=== PATIENT | female | born 1950 | race Caucasian/White ===

== ENCOUNTER → 2016-12-02 | Outpatient (CLI) | payer OTHER ==
[~2016-12-02] MED LIST: ACET-1256 PO; ADVIN50/60 INH; ADVIN50050 INH; ALBU1AER9 INH; ASPEC81 PO; ASPI81TA28 PO; B-CO1CAP17 PO; B-COCAP20 PO; CALC667C PO; CARV25TA2 PO; CRG25 PO; FERR325T51 PO; HYDR-5688 PO; IBUP-103 PO; INSDGI SC; INSDGIPEN SC; IPRASOL4 INH; ISOS60TA25 PO; LINE1TAB2 PO; LINE600T5 PO; MOME200A INH; MULT-506 PO; NVLGI/PEN SC; NVLGI/PEN SQ; OXGN; OXYC-57 PO; PROM25TA9 PO; SPRIN/30 INH; TIOTCAP INH; [UNRECOGNIZED DRUG - CODE] INJ
--- NOTE | 2016-12-02 11:57 | DIAGNOSTIC IMAGING REPORT ---
EXAMINATION: RENAL ULTRASOUND CLINICAL HISTORY: R FLANK PAIN COMPARISON STUDY: 10/18/2013 FINDINGS: The right kidney measures 9.9 cm. The left kidney measures 10.3 cm. There is no evidence of hydronephrosis. There is a 7 mm cortical cyst involving the upper pole the left kidney. The bladder was not well-distended. Neither ureteral jet was visualized. The spleen was mildly enlarged measuring 14.7 cm. IMPRESSION : 1. 7 mm upper pole left renal cyst 2. No evidence of hydronephrosis 3. Mild splenomegaly Electronically signed by: Zafar Ordoñez M.D. 12/02/2016 11:54 AM Dictated Date/Time: 12/02/2016 11:52 AM
== END | disposition home or self-care (01) ==
LOC: C.ULTR 11:18
PROVIDERS: ATTEND Internal Medicine Nephrology
DX: R10.11 Right upper quadrant pain (principal); R10.32 Left lower quadrant pain; N28.1 Cyst of kidney, acquired

== ENCOUNTER 2017-03-17 01:39 | Inpatient (IN) | payer OTHER ==
[~2017-03-17] VITALS: Ht 157.5 cm; Wt 87.1 kg
[2017-03-17] VITALS (27 sets, daily range): BP systolic 93–146; BP diastolic 38–79; PULSE 60–103; TEMP 36.5–36.8; O2SAT 92–100; BMI 36.2
[~2017-03-17 01:39] MED LIST changes: -ACET-1256 PO; -ADVIN50/60 INH; -ASPI81TA28 PO; -B-CO1CAP17 PO; -CALC667C PO; -CRG25 PO; -HYDR-5688 PO; -IBUP-103 PO; -INSDGIPEN SC; -LINE1TAB2 PO; -LINE600T5 PO; -MOME200A INH; -NVLGI/PEN SC; -OXGN; -OXYC-57 PO; -PROM25TA9 PO; -SPRIN/30 INH
[2017-03-17 01:56] LABS: BASO % 0.3 %; BASO ABS # 0.04 K/uL (0-0.2); COMPLETE YES; EOS % 1.9 %; HEMATOCRIT 36.4 % (37-47); IG% 0.5 %; LYMPH % 12.5 %; MEAN CELL VOLUME 99.5 fL (80-100); MEAN CORPUSCULAR HGB CONC 32.1 g/dl (32-36); MEAN PLATELET VOLUME 9.9 fL (7.4-10.4); NEUT % 79.8 %; PLATELET COUNT 312 K/uL (130-400); RED BLOOD COUNT 3.66 M/uL (4.2-5.4); WHITE BLOOD COUNT 15.15 K/uL (4.8-10.8)
[2017-03-17] MEDS ORDERED: FUROSEMIDE INJ 80 MG in SYRINGE 0 ML IV STA (02:02)
[2017-03-17] MEDS ORDERED: ADVIN50/60 INH (02:03)
[2017-03-17] MEDS ORDERED: ASPI81TA28 PO (02:03)
[2017-03-17] MEDS ORDERED: SPRIN/30 INH (02:05)
[2017-03-17] MEDS ORDERED: INSDGI SC (02:05)
[2017-03-17] MEDS ORDERED: FUROSEMIDE 40 MG/4 ML VIAL ONE (02:08)
--- NOTE | 2017-03-17 02:09 | EMERGENCY ROOM VISIT NOTE ---
History Report prepared by Abbyibbrandin: Hilary Mora Under the Supervision of: Dr. Ludwig Corona D.O. First contact with patient: 01:40 Chief Complaint: RESPIRATORY DISTRESS Stated Complaint: RESPIRATORY DISTRESS History of Present Illness The patient is a 66 year old female who presents to the Emergency Room with complaints of an episode of severe shortness of breath starting prior to arrival. Per EMS, the patient is supposed to go to dialysis 3 times a week and missed a round two days ago. EMS notes that he abdomen became distended after being put on BiPAP. The patient was given Duo neb, albuterol neb, and CPAP prior to arrival by EMS. The patient reports that she missed her dialysis because she had to take care of her brain injured son and she couldn't leave him alone. The patient denies abdominal pain, nausea, chest pain, and dizziness. Source of History: patient Onset: prior to arrival Position: other (global) Symptom Intensity: severe Quality: other (global) Timing: other (episode) Associated Symptoms: No chest pain, No nausea, No abdominal pain Note: The patient denies dizziness. Review of Systems ROS unattainable due to clinical condition. Past Medical & Surgical Medical Problems: (1) Acute kidney injury (2) Acute respiratory distress (3) Chronic kidney disease (CKD) stage G4/A1, severely decreased glomerular filtration rate (GFR) between 15-29 mL/min/1.73 square meter and albuminuria creatinine ratio less than 30 mg/g (4) Chronic kidney disease, stage 4 (severe) (5) Chronic kidney disease, stage III (moderate) (6) Chronic osteomyelitis (7) Congestive heart failure (CHF) (8) Congestive heart failure with left ventricular systolic dysfunction (9) COPD (chronic obstructive pulmonary disease) (10) DIAB MANJIT WO COMPL, TYPE II OR UNSPEC TYPE, NOT UNCNTRLD (11) Elevated troponin (12) Hypercholesterolemia (13) Hyperkalemia, diminished renal excretion (14) Hypertension (15) HYPERTENSION NOS (16) Hypoxemia (17) Kidney disease (18) Metabolic acidosis with normal anion gap and failure of bicarbonate regeneration (19) Obesity (20) Obstructive sleep apnea (21) Peripheral neuropathy (22) PNEUMONIA, ORGANISM NOS (23) Proteinuria (24) Pulmonary edema (25) Secondary hyperparathyroidism of renal origin (26) SOB (shortness of breath) (27) Vitamin D deficiency, unspecified (28) Volume overload Family History FH: HTN (hypertension) Social History Smoking Status: Never Smoker Smokeless Tobacco Use: No Drug Use: none Housing Status: lives with family Current/Historical Medications Scheduled Aspirin (Aspirin Ec), 81 MG PO DAILY Carvedilol (Coreg), 25 MG PO BID Fluticasone Prop/Salmeterol (Advair Diskus 500/50 60 Dose), 1 PUFF INH BID Insulin Aspart (Novolog Flexpen), 10 UNITS SQ TIDM Insulin Glargine (Lantus), 20 UNITS SC BID Ipratropium-Albuterol (Duoneb), 1 TREATMENT INH QID Tiotropium [place] (Spiriva Handihaler), 1 CAP INH DAILY Allergies Coded Allergies: Hydralazine (Verified Allergy, Intermediate, rash, 03/17/17) Isosorbide Nitrate (Verified Allergy, Unknown, ITCHING, 03/17/17) EZE Inhibitors (Verified Adverse Reaction, Unknown, DUE TO CKD, 03/17/17) Physical Exam Vital Signs Date Time Temp Pulse Resp B/P (MAP) Pulse Ox O2 Delivery O2 Flow Rate FiO2 03/17/17 03:00 37.0 98 28 156/101 94 Nasal Cannula 4.0 03/17/17 02:17 94 Nasal Cannula 4.0 03/17/17 02:12 101 23 136/62 94 Nasal Cannula 4.0 03/17/17 02:10 90 Nasal Cannula 2.0 03/17/17 02:01 101 23 151/69 97 Nasal Cannula 2.0 03/17/17 01:55 103 100 100 03/17/17 01:51 100 26 161/75 100 BiPAP 100 03/17/17 01:47 106 03/17/17 01:45 108 24 160/80 100 BiPAP 03/17/17 01:45 100 BiPAP 100 03/17/17 01:45 BiPAP 03/17/17 01:45 100 BiPAP 100 Physical Exam GENERAL: Awake, alert, well-appearing, in no distress HENT: Normocephalic, atraumatic. Oropharynx unremarkable. EYES: Normal conjunctiva. Sclera non-icteric. NECK: Supple. No nuchal rigidity. FROM. No JVD. RESPIRATORY: Mild respiratory distress. Crackles. CARDIAC: Tachycardic rate, normal rhythm. Extremities warm and well perfused. Pulses equal. ABDOMEN: Distended. No tenderness to palpation. No rebound or guarding. No masses. RECTAL: Deferred. MUSCULOSKELETAL: Chest examination reveals no tenderness. The back is symmetrical on inspection without obvious abnormality. There is no CVA tenderness to palpation. No joint edema. AV graft in LUE. LOWER EXTREMITIES: Calves are equal size bilaterally and non-tender. Bilateral edema. No discoloration. NEURO: Normal sensorium. No sensory or motor deficits noted. SKIN: No rash or jaundice noted. Medical Decision & Procedures ER Provider Diagnostic Interpretation: CHEST X_RAY: Findings: The results were interperted by me. The x-ray shows congestive heart failure. Laboratory Results 03/17/17 01:45 Red Blood Count 3.66, Mean Corpuscular Volume 99.5, Mean Corpuscular Hemoglobin 32.0, Mean Corpuscular Hemoglobin Concent 32.1, Mean Platelet Volume 9.9, Neutrophils (%) (Auto) 79.8, Lymphocytes (%) (Auto) 12.5, Monocytes (%) (Auto) 5.0, Eosinophils (%) (Auto) 1.9, Basophils (%) (Auto) 0.3, Neutrophils # (Auto) 12.10, Lymphocytes # (Auto) 1.90, Monocytes # (Auto) 0.75, Eosinophils # (Auto) 0.29, Basophils # (Auto) 0.04 03/17/17 01:45 Test 03/17/17 01:45 03/17/17 01:49 White Blood Count 15.15 K/uL (4.8-10.8) Red Blood Count 3.66 M/uL (4.2-5.4) Hemoglobin 11.7 g/dL (12.0-16.0) Hematocrit 36.4 % (37-47) Mean Corpuscular Volume 99.5 fL (80-100) Mean Corpuscular Hemoglobin 32.0 pg (25-34) Mean Corpuscular Hemoglobin Concent 32.1 g/dl (32-36) Platelet Count 312 K/uL (130-400) Mean Platelet Volume 9.9 fL (7.4-10.4) Neutrophils (%) (Auto) 79.8 % Lymphocytes (%) (Auto) 12.5 % Monocytes (%) (Auto) 5.0 % Eosinophils (%) (Auto) 1.9 % Basophils (%) (Auto) 0.3 % Neutrophils # (Auto) 12.10 K/uL (1.4-6.5) Lymphocytes # (Auto) 1.90 K/uL (1.2-3.4) Monocytes # (Auto) 0.75 K/uL (0.11-0.59) Eosinophils # (Auto) 0.29 K/uL (0-0.5) Basophils # (Auto) 0.04 K/uL (0-0.2) RDW Standard Deviation 56.7 fL (36.4-46.3) RDW Coefficient of Variation 16.1 % (11.5-14.5) Immature Granulocyte % (Auto) 0.5 % Immature Granulocyte # (Auto) 0.07 K/uL (0.00-0.02) Anion Gap 7.0 mmol/L (3-11) Est Creatinine Clear Calc Drug Dose 17.2 ml/min Estimated GFR () 15.3 Estimated GFR (Non- 13.2 BUN/Creatinine Ratio 16.8 (10-20) Calcium Level 9.0 mg/dl (8.5-10.1) Total Bilirubin 0.4 mg/dl (0.2-1) Aspartate Amino Transf (AST/SGOT) 19 U/L (15-37) Alanine Aminotransferase (ALT/SGPT) 22 U/L (12-78) Alkaline Phosphatase 162 U/L (45-117) Total Protein 7.8 gm/dl (6.4-8.2) Albumin 3.4 gm/dl (3.4-5.0) Globulin 4.4 gm/dl (2.5-4.0) Albumin/Globulin Ratio 0.8 (0.9-2) Beta-Hydroxybutyric Acid 2.32 mg/dL (0.2-2.81) Bedside Glucose 447 mg/dl (70-90) Laboratory results reviewed by me Medications Administered Medications (Trade) Dose Ordered Sig/Tu Route Start Time Stop Time Status Last Admin Dose Admin Furosemide (Lasix Inj) 80 mg STK-MED ONCE .ROUTE 03/17/17 02:08 03/17/17 02:09 DC 03/17/17 02:13 80 MG Aspirin (Aspirin Chew) 324 mg NOW STAT PO 03/17/17 02:29 03/17/17 02:30 DC 03/17/17 02:54 324 MG ECG Indication: SOB/dyspnea Rate (beats per minute): 104 Rhythm: sinus tachycardia Findings: nonspecific-ST abn, RBBB (incomplete), left axis deviation ED Course 0139: The patient was evaluated in room B1. A complete history and physical exam was performed. 0202: Ordered Furosemide 80 mg/ Syringe 8 ml @ 4 mls/min IV. 0208: Ordered Lasix Inj 80 mg .ROUTE. 0215: The patient is feeling much better. Her respiratory stats have greatly improved. She is on 4 L of O2 and shows no signs of distress. 0248: Discussed the patient's case with Dr. Velazquez. The patient will be evaluated for further treatment and disposition. Medical Decision Differential diagnosis: Etiologies such as infections, reactive airway disease, pneumonia, pneumothorax , COPD, CHF, cardiac ischemia, pulmonary embolism, musculoskeletal, gastrointestinal, as well as others were entertained. Much improved after oxygen, and lasix; given asa for elevated troponin; will admit to [facility]; discussed eval with patient Medication Reconcilliation Current Medication List: was personally reviewed by me Blood Pressure Screening Patient's blood pressure: Elevated blood pressure Chronic, medical end stage renal disease. The patient will be admitted and further monitored. Consults Time Called: [phone] Consulting Physician: Monique Goetz Returned Call: [phone] Discussed the patient's case with Dr. Velazquez. The patient will be evaluated for further treatment and disposition. Impression Primary Impression: Acute respiratory distress Additional Impressions: Pulmonary edema Elevated troponin End stage renal disease Critical Care I have personally spent greater than 35 minutes of critical care time in the direct management of this patient. This includes bedside care, interpretation of diagnostic studies, and testing, discussion with consultants, patient, and family members, and other required patient management activities. This 35 minutes is in excess of all separately billable procedures. Scribe Attestation The scribe's documentation has been prepared under my direction and personally reviewed by me in its entirety. I confirm that the note above accurately reflects all work, treatment, procedures, and medical decision making performed by me. Departure Information Dispostion Being Evaluated By Hospitalist Patient Instructions Asthma - [facility], COPD - [facility], Croup - [facility], My [facility] Health Problem Qualifiers
[2017-03-17] MEDS ORDERED: ASPIRIN 324 MG CHEW PO STA (02:29)
[2017-03-17 02:35] LABS: ALB/GLOB RATIO 0.8 (0.9-2); BUN/CREATININE RATIO 16.8 (10-20); CREATININE 3.4 mg/dl (0.60-1.20); POTASSIUM 5.3 mmol/L (3.5-5.1)
[2017-03-17 02:47] LABS: BETA-HYDROXYBUTYRATE 2.32 mg/dL (0.2-2.81)
[2017-03-17] MEDS ORDERED: GLUCOSE 40% GEL 15 GM TUBE PO PRN (03:15)
[2017-03-17] MEDS ORDERED: GLUCAGON FOR INJ 1 MG VIAL SQ PRN (03:15)
[2017-03-17] MEDS ORDERED: DEXTROSE 50% 50 ML SYR IV PRN (03:15)
[2017-03-17] MEDS ORDERED: GLUCOSE 10 TABS/TUBE PO PRN (03:15)
--- NOTE | 2017-03-17 03:35 | History and Physical ---
History & Physical Date & Time of Service: Mar 17, 2017 at 03:10 Chief Complaint: Respiratory Distress Primary Care Physician: Karla Todd M.D. History of Present Illness Source: patient 65 year old female ESRD, COPD, and chronic diastolic CHF - Pt has dialysis Tue, [place], Sat. She missed her Thursday dialysis and has become progressively SOB over the past 2 days. She has a dry cough which she states is chronic. She denies CP, fevers or rigors. The pt was hypoxic on arrival to the ER and responded well to Lasix and Albuterol. Initial CXR is consistent with vascular congestion and a L effusion. Past Medical/Surgical History Medical Problems: (1) Chronic osteomyelitis Status: Chronic (2) COPD (chronic obstructive pulmonary disease) Status: Chronic (3) DIAB MANJIT WO COMPL, TYPE II OR UNSPEC TYPE, NOT UNCNTRLD Status: Chronic (4) HYPERTENSION NOS Status: Chronic (5) ESRD - hemodialysis Status: Chronic (6) PNEUMONIA, ORGANISM NOS Status: Resolved 7) Grade 2 diastolic dysfunction - echo 2015 Family History FH: HTN (hypertension) Social History Pt has COPD due to 2nd-hand smoke Smoking Status: Never Smoker Smokeless Tobacco Use: No Drug Use: none Marital Status: Housing status: lives with family Occupational Status: retired Immunizations History of Influenza Vaccine: Yes Influenza Vaccine Date: Jul 08, 2011 History of Tetanus Vaccine?: No History of Pneumococcal: No Pneumococcal Date: Mar 07, 2010 History of Hepatitis B Vaccine: No Multi-Drug Resistant Organisms History of MDRO: Yes Type of MDRO: MRSA Allergies Coded Allergies: Hydralazine (Verified Allergy, Intermediate, rash, 03/17/17) Isosorbide Nitrate (Verified Allergy, Unknown, ITCHING, 03/17/17) EZE Inhibitors (Verified Adverse Reaction, Unknown, DUE TO CKD, 03/17/17) Home Medications Scheduled Aspirin (Aspirin Ec), 81 MG PO DAILY Carvedilol (Coreg), 25 MG PO BID Fluticasone Prop/Salmeterol (Advair Diskus 500/50 60 Dose), 1 PUFF INH BID Insulin Aspart (Novolog Flexpen), 10 UNITS SQ TIDM Insulin Glargine (Lantus), 20 UNITS SC BID Ipratropium-Albuterol (Duoneb), 1 TREATMENT INH QID Tiotropium Bivalve (Spiriva Handihaler), 1 CAP INH DAILY Review of Systems Constitutional: No fever, No chills, No sweats Eyes: No worsening of vision ENT: No hearing loss, No unusual epistaxis, No nasal symptoms Respiratory: + cough, + shortness of breath, + dyspnea on exertion, + dyspnea at rest, No sputum, No wheezing Cardiovascular: + orthopnea, No chest pain, No PND Abdomen: No pain, No nausea, No vomiting Musculoskeletal: No joint pain Genitourinary - Female: No dysuria Neurologic: No memory loss, No paralysis, No weakness Psychiatric: No depression symptoms Endocrine: No fatigue Hematologic / Lymphatic: No abnormal bleeding/bruising Integumentary: No rash Allergic / Immunologic: No environmental allergies Physical Exam Vital Signs Date Time Temp Pulse Resp B/P (MAP) Pulse Ox O2 Delivery O2 Flow Rate FiO2 03/17/17 03:00 37.0 98 28 156/101 94 Nasal Cannula 4.0 03/17/17 02:17 94 Nasal Cannula 4.0 03/17/17 02:12 101 23 136/62 94 Nasal Cannula 4.0 03/17/17 02:10 90 Nasal Cannula 2.0 03/17/17 02:01 101 23 151/69 97 Nasal Cannula 2.0 03/17/17 01:55 103 100 100 03/17/17 01:51 100 26 161/75 100 BiPAP 100 03/17/17 01:47 106 03/17/17 01:45 108 24 160/80 100 BiPAP 03/17/17 01:45 100 BiPAP 100 03/17/17 01:45 BiPAP 03/17/17 01:45 100 BiPAP 100 General Appearance: WD/WN, no apparent distress Head: normocephalic Eyes: normal inspection, PERRL, EOMI ENT: normal ENT inspection, pharynx normal Neck: supple, + JVD Respiratory/Chest: chest non-tender, + decreased breath sounds, + crackles (L base) Cardiovascular: regular rate, rhythm, no edema, no gallop Abdomen/GI: normal bowel sounds, non tender, soft Back: normal inspection, no CVA tenderness, no muscle spasm, normal range of motion Extremities/Musculoskelatal: normal inspection, no calf tenderness, normal capillary refill, no pedal edema, normal range of motion Neurologic/Psych: volunteer services manager II-XII nml as tested, no motor/sensory deficits, alert, normal mood/affect, normal reflexes, oriented x 3 Skin: normal color, warm/dry Diagnostics Laboratory Results Results Past 24 Hours Test 03/17/17 01:45 03/17/17 01:49 Range/Units White Blood Count 15.15 4.8-10.8 K/uL Red Blood Count 3.66 4.2-5.4 M/uL Hemoglobin 11.7 12.0-16.0 g/dL Hematocrit 36.4 37-47 % Mean Corpuscular Volume 99.5 80-100 fL Mean Corpuscular Hemoglobin 32.0 25-34 pg Mean Corpuscular Hemoglobin Concent 32.1 32-36 g/dl Platelet Count 312 130-400 K/uL Mean Platelet Volume 9.9 7.4-10.4 fL Neutrophils (%) (Auto) 79.8 % Lymphocytes (%) (Auto) 12.5 % Monocytes (%) (Auto) 5.0 % Eosinophils (%) (Auto) 1.9 % Basophils (%) (Auto) 0.3 % Neutrophils # (Auto) 12.10 1.4-6.5 K/uL Lymphocytes # (Auto) 1.90 1.2-3.4 K/uL Monocytes # (Auto) 0.75 0.11-0.59 K/uL Eosinophils # (Auto) 0.29 0-0.5 K/uL Basophils # (Auto) 0.04 0-0.2 K/uL RDW Standard Deviation 56.7 36.4-46.3 fL RDW Coefficient of Variation 16.1 11.5-14.5 % Immature Granulocyte % (Auto) 0.5 % Immature Granulocyte # (Auto) 0.07 0.00-0.02 K/uL Sodium Level 137 136-145 mmol/L Potassium Level 5.3 3.5-5.1 mmol/L Chloride Level 106 98-107 mmol/L Carbon Dioxide Level 24 21-32 mmol/L Anion Gap 7.0 3-11 mmol/L Blood Urea Nitrogen 57 7-18 mg/dl Creatinine 3.40 0.60-1.20 mg/dl Est Creatinine Clear Calc Drug Dose 17.2 ml/min Estimated GFR () 15.3 Estimated GFR (Non- 13.2 BUN/Creatinine Ratio 16.8 10-20 Random Glucose 435 70-99 mg/dl Calcium Level 9.0 8.5-10.1 mg/dl Total Bilirubin 0.4 0.2-1 mg/dl Aspartate Amino Transf (AST/SGOT) 19 15-37 U/L Alanine Aminotransferase (ALT/SGPT) 22 12-78 U/L Alkaline Phosphatase 162 45-117 U/L Total Protein 7.8 6.4-8.2 gm/dl Albumin 3.4 3.4-5.0 gm/dl Globulin 4.4 2.5-4.0 gm/dl Albumin/Globulin Ratio 0.8 0.9-2 Beta-Hydroxybutyric Acid 2.32 0.2-2.81 mg/dL Bedside Glucose 447 70-90 mg/dl Diagnostic Radiology CXR: Pulmonary vascular congestion, L pleural effusion. EKG NSR , incomplete LBBB - no significant change Impression Assessment and Plan 65 year old female ESRD, COPD, and chronic diastolic CHF - Pt has dialysis Tue, [place], Sat. She missed her Thursday dialysis and has become progressively SOB over the past 2 days. She has a dry cough which she states is chronic. She denies CP, fevers or rigors. The pt was hypoxic on arrival to the ER and responded well to Lasix and Albuterol. CXR is consistent with vascular congestion and a L effusion. 1) Pulmonary edema due to ESRD - diastolic CHF may contribute - has responded well to 80mg Lasix and Albuterol. Will monitor on telemetry and consult nephrology for AM dialysis. 2) COPD - unclear if there is an element of exacerbation - will cont breathing treatments and can institute steroids if she remains SOB following dialysis. 3) Pleural effusion - may need thoracentesis if this dose not improve with diuresis and dialysis. Full code - heparin prophylaxis Total time for this admit including review of labs, meds, CXR, EKG, records - discussion with pt and ER attending - 35 min Level of Care Telemetry Resuscitation Status FULL RESUSCITATION VTE Prophylaxis VTE Risk Assessment Done? Y/N: Yes Risk Level: Moderate Given or contraindicated: Unfractionated heparin SQ
[2017-03-17] MEDS ORDERED: PHARMACY GLYCEMIC MGMT CONSULT PRN (05:00)
[2017-03-17] MEDS ORDERED: INSULIN HUMAN REGULAR PER UNIT 10 UNITS in SYRINGE 9.9 ML IV SCH (05:15)
[2017-03-17] MEDS: INSULIN ASPART 100 UNITS/ML 3 ML PEN SC SCH ×5 (05:25→21:06)
[2017-03-17 06:12] LABS: URINE APPEARANCE CLEAR (CLEAR); URINE BILIRUBIN NEG (NEG); URINE COLOR YELLOW; URINE NITRITE NEG (NEG); URINE SPECIFIC GRAVITY 1.014 (1.000-1.030); UROBILINOGEN NEG (NEG)
[2017-03-17 06:13] LABS: MANUAL MICROSCOPIC REQUIRED? NO; REVIEW REQ? NO
--- NOTE | 2017-03-17 06:41 | DIAGNOSTIC IMAGING REPORT ---
CHEST ONE VIEW PORTABLE CLINICAL HISTORY: Shortness of breath COMPARISON STUDY: 07/01/2016 FINDINGS: The heart is enlarged. There is asymmetric pulmonary edema pattern right greater than left.[ IMPRESSION: Asymmetric pulmonary edema pattern Electronically signed by: Zafar Ordoñez M.D. 03/17/2017 6:40 AM Dictated Date/Time: 03/17/2017 6:39 AM
[2017-03-17] MEDS: ALBUT/IPRATROP 3MG/0.5MG NEB 3 ML VIAL INH SCH ×4 (07:06→19:00)
[2017-03-17 07:57] LABS: PROTHROMBIN TIME (PATIENT) 10.7 SECONDS (9.0-12.0)
[2017-03-17] MEDS: FLUTICASONE/SALMETEROL (ADVAIR) 500/50 INH 14 PUFF INH SCH ×2 (08:16→21:05)
[2017-03-17] MEDS: ASPIRIN 81 MG ECTAB PO SCH (08:17)
[2017-03-17] MEDS: CARVEDILOL 25 MG TAB PO SCH ×2 (08:17→21:05)
[2017-03-17] MEDS ORDERED: INSULIN GLARGINE SOLOSTAR 100 UNITS/ML 3 ML PEN SC SCH ×2 (09:00→21:00)
--- NOTE | 2017-03-17 09:15 | Pharmacy Progress Note ---
Glycemic Control Intl Consult Date of Service Mar 17, 2017. Scope Glycemic Pharmacist consulted by Dr Muller on 03/17/17 for glycemic control and to write orders per [facility] inpatient glycemic control protocol Objective Weight (Kilograms): 89.800 Accuchecks BSG (last 24hrs): Test 03/17/17 01:45 03/17/17 01:49 03/17/17 04:45 03/17/17 06:03 Random Glucose 435 mg/dl (70-99) Bedside Glucose 447 mg/dl (70-90) 421 mg/dl (70-90) 358 mg/dl (70-90) Test 03/17/17 06:55 Bedside Glucose 303 mg/dl (70-90) Laboratory Data (last 24hrs) Test 03/17/17 01:45 Anion Gap 7.0 mmol/L BUN/Creatinine Ratio 16.8 Blood Urea Nitrogen 57 mg/dl Creatinine 3.40 mg/dl Potassium Level 5.3 mmol/L Sodium Level 137 mmol/L White Blood Count 15.15 K/uL Red Blood Count 3.66 M/uL Hemoglobin 11.7 g/dL Hematocrit 36.4 % Mean Corpuscular Volume 99.5 fL Mean Corpuscular Hemoglobin 32.0 pg Mean Corpuscular Hemoglobin Concent 32.1 g/dl Platelet Count 312 K/uL Mean Platelet Volume 9.9 fL Neutrophils (%) (Auto) 79.8 % Lymphocytes (%) (Auto) 12.5 % Monocytes (%) (Auto) 5.0 % Eosinophils (%) (Auto) 1.9 % Basophils (%) (Auto) 0.3 % Neutrophils # (Auto) 12.10 K/uL Lymphocytes # (Auto) 1.90 K/uL Monocytes # (Auto) 0.75 K/uL Eosinophils # (Auto) 0.29 K/uL Basophils # (Auto) 0.04 K/uL HbA1c * A1c would be somewhat unreliable in this patient secondary to ESRD. There are interactions between the A1c analyzing technique and high levels of urea in ESRD , reduced RBC life span, iron deficiency anemia, and EPO administration. HbA1c > 7.5% in ESRD patient may overestimate the extent of hyperglycemia in ESRD patients. * Best to assess degree of glycemic control by POC BSG trends. Recent Pertinent Medications Outpatient Anti-diabetic Regimen: * Lantus 20 units SQ BID * NovoLog 10 units SQ TIDM The patient is currently receiving: * Basal insulin: Lantus 20 units every 12 hours * Correctional Insulin: Novolog Correction per scale ACHS Goal Range: Low 130 mg/dL - High 180 mg/dL Correction Factor: 25 mg/dL/unit * Prandial insulin: Per carb ratio of 1 unit per 8 grams CHO consumed Assessment & Plan ASSESSMENT: * 66yo T2DM female known to pharmacy from previous admissions glycemic consults. * Pt with severe hyperglycemia on admission secondary to missing/skipping multiple doses of insulin since Thursday (03/15/17) d/t illness, exhaustion. * Per previous admissions, pt typically requires ~ 60 units of insulin per day for near-adequate control. * Pt with "brittle" diabetes with large BSG swings, sometimes for unknown reasoning. * BSGs typically are "lower" and better controlled on HD days * Since pt missed so many doses of insulin, will need to get back to steady state. Will continue current orders, (est TDD of ~ 80 units/day) and decrease regimen accordingly when BSGs start trending downwards. * ADA & AACE recommend a goal blood sugar range 140-180 mg/dl for the majority of critically ill & non-critically ill patients. However, more stringent targets may be selected in individual cases. PLAN FOR INPATIENT GLYCEMIC CONTROL: Continue regimen based on estimated TDD of ~ 80 units/day. Per previous admissions, this may be too aggressive once acute hyperglycemia resolved and Lantus is at steady state. Will change to TDD of ~ 60 units/day when BSGs start trending downwards. * Basal insulin * Lantus 20 units SQ BID * Bolus insulin * NovoLog per scale ACHS or Q6hrs while NPO * Goal Range: Low 120 mg/dL - High 150 mg/dL * Correction Factor: 20 mg/dL/unit * Nutritional / Prandial insulin per carb ratio of 1 unit per 7 grams CHO consumed * Please note that the plan above was derived based on current level of insulin resistance and hospital stress. These recommendations are appropriate for inpatient admission only. Plan of care upon discharge will need to be reassessed to avoid potential outpatient hypo/hyperglycemia. Thank you.
[2017-03-17] MEDS ORDERED: HEPARIN SOD (PORCINE) 1000 UNIT/ML 10 ML VIAL IV SCH ×2 (11:00)
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
[2017-03-17] MEDS: HEPARIN SOD 5000 UNIT/0.5 ML CARP SQ SCH ×2 (14:18→21:08)
--- NOTE | 2017-03-17 14:31 | Progress Note ---
Progress Note Date of Service Mar 17, 2017. Progress Note Admitted after midnight. Patient seen and examined by me this morning. She complains of shortness of breath but states that it has improved since arrival. She also complains of a non-productive cough and fatigue. The patient denies fevers, chills, sweats, chest pain, palpitations, claudication, wheezing, nausea, vomiting, abdominal pain, dysuria, hematuria, urinary retention, paralysis, weakness, numbness and tingling. Physical exam pertinent for diffuse decreased breath sounds, exam otherwise unremarkable. A/P: SOB, ESRD on hemodialysis--improving -Pt on / schedule for dialysis, missed Thursday session b/c she had no one to watch her son who requires 09/03 care -Nephrology consulted, pt scheduled for dialysis today -See how pt feels following dialysis. SOB could be contributed to a possible COPD exacerbation or CHF exacerbation -[place] better after Lasix and albuterol COPD, possible exacerbation -Continue nebs -Consider steroids if still with SOB following dialysis DM II--last HgbA1c checked in 2015 was 9.9 -Pharmacy consulted for glycemic control -Insulin sliding scale -Lantus per protocol -Check BSGs q ac and qhs -Recheck HgbA1c
[2017-03-17 14:55] LABS: POINT OF CARE PRO-BNP > 20000 pg/ml (0-900)
[2017-03-18 03:58] VITALS: BP 115/56; PULSE 63; TEMP 36.7; O2SAT 94
[2017-03-18] MEDS: HEPARIN SOD 5000 UNIT/0.5 ML CARP SQ SCH ×2 (06:07→12:55)
[2017-03-18 06:33] LABS: ESTIMATED AVERAGE GLUCOSE 226 mg/dl; HA1C FLAG Normal (Normal)
[2017-03-18 06:52] LABS: HEMATOCRIT 30.7 % (37-47); MEAN CELL VOLUME 97.5 fL (80-100); MEAN CORPUSCULAR HEMOGLOBIN 31.4 pg (25-34); MEAN CORPUSCULAR HGB CONC 32.2 g/dl (32-36); MEAN PLATELET VOLUME 9.7 fL (7.4-10.4); PLATELET COUNT 218 K/uL (130-400); RED BLOOD COUNT 3.15 M/uL (4.2-5.4); WHITE BLOOD COUNT 5.55 K/uL (4.8-10.8)
[2017-03-18 07:00] VITALS: PULSE 61; O2SAT 98
[2017-03-18] MEDS: ALBUT/IPRATROP 3MG/0.5MG NEB 3 ML VIAL INH SCH ×3 (07:00→15:42)
[2017-03-18 07:29] LABS: BUN/CREATININE RATIO 14.3 (10-20); CALCIUM 8.7 mg/dl (8.5-10.1); CREATININE 2.3 mg/dl (0.60-1.20); POTASSIUM 4.3 mmol/L (3.5-5.1)
[2017-03-18 07:32] VITALS: BP 128/55; PULSE 61; TEMP 36.5; O2SAT 92
[2017-03-18] MEDS: ASPIRIN 81 MG ECTAB PO SCH (08:03)
[2017-03-18] MEDS: CARVEDILOL 25 MG TAB PO SCH (08:03)
[2017-03-18] MEDS: FLUTICASONE/SALMETEROL (ADVAIR) 500/50 INH 14 PUFF INH SCH (08:03)
[2017-03-18] MEDS: INSULIN ASPART 100 UNITS/ML 3 ML PEN SC SCH ×2 (08:06→12:54)
[2017-03-18] MEDS ORDERED: INSULIN GLARGINE SOLOSTAR 100 UNITS/ML 3 ML PEN SC SCH (09:00)
--- NOTE | 2017-03-18 09:21 | Pharmacy Progress Note ---
Glycemic Control Progress Note Date of Service Mar 18, 2017. Scope Glycemic Pharmacist consulted for glycemic control to write orders per [facility] inpatient glycemic control protocol. Objective Accuchecks BSG (last 24hrs): Test 03/17/17 11:33 03/17/17 16:07 03/17/17 20:30 03/18/17 05:50 Bedside Glucose 194 mg/dl (70-90) 129 mg/dl (70-90) 174 mg/dl (70-90) Random Glucose 133 mg/dl (70-99) Test 03/18/17 06:47 Bedside Glucose 143 mg/dl (70-90) HbA1c: Test 03/17/17 01:45 Hemoglobin A1c 9.5 % (4.5-5.6) H Recent Pertinent Medications The patient is currently receiving: * Basal insulin: Lantus 15 units every 12 hours (20 units for BSG > 180) * Correctional Insulin: Novolog Correction per scale ACHS Goal Range: Low 120 mg/dL - High 150 mg/dL Correction Factor: 20 mg/dL/unit * Prandial insulin: Per carb ratio of 1 unit per 7 grams CHO consumed Outpatient Anti-Diabetic Meds * Lantus 20 units SQ BID * NovoLog 10 units SQ TIDM Assessment & Plan ASSESSMENT: * See progress note from 03/17 for more background info, in short: * Pt receiving SQ basal bolus insulin regimen for hyperglycemia secondary to baseline DM (outpatient regimen on hold) * Patient is currently receiving an average of 79 units of insulin per day * BSGs ranging 129 - 194 mg/dl over the past 24hrs * Changes needed to insulin regimen: * AM Fasting BSG = 133 mg/dl. This is in goal range for patient based on inpatient targets and co-morbidities. Since BSGs have improved, will change basal to 15 units BID, instead of a "sliding scale". This is also comparable to patient's basal needs during last admission. * Post-prandial BSGs are in range therefore no changes needed to CF/CR PLAN FOR INPATIENT GLYCEMIC CONTROL: * Change Lantus to 15 units SQ BID * Continue correction factor of 20 mg/dl/unit * Continue carb ratio of 1 unit per 7 grams CHO consumed * Continue goal range of Low 120 mg/dL - High 150 mg/dL RECOMMENDATIONS FOR DISCHARGE: * Will need adjustments to insulin regimen post-discharge as patient's BSGs at home are in the 200s-400s. Need to confirm outpatient Lantus as there are conflicting doses. * Please note that the plan above was derived based on current level of insulin resistance and hospital stress. These recommendations are appropriate for inpatient admission only. Plan of care upon discharge will need to be reassessed to avoid potential outpatient hypo/hyperglycemia. Thank you.
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
--- NOTE | 2017-03-18 10:23 | Clinical Documentation Query ---
ROBSON Yip : CLINICAL DOCUMENTATION QUERY Documentation includes: "SOB, ESRD on hemodialysis--improving -Pt on schedule for dialysis, missed Thursday session b/c she had no one to watch her son who requires 24/7 care -Nephrology consulted, pt scheduled for dialysis today -See how pt feels following dialysis. SOB could be contributed to a possible COPD exacerbation or CHF exacerbation -[place] better after Lasix and albuterol" Other documentation includes a history of "diastolic CHF", "pulmonary edema" who is feeling improved after Lasix and hemodialysis In your clinical opinion is this patient being managed for: ( x ) possible Acute on chronic diastolic CHF secondary to volume overload and subsequent acute pulmonary edema in the setting of missed dialysis. ( ) Other explanation of clinical findings (Please Explain) ( ) Unable to determine (Please Define) ( ) Need to Discuss ( ) Not Agree The medical record reflects the following clinical findings, treatment, and risk factors. Clinical Indicators: As above Treatment: Nephrology consultation, IV Lasix, hemodialysis Risk Factors: Missed dialysis treatment in patient with ESRD Please clarify and document your clinical opinion in the progress notes and discharge summary. Terms such as "probable", "suspected", "likely", "questionable", "possible", or "still to be ruled out" are acceptable. IF IN AGREEMENT, YOU MUST DOCUMENT ABOVE DIAGNOSTIC STATEMENT IN DAILY PROGRESS NOTES AND DISCHARGE SUMMARY. This document is not part of the patient's record. Thank You, Santos Cano, RN [phone]
[2017-03-18 11:28] VITALS: PULSE 64; O2SAT 92
[2017-03-18 11:40] VITALS: BP 132/59; PULSE 67; TEMP 36.9; O2SAT 94
[2017-03-18 12:22] VITALS: Ht 157.5 cm; Wt 87.1 kg
[2017-03-18] MEDS ORDERED: INSDGIPEN SC (14:55)
[2017-03-18] MEDS ORDERED: NVLGI/PEN SQ (14:55)
--- NOTE | 2017-03-18 15:06 | Discharge Instructions ---
Discharge Instructions Date of Service Mar 18, 2017. Admission Reason for Admission: Hypoxemia, Volume Overload Discharge Discharge Diagnosis / Problem: Fluid overload, hypoxemia, hyperglycemia Discharge Goals Goal(s): Decrease discomfort, Improve function, Diagnostic testing, Therapeutic intervention Activity Recommendations Activity Limitations: resume your previous activity (as tolerated) . Instructions / Follow-Up Instructions / Follow-Up You were admitted to the hospital with worsening shortness of breath after missing a dialysis session. You received dialysis as scheduled on Thursday and afterwards felt much better. Nephrology was consulted, and they did not recommend any changes but stressed the importance of going to every dialysis session. While you were in the hospital you were found to have very elevated blood sugars. A [id number], or 3 month average of your blood sugars, was checked and this was elevated at 9.5. Goal [id number] is 7. Pharmacy was consulted to help manage your blood sugars, and a new insulin regimen was recommended for discharge. Medications: *Please take Lantus 15 units subcutaneously twice a day. *Please take Novolog 10 units subcutaneously with meals plus a new sliding scale as follows: * New sliding scale as requested by patient: (to be added to 10 units of Novolog ) * If BSG 150 - 169, add 1 unit * If BSG 170 - 189, add 2 units * If BSG 190 - 209, add 3 units * If BSG 210 - 229, add 4 units * If BSG 230 - 249, add 5 units * If BSG 250 - 269, add 6 units * If BSG 270 - 289, add 7 units * If BSG 290 - 309, add 8 units * If BSG 310 - 329, add 9 units * If BSG 330 - 349, add 10 units * If BSG 350 or above, add 11 units and call doctor *Continue your other home medications as prescribed. Follow up: *You will be scheduled for a follow up appointment with your primary care provider in 1 week regarding your hospital stay and changes to your medications. *Continue your routine follow ups with nephrology. Please seek medical attention if you experience fevers, chills, sweats, dizziness/lightheadedness, loss of consciousness, chest pain, shortness of breath, nausea, vomiting, numbness or tingling. Current Hospital Diet Patient's current hospital diet: Diabetes Type 2 Diet, Renal Diet Discharge Diet Recommended Diet: Diabetes Type 2 Diet, Renal Diet Pending Studies Studies pending at discharge: no Laboratory Results Hemoglobin A1c Test 03/17/17 01:45 Range/Units Estimated Average Glucose 226 mg/dl Hemoglobin A1c 9.5 H 4.5-5.6 % Medical Emergencies . Who to Call and When: Medical Emergencies: If at any time you feel your situation is an emergency, please call 911 immediately. . Non-Emergent Contact Non-Emergency issues call your: Primary Care Provider, Toby Maker Call Non-Emergent contact if: you have a fever, you have any medication questions . Past History Medical & Surgical History: (1) Volume overload (2) Hyperglycemia (3) Hypoxemia . "Provider Documentation" section prepared by Hortencia Smith. . VTE Core Measure Inpt VTE Proph given/why not?: Unfractionated heparin SQ
[2017-03-18 15:35] VITALS: BP 132/59; PULSE 67; TEMP 36.9; O2SAT 94
--- NOTE | 2017-03-18 15:35 | Discharge Summary ---
Discharge Summary Date of Service Mar 18, 2017. Discharge Summary Admission Date: Mar 17, 2017 at 02:46 Discharge Date: Mar 18, 2017 Discharge Disposition: Home Principal Diagnosis: Hypoxemia, fluid overload, ESRD on HD, hyperglycemia Immunizations: Have You Had Influenza Vaccine: Yes Influenza Vaccine Date: Jul 08, 2011 History of Tetanus Vaccine?: No History of Pneumococcal: No Pneumococcal Date: Mar 07, 2010 History of Hepatitis B Vaccine: No Consultations: Nephrology--Dr. Villareal Medication Reconciliation New Medications: Insulin Glargine (Lantus Solostar) 100 Unit/Ml Inj 15 UNITS SC BID for 30 Days, #60 DOSE Continued Medications: Aspirin (Aspirin Ec) 81 Mg Tab 81 MG PO DAILY Carvedilol (Coreg) 25 Mg Tab 25 MG PO BID, TAB Fluticasone Prop/Salmeterol (Advair Diskus 500/50 60 Dose) 1 Ea Aerp 1 PUFF INH BID, INHALER Insulin Aspart (Novolog Flexpen) 100 Units/Ml Inj 10 UNITS SQ TIDM for 30 Days, #1800 UNITS (This prescription has been renewed) USE PER SLIDING SCALE Ipratropium-Albuterol (Duoneb) 3 Ml Nebu 1 TREATMENT INH QID, INHA Tiotropium [place] (Spiriva Handihaler) 30 Puff/540 Mcg Aerp 1 CAP INH DAILY, INHALER Discontinued Medications: Insulin Glargine (Lantus) 100 Unit/Ml Inj 20 UNITS SC BID, VIAL Discharge Exam Patient reports feeling well. She states she is back to baseline and ready to go home. She denies any complaints at this time. The patient denies fevers, chills, sweats, chest pain, palpitations, claudication, cough, wheezing, shortness of breath, nausea, vomiting, abdominal pain, dysuria, hematuria, urinary retention, paralysis, weakness, numbness and tingling. Review of Systems: Constitutional: No fever, No chills, No sweats Eyes: No worsening of vision, No eye pain, No diplopia ENT: No hearing loss, No sore throat, No trouble swallowing Respiratory: No cough, No wheezing, No shortness of breath Cardiovascular: No chest pain, No claudication, No palpitations Abdomen: No pain, No nausea, No vomiting Musculoskeletal: No joint pain, No muscle pain, No calf pain Genitourinary - Female: No dysuria, No urinary retention, No hematuria Neurologic: No paralysis, No weakness, No numbness/tingling Integumentary: No rash, No itch, No color change Physical Exam: General Appearance: WD/WN, no apparent distress, + obese Eyes: normal inspection, PERRL, EOMI ENT: normal ENT inspection, hearing grossly normal, pharynx normal Neck: supple, no JVD, trachea midline Respiratory/Chest: lungs clear, normal breath sounds, no respiratory distress Cardiovascular: regular rate, rhythm, no gallop, no murmur Abdomen / GI: normal bowel sounds, non tender, soft Extremities: normal inspection, no calf tenderness, no pedal edema Neurologic/Psychiatric: alert, normal mood/affect, oriented x 3 Skin: normal color, warm/dry, no rash Hospital Course 65 year old female with a history of ESRD on HD, DM II, COPD, diastolic CHF, HTN , HLD and anemia of chronic disease who presents with progressive SOB x 2 days. The patient is on hemodialysis Thursday//Thursday. She missed her last Thursday treatment because she has a son who requires 24/ care and had no one to stay with him that day. The patient was hypoxic on arrival to the ER but responded well to Lasix and albuterol. CXR was consistent with asymmetric pulmonary edema, R>L. SOB, fluid overload, ESRD on hemodialysis, hypoxemia--resolved -Admit to telemetry. No acute events overnight. Pt in sinus rhyhm with heart rate in 60s -Pt on / schedule for dialysis, missed Thursday session b/c she had no one to watch her son who requires / care -Nephrology consulted, pt received dialysis on 03/17. No further recommendations , stressed the importance of going to all dialysis sessions to pt -Pt's symptoms resolved after dialysis, feels back to baseline. Eager to go home -Pt weaned off oxygen, comfortable on room air Hyperglycemia, DM II--last HgbA1c checked in 2015 was 9.9 -Pharmacy consulted for glycemic control -Insulin sliding scale -Lantus per protocol while inpatient -Check BSGs q ac and qhs -Rechecked HgbA1c on 03/17 was 9.5 -Called pharmacist regarding changing patient's insulin regimen on discharge, following recommendations: -Discharge with Lantus 15 units SC BID -Novolog 10 units SC TIDM plus new sliding scale * If BSG 150 - 169, add 1 unit * If BSG 170 - 189, add 2 units * If BSG 190 - 209, add 3 units * If BSG 210 - 229, add 4 units * If BSG 230 - 249, add 5 units * If BSG 250 - 269, add 6 units * If BSG 270 - 289, add 7 units * If BSG 290 - 309, add 8 units * If BSG 310 - 329, add 9 units * If BSG 330 - 349, add 10 units * If BSG 350 or above, add 11 units and call doctor COPD--stable, no acute exacerbation -Continue home Duonebs QID, Advair BID, and Spiriva qd Chronic diastolic CHF, asymmetric pulmonary edema--stable -Asymptomatic after receiving dialysis, no further Lasix given. Pt received Lasix 80 mg IV x 1 in ED HTN--stable -Continue Coreg 25 mg PO BID DVT prophylaxis -Heparin 5000 units SC q8h Code Status -Level I, FULL RESUSCITATION STATUS Total Time Spent: Greater than 30 minutes This includes examination of the patient, discharge planning, medication reconciliation, and communication with other providers. Discharge Instructions Please refer to the electronic Patient Visit Report (Discharge Instructions) for additional information. Additional Copies To Karla Todd M.D.
[2017-05-25] MEDS ORDERED: LINE1TAB2 PO (13:42)
== END 2017-03-18 16:05 | disposition home or self-care (01) | DRG 291 ==
LOC: EDBD 01:39 → C.EDB 01:42 → C.2T 02:46 → ENRESERV 04:01
PROVIDERS: ADMIT Internal Medicine; ATTEND Hospitalist
DX: I50.33 Acute on chronic diastolic (congestive) heart failure (principal); N18.6 End stage renal disease; I12.0 Hypertensive chronic kidney disease with stage 5 chronic kidney disease or end stage renal disease; J44.9 Chronic obstructive pulmonary disease, unspecified; Z99.2 Dependence on renal dialysis; E11.65 Type 2 diabetes mellitus with hyperglycemia; E11.22 Type 2 diabetes mellitus with diabetic chronic kidney disease; E11.40 Type 2 diabetes mellitus with diabetic neuropathy, unspecified; D72.829 Elevated white blood cell count, unspecified; G47.33 Obstructive sleep apnea (adult) (pediatric); E66.9 Obesity, unspecified; Z68.36 Body mass index [BMI] 36.0-36.9, adult; Z77.22 Contact with and (suspected) exposure to environmental tobacco smoke (acute) (chronic); Z86.14 Personal history of Methicillin resistant Staphylococcus aureus infection; Z79.4 Long term (current) use of insulin; Z79.82 Long term (current) use of aspirin; Z79.899 Other long term (current) drug therapy; Z88.8 Allergy status to other drugs, medicaments and biological substances; Z82.49 Family history of ischemic heart disease and other diseases of the circulatory system

== ENCOUNTER 2017-05-12 13:38 | Inpatient (IN) | payer OTHER ==
[~2017-05-12] VITALS: Ht 157.5 cm; Wt 92.6 kg
[~2017-05-12 13:38] MED LIST changes: +ADVIN50/60 INH; -ADVIN50050 INH; -ALBU1AER9 INH; -ASPEC81 PO; +ASPI81TA28 PO; -B-COCAP20 PO; -FERR325T51 PO; -INSDGI SC; +INSDGIPEN SC; -ISOS60TA25 PO; -MULT-506 PO; +SPRIN/30 INH; -TIOTCAP INH; -[UNRECOGNIZED DRUG - CODE] INJ
[2017-05-12] MEDS ORDERED: HYDR-5688 PO (14:14)
--- NOTE | 2017-05-12 14:33 | EMERGENCY ROOM VISIT NOTE ---
History First contact with patient: 14:08 Chief Complaint: FOOT PAIN Stated Complaint: RIGHT FOOT NEEDS CHECKED History of Present Illness The patient is a 66 year old female with a history of ESRD ( HD on T/R/S), COPD , chronic diastolic CHF and DMII who presents to the Emergency Room with complaints of right fifth toe pain and concern for infection. She notes that approx a week prior she woke up out of bed with pain in her right ankle/ foot. She presented to the [facility] for foot and ankle care and an xray was completed. The xray apparently revealed a fracture so the clinic placed the patient in a foot cast. She noted that the last couple of days she had increasing pain in the right fifth toe. Today she presented for follow up and removal of the case when the pan pusher had seen changes concerning for infection and referred her to the ED for evaluation. The pain is only in the right fifth toe, no radiation, 3/10 and "mild" in characteristic. She notes that she has no chest pain, SOB, rash, abdominal pain but did have a fever this morning of 101F at dialysis which self resolved after dialysis was complete. Review of Systems a 10 point review of systems was completed and was negative aside from above Past Medical/Surgical History Medical Problems: (1) Acute kidney injury (2) Acute respiratory distress (3) Chronic kidney disease (CKD) stage G4/A1, severely decreased glomerular filtration rate (GFR) between 15-29 mL/min/1.73 square meter and albuminuria creatinine ratio less than 30 mg/g (4) Chronic kidney disease, stage 4 (severe) (5) Chronic kidney disease, stage III (moderate) (6) Chronic osteomyelitis (7) Congestive heart failure (CHF) (8) Congestive heart failure (CHF) (9) Congestive heart failure with left ventricular systolic dysfunction (10) COPD (chronic obstructive pulmonary disease) (11) DIAB MANJIT WO COMPL, TYPE II OR UNSPEC TYPE, NOT UNCNTRLD (12) Diabetes (13) Elevated troponin (14) ESRD (end stage renal disease) on dialysis (15) Hypercholesterolemia (16) Hyperkalemia, diminished renal excretion (17) Hypertension (18) HYPERTENSION NOS (19) Hypoxemia (20) Kidney disease (21) Metabolic acidosis with normal anion gap and failure of bicarbonate regeneration (22) Obesity (23) Obstructive sleep apnea (24) Peripheral neuropathy (25) PNEUMONIA, ORGANISM NOS (26) Proteinuria (27) Pulmonary edema (28) Secondary hyperparathyroidism of renal origin (29) SOB (shortness of breath) (30) Vitamin D deficiency, unspecified (31) Volume overload Family History FH: HTN (hypertension) Social History Smoking Status: Never Smoker Drug Use: none Marital Status: Housing Status: lives with family Occupation Status: retired Current/Historical Medications Scheduled Aspirin (Aspirin Ec), 81 MG PO DAILY Carvedilol (Coreg), 25 MG PO BID Fluticasone Prop/Salmeterol (Advair Diskus 500/50 60 Dose), 1 PUFF INH BID Insulin Aspart (Novolog Flexpen), 10 UNITS SQ TIDM Insulin Glargine (Lantus Solostar), 15 UNITS SC BID Tiotropium [place] (Spiriva Handihaler), 1 CAP INH DAILY Scheduled PRN Hydrocodone/Acetaminophen 5MG/325MG ([place] 5MG/325MG), 1 TABLET PO Q4 PRN for Pain Physical Exam Vital Signs Date Time Temp Pulse Resp B/P (MAP) Pulse Ox O2 Delivery O2 Flow Rate FiO2 05/12/17 13:44 37.4 85 17 131/53 86 Room Air Physical Exam General: ambulatory with an ankle boot on right foot, not in acute distress Skin: no rashes noted, no suspicious lesions, no areas of inflammations/ lacerations/ erythema noted CVS: S1/ S2 noted, RRR, no rubs/ murmurs noted, no cyanosis RVS: not in acute respiratory distress, no wheezing/ rales/ crackles noted, decreased to bilat bases ENT: no erythema/ injection/ ulcerations noted in the pharynx, no lymphadenopathy Neck: inspection WNL, full ROM of neck ABD: BSx4, no pain/ tenderness on palpation, no organomegaly, MSK: on inspection of the right lower extremity there is swelling of the right ankle on the lateral aspect, swelling of the right pinky with surrounding erythema, the pinky is excoriated with a white base and no visible discharge, tender to touch, limited dorsiflexion and eversion/inversion of right ankle secondary to pain Lymph: No lymphadenopathy palpable Medical Decision & Procedures ER Provider Diagnostic Interpretation: [~ rep ct add3]] R FOOT MIN 3 VIEWS ROUTINE, R ANKLE 2 VIEWS HISTORY: 66 years-old Female right fifth toe infection, concern for osteomyelitis. COMPARISON: None available. TECHNIQUE: 3 views of the right foot and 3 views of the right ankle FINDINGS: FOOT: There is evidence of prior amputation of the third digit at the level of the proximal phalanx. Bones are mildly demineralized. Moderate degenerative changes are seen in the first MTP joint. There is moderate soft tissue swelling about the foot and fifth digit with suggested central erosions involving the fifth interphalangeal joint. The fifth phalanges are also sclerotic with cortical thickening noted involving the proximal phalanx both medially and laterally, possibly with periostitis. There is prominent spurring about the calcaneus. Vascular calcifications are noted. ANKLE: Moderate soft tissue swelling about the ankle and lower leg with vascular calcifications. No acute fracture or dislocation. There is moderate spurring about the calcaneus. IMPRESSION: 1. Probable periostitis of the fifth proximal phalanx with associated central articular erosions of the fifth interphalangeal joint are noted in conjunction with associated diffuse soft tissue swelling of the fifth digit, right foot and lower leg. These findings may reflect infectious arthropathy/osteomyelitis in the appropriate clinical setting. 2. Degenerative changes as above. 3. Peripheral vascular disease. 4. Prior amputation of the third digit at the level of the proximal phalanx. CHEST ONE VIEW PORTABLE HISTORY: 66 years-old Female hypoxia, h/o copd and pul edema acute hypoxia with pulmonary edema and COPD. COMPARISON: Chest radiograph 03/17/2017 TECHNIQUE: Portable upright AP view of the chest FINDINGS: Cardiac silhouette is again enlarged, unchanged. Pulmonary vascular congestion persists. There is improved aeration of the bilateral lungs with improvement of the previously seen pulmonary edema pattern. No pneumothorax. There is mild blunting of the costophrenic angles suggesting small effusions. Linear subsegmental opacities of the lung bases and lateral left midlung suggest atelectasis. Bones are grossly intact. IMPRESSION: 1. Cardiomegaly and pulmonary vascular congestion with improved aeration of the bilateral lungs. 2. Blunting of the costophrenic angles suggests trace effusions or atelectasis. Laboratory Results 05/12/17 14:50 Red Blood Count 2.92, Mean Corpuscular Volume 97.6, Mean Corpuscular Hemoglobin 31.5, Mean Corpuscular Hemoglobin Concent 32.3, Mean Platelet Volume 9.2, Neutrophils (%) (Auto) 73.0, Lymphocytes (%) (Auto) 13.8, Monocytes (%) (Auto) 10.8, Eosinophils (%) (Auto) 1.9, Basophils (%) (Auto) 0.1, Neutrophils # (Auto ) 5.34, Lymphocytes # (Auto) 1.01, Monocytes # (Auto) 0.79, Eosinophils # (Auto ) 0.14, Basophils # (Auto) 0.01 05/12/17 14:50 Test 05/12/17 14:50 White Blood Count 7.32 K/uL (4.8-10.8) Red Blood Count 2.92 M/uL (4.2-5.4) Hemoglobin 9.2 g/dL (12.0-16.0) Hematocrit 28.5 % (37-47) Mean Corpuscular Volume 97.6 fL (80-100) Mean Corpuscular Hemoglobin 31.5 pg (25-34) Mean Corpuscular Hemoglobin Concent 32.3 g/dl (32-36) Platelet Count 214 K/uL (130-400) Mean Platelet Volume 9.2 fL (7.4-10.4) Neutrophils (%) (Auto) 73.0 % Lymphocytes (%) (Auto) 13.8 % Monocytes (%) (Auto) 10.8 % Eosinophils (%) (Auto) 1.9 % Basophils (%) (Auto) 0.1 % Neutrophils # (Auto) 5.34 K/uL (1.4-6.5) Lymphocytes # (Auto) 1.01 K/uL (1.2-3.4) Monocytes # (Auto) 0.79 K/uL (0.11-0.59) Eosinophils # (Auto) 0.14 K/uL (0-0.5) Basophils # (Auto) 0.01 K/uL (0-0.2) RDW Standard Deviation 57.9 fL (36.4-46.3) RDW Coefficient of Variation 16.4 % (11.5-14.5) Immature Granulocyte % (Auto) 0.4 % Immature Granulocyte # (Auto) 0.03 K/uL (0.00-0.02) Erythrocyte Sedimentation Rate 38 mm/hr (0-21) Anion Gap 8.0 mmol/L (3-11) Est Creatinine Clear Calc Drug Dose 26.1 ml/min Estimated GFR () 27.3 Estimated GFR (Non- 23.6 BUN/Creatinine Ratio 7.2 (10-20) Lactic Acid Level 1.1 mmol/L (0.4-2.0) Calcium Level 8.4 mg/dl (8.5-10.1) Phosphorus Level 2.4 mg/dl (2.5-4.9) Magnesium Level 2.0 mg/dl (1.8-2.4) C-Reactive Protein 11.40 mg/dl (0-0.29) Beta-Hydroxybutyric Acid 1.05 mg/dL (0.2-2.81) ED Course 1415: Patient was seen and evaluated by the resident, appropriate w/u ordered 1530: Zosyn 2.25 mg and Vanco 1700mg IV x 1 administered 1600: Discussed case with hospitalist Dr Castro and patient will be evaluated Medical Decision Differential diagnosis includes infection, osteomyelitis, cellulitis, fracture, sprain and others were entertained Patient was evaluated in the ED for potential osteomyelitis as there was extensive excoriation and erythema on evaluation. Xray were reflective of these changes and considering that the patient is frequently in a health care setting she received coverage with both vanco and zosyn. ESR was elevated at 38 however no leukocytosis was noted on CBC. Patient has a BL anemia most likely secondary to chronic disease and is slightly below her BL of 9.5. Blood cultures were ordered. Discussed admission with the patient considering osteomyelitis and patient was agreeable to the admission. Patient was evaluated by hospitalist. Head Trauma GCS Score: 15 Blood Pressure Screening Patient's blood pressure: Elevated blood pressure Blood pressure disposition: Elevated BP felt to be situational Impression Primary Impression: Osteomyelitis Departure Information Dispostion Admitted as an inpatient Condition FAIR Referrals No Doctor, Assigned (PCP) Patient Instructions My [facility] Problem Qualifiers Primary Impression: Osteomyelitis Osteomyelitis type: acute hematogenous Osteomyelitis location: foot Laterality: right Qualified Codes: M86.071 - Acute hematogenous osteomyelitis , right ankle and foot
[2017-05-12 15:15] LABS: BASO % 0.1 %; BASO ABS # 0.01 K/uL (0-0.2); COMPLETE YES; EOS % 1.9 %; HEMATOCRIT 28.5 % (37-47); IG% 0.4 %; LYMPH % 13.8 %; LYMPH ABS # 1.01 K/uL (1.2-3.4); MEAN CELL VOLUME 97.6 fL (80-100); MEAN CORPUSCULAR HEMOGLOBIN 31.5 pg (25-34); MEAN CORPUSCULAR HGB CONC 32.3 g/dl (32-36); MEAN PLATELET VOLUME 9.2 fL (7.4-10.4); MONO % 10.8 %; PLATELET COUNT 214 K/uL (130-400); RED BLOOD COUNT 2.92 M/uL (4.2-5.4); WHITE BLOOD COUNT 7.32 K/uL (4.8-10.8)
[2017-05-12 15:33] LABS: BUN/CREATININE RATIO 7.2 (10-20); C-REACTIVE PROTEIN 11.4 mg/dl (0-0.29); CALCIUM 8.4 mg/dl (8.5-10.1); CREATININE 2.1 mg/dl (0.60-1.20); PHOSPHORUS 2.4 mg/dl (2.5-4.9); POTASSIUM 3.1 mmol/L (3.5-5.1)
[2017-05-12 15:42] LABS: BETA-HYDROXYBUTYRATE 1.05 mg/dL (0.2-2.81)
--- NOTE | 2017-05-12 15:48 | DIAGNOSTIC IMAGING REPORT ---
CHEST ONE VIEW PORTABLE HISTORY: 66 years-old Female hypoxia, h/o copd and pul edema acute hypoxia with pulmonary edema and COPD. COMPARISON: Chest radiograph 03/17/2017 TECHNIQUE: Portable upright AP view of the chest FINDINGS: Cardiac silhouette is again enlarged, unchanged. Pulmonary vascular congestion persists. There is improved aeration of the bilateral lungs with improvement of the previously seen pulmonary edema pattern. No pneumothorax. There is mild blunting of the costophrenic angles suggesting small effusions. Linear subsegmental opacities of the lung bases and lateral left midlung suggest atelectasis. Bones are grossly intact. IMPRESSION: 1. Cardiomegaly and pulmonary vascular congestion with improved aeration of the bilateral lungs. 2. Blunting of the costophrenic angles suggests trace effusions or atelectasis. The above report was generated using voice recognition software. It may contain grammatical, syntax or spelling errors. Electronically signed by: Solo Roberts M.D. 05/12/2017 3:46 PM Dictated Date/Time: 05/12/2017 3:45 PM
[2017-05-12] MEDS ORDERED: VANCOMYCIN INJ 1,700 MG in SODIUM CHLORIDE 0.9% 250ML 250 ML IV STA (15:52)
[2017-05-12] MEDS ORDERED: VANCOMYCIN INJ 1,700 MG in SODIUM CHLORIDE 0.9% 500ML 500 ML IV STA (15:52)
--- NOTE | 2017-05-12 15:55 | DIAGNOSTIC IMAGING REPORT ---
R FOOT MIN 3 VIEWS ROUTINE, R ANKLE 2 VIEWS HISTORY: 66 years-old Female right fifth toe infection, concern for osteomyelitis. COMPARISON: None available. TECHNIQUE: 3 views of the right foot and 3 views of the right ankle FINDINGS: FOOT: There is evidence of prior amputation of the third digit at the level of the proximal phalanx. Bones are mildly demineralized. Moderate degenerative changes are seen in the first MTP joint. There is moderate soft tissue swelling about the foot and fifth digit with suggested central erosions involving the fifth interphalangeal joint. The fifth phalanges are also sclerotic with cortical thickening noted involving the proximal phalanx both medially and laterally, possibly with periostitis. There is prominent spurring about the calcaneus. Vascular calcifications are noted. ANKLE: Moderate soft tissue swelling about the ankle and lower leg with vascular calcifications. No acute fracture or dislocation. There is moderate spurring about the calcaneus. IMPRESSION: 1. Probable periostitis of the fifth proximal phalanx with associated central articular erosions of the fifth interphalangeal joint are noted in conjunction with associated diffuse soft tissue swelling of the fifth digit, right foot and lower leg. These findings may reflect infectious arthropathy/osteomyelitis in the appropriate clinical setting. 2. Degenerative changes as above. 3. Peripheral vascular disease. 4. Prior amputation of the third digit at the level of the proximal phalanx. The above report was generated using voice recognition software. It may contain grammatical, syntax or spelling errors. Electronically signed by: Solo Roberts M.D. 05/12/2017 3:54 PM Dictated Date/Time: 05/12/2017 3:49 PM
[2017-05-12] MEDS ORDERED: PIPERACILL/TAZOBAC IV 2.25 GM in DEXTROSE 5% 100ML 100 ML IV SCH (16:00)
[2017-05-12] MEDS ORDERED: ALUMINUM/MAGNESIUM/SIMETH (MAALOX MAX) 30 ML UDC PO PRN (18:00)
[2017-05-12] MEDS ORDERED: GLUCOSE 10 TABS/TUBE PO PRN (18:00)
[2017-05-12] MEDS ORDERED: ACETAMINOPHEN 325 MG TAB PO PRN (18:00)
[2017-05-12] MEDS ORDERED: GLUCAGON FOR INJ 1 MG VIAL SQ PRN (18:00)
[2017-05-12] MEDS ORDERED: GLUCOSE 40% GEL 15 GM TUBE PO PRN (18:00)
[2017-05-12] MEDS ORDERED: DEXTROSE 50% 50 ML SYR IV PRN (18:00)
[2017-05-12] MEDS ORDERED: POLYETHYLENE (MIRALAX) 17 GM PACK PO PRN (18:00)
[2017-05-12] MEDS ORDERED: MAGNESIUM HYDROXIDE SUSP 30 ML UDC PO PRN (18:00)
[2017-05-12] MEDS ORDERED: ALBUT/IPRATROP 3MG/0.5MG NEB 3 ML VIAL INH PRN (18:00)
--- NOTE | 2017-05-12 18:03 | History and Physical ---
History & Physical Date & Time of Service: May 12, 2017 at 17:59 Chief Complaint: Right Foot Needs Checked Primary Care Physician: Karla Todd M.D. History of Present Illness Source: patient Ms. Santiago is a 66 y/o female with PMHx of ESRD (T, Th, Sat), COPD, Diastolic CHF , and T2DM who presents for a R 5th toe infection x 1 week. Approximately one week ago she woke up with pain in her R ankle and foot. She presented to [facility] and was evaluated and told she had a fracture on XR and was placed in a cast. Over the past couple days she noted increased pain in her R 5th toe. She presented to that facility today for cast removal and noted a wound on the R 5th toe and was referred to the ED. Reports pain more in the ankle but does have mild aching pain in the toe. She reports overall feeling well but did note a 101 F fever at dialysis today but resolved. She had a previous amputation of the R 3rd toe due to osteomyelitis in the past. Past Medical/Surgical History 1. ESRD 2. COPD 3. Diastolic CHF 4. T2DM 5. S/P R 3rd Toe Amputation Family History FH: HTN (hypertension) Social History Smoking Status: Never Smoker Smokeless Tobacco Use: No Alcohol Use: none Drug Use: none Marital Status: Housing status: lives with family Occupational Status: retired Immunizations History of Influenza Vaccine: Yes Influenza Vaccine Date: Jul 08, 2011 History of Tetanus Vaccine?: No History of Pneumococcal: No Pneumococcal Date: Mar 07, 2010 History of Hepatitis B Vaccine: No Multi-Drug Resistant Organisms History of MDRO: Yes Type of MDRO: MRSA Allergies Coded Allergies: Hydralazine (Verified Allergy, Intermediate, rash, 05/12/17) Isosorbide Nitrate (Verified Allergy, Unknown, ITCHING, 05/12/17) EZE Inhibitors (Verified Adverse Reaction, Unknown, DUE TO CKD, 05/12/17) Home Medications Scheduled Aspirin (Aspirin Ec), 81 MG PO DAILY Carvedilol (Coreg), 25 MG PO BID Insulin Aspart (Novolog Flexpen), 10 UNITS SQ TIDM Insulin Glargine (Lantus Solostar), 15 UNITS SC BID Mometasone Furoate-Formoterol (Dulera 200/5 Mcg), 2 PUFFS INH BID Tiotropium [place] (Spiriva Handihaler), 1 CAP INH DAILY Scheduled PRN Hydrocodone/Acetaminophen 5MG/325MG ([place] 5MG/325MG), 1 TABLET PO Q4 PRN for Pain Review of Systems Constitutional: + fever (101), No chills ENT: No nasal symptoms, No sore throat Respiratory: No cough, No wheezing, No shortness of breath Cardiovascular: No chest pain, No palpitations Abdomen: No pain, No nausea, No vomiting, No diarrhea, No constipation, No GI bleeding Musculoskeletal: + joint pain (R ankle), No calf pain Genitourinary - Female: + problem reported (decreased urine output in setting of ESRD), No dysuria Hematologic / Lymphatic: No abnormal bleeding/bruising, No clotting problems Integumentary: + problem reported (R 5th toe wound ) Physical Exam Vital Signs Date Time Temp Pulse Resp B/P (MAP) Pulse Ox O2 Delivery O2 Flow Rate FiO2 05/12/17 17:00 88 18 182/91 92 Room Air 05/12/17 13:44 37.4 85 17 131/53 86 Room Air General Appearance: WD/WN, no apparent distress Head: normocephalic, atraumatic Eyes: sclerae normal ENT: hearing grossly normal Neck: supple, no JVD, trachea midline Respiratory/Chest: lungs clear, normal breath sounds, no respiratory distress, no accessory muscle use Cardiovascular: regular rate, rhythm, no gallop, no murmur Abdomen/GI: normal bowel sounds, non tender, soft Extremities/Musculoskelatal: + pertinent finding (swelling of R foot and ankle ; open wound on R 5th toe without active bleeding or bone exposure; cap refill immediate; pulses adequate) Neurologic/Psych: alert, oriented x 3 Skin: normal color, warm/dry Diagnostics Laboratory Results Results Past 24 Hours Test 05/12/17 14:50 Range/Units White Blood Count 7.32 4.8-10.8 K/uL Red Blood Count 2.92 4.2-5.4 M/uL Hemoglobin 9.2 12.0-16.0 g/dL Hematocrit 28.5 37-47 % Mean Corpuscular Volume 97.6 80-100 fL Mean Corpuscular Hemoglobin 31.5 25-34 pg Mean Corpuscular Hemoglobin Concent 32.3 32-36 g/dl Platelet Count 214 130-400 K/uL Mean Platelet Volume 9.2 7.4-10.4 fL Neutrophils (%) (Auto) 73.0 % Lymphocytes (%) (Auto) 13.8 % Monocytes (%) (Auto) 10.8 % Eosinophils (%) (Auto) 1.9 % Basophils (%) (Auto) 0.1 % Neutrophils # (Auto) 5.34 1.4-6.5 K/uL Lymphocytes # (Auto) 1.01 1.2-3.4 K/uL Monocytes # (Auto) 0.79 0.11-0.59 K/uL Eosinophils # (Auto) 0.14 0-0.5 K/uL Basophils # (Auto) 0.01 0-0.2 K/uL RDW Standard Deviation 57.9 36.4-46.3 fL RDW Coefficient of Variation 16.4 11.5-14.5 % Immature Granulocyte % (Auto) 0.4 % Immature Granulocyte # (Auto) 0.03 0.00-0.02 K/uL Erythrocyte Sedimentation Rate 38 0-21 mm/hr Sodium Level 134 136-145 mmol/L Potassium Level 3.1 3.5-5.1 mmol/L Chloride Level 94 98-107 mmol/L Carbon Dioxide Level 32 21-32 mmol/L Anion Gap 8.0 3-11 mmol/L Blood Urea Nitrogen 15 7-18 mg/dl Creatinine 2.10 0.60-1.20 mg/dl Est Creatinine Clear Calc Drug Dose 26.1 ml/min Estimated GFR () 27.3 Estimated GFR (Non- 23.6 BUN/Creatinine Ratio 7.2 10-20 Random Glucose 332 70-99 mg/dl Lactic Acid Level 1.1 0.4-2.0 mmol/L Calcium Level 8.4 8.5-10.1 mg/dl Phosphorus Level 2.4 2.5-4.9 mg/dl Magnesium Level 2.0 1.8-2.4 mg/dl Total Bilirubin 0.6 0.2-1 mg/dl Direct Bilirubin 0.2 0-0.2 mg/dl Aspartate Amino Transf (AST/SGOT) 31 15-37 U/L Alanine Aminotransferase (ALT/SGPT) 32 12-78 U/L Alkaline Phosphatase 191 45-117 U/L C-Reactive Protein 11.40 0-0.29 mg/dl Total Protein 7.3 6.4-8.2 gm/dl Albumin 3.0 3.4-5.0 gm/dl Beta-Hydroxybutyric Acid 1.05 0.2-2.81 mg/dL Microbiology Results 05/12/17 Blood Culture, Received Pending 05/12/17 Blood Culture, Received Pending Diagnostic Radiology CHEST ONE VIEW PORTABLE FINDINGS: Cardiac silhouette is again enlarged, unchanged. Pulmonary vascular congestion persists. There is improved aeration of the bilateral lungs with improvement of the previously seen pulmonary edema pattern. No pneumothorax. There is mild blunting of the costophrenic angles suggesting small effusions. Linear subsegmental opacities of the lung bases and lateral left midlung suggest atelectasis. Bones are grossly intact. IMPRESSION: 1. Cardiomegaly and pulmonary vascular congestion with improved aeration of the bilateral lungs. 2. Blunting of the costophrenic angles suggests trace effusions or atelectasis. R FOOT MIN 3 VIEWS ROUTINE, R ANKLE 2 VIEWS FINDINGS: FOOT: There is evidence of prior amputation of the third digit at the level of the proximal phalanx. Bones are mildly demineralized. Moderate degenerative changes are seen in the first MTP joint. There is moderate soft tissue swelling about the foot and fifth digit with suggested central erosions involving the fifth interphalangeal joint. The fifth phalanges are also sclerotic with cortical thickening noted involving the proximal phalanx both medially and laterally, possibly with periostitis. There is prominent spurring about the calcaneus. Vascular calcifications are noted. ANKLE: Moderate soft tissue swelling about the ankle and lower leg with vascular calcifications. No acute fracture or dislocation. There is moderate spurring about the calcaneus. IMPRESSION: 1. Probable periostitis of the fifth proximal phalanx with associated central articular erosions of the fifth interphalangeal joint are noted in conjunction with associated diffuse soft tissue swelling of the fifth digit, right foot and lower leg. These findings may reflect infectious arthropathy/osteomyelitis in the appropriate clinical setting. 2. Degenerative changes as above. 3. Peripheral vascular disease. 4. Prior amputation of the third digit at the level of the proximal phalanx. Impression Assessment and Plan Ms. Santiago is a 66 y/o female with PMHx of ESRD (T, Th, Sat), HTN, COPD, Diastolic CHF, and T2DM who presents for a R 5th toe infection x 1 week. R 5th Toe Osteomyelitis: - Zosyn and Vancomycin with renal dosing - ASA currently on hold pending further evaluation and possible intervention - Obtain wound Cx - however already received ABx - Art U/S - evaluated vasculature/healing potential - Consult Orthopedics and ID - has H/O previous Osteo requiring amputation -- Reporting foot fx but no note of one on imaging from ED - Consult wound care ESRD (T, Th, Sat): - Dialysis on 05/12 - continue to monitor with daily BMP - Consult nephrology - appreciate assistance with dialysis T2DM with Hyperglycemia: UNCONTROLLED: - A1c 9.5 (March) - Lantus 15 units BID and SSI HTN: - Coreg 25 mg BID COPD without Exacerbation: - Dulera 2 puffs BID (non-formulary and will need to bring in) and Spiriva daily - Duonebs PRN Chronic Diastolic CHF: - Previous echocardiogram reviewed without mention of diastolic dysfunction - states she had a H/O fluid retention but this was due to missing dialysis - appears euvolemic DVT Prophylaxis: SCDs Code Status: FULL RESUSCITATION Disposition: - May possibly need D/C with IV Abx - consult psychosocial rehabilitation counselor Attending Addendum: I have physically seen and examined this patient, have directed the physician assistants medical activities, and agree with the H&P as noted above with the following exceptions as noted. The patient is awake, alert and oriented 3, obese, normocephalic and atraumatic, lying in bed and in no acute distress. HEENT--PERRL, EOMI, mucous membranes and oropharynx dry. Neck--supple, no JVD or bruits, thyroid normal, trachea midline, no adenopathy. Heart--normal S1 and S2, no extra beats, no murmurs, rubs or gallops. Lungs--clear bilaterally with good air movement, no respiratory distress, no accessory muscle use. Abdomen--normal bowel sounds and soft, nontender and nondistended, no hernias or masses, no organomegaly. Extremities--right fifth MTP with large concave lesion, with surrounding erythema and warmth extending along the dorsum involving over to the third MCP and digits. Dermatologic--normal skin turgor, normal color, warm and dry, no abnormal lymph nodes, no rash. Neurologic--cranial nerves II through XII grossly intact. Rheumatologic--limited range of motion due to body habitus. Right third toe amputation. Psychiatric--normal affect. Assessment and Plan: Right fifth toe osteomyelitis/foot cellulitis/ankle fracture-- Vancomycin IV per renal dosing, and Zosyn IV. Hold aspirin. Lower extremity arterial Dopplers to assess for PAD. Consult infectious disease Consult orthopedics Consult wound care Three-phase bone scan in the a.m. End-stage renal disease on HD Thursday, and Thursday-- Consult nephrology. Diabetes mellitus uncontrolled with elevated blood sugar-- Lantus 15 units subcutaneous twice a day. Accu-Cheks before meals and at bedtime with NovoLog coverage per scale. Hypertension/chronic diastolic CHF-- Continue Coreg 25 mg by mouth twice a day. COPD-- Continue Dulera 2 puffs twice a day and Spiriva daily. DuoNeb every 4 hours when necessary. Level of Care Med/Surg Advanced Directives Existing Advance Directive: No Existing Living Will: No Existing Power of Fire Alarm Operator: No Resuscitation Status FULL RESUSCITATION VTE Prophylaxis VTE Risk Assessment Done? Y/N: Yes Risk Level: Moderate Given or contraindicated: SCD's Social Service Consult None Apply
[2017-05-12 19:20] VITALS: BP 162/76; PULSE 90; TEMP 37; O2SAT 92
[2017-05-12 19:30] VITALS: Ht 157.5 cm; Wt 92.6 kg
[2017-05-12] MEDS ORDERED: MOME200A INH (19:59)
[2017-05-12] MEDS ORDERED: NON-FORMULARY MEDICATION SCH (20:00)
[2017-05-12] MEDS ORDERED: VANCOMYCIN CONSULT ACTIVE PRN (20:00)
[2017-05-12] MEDS ORDERED: PIPERACILL/TAZOBAC CONSULT ACTIVE PRN (20:00)
--- NOTE | 2017-05-12 20:10 | Pharmacy Progress Note ---
Pharmacy Antibiotic Consult Date of Service: May 12, 2017. Pharmacy Dosing Scope Pharmacy is consulted to initiate IV Vancomycin and IV Zosyn dosing therapy, order appropriate labs and adjust drug dose/frequency. Subjective The patient is a 66 year old female admitted on May 12, 2017 at 17:55 with osteomyelitis Objective Height (Feet): 5 Height (Inches): 2.00 Weight (Kilograms): 86.000 Lab Results (24hrs): Test 05/12/17 14:50 White Blood Count 7.32 K/uL (4.8-10.8) Red Blood Count 2.92 M/uL (4.2-5.4) Hemoglobin 9.2 g/dL (12.0-16.0) Hematocrit 28.5 % (37-47) Mean Corpuscular Volume 97.6 fL (80-100) Mean Corpuscular Hemoglobin 31.5 pg (25-34) Mean Corpuscular Hemoglobin Concent 32.3 g/dl (32-36) Platelet Count 214 K/uL (130-400) Mean Platelet Volume 9.2 fL (7.4-10.4) Neutrophils (%) (Auto) 73.0 % Lymphocytes (%) (Auto) 13.8 % Monocytes (%) (Auto) 10.8 % Eosinophils (%) (Auto) 1.9 % Basophils (%) (Auto) 0.1 % Neutrophils # (Auto) 5.34 K/uL (1.4-6.5) Lymphocytes # (Auto) 1.01 K/uL (1.2-3.4) Monocytes # (Auto) 0.79 K/uL (0.11-0.59) Eosinophils # (Auto) 0.14 K/uL (0-0.5) Basophils # (Auto) 0.01 K/uL (0-0.2) RDW Standard Deviation 57.9 fL (36.4-46.3) RDW Coefficient of Variation 16.4 % (11.5-14.5) Immature Granulocyte % (Auto) 0.4 % Immature Granulocyte # (Auto) 0.03 K/uL (0.00-0.02) Erythrocyte Sedimentation Rate 38 mm/hr (0-21) Sodium Level 134 mmol/L (136-145) Potassium Level 3.1 mmol/L (3.5-5.1) Chloride Level 94 mmol/L (98-107) Carbon Dioxide Level 32 mmol/L (21-32) Anion Gap 8.0 mmol/L (3-11) Blood Urea Nitrogen 15 mg/dl (7-18) Creatinine 2.10 mg/dl (0.60-1.20) Est Creatinine Clear Calc Drug Dose 26.1 ml/min Estimated GFR () 27.3 Estimated GFR (Non- 23.6 BUN/Creatinine Ratio 7.2 (10-20) Random Glucose 332 mg/dl (70-99) Lactic Acid Level 1.1 mmol/L (0.4-2.0) Calcium Level 8.4 mg/dl (8.5-10.1) Phosphorus Level 2.4 mg/dl (2.5-4.9) Magnesium Level 2.0 mg/dl (1.8-2.4) Total Bilirubin 0.6 mg/dl (0.2-1) Direct Bilirubin 0.2 mg/dl (0-0.2) Aspartate Amino Transf (AST/SGOT) 31 U/L (15-37) Alanine Aminotransferase (ALT/SGPT) 32 U/L (12-78) Alkaline Phosphatase 191 U/L (45-117) C-Reactive Protein 11.40 mg/dl (0-0.29) Total Protein 7.3 gm/dl (6.4-8.2) Albumin 3.0 gm/dl (3.4-5.0) Beta-Hydroxybutyric Acid 1.05 mg/dL (0.2-2.81) Micro Results: Item Value Date Time Blood Culture Received 05/12/17 1544 Blood Pending Blood Culture Received 05/12/17 1540 Blood Pending Recent Pertinent Medications Item Value Date Time Piperacillin Sod/ 110 ml @ 200 mls/hr 05/12/17 1600 Tazobactam Sod NOW/IV 05/12/17 1735 2.25 gm/Dextrose Vancomycin HCl 534 ml @ 200 mls/hr 05/12/17 1552 1700 mg/Sodium NOW STAT/IV 05/12/17 1700 Chloride Assessment & Plan [age] yo female hemodialysis patient admitted with foot osteomyelitis empirically starting IV Vancomycin and IV Zosyn. Blood cultures are pending. Loading dose: Vancomycin 1700 mg (~20 mg/kg) IV X 1 dose then: Vancomycin ongoing dosing by serial Vancomycin levels. Goal peak level estimate: between 25 - 40 mcg/mL. Will redose IV Vancomycin when levels reach 15 - 20 mcg/mL. Vancomycin random level has been ordered for: 05/13/17 with AM labs. Zosyn 3.375 gm IV every 12 hours by extended infusion for patients with Creatinine Clearance less than 20 mL/min or HD Pharmacy will continue to follow and will adjust dose/frequency as necessary. Thank you
[2017-05-12] MEDS: CARVEDILOL 25 MG TAB PO SCH (20:52)
[2017-05-12] MEDS ORDERED: VANCOMYCIN INJ 1,000 MG in SODIUM CHLORIDE 0.9% 250ML 250 ML IV SCH (21:00)
[2017-05-12] MEDS: INSULIN GLARGINE SOLOSTAR 100 UNITS/ML 3 ML PEN SC SCH (21:01)
[2017-05-12] MEDS: INSULIN ASPART 100 UNITS/ML 3 ML PEN SC SCH (21:01)
--- NOTE | 2017-05-12 22:57 | DIAGNOSTIC IMAGING REPORT ---
R ART DOP DUPLEX LWR EXT UNI CLINICAL HISTORY: 66 years-old Female presenting with R Wound/Osteo. TECHNIQUE: Real-time grayscale and color and spectral Doppler ultrasound imaging of the bilateral lower extremity arteries was performed. Measurements calculated based on NASCET criteria. COMPARISON: None. FINDINGS: Right: Common femoral artery: Patent. Peak systolic velocity 146 cm/s. Superficial femoral artery: Patent. Peak systolic velocity 197 cm/s. Popliteal artery: Patent. Peak systolic velocity 178 cm/s. Anterior tibial artery: Patent, although with a blunted systolic upstroke. Peak systolic velocity 214 cm/s. Posterior tibial artery: Patent. Peak systolic velocity 137 cm/s. Dorsalis pedis: Patent, although with a blunted systolic upstroke. The artery was noncompressible suggesting dense atherosclerotic calcification. Peak systolic velocity 369 cm/s. Peroneal artery: Patent. Peak systolic velocity 163 cm/s. JOAO Brachial: Right: 134 mmHg, Left: Not obtained due to limb restriction. Ankle (Posterior tibial): Right: 131 mmHg, Left: 142 mmHg. Ankle (Dorsalis pedis): Right: 148 mmHg, Left: Not obtained. Ankle/Brachial Index: Right: 0.98-1.1, Left: No brachial pressure obtained Reference ranges: Normal JOAO 1.0-1.4; 0.9-0.99 borderline; less than 0.9 abnormal. IMPRESSION: 1. Atherosclerosis with elevated velocity in the dorsalis pedis suggesting hemodynamically significant atherosclerotic narrowing. 2. However, normal right ankle-brachial indices. Electronically signed by: Jim Redmond M.D. 05/12/2017 10:56 PM Dictated Date/Time: 05/12/2017 10:50 PM
[2017-05-12 23:03] VITALS: BP 133/66; PULSE 72; TEMP 37; O2SAT 95
[2017-05-13] MEDS: PIPERACILL/TAZOBAC IV 3.375 GM in DEXTROSE 5% 100ML 100 ML IV SCH ×3 (00:38→23:21)
[2017-05-13] MEDS: HYDROCODONE/ACETAMOPHEN 5/325MG TAB PO PRN ×3 (00:43→20:11)
--- NOTE | 2017-05-13 03:27 | EMERGENCY ROOM VISIT NOTE ---
ED Visit Note First contact with patient: 14:08 HPI: PMHX of DM and ESRD where with right 5th phalanx ulcer and erythema. PE: AFVSS, NAD NC/AT RRR, no murmurs CTAB Abd soft NT/ND Ext: right foot with 1+ edema, +erythema/warmth dorsum of right foot with right 5th phalanx dorsal ulcer with erythema. No crepitus. Neuro: grossly intact Plan: WBC wnl. Xray + for osteo. Bld cx. Vanc/zosyn. Admit. I reviewed the patient's past medical history, medications, and visit nursing notes. I discussed the case with the resident physician, examined the patient, and agree with the findings and plan as documented in the residents note unless otherwise clarified here by me.
[2017-05-13 07:25] VITALS: BP 152/74; PULSE 70; TEMP 36.6; O2SAT 95
[2017-05-13 07:56] LABS: HEMATOCRIT 28.5 % (37-47); MEAN CELL VOLUME 97.9 fL (80-100); MEAN CORPUSCULAR HEMOGLOBIN 30.6 pg (25-34); MEAN CORPUSCULAR HGB CONC 31.2 g/dl (32-36); MEAN PLATELET VOLUME 9.5 fL (7.4-10.4); PLATELET COUNT 205 K/uL (130-400); RED BLOOD COUNT 2.91 M/uL (4.2-5.4); WHITE BLOOD COUNT 5.66 K/uL (4.8-10.8)
[2017-05-13 08:31] LABS: BUN/CREATININE RATIO 8.2 (10-20); CALCIUM 8.5 mg/dl (8.5-10.1); CREATININE 2.9 mg/dl (0.60-1.20); POTASSIUM 3.6 mmol/L (3.5-5.1)
--- NOTE | 2017-05-13 08:54 | Pharmacy Progress Note ---
Pharmacy Abx Dose Short Note Date of Service May 13, 2017. Assessment & Plan Assessment 66 year old female receiving vancomycin/Zosyn for treatment of osteomyelitis of right toe with h/o MRSA on right foot (from 2011) Day # 2 of antimicrobial therapy. Plan Vancomycin * Random level of 21.0 mcg/mL is supratherapeutic. * No vancomycin today- scheduled [facility] for dialysis (last session 05/12/17) * Goal trough level for osteomyelitis : 15 to 20 mcg/mL * Random level ordered for: 05/13/17 Pharmacy will continue to follow and will adjust dose/frequency as necessary. Thank you.
--- NOTE | 2017-05-13 09:29 | Progress Note ---
Subjective Date of Service: May 13, 2017. Subjective Pt evaluation today including: conversation w/ patient, physical exam, chart review, lab review, review of studies, conversation w/ client relationship consultant, review of inpatient medication list Doing okay, no fever and chill, right broken ankle, no obvious pain, right fifth toe infection local in dressing, eating good, no nausea vomiting, no diarrhea constipation, no dysuria urgency and frequency Problem List Medical Problems: (1) Bronchitis Status: Acute (2) CHF (congestive heart failure) Status: Acute (3) CHF exacerbation Status: Acute (4) COPD exacerbation Status: Acute (5) COPD exacerbation Status: Acute (6) End stage renal disease Status: Acute (7) Hyperkalemia Status: Acute (8) Hypoxia Status: Acute (9) Hypoxia Status: Acute (10) Hypoxia Status: Acute (11) Osteomyelitis Status: Acute (12) Pulmonary edema Status: Acute (13) Renal failure Status: Acute Review of Systems Constitutional: No fever, No chills, No sweats, No weight loss, No weakness, No fatigue, No problem reported Eyes: No worsening of vision, No eye pain, No redness, No discharge, No diplopia ENT: No hearing loss, No unusual epistaxis, No nasal symptoms, No sore throat, No tinnitus, No dental problems, No trouble swallowing Respiratory: No cough, No sputum, No wheezing, No shortness of breath, No dyspnea on exertion, No dyspnea at rest, No hemoptysis Cardiac: No chest pain, No orthopnea, No PND, No edema, No claudication, No palpitations Abdomen: No pain, No nausea, No vomiting, No diarrhea, No constipation Musculoskeletal: + see HPI, No joint pain, No muscle pain, No swelling, No calf pain Female : No dysuria, No urinary frequency, No hematuria, No incontinence, No abnormal vaginal bleeding, No vaginal discharge Neurologic: No memory loss, No paralysis, No weakness, No numbness/tingling, No vertigo, No balance problems Psychiatric: No depression symptoms, No anhedonism, No anxiety, No insomnia, No substance abuse Heme: No abnormal bleeding/bruising, No clotting problems, No swollen lymph nodes, No night sweats Endo: No fatigue, No excessive thirst, No excessive urination Skin: + see HPI, + itch, No bleeding Objective Vital Signs Date Time Temp Pulse Resp B/P (MAP) Pulse Ox O2 Delivery O2 Flow Rate FiO2 05/13/17 07:25 36.6 70 16 152/74 (100) 95 Nasal Cannula 2.0 05/13/17 00:30 Room Air 05/12/17 23:03 37.0 72 16 133/66 (88) 95 Nasal Cannula 2.0 05/12/17 19:30 Nasal Cannula 2.0 05/12/17 19:20 37.0 90 18 162/76 (104) 92 Nasal Cannula 2.0 05/12/17 19:13 85 18 147/77 95 05/12/17 19:09 85 18 147/77 95 Nasal Cannula 2.0 05/12/17 17:00 88 18 182/91 92 Room Air 05/12/17 13:44 37.4 85 17 131/53 86 Room Air Physical Exam General Appearance: WD/WN, no apparent distress, + obese Eyes: normal inspection, PERRL, EOMI, sclerae normal ENT: normal ENT inspection, hearing grossly normal, pharynx normal Neck: supple, no adenopathy, thyroid normal, no JVD, no carotid bruits, trachea midline Respiratory/Chest: chest non-tender, lungs clear, normal breath sounds, no respiratory distress, no accessory muscle use Cardiovascular: regular rate, rhythm, no edema, no gallop, no JVD, no murmur Abdomen: normal bowel sounds, non tender, soft, no organomegaly, no pulsatile mass Extremities: normal inspection, no pedal edema, no calf tenderness, normal capillary refill, pelvis stable, + pertinent finding (right toe in dress, no obvious tender, right ankle mild bluish and swelling, no obvious deformity) Neurologic/Psychiatric: dock grader II-XII nml as tested, no motor/sensory deficits, alert, normal mood/affect, oriented x 3 Skin: normal color, warm/dry, no rash Lymphatic: no adenopathy Laboratory Results Last 24 Hours Test 05/12/17 14:50 05/12/17 20:30 05/13/17 07:14 05/13/17 08:01 White Blood Count 7.32 K/uL 5.66 K/uL Red Blood Count 2.92 M/uL 2.91 M/uL Hemoglobin 9.2 g/dL 8.9 g/dL Hematocrit 28.5 % 28.5 % Mean Corpuscular Volume 97.6 fL 97.9 fL Mean Corpuscular Hemoglobin 31.5 pg 30.6 pg Mean Corpuscular Hemoglobin Concent 32.3 g/dl 31.2 g/dl Platelet Count 214 K/uL 205 K/uL Mean Platelet Volume 9.2 fL 9.5 fL Neutrophils (%) (Auto) 73.0 % Lymphocytes (%) (Auto) 13.8 % Monocytes (%) (Auto) 10.8 % Eosinophils (%) (Auto) 1.9 % Basophils (%) (Auto) 0.1 % Neutrophils # (Auto) 5.34 K/uL Lymphocytes # (Auto) 1.01 K/uL Monocytes # (Auto) 0.79 K/uL Eosinophils # (Auto) 0.14 K/uL Basophils # (Auto) 0.01 K/uL RDW Standard Deviation 57.9 fL 59.3 fL RDW Coefficient of Variation 16.4 % 16.6 % Immature Granulocyte % (Auto) 0.4 % Immature Granulocyte # (Auto) 0.03 K/uL Erythrocyte Sedimentation Rate 38 mm/hr Sodium Level 134 mmol/L 135 mmol/L Potassium Level 3.1 mmol/L 3.6 mmol/L Chloride Level 94 mmol/L 94 mmol/L Carbon Dioxide Level 32 mmol/L 33 mmol/L Anion Gap 8.0 mmol/L 8.0 mmol/L Blood Urea Nitrogen 15 mg/dl 24 mg/dl Creatinine 2.10 mg/dl 2.90 mg/dl Est Creatinine Clear Calc Drug Dose 26.1 ml/min 18.9 ml/min Estimated GFR () 27.3 18.5 Estimated GFR (Non- 23.6 16.0 BUN/Creatinine Ratio 7.2 8.2 Random Glucose 332 mg/dl 176 mg/dl Lactic Acid Level 1.1 mmol/L Calcium Level 8.4 mg/dl 8.5 mg/dl Phosphorus Level 2.4 mg/dl Magnesium Level 2.0 mg/dl Total Bilirubin 0.6 mg/dl Direct Bilirubin 0.2 mg/dl Aspartate Amino Transf (AST/SGOT) 31 U/L Alanine Aminotransferase (ALT/SGPT) 32 U/L Alkaline Phosphatase 191 U/L C-Reactive Protein 11.40 mg/dl Total Protein 7.3 gm/dl Albumin 3.0 gm/dl Beta-Hydroxybutyric Acid 1.05 mg/dL Bedside Glucose 273 mg/dl 165 mg/dl Random Vancomycin Level 21.0 mcg/ml Assessment and Plan 66 y/o female admitted on 05/12/2017 because of a R 5th toe infection x 1 week PMHx of ESRD (, , Sat), HTN, COPD, Diastolic CHF, and T2DM R 5th Toe Osteomyelitis: Continue Zosyn and Vancomycin with renal dosing Okay to have ASA on hold pending further evaluation and possible intervention Follow-up wound Cx - however already received ABx Follow-up Art U/S - evaluated vasculature/healing potential Orthopedics and ID input appreciated ESRD (, , Sat): Dialysis on 05/12 - continue to monitor with daily BMP, renal consult and continue dialysis T2DM with Hyperglycemia: UNCONTROLLED: A1c 9.5 (March), continue Lantus 15 units BID and SSI HTN: COPD without Exacerbation: Chronic Diastolic CHF: The above condition is stable DVT Prophylaxis: SCDs Code Status: FULL RESUSCITATION Continued [facility] stay due to: multiple IV medications needed Discharge planning: uncertain
--- NOTE | 2017-05-13 10:21 | Progress Note ---
Progress Note Date of Service May 13, 2017. Progress Note ID Consult Dictated #[id number] A/P: 1. Diabetic foot ulcer, right 5th toe -Continue abx for now, follow wound and blood culture -local wound care -will follow, thank you
[2017-05-13] MEDS: CARVEDILOL 25 MG TAB PO SCH ×2 (10:31→21:12)
[2017-05-13] MEDS: TIOTROPIUM BROMIDE 5 PUFF/90 MCG INH INH SCH (10:31)
[2017-05-13] MEDS: INSULIN GLARGINE SOLOSTAR 100 UNITS/ML 3 ML PEN SC SCH ×2 (10:33→21:11)
[2017-05-13] MEDS: INSULIN ASPART 100 UNITS/ML 3 ML PEN SC SCH ×4 (10:35→21:00)
--- NOTE | 2017-05-13 11:29 | INFECT. DISEASE CONSULTATION ---
DATE OF CONSULTATION: 05/13/2017 REQUESTING PHYSICIAN: Dr. Todd. HISTORY OF PRESENT ILLNESS: This is a 66-year-old female who was admitted from her doctor's office after she was found to have a right fifth toe ulcer. She states she recently had an ankle fracture and had a cast done to her right foot. Her cast was removed yesterday and the ulcer was discovered at that time. She also had a fever of 101 prior to admission. She did have erythema of the foot and ankle. She was sent to the hospital and was admitted for a diabetic foot infection. She has been afebrile since admission. She was started empirically on vancomycin and Zosyn and is tolerating these antibiotics well. Her white blood cell count is negative with sed of 38. She did have an x-ray, which showed questionable osteomyelitis. Blood cultures were obtained and are pending. She does have a history of 3rd toe amputation. She did have an ultrasound, which showed normal ABIs, but atherosclerosis was noted. She is tolerating antibiotics well. She currently denies any fevers or chills. She states the erythema and the appearance of the ulceration have improved since admission to the hospital. She denies chest pain, cough, shortness of breath, nausea, vomiting, diarrhea or abdominal pain. Her only complaint is her right ankle pain, which persists due to her fracture. PAST MEDICAL HISTORY: Significant for end-stage renal disease on dialysis, COPD, CHF, type 2 diabetes, and a 3rd toe amputation. FAMILY HISTORY: Noncontributory. SOCIAL HISTORY: Negative for alcohol use, tobacco use or drug use. ALLERGIES: SHE HAS ALLERGIES TO HYDRALAZINE, ISOSORBIDE, AND EZE INHIBITORS. CURRENT MEDICATIONS: Include Spiriva, Zosyn, insulin, Coreg, Lantus, vancomycin, Tylenol, Maalox, milk of magnesia, MiraLax, Zofran, Percocet, and DuoNebs. PHYSICAL EXAMINATION: VITAL SIGNS: She is afebrile, pulse 70, respiratory rate 16, blood pressure 152/74, and oxygen saturation is 95% on 2 liters nasal cannula. GENERAL: She is awake, alert and oriented x3. She is in no acute distress. HEENT: Mucous membranes are moist. Extraocular muscles are intact. HEART: Regular. LUNGS: Clear. ABDOMEN: Soft, nontender, and nondistended. EXTREMITIES: There is no lower extremity edema. Examination of the right foot reveals significant ulceration of the fifth toe. This is macerated. There is no purulent drainage. There is no surrounding erythema. LABORATORY STUDIES: CBC reveals a white blood cell count of 5.6, hemoglobin 8.9, and platelets are 205. Sed rate is 38. Chemistry panel reveals a sodium of 135, potassium 3.6, chloride 94, bicarbonate 33, BUN 24, creatinine 2.9, and glucose is 165. LFTs are within normal limits. Wound culture shows no WBCs or organisms. Blood cultures are pending. Again, imaging of the foot shows questionable osteomyelitis, degenerative changes and peripheral vascular disease. ASSESSMENT AND PLAN: Diabetic foot ulceration with questionable osteomyelitis. She will remain on empiric antibiotics pending the results of her wound and blood cultures. She will also require local wound care. We will follow along with you. Thank you for this consultation.
[2017-05-13 15:29] VITALS: BP 137/60; PULSE 67; TEMP 36.9; O2SAT 99
--- NOTE | 2017-05-13 17:11 | Nephrology Consultation ---
Nephrology Consultation Date & Providers Date of Consultation: May 13, 2017. Primary Care Provider: Karla Todd M.D. Referring Provider: Reason for Consultation ESRD History of Present Illness Mrs. Santiago is a 66 year-old female with ESRD. She was seen and evaluated this morning. Nephrology consultation was required to assist in the management of ESRD. Medical records in hospital EMR were reviewed during the patient's evaluation today. Mrs. Santiago has ESRD due to diabetic nephropathy. She had a left upper arm AVF created 10/[address] Cobb. She required initiation of HD 07/02. She currently dialyzes at the [facility] HD unit (TTS 4 hours F-180NR 2K 2.5 Ca HCO3 35 EDW 85kg). Her medical history is also significant for peripheral neuropathy, hypertension, hypercholesterolemia, asthma, obesity and STEPHEN. She completed her scheduled dialysis treatment yesterday without significant complications. Mrs. Santiago was admitted to [facility] yesterday afternoon with an infected right 5th toe ulcer. The patient had recently suffered a fracture to her right ankle which was casted. The cast was removed and the ulcer was discovered at that time. She also had a fever of 101 during hemodialysis yesterday. She denies subjective fevers or chills. She did have erythema of the foot and ankle. Mrs. Santiago has been afebrile since admission. She was started empirically on vancomycin and Zosyn. ESR is not significantly elevated and WBC normal. Infectious disease consultation was reviewed. X-ray of the foot did note concern for osteomyelitis. Blood cultures have been drawn. JOAO's were checked and found to be normal. Past Medical/Surgical History Medical: # ESRD # AODM # Peripheral neuropathy # ASCVD s/p NSTEMI 10/28 # ICM w/ LVEF 35% and moderate MR # HTN # Hypercholesterolemia # Obesity (BMI 41) # STEPHEN # Asthma # Osteomyelitis requiring amputation of the third toe of the right foot # EZE inhibitor intolerance due to worsening MARVEL Surgical: # Left upper arm AV fistula created 10/10/[address] Cobb # Third right toe amputation due to osteomyelitis Allergies Coded Allergies: Hydralazine (Verified Allergy, Intermediate, rash, 05/12/17) Isosorbide Nitrate (Verified Allergy, Unknown, ITCHING, 05/12/17) EZE Inhibitors (Verified Adverse Reaction, Unknown, DUE TO CKD, 05/12/17) Inpatient Medications Current Inpatient Medications Medications (Trade) Dose Ordered Sig/Tu Route Start Time Stop Time Status Last Admin Dose Admin Acetaminophen (Tylenol Tab) 650 mg Q4H PRN PO 05/12/17 18:00 06/11/17 17:59 Al Hydrox/Mg Hydrox/Simethicone (Maalox Max Susp) 15 ml Q4H PRN PO 05/12/17 18:00 06/11/17 17:59 Magnesium Hydroxide (Milk Of Magnesia Susp) 30 ml Q6H PRN PO 05/12/17 18:00 06/11/17 17:59 Polyethylene (Miralax Powder Packet) 17 gm DAILY PRN PO 05/12/17 18:00 06/11/17 17:59 Ondansetron HCl (Zofran Inj) 4 mg Q6H PRN IV 05/12/17 18:00 06/11/17 17:59 Insulin Aspart (novoLOG ASPART) SLIDING SCALE If C... ACHS SC 05/12/17 21:00 06/11/17 20:59 05/13/17 14:14 8 UNITS Glucose (Glucose 40% Gel) 15-30 GRAMS 15 GRAMS... UD PRN PO 05/12/17 18:00 06/11/17 17:59 Glucose (Glucose Chew Tab) 4-8 Tablets 4 Tabl... UD PRN PO 05/12/17 18:00 06/11/17 17:59 Dextrose (Dextrose 50% 50ML Syringe) 25-50ML OF 50% DW IV FOR... UD PRN IV 05/12/17 18:00 06/11/17 17:59 Glucagon (Glucagon Inj) 1 mg UD PRN SQ 05/12/17 18:00 06/11/17 17:59 Carvedilol (Coreg Tab) 25 mg BID PO 05/12/17 21:00 06/11/17 20:59 05/13/17 10:31 25 MG Acetaminophen/ Hydrocodone Bitart ([place] 5/325 Tab) 1 tab Q4 PRN PO 05/12/17 18:00 05/26/17 17:59 05/13/17 14:11 1 TAB Insulin Glargine (Lantus Solostar Pen) 15 units BID SC 05/12/17 21:00 06/11/17 20:59 9/27/17 10:33 15 UNITS Tiotropium [place] (Spiriva Handihaler Inhaler) 1 puff DAILY INH 05/13/17 09:00 06/12/17 08:59 05/13/17 10:31 1 PUFF Piperacillin Sod/ Tazobactam Sod 3.375 gm/Dextrose 115 ml @ 28.75 mls/ hr Q12H IV 05/13/17 00:00 06/24/17 00:00 05/13/17 14:10 28.75 MLS/HR Albuterol/ Ipratropium (Duoneb) 3 ml Q2R PRN INH 05/12/17 18:00 06/11/17 17:59 Piperacillin Sod/ Tazobactam Sod (Consult) 1 ea UD PRN N/A 05/12/17 20:00 06/11/17 19:59 Vancomycin HCl (Consult) 1 ea UD PRN N/A 05/12/17 20:00 06/22/17 19:59 Miscellaneous Information (Order Awaiting Action) 1 ea QS N/A 05/13/17 00:00 06/12/17 00:00 Family History FH: HTN (hypertension) Social History Smoking Status: Never Smoker Smokeless Tobacco Use: No Alcohol Use: none Drug Use: none Marital Status: Housing Status: lives with family Occupation: retired Patient is . She has 5 sons. One suffered TBI from ATV roll over resulting in left hemiparesis. She resides in [place], [place] near [place]. She denies tobacco or alcohol use. Review of Systems Constitutional: No fever, No chills, No fatigue Integumentary: No rash A complete review of systems was performed. Pertinent positives are noted above. All other systems are negative. Physical Exam Date Time Temp Pulse Resp B/P (MAP) Pulse Ox O2 Delivery O2 Flow Rate FiO2 05/13/17 15:29 36.9 67 18 137/60 (85) 99 Nasal Cannula 2.0 05/13/17 09:00 Room Air 05/13/17 07:25 36.6 70 16 152/74 (100) 95 Nasal Cannula 2.0 05/13/17 00:30 Room Air 05/12/17 23:03 37.0 72 16 133/66 (88) 95 Nasal Cannula 2.0 05/12/17 19:30 Nasal Cannula 2.0 05/12/17 19:20 37.0 90 18 162/76 (104) 92 Nasal Cannula 2.0 05/12/17 19:13 85 18 147/77 95 05/12/17 19:09 85 18 147/77 95 Nasal Cannula 2.0 05/12/17 17:00 88 18 182/91 92 Room Air General Appearance: WD/WN, no apparent distress Head: normocephalic, atraumatic Eyes: normal inspection, sclerae normal ENT: normal ENT inspection, pharynx normal Neck: supple, no JVD Respiratory/Chest: lungs clear, no respiratory distress, no accessory muscle use Cardiovascular: regular rate, rhythm, no gallop, no murmur Abdomen/GI: non tender, soft Back: normal inspection Extremities/Musculoskelatal: normal inspection, no pedal edema, + pertinent finding (LUE AVF with thrill and bruit) Neurologic/Psych: alert, oriented x 3 Skin: normal color Laboratory Results Last 24 Hours Test 05/12/17 20:30 05/13/17 07:14 05/13/17 08:01 05/13/17 12:26 Bedside Glucose 273 mg/dl 165 mg/dl 236 mg/dl White Blood Count 5.66 K/uL Red Blood Count 2.91 M/uL Hemoglobin 8.9 g/dL Hematocrit 28.5 % Mean Corpuscular Volume 97.9 fL Mean Corpuscular Hemoglobin 30.6 pg Mean Corpuscular Hemoglobin Concent 31.2 g/dl RDW Standard Deviation 59.3 fL RDW Coefficient of Variation 16.6 % Platelet Count 205 K/uL Mean Platelet Volume 9.5 fL Sodium Level 135 mmol/L Potassium Level 3.6 mmol/L Chloride Level 94 mmol/L Carbon Dioxide Level 33 mmol/L Anion Gap 8.0 mmol/L Blood Urea Nitrogen 24 mg/dl Creatinine 2.90 mg/dl Est Creatinine Clear Calc Drug Dose 18.9 ml/min Estimated GFR () 18.5 Estimated GFR (Non- 16.0 BUN/Creatinine Ratio 8.2 Random Glucose 176 mg/dl Calcium Level 8.5 mg/dl Random Vancomycin Level 21.0 mcg/ml Impression (1) ESRD (end stage renal disease) on dialysis (2) Diabetic ulcer of right foot (3) Secondary hyperparathyroidism of renal origin (4) Anemia (5) Congestive heart failure (CHF) Mrs. Santiago has ESRD due to diabetic nephropathy and dialyzes TTS at [facility]. Currently blood pressure, volume status and electrolytes are appropriate. She has been admitted with a pressure ulcer of the right 5th toe with suspected infection including possible osteomyelitis. Recommendations END STAGE RENAL DISEASE: -- HD TTS -- Orders have been entered for HD tomorrow as an inpatient -- Plan of care discussed with dialysis nurse -- Renal diet HYPERTENSION: -- Blood pressure controlled. No change to current medical regimen ANEMIA: -- Epogen will be provided with HD OTHER: -- Vancomycin level to be repeated in the AM prior to HD -- Antibiotics are appropriately dosed for IHD
--- NOTE | 2017-05-13 19:05 | CONSULTATION REPORT ---
DATE OF CONSULTATION: 05/13/2017 REASON FOR CONSULT: Right fifth toe ulcer and question of osteomyelitis of the fifth toe. HISTORY OF PRESENT ILLNESS: The patient is a pleasant 66-year-old white female who has a history of diabetes mellitus type 2 and states that she has mild neuropathy. She has had the right third toe removed in the past for something similar. She states that she was seeing a practitioner at the [facility]. She was told that she had a fracture of her ankle and was placed in a cast. She states that she had the cast on for approximately 1 week and that her friend had noted there was some blood staining on the end of her cast and that she should probably have it checked. She then went back to her practitioner who placed the cast and it was removed. When they removed the cast they found the present ulceration on the dorsal aspect of the fifth toe that was draining and looked somewhat purulent. She was then referred over to the Emergency Room here and she was admitted by the medical staff. Currently, she states that she is not having a lot of pain in the toe unless it is palpated. Wound care was in and cleaned up the ulcerative area last night and basically states that the toe today looks much better than it did yesterday. We have been consulted to see her for this problem with her toe. PAST MEDICAL HISTORY: ESRD, COPD, diastolic CHF, diabetes mellitus type 2, previous history of osteomyelitis of the third right toe with amputation. FAMILY HISTORY: Hypertension. SOCIAL HISTORY: The patient is a nonsmoker, does not use alcohol and is . MEDICATIONS: Aspirin 81 mg p.o. daily, carvedilol 25 mg p.o. b.i.d., NovoLog FlexPen 10 units subQ t.i.d. with meals and Lantus insulin 50 units subQ b.i.d., Dulera 200/5 two puffs inhaled b.i.d. and Spiriva HandiHaler 1 cap inhaled daily, [place] 5/325 one tablet p.o. q.4 hours p.r.n. ALLERGIES: HYDRALAZINE, ISOSORBIDE NITRATE AND EZE INHIBITORS. REVIEW OF SYSTEMS: As per admitting history and physical. PHYSICAL EXAMINATION: VITAL SIGNS: Latest temperature 36.9, pulse 67, respirations 18, BP 137/60, pulse ox 99 on 2 liters per nasal cannula. EXTREMITIES: Examination of the right foot shows a dressing over the right fifth toe that was placed by wound care. This was peeled back and an ulceration is noted on the dorsum of the fifth toe that is close to the DIP joint. There is mottling of the skin that is white around the ulceration that travels in a band around almost the toe completely. The tip of the toe up until just a little the past the nail bed is pink at this time and has some sluggish refill. There is no purulence noted from the toe or around the edges. There is no foul odor. Palpation of the toe does not express any purulence at this time but does cause the patient to have some mild discomfort. She does have a mild neuropathy noted. X-RAY REVIEW: Foot film reviewed shows a question of some osteomyelitis or periostitis of the fifth proximal phalanx and some possible erosions of the fifth interphalangeal joint. The ankle film does not show evidence of ankle fracture but degenerative changes and noted prior amputation of third digit and also notes the findings from the fifth toe. ASSESSMENT: Diabetic foot ulcer noted on the right fifth toe, possible osteomyelitis versus periostitis of the right fifth PIP joint. PLAN: Continue IV antibiotics and wound care per wound care team here. She will be seen by our physician today and possible recommendation of further wound care versus possible amputation.
[2017-05-13 23:05] VITALS: BP 128/70; PULSE 68; TEMP 36.7; O2SAT 83
[2017-05-13 23:10] VITALS: O2SAT 93
[2017-05-13] MEDS: ONDANSETRON INJ 2 MG/ML 2 ML VIAL IV PRN (23:16)
[2017-05-14] VITALS (18 sets, daily range): BP systolic 104–154; BP diastolic 42–106; PULSE 53–72; TEMP 36.2–37; O2SAT 90–98
[2017-05-14 06:11] LABS: HEMATOCRIT 28.5 % (37-47); MEAN CELL VOLUME 96.9 fL (80-100); MEAN CORPUSCULAR HEMOGLOBIN 30.6 pg (25-34); MEAN CORPUSCULAR HGB CONC 31.6 g/dl (32-36); MEAN PLATELET VOLUME 9.6 fL (7.4-10.4); PLATELET COUNT 190 K/uL (130-400); RED BLOOD COUNT 2.94 M/uL (4.2-5.4); WHITE BLOOD COUNT 5.22 K/uL (4.8-10.8)
[2017-05-14 06:39] LABS: BUN/CREATININE RATIO 9.3 (10-20); CALCIUM 8.7 mg/dl (8.5-10.1); CREATININE 3.8 mg/dl (0.60-1.20); MAGNESIUM 2.1 mg/dl (1.8-2.4); POTASSIUM 3.6 mmol/L (3.5-5.1)
[2017-05-14] MEDS ORDERED: EPOETIN ALFA 4000 UNITS/ML VIAL IV SCH (08:00)
[2017-05-14] MEDS: TIOTROPIUM BROMIDE 5 PUFF/90 MCG INH INH SCH (09:32)
[2017-05-14] MEDS: INSULIN ASPART 100 UNITS/ML 3 ML PEN SC SCH ×4 (09:36→21:00)
[2017-05-14] MEDS: INSULIN GLARGINE SOLOSTAR 100 UNITS/ML 3 ML PEN SC SCH ×2 (09:36→21:42)
--- NOTE | 2017-05-14 09:37 | Dialysis Progress Note ---
Hemodialysis Note Date of Service May 14, 2017. Chief Complaint ESRD Subjective No acute events overnight. Gemma was seen and evaluated during HD this morning. She is tolerating dialysis well. BP appropriate. Qb at goal. No fevers or chills. Denies pain. Gemma hopes that she will be able to get out of bed to ambulate this morning. She reports weakness in her ankle. Review of Systems A complete review of systems was performed. Pertinent positives are noted above. All other systems are negative. Vital Signs Last 8 Hrs Date Time Temp Pulse Resp B/P (MAP) Pulse Ox O2 Delivery O2 Flow Rate FiO2 05/14/17 08:49 36.2 58 118/58 (78) 05/14/17 08:21 Nasal Cannula 2.0 05/14/17 06:41 36.8 67 16 104/57 (73) 91 Nasal Cannula 2.0 Last Recorded Weight Weight (Kilograms): 94.600 Physical Exam General Appearance: WD/WN, no apparent distress Head: normocephalic, atraumatic Eyes: normal inspection, sclerae normal ENT: hearing grossly normal, pharynx normal Neck: supple, no JVD Respiratory/Chest: lungs clear, no respiratory distress, no accessory muscle use Cardiovascular: regular rate, rhythm, no gallop Abdomen/GI: non tender, soft Extremities/Musculoskelatal: normal inspection, no pedal edema Neurologic/Psych: alert, normal mood/affect Social History Smoking Status: Never smoker Smokeless Tobacco Use: No Alcohol Use: none Drug Use: none Marital Status: Housing Status: lives with family Occupation: retired Patient is . She has 5 sons. One suffered TBI from ATV roll over resulting in left hemiparesis. She resides in [place], [place]. She denies tobacco or alcohol use. Laboratory Results Past 24 Hours 05/14/17 05:31 05/14/17 05:31 Test 05/13/17 12:26 05/13/17 17:11 05/13/17 20:31 05/14/17 05:31 Bedside Glucose 236 mg/dl (70-90) 199 mg/dl (70-90) 170 mg/dl (70-90) Red Blood Count 2.94 M/uL (4.2-5.4) Mean Corpuscular Volume 96.9 fL (80-100) Mean Corpuscular Hemoglobin 30.6 pg (25-34) Mean Corpuscular Hemoglobin Concent 31.6 g/dl (32-36) RDW Standard Deviation 57.9 fL (36.4-46.3) RDW Coefficient of Variation 16.7 % (11.5-14.5) Mean Platelet Volume 9.6 fL (7.4-10.4) Anion Gap 8.0 mmol/L (3-11) Est Creatinine Clear Calc Drug Dose 14.4 ml/min Estimated GFR () 13.3 Estimated GFR (Non- 11.5 BUN/Creatinine Ratio 9.3 (10-20) Calcium Level 8.7 mg/dl (8.5-10.1) Magnesium Level 2.1 mg/dl (1.8-2.4) Random Vancomycin Level 16.5 mcg/ml Test 05/14/17 06:48 Bedside Glucose 151 mg/dl (70-90) Allergies Coded Allergies: Hydralazine (Verified Allergy, Intermediate, rash, 05/12/17) Isosorbide Nitrate (Verified Allergy, Unknown, ITCHING, 05/12/17) EZE Inhibitors (Verified Adverse Reaction, Unknown, DUE TO CKD, 05/12/17) Medications Current Inpatient Medications Medications (Trade) Dose Ordered Sig/Tu Route Start Time Stop Time Status Last Admin Dose Admin Acetaminophen (Tylenol Tab) 650 mg Q4H PRN PO 05/12/17 18:00 06/11/17 17:59 Al Hydrox/Mg Hydrox/Simethicone (Maalox Max Susp) 15 ml Q4H PRN PO 05/12/17 18:00 06/11/17 17:59 Magnesium Hydroxide (Milk Of Magnesia Susp) 30 ml Q6H PRN PO 05/12/17 18:00 06/11/17 17:59 Polyethylene (Miralax Powder Packet) 17 gm DAILY PRN PO 05/12/17 18:00 06/11/17 17:59 Ondansetron HCl (Zofran Inj) 4 mg Q6H PRN IV 05/12/17 18:00 06/11/17 17:59 05/13/17 23:16 4 MG Insulin Aspart (novoLOG ASPART) SLIDING SCALE If C... ACHS SC 05/12/17 21:00 06/11/17 20:59 05/13/17 18:37 4 UNITS Glucose (Glucose 40% Gel) 15-30 GRAMS 15 GRAMS... UD PRN PO 05/12/17 18:00 06/11/17 17:59 Glucose (Glucose Chew Tab) 4-8 Tablets 4 Tabl... UD PRN PO 05/12/17 18:00 06/11/17 17:59 Dextrose (Dextrose 50% 50ML Syringe) 25-50ML OF 50% DW IV FOR... UD PRN IV 05/12/17 18:00 06/11/17 17:59 Glucagon (Glucagon Inj) 1 mg UD PRN SQ 05/12/17 18:00 06/11/17 17:59 Carvedilol (Coreg Tab) 25 mg BID PO 05/12/17 21:00 06/11/17 20:59 05/13/17 21:12 25 MG Acetaminophen/ Hydrocodone Bitart ([place] 5/325 Tab) 1 tab Q4 PRN PO 05/12/17 18:00 05/26/17 17:59 05/13/17 20:11 1 TAB Insulin Glargine (Lantus Solostar Pen) 15 units BID SC 05/12/17 21:00 06/11/17 20:59 05/13/17 21:11 15 UNITS Tiotropium [place] (Spiriva Handihaler Inhaler) 1 puff DAILY INH 05/13/17 09:00 06/12/17 08:59 05/13/17 10:31 1 PUFF Piperacillin Sod/ Tazobactam Sod 3.375 gm/Dextrose 115 ml @ 28.75 mls/ hr Q12H IV 05/13/17 00:00 06/24/17 00:00 05/13/17 23:21 28.75 MLS/HR Albuterol/ Ipratropium (Duoneb) 3 ml Q2R PRN INH 05/12/17 18:00 06/11/17 17:59 Piperacillin Sod/ Tazobactam Sod (Consult) 1 ea UD PRN N/A 05/12/17 20:00 06/11/17 19:59 Vancomycin HCl (Consult) 1 ea UD PRN N/A 05/12/17 20:00 06/22/17 19:59 Miscellaneous Information (Order Awaiting Action) 1 ea QS N/A 05/13/17 00:00 06/12/17 00:00 Epoetin [place] (Procrit Inj) 4,000 units TuThSa@0800 IV 05/14/17 08:00 06/13/17 07:59 Impression (1) ESRD (end stage renal disease) on dialysis (2) Diabetic ulcer of right foot (3) Secondary hyperparathyroidism of renal origin (4) Anemia (5) Congestive heart failure (CHF) Mrs. Santiago has ESRD due to diabetic nephropathy and dialyzes TTS at [facility]. Currently blood pressure, volume status and electrolytes are appropriate. She has been admitted with a pressure ulcer of the right 5th toe with suspected infection including possible osteomyelitis. Recommendations END STAGE RENAL DISEASE: -- HD today per TTS schedule -- UF goal 2 kg -- Plan of care discussed with dialysis nurse -- Renal diet -- Medications appropriate for HD -- Continue to monitor pre-HD vanco level HYPERTENSION: -- Blood pressure controlled. No change to current medical regimen ANEMIA: -- Epogen 4000 with HD OTHER: -- Vancomycin level 16, to be redosed after HD
[2017-05-14] MEDS: HYDROCODONE/ACETAMOPHEN 5/325MG TAB PO PRN (10:19)
--- NOTE | 2017-05-14 10:29 | Pharmacy Progress Note ---
Pharmacy Abx Dose Short Note Date of Service May 14, 2017. 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 Plan Vancomycin * Random level of 16.5 mcg/mL is therapeutic. * This level indicates that on NON-HD days, pt is still clearing Vancomycin (~5 mcg/mL) * Pt to receive HD today (home schedule TuThSa) - Re-dose patient with 1000 mg IV X 1 following HD. * Goal trough level for osteomyelitis : 15 to 20 mcg/mL * Random level ordered for: 05/14/17 * Pt may actually require a very small dose on non HD days based on her small amount of clearance on her own Pharmacy will continue to follow and will adjust dose/frequency as necessary. Thank you.
--- NOTE | 2017-05-14 12:27 | Progress Note ---
Subjective Date of Service: May 14, 2017. Subjective Pt evaluation today including: conversation w/ patient, physical exam, chart review, lab review, review of studies, conversation w/ medical device sales consultant, review of inpatient medication list Doing okay, no fever and chill, no other complaint Problem List Medical Problems: (1) Bronchitis Status: Acute (2) CHF (congestive heart failure) Status: Acute (3) CHF exacerbation Status: Acute (4) COPD exacerbation Status: Acute (5) COPD exacerbation Status: Acute (6) End stage renal disease Status: Acute (7) Hyperkalemia Status: Acute (8) Hypoxia Status: Acute (9) Hypoxia Status: Acute (10) Hypoxia Status: Acute (11) Osteomyelitis Status: Acute (12) Pulmonary edema Status: Acute (13) Renal failure Status: Acute Review of Systems Constitutional: + fatigue, No fever, No chills, No sweats, No weight loss, No weakness, No problem reported Eyes: No worsening of vision, No eye pain, No redness, No discharge, No diplopia ENT: No hearing loss, No unusual epistaxis, No nasal symptoms, No sore throat, No tinnitus, No dental problems, No trouble swallowing Respiratory: No cough, No sputum, No wheezing, No shortness of breath, No dyspnea on exertion, No dyspnea at rest, No hemoptysis Cardiac: No chest pain, No orthopnea, No PND, No edema, No claudication, No palpitations Abdomen: No pain, No nausea, No vomiting, No diarrhea, No constipation Musculoskeletal: No joint pain, No muscle pain, No swelling, No calf pain Female : No dysuria, No urinary frequency, No hematuria, No incontinence, No abnormal vaginal bleeding, No vaginal discharge Neurologic: No memory loss, No paralysis, No weakness, No numbness/tingling, No vertigo, No balance problems Psychiatric: No depression symptoms, No anhedonism, No anxiety, No insomnia, No substance abuse Heme: No abnormal bleeding/bruising, No clotting problems, No swollen lymph nodes, No night sweats Endo: No fatigue, No excessive thirst, No excessive urination Skin: + problem reported (right fifth toe has a aspiration local skin red and yellow drainage, right ankle mild swelling), No new/changing skin lesions, No color change Objective Vital Signs Date Time Temp Pulse Resp B/P (MAP) Pulse Ox O2 Delivery O2 Flow Rate FiO2 05/14/17 12:00 61 125/42 05/14/17 11:45 56 150/59 05/14/17 11:30 57 135/63 05/14/17 11:15 60 154/106 05/14/17 11:00 62 145/68 05/14/17 10:45 59 138/69 05/14/17 10:30 60 141/69 05/14/17 10:15 60 127/71 05/14/17 10:00 57 128/64 05/14/17 09:45 59 127/58 05/14/17 09:30 61 129/80 05/14/17 09:15 60 124/58 05/14/17 09:00 58 121/53 05/14/17 08:49 36.2 58 118/58 (78) 05/14/17 08:21 Nasal Cannula 2.0 05/14/17 06:41 36.8 67 16 104/57 (73) 91 Nasal Cannula 2.0 05/13/17 23:45 Room Air 05/13/17 23:10 93 Nasal Cannula 2.0 05/13/17 23:05 36.7 68 20 128/70 (89) 83 Room Air 05/13/17 19:30 Room Air 05/13/17 15:29 36.9 67 18 137/60 (85) 99 Nasal Cannula 2.0 Physical Exam General Appearance: WD/WN, no apparent distress, + obese Eyes: normal inspection, PERRL, EOMI, sclerae normal ENT: normal ENT inspection, hearing grossly normal, pharynx normal Neck: supple, no adenopathy, thyroid normal, no JVD, no carotid bruits, trachea midline Respiratory/Chest: chest non-tender, normal breath sounds, no respiratory distress, no accessory muscle use, + decreased breath sounds Cardiovascular: regular rate, rhythm, no edema, no gallop, no JVD, no murmur Abdomen: normal bowel sounds, non tender, soft, no organomegaly, no pulsatile mass Extremities: non-tender, normal inspection, no pedal edema, no calf tenderness , normal capillary refill, pelvis stable, + pertinent finding (right ankle mild swelling, right fifth toes has ulceration, drainage, and skin red with irregular open wound) 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, no motor/sensory deficits, alert, normal mood/affect, oriented x 3 Skin: normal color, warm/dry, no rash Lymphatic: no adenopathy Laboratory Results Last 24 Hours Test 05/13/17 12:26 05/13/17 17:11 05/13/17 20:31 05/14/17 05:31 Bedside Glucose 236 mg/dl 199 mg/dl 170 mg/dl White Blood Count 5.22 K/uL Red Blood Count 2.94 M/uL Hemoglobin 9.0 g/dL Hematocrit 28.5 % Mean Corpuscular Volume 96.9 fL Mean Corpuscular Hemoglobin 30.6 pg Mean Corpuscular Hemoglobin Concent 31.6 g/dl RDW Standard Deviation 57.9 fL RDW Coefficient of Variation 16.7 % Platelet Count 190 K/uL Mean Platelet Volume 9.6 fL Sodium Level 131 mmol/L Potassium Level 3.6 mmol/L Chloride Level 94 mmol/L Carbon Dioxide Level 29 mmol/L Anion Gap 8.0 mmol/L Blood Urea Nitrogen 35 mg/dl Creatinine 3.80 mg/dl Est Creatinine Clear Calc Drug Dose 14.4 ml/min Estimated GFR () 13.3 Estimated GFR (Non- 11.5 BUN/Creatinine Ratio 9.3 Random Glucose 154 mg/dl Calcium Level 8.7 mg/dl Magnesium Level 2.1 mg/dl Random Vancomycin Level 16.5 mcg/ml Test 05/14/17 06:48 Bedside Glucose 151 mg/dl Assessment and Plan 66 y/o female admitted on 05/12/2017 because of a R 5th toe infection x 1 week PMHx of ESRD (T, Th, Sat), HTN, COPD, Diastolic CHF, and T2DM R 5th Toe possible Osteomyelitis: Stable, continue wound care, requested Dr. Tong consult per recommendation of wound care Check MRI to rule out osteomyelitis, which will be important to make decision for the length of antibiotic treatment Continue Zosyn and Vancomycin with renal dosing Continue to have ASA on hold pending further evaluation and possible intervention Follow-up wound Cx - however already received ABx Right lower extremity JOAO was normal however, right lower extremity artery ultrasound shows "Atherosclerosis with elevated velocity in the dorsalis pedis suggesting hemodynamically significant atherosclerotic narrowing" Orthopedics and ID input appreciated hx of possible ankle fracture, had a fracture of her ankle and was placed in a cast. Patient also reported about nonweightbearing for total 2 week from last Thursday, Will request orthopedic surgeon to address this condition ESRD (, , Thu): Dialysis on 05/12 - continue to monitor with daily BMP, renal consult and continue dialysis T2DM with Hyperglycemia: UNCONTROLLED: A1c 9.5 (March), continue Lantus 15 units BID and SSI HTN: COPD without Exacerbation: Chronic Diastolic CHF: The above condition is stable DVT Prophylaxis: SCDs Code Status: FULL RESUSCITATION Continued [facility] stay due to: multiple IV medications needed Discharge planning: uncertain
[2017-05-14] MEDS: CARVEDILOL 25 MG TAB PO SCH ×2 (13:00→21:55)
[2017-05-14] MEDS: PIPERACILL/TAZOBAC IV 3.375 GM in DEXTROSE 5% 100ML 100 ML IV SCH (13:00)
[2017-05-14] MEDS ORDERED: VANCOMYCIN INJ 1,000 MG in SODIUM CHLORIDE 0.9% 250ML 250 ML IV SCH (14:00)
--- NOTE | 2017-05-14 14:22 | Progress Note ---
Subjective Date of Service: May 14, 2017. Subjective pt tolerating abx. s/p ortho eval. ? amp vs abx. afebrile. wound culture with staph aureus, final pending. blood cultures negative. no overnight events. wbc 5.2 Problem List Medical Problems: (1) Bronchitis Status: Acute (2) CHF (congestive heart failure) Status: Acute (3) CHF exacerbation Status: Acute (4) COPD exacerbation Status: Acute (5) COPD exacerbation Status: Acute (6) End stage renal disease Status: Acute (7) Hyperkalemia Status: Acute (8) Hypoxia Status: Acute (9) Hypoxia Status: Acute (10) Hypoxia Status: Acute (11) Osteomyelitis Status: Acute (12) Pulmonary edema Status: Acute (13) Renal failure Status: Acute Objective Vital Signs Date Time Temp Pulse Resp B/P (MAP) Pulse Ox O2 Delivery O2 Flow Rate FiO2 05/14/17 12:15 53 114/57 05/14/17 12:00 61 125/42 05/14/17 11:45 56 150/59 05/14/17 11:30 57 135/63 05/14/17 11:15 60 154/106 05/14/17 11:00 62 145/68 05/14/17 10:45 59 138/69 05/14/17 10:30 60 141/69 05/14/17 10:15 60 127/71 05/14/17 10:00 57 128/64 05/14/17 09:45 59 127/58 05/14/17 09:30 61 129/80 05/14/17 09:15 60 124/58 05/14/17 09:00 58 121/53 05/14/17 08:49 36.2 58 118/58 (78) 05/14/17 08:21 Nasal Cannula 2.0 05/14/17 06:41 36.8 67 16 104/57 (73) 91 Nasal Cannula 2.0 05/13/17 23:45 Room Air 05/13/17 23:10 93 Nasal Cannula 2.0 05/13/17 23:05 36.7 68 20 128/70 (89) 83 Room Air 05/13/17 19:30 Room Air 05/13/17 15:29 36.9 67 18 137/60 (85) 99 Nasal Cannula 2.0 Laboratory Results Item Value Date Time Gram Stain - Final Resulted 05/12/172029 Ulcer Toe Right 5 Blood Culture - Preliminary Resulted 05/12/17 1544 Blood NO GROWTH TO DATE. Blood Culture - Preliminary Resulted 05/12/17 1540 Blood NO GROWTH TO DATE. Gram Stain - Final Resulted 05/12/172029 Ulcer Toe Right 5 Last 24 Hours Test 05/13/17 17:11 05/13/17 20:31 05/14/17 05:31 05/14/17 06:48 Bedside Glucose 199 mg/dl 170 mg/dl 151 mg/dl White Blood Count 5.22 K/uL Red Blood Count 2.94 M/uL Hemoglobin 9.0 g/dL Hematocrit 28.5 % Mean Corpuscular Volume 96.9 fL Mean Corpuscular Hemoglobin 30.6 pg Mean Corpuscular Hemoglobin Concent 31.6 g/dl RDW Standard Deviation 57.9 fL RDW Coefficient of Variation 16.7 % Platelet Count 190 K/uL Mean Platelet Volume 9.6 fL Sodium Level 131 mmol/L Potassium Level 3.6 mmol/L Chloride Level 94 mmol/L Carbon Dioxide Level 29 mmol/L Anion Gap 8.0 mmol/L Blood Urea Nitrogen 35 mg/dl Creatinine 3.80 mg/dl Est Creatinine Clear Calc Drug Dose 14.4 ml/min Estimated GFR () 13.3 Estimated GFR (Non- 11.5 BUN/Creatinine Ratio 9.3 Random Glucose 154 mg/dl Calcium Level 8.7 mg/dl Magnesium Level 2.1 mg/dl Random Vancomycin Level 16.5 mcg/ml Assessment and Plan (1) Diabetic foot infection Assessment & Plan: continue vanco for now, await final cultures, await ? plan for amp. stop zosyn. Continued [facility] stay due to: multiple IV medications needed Discharge planning: uncertain
--- NOTE | 2017-05-14 16:07 | DIAGNOSTIC IMAGING REPORT ---
RIGHT FOREFOOT MRI HISTORY: Right fifth toe ulceration. right 5th toe to rule out osteomyelitis TECHNIQUE: Multiplanar multisequence MRI of the right forefoot was performed both before and after the intravenous administration of contrast. COMPARISON STUDY: Right foot 05/12/2017. FINDINGS: There is again noted prior amputation of the third toe at the level of the proximal phalanx. Subcutaneous edema seen throughout the forefoot. Mild osteoarthritis within the first MTP joint. The fifth DIP joint is fused. Marrow edema within the distal phalanx of the fifth toe. There is also focal cortical destruction along the dorsal aspect of the distal phalanx and likely at the head of the proximal phalanx this is best seen on sagittal image 5 of 31. No loculated fluid collections to suggest an abscess. Focal skin ulceration along the dorsal aspect of the fifth toe. No fracture or dislocation. Normal marrow signal intensity seen throughout the remaining visualized osseous structures. IMPRESSION: Focal skin ulceration along the dorsal aspect of the fifth toe. Deep to the skin ulceration there are small focal areas of cortical destruction at the head of the proximal phalanx and at the base of the distal phalanx with associated marrow edema. Therefore, this is highly suspicious for osteomyelitis. Electronically signed by: Wayne Pham M.D. 05/14/2017 4:06 PM Dictated Date/Time: 05/14/2017 3:58 PM
[2017-05-15] VITALS (7 sets, daily range): BP systolic 118–130; BP diastolic 57–68; PULSE 56–69; TEMP 36.7–37; O2SAT 84–96
[2017-05-15] MEDS: HYDROCODONE/ACETAMOPHEN 5/325MG TAB PO PRN ×2 (06:43→11:41)
[2017-05-15 06:44] LABS: HEMATOCRIT 28.2 % (37-47); MEAN CELL VOLUME 97.6 fL (80-100); MEAN CORPUSCULAR HEMOGLOBIN 31.8 pg (25-34); MEAN CORPUSCULAR HGB CONC 32.6 g/dl (32-36); MEAN PLATELET VOLUME 9.6 fL (7.4-10.4); PLATELET COUNT 226 K/uL (130-400); RED BLOOD COUNT 2.89 M/uL (4.2-5.4); WHITE BLOOD COUNT 5.72 K/uL (4.8-10.8)
[2017-05-15 07:22] LABS: BUN/CREATININE RATIO 6.2 (10-20); CALCIUM 8.4 mg/dl (8.5-10.1); CREATININE 3.5 mg/dl (0.60-1.20); POTASSIUM 3.8 mmol/L (3.5-5.1)
--- NOTE | 2017-05-15 08:30 | Pharmacy Progress Note ---
Pharmacy Abx Dose Short Note Date of Service May 15, 2017. Assessment & Plan Assessment 66 year old female receiving vancomycin for treatment of osteomyelitis of right toe with h/o MRSA on right foot (from 2011) Day # 4of antimicrobial therapy. Plan Vancomycin * Random level of 24 mcg/mL is therapeutic/supratherapeutic * Pt will not receive HD today therefore no dose required today. * Goal trough level for osteomyelitis : 15 to 20 mcg/mL * Random level ordered for: 05/16/17 Pharmacy will continue to follow and will adjust dose/frequency as necessary. Thank you.
[2017-05-15] MEDS: TIOTROPIUM BROMIDE 5 PUFF/90 MCG INH INH SCH (09:05)
[2017-05-15] MEDS: CARVEDILOL 25 MG TAB PO SCH ×2 (09:05→20:56)
[2017-05-15] MEDS: INSULIN GLARGINE SOLOSTAR 100 UNITS/ML 3 ML PEN SC SCH ×2 (09:12→21:01)
[2017-05-15] MEDS: INSULIN ASPART 100 UNITS/ML 3 ML PEN SC SCH ×4 (09:13→20:59)
--- NOTE | 2017-05-15 09:35 | Progress Note ---
Subjective Date of Service: May 15, 2017. Subjective Pt evaluation today including: conversation w/ patient, physical exam, chart review, lab review, review of studies, review of inpatient medication list Doing well, no fever and chill, out of bed,, Problem List Medical Problems: (1) Bronchitis Status: Acute (2) CHF (congestive heart failure) Status: Acute (3) CHF exacerbation Status: Acute (4) COPD exacerbation Status: Acute (5) COPD exacerbation Status: Acute (6) End stage renal disease Status: Acute (7) Hyperkalemia Status: Acute (8) Hypoxia Status: Acute (9) Hypoxia Status: Acute (10) Hypoxia Status: Acute (11) Osteomyelitis Status: Acute (12) Pulmonary edema Status: Acute (13) Renal failure Status: Acute Review of Systems Constitutional: No fever, No chills, No sweats, No weight loss, No weakness, No fatigue, No problem reported Eyes: No worsening of vision, No eye pain, No redness, No discharge, No diplopia ENT: No hearing loss, No unusual epistaxis, No nasal symptoms, No sore throat, No tinnitus, No dental problems, No trouble swallowing Respiratory: No cough, No sputum, No wheezing, No shortness of breath, No dyspnea on exertion, No dyspnea at rest, No hemoptysis Cardiac: No chest pain, No orthopnea, No PND, No edema, No claudication, No palpitations Abdomen: No pain, No nausea, No vomiting, No diarrhea, No constipation Musculoskeletal: No joint pain, No muscle pain, No swelling, No calf pain Female : No dysuria, No urinary frequency, No hematuria, No incontinence, No abnormal vaginal bleeding, No vaginal discharge Neurologic: No memory loss, No paralysis, No weakness, No numbness/tingling, No vertigo, No balance problems Psychiatric: No depression symptoms, No anhedonism, No anxiety, No insomnia, No substance abuse Heme: No abnormal bleeding/bruising, No clotting problems, No swollen lymph nodes, No night sweats Endo: No fatigue, No excessive thirst, No excessive urination Skin: + problem reported (right toe ulceration and is in dressing) Objective Vital Signs Date Time Temp Pulse Resp B/P (MAP) Pulse Ox O2 Delivery O2 Flow Rate FiO2 05/15/17 08:59 69 16 130/64 (86) 96 Nasal Cannula 2.0 05/15/17 07:51 37.0 17 119/68 (85) 93 Room Air 05/15/17 07:15 93 Room Air 05/14/17 23:36 Nasal Cannula 2.0 05/14/17 22:50 37.0 72 16 120/65 (83) 98 Nasal Cannula 2.0 05/14/17 16:20 36.7 63 17 140/63 (88) 90 Nasal Cannula 2.0 05/14/17 16:00 Room Air 05/14/17 12:15 53 114/57 05/14/17 12:00 61 125/42 05/14/17 11:45 56 150/59 05/14/17 11:30 57 135/63 05/14/17 11:15 60 154/106 05/14/17 11:00 62 145/68 05/14/17 10:45 59 138/69 05/14/17 10:30 60 141/69 05/14/17 10:15 60 127/71 05/14/17 10:00 57 128/64 05/14/17 09:45 59 127/58 Physical Exam General Appearance: WD/WN, no apparent distress, + obese, + pertinent finding ( mild pale) Eyes: normal inspection, PERRL, EOMI, sclerae normal ENT: normal ENT inspection, hearing grossly normal, pharynx normal Neck: supple, no adenopathy, thyroid normal, no JVD, no carotid bruits, trachea midline Respiratory/Chest: chest non-tender, lungs clear, normal breath sounds, no respiratory distress, no accessory muscle use Cardiovascular: regular rate, rhythm, no edema, no gallop, no JVD, no murmur Abdomen: normal bowel sounds, non tender, soft, no organomegaly, no pulsatile mass Extremities: normal range of motion, non-tender, normal inspection, no pedal edema, no calf tenderness, normal capillary refill, pelvis stable 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, no motor/sensory deficits, alert, normal mood/affect, oriented x 3 Skin: normal color, warm/dry, no rash, + pertinent finding (right fifth toe is in dressing, right ankle no obvious swelling or erythema or bluish,) Lymphatic: no adenopathy Laboratory Results Last 24 Hours Test 05/14/17 11:47 05/14/17 16:59 05/14/17 20:36 05/15/17 06:02 Bedside Glucose 133 mg/dl 155 mg/dl 229 mg/dl White Blood Count 5.72 K/uL Red Blood Count 2.89 M/uL Hemoglobin 9.2 g/dL Hematocrit 28.2 % Mean Corpuscular Volume 97.6 fL Mean Corpuscular Hemoglobin 31.8 pg Mean Corpuscular Hemoglobin Concent 32.6 g/dl RDW Standard Deviation 59.6 fL RDW Coefficient of Variation 16.8 % Platelet Count 226 K/uL Mean Platelet Volume 9.6 fL Sodium Level 134 mmol/L Potassium Level 3.8 mmol/L Chloride Level 101 mmol/L Carbon Dioxide Level 25 mmol/L Anion Gap 8.0 mmol/L Blood Urea Nitrogen 22 mg/dl Creatinine 3.50 mg/dl Est Creatinine Clear Calc Drug Dose 16.5 ml/min Estimated GFR () 14.7 Estimated GFR (Non- 12.7 BUN/Creatinine Ratio 6.2 Random Glucose 176 mg/dl Calcium Level 8.4 mg/dl Random Vancomycin Level 24.2 mcg/ml Assessment and Plan 66 y/o female admitted on 05/12/2017 because of a R 5th toe infection x 1 week PMHx of ESRD (, , Thu), HTN, COPD, Diastolic CHF, and T2DM R 5th Toe highly suspicious Osteomyelitis with MRSA positive: Stable, continue wound care, requested Dr. Tong consult per recommendation of wound care MRI showed highly suspicious of osteomyelitis, Wound culture shows MRSA Will discussed with infectious disease of option of antibiotics such as IV vancomycin or Zyvox, Talked to orthopedic service, they will further evaluation for need of amputation are not, patient also need to home care surgeon Dr. Tong to see hx of possible ankle fracture, had a fracture of her ankle and was placed in a cast. Patient also reported about nonweightbearing for total 2 week from last Thursday, has requested orthopedic surgeon to address this condition ESRD (, , Sat): Dialysis on 05/12 - continue to monitor with daily BMP, renal consulted and continue dialysis, can give vancomycin during the dialysis per discussion T2DM with Hyperglycemia: UNCONTROLLED: A1c 9.5 (March), continue Lantus 15 units BID and SSI, blood glucose around 150-250 HTN: COPD without Exacerbation: Chronic Diastolic CHF: The above condition is stable DVT Prophylaxis: SCDs Code Status: FULL RESUSCITATION Continued [facility] stay due to: multiple IV medications needed Discharge planning: home
--- NOTE | 2017-05-15 09:37 | Nephrology Progress Note ---
Nephrology Progress Note Date of Service May 15, 2017. Chief Complaint ESRD Subjective No acute events overnight. No complaints this morning. Ankle remains stiff and sore but she denies significant pain. Denies fevers or chills. Out of bed without difficulty. Review of Systems A complete review of systems was performed. Pertinent positives are noted above. All other systems are negative. Vital Signs Last 8 Hrs Date Time Temp Pulse Resp B/P (MAP) Pulse Ox O2 Delivery O2 Flow Rate FiO2 05/15/17 08:59 69 16 130/64 (86) 96 Nasal Cannula 2.0 05/15/17 07:51 37.0 17 119/68 (85) 93 Room Air 05/15/17 07:15 93 Room Air Last Recorded Weight Weight (Kilograms): 94.600 Physical Exam General Appearance: WD/WN, no apparent distress Head: normocephalic, atraumatic Eyes: normal inspection, sclerae normal ENT: normal ENT inspection, pharynx normal Neck: supple, no JVD Respiratory/Chest: lungs clear, no respiratory distress, no accessory muscle use Cardiovascular: regular rate, rhythm, no gallop Abdomen/GI: non tender, soft Extremities/Musculoskelatal: normal inspection, no pedal edema, + pertinent finding (AVF with thrill and bruit) Neurologic/Psych: alert, normal mood/affect Family History FH: HTN (hypertension) Social History Smoking Status: Never smoker Smokeless Tobacco Use: No Alcohol Use: none Drug Use: none Marital Status: Housing Status: lives with family Occupation: retired Patient is . She has 5 sons. One suffered TBI from ATV roll over resulting in left hemiparesis. She resides in [place], [place] near [place]. She denies tobacco or alcohol use. Laboratory Results Past 24 Hours 05/15/17 06:02 05/15/17 06:02 Test 05/14/17 11:47 05/14/17 16:59 05/14/17 20:36 05/15/17 06:02 Bedside Glucose 133 mg/dl (70-90) 155 mg/dl (70-90) 229 mg/dl (70-90) Red Blood Count 2.89 M/uL (4.2-5.4) Mean Corpuscular Volume 97.6 fL (80-100) Mean Corpuscular Hemoglobin 31.8 pg (25-34) Mean Corpuscular Hemoglobin Concent 32.6 g/dl (32-36) RDW Standard Deviation 59.6 fL (36.4-46.3) RDW Coefficient of Variation 16.8 % (11.5-14.5) Mean Platelet Volume 9.6 fL (7.4-10.4) Anion Gap 8.0 mmol/L (3-11) Est Creatinine Clear Calc Drug Dose 16.5 ml/min Estimated GFR () 14.7 Estimated GFR (Non- 12.7 BUN/Creatinine Ratio 6.2 (10-20) Calcium Level 8.4 mg/dl (8.5-10.1) Random Vancomycin Level 24.2 mcg/ml Allergies Coded Allergies: Hydralazine (Verified Allergy, Intermediate, rash, 05/12/17) Isosorbide Nitrate (Verified Allergy, Unknown, ITCHING, 05/12/17) EZE Inhibitors (Verified Adverse Reaction, Unknown, DUE TO CKD, 05/12/17) Medications Current Inpatient Medications Medications (Trade) Dose Ordered Sig/Tu Route Start Time Stop Time Status Last Admin Dose Admin Acetaminophen (Tylenol Tab) 650 mg Q4H PRN PO 05/12/17 18:00 06/11/17 17:59 Al Hydrox/Mg Hydrox/Simethicone (Maalox Max Susp) 15 ml Q4H PRN PO 05/12/17 18:00 06/11/17 17:59 Magnesium Hydroxide (Milk Of Magnesia Susp) 30 ml Q6H PRN PO 05/12/17 18:00 06/11/17 17:59 Polyethylene (Miralax Powder Packet) 17 gm DAILY PRN PO 05/12/17 18:00 06/11/17 17:59 Ondansetron HCl (Zofran Inj) 4 mg Q6H PRN IV 05/12/17 18:00 06/11/17 17:59 05/13/17 23:16 4 MG Insulin Aspart (novoLOG ASPART) SLIDING SCALE If C... ACHS SC 05/12/17 21:00 06/11/17 20:59 05/15/17 09:13 8 UNITS Glucose (Glucose 40% Gel) 15-30 GRAMS 15 GRAMS... UD PRN PO 05/12/17 18:00 06/11/17 17:59 Glucose (Glucose Chew Tab) 4-8 Tablets 4 Tabl... UD PRN PO 05/12/17 18:00 06/11/17 17:59 Dextrose (Dextrose 50% 50ML Syringe) 25-50ML OF 50% DW IV FOR... UD PRN IV 05/12/17 18:00 06/11/17 17:59 Glucagon (Glucagon Inj) 1 mg UD PRN SQ 05/12/17 18:00 06/11/17 17:59 Carvedilol (Coreg Tab) 25 mg BID PO 05/12/17 21:00 06/11/17 20:59 05/15/17 09:05 25 MG Acetaminophen/ Hydrocodone Bitart ([place] 5/325 Tab) 1 tab Q4 PRN PO 05/12/17 18:00 05/26/17 17:59 05/15/17 06:43 1 TAB Insulin Glargine (Lantus Solostar Pen) 15 units BID SC 05/12/17 21:00 06/11/17 20:59 05/15/17 09:12 15 UNITS Tiotropium [place] (Spiriva Handihaler Inhaler) 1 puff DAILY INH 05/13/17 09:00 06/12/17 08:59 05/15/17 09:05 1 PUFF Albuterol/ Ipratropium (Duoneb) 3 ml Q2R PRN INH 05/12/17 18:00 06/11/17 17:59 Vancomycin HCl (Consult) 1 ea UD PRN N/A 05/12/17 20:00 06/22/17 19:59 Miscellaneous Information (Order Awaiting Action) 1 ea QS N/A 05/13/17 00:00 06/12/17 00:00 Epoetin [place] (Procrit Inj) 4,000 units TuThSa@0800 IV 05/14/17 08:00 06/13/17 07:59 05/14/17 10:30 4,000 UNITS Impression (1) ESRD (end stage renal disease) on dialysis (2) Diabetic ulcer of right foot (3) Secondary hyperparathyroidism of renal origin (4) Anemia (5) Congestive heart failure (CHF) Mrs. Santiago has ESRD due to diabetic nephropathy and dialyzes TTS at [facility]. Currently blood pressure, volume status and electrolytes are appropriate. She has been admitted with a pressure ulcer of the right 5th toe with suspected infection including possible osteomyelitis. Recommendations END STAGE RENAL DISEASE: -- HD tomorrow per TTS regimen -- Volume status and electrolytes currently appropriate -- Renal diet -- Medications appropriate for HD HYPERTENSION: -- Blood pressure controlled. No change to current medical regimen ANEMIA: -- Epogen 4000 with HD yesterday OTHER: -- Discussed plan of care with Dr. Arellano this morning -- Plan for PO Zyvox at discharge. If IV vancomycin is to be continued, please alert nephrology for appropriate outpatient arrangements with dialysis
--- NOTE | 2017-05-15 10:29 | Progress Note ---
Subjective Date of Service: May 15, 2017. Subjective Pt evaluation today including: conversation w/ patient, physical exam, chart review, lab review pt feeling well, no plans for surgery. MRI with osteo 5th toe. on vanco at HD. blood cultures negative, wound culture with CA-MRSA. tolerating abx. no f/c. no pain in foot, drainage less. All remaining ros reviewed and are negative. Problem List Medical Problems: (1) Bronchitis Status: Acute (2) CHF (congestive heart failure) Status: Acute (3) CHF exacerbation Status: Acute (4) COPD exacerbation Status: Acute (5) COPD exacerbation Status: Acute (6) End stage renal disease Status: Acute (7) Hyperkalemia Status: Acute (8) Hypoxia Status: Acute (9) Hypoxia Status: Acute (10) Hypoxia Status: Acute (11) Osteomyelitis Status: Acute (12) Pulmonary edema Status: Acute (13) Renal failure Status: Acute Objective Vital Signs Date Time Temp Pulse Resp B/P (MAP) Pulse Ox O2 Delivery O2 Flow Rate FiO2 05/15/17 08:59 69 16 130/64 (86) 96 Nasal Cannula 2.0 05/15/17 07:51 37.0 17 119/68 (85) 93 Room Air 05/15/17 07:15 93 Room Air 05/14/17 23:36 Nasal Cannula 2.0 05/14/17 22:50 37.0 72 16 120/65 (83) 98 Nasal Cannula 2.0 05/14/17 16:20 36.7 63 17 140/63 (88) 90 Nasal Cannula 2.0 05/14/17 16:00 Room Air 05/14/17 12:15 53 114/57 05/14/17 12:00 61 125/42 05/14/17 11:45 56 150/59 05/14/17 11:30 57 135/63 05/14/17 11:15 60 154/106 05/14/17 11:00 62 145/68 05/14/17 10:45 59 138/69 05/14/17 10:30 60 141/69 Physical Exam General Appearance: WD/WN, no apparent distress Eyes: normal inspection, EOMI Neck: supple Respiratory/Chest: lungs clear, normal breath sounds, no respiratory distress Cardiovascular: regular rate, rhythm, no edema Abdomen: non tender, soft Extremities: non-tender, no pedal edema Neurologic/Psychiatric: no motor/sensory deficits, alert, oriented x 3 Skin: normal color, no rash Comments: 5th toe wound dry, no purulence, no drainage, no warmth or tenderness to palpation Laboratory Results Item Value Date Time Gram Stain - Final Complete 05/12/17 2030 Ulcer Toe Right 5 Blood Culture - Preliminary Resulted 05/12/17 1544 Blood NO GROWTH TO DATE. Blood Culture - Preliminary Resulted 05/12/17 1540 Blood NO GROWTH TO DATE. Last 24 Hours Test 05/14/17 11:47 05/14/17 16:59 05/14/17 20:36 05/15/17 06:02 Bedside Glucose 133 mg/dl 155 mg/dl 229 mg/dl White Blood Count 5.72 K/uL Red Blood Count 2.89 M/uL Hemoglobin 9.2 g/dL Hematocrit 28.2 % Mean Corpuscular Volume 97.6 fL Mean Corpuscular Hemoglobin 31.8 pg Mean Corpuscular Hemoglobin Concent 32.6 g/dl RDW Standard Deviation 59.6 fL RDW Coefficient of Variation 16.8 % Platelet Count 226 K/uL Mean Platelet Volume 9.6 fL Sodium Level 134 mmol/L Potassium Level 3.8 mmol/L Chloride Level 101 mmol/L Carbon Dioxide Level 25 mmol/L Anion Gap 8.0 mmol/L Blood Urea Nitrogen 22 mg/dl Creatinine 3.50 mg/dl Est Creatinine Clear Calc Drug Dose 16.5 ml/min Estimated GFR () 14.7 Estimated GFR (Non- 12.7 BUN/Creatinine Ratio 6.2 Random Glucose 176 mg/dl Calcium Level 8.4 mg/dl Random Vancomycin Level 24.2 mcg/ml Assessment and Plan (1) Diabetic foot infection Assessment & Plan: will change to zyvox po, will likely need 6 weeks. will need continued wound care post d/c. If she is to be d/c wound center upon d/c can follow with ID there as well. If no insurance coverage for zyvox available or co-pay too high, alternative would be doxy 100mg po bid with food. ok for d/c from ID standpoint when otherwise stable. Continued [facility] stay due to: multiple IV medications needed Discharge planning: home
[2017-05-15] MEDS: LINEZOLID 600 MG TAB PO SCH ×2 (11:40→20:56)
[2017-05-15] MEDS ORDERED: NURSING VERBAL MED ORDER ONE (12:00)
[2017-05-15] MEDS ORDERED: LOPERAMIDE HCL 2 MG CAP PO PRN (12:15)
--- NOTE | 2017-05-15 14:20 | Wound Consultation: Inpatient ---
Wound Consultation Date of Consultation: May 15, 2017. Attending Physician: Ritesh Arellano MD, PhD Reason for Consultation: Traumatic ulceration right foot fifth digit History of Present Illness Patient states she developed an ulceration on her fifth toe right foot over the past week. Patient states that she was seen and evaluated for a questionable fracture to her right ankle 12 days ago. Cast was applied which was over the side of the fifth toe. Patient developed some bleeding from the site and ultimately was seen in the emergency department. Cast was removed patient was placed in a boot. Patient was subsequently admitted to the hospital for further evaluation of infection at this site. Patient currently has no complaint of fever chills or night sweats. Patient denies any chest pain shortness of breath abdominal discomfort nausea or vomiting. Patient has had a prior history of osteomyelitis of the third toe of the same foot requiring amputation approximately 3+ years ago. Patient currently denies any other systemic complaints at this time. Family History FH: HTN (hypertension) Social History Smoking Status: Never Smoker Smokeless Tobacco Use: No Alcohol Use: none Drug Use: none Marital Status: Housing Status: lives with family Occupation Status: retired Allergies Coded Allergies: Hydralazine (Verified Allergy, Intermediate, rash, 05/12/17) Isosorbide Nitrate (Verified Allergy, Unknown, ITCHING, 05/12/17) EZE Inhibitors (Verified Adverse Reaction, Unknown, DUE TO CKD, 05/12/17) Home Medications Scheduled Aspirin (Aspirin Ec), 81 MG PO DAILY Carvedilol (Coreg), 25 MG PO BID Insulin Aspart (Novolog Flexpen), 10 UNITS SQ TIDM Insulin Glargine (Lantus Solostar), 15 UNITS SC BID Mometasone Furoate-Formoterol (Dulera 200/5 Mcg), 2 PUFFS INH BID Tiotropium [place] (Spiriva Handihaler), 1 CAP INH DAILY Scheduled PRN Hydrocodone/Acetaminophen 5MG/325MG (Garita 5MG/325MG), 1 TABLET PO Q4 PRN for Pain Inpatient Medications Current Inpatient Medications Medications (Trade) Dose Ordered Sig/Tu Route Start Time Stop Time Status Last Admin Dose Admin Acetaminophen (Tylenol Tab) 650 mg Q4H PRN PO 05/12/17 18:00 06/11/17 17:59 Al Hydrox/Mg Hydrox/Simethicone (Maalox Max Susp) 15 ml Q4H PRN PO 05/12/17 18:00 06/11/17 17:59 Magnesium Hydroxide (Milk Of Magnesia Susp) 30 ml Q6H PRN PO 05/12/17 18:00 06/11/17 17:59 Polyethylene (Miralax Powder Packet) 17 gm DAILY PRN PO 05/12/17 18:00 06/11/17 17:59 Ondansetron HCl (Zofran Inj) 4 mg Q6H PRN IV 05/12/17 18:00 06/11/17 17:59 05/13/17 23:16 4 MG Insulin Aspart (novoLOG ASPART) SLIDING SCALE If C... ACHS SC 05/12/17 21:00 06/11/17 20:59 05/15/17 13:19 5 UNITS Glucose (Glucose 40% Gel) 15-30 GRAMS 15 GRAMS... UD PRN PO 05/12/17 18:00 06/11/17 17:59 Glucose (Glucose Chew Tab) 4-8 Tablets 4 Tabl... UD PRN PO 05/12/17 18:00 06/11/17 17:59 Dextrose (Dextrose 50% 50ML Syringe) 25-50ML OF 50% DW IV FOR... UD PRN IV 05/12/17 18:00 06/11/17 17:59 Glucagon (Glucagon Inj) 1 mg UD PRN SQ 05/12/17 18:00 06/11/17 17:59 Carvedilol (Coreg Tab) 25 mg BID PO 05/12/17 21:00 06/11/17 20:59 05/15/17 09:05 25 MG Acetaminophen/ Hydrocodone Bitart (Garita 5/325 Tab) 1 tab Q4 PRN PO 05/12/17 18:00 05/26/17 17:59 05/15/17 11:41 1 TAB Insulin Glargine (Lantus Solostar Pen) 15 units BID SC 05/12/17 21:00 06/11/17 20:59 05/15/17 09:12 15 UNITS Tiotropium [place] (Spiriva Handihaler Inhaler) 1 puff DAILY INH 05/13/17 09:00 06/12/17 08:59 05/15/17 09:05 1 PUFF Albuterol/ Ipratropium (Duoneb) 3 ml Q2R PRN INH 05/12/17 18:00 06/11/17 17:59 Miscellaneous Information (Order Awaiting Action) 1 ea QS N/A 05/13/17 00:00 06/12/17 00:00 Epoetin Conor (Procrit Inj) 4,000 units TuThSa@0800 IV 05/14/17 08:00 06/13/17 07:59 05/14/17 10:30 4,000 UNITS Linezolid (Zyvox Tab) 600 mg BID PO 05/15/17 11:00 06/26/17 10:59 05/15/17 11:40 600 MG Loperamide HCl (Imodium Cap) 2 mg Q8H PRN PO 05/15/17 12:15 06/14/17 12:14 Future Hold Review of Systems 10 systems were reviewed in their entirety and positive findings were noted in the chief complaint history of present illness. Physical Exam Date Time Temp Pulse Resp B/P (MAP) Pulse Ox O2 Delivery O2 Flow Rate FiO2 05/15/17 08:59 69 16 130/64 (86) 96 Nasal Cannula 2.0 05/15/17 07:51 37.0 17 119/68 (85) 93 Room Air 05/15/17 07:15 93 Room Air 05/14/17 23:36 Nasal Cannula 2.0 05/14/17 22:50 37.0 72 16 120/65 (83) 98 Nasal Cannula 2.0 05/14/17 16:20 36.7 63 17 140/63 (88) 90 Nasal Cannula 2.0 05/14/17 16:00 Room Air General: The patient is lying in a hospital bed in no distress. Alert, cooperative and appropriate to all questions. HEENT: Pupils equal and reactive to light. Sclera clear, EOM intact. Neck: Supple, No JVD noted Chest: CTA in all [place]. No deformity Heart: RRR without murmurs, S3, S4, thrills, rubs or heaves Extremities: Laceration is present on the fourth toe anterior lateral aspect initially showing the presence of a dense eschar with surrounding margins with eschar. There is no evidence of any active drainage or odor noted. There is no periwound erythema or edema present. There is tenderness to palpation in the medial malleolus region. No fluctuance noted at the ulcer site. No deformity is noted. Pulses are +2 in the dorsal pedal pulse and posterior tibial. Neurological: Alert and oriented x3. No focal deficits. Skin: No rashes, papules, vesicles, excoriations Laboratory Results Last 24 Hours Test 05/14/17 16:59 05/14/17 20:36 05/15/17 06:02 Bedside Glucose 155 mg/dl 229 mg/dl White Blood Count 5.72 K/uL Red Blood Count 2.89 M/uL Hemoglobin 9.2 g/dL Hematocrit 28.2 % Mean Corpuscular Volume 97.6 fL Mean Corpuscular Hemoglobin 31.8 pg Mean Corpuscular Hemoglobin Concent 32.6 g/dl RDW Standard Deviation 59.6 fL RDW Coefficient of Variation 16.8 % Platelet Count 226 K/uL Mean Platelet Volume 9.6 fL Sodium Level 134 mmol/L Potassium Level 3.8 mmol/L Chloride Level 101 mmol/L Carbon Dioxide Level 25 mmol/L Anion Gap 8.0 mmol/L Blood Urea Nitrogen 22 mg/dl Creatinine 3.50 mg/dl Est Creatinine Clear Calc Drug Dose 16.5 ml/min Estimated GFR () 14.7 Estimated GFR (Non- 12.7 BUN/Creatinine Ratio 6.2 Random Glucose 176 mg/dl Calcium Level 8.4 mg/dl Random Vancomycin Level 24.2 mcg/ml Assessment & Plan Assessment: Stage IV pressure ulcer fifth digit right foot in the face of diabetes Plan: X-rays were reviewed showed evidence of fracture in the ankle region. There is presence of osteomyelitic changes in the fifth toe right foot. Department was indicated. With the patient's permission and after the application of topical Xylocaine 4% eschar with a #5 curettes using forceps was also removed. Some underlying swelling and subcutaneous tissue was removed. Bleeding from the curb was controlled with direct pressure. The site will be dressed with Aquacel and gauze changed daily basis. Patient had an orthostatic evaluation and offloading issues. Culture was obtained even though the patient is currently on antibiotic therapy. Patient will continued to be monitored during her hospitalization and followed up in the outpatient clinic upon discharge. This represented a excisional debridement of less than 20 cm.
--- NOTE | 2017-05-15 22:35 | Orthopedic Progress Note ---
Orthopedic Progress Note Date of Service May 15, 2017. Subjective Denies: chest pain, SOB, nausea / vomiting, light headedness, calf pain Additional Notes: Right 5th toe pain and swelling. Right medial malleolar pain with pressure and palpation. No fevers or chills. Objective calves soft nontender, capillary refill less than 2 sec., A&O x3 Right 5th toe with fusiform swelling and local erythema with proximal extension of cellulitis dorsolateral foot. Dorsolateral open DM pressure ulcer 5th toe with exposed subcutaneous fat and extensor tendon. Right significant TTP medial malleolus with local edema. DP/PT 1+/4 B LE. Previous amputation right 3rd toe. Dysthesias B feet with diminished light touch and pain sensation. Date Time Temp Pulse Resp B/P (MAP) Pulse Ox O2 Delivery O2 Flow Rate FiO2 05/15/17 20:53 60 129/57 (81) 05/15/17 16:15 Nasal Cannula 2.0 05/15/17 15:28 93 Room Air 05/15/17 15:00 36.7 56 16 118/63 (81) 84 Room Air 05/15/17 08:59 69 16 130/64 (86) 96 Nasal Cannula 2.0 05/15/17 07:51 37.0 17 119/68 (85) 93 Room Air 05/15/17 07:15 93 Room Air 05/14/17 23:36 Nasal Cannula 2.0 05/14/17 22:50 37.0 72 16 120/65 (83) 98 Nasal Cannula 2.0 Laboratory Results 24 Hours: Test 05/15/17 06:02 Hematocrit 28.2 % Hemoglobin 9.2 g/dL Assessment & Plan Assessment: Osteomyelitis distal right 5th toe Cellulitis right dorsolateral foot Right ankle medial malleolar pain w/o clear radiographic evidence of fracture Plan: Recommend right 5th toe amputation due to the overall poor chance of success with toe salvage in this particular patient, however patient would like to attempt 5th toe salvage and 6 weeks IV antibiotics. Recommend MRI right ankle to assess for occult fracture medial malleolus. Limit Weight bearing R LE with daily dressing changes, foot checks and use of protective fracture boot.
[2017-05-15] MEDS: ONDANSETRON INJ 2 MG/ML 2 ML VIAL IV PRN (23:56)
[2017-05-16] VITALS (22 sets, daily range): BP systolic 98–146; BP diastolic 44–83; PULSE 52–63; TEMP 36.4–36.7; O2SAT 93
[2017-05-16] MEDS: HYDROCODONE/ACETAMOPHEN 5/325MG TAB PO PRN (01:47)
[2017-05-16] MEDS: INSULIN ASPART 100 UNITS/ML 3 ML PEN SC SCH ×2 (08:05→13:19)
[2017-05-16] MEDS: TIOTROPIUM BROMIDE 5 PUFF/90 MCG INH INH SCH (08:18)
[2017-05-16] MEDS: LINEZOLID 600 MG TAB PO SCH (08:22)
[2017-05-16] MEDS: CARVEDILOL 25 MG TAB PO SCH (08:22)
[2017-05-16] MEDS: INSULIN GLARGINE SOLOSTAR 100 UNITS/ML 3 ML PEN SC SCH (08:25)
[2017-05-16] MEDS ORDERED: LINE1TAB2 PO (09:04)
--- NOTE | 2017-05-16 09:04 | Discharge Instructions ---
Discharge Instructions Date of Service May 16, 2017. Admission Reason for Admission: Osteomyelitis Discharge Discharge Diagnosis / Problem: Diabetic foot infection, Osteomyelitis Discharge Goals Goal(s): Decrease discomfort, Improve function, Increase independence, Improve disease control, Improve nutritional status, Learn about illness, Diagnostic testing, Therapeutic intervention, Prevent Disease Progression, Specific goals Activity Recommendations Activity Limitations: as noted below Exercise/Sports Limitations: gradually increase as tolerated Weightbearing Status: Right non-weightbearing . Instructions / Follow-Up Instructions / Follow-Up you have Diabetic foot infection and Osteomyelitis is on Zyvox po need 6 weeks , need to follow with ID Dr. Flanagan in 1-2 week, RN please provide Dr. Flanagan's office phone number you need to continue home health for wound care with dressed with Aquacel and gauze changed daily basis, you need to follow up Dr. Tong in outpatient clinic upon discharge in 1 week you have Right ankle medial malleolar pain w/o clear radiographic evidence of fracture, Dr. Floyd recommend MRI right ankle to assess for occult fracture medial malleolus you need to follow up with him for the ankle MRI results and further plan , RN please provide Dr. Floyd's office phone number you need to have limit Weight bearing R LE with daily dressing changes, foot checks and use of protective fracture boot. - you need to follow up with your primary care physician in 1 week, - take medication as instructed, never overdose or any misuse, or take with alcohol, because misuse of medicine may cause organ damage or , call your primary care physician if have questions of medicaitons. - call your primary care physician OR go to local emergency room if has any fever/chill, chest pain, shortness of breathing, nausea/vomiting/abdominal pain , facial droop/slurry speech/local weakness, or if has any questions. - fall precaution - diet as instructed - you need to follow up with your subspecialist - you should understand that it is important to follow up the above instruction , and "not following the above instruction" may cause delayed or missed care of your medical conditions which may cause permanent organ damage and even . Current Hospital Diet Patient's current hospital diet: Renal Diet, Diabetes Type 2 Diet Discharge Diet Recommended Diet: Diabetes Type 2 Diet Procedures Procedures Performed: MRI Pending Studies Studies pending at discharge: no Laboratory Results Hemoglobin A1c Test 03/17/17 01:45 Range/Units Estimated Average Glucose 226 mg/dl Hemoglobin A1c 9.5 H 4.5-5.6 % Medical Emergencies . Who to Call and When: Medical Emergencies: If at any time you feel your situation is an emergency, please call 911 immediately. . Non-Emergent Contact Non-Emergency issues call your: Primary Care Provider Call Non-Emergent contact if: you have a fever . . "Provider Documentation" section prepared by Ritesh Arellano. . VTE Core Measure Inpt VTE Proph given/why not?: Unfractionated heparin SQ, SCD's
--- NOTE | 2017-05-16 09:56 | Discharge Summary ---
Discharge Summary Date of Service May 16, 2017. Discharge Summary Admission Date: May 12, 2017 at 17:55 Discharge Date: May 16, 2017 Principal Diagnosis: Diabetic foot infection with oeteomyelitis Problems/Secondary Diagnoses: you have Diabetic foot infection is on Zyvox po need 6 weeks. you need continued wound care post discharge you need to follow with ID Dr. Flanagan in 1-2 week you need to continue home health wound care with dressed with Aquacel and gauze changed daily basis. you need to follow up Dr. Vaz in outpatient clinic upon discharge in 1 week you have Right ankle medial malleolar pain w/o clear radiographic evidence of fracture, Dr. Floyd recommend MRI right ankle to assess for occult fracture medial malleolus you need to follow up with him you need to have limit Weight bearing R LE with daily dressing changes, foot checks and use of protective fracture boot. - you need to follow up with your primary care physician in 1 week, - take medication as instructed, never overdose or any misuse, or take with alcohol, because misuse of medicine may cause organ damage or , call your primary care physician if have questions of medicaitons. - call your primary care physician OR go to local emergency room if has any fever/chill, chest pain, shortness of breathing, nausea/vomiting/abdominal pain , facial droop/slurry speech/local weakness, or if has any questions. - fall precaution - diet as instructed - you need to follow up with your subspecialist - you should understand that it is important to follow up the above instruction , and "not following the above instruction" may cause delayed or missed care of your medical conditions which may cause permanent organ damage and even . Immunizations: Have You Had Influenza Vaccine: Yes Influenza Vaccine Date: Jul 08, 2011 History of Tetanus Vaccine?: No History of Pneumococcal: No Pneumococcal Date: Mar 07, 2010 History of Hepatitis B Vaccine: No Procedures: MRI of right toe Consultations: ortho, id, and wound care Medication Reconciliation New Medications: Linezolid (Linezolid) 600 Mg Tab 600 MG PO BID for 42 Days, #84 TAB Continued Medications: Aspirin (Aspirin Ec) 81 Mg Tab 81 MG PO DAILY Carvedilol (Coreg) 25 Mg Tab 25 MG PO BID, TAB Hydrocodone/Acetaminophen 5MG/325MG (Martinez 5MG/325MG) Tab 1 TABLET PO Q4 PRN for Pain, TAB PRN PAIN Insulin Aspart (Novolog Flexpen) 100 Units/Ml Inj 10 UNITS SQ TIDM for 30 Days, #1800 UNITS USE PER SLIDING SCALE Insulin Glargine (Lantus Solostar) 100 Unit/Ml Inj 15 UNITS SC BID for 30 Days, #60 DOSE Mometasone Furoate-Formoterol (Dulera 200/5 Mcg) 1 Aer Aer 2 PUFFS INH BID Tiotropium [place] (Spiriva Handihaler) 30 Puff/540 Mcg Aerp 1 CAP INH DAILY, INHALER Discharge Exam pleasant, smiling, no c/o Review of Systems: Constitutional: No fever, No chills, No sweats, No weight loss, No weakness , No fatigue, No problem reported Eyes: No worsening of vision, No eye pain, No redness, No discharge, No diplopia, No problem reported ENT: No hearing loss, No unusual epistaxis, No nasal symptoms, No sore throat, No tinnitus, No dental problems, No trouble swallowing, No problem reported Respiratory: + dyspnea on exertion, No cough, No sputum, No wheezing, No shortness of breath, No dyspnea at rest, No hemoptysis, No problem reported Cardiovascular: No chest pain, No orthopnea, No PND, No edema, No claudication, No palpitations, No problem reported Abdomen: No pain, No nausea, No vomiting, No diarrhea, No constipation, No GI bleeding, No problem reported Musculoskeletal: + swelling (mild right ankle , ) Genitourinary - Female: No dysuria, No urinary frequency, No urinary urgency , No urinary incontinence, No urinary retention, No hematuria, No dysmenorrhea, No menorrhagia, No metrorrhagia, No rash, No vaginal bleeding, No vaginal discharge, No vaginal itching, No vulvodynia, No , No problem reported Neurologic: No memory loss, No paralysis, No weakness, No numbness/tingling , No vertigo, No balance problems, No problem reported Psychiatric: No depression symptoms, No anhedonism, No anxiety, No insomnia , No substance abuse, No problem reported Endocrine: No fatigue, No excessive thirst, No excessive urination, No problem reported Hematologic / Lymphatic: No abnormal bleeding/bruising, No clotting problems , No swollen lymph nodes, No night sweats, No problem reported Integumentary: + problem reported (righ t5th toe in dress ), No rash, No itch, No new/changing skin lesions, No color change, No bleeding Physical Exam: General Appearance: WD/WN, no apparent distress, + obese Eyes: normal inspection, PERRL, EOMI ENT: normal ENT inspection, hearing grossly normal Neck: supple, no adenopathy, thyroid normal Respiratory/Chest: chest non-tender, normal breath sounds, no respiratory distress, + decreased breath sounds Cardiovascular: regular rate, rhythm, no edema, no gallop Abdomen / GI: normal bowel sounds, non tender, soft, no organomegaly, no pulsatile mass, normal rectal exam Extremities: normal inspection, no calf tenderness, normal capillary refill , no pedal edema Neurologic/Psychiatric: 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 Tong consulted per recommendation of wound care MRI showed highly suspicious of osteomyelitis, Wound culture shows MRSA discussed with infectious disease switch IV vancomycin to oral Zyvox for total 6 weeks Talked to orthopedic service, further evaluation for need of amputation are not, it was recs by ortho, but pt declined and would like to try abx first with own risks such as worsening of infections hx of possible ankle fracture, had a fracture of her ankle and was placed in a cast. Patient also reported about nonweightbearing for total 2 week from last Thursday, ortho recs MRI ankle, pt declined, I talked to pt again today, she agreed, and need to follow up with ortho for testing results. ESRD (, , Sat): T2DM with Hyperglycemia: UNCONTROLLED: A1c 9.5 (March), continue Lantus 15 units BID and SSI, blood glucose around 150-250, educationed DM control, and recs life style modification and closely follow up with pcp HTN: COPD without Exacerbation: Chronic Diastolic CHF: The above condition is stable DVT Prophylaxis: SCDs Code Status: FULL RESUSCITATION DC instructions: you have Diabetic foot infection and osteomyelitis is on Zyvox po need 6 weeks. you need continued wound care post discharge you need to follow with ID Dr. Flanagan in 1-2 week you need to continue home health wound care with dressed with Aquacel and gauze changed daily basis. you need to follow up Dr. Vaz in outpatient clinic upon discharge in 1 week you have Right ankle medial malleolar pain w/o clear radiographic evidence of fracture, Dr. Floyd recommend MRI right ankle to assess for occult fracture medial malleolus you need to follow up with him you need to have limit Weight bearing R LE with daily dressing changes, foot checks and use of protective fracture boot. - you need to follow up with your primary care physician in 1 week, - take medication as instructed, never overdose or any misuse, or take with alcohol, because misuse of medicine may cause organ damage or , call your primary care physician if have questions of medicaitons. - call your primary care physician OR go to local emergency room if has any fever/chill, chest pain, shortness of breathing, nausea/vomiting/abdominal pain , facial droop/slurry speech/local weakness, or if has any questions. - fall precaution - diet as instructed - you need to follow up with your subspecialist - you should understand that it is important to follow up the above instruction , and "not following the above instruction" may cause delayed or missed care of your medical conditions which may cause permanent organ damage and even . Total Time Spent: Greater than 30 minutes This includes examination of the patient, discharge planning, medication reconciliation, and communication with other providers. Discharge Instructions Please refer to the electronic Patient Visit Report (Discharge Instructions) for additional information. Additional Copies To Zana Floyd D.O.; Zac Coley D.O.; Cristiano Tong, DO; Karla Todd M.D.
--- NOTE | 2017-05-16 10:25 | Dialysis Progress Note ---
Hemodialysis Note Date of Service May 16, 2017. Chief Complaint ESRD on HD Subjective Mrs. Santiago was seen & examined while on HD this morning. Her AVF is functioning well at Qb 400 cc/min. She currently denies fever, angina or dyspnea. Mrs. Santiago is anxious to return home but notes that she has been scheduled for MRI of the R ankle today. She may require orthopedic evaluation of her ankle prior to discharge Review of Systems Constitutional: No fever Respiratory: No dyspnea at rest Abdomen: No pain, No nausea, No vomiting Extremities: No leg edema A complete review of systems was performed. Pertinent positives are noted above. All other systems are negative. Vital Signs Last 8 Hrs Date Time Temp Pulse Resp B/P (MAP) Pulse Ox O2 Delivery O2 Flow Rate FiO2 05/16/17 10:00 59 146/54 05/16/17 09:45 57 139/62 05/16/17 09:30 56 127/68 05/16/17 09:18 36.7 59 129/64 (85) 05/16/17 08:20 63 05/16/17 07:05 36.5 59 16 145/83 (103) 93 Room Air Last Recorded Weight Weight (Kilograms): 94.600 Physical Exam General Appearance: no apparent distress Head: normocephalic, atraumatic Eyes: PERRL, EOMI Neck: no adenopathy Respiratory/Chest: lungs clear, no respiratory distress Cardiovascular: regular rate, rhythm Abdomen/GI: normal bowel sounds, non tender, soft Extremities/Musculoskelatal: no pedal edema, + pertinent finding (L arm AVF + bruit) Neurologic/Psych: alert, oriented x 3 Social History Smoking Status: Never smoker Smokeless Tobacco Use: No Alcohol Use: none Drug Use: none Marital Status: Housing Status: lives with family Occupation: retired Patient is . She has 5 sons. One suffered TBI from ATV roll over resulting in left hemiparesis. She resides in [place], [place] near [place]. She denies tobacco or alcohol use. Laboratory Results Past 24 Hours Test 05/15/17 12:03 05/15/17 17:13 05/15/17 20:38 05/16/17 06:47 Bedside Glucose 162 mg/dl (70-90) 109 mg/dl (70-90) 135 mg/dl (70-90) Random Vancomycin Level 18.7 mcg/ml Test 05/16/17 07:46 Bedside Glucose 132 mg/dl (70-90) Date/Time Source Procedure Growth Status 05/15/17 13:25 Stool C.difficile Toxin B Gene (PCR) - Final No C. difficile toxin B gene detected Complete Allergies Coded Allergies: Hydralazine (Verified Allergy, Intermediate, rash, 05/12/17) Isosorbide Nitrate (Verified Allergy, Unknown, ITCHING, 05/12/17) EZE Inhibitors (Verified Adverse Reaction, Unknown, DUE TO CKD, 05/12/17) Medications Current Inpatient Medications Medications (Trade) Dose Ordered Sig/Tu Route Start Time Stop Time Status Last Admin Dose Admin Acetaminophen (Tylenol Tab) 650 mg Q4H PRN PO 05/12/17 18:00 06/11/17 17:59 Al Hydrox/Mg Hydrox/Simethicone (Maalox Max Susp) 15 ml Q4H PRN PO 05/12/17 18:00 06/11/17 17:59 Magnesium Hydroxide (Milk Of Magnesia Susp) 30 ml Q6H PRN PO 05/12/17 18:00 06/11/17 17:59 Polyethylene (Miralax Powder Packet) 17 gm DAILY PRN PO 05/12/17 18:00 06/11/17 17:59 Ondansetron HCl (Zofran Inj) 4 mg Q6H PRN IV 05/12/17 18:00 06/11/17 17:59 05/15/17 23:56 4 MG Insulin Aspart (novoLOG ASPART) SLIDING SCALE If C... ACHS SC 05/12/17 21:00 06/11/17 20:59 05/16/17 08:05 5 UNITS Glucose (Glucose 40% Gel) 15-30 GRAMS 15 GRAMS... UD PRN PO 05/12/17 18:00 06/11/17 17:59 Glucose (Glucose Chew Tab) 4-8 Tablets 4 Tabl... UD PRN PO 05/12/17 18:00 06/11/17 17:59 Dextrose (Dextrose 50% 50ML Syringe) 25-50ML OF 50% DW IV FOR... UD PRN IV 05/12/17 18:00 06/11/17 17:59 Glucagon (Glucagon Inj) 1 mg UD PRN SQ 05/12/17 18:00 06/11/17 17:59 Carvedilol (Coreg Tab) 25 mg BID PO 05/12/17 21:00 06/11/17 20:59 05/16/17 08:22 25 MG Acetaminophen/ Hydrocodone Bitart (Closter 5/325 Tab) 1 tab Q4 PRN PO 05/12/17 18:00 05/26/17 17:59 05/16/17 01:47 1 TAB Insulin Glargine (Lantus Solostar Pen) 15 units BID SC 05/12/17 21:00 06/11/17 20:59 05/16/17 08:25 15 UNITS Tiotropium [place] (Spiriva Handihaler Inhaler) 1 puff DAILY INH 05/13/17 09:00 06/12/17 08:59 05/16/17 08:18 1 PUFF Albuterol/ Ipratropium (Duoneb) 3 ml Q2R PRN INH 05/12/17 18:00 06/11/17 17:59 Miscellaneous Information (Order Awaiting Action) 1 ea QS N/A 05/13/17 00:00 06/12/17 00:00 Epoetin [place] (Procrit Inj) 4,000 units TuThSa@0800 IV 05/14/17 08:00 06/13/17 07:59 05/14/17 10:30 4,000 UNITS Linezolid (Zyvox Tab) 600 mg BID PO 05/15/17 11:00 06/26/17 10:59 05/16/17 08:22 600 MG Loperamide HCl (Imodium Cap) 2 mg Q8H PRN PO 05/15/17 12:15 06/14/17 12:14 Future Hold Impression (1) ESRD (end stage renal disease) on dialysis (2) Diabetic ulcer of right foot (3) Secondary hyperparathyroidism of renal origin (4) Anemia (5) Congestive heart failure (CHF) Mrs. Santiago has ESRD due to diabetic nephropathy and dialyzes TTS at [facility]. Currently blood pressure, volume status and electrolytes are appropriate. She has been admitted with a pressure ulcer of the right 5th toe with suspected infection including possible osteomyelitis. She has had R ankle pain and is awaiting MRI of the R foot Recommendations END STAGE RENAL DISEASE: -- Patient was seen & examined during HD this morning. She is medically stable at this time. No change to current HD prescription. -- Volume status and electrolytes currently appropriate -- Renal diet HYPERTENSION: -- Blood pressure controlled. No change to current medical regimen ANEMIA: -- Will administer VITALY following HD today ID: -- Plan for PO Zyvox at discharge. If IV vancomycin is to be continued, please alert nephrology for appropriate outpatient arrangements with dialysis ORTHO: -- Patient has had R ankle discomfort. She is scheduled for a noncontrast MRI of the R foot later this morning. Will await results
[2017-05-16] MEDS ORDERED: EPOETIN ALFA 10,000 UNITS/ML VIAL IV SCH (10:30)
[2017-05-16 12:32] LABS: BUN/CREATININE RATIO 6.4 (10-20); CREATININE 2.2 mg/dl (0.60-1.20)
--- NOTE | 2017-05-16 14:01 | Orthopedic Progress Note ---
Orthopedic Progress Note Date of Service May 16, 2017. Subjective Denies: chest pain, SOB, nausea / vomiting, light headedness, calf pain Additional Notes: Mild right medial malleolus pain. No active pain right 5th toe. Awaiting MRI right ankle today. No fevers or chills. Objective calves soft nontender, dressing C/D/I, A&O x3 Right foot dressing in place. Trace soak through right 5th toe. No foul odor. Prior amputation 3rd toe right foot. Tenderness medial malleolus unchanged. Feet warm and dry. Date Time Temp Pulse Resp B/P (MAP) Pulse Ox O2 Delivery O2 Flow Rate FiO2 05/16/17 13:08 36.5 56 101/51 (68) 05/16/17 13:00 55 119/52 05/16/17 12:45 54 106/44 05/16/17 12:30 56 98/45 05/16/17 12:15 58 144/46 05/16/17 12:00 55 142/69 05/16/17 11:45 52 134/54 05/16/17 11:30 53 134/65 05/16/17 11:15 55 130/67 05/16/17 11:00 56 130/66 05/16/17 10:45 53 125/61 05/16/17 10:30 53 126/61 05/16/17 10:15 54 131/64 05/16/17 10:00 59 146/54 05/16/17 09:45 57 139/62 05/16/17 09:30 56 127/68 05/16/17 09:18 36.7 59 129/64 (85) 05/16/17 08:20 63 05/16/17 07:30 93 Room Air 05/16/17 07:05 36.5 59 16 145/83 (103) 93 Room Air 05/16/17 00:00 Nasal Cannula 2.0 05/15/17 23:16 95 Nasal Cannula 2.0 05/15/17 23:16 36.8 69 16 130/66 (87) 86 Room Air 05/15/17 20:53 60 129/57 (81) 05/15/17 16:15 Nasal Cannula 2.0 05/15/17 15:28 93 Room Air 05/15/17 15:00 36.7 56 16 118/63 (81) 84 Room Air Assessment & Plan Assessment: Osteomyelitis distal right 5th toe with fusiform swelling Cellulitis right dorsolateral foot Right ankle medial malleolar pain w/o clear radiographic evidence of fracture Plan: Recommend right 5th toe amputation due to the overall poor chance of success with toe salvage in this particular patient, however patient would like to attempt 5th toe salvage and 6 weeks IV antibiotics. Recommend MRI right ankle to definitively assess for occult fracture of the medial malleolus. Limit Weight bearing R LE, Daily dressing changes, Daily foot checks and use of protective fracture boot. Await results of MRI right ankle
--- NOTE | 2017-05-16 15:33 | DIAGNOSTIC IMAGING REPORT ---
R LOWER EXT JOINT WITHOUT CLINICAL HISTORY: 66 years-old Female presenting with right ankle to r/u fx, question medial abnormality. TECHNIQUE: Multisequence, multiplanar MR imaging of the right ankle was performed without the use of intravenous contrast. IV contrast: None. COMPARISON: Plain radiographs of the right ankle from 05/12/2017. FINDINGS: Localizer images: Unremarkable. Bony edema in the distal tibia and medial malleolus. A nondisplaced sagittally oriented fracture plane across the base of the medial malleolus is present. This extends to the ankle mortise anteriorly. The is minimal cortical irregularity along the posterior exit site. Trace ankle joint effusion. Cystic change noted at the base of the medial cuneiform, likely degenerative in etiology. Deltoid ligament intact. Anterior and posterior talofibular ligaments intact. Calcaneofibular ligament intact. Anterior posterior tibiofibular ligaments intact. Anterior compartment tendons normal. Posterior compartment tendons normal. Peroneal is longus and brevis tendons normal. Chiles tendon and plantar fascia normal. Diffuse subcutaneous edema in the lower leg and foot. Intramuscular edema primarily in the flexor compartment of the foot. IMPRESSION: 1. Sagittally oriented nondisplaced fracture at the base of the medial malleolus. Reactive bony edema in the distal tibia and medial malleolus. No ligamentous disruption. 2. Diffuse subcutaneous edema and intramuscular edema as above. Electronically signed by: Jim Redmond M.D. 05/16/2017 3:32 PM Dictated Date/Time: 05/16/2017 3:22 PM
[2017-05-25] MEDS ORDERED: LINE1TAB2 PO (13:42)
== END 2017-05-16 18:15 | disposition home health service (06) | DRG 592 ==
LOC: C.EDB 13:39 → UNDOADMIN 17:55 → C.MSN 17:55 → ENRESERV 18:06
PROVIDERS: ADMIT Hospitalist; ATTEND Hospitalist
DX: L89.893 Pressure ulcer of other site, stage 3 (principal); N18.6 End stage renal disease; M86.171 Other acute osteomyelitis, right ankle and foot; I50.32 Chronic diastolic (congestive) heart failure; I13.2 Hypertensive heart and chronic kidney disease with heart failure and with stage 5 chronic kidney disease, or end stage renal disease; M25.571 Pain in right ankle and joints of right foot; E11.622 Type 2 diabetes mellitus with other skin ulcer; J44.9 Chronic obstructive pulmonary disease, unspecified; E11.22 Type 2 diabetes mellitus with diabetic chronic kidney disease; E11.69 Type 2 diabetes mellitus with other specified complication; E11.65 Type 2 diabetes mellitus with hyperglycemia; E21.3 Hyperparathyroidism, unspecified; D64.9 Anemia, unspecified; L03.031 Cellulitis of right toe; B95.62 Methicillin resistant Staphylococcus aureus infection as the cause of diseases classified elsewhere; Z99.2 Dependence on renal dialysis; Z79.82 Long term (current) use of aspirin; Z89.421 Acquired absence of other right toe(s); Z79.4 Long term (current) use of insulin; Z82.49 Family history of ischemic heart disease and other diseases of the circulatory system

== ENCOUNTER 2017-06-25 21:31 | Emergency (ER) | payer OTHER ==
[~2017-06-25] VITALS: Ht 157.5 cm; Wt 88.7 kg
[~2017-06-25 21:31] MED LIST changes: -ADVIN50/60 INH; +HYDR-5688 PO; -IPRASOL4 INH; +LINE1TAB2 PO; +MOME200A INH
[2017-06-25 21:34] VITALS: TEMP 36.5; Ht 157.5 cm; Wt 88.7 kg
[2017-06-25] MEDS ORDERED: IBUP-103 PO (22:20)
[2017-06-25] MEDS ORDERED: CALC667C PO (22:20)
[2017-06-25] MEDS ORDERED: ACET-1256 PO (22:20)
[2017-06-25] MEDS ORDERED: CRG25 PO (22:20)
[2017-06-25] MEDS ORDERED: INSDGIPEN SC (22:20)
[2017-06-25] MEDS ORDERED: NVLGI/PEN SC (22:20)
[2017-06-25] MEDS ORDERED: LINE600T5 PO (22:20)
[2017-06-25 23:04] LABS: BASO % 0.2 %; BASO ABS # 0.01 K/uL (0-0.2); EOS % 2.6 %; IG% 0.2 %; LYMPH % 15.9 %; MEAN CORPUSCULAR HEMOGLOBIN 31.2 pg (25-34); MEAN CORPUSCULAR HGB CONC 31.2 g/dl (32-36); MEAN PLATELET VOLUME 9.2 fL (7.4-10.4); MONO % 10.1 %; PLATELET COUNT 193 K/uL (130-400); WHITE BLOOD COUNT 5.67 K/uL (4.8-10.8)
[2017-06-25 23:22] LABS: BUN/CREATININE RATIO 8.8 (10-20); CALCIUM 8.4 mg/dl (8.5-10.1); CREATININE 3.05 mg/dl (0.60-1.20); MAGNESIUM 2.1 mg/dl (1.8-2.4); POTASSIUM 3.8 mmol/L (3.5-5.1)
[2017-06-25 23:26] LABS: ANISOCYTOSIS PRESENT; COMPLETE YES
[2017-06-25 23:33] LABS: THYROID STIMULATING HORMONE 3.16 uIu/ml (0.300-4.500)
[2017-06-26 01:12] VITALS: O2SAT 93
[2017-06-26 01:59] VITALS: BP 142/61; PULSE 79
[2017-06-26 02:09] VITALS: O2SAT 93
--- NOTE | 2017-06-26 04:29 | EMERGENCY ROOM VISIT NOTE ---
History Report prepared by Dennis: Hilary Mora Under the Supervision of: Dr. West Schultz M.D. First contact with patient: 22:03 Chief Complaint: DIZZY Stated Complaint: DIZZY, THREW UP History of Present Illness The patient is a 66 year old female who presents to the Emergency Room with complaints of constant lightheadedness/dizziness starting 14 hours ago. The patient states that she is a dialysis patient and states that she became dizzy like this during dialysis. She reports that she had felt that way 2 times before recently with dialysis. She states that it hasn't gone away this time. She reports that today she couldn't even stand up and walk to her car. The patient states that when she feels like this, her blood pressure is low. She notes that the last time this happened her blood pressure was 94/46. She states that her blood pressure usually runs high. The patient states that right before coming she had a blood sugar level of 140 and a blood pressure of 133/64. The patient complains of a single episode of vomiting, a slight headache which just started, and mild weakness. The patient denies having any headache, neck pain, chest pain, palpitations earlier and she denies persistent nausea. The patient denies ever having vertigo before and ringing in her ears. She notes that she was on antibiotics for an ulcer on her toe recently. The patient denies having any sensation of the room spinning. She notes feeling worse when she is standing up. He is being treated with iron infusions for anemia. Pt denies LOC, fevers, chills, diaphoresis, visual changes, neck pain, chest pain, breathing difficulties, nausea, abdominal pain, back pain, melena, hematochezia, urinary symptoms, numbness, weakness, lymphadenopathy, rash, leg swelling, calf pain, or other complaints. Source of History: patient Onset: 14 hours ago Position: other (global) Quality: other (global) Timing: constant Associated Symptoms: + headache, + vomiting, + weakness Note: The patient denies ever having vertigo before and ringing in her ears. Review of Systems See HPI for pertinent positives and negatives. A total of ten systems were reviewed and were otherwise negative. Past Medical & Surgical Medical Problems: (1) Acute kidney injury (2) Acute respiratory distress (3) Chronic kidney disease (CKD) stage G4/A1, severely decreased glomerular filtration rate (GFR) between 15-29 mL/min/1.73 square meter and albuminuria creatinine ratio less than 30 mg/g (4) Chronic kidney disease, stage 4 (severe) (5) Chronic kidney disease, stage III (moderate) (6) Chronic osteomyelitis (7) Congestive heart failure (CHF) (8) Congestive heart failure (CHF) (9) Congestive heart failure with left ventricular systolic dysfunction (10) COPD (chronic obstructive pulmonary disease) (11) DIAB MANJIT WO COMPL, TYPE II OR UNSPEC TYPE, NOT UNCNTRLD (12) Diabetes (13) Diabetic foot infection (14) Diabetic ulcer of right foot (15) Elevated troponin (16) ESRD (end stage renal disease) on dialysis (17) Hypercholesterolemia (18) Hyperkalemia, diminished renal excretion (19) Hypertension (20) HYPERTENSION NOS (21) Hypoxemia (22) Kidney disease (23) Metabolic acidosis with normal anion gap and failure of bicarbonate regeneration (24) Obesity (25) Obstructive sleep apnea (26) Osteomyelitis of left foot (27) Peripheral neuropathy (28) PNEUMONIA, ORGANISM NOS (29) Proteinuria (30) Pulmonary edema (31) Secondary hyperparathyroidism of renal origin (32) SOB (shortness of breath) (33) Vitamin D deficiency, unspecified (34) Volume overload Family History FH: HTN (hypertension) Social History Smoking Status: Never Smoker Drug Use: none Marital Status: Housing Status: lives with family Occupation Status: retired Current/Historical Medications Scheduled Aspirin (Aspirin Ec), 81 MG PO DAILY Calcium Acetate (Phosphate Bin (Phoslo 667 Mg), 667 MG PO DAILY Carvedilol (Carvedilol), 25 MG PO BID Insulin Aspart (Novolog Flexpen), 1 DOSE SC TID Insulin Glargine (Lantus Solostar), 15 UNITS SC AMPM Linezolid (Zyvox), 600 MG PO DAILY Mometasone Furoate-Formoterol (Dulera 200/5 Mcg), 2 PUFFS INH BID Tiotropium [place] (Spiriva Handihaler), 1 CAP INH DAILY Scheduled PRN Acetaminophen (Tylenol), 1,000 MG PO Q6H PRN for Pain Ibuprofen Tab (Advil), 400 MG PO Q6H PRN for Pain Allergies Coded Allergies: Hydralazine (Verified Allergy, Intermediate, rash, 05/12/17) Isosorbide Nitrate (Verified Allergy, Unknown, ITCHING, 05/12/17) EZE Inhibitors (Verified Adverse Reaction, Unknown, DUE TO CKD, 05/12/17) Physical Exam Vital Signs Date Time Temp Pulse Resp B/P (MAP) Pulse Ox O2 Delivery O2 Flow Rate FiO2 06/26/17 02:09 93 Room Air 06/26/17 01:59 79 18 142/61 06/26/17 01:12 72 18 133/75 94 Room Air 06/26/17 01:12 93 Room Air 06/25/17 23:04 75 121/68 76 139/67 87 113/66 06/25/17 22:48 75 06/25/17 21:34 36.5 77 18 122/81 95 Room Air Physical Exam GENERAL: Awake, alert, well appearing, no distress HENT: Normocephalic, atraumatic. TM's normal. Oropharynx unremarkable. EYES: PERRL. EOMI. mildly pale conjunctiva. Sclera non-icteric. NECK: Supple. No nuchal rigidity. FROM. No JVD or bruit. RESPIRATORY: CTA CARDIAC: RRR. No murmur. ABDOMEN: Soft, non distended. No tenderness to palpation. No rebound or guarding. No masses. RECTAL: Deferred. MUSCULOSKELETAL: Unremarkable. No edema. No discoloration. Gross motor strength symmetric. NEURO: Cranial nerves 2-12 grossly intact. Normal sensorium. No sensory or motor deficits noted. Speech normal. No pronator drift. SKIN: No rash or jaundice noted. LYMPH: No adenopathy. Medical Decision & Procedures Laboratory Results 06/25/17 22:51 Red Blood Count 2.60, Mean Corpuscular Volume 100.0, Mean Corpuscular Hemoglobin 31.2, Mean Corpuscular Hemoglobin Concent 31.2, Mean Platelet Volume 9.2, Neutrophils (%) (Auto) 71.0, Lymphocytes (%) (Auto) 15.9, Monocytes (%) ( Auto) 10.1, Eosinophils (%) (Auto) 2.6, Basophils (%) (Auto) 0.2, Neutrophils # (Auto) 4.03, Lymphocytes # (Auto) 0.90, Monocytes # (Auto) 0.57, Eosinophils # ( Auto) 0.15, Basophils # (Auto) 0.01 06/25/17 22:51 Test 06/25/17 22:51 White Blood Count 5.67 K/uL (4.8-10.8) Red Blood Count 2.60 M/uL (4.2-5.4) Hemoglobin 8.1 g/dL (12.0-16.0) Hematocrit 26.0 % (37-47) Mean Corpuscular Volume 100.0 fL (80-100) Mean Corpuscular Hemoglobin 31.2 pg (25-34) Mean Corpuscular Hemoglobin Concent 31.2 g/dl (32-36) Platelet Count 193 K/uL (130-400) Mean Platelet Volume 9.2 fL (7.4-10.4) Neutrophils (%) (Auto) 71.0 % Lymphocytes (%) (Auto) 15.9 % Monocytes (%) (Auto) 10.1 % Eosinophils (%) (Auto) 2.6 % Basophils (%) (Auto) 0.2 % Neutrophils # (Auto) 4.03 K/uL (1.4-6.5) Lymphocytes # (Auto) 0.90 K/uL (1.2-3.4) Monocytes # (Auto) 0.57 K/uL (0.11-0.59) Eosinophils # (Auto) 0.15 K/uL (0-0.5) Basophils # (Auto) 0.01 K/uL (0-0.2) RDW Standard Deviation 74.1 fL (36.4-46.3) RDW Coefficient of Variation 20.2 % (11.5-14.5) Immature Granulocyte % (Auto) 0.2 % Immature Granulocyte # (Auto) 0.01 K/uL (0.00-0.02) Anisocytosis PRESENT Prothrombin Time 11.0 SECONDS (9.0-12.0) Prothromb Time International Ratio 1.0 (0.9-1.1) Activated Partial Thromboplast Time 25.9 SECONDS (21.0-31.0) Partial Thromboplastin Ratio 1.0 Anion Gap 7.0 mmol/L (3-11) Est Creatinine Clear Calc Drug Dose 18.3 ml/min Estimated GFR () 17.4 Estimated GFR (Non- 15.0 BUN/Creatinine Ratio 8.8 (10-20) Calcium Level 8.4 mg/dl (8.5-10.1) Magnesium Level 2.1 mg/dl (1.8-2.4) Total Bilirubin 0.4 mg/dl (0.2-1) Direct Bilirubin 0.1 mg/dl (0-0.2) Aspartate Amino Transf (AST/SGOT) 15 U/L (15-37) Alanine Aminotransferase (ALT/SGPT) 19 U/L (12-78) Alkaline Phosphatase 120 U/L (45-117) Total Protein 7.6 gm/dl (6.4-8.2) Albumin 3.6 gm/dl (3.4-5.0) Lipase 96 U/L (73-393) Thyroid Stimulating Hormone (TSH) 3.160 uIu/ml (0.300-4.500) Laboratory results reviewed by me ECG Indication: other (dizziness) Rate (beats per minute): 74 Rhythm: normal sinus Findings: prolonged QT, other (LVH) ED Course 2227: The patient was evaluated in room C6. A complete history and physical exam was performed. 0139: I reevaluated the patient and she is resting comfortably. She is asymptomatic. Ambulatory trial ordered. 0200: Patient was reassessed. She did well with ambulatory trial. Her symptoms have resolved. Discussed close outpatient follow-up. Patient feels comfortable. Medical Decision Prior records/ancillary studies reviewed. Triage Nursing notes reviewed and agree them. The patient's history was concerning for lightheadedness after dialysis. Differential diagnosis: Etiologies such as dehydration, orthostasis, benign positional vertigo, tumor, infection, hypoglycemia, electrolyte abnormalities, cardiac sources, intracerebral event, toxicologic, neurologic,PE as well as others were entertained. Physical examination: As above. No pathologic nystagmus. ER treatment provided: Monitoring On reassessment the patient felt well. Her symptoms resolved. The patient was ambulated. She had no recurrent symptoms. Diagnostics interpretation by me: ECG: Normal sinus rhythm without ischemic change or evidence of dysrhythmia. The labs revealed a normal CBC and chemistry panel except an elevated creatinine consistent with her end-stage renal disease and a chronic anemia which is slightly worse than prior. The patient had lightheadedness that has been a recurrent problem with dialysis recently. She denies any vertiginous symptoms. She was neurologically intact. CT imaging was felt to be unnecessary. She had no strokelike symptoms. She was found to be anemic and this was slightly worse than prior. She did not have exertional shortness of breath or chest symptoms. This anemia does not appear to be directly causing her lightheadedness. She did note that her blood pressure is normally elevated but was hypotensive for dialysis. She is concerned that she had too much fluid pulled off. She notes that she was hydrated at dialysis. She did eat and drink today after getting home. After eating and drinking she was feeling better. She was observed for several hours here in the Emergency Room and did well. She ambulated without difficulty. Inpatient treatment was felt to be unnecessary at this time. The patient feels comfortable going home. 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 By the evaluation outlined above emergent etiologies such as infection, hypoglycemia, electrolyte abnormalities, cardiac sources, intracerebral event, toxicologic, neurologic,as well as others were deemed relatively unlikely. The patient and family were informed about the findings as listed above. All questions were answered and they were pleased with the treatment. Return instructions were outlined and the patient was discharged in stable condition. Outpatient prescription management: Meclizine Referral: The patient was referred back to [] primary care physician for follow-up in 2 to 3 days for a recheck of the current condition. The chart was completed utilizing [employer] Speech voice recognition software. Grammatical errors, random word insertions, pronoun errors, and incomplete sentences are an occasional consequence of this system due to software limitations, ambient noise, and hardware issues. Any formal questions or concerns about the content, text, or information contained within the body of this dictation should be directly addressed to the physician for clarification. Medication Reconcilliation Current Medication List: was personally reviewed by me Impression Primary Impression: Lightheadedness Additional Impressions: Anemia Chronic kidney disease Scribe Attestation The scribe's documentation has been prepared under my direction and personally reviewed by me in its entirety. I confirm that the note above accurately reflects all work, treatment, procedures, and medical decision making performed by me. Departure Information Dispostion Home / Self-Care Referrals No Doctor, Assigned (PCP) Patient Instructions My [facility] Additional Instructions Rest and drink plenty of fluids. Eat a healthy diet. Continue current medications. Follow-up with your primary doctor and brass pourer's office tomorrow. Return to the ER for worsening dizziness, chest pain, difficulty breathing, fevers, vomiting, worsening of your condition, or as needed. Problem Qualifiers
[2017-06-29] MEDS ORDERED: MULT-506 PO (14:33)
[2017-06-29] MEDS ORDERED: B-CO1CAP17 PO (14:34)
[2017-06-29] MEDS ORDERED: OXGN (15:12)
== END 2017-06-26 02:14 | disposition home or self-care (01) ==
LOC: C.EDB 21:32 → C.EDC 06-26 02:14
DX: R42 Dizziness and giddiness (principal); D64.9 Anemia, unspecified; N18.4 Chronic kidney disease, stage 4 (severe); N17.9 Acute kidney failure, unspecified; I50.9 Heart failure, unspecified; E11.9 Type 2 diabetes mellitus without complications; I12.9 Hypertensive chronic kidney disease with stage 1 through stage 4 chronic kidney disease, or unspecified chronic kidney disease; Z99.2 Dependence on renal dialysis; Z79.82 Long term (current) use of aspirin; Z79.4 Long term (current) use of insulin; Z79.2 Long term (current) use of antibiotics; Z82.49 Family history of ischemic heart disease and other diseases of the circulatory system

== ENCOUNTER → 2017-06-30 | Outpatient (CLI) | payer OTHER ==
[~2017-06-30] MED LIST changes: +ACET-1256 PO; +ASPEC81 PO; +B-CO1CAP17 PO; +CALC667C PO; -CARV25TA2 PO; +CRG25 PO; -HYDR-5688 PO; -LINE1TAB2 PO; +LINE600T5 PO; +NVLGI/PEN SC; -NVLGI/PEN SQ; +OXGN; +OXYC-57 PO; +PROM25TA9 PO
[2017-06-30 12:24] LABS: URINE APPEARANCE TURBID (CLEAR); URINE BILIRUBIN NEG (NEG); URINE COLOR YELLOW; URINE EPITHELIAL CELL AUTO >30 /lpf (0-5); URINE NITRITE NEG (NEG); URINE PH 5.5 (4.5-7.5); URINE SPECIFIC GRAVITY 1.015 (1.000-1.030); UROBILINOGEN NEG (NEG)
[2017-06-30 12:30] LABS: BASO % 0.2 %; BASO ABS # 0.01 K/uL (0-0.2); EOS % 2.3 %; HEMATOCRIT 25.5 % (37-47); IG% 0.4 %; LYMPH % 16.1 %; LYMPH ABS # 0.85 K/uL (1.2-3.4); MEAN CELL VOLUME 102.4 fL (80-100); MEAN CORPUSCULAR HEMOGLOBIN 32.5 pg (25-34); MEAN CORPUSCULAR HGB CONC 31.8 g/dl (32-36); MEAN PLATELET VOLUME 9.5 fL (7.4-10.4); MONO % 10.6 %; NEUT % 70.4 %; PLATELET COUNT 190 K/uL (130-400); RED BLOOD COUNT 2.49 M/uL (4.2-5.4); WHITE BLOOD COUNT 5.27 K/uL (4.8-10.8)
[2017-06-30 12:37] LABS: MANUAL MICROSCOPIC REQUIRED? NO; REVIEW REQ? YES
[2017-06-30 12:52] LABS: ANISOCYTOSIS PRESENT; COMPLETE YES
[2017-06-30 13:01] LABS: BLOOD UREA NITROGEN 15 mg/dl (7-18); BUN/CREATININE RATIO 8.6 (10-20); CALCIUM 7.9 mg/dl (8.5-10.1); CARBON DIOXIDE 33 mmol/L (21-32); CHLORIDE 96 mmol/L (98-107); CREATININE 1.74 mg/dl (0.60-1.20); GLUCOSE 115 mg/dl (70-99); POTASSIUM 3.2 mmol/L (3.5-5.1); SODIUM 137 mmol/L (136-145)
[2017-06-30 13:14] LABS: ESTIMATED AVERAGE GLUCOSE 166 mg/dl; HA1C FLAG Normal (Normal)
== END | disposition home or self-care (01) ==
LOC: C.LAB 11:21
PROVIDERS: ATTEND Orthopaedic Surgery Sports Medicine
DX: S82.51XK Displaced fracture of medial malleolus of right tibia, subsequent encounter for closed fracture with nonunion (principal); X58.XXXD Exposure to other specified factors, subsequent encounter

== ENCOUNTER 2017-07-01 08:45 | Observation (INO) | payer OTHER ==
[2017-06-29 14:38] VITALS: BMI 34.0
--- NOTE | 2017-06-30 17:07 | History and Physical ---
History & Physical Date Jun 30, 2017. Chief Complaint right ankle pain History of Present Illness The patient is a 66 year old female with complaints of right ankle pain. She sustained a fall at home ~5 weeks ago. She had a medial malleolus fx which has become a nonunion. She is now being set up for surgical tx. Past Medical/Surgical History Medical Problems: (1) Acute kidney injury (2) Acute respiratory distress (3) Chronic kidney disease (CKD) stage G4/A1, severely decreased glomerular filtration rate (GFR) between 15-29 mL/min/1.73 square meter and albuminuria creatinine ratio less than 30 mg/g (4) Chronic kidney disease, stage 4 (severe) (5) Chronic kidney disease, stage III (moderate) (6) Chronic osteomyelitis (7) Congestive heart failure (CHF) (8) Congestive heart failure (CHF) (9) Congestive heart failure with left ventricular systolic dysfunction (10) COPD (chronic obstructive pulmonary disease) (11) DIAB MANJIT WO COMPL, TYPE II OR UNSPEC TYPE, NOT UNCNTRLD (12) Diabetes (13) Diabetic foot infection (14) Diabetic ulcer of right foot (15) Elevated troponin (16) ESRD (end stage renal disease) on dialysis (17) Hypercholesterolemia (18) Hyperkalemia, diminished renal excretion (19) Hypertension (20) HYPERTENSION NOS (21) Hypoxemia (22) Kidney disease (23) Metabolic acidosis with normal anion gap and failure of bicarbonate regeneration (24) Obesity (25) Obstructive sleep apnea (26) Osteomyelitis of left foot (27) Peripheral neuropathy (28) PNEUMONIA, ORGANISM NOS (29) Proteinuria (30) Pulmonary edema (31) Secondary hyperparathyroidism of renal origin (32) SOB (shortness of breath) (33) Vitamin D deficiency, unspecified (34) Volume overload Allergies Coded Allergies: Hydralazine (Verified Allergy, Intermediate, rash, 06/29/17) Isosorbide Nitrate (Verified Allergy, Unknown, ITCHING, 06/29/17) EZE Inhibitors (Verified Adverse Reaction, Unknown, DUE TO CKD, 06/29/17) Home Medications Scheduled Aspirin (Aspirin Ec), 81 MG PO QAM Calcium Acetate (Phosphate Bin (Phoslo 667 Mg), 667 MG PO QPM Carvedilol (Carvedilol), 25 MG PO QAM Home O2 Therapy (Oxygen), 2 LITERS NA PRN Insulin Aspart (Novolog Flexpen), 1 DOSE SC TID Insulin Glargine (Lantus Solostar), 15 UNITS SC AMPM Linezolid (Zyvox), 600 MG PO QPM Mometasone Furoate-Formoterol (Dulera 200/5 Mcg), 2 PUFFS INH BID Tiotropium [place] (Spiriva Handihaler), 1 CAP INH BID Vitamin B Cmplx/Vitc/Folic Ac (Nephrocaps), 1 CAP PO QAM Scheduled PRN Acetaminophen (Tylenol), 1,000 MG PO Q6H PRN for Pain Physical Examination Skin: warm/dry, no rash Eyes: normal inspection ENT: normal ENT inspection, pharynx normal Head: normocephalic, atraumatic Neck: supple, no adenopathy, trachea midline Respiratory/Chest: lungs clear, normal breath sounds, no respiratory distress Cardiovascular: regular rate, rhythm, no murmur Abdomen / GI: normal bowel sounds, non tender Extremities: + pertinent finding (Antalgic right gait. Tender to palpation over the medial malleolus. Painful PROM and AROM. Limited strength Right ankle. ) Neurologic/Psych: no motor/sensory deficits, alert, oriented x 3 Diagnosis Right ankle medial malleolus nonunion Plan of Treatment Recommend an ORIF right medial malleolus nonunion with autograft, calcaneal autograft harvest. All potential risks, benefits, complications, alternatives, and rehab were discussed with the patient. The patient wishes to proceed with the surgery as indicated. She will be scheduled 07.01.17.
[2017-07-01] VITALS (8 sets, daily range): BP systolic 129–148; BP diastolic 66–82; PULSE 67–86; TEMP 36.4–37.2; O2SAT 68–99; BMI 34.0
[~2017-07-01] VITALS: Ht 157.5 cm; Wt 97.5 kg
[~2017-07-01 08:45] MED LIST changes: -ASPEC81 PO; +BUPIVACAINE 0.5 % 5 MG/1 ML PF 10ML VIAL ONE; +CEFAZOLIN 2000MG IV PUSH 10 ML IV SCH; +LACTATED RINGER'S 1000ML 1,000 ML IV SCH; -OXYC-57 PO; -PROM25TA9 PO
[2017-07-01] MEDS ORDERED: ATROPINE SULFATE 0.1 MG/ML 5ML SYR IV PRN (09:45)
[2017-07-01] MEDS ORDERED: HYDROmorphone INJ 1 MG/ML SYR IV PRN ×2 (09:45→20:30)
[2017-07-01] MEDS ORDERED: ONDANSETRON INJ 2 MG/ML 2 ML VIAL IV PRN (09:45)
[2017-07-01] MEDS ORDERED: FENTANYL CITRATE INJ 50 MCG/1 ML 2 ML VIAL IV PRN (09:45)
[2017-07-01] MEDS ORDERED: EpHEDrine SULFATE INJ 50 MG/ML AMP IV PRN (09:45)
[2017-07-01] MEDS ORDERED: LABETALOL HCL IV 5 MG/ML 20ML IV PRN (09:45)
[2017-07-01] MEDS ORDERED: MEPERIDINE HCL 25 MG/ML CARP IV PRN (09:45)
[2017-07-01 10:03] LABS: BUN/CREATININE RATIO 8.7 (10-20); CALCIUM 8.5 mg/dl (8.5-10.1); CREATININE 3.2 mg/dl (0.60-1.20); POTASSIUM 3.7 mmol/L (3.5-5.1)
[2017-07-01] MEDS ORDERED: MIDAZOLAM HCL 1 MG/ML 2ML VIAL ONE ×2 (10:53→11:03)
[2017-07-01] MEDS ORDERED: FENTANYL CITRATE INJ 50 MCG/1 ML 2 ML VIAL ONE (10:53)
--- NOTE | 2017-07-01 11:02 | History & Physical Bridge Note ---
H&P Re-Evaluation Bridge Note: I have examined the patient, reviewed the History & Physical and in the interval since the performance of the History & Physical I have noted the following changes of clinical significance: No changes noted
[2017-07-01] MEDS ORDERED: VANCOMYCIN CONSULT ACTIVE PRN ×2 (12:30→14:05)
[2017-07-01] MEDS ORDERED: NEOSTIGMINE METHYLSULFATE 5 MG/5 ML SYR ONE (12:31)
[2017-07-01] MEDS ORDERED: EpHEDrine SULFATE 50MG/5ML SYR ONE (12:31)
[2017-07-01] MEDS ORDERED: LIDOCAINE HCL 2% 2 ML VIAL (20MG/ML) ONE (12:31)
[2017-07-01] MEDS ORDERED: GLYCOPYRROLATE INJ 0.2 MG/ML VIAL ONE (12:31)
[2017-07-01] MEDS ORDERED: ONDANSETRON INJ 2 MG/ML 2 ML VIAL ONE (12:31)
[2017-07-01] MEDS ORDERED: PROPOFOL IV EMULSION 10 MG/ML 20 ML VIAL IV ONE (12:31)
[2017-07-01] MEDS ORDERED: PHENYLEPHRINE HCL INJ 10 MG/ML VIAL ONE (12:37)
[2017-07-01] MEDS ORDERED: BACITRACIN 50000 UNIT VIAL ONE (12:37)
[2017-07-01] MEDS ORDERED: ROCURONIUM BROMIDE 10 MG/ML 5 ML VIAL IV ONE (12:40)
[2017-07-01] MEDS ORDERED: BUPIVACAINE 0.5 % 5 MG/1 ML MPF 30ML VIAL ONE (12:42)
[2017-07-01] MEDS ORDERED: VANCOMYCIN INJ 1,500 MG in SODIUM CHLORIDE 0.9% 250ML 250 ML IV ONE (12:45)
--- NOTE | 2017-07-01 13:36 | [facility] Post Operative Brief Note ---
Immediate Operative Summary Operative Date Jul 01, 2017. Pre-Operative Diagnosis Right Ankle Medial Malleolus Nonunion Post-Operative Diagnosis Right Ankle Medial Malleolus Nonunion Procedure(s) Performed 1. Right Ankle Medial Malleolus Non-Union Fracture Open Reduction Internal Fixation with Autograft; 2. Right Calcaneal Autograft [place] Surgeon Dr Floyd Degreasing Wheel Operator Surgeon(s) Nakul Christianson PA-C Estimated Blood Loss 4cc Findings See dict Specimens None as per surgeon Drains None Anesthesia GLMA w/ popliteal block Complication(s) None Disposition Recovery Room / PACU
--- NOTE | 2017-07-01 13:51 | DIAGNOSTIC IMAGING REPORT ---
R ANKLE 2 VIEWS CLINICAL HISTORY: Medial malleolus internal fixation. Ankle fracture. Fluoroscopy time: 34 seconds. FINDINGS: 2 fluoroscopic spot images of the right ankle. There is a medial cortical plate transfixed with screws bridging the medial malleolus fracture. The hardware appears intact. The alignment appears near-anatomic. IMPRESSION: Fluoroscopy provided for internal fixation of the medial malleolus fracture. Electronically signed by: Wayne Pham M.D. 07/01/2017 1:50 PM Dictated Date/Time: 07/01/2017 1:49 PM
[2017-07-01] MEDS ORDERED: ALUMINUM/MAGNESIUM/SIMETH (MAALOX MAX) 30 ML UDC PO PRN (14:00)
[2017-07-01] MEDS ORDERED: BISACODYL 10 MG SUPP PR PRN (14:00)
[2017-07-01] MEDS ORDERED: NO NSAIDS SCH (14:00)
[2017-07-01] MEDS ORDERED: MAGNESIUM HYDROXIDE SUSP 30 ML UDC PO PRN (14:00)
[2017-07-01] MEDS ORDERED: ZOLPIDEM TARTRATE 5 MG TAB PO PRN (14:00)
[2017-07-01] MEDS ORDERED: VANCOMYCIN INJ 0 MG in SODIUM CHLORIDE 0.9% 500ML 500 ML IV SCH (14:00)
[2017-07-01] MEDS ORDERED: MoRPHine SULFATE 2 MG/ML CARP IV PRN (14:00)
[2017-07-01] MEDS ORDERED: SOD PHOSPHATE/SOD BIPHOSPHATE ENEMA 132 ML BTL PR PRN (14:00)
[2017-07-01] MEDS ORDERED: PHARMACY GLYCEMIC MGMT CONSULT PRN (14:05)
--- NOTE | 2017-07-01 14:26 | OPERATIVE REPORT ---
DATE OF OPERATION: 07/01/2017 PREOPERATIVE DIAGNOSIS: Right ankle medial malleolus nonunion. POSTOPERATIVE DIAGNOSIS: Same. PROCEDURE: 1. Open reduction internal fixation, right medial malleolus nonunion with autografting. 2. Calcaneal autograft harvest. SURGEON: Zana Floyd DO ASSISTANT TEACHER PRIMARY: Nakul Christianson PA-C who was present for patient positioning, sterile prep and drape, management of retractors and instruments. He was present through the critical portions of the case including wound closure, application of sterile dressing and transport of the patient to recovery. ANESTHESIA: General LMA with popliteal block. SPECIMENS: None. DRAINS: None. COMPLICATIONS: None. BLOOD LOSS: 4 mL. PERTINENT HISTORY: This is a 66-year-old female with diabetes and dialysis dependent kidney dysfunction who had twisted her right ankle. She had been diagnosed with the fracture of the medial malleolus using MRI and was then treated nonoperatively. The patient then went on to develop a nonunion at the right medial malleolus and was then scheduled for surgery as indicated. All potential risks, benefits, complications, alternatives, rehab, potential for incomplete relief of symptoms, need for further surgery, DVT, PE, , persistent pain, swelling, scarring, weakness, neurovascular injury, wound complications, hardware failure, nonunion, malunion and potential further amputation was discussed with the patient. The patient decided to proceed with the procedure as indicated. DESCRIPTION OF PROCEDURE: After popliteal block was administered in the preop holding area, the patient was then taken to the operative suite, placed supine on the operating room table. After review of the consent and identification of proper operative site, the patient was anesthetized, LMA was placed. Tourniquet was placed high on the right thigh over cast padding. Right lower extremity was then sterilely prepped and draped in usual fashion, elevated, and exsanguinated with an Esmarch bandage, tourniquet inflated to 350 mmHg. Next, a 15 blade scalpel was used to make an oblique incision over the lateral aspect of the calcaneal tuberosity. The incision was deepened through subcutaneous tissue. Meticulous hemostasis was achieved with electrocautery. Full thickness skin flaps were developed. The periosteum was then incised with 15 blade scalpel and then a 6 mm osteotome and mallet was then used to make a trap door window of the cortical bone which was then elevated with a curved osteotome. Next, a large curette was then used to harvest cancellous bone and it was then placed in a sterile cup for later use. The marrow aspirate was also removed approximately 2 mL with 18-gauge needle and a 20 mL syringe. Next, the lateral incision was then irrigated copiously with sterile normal saline until clear, followed by closure of the periosteal flap of the bone lateral calcaneus with 2-0 Vicryl suture, followed by closure of the dermis with buried interrupted 3-0 Vicryl, skin was closed with 4-0 nylon. Next, a 15 blade scalpel was used to make an incision in an axial direction over the distal aspect of the medial tibia and the medial malleolus followed by identification of the saphenous vein and it was then retracted and protected. Next, the periosteum was then sharply elevated at the fracture site and under live fluoroscopic assistance, a freer elevator was then placed into the nonunion site and was then used to open the nonunion. Next, it was debrided and irrigated with a dental pick and copious amounts of sterile normal saline. Next, after the fibrous tissue was then removed from the nonunion site, bleeding bone was then identified and then the cancellous autograft was then packed into the nonunion site of the medial malleolus. This was then followed by stabilization of the fracture fragment with a 4.0 cannulated screw placed under live fluoroscopic assistance. Once this was used to compress and stabilize the medial malleolar fragment, the medial malleolus was then further stabilized with a locking hook plate. First bone tamp and mallet was then used to impact the tines of the hook plate into the medial malleolus and this was then followed by use of a long 4.0 cancellous lag screw placed under live fluoroscopic assistance to further compress the plate and the medial malleolar fragment into near anatomic position. Next, locking screws site locking screw was placed proximally, followed by compression nonlocking screw proximally, followed by a single nonlocking screw distally. AP and lateral radiographs demonstrate near anatomic fixation and stabilization of the median nerve fragment. The wound was then irrigated with sterile normal saline followed by closure of the periosteum with 2-0 Vicryl suture. The dermis was closed using buried interrupted 3-0 Vicryl. Skin was closed with 4-0 nylon. A 0.5% Marcaine plain, approximately 10 mL, was injected around the incision site medially and then a sterile compressive dressing and bulky Miles Estrada plaster splint was applied overwrapped with an Kaleb wrap in the neutral dorsiflexion. The tourniquet was released. The patient was awakened and taken to recovery in stable condition. I attest to the content of the Intraoperative Record and any orders documented therein. Any exception s are noted below.
[2017-07-01] MEDS ORDERED: GLUCOSE 10 TABS/TUBE PO PRN (14:30)
[2017-07-01] MEDS ORDERED: DEXTROSE 50% 50 ML SYR IV PRN (14:30)
[2017-07-01] MEDS ORDERED: GLUCOSE 40% GEL 15 GM TUBE PO PRN (14:30)
[2017-07-01] MEDS ORDERED: GLUCAGON FOR INJ 1 MG VIAL SQ PRN (14:30)
--- NOTE | 2017-07-01 14:44 | Pharmacy Progress Note ---
Glycemic Control Intl Consult Date of Service Jul 01, 2017. Scope Glycemic Pharmacist consulted by Nakul Christianson on 07/01/17 for glycemic control and to write orders per [facility] inpatient glycemic control protocol Objective Weight (Kilograms): 85.91 Accuchecks BSG (last 24hrs): Test 07/01/17 09:09 07/01/17 09:13 07/01/17 14:04 Random Glucose 259 mg/dl (70-99) Bedside Glucose 260 mg/dl (70-90) 184 mg/dl (70-90) Laboratory Data (last 24hrs) Test 07/01/17 09:09 Anion Gap 8.0 mmol/L BUN/Creatinine Ratio 8.7 Blood Urea Nitrogen 28 mg/dl Creatinine 3.20 mg/dl Potassium Level 3.7 mmol/L Sodium Level 136 mmol/L Recent Pertinent Medications Outpatient Anti-diabetic Regimen: * Lantus 15 units twice daily + Novolog sliding scale * A1c = 7.4 % 06/30/17 Risk Factors for Insulin Resistance: * Recent Surgery: POD 0 for ankle surgery * Diet: type 2 diabetic diet Assessment & Plan ASSESSMENT: * Ms Santiago is a 66 y/o F who is POD 1 for ankle surgery. She has PMH of ESRD on dialysis, COPD, and peripheral neuropathy. Based upon previous data, Ms Santiago requires around 60 units per day while hospitalized. This does come primarily as bolus insulin as her home basal regimen is relatively low. Patient took 15 units of Lantus prior to surgery. * Based upon the previous data, it is reasonable to resume the patient's home regimen of Lantus. For Novolog, it is reasonable to resume a weight-based stress of 3 dosing. This is not quite as tight as prior admissions, but the patient's Lantus dose is elevated compared to previous admissions. The patient did not receive any steroids prior to surgery or during surgery. She has very few stressors. * ADA & AACE recommend a goal blood sugar range 140-180 mg/dl for the majority of critically ill & non-critically ill patients. However, more stringent targets may be selected in individual cases. Will utilize more stringent goal of 110-140mg/dl based on patient age & comorbidities. Additionally, tighter glycemic control is warranted to facilitate wound healing. PLAN FOR INPATIENT GLYCEMIC CONTROL: * Basal insulin with LANTUS 15 units SQ BID * Correctional Insulin with NOVOLOG per scale ACHS or Q6hrs while NPO * Goal Range: Low 110 mg/dL - High 140 mg/dL * Correction Factor: 20 mg/dL/unit * Nutritional / Prandial insulin per carb ratio of 1 unit per 6 grams CHO consumed * Please note that the plan above was derived based on current level of insulin resistance and hospital stress. These recommendations are appropriate for inpatient admission only. Plan of care upon discharge will need to be reassessed to avoid potential outpatient hypo/hyperglycemia. Thank you.
--- NOTE | 2017-07-01 14:51 | Anesthesiology Progress Note ---
Anesthesia Post Op Note Date & Time Jul 01, 2017 at 14:51 Vital Signs Pain Intensity: 0 Vital Signs Past 12 Hours Date Time Temp Pulse Resp B/P (MAP) Pulse Ox O2 Delivery O2 Flow Rate FiO2 07/01/17 14:45 36.2 64 16 120/66 96 Nasal Cannula 2 07/01/17 14:35 36.2 65 16 123/56 95 Nasal Cannula 2 07/01/17 14:25 64 16 129/72 93 Nasal Cannula 2 07/01/17 14:15 64 16 121/64 98 Oxymask 10 07/01/17 14:05 65 16 127/71 98 Oxymask 10 07/01/17 13:59 36.6 66 16 127/65 97 Oxymask 10 07/01/17 09:17 36.6 71 20 141/79 (99) 96 Room Air Notes Mental Status: alert / awake / arousable, participated in evaluation Pt Amnestic to Procedure: Yes Nausea / Vomiting: adequately controlled Pain: adequately controlled Airway Patency, RR, SpO2: stable & adequate BP & HR: stable & adequate Hydration State: stable & adequate Anesthetic Complications: no major complications apparent
[2017-07-01] MEDS ORDERED: IV FLUIDS COMPLETED PRN (15:00)
--- NOTE | 2017-07-01 15:18 | Pharmacy Progress Note ---
Pharmacy Abx Initial Consult Date of Service Jul 01, 2017. Pharmacy Dosing Scope Date of Consult: 07/01/17 Consultation requested by: Dr. Floyd Pharmacy is consulted to initiate Vancomycin IV dosing therapy, order appropriate labs and adjust drug dose/frequency. Pt is only to receive one more dose post operatively. Subjective The patient is a 66 year old female admitted on . Objective Height (Feet): 5 Height (Inches): 2 Weight (Kilograms): 85.91 Vital Signs (Past 12Hrs) Vital Signs Past 12 Hours Date Time Temp Pulse Resp B/P (MAP) Pulse Ox O2 Delivery O2 Flow Rate FiO2 07/01/17 15:05 36.2 65 16 125/65 95 Nasal Cannula 2 07/01/17 14:55 36.2 64 16 129/60 94 Nasal Cannula 2 07/01/17 14:45 36.2 64 16 120/66 96 Nasal Cannula 2 07/01/17 14:35 36.2 65 16 123/56 95 Nasal Cannula 2 07/01/17 14:25 64 16 129/72 93 Nasal Cannula 2 07/01/17 14:15 64 16 121/64 98 Oxymask 10 07/01/17 14:05 65 16 127/71 98 Oxymask 10 07/01/17 13:59 36.6 66 16 127/65 97 Oxymask 10 07/01/17 09:17 36.6 71 20 141/79 (99) 96 Room Air Risk Factors for Resistance * Hospitalization for 48 hours or more within the past 90 days * Chronic dialysis within the past 30 days * History of infection with a multidrug-resistant organism: * Antimicrobial use within the last 90 days [zyvox] Assessment & Plan Assessment 66 year old female s/p ORIF. Pt ordered 1 dose of vanco preop and one dose of vanco post-op. Pt with ESRD on chronic HD. Nephrology is consulted. Unsure of when next HD session will be. Will dose vancomycin after next HD session or tomorrow if random level is grossly subtherapeutic. Plan Vancomycin for the treatment of post-op infection prophylaxis. Vancomycin IV * 1,500 mg IV x 1 dose pre-op. Dose is max concentrated for fluid restriction. * Goal trough level for SST : 10 to 20 mcg/mL * Random level ordered for 07/02/17 with AM labs * Will re-order next vanco dose based on AM level tomorrow and next HD session schedule. Pharmacy will continue to follow and will adjust dose/frequency as necessary. Thank you.
[2017-07-01] MEDS ORDERED: POTASSIUM CHLORIDE INJ 10 MEQ in SODIUM CHLORIDE 0.9% 1000ML 1,000 ML IV SCH (16:00)
--- NOTE | 2017-07-01 17:08 | DIAGNOSTIC IMAGING REPORT ---
R ANKLE MIN 3 VIEWS ROUTINE HISTORY: 66 years-old Female post op postoperative study status post medial malleolus fixation COMPARISON: Right ankle radiographs 07/01/2017 TECHNIQUE: 3 views of the right ankle FINDINGS: ORIF changes of the medial plate and screw fixation are present fixating the medial malleolus fracture with satisfactory alignment. Fine bony detail however is mildly obscured secondary to overlying casting material. IMPRESSION: Status post ORIF of the medial malleolus with satisfactory alignment. The above report was generated using voice recognition software. It may contain grammatical, syntax or spelling errors. Electronically signed by: Solo Roberts M.D. 07/01/2017 5:06 PM Dictated Date/Time: 07/01/2017 5:05 PM
[2017-07-01] MEDS: ACETAMINOPHEN 500 MG TAB PO SCH ×2 (17:41→22:00)
[2017-07-01] MEDS: INSULIN ASPART 100 UNITS/ML 3 ML PEN SC SCH ×2 (18:36→22:40)
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
[2017-07-01] MEDS: OXYCODONE HCL IR 5 MG TAB (IMMEDIATE RELEASE) PO PRN (20:12)
[2017-07-01] MEDS ORDERED: HYDROmorphone INJ 0.5 MG/0.5 ML SYR IV PRN (20:30)
[2017-07-01] MEDS ORDERED: LINEZOLID 600 MG TAB PO SCH (21:00)
--- NOTE | 2017-07-01 21:05 | Medical Consult ---
History General Date of Service: Jul 01, 2017. Stated Complaint: Right Tibia Displaced Fracture Of Medial Malleolus HPI The patient is a 66 year old female who presents to [facility] with complaints of Right Tibia Displaced Fracture Of Medial Malleolus. The patient's primary care provider is Karla Todd M.D.. Patient seen postoperatively after a medial malleolus nonunion fracture repair. Patient is a hemodialysis patient typically Thursday she is also a diabetic has a history of chronic systolic heart failure hypertension. Dr. Garcia has already seen the patient in scheduling her for dialysis here Her only postoperative complaint is pain control she is attempting oral medications at this time but I ordered increased dose of parenteral pain control her family is at the bedside and updated Review of Systems Constitutional: denies: chills, fever Cardiovascular: denies: chest pain, chest pressure Respiratory: denies: cough, orthopnea Gastrointestinal: denies: abdominal pain, constipation, diarrhea Genitourinary - Female: denies: dysuria, hematuria Integumentary: denies: rash, redness Neurologic: denies: headache, dizziness Psychiatric: reports: anxiety, denies: depression Family History FH: HTN (hypertension) Social History Hx Tobacco Use In Past Year?: No Smoking Status: Never Smoker Marital status: Housing status: lives with family Occupational Status: retired Immunizations History of Influenza Vaccine: Yes Influenza Vaccine Date: Jul 08, 2011 History of Tetanus Vaccine?: No History of Pneumococcal: No Pneumococcal Date: Mar 07, 2010 History of Hepatitis B Vaccine: No History of MDRO History of MDRO: Yes Type of MDRO: MRSA Allergies Coded Allergies: Hydralazine (Verified Allergy, Intermediate, rash, 06/29/17) Isosorbide Nitrate (Verified Allergy, Unknown, ITCHING, 06/29/17) EZE Inhibitors (Verified Adverse Reaction, Unknown, DUE TO CKD, 06/29/17) Current Medications Reported Home Medications Medications Dose Route/Sig Max Daily Dose Days Date Category Dose Instructions Oxygen Gas 2 Liters NA PRN 06/29/17 Reported Nephrocaps (Vitamin B Complex/Vit C/Folic Acid) Cap 1 Cap PO QAM 06/29/17 Reported Tylenol (Acetaminophen) 500 Mg Tab 1,000 Mg PO Q6H PRN 06/25/17 Reported Carvedilol 25 Mg Tab 25 Mg PO QAM 06/25/17 Reported Phoslo 667 Mg (Calcium Acetate (Phosphate Bin) 667 Mg Cap 667 Mg PO QPM 06/25/17 Reported Lantus Solostar (Insulin Glargine) 100 Unit/Ml Inj 15 Units SC AMPM 06/25/17 Reported Novolog Flexpen (Insulin Aspart) 100 Units/Ml Inj 1 Dose SC TID 06/25/17 Reported COVERAGE DIRECTED BY SLIDING SCALE Zyvox (Linezolid) 600 Mg Tab 600 Mg PO QPM 06/25/17 Reported Dulera 200/5 Mcg (Mometasone Furoate-Formoterol) 1 Aer Aer 2 Puffs INH BID 05/12/17 Reported Spiriva Handihaler (Tiotropium [place]) 30 Puff/540 Mcg Aerp 1 Cap INH DAILY 03/17/17 Reported Aspirin Ec (Aspirin) 81 Mg Tab 81 Mg PO QAM 03/17/17 Reported Physical Physical Exam Vital Signs: Date Time Temp Pulse Resp B/P (MAP) Pulse Ox O2 Delivery O2 Flow Rate FiO2 07/01/17 19:13 36.8 74 18 131/72 (91) 98 Nasal Cannula 2.0 07/01/17 18:00 37.2 75 17 129/66 (87) 99 Nasal Cannula 2.0 07/01/17 16:45 36.4 67 18 132/75 (94) 99 Nasal Cannula 2.0 07/01/17 16:10 Nasal Cannula 2.0 07/01/17 16:08 Nasal Cannula 2.0 07/01/17 15:05 36.2 65 16 125/65 95 Nasal Cannula 2 07/01/17 14:55 36.2 64 16 129/60 94 Nasal Cannula 2 07/01/17 14:45 36.2 64 16 120/66 96 Nasal Cannula 2 07/01/17 14:35 36.2 65 16 123/56 95 Nasal Cannula 2 07/01/17 14:25 64 16 129/72 93 Nasal Cannula 2 07/01/17 14:15 64 16 121/64 98 Oxymask 10 07/01/17 14:05 65 16 127/71 98 Oxymask 10 07/01/17 13:59 36.6 66 16 127/65 97 Oxymask 10 07/01/17 09:17 36.6 71 20 141/79 (99) 96 Room Air General Appearance: WELL-APPEARING, uncomfortable Head: NORMOCEPHALIC, ATRAUMATIC Eyes: PERRLA, EOMI Neck: SUPPLE, NO THYROMEGALY Respiratory: BREATH SOUNDS NORMAL, CLEAR TO AUSCULTATION Cardiovasular: REGULAR RATE/RHYTHM, NORMAL S1S2 Abdomen: NON TENDER, NORMAL BOWEL SOUNDS, NO REBOUND Upper Extremities: NO EDEMA, NORMAL ROM Lower Extremities: other (good capillary refill able to wiggle her toes distally in the right) Neuro: ALERT, ORIENTED x 3 Psychiatric: NORMAL AFFECT, NO SUICIDAL IDEATION Diagnostics Labs Results Past 24 Hours Test 07/01/17 09:09 07/01/17 09:13 07/01/17 14:04 07/01/17 17:21 Range/Units Sodium Level 136 136-145 mmol/L Potassium Level 3.7 3.5-5.1 mmol/L Chloride Level 96 98-107 mmol/L Carbon Dioxide Level 32 21-32 mmol/L Anion Gap 8.0 3-11 mmol/L Blood Urea Nitrogen 28 7-18 mg/dl Creatinine 3.20 0.60-1.20 mg/dl Est Creatinine Clear Calc Drug Dose 17.1 ml/min Estimated GFR () 16.4 Estimated GFR (Non- 14.2 BUN/Creatinine Ratio 8.7 10-20 Random Glucose 259 70-99 mg/dl Calcium Level 8.5 8.5-10.1 mg/dl Bedside Glucose 260 184 165 70-90 mg/dl Impression Assessment and Plan 66-year-old insulin requiring diabetic female with end-stage renal disease status post orthopedic repair of nonunion fracture next End-stage renal disease she'll be continued on hemodialysis per Dr. Torrey Tipton also attends any electrolyte changes For insulin she is currently on basal bolus insulin will continue with every before meals at bedtime Accu-Cheks chronic systolic heart failure and ASCVD will continue on carvedilol Patient's pain is not controlled to my visit will attempt to use oral medications but if it does not work we will pursue intravenous hydromorphone DVD preventions per surgical preference aspirin twice a day has been chosen
[2017-07-01] MEDS: SENNA 8.6 MG TAB PO SCH (21:14)
[2017-07-01] MEDS: CALCIUM ACETATE 667MG GELCAP PO SCH (21:14)
[2017-07-01] MEDS: DOCUSATE SODIUM 100 MG CAP PO SCH (21:14)
[2017-07-01] MEDS: ASPIRIN 81 MG ECTAB PO SCH (21:14)
[2017-07-01] MEDS: INSULIN GLARGINE SOLOSTAR 100 UNITS/ML 3 ML PEN SC SCH (22:43)
[2017-07-01] MEDS: ONDANSETRON INJ 2 MG/ML 2 ML VIAL IV PRN (22:50)
[2017-07-02] VITALS (23 sets, daily range): BP systolic 88–154; BP diastolic 50–96; PULSE 60–78; TEMP 36.5–37.1; O2SAT 76–100; Ht 157.5 cm; Wt 97.5 kg
[2017-07-02] MEDS ORDERED: PROMETHAZINE HCL INJ 12.5 MG in SODIUM CHLORIDE 0.9% 50ML 50 ML IV PRN (03:15)
[2017-07-02] MEDS: ACETAMINOPHEN 500 MG TAB PO SCH ×3 (06:15→21:59)
[2017-07-02] MEDS: OXYCODONE HCL IR 5 MG TAB (IMMEDIATE RELEASE) PO PRN (06:16)
[2017-07-02 06:21] LABS: HEMATOCRIT 25.7 % (37-47); MEAN CELL VOLUME 105.8 fL (80-100); MEAN CORPUSCULAR HEMOGLOBIN 32.5 pg (25-34); MEAN CORPUSCULAR HGB CONC 30.7 g/dl (32-36); MEAN PLATELET VOLUME 9.2 fL (7.4-10.4); PLATELET COUNT 164 K/uL (130-400); RED BLOOD COUNT 2.43 M/uL (4.2-5.4); WHITE BLOOD COUNT 6.09 K/uL (4.8-10.8)
[2017-07-02 06:51] LABS: BUN/CREATININE RATIO 9.3 (10-20); CALCIUM 8.4 mg/dl (8.5-10.1); CREATININE 4.14 mg/dl (0.60-1.20); POTASSIUM 5.1 mmol/L (3.5-5.1)
--- NOTE | 2017-07-02 08:08 | Orthopedic Progress Note ---
Orthopedic Progress Note Date of Service Jul 02, 2017. Subjective Post OP Day: 1 Reports: feeling well, pain controlled w PO medications, Denies: complaints, chest pain, SOB, nausea / vomiting, light headedness, calf pain Objective calves soft nontender, N/V intact, splint C/D/I, capillary refill less than 2 sec., dressing C/D/I, A&O x3, toes mobile Date Time Temp Pulse Resp B/P (MAP) Pulse Ox O2 Delivery O2 Flow Rate FiO2 07/02/17 06:59 36.6 70 18 128/72 (90) 100 Nasal Cannula 2.0 07/02/17 03:08 95 Nasal Cannula 3.0 07/02/17 03:05 36.6 78 18 154/77 (102) 76 Room Air 07/01/17 23:59 Nasal Cannula 3.0 07/01/17 23:05 93 Nasal Cannula 3.0 07/01/17 23:04 81 Nasal Cannula 2.0 07/01/17 23:03 36.7 86 24 148/75 (99) 68 Room Air 07/01/17 22:33 82 129/82 (98) 07/01/17 19:13 36.8 74 18 131/72 (91) 98 Nasal Cannula 2.0 07/01/17 18:00 37.2 75 17 129/66 (87) 99 Nasal Cannula 2.0 07/01/17 16:45 36.4 67 18 132/75 (94) 99 Nasal Cannula 2.0 07/01/17 16:10 Nasal Cannula 2.0 07/01/17 16:08 Nasal Cannula 2.0 07/01/17 15:05 36.2 65 16 125/65 95 Nasal Cannula 2 07/01/17 14:55 36.2 64 16 129/60 94 Nasal Cannula 2 07/01/17 14:45 36.2 64 16 120/66 96 Nasal Cannula 2 07/01/17 14:35 36.2 65 16 123/56 95 Nasal Cannula 2 07/01/17 14:25 64 16 129/72 93 Nasal Cannula 2 07/01/17 14:15 64 16 121/64 98 Oxymask 10 07/01/17 14:05 65 16 127/71 98 Oxymask 10 07/01/17 13:59 36.6 66 16 127/65 97 Oxymask 10 07/01/17 09:17 36.6 71 20 141/79 (99) 96 Room Air Laboratory Results 24 Hours: Test 07/02/17 05:52 Hematocrit 25.7 % Hemoglobin 7.9 g/dL Assessment & Plan Assessment: POD #1 1. Open reduction internal fixation, right medial malleolus nonunion with autografting. 2. Calcaneal autograft harvest Plan: Dialysis today. PT/OT--NWB RLE at all times. D/C planning--patient would like to go home but may need a rehab/SNF stay. Inhouse Planning Pain Management: PO Tylenol, Oxy IR DVT Prophylaxis: TEDs, ASA Discharge Planning Discharge Planning: uncertain
[2017-07-02] MEDS: PATIENT'S OWN MOMETASONE FUROATE-FORMOTEROL (DULERA) 200mcg/5mcg per inh INH SCH ×2 (08:26→21:48)
[2017-07-02] MEDS: TIOTROPIUM BROMIDE 5 PUFF/90 MCG INH INH SCH (08:27)
[2017-07-02] MEDS: DOCUSATE SODIUM 100 MG CAP PO SCH ×2 (08:28→21:59)
[2017-07-02] MEDS: MULTIVITAMIN TAB PO SCH (08:29)
[2017-07-02] MEDS: ASPIRIN 81 MG ECTAB PO SCH ×2 (08:29→21:59)
[2017-07-02] MEDS: PANTOprazole SOD 40 MG TAB PO SCH (08:30)
[2017-07-02] MEDS: NEPHROCAPS PO SCH (08:30)
[2017-07-02 08:36] LABS: ESTIMATED AVERAGE GLUCOSE 163 mg/dl; HA1C FLAG Normal (Normal)
[2017-07-02] MEDS: INSULIN ASPART 100 UNITS/ML 3 ML PEN SC SCH ×4 (08:38→22:05)
[2017-07-02] MEDS: INSULIN GLARGINE SOLOSTAR 100 UNITS/ML 3 ML PEN SC SCH ×2 (08:39→22:06)
--- NOTE | 2017-07-02 09:00 | Pharmacy Progress Note ---
Pharmacy Abx Dose Short Note Date of Service Jul 02, 2017. Assessment & Plan Assessment 66 year old female receiving 1 dose of vancomycin for post operative prophylaxis. Pt with ESRD on chronic HD. HD planned for this AM. Random level this AM 17.1- estimate level after HD ~12 Plan Vancomycin * Random level of 17.1 and estimate level after HD therapeutic for SSTI * Will redose with 750 mg x 1 after HD for last dose of post-op prophylaxis Pharmacy will continue to follow and will adjust dose/frequency as necessary. Thank you.
--- NOTE | 2017-07-02 09:05 | Anesthesiology Progress Note ---
Anesthesia Post Op Note Date & Time Jul 02, 2017 at 09:04 Vital Signs Pain Intensity: 5.0 Vital Signs Past 12 Hours Date Time Temp Pulse Resp B/P (MAP) Pulse Ox O2 Delivery O2 Flow Rate FiO2 07/02/17 06:59 36.6 70 18 128/72 (90) 100 Nasal Cannula 2.0 07/02/17 03:08 95 Nasal Cannula 3.0 07/02/17 03:05 36.6 78 18 154/77 (102) 76 Room Air 07/01/17 23:59 Nasal Cannula 3.0 07/01/17 23:05 93 Nasal Cannula 3.0 07/01/17 23:04 81 Nasal Cannula 2.0 07/01/17 23:03 36.7 86 24 148/75 (99) 68 Room Air 07/01/17 22:33 82 129/82 (98) Notes Mental Status: alert / awake / arousable, participated in evaluation Pt Amnestic to Procedure: Yes Nausea / Vomiting: improving with treatment Pain: adequately controlled Airway Patency, RR, SpO2: stable & adequate BP & HR: stable & adequate Hydration State: stable & adequate Anesthetic Complications: no major complications apparent Anesthetic Complications: PONV
[2017-07-02] MEDS ORDERED: EPOETIN ALFA 10,000 UNITS/ML VIAL IV SCH (09:30)
--- NOTE | 2017-07-02 10:14 | Nephrology Progress Note ---
Nephrology Progress Note Date of Service Jul 02, 2017. Chief Complaint Inpatient dialysis for this patient w/ ESRD Subjective Mrs. Santiago was seen and examined in preparation for HD this am. She complains of incisional discomfort but voices no other concerns. Mrs. Santiago hopes to begin walking with physical therapy today. She notes that she remains nonweight bearing status on her R foot. Review of Systems Constitutional: No fever Cardiovascular: No chest pain Respiratory: No dyspnea at rest Abdomen: No pain, No nausea, No vomiting Extremities: No leg edema A complete review of systems was performed. Pertinent positives are noted above. All other systems are negative. Vital Signs Last 8 Hrs Date Time Temp Pulse Resp B/P (MAP) Pulse Ox O2 Delivery O2 Flow Rate FiO2 07/02/17 07:25 Nasal Cannula 3.0 07/02/17 06:59 36.6 70 18 128/72 (90) 100 Nasal Cannula 2.0 07/02/17 03:08 95 Nasal Cannula 3.0 07/02/17 03:05 36.6 78 18 154/77 (102) 76 Room Air Last Recorded Weight Weight (Kilograms): 85.910 Physical Exam General Appearance: no apparent distress Head: normocephalic, atraumatic Eyes: PERRL, EOMI Neck: no adenopathy Respiratory/Chest: lungs clear, no respiratory distress Cardiovascular: regular rate, rhythm Abdomen/GI: normal bowel sounds, non tender, soft Extremities/Musculoskelatal: no pedal edema, + pertinent finding (R foot wrapped in EZE bandage) Neurologic/Psych: alert, oriented x 3 Family History FH: HTN (hypertension) Negative for CKD / ESRD Social History Smoking Status: Never smoker Drug Use: none Marital Status: Housing Status: lives with family Occupation: retired Patient is . She has 5 sons. One suffered TBI from ATV roll over resulting in left hemiparesis. She resides in [place], [place] near [place]. She denies tobacco or alcohol use. Laboratory Results Past 24 Hours 07/02/17 05:52 07/02/17 05:52 Test 07/01/17 14:04 07/01/17 17:21 07/01/17 21:39 07/01/17 22:39 Bedside Glucose 184 mg/dl (70-90) 165 mg/dl (70-90) 119 mg/dl (70-90) 123 mg/dl (70-90) Test 07/02/17 03:03 07/02/17 05:52 07/02/17 07:56 Bedside Glucose 262 mg/dl (70-90) 209 mg/dl (70-90) Red Blood Count 2.43 M/uL (4.2-5.4) Mean Corpuscular Volume 105.8 fL (80-100) Mean Corpuscular Hemoglobin 32.5 pg (25-34) Mean Corpuscular Hemoglobin Concent 30.7 g/dl (32-36) RDW Standard Deviation 84.7 fL (36.4-46.3) RDW Coefficient of Variation 21.9 % (11.5-14.5) Mean Platelet Volume 9.2 fL (7.4-10.4) Anion Gap 5.0 mmol/L (3-11) Est Creatinine Clear Calc Drug Dose 13.2 ml/min Estimated GFR () 12.0 Estimated GFR (Non- 10.4 BUN/Creatinine Ratio 9.3 (10-20) Estimated Average Glucose 163 mg/dl Hemoglobin A1c 7.3 % (4.5-5.6) Calcium Level 8.4 mg/dl (8.5-10.1) Random Vancomycin Level 17.1 mcg/ml Allergies Coded Allergies: Hydralazine (Verified Allergy, Intermediate, rash, 06/29/17) Isosorbide Nitrate (Verified Allergy, Unknown, ITCHING, 06/29/17) EZE Inhibitors (Verified Adverse Reaction, Unknown, DUE TO CKD, 06/29/17) Medications Current Inpatient Medications Medications (Trade) Dose Ordered Sig/Tu Route Start Time Stop Time Status Last Admin Dose Admin Vancomycin HCl (Consult) 1 ea UD PRN N/A 07/01/17 12:30 07/03/17 12:29 Calcium Acetate (Phoslo Cap) 667 mg QPM PO 07/01/17 21:00 07/31/17 20:59 07/01/17 21:14 667 MG Carvedilol (Coreg Tab) 25 mg QAM PO 07/02/17 09:00 08/01/17 08:59 Tiotropium [place] (Spiriva Handihaler Inhaler) 1 puff DAILY INH 07/02/17 09:00 08/01/17 08:59 07/02/17 08:27 1 PUFF Vitamin B Complex/ Vit C/Folic Acid (Nephrocaps) 1 cap QAM PO 07/02/17 09:00 08/01/17 08:59 07/02/17 08:30 1 CAP Miscellaneous Medication (No Nsaids) 1 ea UD N/A 07/01/17 14:00 07/31/17 13:59 Oxycodone HCl (Roxicodone Immediate Rel Tab) 1-2 TABS FOR PAIN 1 TABLET ... Q4H PRN PO 07/01/17 14:00 07/15/17 13:59 07/02/17 06:16 10 MG Acetaminophen (Tylenol Tab) 1,000 mg Q8 PO 07/01/17 15:45 07/31/17 15:44 07/02/17 06:15 1,000 MG Magnesium Hydroxide (Milk Of Magnesia Susp) 30 ml Q6H PRN PO 07/01/17 14:00 07/31/17 13:59 Bisacodyl (Dulcolax Supp) 10 mg DAILY PRN MD 07/01/17 14:00 07/31/17 13:59 Sodium Biphosphate/ Sodium Phosphate (Fleet Enema) 132 ml DAILY PRN MD 07/01/17 14:00 07/31/17 13:59 Senna (Senokot Tab) 17.2 mg HS PO 07/01/17 21:00 07/31/17 20:59 07/01/17 21:14 17.2 MG Docusate Sodium (coLACE CAP) 100 mg BID PO 07/01/17 21:00 07/31/17 20:59 07/02/17 08:28 100 MG Diphenhydramine HCl (Benadryl Cap) 25 mg Q8H PRN PO 07/01/17 14:00 07/31/17 13:59 Al Hydrox/Mg Hydrox/Simethicone (Maalox Max Susp) 15 ml Q4H PRN PO 07/01/17 14:00 07/31/17 13:59 Zolpidem Tartrate (Ambien Tab) 5 mg HSZ PRN PO 07/01/17 14:00 07/31/17 13:59 Multivitamins (Multivitamin Tab) 1 tab QAM PO 07/02/17 09:00 08/01/17 08:59 07/02/17 08:29 1 TAB Ondansetron HCl (Zofran Inj) 4 mg Q6H PRN IV 07/01/17 14:00 07/31/17 13:59 07/01/17 22:50 4 MG Pantoprazole Sodium (Protonix Tab) 40 mg QAM PO 07/02/17 09:00 08/01/17 08:59 07/02/17 08:30 40 MG Aspirin (Ecotrin Tab) 81 mg Q12 PO 07/01/17 21:00 07/31/17 20:59 07/02/17 08:29 81 MG Miscellaneous Information (Consult Glycemic Management Pharmacy) 1 ea UD PRN N/A 07/01/17 14:05 07/31/17 14:04 Glucose (Glucose 40% Gel) 15-30 GRAMS 15 GRAMS... UD PRN PO 07/01/17 14:30 07/31/17 14:29 Glucose (Glucose Chew Tab) 4-8 Tablets 4 Tabl... UD PRN PO 07/01/17 14:30 07/31/17 14:29 Dextrose (Dextrose 50% 50ML Syringe) 25-50ML OF 50% DW IV FOR... UD PRN IV 07/01/17 14:30 07/31/17 14:29 Glucagon (Glucagon Inj) 1 mg UD PRN SQ 07/01/17 14:30 07/31/17 14:29 Insulin Glargine (Lantus Solostar Pen) 15 units BID SC 07/01/17 21:00 07/31/17 20:59 07/02/17 08:39 15 UNITS Insulin Aspart (novoLOG ASPART) SLIDING SCALE ACHS SC 07/01/17 16:00 07/31/17 15:59 07/02/17 08:38 18 UNITS Miscellaneous (Iv Fluids Completed) 1 ea PRN PRN N/A 07/01/17 15:00 07/01/18 14:59 Hydromorphone HCl (Dilaudid Inj) 0.5 mg Q4 PRN IV 07/01/17 20:30 07/15/17 20:29 Hydromorphone HCl (Dilaudid Inj) 1 mg Q4 PRN IV 07/01/17 20:30 07/15/17 20:29 07/01/17 22:50 1 MG Mometasone Furoate/ Formoterol Fumar (Dulera) 2 ea BID INH 07/02/17 09:00 08/01/17 08:59 07/02/17 08:26 2 EA Promethazine HCl 12.5 mg/Sodium Chloride 50.5 ml @ 204 mls/hr Q6H PRN IV 07/02/17 03:15 08/01/17 03:14 07/02/17 03:16 204 MLS/HR Vancomycin HCl 750 mg/Sodium Chloride 265 ml @ 125 mls/hr TODAY@1500 ONCE IV 07/02/17 15:00 07/02/17 17:07 Epoetin [place] (Procrit Inj) 10,000 units TODAY@0930 IV 07/02/17 09:30 07/02/17 13:59 Impression (1) ESRD (end stage renal disease) on dialysis (2) Osteomyelitis (3) Ankle fracture, right (4) DIAB MANJIT WO COMPL, TYPE II OR UNSPEC TYPE, NOT UNCNTRLD (5) HYPERTENSION NOS (6) Obstructive sleep apnea Recommendations END STAGE RENAL DISEASE: -- HD today according to chronic outpatient orders -- Protect L arm AVF -- Heplock IVF HYPERTENSION: -- Blood pressure is well controlled. Continue Carvedilol ANEMIA: -- Hgb 7.9. Patient is asymptomatic. Will provide VITALY w/ HD -- Monitor H&H. Recommend transfusion for Hgb < 7.5 due to h/o ASCVD ID: -- Patient has completed 6 weeks Zyvox for osteomyelitis of her R 5th toe -- Patient is currently on po Cipro for UTI
--- NOTE | 2017-07-02 13:02 | Pharmacy Progress Note ---
Pharmacy Glycemic Short Note 2 Date of Service Jul 02, 2017. ASSESSMENT: * BSGs have ranged from 123-262 mg/dL over the past 24 hours * Her fasting was elevated but I did not want to make changes to her AM Lantus dose since she was getting dialysis today and she is typically somewhat brittle * Pre-lunch BSG has improved but remains above goal * Will plan to provide a "sliding scale" of Lantus starting tonight * Current CF/CR fairly aggressive and have worked well before so I will continue with both PLAN FOR INPATIENT GLYCEMIC CONTROL: * Basal insulin * Lantus 15 units SQ BID (17 units for BSG > 180) * Bolus insulin * NovoLog per scale ACHS or Q6hrs while NPO * Goal Range: Low 110 mg/dL - High 140 mg/dL * Correction Factor: 20 mg/dL/unit * Nutritional / Prandial insulin per carb ratio of 1 unit per 6 grams CHO consumed PLAN FOR DISCHARGE: * Patient's A1c = 7.4% on 06/30/17. * However, this result is likely somewhat unreliable in ESRD patients d/t interactions between the A1c analyzing technique and high levels of urea in ESRD , reduced RBC life span, iron deficiency anemia, and EPO administration. HbA1c > 7.5% in ESRD patient may overestimate the extent of hyperglycemia in ESRD patients * Continue outpatient basal/bolus regimen upon discharge
--- NOTE | 2017-07-02 14:33 | Progress Note ---
Subjective Date of Service: Jul 02, 2017. Subjective Pt evaluation today including: conversation w/ patient Pt is doing well post-op. States her foot pain is manageable. Has been tolerating PO without issue. Currently having HD and no issues. No chest pain or SOB. States she does not wear O2 at home. Pt denies fever, abd pain, n/v/c/ d, LE pain or swelling. Problem List Medical Problems: (1) Bronchitis Status: Acute (2) CHF (congestive heart failure) Status: Acute (3) CHF exacerbation Status: Acute (4) COPD exacerbation Status: Acute (5) COPD exacerbation Status: Acute (6) End stage renal disease Status: Acute (7) Hyperkalemia Status: Acute (8) Hypoxia Status: Acute (9) Hypoxia Status: Acute (10) Hypoxia Status: Acute (11) Osteomyelitis Status: Acute (12) Pulmonary edema Status: Acute (13) Renal failure Status: Acute Review of Systems All Other Systems: Reviewed and Negative Objective Vital Signs Date Time Temp Pulse Resp B/P (MAP) Pulse Ox O2 Delivery O2 Flow Rate FiO2 07/02/17 14:00 66 110/50 07/02/17 13:45 62 108/50 07/02/17 13:30 60 108/52 07/02/17 13:15 62 111/52 07/02/17 13:00 62 122/53 07/02/17 12:45 65 129/96 07/02/17 12:30 71 128/57 07/02/17 12:15 65 118/51 07/02/17 12:00 65 117/60 07/02/17 11:45 61 118/58 07/02/17 11:36 68 148/58 07/02/17 11:30 36.6 125/57 (79) 07/02/17 07:25 Nasal Cannula 3.0 07/02/17 06:59 36.6 70 18 128/72 (90) 100 Nasal Cannula 2.0 07/02/17 03:08 95 Nasal Cannula 3.0 07/02/17 03:05 36.6 78 18 154/77 (102) 76 Room Air 07/01/17 23:59 Nasal Cannula 3.0 07/01/17 23:05 93 Nasal Cannula 3.0 07/01/17 23:04 81 Nasal Cannula 2.0 07/01/17 23:03 36.7 86 24 148/75 (99) 68 Room Air 07/01/17 22:33 82 129/82 (98) 07/01/17 19:13 36.8 74 18 131/72 (91) 98 Nasal Cannula 2.0 07/01/17 18:00 37.2 75 17 129/66 (87) 99 Nasal Cannula 2.0 07/01/17 16:45 36.4 67 18 132/75 (94) 99 Nasal Cannula 2.0 07/01/17 16:10 Nasal Cannula 2.0 07/01/17 16:08 Nasal Cannula 2.0 07/01/17 15:05 36.2 65 16 125/65 95 Nasal Cannula 2 07/01/17 14:55 36.2 64 16 129/60 94 Nasal Cannula 2 07/01/17 14:45 36.2 64 16 120/66 96 Nasal Cannula 2 07/01/17 14:35 36.2 65 16 123/56 95 Nasal Cannula 2 Physical Exam General Appearance: no apparent distress, + obese Eyes: normal inspection, EOMI ENT: hearing grossly normal Neck: supple Respiratory/Chest: normal breath sounds, no respiratory distress Cardiovascular: regular rate, rhythm, no edema Abdomen: non tender, soft Extremities: normal inspection, no pedal edema Neurologic/Psychiatric: alert, normal mood/affect Skin: normal color, warm/dry Laboratory Results Last 24 Hours Test 07/01/17 17:21 07/01/17 21:39 07/01/17 22:39 07/02/17 03:03 Bedside Glucose 165 mg/dl 119 mg/dl 123 mg/dl 262 mg/dl Test 07/02/17 05:52 07/02/17 07:56 07/02/17 12:41 White Blood Count 6.09 K/uL Red Blood Count 2.43 M/uL Hemoglobin 7.9 g/dL Hematocrit 25.7 % Mean Corpuscular Volume 105.8 fL Mean Corpuscular Hemoglobin 32.5 pg Mean Corpuscular Hemoglobin Concent 30.7 g/dl RDW Standard Deviation 84.7 fL RDW Coefficient of Variation 21.9 % Platelet Count 164 K/uL Mean Platelet Volume 9.2 fL Sodium Level 135 mmol/L Potassium Level 5.1 mmol/L Chloride Level 99 mmol/L Carbon Dioxide Level 31 mmol/L Anion Gap 5.0 mmol/L Blood Urea Nitrogen 39 mg/dl Creatinine 4.14 mg/dl Est Creatinine Clear Calc Drug Dose 13.2 ml/min Estimated GFR () 12.0 Estimated GFR (Non- 10.4 BUN/Creatinine Ratio 9.3 Random Glucose 242 mg/dl Estimated Average Glucose 163 mg/dl Hemoglobin A1c 7.3 % Calcium Level 8.4 mg/dl Random Vancomycin Level 17.1 mcg/ml Bedside Glucose 209 mg/dl 183 mg/dl Assessment and Plan 66-year-old insulin requiring diabetic female with end-stage renal disease status post orthopedic repair of R tibial fracture End-stage renal disease--continued HD For insulin she is currently on basal bolus insulin will continue with every before meals at bedtime Accu-Cheks chronic systolic heart failure and ASCVD --continue on carvedilol DVT proph per surgical preferenc--aspirin BID d/c O2 and monitor as pt states she does not use at baseline
[2017-07-02] MEDS ORDERED: VANCOMYCIN INJ 750 MG in SODIUM CHLORIDE 0.9% 250ML 250 ML IV ONE (15:00)
[2017-07-02] MEDS: CARVEDILOL 25 MG TAB PO SCH (16:32)
[2017-07-02] MEDS: ONDANSETRON INJ 2 MG/ML 2 ML VIAL IV PRN (18:09)
[2017-07-02] MEDS ORDERED: METOCLOPRAMIDE HCL INJ 5 MG/ML 2 ML VIAL IV PRN (21:15)
[2017-07-02] MEDS: CALCIUM ACETATE 667MG GELCAP PO SCH (21:58)
[2017-07-02] MEDS: SENNA 8.6 MG TAB PO SCH (21:59)
[2017-07-03] VITALS (14 sets, daily range): BP systolic 107–132; BP diastolic 56–76; PULSE 58–81; TEMP 36.5–37; O2SAT 82–100
[2017-07-03] MEDS: ACETAMINOPHEN 500 MG TAB PO SCH ×3 (05:48→21:51)
[2017-07-03 06:30] LABS: MEAN CELL VOLUME 106.5 fL (80-100); MEAN CORPUSCULAR HEMOGLOBIN 32.9 pg (25-34); MEAN CORPUSCULAR HGB CONC 30.9 g/dl (32-36); MEAN PLATELET VOLUME 8.9 fL (7.4-10.4); PLATELET COUNT 137 K/uL (130-400); RED BLOOD COUNT 2.16 M/uL (4.2-5.4); WHITE BLOOD COUNT 4.83 K/uL (4.8-10.8)
[2017-07-03 07:09] LABS: BUN/CREATININE RATIO 7.5 (10-20); CALCIUM 7.9 mg/dl (8.5-10.1); CREATININE 3.36 mg/dl (0.60-1.20); POTASSIUM 4.2 mmol/L (3.5-5.1)
[2017-07-03 07:19] LABS: FERRITIN 1721.9 ng/ml (8.0-388.0)
[2017-07-03] MEDS: PATIENT'S OWN MOMETASONE FUROATE-FORMOTEROL (DULERA) 200mcg/5mcg per inh INH SCH ×2 (08:48→21:50)
[2017-07-03] MEDS: TIOTROPIUM BROMIDE 5 PUFF/90 MCG INH INH SCH (08:49)
[2017-07-03] MEDS: DOCUSATE SODIUM 100 MG CAP PO SCH ×2 (08:50→21:50)
[2017-07-03] MEDS: ASPIRIN 81 MG ECTAB PO SCH ×2 (08:51→21:50)
[2017-07-03] MEDS: PANTOprazole SOD 40 MG TAB PO SCH (08:51)
[2017-07-03] MEDS: MULTIVITAMIN TAB PO SCH (08:51)
[2017-07-03] MEDS: NEPHROCAPS PO SCH (08:52)
[2017-07-03] MEDS: INSULIN ASPART 100 UNITS/ML 3 ML PEN SC SCH ×4 (08:59→21:00)
[2017-07-03] MEDS: INSULIN GLARGINE SOLOSTAR 100 UNITS/ML 3 ML PEN SC SCH (09:01)
--- NOTE | 2017-07-03 10:58 | Nephrology Progress Note ---
Nephrology Progress Note Date of Service Jul 03, 2017. Chief Complaint Inpatient dialysis for this patient w/ ESRD Subjective Mrs. Santiago was dialyzed for only 3.5 hours yesterday. Her treatment was cut 30 minutes short due to SBP 80's and dizziness. Her symptoms resolved following reinfusion of her blood. This morning her Hgb was < 7.5. Primary service has ordered a blood transfusion. Review of Systems Constitutional: No fever Cardiovascular: No chest pain Respiratory: No dyspnea at rest Abdomen: No pain, No nausea, No vomiting Extremities: No leg edema A complete review of systems was performed. Pertinent positives are noted above. All other systems are negative. Vital Signs Last 8 Hrs Date Time Temp Pulse Resp B/P (MAP) Pulse Ox O2 Delivery O2 Flow Rate FiO2 07/03/17 08:58 98 Nasal Cannula 2.0 07/03/17 07:45 37.0 66 14 119/59 (79) 98 Nasal Cannula 2.0 07/03/17 07:25 Nasal Cannula 2.0 Last Recorded Weight Weight (Kilograms): 88.000 Physical Exam General Appearance: no apparent distress Head: normocephalic, atraumatic Eyes: PERRL, EOMI Neck: no adenopathy Respiratory/Chest: lungs clear Cardiovascular: regular rate, rhythm Abdomen/GI: normal bowel sounds, non tender, soft Extremities/Musculoskelatal: no pedal edema, + pertinent finding (AVF + bruit) Neurologic/Psych: alert, oriented x 3 Family History FH: HTN (hypertension) Negative for CKD / ESRD Social History Smoking Status: Never smoker Drug Use: none Marital Status: Housing Status: lives with family Occupation: retired Patient is . She has 5 sons. One suffered TBI from ATV roll over resulting in left hemiparesis. She resides in [place], [place] near [place]. She denies tobacco or alcohol use. Laboratory Results Past 24 Hours 07/03/17 06:13 07/03/17 06:13 Test 07/02/17 12:41 07/02/17 17:08 07/02/17 20:37 07/03/17 06:13 Bedside Glucose 183 mg/dl (70-90) 128 mg/dl (70-90) 183 mg/dl (70-90) Red Blood Count 2.16 M/uL (4.2-5.4) Mean Corpuscular Volume 106.5 fL (80-100) Mean Corpuscular Hemoglobin 32.9 pg (25-34) Mean Corpuscular Hemoglobin Concent 30.9 g/dl (32-36) RDW Standard Deviation 85.1 fL (36.4-46.3) RDW Coefficient of Variation 22.0 % (11.5-14.5) Mean Platelet Volume 8.9 fL (7.4-10.4) Anion Gap 5.0 mmol/L (3-11) Est Creatinine Clear Calc Drug Dose 16.5 ml/min Estimated GFR () 15.5 Estimated GFR (Non- 13.4 BUN/Creatinine Ratio 7.5 (10-20) Calcium Level 7.9 mg/dl (8.5-10.1) Iron Level 37 mcg/dl (35-150) Total Iron Binding Capacity 158 mcg/dl (250-450) Ferritin 1721.9 ng/ml (8.0-388.0) Test 07/03/17 07:32 Bedside Glucose 115 mg/dl (70-90) Allergies Coded Allergies: Hydralazine (Verified Allergy, Intermediate, rash, 06/29/17) Isosorbide Nitrate (Verified Allergy, Unknown, ITCHING, 06/29/17) EZE Inhibitors (Verified Adverse Reaction, Unknown, DUE TO CKD, 06/29/17) Medications Current Inpatient Medications Medications (Trade) Dose Ordered Sig/Tu Route Start Time Stop Time Status Last Admin Dose Admin Calcium Acetate (Phoslo Cap) 667 mg QPM PO 07/01/17 21:00 07/31/17 20:59 07/02/17 21:58 667 MG Carvedilol (Coreg Tab) 25 mg QAM PO 07/02/17 09:00 08/01/17 08:59 07/02/17 16:32 25 MG Tiotropium [place] (Spiriva Handihaler Inhaler) 1 puff DAILY INH 07/02/17 09:00 08/01/17 08:59 07/03/17 08:49 1 PUFF Vitamin B Complex/ Vit C/Folic Acid (Nephrocaps) 1 cap QAM PO 07/02/17 09:00 08/01/17 08:59 07/03/17 08:52 1 CAP Miscellaneous Medication (No Nsaids) 1 ea UD N/A 07/01/17 14:00 07/31/17 13:59 Oxycodone HCl (Roxicodone Immediate Rel Tab) 1-2 TABS FOR PAIN 1 TABLET ... Q4H PRN PO 07/01/17 14:00 07/15/17 13:59 07/02/17 06:16 10 MG Acetaminophen (Tylenol Tab) 1,000 mg Q8 PO 07/01/17 15:45 07/31/17 15:44 07/03/17 05:48 1,000 MG Magnesium Hydroxide (Milk Of Magnesia Susp) 30 ml Q6H PRN PO 07/01/17 14:00 07/31/17 13:59 Bisacodyl (Dulcolax Supp) 10 mg DAILY PRN MA 07/01/17 14:00 07/31/17 13:59 Sodium Biphosphate/ Sodium Phosphate (Fleet Enema) 132 ml DAILY PRN MA 07/01/17 14:00 07/31/17 13:59 Senna (Senokot Tab) 17.2 mg HS PO 07/01/17 21:00 07/31/17 20:59 07/02/17 21:59 17.2 MG Docusate Sodium (coLACE CAP) 100 mg BID PO 07/01/17 21:00 07/31/17 20:59 07/03/17 08:50 100 MG Diphenhydramine HCl (Benadryl Cap) 25 mg Q8H PRN PO 07/01/17 14:00 07/31/17 13:59 Al Hydrox/Mg Hydrox/Simethicone (Maalox Max Susp) 15 ml Q4H PRN PO 07/01/17 14:00 07/31/17 13:59 Zolpidem Tartrate (Ambien Tab) 5 mg HSZ PRN PO 07/01/17 14:00 07/31/17 13:59 Multivitamins (Multivitamin Tab) 1 tab QAM PO 07/02/17 09:00 08/01/17 08:59 07/03/17 08:51 1 TAB Ondansetron HCl (Zofran Inj) 4 mg Q6H PRN IV 07/01/17 14:00 07/31/17 13:59 07/02/17 18:09 4 MG Pantoprazole Sodium (Protonix Tab) 40 mg QAM PO 07/02/17 09:00 08/01/17 08:59 07/03/17 08:51 40 MG Aspirin (Ecotrin Tab) 81 mg Q12 PO 07/01/17 21:00 07/31/17 20:59 07/03/17 08:51 81 MG Miscellaneous Information (Consult Glycemic Management Pharmacy) 1 ea UD PRN N/A 07/01/17 14:05 07/31/17 14:04 Glucose (Glucose 40% Gel) 15-30 GRAMS 15 GRAMS... UD PRN PO 07/01/17 14:30 07/31/17 14:29 Glucose (Glucose Chew Tab) 4-8 Tablets 4 Tabl... UD PRN PO 07/01/17 14:30 07/31/17 14:29 Dextrose (Dextrose 50% 50ML Syringe) 25-50ML OF 50% DW IV FOR... UD PRN IV 07/01/17 14:30 07/31/17 14:29 Glucagon (Glucagon Inj) 1 mg UD PRN SQ 07/01/17 14:30 07/31/17 14:29 Insulin Aspart (novoLOG ASPART) SLIDING SCALE ACHS SC 07/01/17 16:00 07/31/17 15:59 07/03/17 08:59 8 UNITS Miscellaneous (Iv Fluids Completed) 1 ea PRN PRN N/A 07/01/17 15:00 07/01/18 14:59 Hydromorphone HCl (Dilaudid Inj) 0.5 mg Q4 PRN IV 07/01/17 20:30 07/15/17 20:29 Hydromorphone HCl (Dilaudid Inj) 1 mg Q4 PRN IV 07/01/17 20:30 07/15/17 20:29 07/01/17 22:50 1 MG Mometasone Furoate/ Formoterol Fumar (Dulera) 2 ea BID INH 07/02/17 09:00 08/01/17 08:59 07/03/17 08:48 2 EA Promethazine HCl 12.5 mg/Sodium Chloride 50.5 ml @ 204 mls/hr Q6H PRN IV 07/02/17 03:15 08/01/17 03:14 07/02/17 03:16 204 MLS/HR Insulin Glargine (Lantus Solostar Pen) SEE PROTOCOL TEXT BID SC 07/02/17 21:00 08/01/17 20:59 07/03/17 09:01 15 UNITS Metoclopramide HCl (Reglan Inj) 10 mg Q6H PRN IV 07/02/17 21:15 08/01/17 21:14 Impression (1) ESRD (end stage renal disease) on dialysis (2) Osteomyelitis (3) Ankle fracture, right (4) DIAB MANJIT WO COMPL, TYPE II OR UNSPEC TYPE, NOT UNCNTRLD (5) HYPERTENSION NOS (6) Obstructive sleep apnea Recommendations END STAGE RENAL DISEASE: -- Volume status and electrolyte balance are acceptable at this time. Will schedule HD for tomorrow. -- Protect L arm AVF -- Heplock IVF HYPERTENSION: -- Blood pressure is well controlled. Continue Carvedilol ANEMIA: -- Agree with plans for blood transfusion -- Monitor serial PRP ID: -- Patient has completed 6 weeks Zyvox for osteomyelitis of her R 5th toe -- Patient is currently on po Cipro for UTI
[2017-07-03] MEDS ORDERED: HEPARIN SOD (PORCINE) 1000 UNIT/ML 10 ML VIAL IV SCH (11:00)
[2017-07-03] MEDS: CARVEDILOL 25 MG TAB PO SCH (11:32)
--- NOTE | 2017-07-03 12:19 | Orthopedic Progress Note ---
Orthopedic Progress Note Date of Service Jul 03, 2017. Subjective Post OP Day: 2 Reports: feeling well, pain controlled w PO medications, Denies: complaints, chest pain, SOB, nausea / vomiting, light headedness, calf pain Objective calves soft nontender, N/V intact, splint C/D/I, capillary refill less than 2 sec., A&O x3, toes mobile Date Time Temp Pulse Resp B/P (MAP) Pulse Ox O2 Delivery O2 Flow Rate FiO2 07/03/17 11:30 66 116/72 (87) 07/03/17 10:56 119/67 (84) 07/03/17 08:58 98 Nasal Cannula 2.0 07/03/17 07:45 37.0 66 14 119/59 (79) 98 Nasal Cannula 2.0 07/03/17 07:25 Nasal Cannula 2.0 07/02/17 23:45 Nasal Cannula 2.0 07/02/17 22:52 36.8 75 16 115/68 (84) 96 Nasal Cannula 2.0 07/02/17 18:08 75 127/71 (89) 07/02/17 16:20 Nasal Cannula 2.0 07/02/17 16:11 36.5 78 18 116/68 (84) 91 Nasal Cannula 3.0 07/02/17 15:35 37.1 70 88/52 (64) 07/02/17 15:03 69 114/62 07/02/17 14:45 70 112/55 07/02/17 14:30 68 102/52 07/02/17 14:15 68 110/55 07/02/17 14:00 66 110/50 07/02/17 13:45 62 108/50 07/02/17 13:30 60 108/52 07/02/17 13:15 62 111/52 07/02/17 13:00 62 122/53 07/02/17 12:45 65 129/96 07/02/17 12:30 71 128/57 07/02/17 12:15 65 118/51 Laboratory Results 24 Hours: Test 07/03/17 06:13 Hematocrit 23.0 % Hemoglobin 7.1 g/dL Assessment & Plan Assessment: POD #2 1. Open reduction internal fixation, right medial malleolus nonunion with autografting. 2. Calcaneal autograft harvest Chronic anemia, worsened post op Plan: Dialysis today. PT/OT--NWB RLE at all times. D/C planning--Patient is receiving one unit of PRBC today. She is going to stay tonight to have dialysis again tomorrow. Then, the plan will be to be d/c'd home as long as she continues to remain NWB on the RLE. Inhouse Planning Pain Management: PO Tylenol, Oxy IR DVT Prophylaxis: ALENA Armijo Discharge Planning Discharge Planning: home Pain Management: Percocet DVT Prophylaxis: ASA (Patient does not want home health and does not want to go to a SNF for a rehab stay.)
--- NOTE | 2017-07-03 13:32 | Pharmacy Progress Note ---
Pharmacy Glycemic Short Note 2 Date of Service Jul 03, 2017. OUTPATIENT ANTIDIABETIC REGIMEN: * Lantus 15 units SQ BID * NovoLog with meals based on scale ASSESSMENT: * Pt has received 61 units of insulin over the past 24 hrs * 32 units of basal * 29 units of prandial/correctional * AM fasting in range @ 115 mg/dl this morning with current basal insulin dosing. No changes needed to Lantus * Post-prandial BSGs elevated indicating more CR insulin needed * PO intake is adequate PLAN FOR INPATIENT GLYCEMIC CONTROL: * Basal insulin * Lantus 15-17 units SQ BID based on BSG * Bolus insulin * NovoLog per scale ACHS or Q6hrs while NPO * Goal Range: Low 110 mg/dL - High 140 mg/dL * Correction Factor: 20 mg/dL/unit * Nutritional / Prandial insulin per carb ratio of 1 unit per 5 grams CHO consumed PLAN FOR DISCHARGE: * Patient's A1c = 7.4% on 06/30/17. * However, this result is likely somewhat unreliable in ESRD patients d/t interactions between the A1c analyzing technique and high levels of urea in ESRD , reduced RBC life span, iron deficiency anemia, and EPO administration. HbA1c > 7.5% in ESRD patient may overestimate the extent of hyperglycemia in ESRD patients * Continue outpatient basal/bolus regimen upon discharge
--- NOTE | 2017-07-03 14:26 | Progress Note ---
Subjective Date of Service: Jul 03, 2017. Subjective Pt evaluation today including: conversation w/ patient Pt continues to do well. Tolerating PO without issue. Does feel more tired than usual. Pt denies fever, SOB, chest pain, abd pain, n/v/c/d, LE pain or swelling. Problem List Medical Problems: (1) Bronchitis Status: Acute (2) CHF (congestive heart failure) Status: Acute (3) CHF exacerbation Status: Acute (4) COPD exacerbation Status: Acute (5) COPD exacerbation Status: Acute (6) End stage renal disease Status: Acute (7) Hyperkalemia Status: Acute (8) Hypoxia Status: Acute (9) Hypoxia Status: Acute (10) Hypoxia Status: Acute (11) Osteomyelitis Status: Acute (12) Pulmonary edema Status: Acute (13) Renal failure Status: Acute Review of Systems All Other Systems: Reviewed and Negative Objective Vital Signs Date Time Temp Pulse Resp B/P (MAP) Pulse Ox O2 Delivery O2 Flow Rate FiO2 07/03/17 13:50 36.6 62 14 109/56 99 2.0 07/03/17 13:20 36.9 58 14 119/76 100 2.0 07/03/17 12:50 36.5 65 16 120/64 99 2.0 07/03/17 12:35 36.7 69 16 114/70 99 2.0 07/03/17 12:24 36.5 67 16 129/69 100 07/03/17 12:15 36.5 67 16 129/69 (89) 100 Nasal Cannula 2.0 07/03/17 11:30 66 116/72 (87) 07/03/17 10:56 119/67 (84) 07/03/17 09:23 81 82 07/03/17 08:58 98 Nasal Cannula 2.0 07/03/17 07:45 37.0 66 14 119/59 (79) 98 Nasal Cannula 2.0 07/03/17 07:25 Nasal Cannula 2.0 07/02/17 23:45 Nasal Cannula 2.0 07/02/17 22:52 36.8 75 16 115/68 (84) 96 Nasal Cannula 2.0 07/02/17 18:08 75 127/71 (89) 07/02/17 16:20 Nasal Cannula 2.0 07/02/17 16:11 36.5 78 18 116/68 (84) 91 Nasal Cannula 3.0 07/02/17 15:35 37.1 70 88/52 (64) 07/02/17 15:03 69 114/62 07/02/17 14:45 70 112/55 07/02/17 14:30 68 102/52 Physical Exam Comments: General Appearance: no apparent distress, + obese Eyes: normal inspection, EOMI Respiratory/Chest: normal breath sounds, no respiratory distress Cardiovascular: regular rate, rhythm, no edema Abdomen: non tender, soft Extremities: normal inspection, no pedal edema Neurologic/Psychiatric: alert, normal mood/affect Skin: normal color, warm/dry Laboratory Results Last 24 Hours Test 07/02/17 17:08 07/02/17 20:37 07/03/17 06:13 07/03/17 07:32 Bedside Glucose 128 mg/dl 183 mg/dl 115 mg/dl White Blood Count 4.83 K/uL Red Blood Count 2.16 M/uL Hemoglobin 7.1 g/dL Hematocrit 23.0 % Mean Corpuscular Volume 106.5 fL Mean Corpuscular Hemoglobin 32.9 pg Mean Corpuscular Hemoglobin Concent 30.9 g/dl RDW Standard Deviation 85.1 fL RDW Coefficient of Variation 22.0 % Platelet Count 137 K/uL Mean Platelet Volume 8.9 fL Sodium Level 136 mmol/L Potassium Level 4.2 mmol/L Chloride Level 103 mmol/L Carbon Dioxide Level 28 mmol/L Anion Gap 5.0 mmol/L Blood Urea Nitrogen 25 mg/dl Creatinine 3.36 mg/dl Est Creatinine Clear Calc Drug Dose 16.5 ml/min Estimated GFR () 15.5 Estimated GFR (Non- 13.4 BUN/Creatinine Ratio 7.5 Random Glucose 103 mg/dl Calcium Level 7.9 mg/dl Iron Level 37 mcg/dl Total Iron Binding Capacity 158 mcg/dl Ferritin 1721.9 ng/ml Test 07/03/17 11:55 Bedside Glucose 202 mg/dl Assessment and Plan 66-year-old insulin requiring diabetic female with end-stage renal disease status post orthopedic repair of R tibial fracture Hb with continued drop post-op 2 units PRBC, 1 today and the 2nd tomorrow with HD per renal End-stage renal disease--continued HD For insulin she is currently on basal bolus insulin will continue with every before meals at bedtime Accu-Cheks chronic systolic heart failure and ASCVD --continue on carvedilol DVT proph per surgical preferenc--aspirin BID Pt apparently does use O2 at baseline, resumed
[2017-07-03] MEDS ORDERED: OXYC-57 PO (15:28)
[2017-07-03] MEDS ORDERED: PROM25TA9 PO (15:28)
[2017-07-03] MEDS ORDERED: ASPEC81 PO (15:28)
--- NOTE | 2017-07-03 15:29 | Discharge Instructions ---
Discharge Instructions Date of Service Jul 03, 2017. 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 Instructions / Follow-Up Instructions / Follow-Up ACTIVITY RECOMMENDATIONS: Limitations: No weight bearing to affected limb at all times. SPECIAL CARE INSTRUCTIONS: * Some drainage onto the dressing is normal and is no cause for alarm. * Some swelling is natural especially after walking. * When resting, keep your foot elevated above the level of your heart. * Call [facility] if you notice: -Increased drainage -Fever over 101 degrees F -Severe constant pain BANDAGE: * Leave bandage/cast in place unless otherwise directed. * Keep bandage/cast dry at all times. FOLLOW UP VISIT WITH DR. MCCLENDON If appointment is not already scheduled: Please call [facility] after you get home today to schedule a follow-up appointment for [address] Mcclendon at . Current Hospital Diet Patient's current hospital diet: Diabetes Type 2 Diet Discharge Diet Recommended Diet: Diabetes Type 2 Diet Procedures Procedures Performed: 1. Right Ankle Medial Malleolus Non-Union Fracture Open Reduction Internal Fixation with Autograft; 2. Right Calcaneal Autograft Pitman Pending Studies Studies pending at discharge: no Laboratory Results Hemoglobin A1c Test 07/02/17 05:52 Range/Units Estimated Average Glucose 163 mg/dl Hemoglobin A1c 7.3 H 4.5-5.6 % Medical Emergencies . Who to Call and When: Medical Emergencies: If at any time you feel your situation is an emergency, please call 911 immediately. . Non-Emergent Contact Non-Emergency issues call your: Surgeon Call Non-Emergent contact if: temperature is above 101, your pain is not controlled, your pain is worsening . "Provider Documentation" section prepared by Nakul Christianson. . VTE Core Measure Inpt VTE Proph given/why not?: Other Anticoagulation (Aspirin), T.E.D. Stockings, SCD's
[2017-07-03] MEDS: CALCIUM ACETATE 667MG GELCAP PO SCH (21:50)
[2017-07-03] MEDS: SENNA 8.6 MG TAB PO SCH (21:51)
[2017-07-03] MEDS ORDERED: INSULIN GLARGINE SOLOSTAR 100 UNITS/ML 3 ML PEN SC SCH (22:00)
[2017-07-04] VITALS (22 sets, daily range): BP systolic 97–150; BP diastolic 46–79; PULSE 55–77; TEMP 36.5–37.3; O2SAT 93–99
[2017-07-04] MEDS ORDERED: INSULIN ASPART 100 UNITS/ML 3 ML PEN SC SCH
[2017-07-04 05:32] LABS: HEMATOCRIT 26.9 % (37-47); MEAN CELL VOLUME 102.7 fL (80-100); MEAN CORPUSCULAR HEMOGLOBIN 32.1 pg (25-34); MEAN CORPUSCULAR HGB CONC 31.2 g/dl (32-36); MEAN PLATELET VOLUME 9.4 fL (7.4-10.4); PLATELET COUNT 145 K/uL (130-400); RED BLOOD COUNT 2.62 M/uL (4.2-5.4); WHITE BLOOD COUNT 5.53 K/uL (4.8-10.8)
[2017-07-04] MEDS ORDERED: EPOETIN ALFA 10,000 UNITS/ML VIAL IV. SCH (06:00)
[2017-07-04] MEDS ORDERED: HEPARIN SOD (PORCINE) 1000 UNIT/ML 10 ML VIAL IV SCH ×2 (06:00)
[2017-07-04 06:01] LABS: BUN/CREATININE RATIO 10.3 (10-20); CALCIUM 8.4 mg/dl (8.5-10.1); CREATININE 4.07 mg/dl (0.60-1.20); POTASSIUM 4.5 mmol/L (3.5-5.1)
[2017-07-04] MEDS: ACETAMINOPHEN 500 MG TAB PO SCH ×3 (06:02→20:59)
[2017-07-04] MEDS: PATIENT'S OWN MOMETASONE FUROATE-FORMOTEROL (DULERA) 200mcg/5mcg per inh INH SCH ×2 (07:55→20:50)
[2017-07-04] MEDS: ASPIRIN 81 MG ECTAB PO SCH ×2 (07:56→20:49)
[2017-07-04] MEDS: MULTIVITAMIN TAB PO SCH (07:56)
[2017-07-04] MEDS: TIOTROPIUM BROMIDE 5 PUFF/90 MCG INH INH SCH (07:56)
[2017-07-04] MEDS: DOCUSATE SODIUM 100 MG CAP PO SCH (07:56)
[2017-07-04] MEDS: PANTOprazole SOD 40 MG TAB PO SCH (07:56)
[2017-07-04] MEDS: NEPHROCAPS PO SCH (07:56)
[2017-07-04] MEDS: CARVEDILOL 25 MG TAB PO SCH ×2 (07:57→20:50)
[2017-07-04] MEDS: INSULIN ASPART 100 UNITS/ML 3 ML PEN SC SCH ×4 (08:03→20:56)
[2017-07-04] MEDS: INSULIN GLARGINE SOLOSTAR 100 UNITS/ML 3 ML PEN SC SCH ×2 (08:05→20:57)
[2017-07-04] MEDS ORDERED: CRG25 PO (08:45)
--- NOTE | 2017-07-04 09:02 | Orthopedic Progress Note ---
Orthopedic Progress Note Date of Service Jul 04, 2017. Subjective Post OP Day: 3 Reports: feeling well, Denies: chest pain, SOB, nausea / vomiting, light headedness, calf pain Objective calves soft nontender, N/V intact, splint C/D/I, capillary refill less than 2 sec., A&O x3, toes mobile Date Time Temp Pulse Resp B/P (MAP) Pulse Ox O2 Delivery O2 Flow Rate FiO2 07/04/17 07:51 36.6 70 16 150/79 (102) 99 Nasal Cannula 2.0 07/03/17 23:55 Nasal Cannula 2.0 07/03/17 22:48 36.7 70 18 132/62 (85) 98 Nasal Cannula 2.0 07/03/17 15:40 Nasal Cannula 1.5 Humidified Oxygen 07/03/17 14:50 36.7 62 16 107/61 97 07/03/17 14:49 36.8 60 16 107/67 100 1.5 07/03/17 13:50 36.6 62 14 109/56 99 2.0 07/03/17 13:20 36.9 58 14 119/76 100 2.0 07/03/17 12:50 36.5 65 16 120/64 99 2.0 07/03/17 12:35 36.7 69 16 114/70 99 2.0 07/03/17 12:24 36.5 67 16 129/69 100 07/03/17 12:15 36.5 67 16 129/69 (89) 100 Nasal Cannula 2.0 07/03/17 11:30 66 116/72 (87) 07/03/17 10:56 119/67 (84) 07/03/17 09:23 81 82 Laboratory Results 24 Hours: Test 07/04/17 05:15 Hematocrit 26.9 % Hemoglobin 8.4 g/dL Assessment & Plan Assessment: POD #3 1. Open reduction internal fixation, right medial malleolus nonunion with autografting. 2. Calcaneal autograft harvest Chronic anemia, worsened post op CKD- FOR DIALYSIS TODAY Plan: Dialysis today. PT/OT--NWB RLE at all times. D/C planning--Patient is receiving one unit of PRBC today. She is going to stay tonight to have dialysis again tomorrow. Then, the plan will be to be d/c'd home as long as she continues to remain NWB on the RLE. PATIENT HAS NOW DECIDED SHE'D LIKE TO GO TO SNF. WILL HAVE CM EVAL TODAY. WILL LIKELY STAY UNTIL THURSDAY SINCE SHE HAD DIALYSIS [facility]YA. Inhouse Planning Pain Management: PO Tylenol, Oxy IR DVT Prophylaxis: ALENA Armijo Discharge Planning Discharge Planning: home Pain Management: Percocet DVT Prophylaxis: ASA (Patient does not want home health and does not want to go to a SNF for a rehab stay.)
[2017-07-04] MEDS: HEPARIN SOD (PORCINE) 1000 UNIT/ML 10 ML VIAL IV SCH ×11 (09:45→14:41)
[2017-07-04] MEDS ORDERED: EPOETIN ALFA 10,000 UNITS/ML VIAL IV. ONE (10:00)
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
--- NOTE | 2017-07-04 11:31 | Hospitalist Progress Note ---
Hospitalist Progress Note Date of Service Jul 04, 2017. (Mitzi Warren PA-C) Subjective Pt evaluation today including: conversation w/ patient, physical exam, chart review, lab review, review of studies Pain: Occasional R lower leg pain PO Intake: Good Voiding: no voiding problems The patient was seen and examined this morning. Pt reports doing well other than an occasional R lower leg stabbing pain. She denies any numbness or tingling. Pt has been able to ambulate from the bed to bedside chair and commode , but has not yet been able to walk to the bathroom. She has used a scooter to help her walk in the hallways. She is leaning toward going to rehab after this admission. Pt is currently getting dialysis in her room, and being transfused 1 U PRBCs. Additional Comments: Constitutional: No fever, sweats or chills Eyes: No diplopia, no worsening or blurred vision ENT: normal hearing, no trouble swallowing Respiratory: No cough, sputum, dyspnea at rest or on exertion Cardiovascular: No chest pain, tightness or palpitations Abdomen: No pain, nausea, vomiting, diarrhea or constipation Musculoskeletal: See history of present illness, no joint pain calf pain, minimal swelling in the right lower extremity. Neurologic: No weakness, numbness/tingling, or balance problems Psychiatric: No anxiety or depression Skin: No rash or itch (Mitzi Warren PA-C) Objective Vital Signs Date Time Temp Pulse Resp B/P (MAP) Pulse Ox O2 Delivery O2 Flow Rate FiO2 07/04/17 11:00 56 109/55 07/04/17 10:45 58 110/53 07/04/17 10:30 57 97/48 07/04/17 10:15 57 110/48 07/04/17 10:00 70 137/46 07/04/17 09:45 60 116/53 07/04/17 09:27 36.7 124/53 (76) 07/04/17 07:51 36.6 70 16 150/79 (102) 99 Nasal Cannula 2.0 07/04/17 07:30 Room Air 07/03/17 23:55 Nasal Cannula 2.0 07/03/17 22:48 36.7 70 18 132/62 (85) 98 Nasal Cannula 2.0 07/03/17 15:40 Nasal Cannula 1.5 Humidified Oxygen 07/03/17 14:50 36.7 62 16 107/61 97 07/03/17 14:49 36.8 60 16 107/67 100 1.5 07/03/17 13:50 36.6 62 14 109/56 99 2.0 07/03/17 13:20 36.9 58 14 119/76 100 2.0 07/03/17 12:50 36.5 65 16 120/64 99 2.0 07/03/17 12:35 36.7 69 16 114/70 99 2.0 07/03/17 12:24 36.5 67 16 129/69 100 07/03/17 12:15 36.5 67 16 129/69 (89) 100 Nasal Cannula 2.0 07/03/17 11:30 66 116/72 (87) (Mitzi Warren PA-C) Physical Exam Notes: General: awake, alert, no apparent distress, currently undergoing dialysis treatment in room, obese Head: Normocephalic, atraumatic ENT: PERRL, EOMI, no pharyngeal exudate, mucous membranes moist Chest: Clear to auscultation, on 2 L via NC, no adventitious breath sounds Cardiac: Regular rate and rhythm, no murmur, no JVD, normal peripheral pulses, good capillary refill Abdominal: NABS x 4 quadrants, soft, nontender to palpation, no rebound, guarding or tenderness Extremities: Right lower extremity wrapped in Kaleb, dressing appears C/D/I, otherwise normal inspection, no peripheral edema or erythema, calfs nontender to palpation Psych: Normal mood and affect Neuro: AAO x 3, speech is clear, no peripheral sensory deficits (Mitzi Warren, PA-C) Laboratory Results Last 24 Hours Test 07/03/17 11:55 07/03/17 17:24 07/03/17 21:38 07/03/17 23:53 Bedside Glucose 202 mg/dl 166 mg/dl 85 mg/dl 96 mg/dl Test 07/04/17 05:15 07/04/17 06:44 White Blood Count 5.53 K/uL Red Blood Count 2.62 M/uL Hemoglobin 8.4 g/dL Hematocrit 26.9 % Mean Corpuscular Volume 102.7 fL Mean Corpuscular Hemoglobin 32.1 pg Mean Corpuscular Hemoglobin Concent 31.2 g/dl RDW Standard Deviation 82.6 fL RDW Coefficient of Variation 22.2 % Platelet Count 145 K/uL Mean Platelet Volume 9.4 fL Sodium Level 137 mmol/L Potassium Level 4.5 mmol/L Chloride Level 103 mmol/L Carbon Dioxide Level 26 mmol/L Anion Gap 8.0 mmol/L Blood Urea Nitrogen 42 mg/dl Creatinine 4.07 mg/dl Est Creatinine Clear Calc Drug Dose 13.6 ml/min Estimated GFR () 12.3 Estimated GFR (Non- 10.6 BUN/Creatinine Ratio 10.3 Random Glucose 119 mg/dl Calcium Level 8.4 mg/dl Bedside Glucose 123 mg/dl (Mitzi Warren PA-C) Assessment and Plan 66-year-old insulin requiring diabetic female with end-stage renal disease status post orthopedic repair of R tibial fracture Acute Posthemorrhagic Anemia/ Acute blood loss anemia - Secondary to R tibial fracture repair completed by Dr. Floyd on 07/01 - 2 units PRBC, received 1st on 07/03 and now another today during dialysis End-stage renal disease- -continued HD as regularly scheduled on - plans to have dialysis on Thursday and Thursday next week due to DM II -Continue on basal bolus insulin will continue with Accu-Cheks achs Chronic systolic heart failure and ASCVD - continue on carvedilol - will change back to home dosing of BID - BP well controlled - Wears O2 when she needs it at home, patient reports this is very infrequent and maybe once per week at 2 L. Hx osteomyelitis: - Patient has completed 6 weeks Zyvox for osteomyelitis of her R 5th toe Hx of UTI: Patient is recently finished Cipro for UTI - Pt w/o urinary symptoms DVT ppx: aspirin 81 mg BID CODE STATUS: FULL CODE Disposition: From home, discharge per primary team (Mitzi Warren PA-C) Reviewed: Pt Seen/Exam by Me (Alina Lange MD) History Physician Chemical Tester Supervision Note: I interviewed and examined the patient. Discussed with CHINMAY Warren and agree with findings and plan as documented in the note. Any exceptions or clarifications are listed here: Pt feeling well. Had PRBCs with HD today. Is now moving bowels frequently and does not want stool softeners or laxatives anymore. Nigel diet. Now awaiting SNF placement. Is to remain NWB on right foot. Reports she has never been tested for STEPHEN and was tried once on CPAP in hospital and could not tolerate it. Says she finds she only needs O2 when she lies down/sleeps. Vitals reviewed NAD, obese RRR no mgr CTAB no wcr Abd +BS soft NT ND Ext: Rt leg in posterior splint withACE wrap in place, toes uncovered, right 5th dorsal surface with small 0.75 cm scab, no surrounding erythema No calf tenderness on left 66 yo female with a h/o ESRD on HD, anemia of CKD but also macrocytic, Chronic systolic and diastolic CHF, ischemic CM, CAD, HTN, COPD, Chronic respiratory failure, and OM of the toes, here with right medial malleolus nonunion repair. -hgb should be acceptable now s/p 2 units PRBCs and received epo-follow CBC -Macrocytosis developed in the last year--> check B12 and folate levels in AM -Coreg was ordered wrong on home med rec (listed as daily), but confirmed in outpt ext med history it is to be bid-changed by my PA -ASA 81mg bid for DVT proph -has completed tx for right 5th toe OM and it appears healed except small residual scab Dispo- to SNF likely not till Thursday but ready at any time now from medical perspective Documented By: Alina Lange (Alina Lange MD)
--- NOTE | 2017-07-04 12:16 | Pharmacy Progress Note ---
Glycemic: Assessment & Plan Date of Service Jul 04, 2017. Assessment & Plan The patient is currently receiving 60-77 units of insulin per day. BSGs ranging 85 - 202 mg/dl over the past 24hrs. * Basal insulin: Lantus 15 units every 12 hours * Correctional Insulin: Novolog Correction per scale ACHS Goal Range: Low 110 mg/dL - High 140 mg/dL Correction Factor: 20 mg/dL/unit * Prandial insulin: Per carb ratio of 1 unit per 5 grams CHO consumed BSGs continue to improve, no changes needed to inpatient regimen at this time. Pharmacy will continue to monitor patient daily and write orders per [facility] inpatient glycemic control protocol. Thanks. * Please note that the plan above was derived based on current level of insulin resistance and hospital stress. These recommendations are appropriate for inpatient admission only. Plan of care upon discharge will need to be reassessed to avoid potential outpatient hypo/hyperglycemia.
[2017-07-04] MEDS: CALCIUM ACETATE 667MG GELCAP PO SCH (20:49)
[2017-07-05] MEDS: ACETAMINOPHEN 500 MG TAB PO SCH ×3 (05:58→21:23)
[2017-07-05 06:49] VITALS: BP 137/82; PULSE 62; TEMP 36.8; O2SAT 97
[2017-07-05 07:12] LABS: HEMATOCRIT 30.1 % (37-47); MEAN CELL VOLUME 102.7 fL (80-100); MEAN CORPUSCULAR HEMOGLOBIN 32.4 pg (25-34); MEAN CORPUSCULAR HGB CONC 31.6 g/dl (32-36); MEAN PLATELET VOLUME 9.5 fL (7.4-10.4); PLATELET COUNT 159 K/uL (130-400); RED BLOOD COUNT 2.93 M/uL (4.2-5.4); WHITE BLOOD COUNT 5.57 K/uL (4.8-10.8)
[2017-07-05] MEDS: PATIENT'S OWN MOMETASONE FUROATE-FORMOTEROL (DULERA) 200mcg/5mcg per inh INH SCH ×2 (07:37→21:15)
[2017-07-05] MEDS: TIOTROPIUM BROMIDE 5 PUFF/90 MCG INH INH SCH (07:37)
[2017-07-05] MEDS: NEPHROCAPS PO SCH (07:38)
[2017-07-05] MEDS: CARVEDILOL 25 MG TAB PO SCH ×2 (07:38→21:21)
[2017-07-05] MEDS: ASPIRIN 81 MG ECTAB PO SCH ×2 (07:38→21:15)
[2017-07-05] MEDS: MULTIVITAMIN TAB PO SCH (07:39)
[2017-07-05] MEDS: PANTOprazole SOD 40 MG TAB PO SCH (07:39)
[2017-07-05] MEDS: INSULIN ASPART 100 UNITS/ML 3 ML PEN SC SCH ×4 (07:44→21:00)
[2017-07-05] MEDS: INSULIN GLARGINE SOLOSTAR 100 UNITS/ML 3 ML PEN SC SCH ×2 (07:46→21:18)
--- NOTE | 2017-07-05 07:48 | Orthopedic Progress Note ---
Orthopedic Progress Note Date of Service Jul 05, 2017. Subjective Post OP Day: 4 Reports: feeling well, Denies: complaints, chest pain, SOB, nausea / vomiting, light headedness, calf pain Objective calves soft nontender, N/V intact, splint C/D/I, capillary refill less than 2 sec., A&O x3, toes mobile Date Time Temp Pulse Resp B/P (MAP) Pulse Ox O2 Delivery O2 Flow Rate FiO2 07/05/17 06:49 36.8 62 16 137/82 (100) 97 Room Air 07/04/17 23:40 37.3 76 20 130/65 (86) 94 Nasal Cannula 2.0 07/04/17 23:01 Room Air 07/04/17 20:50 77 118/65 (82) 07/04/17 15:51 93 Room Air 07/04/17 14:58 36.7 74 16 128/66 (86) 93 Room Air 07/04/17 14:16 36.5 63 112/53 (72) 07/04/17 13:30 60 113/52 07/04/17 13:15 58 115/49 07/04/17 12:45 57 120/58 07/04/17 12:30 58 115/53 07/04/17 12:15 61 119/56 07/04/17 12:00 56 125/54 07/04/17 11:45 56 109/56 07/04/17 11:30 56 118/58 07/04/17 11:15 55 114/47 07/04/17 11:00 56 109/55 07/04/17 10:45 58 110/53 07/04/17 10:30 57 97/48 07/04/17 10:15 57 110/48 07/04/17 10:00 70 137/46 07/04/17 09:45 60 116/53 07/04/17 09:27 36.7 124/53 (76) 07/04/17 07:51 36.6 70 16 150/79 (102) 99 Nasal Cannula 2.0 Laboratory Results 24 Hours: Test 07/05/17 06:54 Hematocrit 30.1 % Hemoglobin 9.5 g/dL Assessment & Plan Assessment: POD #4 1. Open reduction internal fixation, right medial malleolus nonunion with autografting. 2. Calcaneal autograft harvest Chronic anemia, worsened post op CKD- Dialysis on Thursday Plan: Dialysis Thursday. Next one is likely Thursday. PT/OT--NWB RLE at all times. D/C planning--. PATIENT HAS NOW DECIDED SHE'D LIKE TO GO TO SNF. WILL HAVE CM EVAL TODAY. WILL LIKELY STAY UNTIL THURSDAY FOR INSURANCE AUTH. Inhouse Planning Pain Management: PO Tylenol, Oxy IR DVT Prophylaxis: ALENA Armijo Discharge Planning Discharge Planning: home Pain Management: Percocet DVT Prophylaxis: ASA (Patient does not want home health and does not want to go to a SNF for a rehab stay.)
[2017-07-05 07:51] LABS: BUN/CREATININE RATIO 7.6 (10-20); CALCIUM 8.3 mg/dl (8.5-10.1); CREATININE 3.07 mg/dl (0.60-1.20); POTASSIUM 3.7 mmol/L (3.5-5.1)
--- NOTE | 2017-07-05 10:48 | Nephrology Progress Note ---
Nephrology Progress Note Date of Service Jul 05, 2017. Chief Complaint Inpatient dialysis for this patient w/ ESRD Subjective Mrs. Santiago was seen & examined in her hospital room this morning. She was dialyzed Thursday for 4 hours. 1500 cc UF obtained. EDW appears to be 88 kg. Mrs. Santiago was transfused her second unit of PRBC during HD yesterday. Hgb has risen from 7 to 9.5. She reports that her dizziness has resolved and hypotension has improved. Mrs. Santiago would like to transfer to [facility] or [facility] following discharge from the hospital for ongoing physical therapy. Review of Systems Constitutional: No fever Cardiovascular: No chest pain Respiratory: No dyspnea at rest Abdomen: No pain, No nausea, No vomiting Extremities: No leg edema A complete review of systems was performed. Pertinent positives are noted above. All other systems are negative. Vital Signs Last 8 Hrs Date Time Temp Pulse Resp B/P (MAP) Pulse Ox O2 Delivery O2 Flow Rate FiO2 07/05/17 07:30 Room Air 07/05/17 06:49 36.8 62 16 137/82 (100) 97 Room Air Last Recorded Weight Weight (Kilograms): 94.800 Physical Exam General Appearance: no apparent distress Head: normocephalic, atraumatic Eyes: PERRL, EOMI Neck: no adenopathy Respiratory/Chest: lungs clear, no respiratory distress Cardiovascular: regular rate, rhythm Abdomen/GI: normal bowel sounds, non tender, soft Extremities/Musculoskelatal: no calf tenderness, no pedal edema, + pertinent finding (AVF + bruit) Neurologic/Psych: alert, oriented x 3 Family History FH: HTN (hypertension) Negative for CKD / ESRD Social History Smoking Status: Never smoker Drug Use: none Marital Status: Housing Status: lives with family Occupation: retired Patient is . She has 5 sons. One suffered TBI from ATV roll over resulting in left hemiparesis. She resides in [place], [place] near [place]. She denies tobacco or alcohol use. Laboratory Results Past 24 Hours 07/05/17 06:54 07/05/17 06:54 Test 07/04/17 11:48 07/04/17 16:20 07/04/17 17:18 07/04/17 20:21 Bedside Glucose 92 mg/dl (70-90) 188 mg/dl (70-90) 213 mg/dl (70-90) Folate 20.25 ng/mL (>5.38) Test 07/05/17 06:37 07/05/17 06:54 Bedside Glucose 106 mg/dl (70-90) Red Blood Count 2.93 M/uL (4.2-5.4) Mean Corpuscular Volume 102.7 fL (80-100) Mean Corpuscular Hemoglobin 32.4 pg (25-34) Mean Corpuscular Hemoglobin Concent 31.6 g/dl (32-36) RDW Standard Deviation 80.6 fL (36.4-46.3) RDW Coefficient of Variation 22.3 % (11.5-14.5) Mean Platelet Volume 9.5 fL (7.4-10.4) Anion Gap 9.0 mmol/L (3-11) Est Creatinine Clear Calc Drug Dose 18.8 ml/min Estimated GFR () 17.3 Estimated GFR (Non- 14.9 BUN/Creatinine Ratio 7.6 (10-20) Calcium Level 8.3 mg/dl (8.5-10.1) Vitamin B12 Level 622 pg/mL (211-911) Allergies Coded Allergies: Hydralazine (Verified Allergy, Intermediate, rash, 06/29/17) Isosorbide Nitrate (Verified Allergy, Unknown, ITCHING, 06/29/17) EZE Inhibitors (Verified Adverse Reaction, Unknown, DUE TO CKD, 06/29/17) Medications Current Inpatient Medications Medications (Trade) Dose Ordered Sig/Tu Route Start Time Stop Time Status Last Admin Dose Admin Calcium Acetate (Phoslo Cap) 667 mg QPM PO 07/01/17 21:00 07/31/17 20:59 07/04/17 20:49 667 MG Tiotropium [place] (Spiriva Handihaler Inhaler) 1 puff DAILY INH 07/02/17 09:00 08/01/17 08:59 07/05/17 07:37 1 PUFF Vitamin B Complex/ Vit C/Folic Acid (Nephrocaps) 1 cap QAM PO 07/02/17 09:00 08/01/17 08:59 07/05/17 07:38 1 CAP Miscellaneous Medication (No Nsaids) 1 ea UD N/A 07/01/17 14:00 07/31/17 13:59 Oxycodone HCl (Roxicodone Immediate Rel Tab) 1-2 TABS FOR PAIN 1 TABLET ... Q4H PRN PO 07/01/17 14:00 07/15/17 13:59 07/02/17 06:16 10 MG Acetaminophen (Tylenol Tab) 1,000 mg Q8 PO 07/01/17 15:45 07/31/17 15:44 07/05/17 05:58 1,000 MG Magnesium Hydroxide (Milk Of Magnesia Susp) 30 ml Q6H PRN PO 07/01/17 14:00 07/31/17 13:59 Bisacodyl (Dulcolax Supp) 10 mg DAILY PRN NV 07/01/17 14:00 07/31/17 13:59 Sodium Biphosphate/ Sodium Phosphate (Fleet Enema) 132 ml DAILY PRN NV 07/01/17 14:00 07/31/17 13:59 Diphenhydramine HCl (Benadryl Cap) 25 mg Q8H PRN PO 07/01/17 14:00 07/31/17 13:59 Al Hydrox/Mg Hydrox/Simethicone (Maalox Max Susp) 15 ml Q4H PRN PO 07/01/17 14:00 07/31/17 13:59 Zolpidem Tartrate (Ambien Tab) 5 mg HSZ PRN PO 07/01/17 14:00 07/31/17 13:59 Multivitamins (Multivitamin Tab) 1 tab QAM PO 07/02/17 09:00 08/01/17 08:59 07/05/17 07:39 1 TAB Ondansetron HCl (Zofran Inj) 4 mg Q6H PRN IV 07/01/17 14:00 07/31/17 13:59 07/02/17 18:09 4 MG Pantoprazole Sodium (Protonix Tab) 40 mg QAM PO 07/02/17 09:00 08/01/17 08:59 07/05/17 07:39 40 MG Aspirin (Ecotrin Tab) 81 mg Q12 PO 07/01/17 21:00 07/31/17 20:59 07/05/17 07:38 81 MG Miscellaneous Information (Consult Glycemic Management Pharmacy) 1 ea UD PRN N/A 07/01/17 14:05 07/31/17 14:04 Glucose (Glucose 40% Gel) 15-30 GRAMS 15 GRAMS... UD PRN PO 07/01/17 14:30 07/31/17 14:29 Glucose (Glucose Chew Tab) 4-8 Tablets 4 Tabl... UD PRN PO 07/01/17 14:30 07/31/17 14:29 Dextrose (Dextrose 50% 50ML Syringe) 25-50ML OF 50% DW IV FOR... UD PRN IV 07/01/17 14:30 07/31/17 14:29 Glucagon (Glucagon Inj) 1 mg UD PRN SQ 07/01/17 14:30 07/31/17 14:29 Insulin Aspart (novoLOG ASPART) SLIDING SCALE ACHS SC 07/01/17 16:00 07/31/17 15:59 07/05/17 07:44 9 UNITS Miscellaneous (Iv Fluids Completed) 1 ea PRN PRN N/A 07/01/17 15:00 07/01/18 14:59 Hydromorphone HCl (Dilaudid Inj) 0.5 mg Q4 PRN IV 07/01/17 20:30 07/15/17 20:29 Hydromorphone HCl (Dilaudid Inj) 1 mg Q4 PRN IV 07/01/17 20:30 07/15/17 20:29 07/01/17 22:50 1 MG Mometasone Furoate/ Formoterol Fumar (Dulera) 2 ea BID INH 07/02/17 09:00 08/01/17 08:59 07/05/17 07:37 2 EA Promethazine HCl 12.5 mg/Sodium Chloride 50.5 ml @ 204 mls/hr Q6H PRN IV 07/02/17 03:15 08/01/17 03:14 07/02/17 03:16 204 MLS/HR Metoclopramide HCl (Reglan Inj) 10 mg Q6H PRN IV 07/02/17 21:15 08/01/17 21:14 Insulin Glargine (Lantus Solostar Pen) 15 units BID SC 07/04/17 21:00 08/03/17 20:59 07/05/17 07:46 15 UNITS Carvedilol (Coreg Tab) 25 mg BID PO 07/04/17 21:00 08/01/17 08:59 07/05/17 07:38 25 MG Impression (1) ESRD (end stage renal disease) on dialysis (2) Osteomyelitis (3) Ankle fracture, right (4) DIAB MANJIT WO COMPL, TYPE II OR UNSPEC TYPE, NOT UNCNTRLD (5) HYPERTENSION NOS (6) Obstructive sleep apnea Recommendations END STAGE RENAL DISEASE: -- No acute indication for HD today. Will reassess in am. Next treatment is tentatively scheduled for Thursday -- Protect L arm AVF HYPERTENSION: -- Blood pressure is well controlled. Continue Carvedilol ANEMIA: -- Patient is being transfused her 2nd unit PRBC during HD 07/04 -- Monitor serial H&H ID: -- Patient has completed 6 weeks Zyvox for osteomyelitis of her R 5th toe OTHER: -- Patient is non weight bearing status due to recent surgery. She is awaiting SNF placement at [facility] or [facility]
--- NOTE | 2017-07-05 12:01 | Pharmacy Progress Note ---
Pharmacy Glycemic Short Note 2 Date of Service Jul 05, 2017. OUTPATIENT ANTIDIABETIC REGIMEN: * Lantus 15 units SQ BID * NovoLog with meals based on scale ASSESSMENT: * Pt has received 63 units of insulin over the past 24 hrs * 30 units of basal * 33 units of prandial/correctional * AM fasting in range @ 101 mg/dl this morning with current basal insulin dosing. No changes needed to Lantus * Post-prandial BSGs with significant drop from breakfast to lunch yesterday after receiving 11 units of NovoLog to cover 57g CHO {BSG 115 --> 92 mg/dl} Pt then with rebound hyperglycemia prior to dinner since BSG below goal range - no CHO coverage given at lunch vs late tray after HD not covered. Will loosen carb coverage to prevent hypoglycemia. PLAN FOR INPATIENT GLYCEMIC CONTROL: * Basal insulin: no change * Lantus 15 units SQ BID based on BSG * Bolus insulin: loosen CR from 5 to 6 * NovoLog per scale ACHS or Q6hrs while NPO * Goal Range: Low 110 mg/dL - High 140 mg/dL * Correction Factor: 20 mg/dL/unit * Nutritional / Prandial insulin per carb ratio of 1 unit per 6 grams CHO consumed PLAN FOR DISCHARGE: * Patient's A1c = 7.4% on 06/30/17. * However, this result is likely somewhat unreliable in ESRD patients d/t interactions between the A1c analyzing technique and high levels of urea in ESRD , reduced RBC life span, iron deficiency anemia, and EPO administration. HbA1c > 7.5% in ESRD patient may overestimate the extent of hyperglycemia in ESRD patients * Continue outpatient basal/bolus regimen upon discharge
--- NOTE | 2017-07-05 12:22 | Hospitalist Progress Note ---
Hospitalist Progress Note Date of Service Jul 05, 2017. (Mitzi Warren PA-C) Subjective Pt evaluation today including: conversation w/ patient, physical exam, chart review, lab review, review of studies The patient was seen and examined this morning. Pt reports doing better today compared to yesterday. She reports pain in her lower extremity is improved and that she has been ambulating without much difficulty. She had 2 loose bowel movements today but reports she typically doesn't eat a lot of fruit and has been here. Stool softeners were reduced last evening. She is waiting to hear if she has insurance accepted at [facility] or [facility] from yet today. Constitutional: No fever, No chills, No sweats Eyes: No discharge, No diplopia ENT: No nasal symptoms, No trouble swallowing Respiratory: No cough, No sputum, No shortness of breath, No dyspnea on exertion Cardiovascular: No chest pain, No edema, No palpitations Abdomen: No pain, No nausea, No vomiting, No constipation Musculoskeletal: No joint pain, No muscle pain, No swelling Skin: No rash, No itch (Mitzi Warren PA-C) Objective Vital Signs Date Time Temp Pulse Resp B/P (MAP) Pulse Ox O2 Delivery O2 Flow Rate FiO2 07/05/17 07:30 Room Air 07/05/17 06:49 36.8 62 16 137/82 (100) 97 Room Air 07/04/17 23:40 37.3 76 20 130/65 (86) 94 Nasal Cannula 2.0 07/04/17 23:01 Room Air 07/04/17 20:50 77 118/65 (82) 07/04/17 15:51 93 Room Air 07/04/17 14:58 36.7 74 16 128/66 (86) 93 Room Air 07/04/17 14:16 36.5 63 112/53 (72) 07/04/17 13:30 60 113/52 07/04/17 13:15 58 115/49 07/04/17 12:45 57 120/58 07/04/17 12:30 58 115/53 (Mitzi Warren PA-C) Physical Exam Notes: General: awake, alert, no apparent distress, currently undergoing dialysis treatment in room, obese Head: Normocephalic, atraumatic ENT: PERRL, EOMI, no pharyngeal exudate, mucous membranes moist Chest: Clear to auscultation, on 2 L via NC, no adventitious breath sounds Cardiac: Regular rate and rhythm, no murmur, no JVD, normal peripheral pulses, good capillary refill Abdominal: NABS x 4 quadrants, soft, nontender to palpation, no rebound, guarding or tenderness Extremities: Right lower extremity wrapped in Kaleb, dressing appears C/D/I, Small ulcerated lesion over anterior DIP of the R 5th toe, slight erythema over the toe but no edema and nontender to touch. Otherwise normal inspection, no peripheral edema or erythema, calfs nontender to palpation Psych: Normal mood and affect Neuro: AAO x 3, speech is clear, no peripheral sensory deficits (Mitzi Warren PA-C) Laboratory Results Last 24 Hours Test 07/04/17 16:20 07/04/17 17:18 07/04/17 20:21 07/05/17 06:37 Folate 20.25 ng/mL Bedside Glucose 188 mg/dl 213 mg/dl 106 mg/dl Test 07/05/17 06:54 07/05/17 11:52 White Blood Count 5.57 K/uL Red Blood Count 2.93 M/uL Hemoglobin 9.5 g/dL Hematocrit 30.1 % Mean Corpuscular Volume 102.7 fL Mean Corpuscular Hemoglobin 32.4 pg Mean Corpuscular Hemoglobin Concent 31.6 g/dl RDW Standard Deviation 80.6 fL RDW Coefficient of Variation 22.3 % Platelet Count 159 K/uL Mean Platelet Volume 9.5 fL Sodium Level 137 mmol/L Potassium Level 3.7 mmol/L Chloride Level 103 mmol/L Carbon Dioxide Level 25 mmol/L Anion Gap 9.0 mmol/L Blood Urea Nitrogen 23 mg/dl Creatinine 3.07 mg/dl Est Creatinine Clear Calc Drug Dose 18.8 ml/min Estimated GFR () 17.3 Estimated GFR (Non- 14.9 BUN/Creatinine Ratio 7.6 Random Glucose 104 mg/dl Calcium Level 8.3 mg/dl Vitamin B12 Level 622 pg/mL Bedside Glucose 191 mg/dl (Mitzi Warren PA-C) Assessment and Plan 66-year-old insulin requiring diabetic female with end-stage renal disease status post orthopedic repair of R tibial fracture Acute Posthemorrhagic Anemia/ Acute blood loss anemia - Secondary to R tibial fracture repair completed by Dr. Floyd on 07/01 - 2 units PRBC, received 1st on 07/03 and second on 07/04 which improved Hgb to 9.5 today. End-stage renal disease- -continued HD as regularly scheduled on - plans to have dialysis on Thursday and Thursday this week due to - Cr improved s/p dialysis Macrocytic Anemia - B12 and folate are normal which is uncommon for anemia of chronic disease with her CKD. Will ask that PCP follows up with this as an outpatient DM II -Continue on basal bolus insulin will continue with Accu-Cheks achs - Glucose running within range of 104 - 213 at highest in past 24 hrs Chronic systolic heart failure and ASCVD - continue on carvedilol - will change back to home dosing of BID - BP well controlled - Wears O2 when she needs it at home, patient reports this is very infrequent and maybe once per week at 2 L. Hx osteomyelitis: - Patient has completed 6 weeks Zyvox for osteomyelitis of her R 5th toe - Toe appears slightly erythematous today, ulceration over anterior DIP of the 5th toe well healed - No abx at this time - continue to watch Hx of UTI: Patient is recently finished Cipro for UTI - Pt w/o urinary symptoms DVT ppx: aspirin 81 mg BID CODE STATUS: FULL CODE Disposition: From home, discharge per primary team likely within 1-2 days (Mitzi Warren, ANTHONY) Reviewed: Pt Seen/Exam by Me (Alina Lange MD) History Physician [employer] Supervision Note: I interviewed and examined the patient. Discussed with CHINMAY Warren and agree with findings and plan as documented in the note. Any exceptions or clarifications are listed here: Pt feels well, anxious for discharge. Hgb improved after transfusion yesterday. Pain controlled. had trouble sleeping last night which is a chronic problem for her. Vitals reviewed NAD, obese RRR no mgr CTAB no wcr Abd +BS soft NT ND Ext: Rt leg in posterior splint withACE wrap in place, toes uncovered, right 5th dorsal surface with small 0.75 cm scab, no surrounding erythema No calf tenderness on left 66 yo female with a h/o ESRD on HD, anemia of CKD but also macrocytic, Chronic systolic and diastolic CHF, ischemic CM, CAD, HTN, COPD, Chronic respiratory failure, and OM of the toes, here with right medial malleolus nonunion repair. -hgb now acceptable s/p 2 units PRBCs and received epo-follow CBC as outpt -Macrocytosis developed in the last year--> B12 and folate levels are normal, may need Hematology referral as outpt for further evaluation -Coreg was ordered wrong on home med rec (listed as daily), but confirmed in outpt ext med history it is to be bid-changed by my PA -ASA 81mg bid for DVT proph -has completed tx for right 5th toe OM and it appears healed except small residual scab, I do not feel it appears infected as this time Dispo- to SNF likely not till Thursday but ready at any time now from medical perspective Documented By: Alina Lange (Alina Lange MD)
[2017-07-05 15:30] VITALS: BP 134/72; PULSE 75; TEMP 36.6; O2SAT 92
[2017-07-05 16:15] VITALS: O2SAT 92
[2017-07-05] MEDS ORDERED: COUGH DROP (SUGAR FREE) LOZ 24 LOZ/1 BOX PO PRN (16:15)
[2017-07-05] MEDS ORDERED: NURSING DECISION MEDICATION ORDER SCH (16:15)
[2017-07-05] MEDS: CALCIUM ACETATE 667MG GELCAP PO SCH (21:15)
[2017-07-05 21:23] VITALS: BP 156/79; PULSE 84
[2017-07-05 23:16] VITALS: BP 131/71; PULSE 69; TEMP 36.6; O2SAT 99
[2017-07-06] VITALS (23 sets, daily range): BP systolic 70–145; BP diastolic 36–80; PULSE 53–82; TEMP 36.5–36.8; O2SAT 96–98
[2017-07-06] MEDS: ONDANSETRON INJ 2 MG/ML 2 ML VIAL IV PRN (03:30)
[2017-07-06] MEDS: ACETAMINOPHEN 500 MG TAB PO SCH ×3 (05:52→21:37)
[2017-07-06 06:35] LABS: HEMATOCRIT 30.2 % (37-47); MEAN CELL VOLUME 102.7 fL (80-100); MEAN CORPUSCULAR HEMOGLOBIN 31.6 pg (25-34); MEAN CORPUSCULAR HGB CONC 30.8 g/dl (32-36); MEAN PLATELET VOLUME 9.7 fL (7.4-10.4); PLATELET COUNT 161 K/uL (130-400); RED BLOOD COUNT 2.94 M/uL (4.2-5.4); WHITE BLOOD COUNT 5.16 K/uL (4.8-10.8)
[2017-07-06 07:05] LABS: BUN/CREATININE RATIO 9.7 (10-20); CALCIUM 8.5 mg/dl (8.5-10.1); CREATININE 3.72 mg/dl (0.60-1.20); POTASSIUM 3.8 mmol/L (3.5-5.1)
--- NOTE | 2017-07-06 07:38 | Orthopedic Progress Note ---
Orthopedic Progress Note Date of Service Jul 06, 2017. Subjective Post OP Day: 5 Reports: feeling well, pain controlled w PO medications (Only using Tylenol.), Denies: complaints, chest pain, SOB, nausea / vomiting, light headedness, calf pain Objective calves soft nontender, N/V intact, splint C/D/I, capillary refill less than 2 sec., A&O x3, toes mobile Date Time Temp Pulse Resp B/P (MAP) Pulse Ox O2 Delivery O2 Flow Rate FiO2 07/06/17 07:27 36.5 64 16 145/80 (101) 98 Room Air 07/06/17 00:20 Nasal Cannula 2.0 07/05/17 23:16 36.6 69 16 131/71 (91) 99 Humidified Oxygen 2.0 07/05/17 21:23 84 156/79 (104) 07/05/17 16:15 92 Room Air 07/05/17 15:30 36.6 75 18 134/72 (92) 92 Room Air Laboratory Results 24 Hours: Test 07/06/17 05:43 Hematocrit 30.2 % Hemoglobin 9.3 g/dL Assessment & Plan Assessment: POD #5 1. Open reduction internal fixation, right medial malleolus nonunion with autografting. 2. Calcaneal autograft harvest Chronic anemia CKD- Dialysis today. Plan: Dialysis today then plan for d/c. PT/OT--NWB RLE at all times. D/C planning--. PATIENT HAS NOW DECIDED SHE'D LIKE TO GO TO SNF. Pending insurance approval, d/c today to approved SNF. Will plan for d/c after dialysis. Inhouse Planning Pain Management: PO Tylenol, Oxy IR DVT Prophylaxis: ALENA Armijo Discharge Planning Discharge Planning: home Pain Management: Percocet DVT Prophylaxis: ASA (Patient does not want home health and does not want to go to a SNF for a rehab stay.)
--- NOTE | 2017-07-06 07:39 | Discharge Instructions ---
Discharge Instructions Date of Service Jul 06, 2017. Admission Reason for Admission: Right Tibia Displaced Fracture Of Medial Malleolus Discharge Discharge Diagnosis / Problem: right medial malleolus nonunion fracture Discharge Goals Goal(s): Decrease discomfort, Improve function Activity Recommendations Activity Level: OOB In Chair Therapies: Physical Therapy Weightbearing Status: Right non-weightbearing . Additional Information Patient informed of condition: Yes Advance Directives: Yes DNR: No Level of Care: Acute Rehab Communicable Disease: No Prognosis: Stable [place] Catheter: No Instructions / Follow-Up Instructions / Follow-Up ACTIVITY RECOMMENDATIONS: Limitations: No weight bearing to affected limb at all times. SPECIAL CARE INSTRUCTIONS: * Some drainage onto the dressing is normal and is no cause for alarm. * Some swelling is natural especially after walking. * When resting, keep your foot elevated above the level of your heart. * Call [facility] if you notice: -Increased drainage -Fever over 101 degrees F -Severe constant pain BANDAGE: * Leave bandage/cast in place unless otherwise directed. * Keep bandage/cast dry at all times. FOLLOW UP VISIT WITH DR. MCCLENDON If appointment is not already scheduled: Please call [facility] after you get home today to schedule a follow-up appointment for [address] Mcclendon at . Current Hospital Diet Patient's current hospital diet: Diabetes Type 2 Diet Discharge Diet Recommended Diet: Diabetes Type 2 Diet Procedures Procedures Performed: 1. Right Ankle Medial Malleolus Non-Union Fracture Open Reduction Internal Fixation with Autograft; 2. Right Calcaneal Autograft [place] Pending Studies Studies pending at discharge: no Laboratory Results Hemoglobin A1c Test 07/02/17 05:52 Range/Units Estimated Average Glucose 163 mg/dl Hemoglobin A1c 7.3 H 4.5-5.6 % Medical Emergencies . Who to Call and When: Medical Emergencies: If at any time you feel your situation is an emergency, please call 911 immediately. . Non-Emergent Contact Non-Emergency issues call your: Surgeon Call Non-Emergent contact if: temperature is above 101, your pain is not controlled, your pain is worsening . . "Provider Documentation" section prepared by Nakul Christianson. . Core Measure Problem Core Measures: None
[2017-07-06] MEDS: TIOTROPIUM BROMIDE 5 PUFF/90 MCG INH INH SCH (07:46)
[2017-07-06] MEDS: PATIENT'S OWN MOMETASONE FUROATE-FORMOTEROL (DULERA) 200mcg/5mcg per inh INH SCH ×2 (07:47→21:27)
[2017-07-06] MEDS: INSULIN ASPART 100 UNITS/ML 3 ML PEN SC SCH ×4 (07:55→21:00)
[2017-07-06] MEDS: INSULIN GLARGINE SOLOSTAR 100 UNITS/ML 3 ML PEN SC SCH ×2 (07:56→21:42)
[2017-07-06] MEDS: PANTOprazole SOD 40 MG TAB PO SCH (09:25)
[2017-07-06] MEDS: CARVEDILOL 25 MG TAB PO SCH ×2 (09:25→21:37)
[2017-07-06] MEDS: ASPIRIN 81 MG ECTAB PO SCH ×2 (09:25→21:36)
[2017-07-06] MEDS: MULTIVITAMIN TAB PO SCH (09:25)
[2017-07-06] MEDS: NEPHROCAPS PO SCH (09:26)
--- NOTE | 2017-07-06 10:30 | Nephrology Progress Note ---
Nephrology Progress Note Date of Service Jul 06, 2017. Chief Complaint Follow-up for end-stage renal disease on hemodialysis. Maricarmen Menendez Was seen and examined in her room this morning. She started participating in physical therapy. Currently otherwise feeling well, denies any shortness of breath or chest pain. Blood pressure well controlled. Review of Systems A complete review of systems was performed. Pertinent positives are noted above. All other systems are negative. Vital Signs Last 8 Hrs Date Time Temp Pulse Resp B/P (MAP) Pulse Ox O2 Delivery O2 Flow Rate FiO2 07/06/17 08:20 98 Room Air 07/06/17 07:40 Room Air 07/06/17 07:27 36.5 64 16 145/80 (101) 98 Room Air Last Recorded Weight Weight (Kilograms): 94.800 Physical Exam GENERAL: middle aged female, AAA x 3, pleasant, healthy-appearing, not in any distress. NECK: Supple, no JVD. RESPIRATORY: Normal breathing efforts, no accessory muscle use, clear to auscultation bilaterally, no wheezes or rales. CARDIOVASCULAR: S1, S2 normal, rate rhythm regular. EXTREMITY: right lower extremity in cast, no edema LLE NEURO: speech fluent. PSYCHIATRY: Normal mood and judgment Family History FH: HTN (hypertension) Negative for CKD / ESRD Social History Smoking Status: Never smoker Drug Use: none Marital Status: Housing Status: lives with family Occupation: retired Patient is . She has 5 sons. One suffered TBI from ATV roll over resulting in left hemiparesis. She resides in [place], [place] near [place]. She denies tobacco or alcohol use. Laboratory Results Past 24 Hours 07/06/17 05:43 07/06/17 05:43 Test 07/05/17 11:52 07/05/17 17:27 07/05/17 20:45 07/06/17 05:43 Bedside Glucose 191 mg/dl (70-90) 102 mg/dl (70-90) 101 mg/dl (70-90) Red Blood Count 2.94 M/uL (4.2-5.4) Mean Corpuscular Volume 102.7 fL (80-100) Mean Corpuscular Hemoglobin 31.6 pg (25-34) Mean Corpuscular Hemoglobin Concent 30.8 g/dl (32-36) RDW Standard Deviation 80.9 fL (36.4-46.3) RDW Coefficient of Variation 21.6 % (11.5-14.5) Mean Platelet Volume 9.7 fL (7.4-10.4) Anion Gap 10.0 mmol/L (3-11) Est Creatinine Clear Calc Drug Dose 15.5 ml/min Estimated GFR () 13.7 Estimated GFR (Non- 11.8 BUN/Creatinine Ratio 9.7 (10-20) Calcium Level 8.5 mg/dl (8.5-10.1) Test 07/06/17 07:14 Bedside Glucose 98 mg/dl (70-90) Allergies Coded Allergies: Hydralazine (Verified Allergy, Intermediate, rash, 06/29/17) Isosorbide Nitrate (Verified Allergy, Unknown, ITCHING, 06/29/17) EZE Inhibitors (Verified Adverse Reaction, Unknown, DUE TO CKD, 06/29/17) Medications Current Inpatient Medications Medications (Trade) Dose Ordered Sig/Tu Route Start Time Stop Time Status Last Admin Dose Admin Calcium Acetate (Phoslo Cap) 667 mg QPM PO 07/01/17 21:00 07/31/17 20:59 07/05/17 21:15 667 MG Tiotropium [place] (Spiriva Handihaler Inhaler) 1 puff DAILY INH 07/02/17 09:00 08/01/17 08:59 07/06/17 07:46 1 PUFF Vitamin B Complex/ Vit C/Folic Acid (Nephrocaps) 1 cap QAM PO 07/02/17 09:00 08/01/17 08:59 07/06/17 09:26 1 CAP Miscellaneous Medication (No Nsaids) 1 ea UD N/A 07/01/17 14:00 07/31/17 13:59 Oxycodone HCl (Roxicodone Immediate Rel Tab) 1-2 TABS FOR PAIN 1 TABLET ... Q4H PRN PO 07/01/17 14:00 07/15/17 13:59 07/02/17 06:16 10 MG Acetaminophen (Tylenol Tab) 1,000 mg Q8 PO 07/01/17 15:45 07/31/17 15:44 07/06/17 05:52 1,000 MG Magnesium Hydroxide (Milk Of Magnesia Susp) 30 ml Q6H PRN PO 07/01/17 14:00 07/31/17 13:59 Bisacodyl (Dulcolax Supp) 10 mg DAILY PRN GA 07/01/17 14:00 07/31/17 13:59 Sodium Biphosphate/ Sodium Phosphate (Fleet Enema) 132 ml DAILY PRN GA 07/01/17 14:00 07/31/17 13:59 Diphenhydramine HCl (Benadryl Cap) 25 mg Q8H PRN PO 07/01/17 14:00 07/31/17 13:59 Al Hydrox/Mg Hydrox/Simethicone (Maalox Max Susp) 15 ml Q4H PRN PO 07/01/17 14:00 07/31/17 13:59 Zolpidem Tartrate (Ambien Tab) 5 mg HSZ PRN PO 07/01/17 14:00 07/31/17 13:59 Multivitamins (Multivitamin Tab) 1 tab QAM PO 07/02/17 09:00 08/01/17 08:59 07/06/17 09:25 1 TAB Ondansetron HCl (Zofran Inj) 4 mg Q6H PRN IV 07/01/17 14:00 07/31/17 13:59 07/06/17 03:30 4 MG Pantoprazole Sodium (Protonix Tab) 40 mg QAM PO 07/02/17 09:00 08/01/17 08:59 07/06/17 09:25 40 MG Aspirin (Ecotrin Tab) 81 mg Q12 PO 07/01/17 21:00 07/31/17 20:59 07/06/17 09:25 81 MG Miscellaneous Information (Consult Glycemic Management Pharmacy) 1 ea UD PRN N/A 07/01/17 14:05 07/31/17 14:04 Glucose (Glucose 40% Gel) 15-30 GRAMS 15 GRAMS... UD PRN PO 07/01/17 14:30 07/31/17 14:29 Glucose (Glucose Chew Tab) 4-8 Tablets 4 Tabl... UD PRN PO 07/01/17 14:30 07/31/17 14:29 Dextrose (Dextrose 50% 50ML Syringe) 25-50ML OF 50% DW IV FOR... UD PRN IV 07/01/17 14:30 07/31/17 14:29 Glucagon (Glucagon Inj) 1 mg UD PRN SQ 07/01/17 14:30 07/31/17 14:29 Insulin Aspart (novoLOG ASPART) SLIDING SCALE ACHS SC 07/01/17 16:00 07/31/17 15:59 07/06/17 07:55 11 UNITS Miscellaneous (Iv Fluids Completed) 1 ea PRN PRN N/A 07/01/17 15:00 07/01/18 14:59 Hydromorphone HCl (Dilaudid Inj) 0.5 mg Q4 PRN IV 07/01/17 20:30 07/15/17 20:29 Hydromorphone HCl (Dilaudid Inj) 1 mg Q4 PRN IV 07/01/17 20:30 07/15/17 20:29 07/01/17 22:50 1 MG Mometasone Furoate/ Formoterol Fumar (Dulera) 2 ea BID INH 07/02/17 09:00 08/01/17 08:59 07/06/17 07:47 2 EA Promethazine HCl 12.5 mg/Sodium Chloride 50.5 ml @ 204 mls/hr Q6H PRN IV 07/02/17 03:15 08/01/17 03:14 07/02/17 03:16 204 MLS/HR Metoclopramide HCl (Reglan Inj) 10 mg Q6H PRN IV 07/02/17 21:15 08/01/17 21:14 Insulin Glargine (Lantus Solostar Pen) 15 units BID SC 07/04/17 21:00 08/03/17 20:59 07/06/17 07:56 15 UNITS Carvedilol (Coreg Tab) 25 mg BID PO 07/04/17 21:00 08/01/17 08:59 07/06/17 09:25 25 MG Menthol (Nice Keila) 1 keila PRN PRN PO 07/05/17 16:15 08/04/17 16:14 07/05/17 16:20 1 KEILA Impression (1) ESRD (end stage renal disease) on dialysis (2) Osteomyelitis (3) Ankle fracture, right (4) DIAB MANJIT WO COMPL, TYPE II OR UNSPEC TYPE, NOT UNCNTRLD (5) HYPERTENSION NOS (6) Obstructive sleep apnea Recommendations -- No acute indication for HD today. Next dialysis Thursday -- Blood pressure is well controlled. Continue Carvedilol -- Patient has completed 6 weeks Zyvox for osteomyelitis of her R 5th toe -- Patient is non weight bearing status due to recent surgery. She is awaiting SNF placement at [facility] or [facility]. Can be discharge when bed available at SNF
[2017-07-06] MEDS: CALCIUM ACETATE 667MG GELCAP PO SCH (21:37)
--- NOTE | 2017-07-06 22:00 | Family Medicine Progress Note ---
Progress Note Date of Service Jul 06, 2017. Subjective Pt evaluation today including: conversation w/ patient, physical exam, chart review, lab review, review of studies Pain: No pain reported this morning Voiding: no voiding problems, no incontinence Patient resting comfortably in bed this morning. She states that she will not be going for dialysis today and is ready to start rehab. She also states she had an episode of loose stool last night but got another dose of the laxative. Denies any pain at this time and is still not weight baring. Constitutional: No fever, No chills, No fatigue Respiratory: No cough, No wheezing Cardiovascular: No chest pain, No edema, No palpitations Abdomen: No pain, No nausea, No vomiting Musculoskeletal: No joint pain, No muscle pain, No calf pain Neurologic: No numbness/tingling Medications Current Inpatient Medications Medications (Trade) Dose Ordered Sig/Tu Route Start Time Stop Time Status Last Admin Dose Admin Calcium Acetate (Phoslo Cap) 667 mg QPM PO 07/01/17 21:00 07/31/17 20:59 07/05/17 21:15 667 MG Tiotropium [place] (Spiriva Handihaler Inhaler) 1 puff DAILY INH 07/02/17 09:00 08/01/17 08:59 07/06/17 07:46 1 PUFF Vitamin B Complex/ Vit C/Folic Acid (Nephrocaps) 1 cap QAM PO 07/02/17 09:00 08/01/17 08:59 07/06/17 09:26 1 CAP Miscellaneous Medication (No Nsaids) 1 ea UD N/A 07/01/17 14:00 07/31/17 13:59 Oxycodone HCl (Roxicodone Immediate Rel Tab) 1-2 TABS FOR PAIN 1 TABLET ... Q4H PRN PO 07/01/17 14:00 07/15/17 13:59 07/02/17 06:16 10 MG Acetaminophen (Tylenol Tab) 1,000 mg Q8 PO 07/01/17 15:45 07/31/17 15:44 07/06/17 05:52 1,000 MG Magnesium Hydroxide (Milk Of Magnesia Susp) 30 ml Q6H PRN PO 07/01/17 14:00 07/31/17 13:59 Bisacodyl (Dulcolax Supp) 10 mg DAILY PRN [place] 07/01/17 14:00 07/31/17 13:59 Sodium Biphosphate/ Sodium Phosphate (Fleet Enema) 132 ml DAILY PRN MI 07/01/17 14:00 07/31/17 13:59 Diphenhydramine HCl (Benadryl Cap) 25 mg Q8H PRN PO 07/01/17 14:00 07/31/17 13:59 Al Hydrox/Mg Hydrox/Simethicone (Maalox Max Susp) 15 ml Q4H PRN PO 07/01/17 14:00 07/31/17 13:59 Zolpidem Tartrate (Ambien Tab) 5 mg HSZ PRN PO 07/01/17 14:00 07/31/17 13:59 Multivitamins (Multivitamin Tab) 1 tab QAM PO 07/02/17 09:00 08/01/17 08:59 07/06/17 09:25 1 TAB Ondansetron HCl (Zofran Inj) 4 mg Q6H PRN IV 07/01/17 14:00 07/31/17 13:59 07/06/17 03:30 4 MG Pantoprazole Sodium (Protonix Tab) 40 mg QAM PO 07/02/17 09:00 08/01/17 08:59 07/06/17 09:25 40 MG Aspirin (Ecotrin Tab) 81 mg Q12 PO 07/01/17 21:00 07/31/17 20:59 07/06/17 09:25 81 MG Miscellaneous Information (Consult Glycemic Management Pharmacy) 1 ea UD PRN N/A 07/01/17 14:05 07/31/17 14:04 Glucose (Glucose 40% Gel) 15-30 GRAMS 15 GRAMS... UD PRN PO 07/01/17 14:30 07/31/17 14:29 Glucose (Glucose Chew Tab) 4-8 Tablets 4 Tabl... UD PRN PO 07/01/17 14:30 07/31/17 14:29 Dextrose (Dextrose 50% 50ML Syringe) 25-50ML OF 50% DW IV FOR... UD PRN IV 07/01/17 14:30 07/31/17 14:29 Glucagon (Glucagon Inj) 1 mg UD PRN SQ 07/01/17 14:30 07/31/17 14:29 Insulin Aspart (novoLOG ASPART) SLIDING SCALE ACHS SC 07/01/17 16:00 07/31/17 15:59 07/06/17 18:34 6 UNITS Miscellaneous (Iv Fluids Completed) 1 ea PRN PRN N/A 07/01/17 15:00 07/01/18 14:59 Hydromorphone HCl (Dilaudid Inj) 0.5 mg Q4 PRN IV 07/01/17 20:30 07/15/17 20:29 Hydromorphone HCl (Dilaudid Inj) 1 mg Q4 PRN IV 07/01/17 20:30 07/15/17 20:29 07/01/17 22:50 1 MG Mometasone Furoate/ Formoterol Fumar (Dulera) 2 ea BID INH 07/02/17 09:00 08/01/17 08:59 07/06/17 07:47 2 EA Promethazine HCl 12.5 mg/Sodium Chloride 50.5 ml @ 204 mls/hr Q6H PRN IV 07/02/17 03:15 08/01/17 03:14 07/02/17 03:16 204 MLS/HR Metoclopramide HCl (Reglan Inj) 10 mg Q6H PRN IV 07/02/17 21:15 08/01/17 21:14 Insulin Glargine (Lantus Solostar Pen) 15 units BID SC 07/04/17 21:00 08/03/17 20:59 07/06/17 07:56 15 UNITS Carvedilol (Coreg Tab) 25 mg BID PO 07/04/17 21:00 08/01/17 08:59 07/06/17 09:25 25 MG Menthol (Nice Keila) 1 keila PRN PRN PO 07/05/17 16:15 08/04/17 16:14 07/05/17 16:20 1 KEILA Objective Vital Signs Date Time Temp Pulse Resp B/P (MAP) Pulse Ox O2 Delivery O2 Flow Rate FiO2 07/06/17 17:20 36.8 82 131/68 (89) 07/06/17 16:20 Room Air 07/06/17 16:15 68 121/65 07/06/17 16:00 67 124/59 07/06/17 15:45 66 126/65 07/06/17 15:39 63 110/59 07/06/17 15:30 67 88/76 07/06/17 15:15 65 121/54 07/06/17 15:06 36.7 59 18 121/80 (94) 96 Room Air 07/06/17 15:04 58 121/80 07/06/17 15:00 64 70/36 07/06/17 14:45 64 125/71 07/06/17 14:36 61 120/57 07/06/17 14:30 53 76/55 07/06/17 14:15 59 104/50 07/06/17 14:00 59 106/51 07/06/17 13:45 62 127/65 07/06/17 13:31 65 129/64 07/06/17 13:23 36.6 119/58 (78) 07/06/17 11:28 36.5 66 16 115/68 (84) 96 Room Air 07/06/17 08:20 98 Room Air 07/06/17 07:40 Room Air 07/06/17 07:27 36.5 64 16 145/80 (101) 98 Room Air 07/06/17 00:20 Nasal Cannula 2.0 07/05/17 23:16 36.6 69 16 131/71 (91) 99 Humidified Oxygen 2.0 07/05/17 21:23 84 156/79 (104) Physical Exam General Appearance: WD/WN, no apparent distress Respiratory/Chest: chest non-tender, lungs clear, normal breath sounds Cardiovascular: regular rate, rhythm, no edema, no gallop, no murmur Abdomen: normal bowel sounds, non tender, soft Extremities: + pertinent finding (Right lower extremity has EZE wrap) Neurologic/Psychiatric: alert, normal mood/affect, oriented x 3 Skin: + pertinent finding (ulceration over right 5th DIP joint) Laboratory Results Results Past 24 Hours Test 07/06/17 05:43 07/06/17 07:14 07/06/17 12:10 07/06/17 16:53 Range/Units White Blood Count 5.16 4.8-10.8 K/uL Red Blood Count 2.94 4.2-5.4 M/uL Hemoglobin 9.3 12.0-16.0 g/dL Hematocrit 30.2 37-47 % Mean Corpuscular Volume 102.7 80-100 fL Mean Corpuscular Hemoglobin 31.6 25-34 pg Mean Corpuscular Hemoglobin Concent 30.8 32-36 g/dl RDW Standard Deviation 80.9 36.4-46.3 fL RDW Coefficient of Variation 21.6 11.5-14.5 % Platelet Count 161 130-400 K/uL Mean Platelet Volume 9.7 7.4-10.4 fL Sodium Level 137 136-145 mmol/L Potassium Level 3.8 3.5-5.1 mmol/L Chloride Level 104 98-107 mmol/L Carbon Dioxide Level 24 21-32 mmol/L Anion Gap 10.0 3-11 mmol/L Blood Urea Nitrogen 36 7-18 mg/dl Creatinine 3.72 0.60-1.20 mg/dl Est Creatinine Clear Calc Drug Dose 15.5 ml/min Estimated GFR () 13.7 Estimated GFR (Non- 11.8 BUN/Creatinine Ratio 9.7 10-20 Random Glucose 104 70-99 mg/dl Calcium Level 8.5 8.5-10.1 mg/dl Bedside Glucose 98 139 99 70-90 mg/dl Test 07/06/17 20:47 Range/Units Bedside Glucose 133 70-90 mg/dl Assessment and Plan 66-year-old insulin requiring diabetic female with end-stage renal disease status post orthopedic repair of R tibial fracture Acute Posthemorrhagic Anemia/ Acute blood loss anemia - Secondary to R tibial fracture repair completed by Dr. Floyd on 07/01 - 2 units PRBC, received 1st on 07/03 and second on 07/04 which improved Hgb to 9.5 today. End-stage renal disease - As per nephrology, no acute indication for HD today, next dialysis session tomorrow - Continued HD as regularly scheduled on //Thu - Cr improved s/p dialysis Macrocytic Anemia - B12 and folate are normal - Follow up as outpatient DM II - Sugars well controlled - Continue on basal bolus insulin will continue with Accu-Cheks achs Chronic systolic heart failure and ASCVD - BP well controlled on home Carvedilol dose - Wears O2 when she needs it at home, patient reports this is very infrequent and maybe once per week at 2 L Hx osteomyelitis: - Patient has completed 6 weeks Zyvox for osteomyelitis of her R 5th toe - Previously infected region of anterior DIP of the 5th toe well healed - No abx at this time - continue to watch Hx of UTI: Patient is recently finished Cipro for UTI - Pt w/o urinary symptoms DVT ppx: aspirin 81 mg BID CODE STATUS: FULL CODE Disposition: Discharge to SNF today for rehab Reviewed: Pt Seen/Exam by Me History Resident Physician Supervision Note: I interviewed and examined the patient. Discussed with Dr. Encarnacion and agree with findings and plan as documented in the note. Any exceptions or clarifications are listed here: Pt feels fine. Later in the day, Nephrology decided to dialyze her contrary to the above. Vitals reviewed NAD RRR no mgr CTAB no wcr Abd soft NT ND Ext right leg in splint and EZE wrap, rt 5th toe dorsal suface with small 0.75cm scab, no surrounding erythema 66 yo female with rt medial malleolus fracture with nonunion now s/p ORIF, h/o ESRD on HD -doing well post-op -HD today and awaiting insurance auth approval for rehab Documented By: Alina Lange
[2017-07-07] MEDS: ACETAMINOPHEN 500 MG TAB PO SCH ×2 (05:43→13:30)
[2017-07-07 06:54] LABS: BUN/CREATININE RATIO 9.9 (10-20); CALCIUM 8.4 mg/dl (8.5-10.1); CREATININE 2.81 mg/dl (0.60-1.20)
[2017-07-07 07:21] VITALS: BP 131/75; PULSE 69; TEMP 36.7; O2SAT 92
[2017-07-07] MEDS: INSULIN ASPART 100 UNITS/ML 3 ML PEN SC SCH ×2 (07:55→12:38)
[2017-07-07 08:00] VITALS: O2SAT 92
[2017-07-07 08:09] LABS: HEPATITIS B AB NEG
--- NOTE | 2017-07-07 08:19 | Hospitalist Progress Note ---
Hospitalist Progress Note Date of Service Jul 07, 2017. Subjective Pt evaluation today including: conversation w/ patient, physical exam, chart review, lab review, review of studies Pain: none PO Intake: Good Voiding: no voiding problems The patient was seen and examined this morning. Pt reports doing well, she is leaving for home today at 12:30-1:30. Reports she no longer feels she needs rehab because of being here for 5 days and getting therapy. Her at home can help her around the house, and they also live only on the first floor of their home. She reports no other acute complaints. Loose bowels have resolved with cessation of stool softeners. Her wound on the R 5th pinky toe has not changed. Denies any pain and states swelling in her leg and foot has decreased. She denies any fever, sweats or chills. ROS: 6 point ROS reviewed and otherwise negative. Objective Vital Signs Date Time Temp Pulse Resp B/P (MAP) Pulse Ox O2 Delivery O2 Flow Rate FiO2 07/07/17 07:21 36.7 69 18 131/75 (93) 92 Room Air 07/07/17 00:32 Nasal Cannula 2.0 Humidified Oxygen 07/06/17 23:09 36.5 69 16 127/69 (88) 98 Nasal Cannula 2.0 Humidified Oxygen 07/06/17 21:34 71 132/70 (90) 97 Nasal Cannula 2.0 07/06/17 17:20 36.8 82 131/68 (89) 07/06/17 16:20 Room Air 07/06/17 16:15 68 121/65 07/06/17 16:00 67 124/59 07/06/17 15:45 66 126/65 07/06/17 15:39 63 110/59 07/06/17 15:30 67 88/76 07/06/17 15:15 65 121/54 07/06/17 15:06 36.7 59 18 121/80 (94) 96 Room Air 07/06/17 15:04 58 121/80 07/06/17 15:00 64 70/36 07/06/17 14:45 64 125/71 07/06/17 14:36 61 120/57 07/06/17 14:30 53 76/55 07/06/17 14:15 59 104/50 07/06/17 14:00 59 106/51 07/06/17 13:45 62 127/65 07/06/17 13:31 65 129/64 07/06/17 13:23 36.6 119/58 (78) 07/06/17 11:28 36.5 66 16 115/68 (84) 96 Room Air 07/06/17 08:20 98 Room Air Physical Exam Notes: General: awake, alert, no apparent distress, +obese BMI = 39.3 Head: Normocephalic, atraumatic ENT: PERRL, EOMI, no pharyngeal exudate, mucous membranes moist Chest: Clear to auscultation, on room air, no adventitious breath sounds Cardiac: Regular rate and rhythm, no murmur, no JVD, normal peripheral pulses, good capillary refill Abdominal: NABS x 4 quadrants, soft, nontender to palpation, no rebound, guarding or tenderness Extremities: Right lower extremity wrapped in Kaleb, dressing appears C/D/I, otherwise normal inspection, no peripheral edema or erythema, calfs nontender to palpation, + R 5th little toe with lesion on anterior DIP appears closed with scab, minimal surrounding erythema and warmth not extending past the toe. No pain with palpation. Psych: Normal mood and affect Neuro: AAO x 3, speech is clear, no peripheral sensory deficits Laboratory Results Last 24 Hours Test 07/06/17 12:10 07/06/17 16:53 07/06/17 20:47 07/07/17 06:04 Bedside Glucose 139 mg/dl 99 mg/dl 133 mg/dl Sodium Level 135 mmol/L Potassium Level 4.0 mmol/L Chloride Level 100 mmol/L Carbon Dioxide Level 28 mmol/L Anion Gap 7.0 mmol/L Blood Urea Nitrogen 28 mg/dl Creatinine 2.81 mg/dl Est Creatinine Clear Calc Drug Dose 20.9 ml/min Estimated GFR () 19.2 Estimated GFR (Non- 16.6 BUN/Creatinine Ratio 9.9 Random Glucose 94 mg/dl Calcium Level 8.4 mg/dl Test 07/07/17 07:30 Bedside Glucose 111 mg/dl Assessment and Plan 66-year-old insulin requiring diabetic female with end-stage renal disease status post orthopedic repair of R tibial fracture Acute Posthemorrhagic Anemia/ Acute blood loss anemia - Secondary to R tibial fracture repair completed by Dr. Floyd on 07/01 - 2 units PRBC, received 1st on 07/03 and second on 07/04 which improved Hgb to 9.5 - has been stable since. End-stage renal disease- - continued HD as regularly scheduled on /Thu - had dialysis yesterday: this week will get it Thursday and Thursday this week due to - Cr improved s/p dialysis Macrocytic Anemia - B12 and folate are normal which is uncommon for anemia of chronic disease with her CKD. Will ask that PCP follows up with this as an outpatient DM II - Continue on basal bolus insulin will continue with Accu-Cheks achs - Glucose Chronic systolic heart failure and ASCVD - continue on carvedilol - will change back to home dosing of BID - BP well controlled - Wears O2 when she needs it at home, patient reports this is very infrequent and maybe once per week at 2 L. Hx osteomyelitis: - Patient has completed 6 weeks Zyvox for osteomyelitis of her R 5th toe - Toe appears slightly erythematous today, ulceration over anterior DIP of the 5th toe well healed - No abx at this time - continue to watch - follows with wound as an outpatient Hx of UTI: Patient is recently finished Cipro for UTI - Pt w/o urinary symptoms DVT ppx: aspirin 81 mg BID CODE STATUS: FULL CODE Disposition: From home, discharge per primary team today to home. Pt refusing home health or rehab services.
--- NOTE | 2017-07-07 08:36 | Pharmacy Progress Note ---
Glycemic Control Progress Note Date of Service Jul 07, 2017. Scope Glycemic Pharmacist consulted for glycemic control to write orders per [facility] inpatient glycemic control protocol. Objective Accuchecks BSG (last 24hrs): Test 07/06/17 12:10 07/06/17 16:53 07/06/17 20:47 07/07/17 06:04 Bedside Glucose 139 mg/dl (70-90) 99 mg/dl (70-90) 133 mg/dl (70-90) Random Glucose 94 mg/dl (70-99) Test 07/07/17 07:30 Bedside Glucose 111 mg/dl (70-90) HbA1c: Test 07/02/17 05:52 Hemoglobin A1c 7.3 % (4.5-5.6) H Recent Pertinent Medications Outpatient Anti-diabetic Regimen: * Lantus 15 units twice daily + Novolog sliding scale * A1c = 7.4 % 06/30/17 Risk Factors for Insulin Resistance: * Recent Surgery: POD 6 for orthopedic surgery * Diet: type 2 diabetic diet Outpatient Anti-Diabetic Meds see above Assessment & Plan ASSESSMENT: * Ms Santiago is a 66 y/o F who is POD 6 for ankle surgery. She has PMH of ESRD on dialysis, COPD, and peripheral neuropathy. Based upon previous data, Ms Santiago requires around 60 units per day while hospitalized. ADA & AACE recommend a goal blood sugar range 140-180 mg/dl for the majority of critically ill & non- critically ill patients. However, more stringent targets may be selected in individual cases. Will utilize more stringent goal of 110-140mg/dl based on patient age & comorbidities. Additionally, tighter glycemic control is warranted to facilitate wound healing. * During her hospitalization, Ms Santiago has required on average 60 units of insulin (30 units of basal and 21 units of bolus yesterday). Her fasting this morning was 94 mg/dL and 111 mg/dL POC right after eating. Blood sugars yesterday ranged from 98-139 mg/dL. * For Lantus, her fasting blood sugar continues to decrease each morning therefore reduce Lantus by 13% to 13 units twice daily. Post-prandial blood sugars are well controlled so will continue current regimen. Estimate that patient will require around 55 units of Lantus per day. PLAN FOR INPATIENT GLYCEMIC CONTROL: * DECREASE Basal insulin to LANTUS 13 units SQ BID * Correctional Insulin with NOVOLOG per scale ACHS or Q6hrs while NPO * Goal Range: Low 110 mg/dL - High 140 mg/dL * Correction Factor: 20 mg/dL/unit * Nutritional / Prandial insulin per carb ratio of 1 unit per 6 grams CHO consumed DISCHARGE RECOMMENDATIONS * Ms Santiago's HbA1C appears to be reasonably controlled although it may not accurately represent her blood sugar control due to being an ESRD patient on HD. Monitor blood sugar control based upon blood sugar readings as an outpatient. Thank you.
[2017-07-07 08:52] VITALS: BP 125/73; PULSE 67
[2017-07-07] MEDS: PATIENT'S OWN MOMETASONE FUROATE-FORMOTEROL (DULERA) 200mcg/5mcg per inh INH SCH (08:54)
[2017-07-07] MEDS: TIOTROPIUM BROMIDE 5 PUFF/90 MCG INH INH SCH (08:55)
[2017-07-07] MEDS: ASPIRIN 81 MG ECTAB PO SCH (08:55)
[2017-07-07] MEDS: NEPHROCAPS PO SCH (08:56)
[2017-07-07] MEDS: CARVEDILOL 25 MG TAB PO SCH (08:56)
[2017-07-07] MEDS: MULTIVITAMIN TAB PO SCH (08:56)
[2017-07-07] MEDS: PANTOprazole SOD 40 MG TAB PO SCH (08:56)
[2017-07-07] MEDS ORDERED: INSULIN GLARGINE SOLOSTAR 100 UNITS/ML 3 ML PEN SC SCH (09:00)
--- NOTE | 2017-07-07 10:00 | Orthopedic Progress Note ---
Orthopedic Progress Note Date of Service Jul 07, 2017. Subjective Post OP Day: 6 Reports: feeling well, pain controlled w PO medications, Denies: complaints, chest pain, SOB, nausea / vomiting, light headedness, calf pain Objective N/V intact, splint C/D/I, capillary refill less than 2 sec., dressing C/D/I, A& O x3, toes mobile Date Time Temp Pulse Resp B/P (MAP) Pulse Ox O2 Delivery O2 Flow Rate FiO2 07/07/17 08:52 67 125/73 (90) 07/07/17 08:00 92 Room Air 07/07/17 07:21 36.7 69 18 131/75 (93) 92 Room Air 07/07/17 00:32 Nasal Cannula 2.0 Humidified Oxygen 07/06/17 23:09 36.5 69 16 127/69 (88) 98 Nasal Cannula 2.0 Humidified Oxygen 07/06/17 21:34 71 132/70 (90) 97 Nasal Cannula 2.0 07/06/17 17:20 36.8 82 131/68 (89) 07/06/17 16:20 Room Air 07/06/17 16:15 68 121/65 07/06/17 16:00 67 124/59 07/06/17 15:45 66 126/65 07/06/17 15:39 63 110/59 07/06/17 15:30 67 88/76 07/06/17 15:15 65 121/54 07/06/17 15:06 36.7 59 18 121/80 (94) 96 Room Air 07/06/17 15:04 58 121/80 07/06/17 15:00 64 70/36 07/06/17 14:45 64 125/71 07/06/17 14:36 61 120/57 07/06/17 14:30 53 76/55 07/06/17 14:15 59 104/50 07/06/17 14:00 59 106/51 07/06/17 13:45 62 127/65 07/06/17 13:31 65 129/64 07/06/17 13:23 36.6 119/58 (78) 07/06/17 11:28 36.5 66 16 115/68 (84) 96 Room Air Assessment & Plan Assessment: POD #6 1. Open reduction internal fixation, right medial malleolus nonunion with autografting. 2. Calcaneal autograft harvest Chronic anemia CKD- Dialysis yesterday, scheduled for outpatient tomorrow in [place]. Plan: PT/OT--NWB RLE at all times. D/C planning--. PATIENT HAS NOW DECIDED SHE'D LIKE TO GO HOME NOW, will make arrangements for d/c later today. will do outpatient dialysis tomorrow. Discharge Planning Discharge Planning: home Pain Management: Percocet DVT Prophylaxis: ASA (Patient does not want home health and does not want to go to a SNF for a rehab stay.)
--- NOTE | 2017-07-07 10:11 | Nephrology Progress Note ---
Nephrology Progress Note Date of Service Jul 07, 2017. Chief Complaint Follow-up for end-stage renal disease on hemodialysis. Maricarmen Menendez was seen and examined in her room this morning. She is overall feeling well has been participating in physical therapy and feels like she does need to go to rehab and she can go home and do it on her own. Had dialysis yesterday, uneventful, currently blood pressure volume status and electrolyte acceptable. Review of Systems A complete review of systems was performed. Pertinent positives are noted above. All other systems are negative. Vital Signs Last 8 Hrs Date Time Temp Pulse Resp B/P (MAP) Pulse Ox O2 Delivery O2 Flow Rate FiO2 07/07/17 08:52 67 125/73 (90) 07/07/17 08:00 92 Room Air 07/07/17 07:21 36.7 69 18 131/75 (93) 92 Room Air Last Recorded Weight Weight (Kilograms): 97.500 Physical Exam GENERAL: middle aged female, AAA x 3, pleasant, healthy-appearing, not in any distress. NECK: Supple, no JVD. RESPIRATORY: Normal breathing efforts, no accessory muscle use, clear to auscultation bilaterally, no wheezes or rales. CARDIOVASCULAR: S1, S2 normal, rate rhythm regular. EXTREMITY: right lower extremity in cast, no edema LLE NEURO: speech fluent. PSYCHIATRY: Normal mood and judgment Family History FH: HTN (hypertension) Negative for CKD / ESRD Social History Smoking Status: Never smoker Drug Use: none Marital Status: Housing Status: lives with family Occupation: retired Patient is . She has 5 sons. One suffered TBI from ATV roll over resulting in left hemiparesis. She resides in [place], [place] near [place]. She denies tobacco or alcohol use. Laboratory Results Past 24 Hours 07/07/17 06:04 Test 07/06/17 12:10 07/06/17 16:53 07/06/17 20:47 07/07/17 06:04 Bedside Glucose 139 mg/dl (70-90) 99 mg/dl (70-90) 133 mg/dl (70-90) Anion Gap 7.0 mmol/L (3-11) Est Creatinine Clear Calc Drug Dose 20.9 ml/min Estimated GFR () 19.2 Estimated GFR (Non- 16.6 BUN/Creatinine Ratio 9.9 (10-20) Calcium Level 8.4 mg/dl (8.5-10.1) Hepatitis B Surface Antigen NEG (NEG) Hepatitis B Surface Antibody NEG Test 07/07/17 07:30 Bedside Glucose 111 mg/dl (70-90) Allergies Coded Allergies: Hydralazine (Verified Allergy, Intermediate, rash, 06/29/17) Isosorbide Nitrate (Verified Allergy, Unknown, ITCHING, 06/29/17) EZE Inhibitors (Verified Adverse Reaction, Unknown, DUE TO CKD, 06/29/17) Medications Current Inpatient Medications Medications (Trade) Dose Ordered Sig/Tu Route Start Time Stop Time Status Last Admin Dose Admin Calcium Acetate (Phoslo Cap) 667 mg QPM PO 07/01/17 21:00 07/31/17 20:59 07/06/17 21:37 667 MG Tiotropium [place] (Spiriva Handihaler Inhaler) 1 puff DAILY INH 07/02/17 09:00 08/01/17 08:59 07/07/17 08:55 1 PUFF Vitamin B Complex/ Vit C/Folic Acid (Nephrocaps) 1 cap QAM PO 07/02/17 09:00 08/01/17 08:59 07/07/17 08:56 1 CAP Miscellaneous Medication (No Nsaids) 1 ea UD N/A 07/01/17 14:00 07/31/17 13:59 Oxycodone HCl (Roxicodone Immediate Rel Tab) 1-2 TABS FOR PAIN 1 TABLET ... Q4H PRN PO 07/01/17 14:00 07/15/17 13:59 07/02/17 06:16 10 MG Acetaminophen (Tylenol Tab) 1,000 mg Q8 PO 07/01/17 15:45 07/31/17 15:44 07/07/17 05:43 1,000 MG Magnesium Hydroxide (Milk Of Magnesia Susp) 30 ml Q6H PRN PO 07/01/17 14:00 07/31/17 13:59 Bisacodyl (Dulcolax Supp) 10 mg DAILY PRN [place] 07/01/17 14:00 07/31/17 13:59 Sodium Biphosphate/ Sodium Phosphate (Fleet Enema) 132 ml DAILY PRN NJ 07/01/17 14:00 07/31/17 13:59 Diphenhydramine HCl (Benadryl Cap) 25 mg Q8H PRN PO 07/01/17 14:00 07/31/17 13:59 Al Hydrox/Mg Hydrox/Simethicone (Maalox Max Susp) 15 ml Q4H PRN PO 07/01/17 14:00 07/31/17 13:59 Zolpidem Tartrate (Ambien Tab) 5 mg HSZ PRN PO 07/01/17 14:00 07/31/17 13:59 Multivitamins (Multivitamin Tab) 1 tab QAM PO 07/02/17 09:00 08/01/17 08:59 07/07/17 08:56 1 TAB Ondansetron HCl (Zofran Inj) 4 mg Q6H PRN IV 07/01/17 14:00 07/31/17 13:59 07/06/17 03:30 4 MG Pantoprazole Sodium (Protonix Tab) 40 mg QAM PO 07/02/17 09:00 08/01/17 08:59 07/07/17 08:56 40 MG Aspirin (Ecotrin Tab) 81 mg Q12 PO 07/01/17 21:00 07/31/17 20:59 07/07/17 08:55 81 MG Miscellaneous Information (Consult Glycemic Management Pharmacy) 1 ea UD PRN N/A 07/01/17 14:05 07/31/17 14:04 Glucose (Glucose 40% Gel) 15-30 GRAMS 15 GRAMS... UD PRN PO 07/01/17 14:30 07/31/17 14:29 Glucose (Glucose Chew Tab) 4-8 Tablets 4 Tabl... UD PRN PO 07/01/17 14:30 07/31/17 14:29 Dextrose (Dextrose 50% 50ML Syringe) 25-50ML OF 50% DW IV FOR... UD PRN IV 07/01/17 14:30 07/31/17 14:29 Glucagon (Glucagon Inj) 1 mg UD PRN SQ 07/01/17 14:30 07/31/17 14:29 Insulin Aspart (novoLOG ASPART) SLIDING SCALE ACHS SC 07/01/17 16:00 07/31/17 15:59 07/07/17 07:55 13 UNITS Miscellaneous (Iv Fluids Completed) 1 ea PRN PRN N/A 07/01/17 15:00 07/01/18 14:59 Hydromorphone HCl (Dilaudid Inj) 0.5 mg Q4 PRN IV 07/01/17 20:30 07/15/17 20:29 Hydromorphone HCl (Dilaudid Inj) 1 mg Q4 PRN IV 07/01/17 20:30 07/15/17 20:29 07/01/17 22:50 1 MG Mometasone Furoate/ Formoterol Fumar (Dulera) 2 ea BID INH 07/02/17 09:00 08/01/17 08:59 07/07/17 08:54 2 EA Promethazine HCl 12.5 mg/Sodium Chloride 50.5 ml @ 204 mls/hr Q6H PRN IV 07/02/17 03:15 08/01/17 03:14 07/02/17 03:16 204 MLS/HR Metoclopramide HCl (Reglan Inj) 10 mg Q6H PRN IV 07/02/17 21:15 08/01/17 21:14 Carvedilol (Coreg Tab) 25 mg BID PO 07/04/17 21:00 08/01/17 08:59 07/07/17 08:56 25 MG Menthol (Nice Keila) 1 keila PRN PRN PO 07/05/17 16:15 08/04/17 16:14 07/05/17 16:20 1 KEILA Insulin Glargine (Lantus Solostar Pen) 13 units BID SC 07/07/17 09:00 08/06/17 08:59 07/07/17 07:57 13 UNITS Impression (1) ESRD (end stage renal disease) on dialysis (2) Osteomyelitis (3) Ankle fracture, right (4) DIAB MANJIT WO COMPL, TYPE II OR UNSPEC TYPE, NOT UNCNTRLD (5) HYPERTENSION NOS (6) Obstructive sleep apnea Recommendations --had dialysis yesterday, tolerated well, currently blood pressure, electrolyte volume status acceptable, she has outpatient spot available for dialysis tomorrow --can be discharged any time today -- Blood pressure is well controlled. Continue Carvedilol
[2017-07-07 10:14] VITALS: BP 125/73; PULSE 67
[2017-07-07 10:16] VITALS: BP 125/73; PULSE 67; TEMP 36.7; O2SAT 92
[2017-07-07] MEDS ORDERED: PROM25TA9 PO (11:47)
--- NOTE | 2017-07-13 16:29 | Discharge Summary ---
Orthopedic Discharge Summary Admission Date/Reason Jul 01, 2017 at 09:15 Right Tibia Displaced Fracture Of Medial Malleolus. Discharge Date/Disposition Jul 07, 2017 Home Diagnosis Principal Diagnosis: right medial malleolus nonunion fracture Procedure(s) Performed 1. Open reduction internal fixation, right medial malleolus nonunion with autografting. 2. Calcaneal autograft harvest Consultations Internal medicine Nephrology Pharmacy Medication Reconciliation New Medications: Oxycodone/Acetaminophen 5MG/325MG (Percocet 5MG/325MG) Tab 1-2 TABLETS PO Q4H PRN for Pain, #60 TAB Promethazine Hcl (Phenergan) 25 Mg Tab 25 MG PO Q6H PRN for Nausea, #20 TAB Aspirin (Aspirin EC Low Dose) 81 Mg Ectab 81 MG PO Q12 for 42 Days Changed Medications: Carvedilol (Carvedilol) 25 Mg Tab 25 MG PO BID for 30 Days (Changed from: QAM) Continued Medications: Calcium Acetate (Phosphate Bin (Phoslo 667 Mg) 667 Mg Cap 667 MG PO QPM Home O2 Therapy (Oxygen) Gas 2 LITERS NA PRN, BTL Insulin Aspart (Novolog Flexpen) 100 Units/Ml Inj 1 DOSE SC TID COVERAGE DIRECTED BY SLIDING SCALE Insulin Glargine (Lantus Solostar) 100 Unit/Ml Inj 15 UNITS SC AMPM, PEN Mometasone Furoate-Formoterol (Dulera 200/5 Mcg) 1 Aer Aer 2 PUFFS INH BID Tiotropium [place] (Spiriva Handihaler) 30 Puff/540 Mcg Aerp 1 CAP INH DAILY, INHALER Vitamin B Cmplx/Vitc/Folic Ac (Nephrocaps) Cap 1 CAP PO QAM, CAP Discontinued Medications: Acetaminophen (Tylenol) 500 Mg Tab 1000 MG PO Q6H PRN for Pain, TAB Aspirin (Aspirin Ec) 81 Mg Tab 81 MG PO QAM Linezolid (Zyvox) 600 Mg Tab 600 MG PO QPM, TAB Admission Physical Exam As per Admitting History & Physical. Hospital Course The patient was admitted on 11.17 and underwent the above procedure. She was kept NWB on the RLE at all times. On POD #1, she was scheduled for dialysis. Her original plan was to be d/c'd home, however she didn't have too much success with PT on POD #1 or POD #2 with ambulating or transferring. The plan then changed to go to a SNF for a rehab stay or to go home with home health. However, she needed to stay through the weekend for insurance approval. She had dialysis again on POD #3 and then POD #5. She once again changed her mind and wanted to go home on her own. She was then d/c'd home on 07.07.17 when she was stable to go home. Discharge Instructions Please refer to the electronic Patient Visit Report (Discharge Instructions) for additional information. ACTIVITY RECOMMENDATIONS: Limitations: No weight bearing to affected limb at all times. SPECIAL CARE INSTRUCTIONS: * Some drainage onto the dressing is normal and is no cause for alarm. * Some swelling is natural especially after walking. * When resting, keep your foot elevated above the level of your heart. * Call [facility] if you notice: -Increased drainage -Fever over 101 degrees F -Severe constant pain BANDAGE: * Leave bandage/cast in place unless otherwise directed. * Keep bandage/cast dry at all times. FOLLOW UP VISIT WITH DR. MCCLENDON If appointment is not already scheduled: Please call [facility] after you get home today to schedule a follow-up appointment for [address] Mcclendon at .
== END 2017-07-07 14:55 | disposition home or self-care (01) ==
LOC: C.ACU 08:45 → C.3E 09:15 → ENRESERV 15:04
PROVIDERS: ADMIT Orthopaedic Surgery Sports Medicine; ATTEND Orthopaedic Surgery Sports Medicine
DX: S82.51XK Displaced fracture of medial malleolus of right tibia, subsequent encounter for closed fracture with nonunion (principal); E11.22 Type 2 diabetes mellitus with diabetic chronic kidney disease; N18.6 End stage renal disease; Z99.2 Dependence on renal dialysis; X50.1XXS Overexertion from prolonged static or awkward postures, sequela; D64.9 Anemia, unspecified; I13.2 Hypertensive heart and chronic kidney disease with heart failure and with stage 5 chronic kidney disease, or end stage renal disease; I50.20 Unspecified systolic (congestive) heart failure; J44.9 Chronic obstructive pulmonary disease, unspecified; E78.00 Pure hypercholesterolemia, unspecified; G47.33 Obstructive sleep apnea (adult) (pediatric); E11.42 Type 2 diabetes mellitus with diabetic polyneuropathy; N25.81 Secondary hyperparathyroidism of renal origin; E55.9 Vitamin D deficiency, unspecified; E66.9 Obesity, unspecified; Z99.81 Dependence on supplemental oxygen; Z79.4 Long term (current) use of insulin; Z79.82 Long term (current) use of aspirin; Z79.899 Other long term (current) drug therapy

== ENCOUNTER → 2017-07-22 | Outpatient (CLI) | payer OTHER ==
[~2017-07-22] MED LIST changes: -ACET-1256 PO; +ASPEC81 PO; -ASPI81TA28 PO; -BUPIVACAINE 0.5 % 5 MG/1 ML PF 10ML VIAL ONE; -CEFAZOLIN 2000MG IV PUSH 10 ML IV SCH; -LACTATED RINGER'S 1000ML 1,000 ML IV SCH; -LINE600T5 PO; +OXYC-57 PO; +PROM25TA9 PO
--- NOTE | 2017-07-22 11:20 | DIAGNOSTIC IMAGING REPORT ---
CHEST 2 VIEWS ROUTINE HISTORY: 66 years-old Female [id number] acute cough COMPARISON: Chest radiograph 05/12/2017 TECHNIQUE: AP and lateral views of the chest FINDINGS: Cardiac silhouette is again markedly enlarged. Pulmonary vascular congestion without overt pulmonary edema. There is no pneumothorax. Small left and trace right pleural effusions with subsegmental left greater than right bibasilar opacities. Trace fluid tracks along the fissures. Bones of the chest are grossly intact. IMPRESSION: 1. Cardiomegaly and pulmonary vascular congestion without overt pulmonary edema. 2. Small left and trace right pleural effusions with left greater than right bibasilar opacities suggesting atelectasis or pneumonia. The above report was generated using voice recognition software. It may contain grammatical, syntax or spelling errors. Electronically signed by: Solo Roberts M.D. 07/22/2017 11:18 AM Dictated Date/Time: 07/22/2017 11:17 AM
== END | disposition home or self-care (01) ==
LOC: C.RAD1850 10:58
PROVIDERS: ATTEND Physician Assistant
DX: R05 Cough (principal); I51.7 Cardiomegaly; R09.89 Other specified symptoms and signs involving the circulatory and respiratory systems; R91.8 Other nonspecific abnormal finding of lung field

== ENCOUNTER 2017-09-26 18:41 | Emergency (ER) | payer OTHER ==
[~2017-09-26] VITALS: Ht 157.5 cm; Wt 87.4 kg
[2017-09-26 18:43] VITALS: Ht 157.5 cm; Wt 87.4 kg
[2017-09-26] MEDS ORDERED: ALBUT/IPRATROP 3MG/0.5MG NEB 3 ML VIAL INH STA (19:07)
[2017-09-26] MEDS ORDERED: BENZONATATE 100MG CAP PO ONE (19:15)
[2017-09-26 19:33] LABS: BASO % 0.1 %; BASO ABS # 0.01 K/uL (0-0.2); EOS % 1.1 %; EOS ABS # 0.08 K/uL (0-0.5); HEMATOCRIT 33.9 % (37-47); IG# 0.02 K/uL (0.00-0.02); LYMPH % 11.4 %; LYMPH ABS # 0.82 K/uL (1.2-3.4); MEAN CELL VOLUME 98.3 fL (80-100); MEAN CORPUSCULAR HEMOGLOBIN 31.9 pg (25-34); MEAN CORPUSCULAR HGB CONC 32.4 g/dl (32-36); MEAN PLATELET VOLUME 9.9 fL (7.4-10.4); MONO % 6.4 %; MONO ABS # 0.46 K/uL (0.11-0.59); NEUT % 80.7 %; NEUT ABS # 5.78 K/uL (1.4-6.5); PLATELET COUNT 195 K/uL (130-400); RED CELL DISTRIBUTION WIDTH CV 15.8 % (11.5-14.5); WHITE BLOOD COUNT 7.17 K/uL (4.8-10.8)
[2017-09-26 19:48] LABS: ALBUMIN 3.4 gm/dl (3.4-5.0); CREATININE 3.13 mg/dl (0.60-1.20); POTASSIUM 4.1 mmol/L (3.5-5.1)
[2017-09-26 19:51] LABS: TOTAL PROTEIN 7.7 gm/dl (6.4-8.2)
[2017-09-26 20:01] LABS: INFLUENZA B ANTIGEN Neg for Influ B (NEG)
--- NOTE | 2017-09-26 20:16 | DIAGNOSTIC IMAGING REPORT ---
CHEST 2 VIEWS ROUTINE CLINICAL HISTORY: 67 years-old Female presenting with cough, f/c. TECHNIQUE: PA and lateral views of the chest were obtained. COMPARISON: 07/22/2017. FINDINGS: Atherosclerosis of aortic arch. Cardiac silhouette is markedly enlarged. Pulmonary vascular prominence. Chronic left pleural effusion. Minimal bandlike opacities in the left mid and lower lung unchanged. No new focal infiltrate. No pneumothorax. Osseous structures normal. Upper abdomen normal. IMPRESSION: 1. No convincing evidence of a new focal infiltrate to suggest pneumonia. 2. Chronic left pleural effusion and left lung atelectasis or scarring. 3. Cardiomegaly with pulmonary vascular prominence suggesting volume overload. No satish pulmonary edema. Electronically signed by: Jim Redmond M.D. 09/26/2017 8:15 PM Dictated Date/Time: 09/26/2017 8:13 PM
--- NOTE | 2017-09-26 20:18 | DIAGNOSTIC IMAGING REPORT ---
KUB CLINICAL HISTORY: 67 years-old Female presenting with n/v/d. TECHNIQUE: Single supine view of the abdomen was obtained. COMPARISON: 12/05/2006. FINDINGS: Cholecystectomy clips noted. Nonobstructive bowel gas pattern. No gross pneumoperitoneum. The liver and spleen shadows appear enlarged though this may be due to magnification. Allowing for bowel gas and stool, no calcifications to suggest nephrolithiasis. Splenic atherosclerosis noted. Pelvic phleboliths. Osseous structures normal. Left pleural effusion. IMPRESSION: 1. Apparent enlarged liver and spleen shadows though this may be affected by magnification. 2. No bowel obstruction or gross free air. Electronically signed by: Jim Redmond M.D. 09/26/2017 8:17 PM Dictated Date/Time: 09/26/2017 8:15 PM
[2017-09-26] MEDS ORDERED: ACETAMINOPHEN 500 MG TAB PO STA (20:56)
[2017-09-26] MEDS ORDERED: LEVOFLOXACIN 250 MG TAB PO STA (20:56)
--- NOTE | 2017-09-26 21:04 | EMERGENCY ROOM VISIT NOTE ---
History Report prepared by Dennis: Josefina Fuentes Under the Supervision of: Dr. Susana Cano D.O. First contact with patient: 18:47 Chief Complaint: SHORTNESS OF BREATH Stated Complaint: COUGH,WHEEZING,SOB History of Present Illness The patient is a 67 year old female who presents to the Emergency Room with complaints of persistent cough starting 329 today. The patient suddenly developed a cough last night. She is also dry heaving after coughing. She feels nauseous. She has had a fever of 100.1. She had 2 episodes of diarrhea today. She was feeling well yesterday. Her cough is dry. She tried a nebulizer treatment today to some relief. She feels chest congestion. She has some pain in her right side around her right kidney. She denies any abdominal pain, chest pain, rhinorrhea, sore throat, melena, or hematochezia. She has dialysis 3 days a week. She did not have any problems at dialysis yesterday. She has been urinating less. She denies any hematuria or odor to her urine. She has a history of asthma, COPD, pneumonia, and bronchitis. She has experienced improvement with prednisone in the past. She denies any recent travel, dietary changes, or new pets. She did have a flu shot this season. She does not smoke. The patient had right leg surgery around 9 weeks ago. Her leg has been puffy and painful. Her leg does not seem to be worsening. She has seen her orthopedic doctor and is to be scheduled for an MRI. Source of History: patient Onset: 329 today Position: other (global) Quality: other (cough) Timing: other (persistent) Modifying Factors (Relieving): other (nebulizer) Associated Symptoms: + fevers, + nausea, + diarrhea, No sorethroat, No chest pain, No abdominal pain, No melena, No hematochezia, No urinary symptoms Note: Pt reports dry heaving, chest congestion. Review of Systems See HPI for pertinent positives & negatives. A total of 10 systems reviewed and were otherwise negative. 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 (9) Congestive heart failure (CHF) (10) Congestive heart failure (CHF) (11) Congestive heart failure with left ventricular systolic dysfunction (12) COPD (chronic obstructive pulmonary disease) (13) DIAB MANJIT WO COMPL, TYPE II OR UNSPEC TYPE, NOT UNCNTRLD (14) Diabetes (15) Diabetic foot infection (16) Diabetic ulcer of right foot (17) Elevated troponin (18) ESRD (end stage renal disease) on dialysis (19) Hypercholesterolemia (20) Hyperkalemia, diminished renal excretion (21) Hypertension (22) HYPERTENSION NOS (23) Hypoxemia (24) Kidney disease (25) Metabolic acidosis with normal anion gap and failure of bicarbonate regeneration (26) Obesity (27) Obstructive sleep apnea (28) Osteomyelitis (29) Osteomyelitis of left foot (30) Peripheral neuropathy (31) PNEUMONIA, ORGANISM NOS (32) Proteinuria (33) Pulmonary edema (34) Secondary hyperparathyroidism of renal origin (35) SOB (shortness of breath) (36) Vitamin D deficiency, unspecified (37) Volume overload Family History FH: HTN (hypertension) Social History Smoking Status: Never Smoker Drug Use: none Marital Status: Housing Status: lives with family Occupation Status: retired Current/Historical Medications Scheduled Calcium Acetate (Phosphate Bin (Phoslo 667 Mg), 667 MG PO QPM Carvedilol (Carvedilol), 25 MG PO BID Home O2 Therapy (Oxygen), 2 LITERS NA PRN Insulin Aspart (Novolog Flexpen), 1 DOSE SC TID Insulin Glargine (Lantus Solostar), 13 UNITS SC AMPM Levofloxacin (Levaquin), 500 MG PO q48 Mometasone Furoate-Formoterol (Dulera 200/5 Mcg), 2 PUFFS INH BID Prednisone (Prednisone), 0 PO DAILY Tiotropium [place] (Spiriva Handihaler), 1 CAP INH DAILY Vitamin B Cmplx/Vitc/Folic Ac (Nephrocaps), 1 CAP PO QAM Allergies Coded Allergies: Hydralazine (Verified Allergy, Intermediate, rash, 09/26/17) Isosorbide Nitrate (Verified Allergy, Unknown, ITCHING, 09/26/17) EZE Inhibitors (Verified Adverse Reaction, Unknown, DUE TO CKD, 09/26/17) Physical Exam Vital Signs Date Time Temp Pulse Resp B/P (MAP) Pulse Ox O2 Delivery O2 Flow Rate FiO2 09/26/17 23:55 80 22 138/68 90 09/26/17 22:09 37.0 74 20 134/80 92 09/26/17 21:33 90 20 149/68 88 09/26/17 19:47 92 24 138/76 92 09/26/17 19:47 Nasal Cannula 2.0 09/26/17 19:40 38.0 90 09/26/17 19:21 Room Air 09/26/17 18:43 36.6 91 18 152/77 93 Room Air Physical Exam GENERAL: alert, well appearing, well nourished, no distress, non-toxic EYE EXAM: normal conjunctiva, PERRL and EOM's grossly intact OROPHARYNX: no exudate, no erythema, lips, buccal mucosa, and tongue normal and mucous membranes are moist NECK: supple, no nuchal rigidity, no adenopathy, non-tender LUNGS: Clear to auscultation. No wheezes, rhonchi, rales. Normal chest wall mechanics HEART: no murmurs, S1 normal and S2 normal ABDOMEN: abdomen soft, non-tender, normo-active bowel sounds, no masses, no rebound or guarding. BACK: Back is symmetrical on inspection and there is no deformity, no midline tenderness, no CVA tenderness. SKIN: no rashes and no bruising UPPER EXTREMITIES: upper extremities are grossly normal. LOWER EXTREMITIES: RLE walking boot removed. Scars noted to the bilateral malleoli from prior surgery. No joint effusion. No overlying erythema or warmth. Normal pulses. NEURO EXAM: Normal sensorium, cranial nerves II-XII grossly intact, normal speech, no gross weakness of arms, no gross weakness of legs. Medical Decision & Procedures ER Provider Diagnostic Interpretation: Xray results have been interpreted by the radiologist and by me. CHEST 2 VIEWS ROUTINE CLINICAL HISTORY: 67 years-old Female presenting with cough, f/c. TECHNIQUE: PA and lateral views of the chest were obtained. COMPARISON: 07/22/2017. FINDINGS: Atherosclerosis of aortic arch. Cardiac silhouette is markedly enlarged. Pulmonary vascular prominence. Chronic left pleural effusion. Minimal bandlike opacities in the left mid and lower lung unchanged. No new focal infiltrate. No pneumothorax. Osseous structures normal. Upper abdomen normal. IMPRESSION: 1. No convincing evidence of a new focal infiltrate to suggest pneumonia. 2. Chronic left pleural effusion and left lung atelectasis or scarring. 3. Cardiomegaly with pulmonary vascular prominence suggesting volume overload. No satish pulmonary edema. Electronically signed by: Jim Redmond M.D. 09/26/2017 8:15 PM Dictated Date/Time: 09/26/2017 8:13 PM KUB CLINICAL HISTORY: 67 years-old Female presenting with n/v/d. TECHNIQUE: Single supine view of the abdomen was obtained. COMPARISON: 12/05/2006. FINDINGS: Cholecystectomy clips noted. Nonobstructive bowel gas pattern. No gross pneumoperitoneum. The liver and spleen shadows appear enlarged though this may be due to magnification. Allowing for bowel gas and stool, no calcifications to suggest nephrolithiasis. Splenic atherosclerosis noted. Pelvic phleboliths. Osseous structures normal. Left pleural effusion. IMPRESSION: 1. Apparent enlarged liver and spleen shadows though this may be affected by magnification. 2. No bowel obstruction or gross free air. Electronically signed by: Jim Redmond M.D. 09/26/2017 8:17 PM Dictated Date/Time: 09/26/2017 8:15 PM Laboratory Results 09/26/17 19:20 Red Blood Count 3.45, Mean Corpuscular Volume 98.3, Mean Corpuscular Hemoglobin 31.9, Mean Corpuscular Hemoglobin Concent 32.4, Mean Platelet Volume 9.9, Neutrophils (%) (Auto) 80.7, Lymphocytes (%) (Auto) 11.4, Monocytes (%) (Auto) 6.4, Eosinophils (%) (Auto) 1.1, Basophils (%) (Auto) 0.1, Neutrophils # (Auto) 5.78, Lymphocytes # (Auto) 0.82, Monocytes # (Auto) 0.46, Eosinophils # (Auto) 0.08, Basophils # (Auto) 0.01 09/26/17 19:20 Test 09/26/17 19:20 09/26/17 19:29 09/26/17 19:34 09/26/17 22:45 White Blood Count 7.17 K/uL (4.8-10.8) Red Blood Count 3.45 M/uL (4.2-5.4) Hemoglobin 11.0 g/dL (12.0-16.0) Hematocrit 33.9 % (37-47) Mean Corpuscular Volume 98.3 fL (80-100) Mean Corpuscular Hemoglobin 31.9 pg (25-34) Mean Corpuscular Hemoglobin Concent 32.4 g/dl (32-36) Platelet Count 195 K/uL (130-400) Mean Platelet Volume 9.9 fL (7.4-10.4) Neutrophils (%) (Auto) 80.7 % Lymphocytes (%) (Auto) 11.4 % Monocytes (%) (Auto) 6.4 % Eosinophils (%) (Auto) 1.1 % Basophils (%) (Auto) 0.1 % Neutrophils # (Auto) 5.78 K/uL (1.4-6.5) Lymphocytes # (Auto) 0.82 K/uL (1.2-3.4) Monocytes # (Auto) 0.46 K/uL (0.11-0.59) Eosinophils # (Auto) 0.08 K/uL (0-0.5) Basophils # (Auto) 0.01 K/uL (0-0.2) RDW Standard Deviation 57.0 fL (36.4-46.3) RDW Coefficient of Variation 15.8 % (11.5-14.5) Immature Granulocyte % (Auto) 0.3 % Immature Granulocyte # (Auto) 0.02 K/uL (0.00-0.02) Anion Gap 7.0 mmol/L (3-11) Est Creatinine Clear Calc Drug Dose 17.4 ml/min Estimated GFR () 16.8 Estimated GFR (Non- 14.5 BUN/Creatinine Ratio 9.8 (10-20) Calcium Level 9.0 mg/dl (8.5-10.1) Total Bilirubin 0.5 mg/dl (0.2-1) Aspartate Amino Transf (AST/SGOT) 14 U/L (15-37) Alanine Aminotransferase (ALT/SGPT) 17 U/L (12-78) Alkaline Phosphatase 129 U/L (45-117) Total Protein 7.7 gm/dl (6.4-8.2) Albumin 3.4 gm/dl (3.4-5.0) Globulin 4.3 gm/dl (2.5-4.0) Albumin/Globulin Ratio 0.8 (0.9-2) Bedside Lactic Acid Venous 1.54 mmol/L (0.90-1.70) Influenza Type A Antigen Neg for Influ A (NEG) Influenza Type B Antigen Neg for Influ B (NEG) Urine Color YELLOW Urine Appearance TURBID (CLEAR) Urine pH 5.5 (4.5-7.5) Urine Specific [place]at 1.020 (1.000-1.030) Urine Protein 3+ (NEG) Urine Glucose (UA) NEG (NEG) Urine Ketones TRACE (NEG) Urine Occult Blood 2+ (NEG) Urine Nitrite NEG (NEG) Urine Bilirubin NEG (NEG) Urine Urobilinogen NEG (NEG) Urine Leukocyte Esterase MODERATE (NEG) Urine WBC (Auto) >30 /hpf (0-5) Urine RBC (Auto) 5-10 /hpf (0-4) Urine Hyaline Casts (Auto) 0 /lpf (0-5) Urine Epithelial Cells (Auto) 10-20 /lpf (0-5) Urine Bacteria (Auto) 4+ (NEG) Laboratory results per my review. Medications Administered Medications (Trade) Dose Ordered Sig/Tu Route Start Time Stop Time Status Last Admin Dose Admin Albuterol/ Ipratropium (Duoneb) 3 ml NOW STAT INH 09/26/17 19:07 09/26/17 19:10 DC 09/26/17 19:17 3 ML Benzonatate (Tessalon Perles Cap) 100 mg NOW ONCE PO 09/26/17 19:15 09/26/17 19:16 DC 09/26/17 19:16 100 MG Acetaminophen (Tylenol Tab) 1,000 mg NOW STAT PO 09/26/17 20:56 09/26/17 20:57 DC 09/26/17 21:31 1,000 MG Prednisone (PredniSONE TAB) 60 mg NOW STAT PO 09/26/17 20:56 09/26/17 20:58 DC 09/26/17 21:31 60 MG Levofloxacin (Levaquin Tab) 750 mg NOW STAT PO 09/26/17 20:56 09/26/17 20:58 DC 09/26/17 21:31 750 MG ECG Indication: SOB/dyspnea Rate (beats per minute): 90 Rhythm: sinus rhythm Findings: T-wave inversion (lead 1, aVL, V6), prolonged QT, other (normal axis , normal QRS) Comparison ECG Date: 25-Jun-2017 Change: no significant change Change: EKG: Patient's electrocardiogram per my interpretation. ED Course 1853: The patient was evaluated in room A10. A complete history and physical exam was performed. 1906: Duoneb 3 ml INH. 1914: Benzonatate 100 mg PO. 2044: I reevaluated the patient. She is minimally improved. I updated her on the results. Patient's pulse ox was 90 on room air. She does have oxygen at home to wear PRN due to history of COPD. 2055: Prednisone 60 mg PO, Levofloxacin 750 mg PO, Acetaminophen 1000 mg PO. 2145: I reevaluated the patient. She is feeling OK. She is trying PO. 2216: I reevaluated the patient. 2252: I reevaluated the patient. 2316: I discussed the patient's case with Dr. Villareal, [facility] [place]. 2325: I reevaluated the patient. She refused straight cath. Additional bedside discussion on symptoms to watch out for. I discussed the findings and the treatment plan with the patient. She verbalizes agreement and understanding. She was discharged home. Medical Decision Differential diagnosis: Etiologies such as viral syndrome, otitis, pharyngitis, pneumonia, influenza, meningitis, urinary tract infection, sepsis, bacteremia, as well as others were entertained. Patient's initial history here most consistent with new-onset URI or influenza/ viral syndrome. Patient improved here with treatment and has had several prior similar episodes. Given prior history of COPD, patient felt adamantly that she would require steroids as well as antibiotics. Upon review of EMR, patient has had prior similar episodes and was resulted treated with Levaquin. Patient does have oxygen at home that she is able wear when necessary, and states her normal pulse ox is 80-90%. When I checked her bedside pulse ox she was 90% on room air. Patient states she did feel improved with 1-2 L of oxygen via nasal cannula. Patient with no obvious increased work of breathing here, and asking to go home. Patient does still make urine, and this was checked was found to be most consistent with urinary tract infection. Upon noting this finding,: Discussed the case with the covering product test specialist who recommended a repeat urinalysis via straight cath patient subsequently refused. He did feel that Levaquin be used for the pulmonary etiology would also be good coverage for possible urinary tract infection. Patient's presentation not otherwise consistent with pyelonephritis or other obstructive uropathy. Patient is not missed any dialysis treatments, and renal function consistent with this. Patient has chronic right flank pain which she states is unchanged and I do not feel she has any additional occult renal pathology or renal stone. Patient's recent patient not consistent with congestive heart failure or volume overload. Several times a discussed with the patient, located history and concerning presentation, she was offered admission for observation as a precaution which she declined. Patient stated she intended to take the steroids and antibiotics at home, would use her oxygen at home as needed, and wish to follow-up with her family doctor and see her product test specialist Thursday during dialysis as is her usual. Discussed with her at length symptoms to watch and return for, possible risks and complications, she verbalized understanding was agreeable with plan. Medication Reconcilliation Current Medication List: was personally reviewed by me Blood Pressure Screening Patient's blood pressure: Elevated blood pressure Blood pressure disposition: Referred to PCP Consults Time Called: 2313 Consulting Physician: Dr. Villareal, [facility] neph[facility]. Returned Call: [phone] I discussed the patient's case with him. Impression Primary Impression: URI (upper respiratory infection) Additional Impressions: Chronic obstructive pulmonary disease Acute bronchitis UTI (urinary tract infection) Scribe Attestation The scribe's documentation has been prepared under my direction and personally reviewed by me in its entirety. I confirm that the note above accurately reflects all work, treatment, procedures, and medical decision making performed by me. Departure Information Dispostion Home / Self-Care Prescriptions Levofloxacin (Levaquin) 500 Mg Tab 500 MG PO q48, #2 TAB Prov: Susana Cano, DO 09/26/17 Prednisone (Prednisone) 20 Mg Tab 0 PO DAILY, #9 TAB 3 TABS DAILY FOR 1 DAYS, THEN 2 TABS DAILY FOR 2 DAYS, THEN 1 TAB DAILY FOR 2 DAYS. Prov: Susana Cano, DO 09/26/17 Referrals No Doctor, Assigned (PCP) Patient Instructions My [facility] Additional Instructions Please call and follow-up with your family doctor the beginning of the week to recheck your symptoms. You may use Tylenol as needed for fevers and pain. Please take the steroids and antibiotics as prescribed. Please continue regularly scheduled dialysis and all of your other usually prescribed medications. You may eat and drink normally. Please continue wearing your oxygen as previously instructed. You may use your breathing treatments at home up to every 4 hours as needed for persistent cough or shortness of breath. If you feel your breathing is getting worse, you have a more productive cough, noticed blood in her sputum, persistent fevers, developed chest pain, vomiting, increased swelling in her legs, diarrhea, review of any other new concerns, please return the emergency room. Your next dose of antibiotics will be on Thursday. The next dose after that would be on Thursday. Problem Qualifiers Primary Impression: URI (upper respiratory infection) URI type: unspecified URI Qualified Codes: J06.9 - Acute upper respiratory infection, unspecified Additional Impressions: Chronic obstructive pulmonary disease COPD type: unspecified COPD Qualified Codes: J44.9 - Chronic obstructive pulmonary disease, unspecified Acute bronchitis Bronchitis organism: unspecified organism Qualified Codes: J20.9 - Acute bronchitis, unspecified UTI (urinary tract infection) Urinary tract infection type: acute cystitis Hematuria presence: with hematuria Qualified Codes: N30.01 - Acute cystitis with hematuria
[2017-09-26 22:09] VITALS: TEMP 37
[2017-09-26] MEDS ORDERED: PRED20TA PO (22:09)
[2017-09-26] MEDS ORDERED: LEVO-366 PO (22:59)
[2017-09-26 23:55] VITALS: BP 138/68; PULSE 80; O2SAT 90
--- NOTE | 2017-09-29 11:10 | Pharmacy Progress Note ---
ED Pharmacist Culture FollowUp Date of Service: Sep 29, 2017. Patient was sent home with a prescription for Levofloxacin 500mg PO Q 48 hrs x 4 days, after receiving IV Rocephin on day 1 in the ED, which should cover the e coli growing from the patient's URINE culture. Patient was given this ABX to cover the upper resp tract infection along w/ suspected UTI. No further action required.
== END 2017-09-26 23:56 | disposition home or self-care (01) ==
LOC: C.EDB 18:42 → C.EDA 23:56
DX: J44.0 Chronic obstructive pulmonary disease with (acute) lower respiratory infection (principal); N30.01 Acute cystitis with hematuria; N17.9 Acute kidney failure, unspecified; M86.60 Other chronic osteomyelitis, unspecified site; I50.9 Heart failure, unspecified; E11.9 Type 2 diabetes mellitus without complications; E78.00 Pure hypercholesterolemia, unspecified; I11.0 Hypertensive heart disease with heart failure; E87.5 Hyperkalemia; E66.9 Obesity, unspecified; G47.33 Obstructive sleep apnea (adult) (pediatric); G62.9 Polyneuropathy, unspecified; Z87.01 Personal history of pneumonia (recurrent); E55.9 Vitamin D deficiency, unspecified; Z82.49 Family history of ischemic heart disease and other diseases of the circulatory system; Z79.4 Long term (current) use of insulin; Z79.899 Other long term (current) drug therapy; Z88.8 Allergy status to other drugs, medicaments and biological substances

== ENCOUNTER 2017-09-28 16:51 | Inpatient (IN) | payer OTHER ==
[~2017-09-28] VITALS: Ht 157.5 cm; Wt 83.6 kg
[~2017-09-28 16:51] MED LIST changes: -ASPEC81 PO; +LEVO-366 PO; -OXYC-57 PO; +PRED20TA PO; -PROM25TA9 PO
[2017-09-28] MEDS ORDERED: ALBUT/IPRATROP 3MG/0.5MG NEB 3 ML VIAL INH STA (18:09)
--- NOTE | 2017-09-28 18:17 | EMERGENCY ROOM VISIT NOTE ---
History Report prepared by Dennis: Jules Michaud Under the Supervision of: Dr. Susana Cano D.O. First contact with patient: 17:58 Chief Complaint: SHORTNESS OF BREATH Stated Complaint: CANT BREATH Nursing Triage Summary: Pt seen here Sat night, neg for flu. Pt reports hx of COPD, dialysis. Pt reports SOB that is worse. Pt states uses 2L as needed. Cough. Back pain. Denies cp. History of Present Illness The patient is a 67 year old female who presents to the Emergency Room with complaints of worsening shortness of breath beginning a two days ago. The patient states she was here two nights ago for similar symptoms and was discharged on prednisone and antibiotics. She reports she went to dialysis today and could not get out of the car because she was too weak, dizzy, and short of breath. The patient notes she was able to complete dialysis. She states she went to sleep, and it 'felt like she was dying.' The patient reports she wears oxygen at home. She states she was wearing it when she tried sleeping , but it did not help. She notes she cannot lay flat to sleep because it worsens her symptoms. The patient reports sitting up helps her breathe better. The patient states also wore oxygen at dialysis, but she does not have a portable oxygen tank. She reports she used a breathing treatment yesterday, but she has not used one today. The patient notes her dry cough is also worsening. She states she developed central back pain since she left two nights ago. The patient denies fevers, chest pain, abdominal pain, vomiting, chills, and urinary symptoms. The patient's son states his was diagnosed with the flu last evening. Source of History: patient Onset: two days ago Position: other (global) Quality: other (SOB) Timing: worsening Modifying Factors (Worsening): other (lying down) Modifying Factors (Relieving): other (sitting up) Associated Symptoms: + cough (worsening), + back pain (central), + weakness , No fevers, No chills, No chest pain, No vomiting, No abdominal pain, No urinary symptoms Note: Associated symptoms: dizziness Review of Systems See HPI for pertinent positives & negatives. A total of 10 systems reviewed and were otherwise negative. 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 (9) Congestive heart failure (CHF) (10) Congestive heart failure (CHF) (11) Congestive heart failure with left ventricular systolic dysfunction (12) COPD (chronic obstructive pulmonary disease) (13) COPD exacerbation (14) DIAB MANJIT WO COMPL, TYPE II OR UNSPEC TYPE, NOT UNCNTRLD (15) Diabetes (16) Diabetic foot infection (17) Diabetic ulcer of right foot (18) Elevated troponin (19) ESRD (end stage renal disease) on dialysis (20) Hypercholesterolemia (21) Hyperkalemia, diminished renal excretion (22) Hypertension (23) HYPERTENSION NOS (24) Hypoxemia (25) Influenza A (26) Kidney disease (27) Metabolic acidosis with normal anion gap and failure of bicarbonate regeneration (28) Obesity (29) Obstructive sleep apnea (30) Osteomyelitis (31) Osteomyelitis of left foot (32) Peripheral neuropathy (33) PNEUMONIA, ORGANISM NOS (34) Proteinuria (35) Pulmonary edema (36) Secondary hyperparathyroidism of renal origin (37) SOB (shortness of breath) (38) Vitamin D deficiency, unspecified (39) Volume overload Family History FH: HTN (hypertension) Social History Smoking Status: Never Smoker Drug Use: none Marital Status: Housing Status: lives with family Occupation Status: retired Current/Historical Medications Scheduled Calcium Acetate (Phosphate Bin (Phoslo 667 Mg), 667 MG PO BID Carvedilol (Carvedilol), 25 MG PO BID Home O2 Therapy (Oxygen), 2 LITERS NA PRN Insulin Aspart (Novolog Flexpen), 1 DOSE SC TID Insulin Glargine (Lantus Solostar), 13 UNITS SC AMPM Levofloxacin (Levaquin), 500 MG PO q48 Mometasone Furoate-Formoterol (Dulera 200/5 Mcg), 2 PUFFS INH BID Prednisone (Prednisone), 0 PO DAILY Tiotropium [place] (Spiriva Handihaler), 1 CAP INH DAILY Vitamin B Cmplx/Vitc/Folic Ac (Nephrocaps), 1 CAP PO QAM Allergies Coded Allergies: Hydralazine (Verified Allergy, Intermediate, rash, 09/28/17) Isosorbide Nitrate (Verified Allergy, Unknown, ITCHING, 09/28/17) EZE Inhibitors (Verified Adverse Reaction, Unknown, DUE TO CKD, 09/28/17) Physical Exam Vital Signs Date Time Temp Pulse Resp B/P (MAP) Pulse Ox O2 Delivery O2 Flow Rate FiO2 09/28/17 19:18 84 09/28/17 18:46 84 20 127/91 97 Room Air 09/28/17 18:12 98 Nasal Cannula 3.0 09/28/17 18:10 97 Nasal Cannula 3.0 09/28/17 17:03 84 Room Air 09/28/17 17:02 Nasal Cannula 2.5 09/28/17 17:01 36.8 92 22 137/67 84 Room Air Physical Exam GENERAL: alert, well appearing, well nourished, no distress, non-toxic EYE EXAM: normal conjunctiva, PERRL and EOM's grossly intact OROPHARYNX: no exudate, no erythema, lips, buccal mucosa, and tongue normal and mucous membranes are moist NECK: supple, no nuchal rigidity, no adenopathy, non-tender LUNGS: Diminished breath sounds throughout. No rales, rhonchi, or wheezes. Normal chest wall mechanics HEART: no murmurs, S1 normal and S2 normal ABDOMEN: abdomen soft, non-tender, normo-active bowel sounds, no masses, no rebound or guarding. BACK: Back is symmetrical on inspection and there is no deformity, no midline tenderness, no CVA tenderness. SKIN: no rashes and no bruising UPPER EXTREMITIES: upper extremities are grossly normal. LOWER EXTREMITIES: No pitting edema. NEURO EXAM: Normal sensorium, cranial nerves II-XII intact, normal speech, no weakness of arms, no weakness of legs. Medical Decision & Procedures ER Provider Diagnostic Interpretation: Radiology results have been interpreted by the radiologist and reviewed by me. CHEST ONE VIEW PORTABLE HISTORY: 67 years-old Female cough acute cough COMPARISON: Chest radiograph 09/26/2017 TECHNIQUE: Portable AP view of the chest FINDINGS: Cardiac silhouette remains enlarged which is unchanged. There is pulmonary vascular congestion without overt pulmonary edema. No pneumothorax. Blunting of the bilateral costophrenic angles suggests trace effusions with linear subsegmental left basilar opacities which appear unchanged. Linear subsegmental atelectasis or scarring redemonstrated within the lateral left midlung. Bones of the chest appear grossly intact. IMPRESSION: 1. Cardiomegaly and pulmonary vascular congestion without overt pulmonary edema. 2. Trace bilateral pleural effusions with subsegmental left basilar and lateral left midlung atelectasis/scarring. The above report was generated using voice recognition software. It may contain grammatical, syntax or spelling errors. Electronically signed by: Solo Roberts M.D. 09/28/2017 6:45 PM Dictated Date/Time: 09/28/2017 6:43 PM Laboratory Results Test 09/28/17 18:31 09/28/17 18:40 Immature Granulocyte % (Auto) 0.5 % White Blood Count 8.23 K/uL (4.8-10.8) Red Blood Count 3.54 M/uL (4.2-5.4) Hemoglobin 11.2 g/dL (12.0-16.0) Hematocrit 35.1 % (37-47) Mean Corpuscular Volume 99.2 fL (80-100) Mean Corpuscular Hemoglobin 31.6 pg (25-34) Mean Corpuscular Hemoglobin Concent 31.9 g/dl (32-36) Platelet Count 213 K/uL (130-400) Mean Platelet Volume 9.8 fL (7.4-10.4) Neutrophils (%) (Auto) 90.2 % Lymphocytes (%) (Auto) 4.3 % Monocytes (%) (Auto) 4.9 % Eosinophils (%) (Auto) 0.0 % Basophils (%) (Auto) 0.1 % Neutrophils # (Auto) 7.43 K/uL (1.4-6.5) Lymphocytes # (Auto) 0.35 K/uL (1.2-3.4) Monocytes # (Auto) 0.40 K/uL (0.11-0.59) Eosinophils # (Auto) 0.00 K/uL (0-0.5) Basophils # (Auto) 0.01 K/uL (0-0.2) Immature Granulocyte # (Auto) 0.04 K/uL (0.00-0.02) Phosphorus Level 4.1 mg/dl (2.5-4.9) Magnesium Level 2.2 mg/dl (1.8-2.4) Total Bilirubin 0.3 mg/dl (0.2-1) Aspartate Amino Transf (AST/SGOT) 41 U/L (15-37) Alanine Aminotransferase (ALT/SGPT) 27 U/L (12-78) Alkaline Phosphatase 133 U/L (45-117) Total Protein 8.1 gm/dl (6.4-8.2) Albumin 3.4 gm/dl (3.4-5.0) Globulin 4.7 gm/dl (2.5-4.0) Albumin/Globulin Ratio 0.7 (0.9-2) Beta-Hydroxybutyric Acid 1.15 mg/dL (0.2-2.81) Influenza Type A Antigen POS for Influ A (NEG) Influenza Type B Antigen Neg for Influ B (NEG) Laboratory results per my review. Medications Administered Medications (Trade) Dose Ordered Sig/Tu Route Start Time Stop Time Status Last Admin Dose Admin Albuterol/ Ipratropium (Duoneb) 3 ml NOW STAT INH 09/28/17 18:09 09/28/17 18:13 DC 09/28/17 18:17 3 ML Methylprednisolone Sodium Succinate (Solu-Medrol IV) 60 mg NOW STAT IV 09/28/17 18:40 09/28/17 18:41 DC 09/28/17 18:45 60 MG Oseltamivir Phosphate (Tamiflu Cap) 75 mg NOW STAT PO 09/28/17 19:29 09/28/17 19:30 DC 09/28/17 20:08 75 MG ECG Indication: SOB/dyspnea Rate (beats per minute): 92 Rhythm: sinus rhythm Findings: no acute ischemic change, other (Poor quality tracing. Normal axis. Normal QRS. Prolong QTc.) Change: EKG: Patient's electrocardiogram per my interpretation. ED Course 1758: The patient was evaluated in room B02. A complete history and physical exam was performed. 1808: Ordered Duoneb 3ml INH 1839: Ordered Methylprednisolone Sodium Succinate 60mg IV 1928: Ordered Tamiflu Cap 75mg PO 1931: I discussed the patient's case with Dr. Velazquez, [facility] Hospitalist. The patient will be evaluated for further management and care. 1932: Upon reevaluation, the patient is resting comfortably. I discussed the findings and the treatment plan with the patient. She expresses agreement and understanding. Medical Decision Differential diagnoses includes but is not limited to pneumonia, bronchitis, COPD/Asthma exacerbation, pneumothorax, pulmonary embolism, congestive heart failure, acute coronary syndrome Pt presents with worsening COPD exacerbation and now positive for the flu. Very likely sx 2 days ago from the flu and possible poor collection technique accounting for pt's negative flu prior. She was able to complete dialysis today. Patient states she has been compliant with her antibiotics and steroids at home. Patient states she has continued use her nebulizer treatments more often and was using her oxygen at home of the last several days as well. Patient states she felt she was not improving and so return to the emergency room. Patient now with worsening systemic symptoms including fatigue and dizziness likely secondary to the flu. Patient here given additional IV steroids, started on Tamiflu. Discussed antibiotics with hospitalist and they will make changes after their evaluation. Also updated them on conversation previously with nephrology and prior UTI which now appears to have grown out Escherichia coli, sensitivities were pending. Patient's labs otherwise appear stable, no significant leukocytosis. Patient's hyperglycemia likely exacerbated from use of steroids. Patient hemodynamically stable here, was given neb treatments while emergency room and her main on oxygen via nasal cannula and felt mild improvement. Patient has not missed any episodes of dialysis or missed any of her medications, presentation not consistent with volume overload or congestive heart failure. No evidence of new infiltrate or effusion on chest x-ray. Patient was agreeable with plan for additional hospitalist evaluation and treatment and likely admission. Medication Reconcilliation Current Medication List: was personally reviewed by me Blood Pressure Screening Patient's blood pressure: Elevated blood pressure Blood pressure disposition: Elevated BP felt to be situational Consults Consulting Physician: Dr. Velazquez [facility] Hospitalist Returned Call: [phone] I discussed the patient's case with Dr. Velazquez [facility] Hospitalist. The patient will be evaluated for further management and care. Impression Primary Impression: COPD exacerbation Additional Impressions: Influenza A Chronic kidney disease UTI (urinary tract infection) Generalized weakness Scribe Attestation The scribe's documentation has been prepared under my direction and personally reviewed by me in its entirety. I confirm that the note above accurately reflects all work, treatment, procedures, and medical decision making performed by me. Departure Information Dispostion Being Evaluated By Hospitalist Referrals No Doctor, Assigned (PCP) Patient Instructions My [facility] Problem Qualifiers Additional Impressions: Chronic kidney disease Chronic kidney disease stage: on chronic dialysis Qualified Codes: N18.6 - End stage renal disease; Z99.2 - Dependence on renal dialysis UTI (urinary tract infection) Urinary tract infection type: acute cystitis Hematuria presence: without hematuria Qualified Codes: N30.00 - Acute cystitis without hematuria
[2017-09-28] MEDS ORDERED: METHYLPREDNISOLONE 125 MG VIAL IV STA (18:40)
--- NOTE | 2017-09-28 18:46 | DIAGNOSTIC IMAGING REPORT ---
CHEST ONE VIEW PORTABLE HISTORY: 67 years-old Female cough acute cough COMPARISON: Chest radiograph 09/26/2017 TECHNIQUE: Portable AP view of the chest FINDINGS: Cardiac silhouette remains enlarged which is unchanged. There is pulmonary vascular congestion without overt pulmonary edema. No pneumothorax. Blunting of the bilateral costophrenic angles suggests trace effusions with linear subsegmental left basilar opacities which appear unchanged. Linear subsegmental atelectasis or scarring redemonstrated within the lateral left midlung. Bones of the chest appear grossly intact. IMPRESSION: 1. Cardiomegaly and pulmonary vascular congestion without overt pulmonary edema. 2. Trace bilateral pleural effusions with subsegmental left basilar and lateral left midlung atelectasis/scarring. The above report was generated using voice recognition software. It may contain grammatical, syntax or spelling errors. Electronically signed by: Solo Roberts M.D. 09/28/2017 6:45 PM Dictated Date/Time: 09/28/2017 6:43 PM
[2017-09-28 18:56] LABS: BASO % 0.1 %; BASO ABS # 0.01 K/uL (0-0.2); HEMATOCRIT 35.1 % (37-47); HEMOGLOBIN 11.2 g/dL (12.0-16.0); IG# 0.04 K/uL (0.00-0.02); LYMPH % 4.3 %; LYMPH ABS # 0.35 K/uL (1.2-3.4); MEAN CELL VOLUME 99.2 fL (80-100); MEAN CORPUSCULAR HEMOGLOBIN 31.6 pg (25-34); MEAN CORPUSCULAR HGB CONC 31.9 g/dl (32-36); MEAN PLATELET VOLUME 9.8 fL (7.4-10.4); MONO % 4.9 %; NEUT % 90.2 %; NEUT ABS # 7.43 K/uL (1.4-6.5); PLATELET COUNT 213 K/uL (130-400); RED CELL DISTRIBUTION WIDTH CV 15.8 % (11.5-14.5); RED CELL DISTRIBUTION WIDTH SD 57.9 fL (36.4-46.3); WHITE BLOOD COUNT 8.23 K/uL (4.8-10.8)
[2017-09-28 19:06] LABS: ALBUMIN 3.4 gm/dl (3.4-5.0); CREATININE 2.59 mg/dl (0.60-1.20); PHOSPHORUS 4.1 mg/dl (2.5-4.9); POTASSIUM 4.4 mmol/L (3.5-5.1); TOTAL PROTEIN 8.1 gm/dl (6.4-8.2)
[2017-09-28 19:24] LABS: INFLUENZA B ANTIGEN Neg for Influ B (NEG)
[2017-09-28] MEDS ORDERED: OSELTAMIVIR PHOSPHATE 75 MG CAP PO STA (19:29)
--- NOTE | 2017-09-28 19:52 | History and Physical ---
History & Physical Date & Time of Service: Sep 28, 2017 at 19:48 Chief Complaint: Cant Breath Primary Care Physician: Karla Todd M.D. History of Present Illness Source: patient, hospital records 66 y/o F Hx ESRD, COPD, Diastolic CHF, DMII, HTN, HPL. Presents with SOB x 3 days. States she had a fever 1 or 2 days prior. The pt was evaluated in the ER 2 days prior and discharged at her own request with treatment for a presumed COPD exacerbation. She returns to the hospital as her SOB has not improved. She is hypoxic on arrival. A rapid flu is (+) for influenza A. The pt admits to a productive cough. She denies CP, N/V, diarrhea or dysuria. She is able to urinate a small amount daily despite requiring dialysis and a UA from her previous visit proved (+) for E Coli. Past Medical/Surgical History 1. ESRD - dialysis 2. COPD 3. Diastolic CHF 4. T2DM 5. Osteomyelitis 6. S/P R 3rd Toe Amputation Family History FH: HTN (hypertension) Social History Smoking Status: Never Smoker Drug Use: none Marital Status: Housing status: lives with family Occupational Status: retired Immunizations History of Influenza Vaccine: Yes Influenza Vaccine Date: Jul 08, 2011 History of Tetanus Vaccine?: No History of Pneumococcal: No Pneumococcal Date: Mar 07, 2010 History of Hepatitis B Vaccine: No Multi-Drug Resistant Organisms History of MDRO: Yes Type of MDRO: MRSA Allergies Coded Allergies: Hydralazine (Verified Allergy, Intermediate, rash, 09/28/17) Isosorbide Nitrate (Verified Allergy, Unknown, ITCHING, 09/28/17) EZE Inhibitors (Verified Adverse Reaction, Unknown, DUE TO CKD, 09/28/17) Home Medications Scheduled Calcium Acetate (Phosphate Bin (Phoslo 667 Mg), 667 MG PO BID Carvedilol (Carvedilol), 25 MG PO BID Home O2 Therapy (Oxygen), 2 LITERS NA PRN Insulin Aspart (Novolog Flexpen), 1 DOSE SC TID Insulin Glargine (Lantus Solostar), 13 UNITS SC AMPM Levofloxacin (Levaquin), 500 MG PO q48 Mometasone Furoate-Formoterol (Dulera 200/5 Mcg), 2 PUFFS INH BID Prednisone (Prednisone), 0 PO DAILY Tiotropium [place] (Spiriva Handihaler), 1 CAP INH DAILY Vitamin B Cmplx/Vitc/Folic Ac (Nephrocaps), 1 CAP PO QAM Review of Systems Constitutional: + fever (2 days ago) Eyes: No worsening of vision ENT: No hearing loss, No unusual epistaxis, No nasal symptoms Respiratory: + cough, + sputum, + shortness of breath, + dyspnea on exertion, + dyspnea at rest, No wheezing Cardiovascular: No chest pain, No orthopnea, No PND Abdomen: No pain, No nausea, No vomiting Musculoskeletal: No joint pain Genitourinary - Female: No dysuria, No urinary frequency, No urinary urgency Neurologic: No memory loss, No weakness Psychiatric: No depression symptoms Endocrine: No fatigue Hematologic / Lymphatic: No abnormal bleeding/bruising Integumentary: No rash Allergic / Immunologic: No environmental allergies Physical Exam Vital Signs Date Time Temp Pulse Resp B/P (MAP) Pulse Ox O2 Delivery O2 Flow Rate FiO2 09/28/17 19:18 84 09/28/17 18:46 84 20 127/91 97 Room Air 09/28/17 18:12 98 Nasal Cannula 3.0 09/28/17 18:10 97 Nasal Cannula 3.0 09/28/17 17:03 84 Room Air 09/28/17 17:02 Nasal Cannula 2.5 09/28/17 17:01 36.8 92 22 137/67 84 Room Air General Appearance: WD/WN Head: normocephalic Eyes: normal inspection ENT: normal ENT inspection Neck: supple, no JVD Respiratory/Chest: chest non-tender, + pertinent finding (Poor air movement - cannot discern clear crackles or wheezing) Cardiovascular: regular rate, rhythm, no edema, no gallop, + systolic murmur Abdomen/GI: normal bowel sounds, non tender, soft Back: normal inspection Extremities/Musculoskelatal: normal inspection, no calf tenderness, normal capillary refill, no pedal edema, normal range of motion Neurologic/Psych: manager care management II-XII nml as tested, no motor/sensory deficits, alert, oriented x 3 Skin: normal color Diagnostics Laboratory Results Results Past 24 Hours Test 09/28/17 18:31 09/28/17 18:40 Range/Units White Blood Count 8.23 4.8-10.8 K/uL Red Blood Count 3.54 4.2-5.4 M/uL Hemoglobin 11.2 12.0-16.0 g/dL Hematocrit 35.1 37-47 % Mean Corpuscular Volume 99.2 80-100 fL Mean Corpuscular Hemoglobin 31.6 25-34 pg Mean Corpuscular Hemoglobin Concent 31.9 32-36 g/dl Platelet Count 213 130-400 K/uL Mean Platelet Volume 9.8 7.4-10.4 fL Neutrophils (%) (Auto) 90.2 % Lymphocytes (%) (Auto) 4.3 % Monocytes (%) (Auto) 4.9 % Eosinophils (%) (Auto) 0.0 % Basophils (%) (Auto) 0.1 % Neutrophils # (Auto) 7.43 1.4-6.5 K/uL Lymphocytes # (Auto) 0.35 1.2-3.4 K/uL Monocytes # (Auto) 0.40 0.11-0.59 K/uL Eosinophils # (Auto) 0.00 0-0.5 K/uL Basophils # (Auto) 0.01 0-0.2 K/uL RDW Standard Deviation 57.9 36.4-46.3 fL RDW Coefficient of Variation 15.8 11.5-14.5 % Immature Granulocyte % (Auto) 0.5 % Immature Granulocyte # (Auto) 0.04 0.00-0.02 K/uL Sodium Level 132 136-145 mmol/L Potassium Level 4.4 3.5-5.1 mmol/L Chloride Level 90 98-107 mmol/L Carbon Dioxide Level 34 21-32 mmol/L Anion Gap 8.0 3-11 mmol/L Blood Urea Nitrogen 27 7-18 mg/dl Creatinine 2.59 0.60-1.20 mg/dl Est Creatinine Clear Calc Drug Dose 20.9 ml/min Estimated GFR () 21.1 Estimated GFR (Non- 18.2 BUN/Creatinine Ratio 10.6 10-20 Random Glucose 430 70-99 mg/dl Calcium Level 8.0 8.5-10.1 mg/dl Phosphorus Level 4.1 2.5-4.9 mg/dl Magnesium Level 2.2 1.8-2.4 mg/dl Total Bilirubin 0.3 0.2-1 mg/dl Aspartate Amino Transf (AST/SGOT) 41 15-37 U/L Alanine Aminotransferase (ALT/SGPT) 27 12-78 U/L Alkaline Phosphatase 133 45-117 U/L Total Protein 8.1 6.4-8.2 gm/dl Albumin 3.4 3.4-5.0 gm/dl Globulin 4.7 2.5-4.0 gm/dl Albumin/Globulin Ratio 0.7 0.9-2 Beta-Hydroxybutyric Acid 1.15 0.2-2.81 mg/dL Influenza Type A Antigen POS for Influ A NEG Influenza Type B Antigen Neg for Influ B NEG Diagnostic Radiology CXR: 1. Cardiomegaly and pulmonary vascular congestion without overt pulmonary edema. 2. Trace bilateral pleural effusions with subsegmental left basilar and lateral left midlung atelectasis/scarring. EKG Sinus, incomplete L bundle, prolonged QT - no evidence of acute ischemia Impression Assessment and Plan 66 y/o F Hx ESRD, COPD, Diastolic CHF, DMII, HTN, HPL. Presents with SOB x 3 days. States she had a fever 1 or 2 days prior. The pt was evaluated in the ER 2 days prior and discharged at her own request with treatment for a presumed COPD exacerbation. She returns to the hospital as her SOB has not improved. She is hypoxic on arrival. A rapid flu is (+) for influenza A. The pt admits to a productive cough. She denies CP, N/V, diarrhea or dysuria. She is able to urinate a small amount daily despite requiring dialysis and a UA from her previous visit proved (+) for E Coli. 1) SOB - will treat for COPD exacerbation in addition to influenza. Placed on Duonebs/Albuterol, Solumedrol, Abx,02 protocol, Tamiflu. 2) ESRD - she was able t attend dialysis prior to admission and is due Wed. Nephrology should be consulted if she remains hospitalized. 3) DM - high glu on admission likely due to Prednisone use - will provide additional Lantus and a SS - drip if needed. 4) Diastolic CHF - euvolemic at present - cont B gladys 5) UTI - should be covered by Doxy provided for COPD - f/u sensitivities AM 6) QT is prolonged on EKG - she was placed on Levaquin 2 days ago - we have changed this to Doxycycline - repeat EKG AM - pt to be monitored on telemetry - will check Mg as she is a dialysis pt. Full code - Heparin prophylaxis Total time for this admit including review of labs, meds, imaging, EKG, records - discussion with pt and ER attending - 37 min Level of Care Telemetry Resuscitation Status FULL RESUSCITATION VTE Prophylaxis Given or contraindicated: Unfractionated heparin SQ
[2017-09-28] MEDS ORDERED: MoRPHine SULFATE 2 MG/ML CARP IV PRN (20:00)
[2017-09-28] MEDS ORDERED: ACETAMINOPHEN 325 MG TAB PO PRN (20:00)
[2017-09-28] MEDS ORDERED: ONDANSETRON INJ 2 MG/ML 2 ML VIAL IV PRN (20:00)
[2017-09-28] MEDS ORDERED: POLYETHYLENE (MIRALAX) 17 GM PACK PO PRN (20:00)
[2017-09-28] MEDS ORDERED: ALBUTEROL 0.083% NEBU SOLN 3 ML VIAL INH PRN ×2 (20:30)
[2017-09-28 21:00] VITALS: BP 151/79; PULSE 92; TEMP 36.8; O2SAT 93; BMI 34.1
[2017-09-28] MEDS ORDERED: INSULIN GLARGINE SOLOSTAR 100 UNITS/ML 3 ML PEN SC SCH (21:00)
[2017-09-28] MEDS: ALBUT/IPRATROP 3MG/0.5MG NEB 3 ML VIAL INH SCH (21:00)
[2017-09-28] MEDS ORDERED: INSULIN GLARGINE SOLOSTAR 100 UNITS/ML 3 ML PEN SQ STA (21:21)
[2017-09-28] MEDS ORDERED: DEXTROSE 50% 50 ML SYR IV PRN (21:30)
[2017-09-28] MEDS ORDERED: GLUCAGON FOR INJ 1 MG VIAL SQ PRN (21:30)
[2017-09-28] MEDS ORDERED: GLUCOSE 10 TABS/TUBE PO PRN (21:30)
[2017-09-28] MEDS ORDERED: GLUCOSE 40% GEL 15 GM TUBE PO PRN (21:30)
[2017-09-28] MEDS: CARVEDILOL 25 MG TAB PO SCH (21:57)
[2017-09-28] MEDS: INSULIN ASPART 100 UNITS/ML 3 ML PEN SC SCH (22:11)
[2017-09-28] MEDS: HEPARIN SOD 5000 UNIT/0.5 ML CARP SQ SCH (22:12)
[2017-09-28 23:22] VITALS: BP 138/79; PULSE 82; TEMP 36.8; O2SAT 98
[2017-09-29] VITALS (11 sets, daily range): BP systolic 117–144; BP diastolic 69–94; PULSE 69–80; TEMP 36.4–36.9; O2SAT 94–100; BMI 34.0
[2017-09-29] MEDS ORDERED: INSULIN HUMAN REGULAR PER UNIT 8 UNITS in SYRINGE 7.92 ML IV SCH (00:45)
[2017-09-29] MEDS ORDERED: PHARMACY GLYCEMIC MGMT CONSULT PRN (00:45)
[2017-09-29] MEDS ORDERED: INSULIN HUMAN REGULAR PER UNIT 8 UNITS in SYRINGE 0 ML IV SCH (00:45)
[2017-09-29] MEDS: INSULIN ASPART 100 UNITS/ML 3 ML PEN SC SCH ×6 (00:47→21:04)
[2017-09-29] MEDS: ALBUT/IPRATROP 3MG/0.5MG NEB 3 ML VIAL INH SCH ×4 (01:52→20:04)
[2017-09-29] MEDS: METHYLPREDNISOLONE IV 40 MG in SYRINGE 0 ML IV SCH ×3 (02:29→20:59)
[2017-09-29] MEDS: HEPARIN SOD 5000 UNIT/0.5 ML CARP SQ SCH ×3 (06:34→21:05)
[2017-09-29] MEDS: DOXYCYCLINE HYCLATE 100 MG CAP PO SCH ×3 (08:48→21:00)
[2017-09-29] MEDS: NEPHROCAPS PO SCH (08:48)
[2017-09-29] MEDS: CALCIUM ACETATE 667MG GELCAP PO SCH ×2 (08:48→17:08)
[2017-09-29] MEDS: CARVEDILOL 25 MG TAB PO SCH ×2 (08:49→21:00)
[2017-09-29] MEDS ORDERED: LEVOFLOXACIN 500 MG TAB PO SCH (09:00)
[2017-09-29] MEDS ORDERED: INSULIN GLARGINE SOLOSTAR 100 UNITS/ML 3 ML PEN SC SCH ×2 (09:15→16:45)
[2017-09-29] MEDS: INSULIN GLARGINE SOLOSTAR 100 UNITS/ML 3 ML PEN SC SCH (11:54)
--- NOTE | 2017-09-29 13:28 | Pharmacy Progress Note ---
Glycemic Control Intl Consult Date of Service Sep 29, 2017. Scope Glycemic Pharmacist consulted by Dr Montes on 09/28/17 for glycemic control and to write orders per [facility] inpatient glycemic control protocol Objective Weight (Kilograms): 84.300 Accuchecks BSG (last 24hrs): Test 09/28/17 18:31 09/28/17 21:46 09/28/17 23:57 09/29/17 03:59 Random Glucose 430 mg/dl (70-99) Bedside Glucose 472 mg/dl (70-90) 413 mg/dl (70-90) 92 mg/dl (70-90) Test 09/29/17 06:32 09/29/17 11:19 Bedside Glucose 143 mg/dl (70-90) 325 mg/dl (70-90) Laboratory Data (last 24hrs) Test 09/28/17 18:31 Anion Gap 8.0 mmol/L BUN/Creatinine Ratio 10.6 Blood Urea Nitrogen 27 mg/dl Creatinine 2.59 mg/dl Potassium Level 4.4 mmol/L Sodium Level 132 mmol/L White Blood Count 8.23 K/uL Red Blood Count 3.54 M/uL Hemoglobin 11.2 g/dL Hematocrit 35.1 % Mean Corpuscular Volume 99.2 fL Mean Corpuscular Hemoglobin 31.6 pg Mean Corpuscular Hemoglobin Concent 31.9 g/dl Platelet Count 213 K/uL Mean Platelet Volume 9.8 fL Neutrophils (%) (Auto) 90.2 % Lymphocytes (%) (Auto) 4.3 % Monocytes (%) (Auto) 4.9 % Eosinophils (%) (Auto) 0.0 % Basophils (%) (Auto) 0.1 % Neutrophils # (Auto) 7.43 K/uL Lymphocytes # (Auto) 0.35 K/uL Monocytes # (Auto) 0.40 K/uL Eosinophils # (Auto) 0.00 K/uL Basophils # (Auto) 0.01 K/uL HbA1c * A1c result is likely somewhat unreliable in ESRD patients d/t interactions between the A1c analyzing technique and high levels of urea in ESRD, reduced RBC life span, iron deficiency anemia, and EPO administration. HbA1c > 7.5% in ESRD patient may overestimate the extent of hyperglycemia in ESRD patients. Recent Pertinent Medications Outpatient Anti-diabetic Regimen: * Lantus 13 units SQ BID * NovoLog 10 units SQ TID + SSI Risk Factors for Insulin Resistance: * Steroids * Infection Assessment & Plan ASSESSMENT: * 67yo T2DM female well known to pharmacy from previous admissions/glycemic consults * Pt typically requires ~ 60 units of insulin per day while admitted, however, pt is ordered RTC high dose IV solumedrol 40mg IV Q8hrs. * An additional ~ 0.4 units/kg/day (34 units) will be needed to for this severe steroid induced hyperglycemia * Will change from 60 units/day to ~ 90-100 units/day for steroid induced hyperglycemia PLAN FOR INPATIENT GLYCEMIC CONTROL: * Basal insulin * Lantus 20 units SQ BID * Start with Lantus load today of 30 units SQ x 1 then 20 units SQ BID * Typically full 24hr insulin dose if given first (40 units) then start 20 units SQ BID but will give slightly less d/t CKD/HD * Bolus insulin * NovoLog per scale ACHS or Q6hrs while NPO * Goal Range: Low 120 mg/dL - High 160 mg/dL * Correction Factor: 20 mg/dL/unit * Nutritional / Prandial insulin per carb ratio of 1 unit per 6 grams CHO consumed * Please note that the plan above was derived based on current level of insulin resistance and hospital stress. These recommendations are appropriate for inpatient admission only. Plan of care upon discharge will need to be reassessed to avoid potential outpatient hypo/hyperglycemia. Thank you.
--- NOTE | 2017-09-29 15:09 | Hospitalist Progress Note ---
Hospitalist Progress Note Date of Service Sep 29, 2017. (Apple Gomez ., PA-C) Subjective Pt evaluation today including: conversation w/ patient, physical exam, lab review, review of studies, review of inpatient medication list Patient resting in bed. Feels improved since admission but still feels lousy. +body aches, non-productive cough, SOB, fatigue, decreased appetite. Still have little UO (on HD). Denies urinary symptoms. Currently requiring O2 supplement- states she has PRN O2 at home which she rarely uses Has seen Dr. Madrigal in the past for COPD/asthma- never smoker, secondhand smoke exposure from father. Patient denies any fever, chills, sweats, lightheadedness, dizziness, vision changes, CP, palpitations, edema, wheezing, abdominal pain, nausea, vomiting, diarrhea, urinary symptoms, melena, numbness/tingling, weakness, anxiety/ depression, active bleeding, or new skin discoloration/changes. (Apple Gomez ., PA-C) Medications Current Inpatient Medications Medications (Trade) Dose Ordered Sig/Tu Route Start Time Stop Time Status Last Admin Dose Admin Calcium Acetate (Phoslo Cap) 667 mg BIDM PO 09/29/17 07:30 10/29/17 07:59 09/29/17 08:48 667 MG Carvedilol (Coreg Tab) 25 mg BID PO 09/28/17 21:00 10/28/17 20:59 09/29/17 08:49 25 MG Vitamin B Complex/ Vit C/Folic Acid (Nephrocaps) 1 cap QAM PO 09/29/17 09:00 10/29/17 08:59 09/29/17 08:48 1 CAP Heparin Sodium (Porcine) (Heparin Sq 5000 Unit/0.5ml) 5,000 unit Q8 SQ 09/28/17 22:00 10/28/17 21:59 09/29/17 06:34 5,000 UNIT Acetaminophen (Tylenol Tab) 650 mg Q4H PRN PO 09/28/17 20:00 10/28/17 19:59 09/28/17 22:17 650 MG Ondansetron HCl (Zofran Inj) 4 mg Q6H PRN IV 09/28/17 20:00 10/28/17 19:59 Morphine Sulfate (MoRPHine SULFATE INJ) 2 mg Q30M PRN IV 09/28/17 20:00 10/12/17 19:59 Polyethylene (Miralax Powder Packet) 17 gm DAILY PRN PO 09/28/17 20:00 10/28/17 19:59 Albuterol/ Ipratropium (Duoneb) 3 ml Q6R INH 09/28/17 21:00 10/28/17 20:59 09/29/17 07:32 3 ML Albuterol Sulfate (Ventolin 0.083% 2.5MG/3ML Neb) 2.5 mg Q4R PRN INH 09/28/17 20:30 10/28/17 20:29 Methylprednisolone Sodium Succinate 40 mg/Syringe 0.64 ml @ 1.5 mls/min Q8H IV 09/29/17 02:00 10/29/17 01:59 09/29/17 10:00 1.5 MLS/MIN Doxycycline Hyclate (Vibramycin Cap) 100 mg BID PO 09/29/17 08:00 10/06/17 07:59 09/29/17 09:04 100 MG Oseltamivir Phosphate (Tamiflu Susp) 30 mg WeFr@1800 PO 09/30/17 18:00 10/02/17 18:30 Insulin Aspart (novoLOG ASPART) SLIDING SCALE G... ACHS SC 09/28/17 21:00 10/28/17 20:59 09/29/17 11:53 16 UNITS Glucose (Glucose 40% Gel) 15-30 GRAMS 15 GRAMS... UD PRN PO 09/28/17 21:30 10/28/17 21:29 Glucose (Glucose Chew Tab) 4-8 Tablets 4 Tabl... UD PRN PO 09/28/17 21:30 10/28/17 21:29 Dextrose (Dextrose 50% 50ML Syringe) 25-50ML OF 50% DW IV FOR... UD PRN IV 09/28/17 21:30 10/28/17 21:29 Glucagon (Glucagon Inj) 1 mg UD PRN SQ 09/28/17 21:30 10/28/17 21:29 Miscellaneous Information (Consult Glycemic Management Pharmacy) 1 ea UD PRN N/A 09/29/17 00:45 10/29/17 00:44 Insulin Glargine (Lantus Solostar Pen) 20 units BID SC 09/29/17 10:15 10/29/17 10:14 Future hold 09/29/17 11:54 20 UNITS Insulin Glargine (Lantus Solostar Pen) 30 units TODAY@1645 CA 09/29/17 16:45 09/29/17 23:59 Insulin Aspart (novoLOG ASPART) SLIDING SCALE G... TODAY@0000,0400 CA 09/30/17 00:00 09/30/17 04:01 (Apple Gomez, SUDARSHANC) Objective Vital Signs Date Time Temp Pulse Resp B/P (MAP) Pulse Ox O2 Delivery O2 Flow Rate FiO2 09/29/17 12:00 Nasal Cannula 3.0 09/29/17 10:55 36.9 80 22 138/80 (99) 94 Nasal Cannula 2.0 09/29/17 08:00 Nasal Cannula 3.0 09/29/17 07:33 78 16 98 Nasal Cannula 3.0 09/29/17 06:58 36.4 78 18 144/94 (111) 100 Nasal Cannula 2.0 09/29/17 04:06 36.6 77 19 117/69 (85) 95 Nasal Cannula 3.0 09/29/17 04:00 95 Nasal Cannula 3.0 09/29/17 00:00 98 Nasal Cannula 3.0 09/28/17 23:22 36.8 82 18 138/79 (98) 98 Nasal Cannula 3.0 09/28/17 21:00 36.8 92 151/79 93 Nasal Cannula 2.0 09/28/17 20:56 87 22 130/76 96 09/28/17 20:07 86 20 179/86 96 Nasal Cannula 3.0 09/28/17 19:18 84 09/28/17 18:46 84 20 127/91 97 Room Air 09/28/17 18:12 98 Nasal Cannula 3.0 09/28/17 18:10 97 Nasal Cannula 3.0 09/28/17 17:03 84 Room Air 09/28/17 17:02 Nasal Cannula 2.5 09/28/17 17:01 36.8 92 22 137/67 84 Room Air (Apple Gomez, SUDARSHANC) Physical Exam General Appearance: no apparent distress, + obese, + pertinent finding (O2 NC ) Eyes: normal inspection, PERRL ENT: hearing grossly normal Neck: supple Respiratory/Chest: lungs clear, no respiratory distress, no accessory muscle use, + decreased breath sounds (throughout ) Cardiovascular: regular rate, rhythm Abdomen: normal bowel sounds, non tender, soft Extremities: no pedal edema, no calf tenderness Neurologic/Psychiatric: alert, normal mood/affect, oriented x 3 Skin: normal color, warm/dry, no rash (Apple Gomez, PAValC) Laboratory Results Last 24 Hours Test 09/28/17 18:31 09/28/17 18:40 09/28/17 21:00 09/28/17 21:46 White Blood Count 8.23 K/uL Red Blood Count 3.54 M/uL Hemoglobin 11.2 g/dL Hematocrit 35.1 % Mean Corpuscular Volume 99.2 fL Mean Corpuscular Hemoglobin 31.6 pg Mean Corpuscular Hemoglobin Concent 31.9 g/dl Platelet Count 213 K/uL Mean Platelet Volume 9.8 fL Neutrophils (%) (Auto) 90.2 % Lymphocytes (%) (Auto) 4.3 % Monocytes (%) (Auto) 4.9 % Eosinophils (%) (Auto) 0.0 % Basophils (%) (Auto) 0.1 % Neutrophils # (Auto) 7.43 K/uL Lymphocytes # (Auto) 0.35 K/uL Monocytes # (Auto) 0.40 K/uL Eosinophils # (Auto) 0.00 K/uL Basophils # (Auto) 0.01 K/uL RDW Standard Deviation 57.9 fL RDW Coefficient of Variation 15.8 % Immature Granulocyte % (Auto) 0.5 % Immature Granulocyte # (Auto) 0.04 K/uL Sodium Level 132 mmol/L Potassium Level 4.4 mmol/L Chloride Level 90 mmol/L Carbon Dioxide Level 34 mmol/L Anion Gap 8.0 mmol/L Blood Urea Nitrogen 27 mg/dl Creatinine 2.59 mg/dl Est Creatinine Clear Calc Drug Dose 20.9 ml/min Estimated GFR () 21.1 Estimated GFR (Non- 18.2 BUN/Creatinine Ratio 10.6 Random Glucose 430 mg/dl Calcium Level 8.0 mg/dl Phosphorus Level 4.1 mg/dl Magnesium Level 2.2 mg/dl Total Bilirubin 0.3 mg/dl Aspartate Amino Transf (AST/SGOT) 41 U/L Alanine Aminotransferase (ALT/SGPT) 27 U/L Alkaline Phosphatase 133 U/L Total Protein 8.1 gm/dl Albumin 3.4 gm/dl Globulin 4.7 gm/dl Albumin/Globulin Ratio 0.7 Beta-Hydroxybutyric Acid 1.15 mg/dL Influenza Type A Antigen POS for Influ A Influenza Type B Antigen Neg for Influ B Urine Color YELLOW Urine Appearance CLOUDY Urine pH 5.0 Urine Specific [place] 1.019 Urine Protein 3+ Urine Glucose (UA) 3+ Urine Ketones NEG Urine Occult Blood 1+ Urine Nitrite NEG Urine Bilirubin NEG Urine Urobilinogen NEG Urine Leukocyte Esterase TRACE Urine WBC (Auto) 10-30 /hpf Urine RBC (Auto) 0-4 /hpf Urine Hyaline Casts (Auto) 5-10 /lpf Urine Epithelial Cells (Auto) >30 /lpf Urine Bacteria (Auto) 1+ Urine Yeast (Auto) Bedside Glucose 472 mg/dl Test 09/28/17 23:57 09/29/17 03:59 09/29/17 06:32 09/29/17 11:19 Bedside Glucose 413 mg/dl 92 mg/dl 143 mg/dl 325 mg/dl (Apple Gomez, ANTHONY) Assessment and Plan 66 y/o F Hx ESRD, COPD, Diastolic CHF, DMII, HTN, HPL. Presents with SOB x 3 days. States she had a fever 1 or 2 days prior. The pt was evaluated in the ER 2 days prior and discharged at her own request with treatment for a presumed COPD exacerbation. She returns to the hospital as her SOB has not improved. She is hypoxic on arrival. A rapid flu is (+) for influenza A. The pt admits to a productive cough. She denies CP, N/V, diarrhea or dysuria. She is able to urinate a small amount daily despite requiring dialysis and a UA from her previous visit proved (+) for E Coli. Acute on chronic COPD exacerbation, h/o asthma, + influenza A: - O2 protocol, wean as tolerated- has PRN O2 supplement at home - DuoNeb QID and PRN for SOB/wheezing - Continue Dulera; Hold Spiriva while receiving DuoNebs - Doxycycline 100 mg BID - IV Solu Medrol 40 mg TID- decrease to BID - Droplet precautions - Tamiflu x5 days QT is prolonged on EKG: - Monitor on tele- no acute events - Placed on Levaquin 2 days ago - Follow EKGs - Mag WNL ESRD on HD MWF: - Continue Nephrocaps and PhosLo - Consult nephrology for dialysis management T2DM- last hgbA1c 7.3% in 06/2017: - Home regimen of Lantus 13 u BID + NovoLog TID - Recheck hgbA1c - Pharmacy consulted for glycemic management- currently on Lantus 20 u BID + BSG ACHS and ISS Diastolic CHF- STABLE: - Continue Coreg 25 mg BID - ECHO 10/2015- preserved EF, grade II diastolic dysfunction, LVH Abnormal UA- past records show E.coli UTI: - Doxycycline as above - UCx never sent- will send for culture, but antibiotics already started DVT prophylaxis: Heparin TID Code status: LEVEL I, FULL Dispo: Discharge to home once medically stable- CM and PT/OT consulted (Apple Gomez, PA-C) Supervising Note Dr. Westfall I performed a history and physical examination on the patient. I reviewed above note and agree with it. I discussed plan with APC and patient. During my face to face encounter with the patient, I answered all of the patient's questions. (Tony Westfall M.D.)
[2017-09-29] MEDS ORDERED: DULERA: ORDER AWAITING ACTION SCH (16:00)
--- NOTE | 2017-09-29 16:51 | Nephrology Consultation ---
Nephrology Consultation Date & Providers Date of Consultation: Sep 29, 2017. Primary Care Provider: Karla Todd M.D. Referring Provider: Reason for Consultation ESRD on HD History of Present Illness Gemma Is a 65-year-old female with past medical history significant for ESRD on HD, hypertension, diabetes, COPD admitted to the hospital with Influenza and COPD exacerbation. Nephrologic consult was requested to manage hemodialysis. Electronic medical records were reviewed in detail during patient's visit. Gemma present presented to the hospital with 2-days history of worsening shortness of breath and nonproductive cough, initially came on Thursday. Flu swab was negative and she was discharged from emergency room. However her shortness of breath continues to worsen overall just feeling poorly and she returned to ER on Thursday afternoon. This time she spell was positive for influenza and admitted with flu and COPD exacerbation. Initially receive methylprednisone, started on Tamiflu and empirically started on Zosyn and Zithromax. She continues to have shortness of breath oxygen saturation decent on 2 L nasal cannula oxygen, at home she uses Oxygen rarely. She denied a fever or chills. She has end-stage renal disease secondary to hypertensive nephropathy on dialysis Thursday, Thursday, Thursday via left brachiocephalic AV fistula. She currently dialysis at [facility] [place], primary fabric cutter Dr. Coley. She had full treatment of dialysis on Thursday before she came to ER. She dialysis for 3 hours 45 minutes. Has history of diabetes and hypertension in both well controlled. Allergies Coded Allergies: Hydralazine (Verified Allergy, Intermediate, rash, 09/28/17) Isosorbide Nitrate (Verified Allergy, Unknown, ITCHING, 09/28/17) EZE Inhibitors (Verified Adverse Reaction, Unknown, DUE TO CKD, 09/28/17) Inpatient Medications Current Inpatient Medications Medications (Trade) Dose Ordered Sig/Tu Route Start Time Stop Time Status Last Admin Dose Admin Calcium Acetate (Phoslo Cap) 667 mg BIDM PO 09/29/17 07:30 10/29/17 07:59 09/29/17 08:48 667 MG Carvedilol (Coreg Tab) 25 mg BID PO 09/28/17 21:00 10/28/17 20:59 09/29/17 08:49 25 MG Vitamin B Complex/ Vit C/Folic Acid (Nephrocaps) 1 cap QAM PO 09/29/17 09:00 10/29/17 08:59 09/29/17 08:48 1 CAP Heparin Sodium (Porcine) (Heparin Sq 5000 Unit/0.5ml) 5,000 unit Q8 SQ 09/28/17 22:00 10/28/17 21:59 09/29/17 14:45 5,000 UNIT Acetaminophen (Tylenol Tab) 650 mg Q4H PRN PO 09/28/17 20:00 10/28/17 19:59 09/28/17 22:17 650 MG Ondansetron HCl (Zofran Inj) 4 mg Q6H PRN IV 09/28/17 20:00 10/28/17 19:59 Morphine Sulfate (MoRPHine SULFATE INJ) 2 mg Q30M PRN IV 09/28/17 20:00 10/12/17 19:59 Polyethylene (Miralax Powder Packet) 17 gm DAILY PRN PO 09/28/17 20:00 10/28/17 19:59 Albuterol/ Ipratropium (Duoneb) 3 ml Q6R INH 09/28/17 21:00 10/28/17 20:59 09/29/17 15:01 3 ML Albuterol Sulfate (Ventolin 0.083% 2.5MG/3ML Neb) 2.5 mg Q4R PRN INH 09/28/17 20:30 10/28/17 20:29 Doxycycline Hyclate (Vibramycin Cap) 100 mg BID PO 09/29/17 08:00 10/06/17 07:59 09/29/17 09:04 100 MG Oseltamivir Phosphate (Tamiflu Susp) 30 mg WeFr@1800 PO 09/30/17 18:00 10/02/17 18:30 Insulin Aspart (novoLOG ASPART) SLIDING SCALE G... ACHS SC 09/28/17 21:00 10/28/17 20:59 09/29/17 11:53 16 UNITS Glucose (Glucose 40% Gel) 15-30 GRAMS 15 GRAMS... UD PRN PO 09/28/17 21:30 10/28/17 21:29 Glucose (Glucose Chew Tab) 4-8 Tablets 4 Tabl... UD PRN PO 09/28/17 21:30 10/28/17 21:29 Dextrose (Dextrose 50% 50ML Syringe) 25-50ML OF 50% DW IV FOR... UD PRN IV 09/28/17 21:30 10/28/17 21:29 Glucagon (Glucagon Inj) 1 mg UD PRN SQ 09/28/17 21:30 10/28/17 21:29 Miscellaneous Information (Consult Glycemic Management Pharmacy) 1 ea UD PRN N/A 09/29/17 00:45 10/29/17 00:44 Insulin Glargine (Lantus Solostar Pen) 20 units BID SC 09/29/17 10:15 10/29/17 10:14 Future hold 09/29/17 11:54 20 UNITS Insulin Glargine (Lantus Solostar Pen) 30 units TODAY@1645 SC 09/29/17 16:45 09/29/17 23:59 Insulin Aspart (novoLOG ASPART) SLIDING SCALE G... TODAY@0000,0400 SC 09/30/17 00:00 09/30/17 04:01 Methylprednisolone Sodium Succinate 40 mg/Syringe 0.64 ml @ 1.5 mls/min BID IV 09/29/17 21:00 10/29/17 01:59 Non-Formulary Medication (Mometasone Furoate-Formoterol (Dulera 200/5 Mcg)) 2 puffs BID INH 09/29/17 21:00 10/29/17 20:59 UNV Family History FH: HTN (hypertension) Social History Smoking Status: Never Smoker Drug Use: none Marital Status: Housing Status: lives with family Occupation: retired Review of Systems A complete review of systems was performed. Pertinent positives are noted above. All other systems are negative. Physical Exam Date Time Temp Pulse Resp B/P (MAP) Pulse Ox O2 Delivery O2 Flow Rate FiO2 09/29/17 15:13 36.7 74 18 133/77 (95) 97 Nasal Cannula 2.0 09/29/17 15:03 75 16 96 Nasal Cannula 2.0 09/29/17 12:00 Nasal Cannula 3.0 09/29/17 10:55 36.9 80 22 138/80 (99) 94 Nasal Cannula 2.0 09/29/17 08:00 Nasal Cannula 3.0 09/29/17 07:33 78 16 98 Nasal Cannula 3.0 09/29/17 06:58 36.4 78 18 144/94 (111) 100 Nasal Cannula 2.0 09/29/17 04:06 36.6 77 19 117/69 (85) 95 Nasal Cannula 3.0 09/29/17 04:00 95 Nasal Cannula 3.0 09/29/17 00:00 98 Nasal Cannula 3.0 09/28/17 23:22 36.8 82 18 138/79 (98) 98 Nasal Cannula 3.0 09/28/17 21:00 36.8 92 151/79 93 Nasal Cannula 2.0 09/28/17 20:56 87 22 130/76 96 09/28/17 20:07 86 20 179/86 96 Nasal Cannula 3.0 09/28/17 19:18 84 09/28/17 18:46 84 20 127/91 97 Room Air 09/28/17 18:12 98 Nasal Cannula 3.0 09/28/17 18:10 97 Nasal Cannula 3.0 09/28/17 17:03 84 Room Air 09/28/17 17:02 Nasal Cannula 2.5 09/28/17 17:01 36.8 92 22 137/67 84 Room Air GENERAL: Elderly female, AAA x 3, pleasant, healthy-appearing, in mild respiratory distress while talking. HEENT: Atraumatic, normocephalic. NECK: Supple, no JVD, no carotid bruit appreciated. ENT: No sinus tenderness MOUTH and THROAT: Moist oral mucosa, no oral ulcer or pharyngeal erythema RESPIRATORY: Overall decreased breath sounds and rales bilateral bases. CARDIOVASCULAR: S1, S2 normal, rate rhythm regular. ABDOMEN: Soft, nontender, positive bowel sound. MUSCULOSKELETAL: No joint swelling, erythema or tenderness. Normal range of motion. SKIN: No skin rash EXTREMITY: No lower extremity edema NEURO: No gross focal neurological deficit, speech fluent. PSYCHIATRY: Normal mood and judgment Laboratory Results Last 24 Hours Test 09/28/17 18:31 09/28/17 18:40 09/28/17 21:00 09/28/17 21:46 White Blood Count 8.23 K/uL Red Blood Count 3.54 M/uL Hemoglobin 11.2 g/dL Hematocrit 35.1 % Mean Corpuscular Volume 99.2 fL Mean Corpuscular Hemoglobin 31.6 pg Mean Corpuscular Hemoglobin Concent 31.9 g/dl Platelet Count 213 K/uL Mean Platelet Volume 9.8 fL Neutrophils (%) (Auto) 90.2 % Lymphocytes (%) (Auto) 4.3 % Monocytes (%) (Auto) 4.9 % Eosinophils (%) (Auto) 0.0 % Basophils (%) (Auto) 0.1 % Neutrophils # (Auto) 7.43 K/uL Lymphocytes # (Auto) 0.35 K/uL Monocytes # (Auto) 0.40 K/uL Eosinophils # (Auto) 0.00 K/uL Basophils # (Auto) 0.01 K/uL RDW Standard Deviation 57.9 fL RDW Coefficient of Variation 15.8 % Immature Granulocyte % (Auto) 0.5 % Immature Granulocyte # (Auto) 0.04 K/uL Sodium Level 132 mmol/L Potassium Level 4.4 mmol/L Chloride Level 90 mmol/L Carbon Dioxide Level 34 mmol/L Anion Gap 8.0 mmol/L Blood Urea Nitrogen 27 mg/dl Creatinine 2.59 mg/dl Est Creatinine Clear Calc Drug Dose 20.9 ml/min Estimated GFR () 21.1 Estimated GFR (Non- 18.2 BUN/Creatinine Ratio 10.6 Random Glucose 430 mg/dl Calcium Level 8.0 mg/dl Phosphorus Level 4.1 mg/dl Magnesium Level 2.2 mg/dl Total Bilirubin 0.3 mg/dl Aspartate Amino Transf (AST/SGOT) 41 U/L Alanine Aminotransferase (ALT/SGPT) 27 U/L Alkaline Phosphatase 133 U/L Total Protein 8.1 gm/dl Albumin 3.4 gm/dl Globulin 4.7 gm/dl Albumin/Globulin Ratio 0.7 Beta-Hydroxybutyric Acid 1.15 mg/dL Influenza Type A Antigen POS for Influ A Influenza Type B Antigen Neg for Influ B Urine Color YELLOW Urine Appearance CLOUDY Urine pH 5.0 Urine Specific [place] 1.019 Urine Protein 3+ Urine Glucose (UA) 3+ Urine Ketones NEG Urine Occult Blood 1+ Urine Nitrite NEG Urine Bilirubin NEG Urine Urobilinogen NEG Urine Leukocyte Esterase TRACE Urine WBC (Auto) 10-30 /hpf Urine RBC (Auto) 0-4 /hpf Urine Hyaline Casts (Auto) 5-10 /lpf Urine Epithelial Cells (Auto) >30 /lpf Urine Bacteria (Auto) 1+ Urine Yeast (Auto) Bedside Glucose 472 mg/dl Test 09/28/17 23:57 09/29/17 03:59 09/29/17 06:32 09/29/17 11:19 Bedside Glucose 413 mg/dl 92 mg/dl 143 mg/dl 325 mg/dl Impression (1) ESRD (end stage renal disease) on dialysis (2) Secondary hyperparathyroidism of renal origin (3) Influenza A (4) COPD exacerbation (5) HYPERTENSION NOS (6) Anemia 67 year female with end-stage renal disease on hemodialysis Thursday, Thursday, Thursday at a.m. continue on frozen his kidney care admitted to the hospital with COPD exacerbation and influenza. Started Tamiflu and cover with empiric antibiotic. Current dose line was seems slightly volume overloaded, electrolyte and blood pressure acceptable. Had dialysis Thursday had full treatment. Has history of hypertension, diabetes, anemia and secondary hyperparathyroidism. Spell Recommendations --keep her on schedule for Thursday as her regular schedule, for 3 hours 45 minutes with 2 K bath, UF as tolerated to reach estimated dry weight. --limit fluid intake, avoid IV fluid, low-salt and low-potassium diet --dose meds for GFR less than 10 --hemoglobin 7.1, hold VITALY for now --continue on phosphate binder with male Nephrocaps --Start on omeprazole 20 mg p.o. daily for acid reflux and Tums p.r.n. Thank you for allowing me to participate in your patient's care. It was a pleasure to see Gemma
[2017-09-29] MEDS: PANTOprazole SOD 40 MG TAB PO SCH (20:58)
[2017-09-30] VITALS (25 sets, daily range): BP systolic 104–149; BP diastolic 46–76; PULSE 56–77; TEMP 36.4–36.6; O2SAT 89–98; Ht 157.5 cm; Wt 83.6 kg
[2017-09-30] MEDS: ALBUT/IPRATROP 3MG/0.5MG NEB 3 ML VIAL INH SCH ×4 (02:08→19:35)
[2017-09-30] MEDS: INSULIN ASPART 100 UNITS/ML 3 ML PEN SC SCH ×6 (04:41→22:03)
[2017-09-30] MEDS: HEPARIN SOD 5000 UNIT/0.5 ML CARP SQ SCH ×3 (04:42→22:04)
[2017-09-30 07:16] LABS: HEMATOCRIT 37.4 % (37-47); HEMOGLOBIN 12.2 g/dL (12.0-16.0); MEAN CELL VOLUME 97.7 fL (80-100); MEAN CORPUSCULAR HEMOGLOBIN 31.9 pg (25-34); MEAN CORPUSCULAR HGB CONC 32.6 g/dl (32-36); MEAN PLATELET VOLUME 10.1 fL (7.4-10.4); PLATELET COUNT 212 K/uL (130-400); RED CELL DISTRIBUTION WIDTH CV 15.6 % (11.5-14.5); WHITE BLOOD COUNT 5.97 K/uL (4.8-10.8)
[2017-09-30 07:46] LABS: HEMOGLOBIN A1C 8.4 % (4.5-5.6)
[2017-09-30 07:53] LABS: CREATININE 3.39 mg/dl (0.60-1.20)
[2017-09-30 07:54] LABS: CALCIUM 8.3 mg/dl (8.5-10.1); POTASSIUM 4.5 mmol/L (3.5-5.1)
[2017-09-30] MEDS: INSULIN GLARGINE SOLOSTAR 100 UNITS/ML 3 ML PEN SC SCH ×2 (08:19→22:04)
[2017-09-30] MEDS: DOXYCYCLINE HYCLATE 100 MG CAP PO SCH ×2 (08:51→21:59)
[2017-09-30] MEDS: CALCIUM ACETATE 667MG GELCAP PO SCH ×2 (08:51→16:45)
[2017-09-30] MEDS: NEPHROCAPS PO SCH (08:52)
[2017-09-30] MEDS: PANTOprazole SOD 40 MG TAB PO SCH (08:52)
[2017-09-30] MEDS: METHYLPREDNISOLONE IV 40 MG in SYRINGE 0 ML IV SCH ×2 (08:52→21:59)
[2017-09-30] MEDS: CARVEDILOL 25 MG TAB PO SCH ×2 (08:52→21:59)
[2017-09-30] MEDS: MOMETASONE FUROATE-FORMOTEROL (DULERA) 200mcg/5mcg per inh INH SCH ×2 (08:53→23:54)
[2017-09-30] MEDS: CALCIUM CARBONATE 500 MG CHEWABLE PO PRN (08:54)
--- NOTE | 2017-09-30 12:08 | Nephrology Progress Note ---
Nephrology Progress Note Date of Service Sep 30, 2017. Chief Complaint f/u for ESRD on HD Subjective Gemma was seen and examined in her room this am. Overall feeling better, still has cough, but SOB improved. No fever or chills, BP stable. Review of Systems A complete review of systems was performed. Pertinent positives are noted above. All other systems are negative. Vital Signs Last 8 Hrs Date Time Temp Pulse Resp B/P (MAP) Pulse Ox O2 Delivery O2 Flow Rate FiO2 09/30/17 10:49 36.6 64 20 137/74 (95) 89 Room Air 09/30/17 09:42 Nasal Cannula 3.0 09/30/17 09:00 36.5 68 17 134/74 (94) 97 09/30/17 08:00 Nasal Cannula 2.0 09/30/17 07:13 74 18 95 Nasal Cannula 2.0 09/30/17 07:07 36.6 75 20 135/73 (93) 94 Nasal Cannula 2.0 09/30/17 04:41 Nasal Cannula 2.0 09/30/17 04:19 36.6 74 19 127/76 (93) 90 Nasal Cannula 2.0 Last Recorded Weight Weight (Kilograms): 86.200 Physical Exam GENERAL:middle aged female, AAA x 3, pleasant, healthy-appearing, not in any distress. NECK: Supple, no JVD. RESPIRATORY: Normal breathing efforts, no accessory muscle use, clear to auscultation bilaterally, no wheezes or rales. CARDIOVASCULAR: S1, S2 normal, rate rhythm regular. EXTREMITY: No lower extremity edema NEURO: speech fluent. PSYCHIATRY: Normal mood and judgment Family History FH: HTN (hypertension) Social History Smoking Status: Never smoker Drug Use: none Marital Status: Housing Status: lives with family Occupation: retired Laboratory Results Past 24 Hours 09/30/17 06:52 09/30/17 06:52 Test 09/29/17 15:59 09/29/17 20:31 09/29/17 23:34 09/30/17 04:13 Bedside Glucose 270 mg/dl (70-90) 280 mg/dl (70-90) 190 mg/dl (70-90) 203 mg/dl (70-90) Test 09/30/17 06:52 09/30/17 10:46 Red Blood Count 3.83 M/uL (4.2-5.4) Mean Corpuscular Volume 97.7 fL (80-100) Mean Corpuscular Hemoglobin 31.9 pg (25-34) Mean Corpuscular Hemoglobin Concent 32.6 g/dl (32-36) RDW Standard Deviation 56.0 fL (36.4-46.3) RDW Coefficient of Variation 15.6 % (11.5-14.5) Mean Platelet Volume 10.1 fL (7.4-10.4) Anion Gap 11.0 mmol/L (3-11) Est Creatinine Clear Calc Drug Dose 16.0 ml/min Estimated GFR () 15.2 Estimated GFR (Non- 13.1 BUN/Creatinine Ratio 20.9 (10-20) Estimated Average Glucose 194 mg/dl Hemoglobin A1c 8.4 % (4.5-5.6) Calcium Level 8.3 mg/dl (8.5-10.1) Bedside Glucose 313 mg/dl (70-90) Allergies Coded Allergies: Hydralazine (Verified Allergy, Intermediate, rash, 09/28/17) Isosorbide Nitrate (Verified Allergy, Unknown, ITCHING, 09/28/17) EZE Inhibitors (Verified Adverse Reaction, Unknown, DUE TO CKD, 09/28/17) Medications Current Inpatient Medications Medications (Trade) Dose Ordered Sig/Tu Route Start Time Stop Time Status Last Admin Dose Admin Calcium Acetate (Phoslo Cap) 667 mg BIDM PO 09/29/17 07:30 10/29/17 07:59 09/30/17 08:51 667 MG Carvedilol (Coreg Tab) 25 mg BID PO 09/28/17 21:00 10/28/17 20:59 09/30/17 08:52 25 MG Vitamin B Complex/ Vit C/Folic Acid (Nephrocaps) 1 cap QAM PO 09/29/17 09:00 10/29/17 08:59 09/30/17 08:52 1 CAP Heparin Sodium (Porcine) (Heparin Sq 5000 Unit/0.5ml) 5,000 unit Q8 SQ 09/28/17 22:00 10/28/17 21:59 09/30/17 04:42 5,000 UNIT Acetaminophen (Tylenol Tab) 650 mg Q4H PRN PO 09/28/17 20:00 10/28/17 19:59 09/28/17 22:17 650 MG Ondansetron HCl (Zofran Inj) 4 mg Q6H PRN IV 09/28/17 20:00 10/28/17 19:59 Morphine Sulfate (MoRPHine SULFATE INJ) 2 mg Q30M PRN IV 09/28/17 20:00 10/12/17 19:59 Polyethylene (Miralax Powder Packet) 17 gm DAILY PRN PO 09/28/17 20:00 10/28/17 19:59 Albuterol/ Ipratropium (Duoneb) 3 ml Q6R INH 09/28/17 21:00 10/28/17 20:59 09/30/17 07:13 3 ML Albuterol Sulfate (Ventolin 0.083% 2.5MG/3ML Neb) 2.5 mg Q4R PRN INH 09/28/17 20:30 10/28/17 20:29 Doxycycline Hyclate (Vibramycin Cap) 100 mg BID PO 09/29/17 08:00 10/06/17 07:59 09/30/17 08:51 100 MG Oseltamivir Phosphate (Tamiflu Susp) 30 mg WeFr@1800 PO 09/30/17 18:00 10/02/17 18:30 Insulin Aspart (novoLOG ASPART) SLIDING SCALE G... ACHS SC 09/28/17 21:00 10/28/17 20:59 09/30/17 11:43 12 UNITS Glucose (Glucose 40% Gel) 15-30 GRAMS 15 GRAMS... UD PRN PO 09/28/17 21:30 10/28/17 21:29 Glucose (Glucose Chew Tab) 4-8 Tablets 4 Tabl... UD PRN PO 09/28/17 21:30 10/28/17 21:29 Dextrose (Dextrose 50% 50ML Syringe) 25-50ML OF 50% DW IV FOR... UD PRN IV 09/28/17 21:30 10/28/17 21:29 Glucagon (Glucagon Inj) 1 mg UD PRN SQ 09/28/17 21:30 10/28/17 21:29 Miscellaneous Information (Consult Glycemic Management Pharmacy) 1 ea UD PRN N/A 09/29/17 00:45 10/29/17 00:44 Insulin Glargine (Lantus Solostar Pen) 20 units BID SC 09/29/17 10:15 10/29/17 10:14 Future hold 09/30/17 08:19 20 UNITS Methylprednisolone Sodium Succinate 40 mg/Syringe 0.64 ml @ 1.5 mls/min BID IV 09/29/17 21:00 10/29/17 01:59 09/30/17 08:52 1.5 MLS/MIN Pantoprazole Sodium (Protonix Tab) 40 mg QAM PO 09/29/17 19:00 10/02/17 09:01 09/30/17 08:52 40 MG Calcium Carbonate (Tums Chew Tab) 500 mg UD PRN PO 09/29/17 17:00 10/29/17 16:59 09/30/17 08:54 500 MG Mometasone Furoate/ Formoterol Fumar (Dulera) 2 ea BID INH 09/30/17 09:00 10/30/17 08:59 09/30/17 08:53 2 EA Benzonatate (Tessalon Perles Cap) 100 mg TID PRN PO 09/30/17 10:45 10/30/17 10:44 Impression (1) ESRD (end stage renal disease) on dialysis (2) Secondary hyperparathyroidism of renal origin (3) Influenza A (4) COPD exacerbation (5) HYPERTENSION NOS (6) Anemia 67 year female with end-stage renal disease on hemodialysis Thursday, Thursday, Thursday at a.m. continue on frozen his kidney care admitted to the hospital with COPD exacerbation and influenza. Started Tamiflu and cover with empiric antibiotic. Current dose line was seems slightly volume overloaded, electrolyte and blood pressure acceptable. Had dialysis Thursday had full treatment. Has history of hypertension, diabetes, anemia and secondary hyperparathyroidism. Spechidi Recommendations --dialysis this morning as her regular schedule, for 3 hours 45 minutes with 2 K bath, UF as tolerated to reach estimated dry weight. --limit fluid intake, avoid IV fluid, low-salt and low-potassium diet --dose meds for GFR less than 10 --hemoglobin 12.2, hold VITALY for now --continue on phosphate binder with meal and Nephrocaps --omeprazole 20 mg p.o. daily for acid reflux and Tums p.r.n. will follow
--- NOTE | 2017-09-30 12:13 | Hospitalist Progress Note ---
Hospitalist Progress Note Date of Service Sep 30, 2017. (Apple Gomez ., SUDARSHANC) Subjective Pt evaluation today including: conversation w/ patient, physical exam, lab review, review of inpatient medication list Voiding: no voiding problems Patient sitting in bedside chair. Feels improved since admission. Still with non-productive cough and body aches. Dialysis scheduled for today. SOB feels improved- wean from O2 if able today. Patient denies any fever, chills, sweats, lightheadedness, dizziness, vision changes, CP, palpitations, edema, wheezing, abdominal pain, nausea, vomiting, diarrhea, urinary symptoms, melena, numbness/tingling, weakness, anxiety/ depression, active bleeding, or new skin discoloration/changes. (Apple Gomez ., SUDARSHANC) Medications Current Inpatient Medications Medications (Trade) Dose Ordered Sig/Tu Route Start Time Stop Time Status Last Admin Dose Admin Calcium Acetate (Phoslo Cap) 667 mg BIDM PO 09/29/17 07:30 10/29/17 07:59 09/30/17 08:51 667 MG Carvedilol (Coreg Tab) 25 mg BID PO 09/28/17 21:00 10/28/17 20:59 09/30/17 08:52 25 MG Vitamin B Complex/ Vit C/Folic Acid (Nephrocaps) 1 cap QAM PO 09/29/17 09:00 10/29/17 08:59 09/30/17 08:52 1 CAP Heparin Sodium (Porcine) (Heparin Sq 5000 Unit/0.5ml) 5,000 unit Q8 SQ 09/28/17 22:00 10/28/17 21:59 09/30/17 04:42 5,000 UNIT Acetaminophen (Tylenol Tab) 650 mg Q4H PRN PO 09/28/17 20:00 10/28/17 19:59 09/28/17 22:17 650 MG Ondansetron HCl (Zofran Inj) 4 mg Q6H PRN IV 09/28/17 20:00 10/28/17 19:59 Morphine Sulfate (MoRPHine SULFATE INJ) 2 mg Q30M PRN IV 09/28/17 20:00 10/12/17 19:59 Polyethylene (Miralax Powder Packet) 17 gm DAILY PRN PO 09/28/17 20:00 10/28/17 19:59 Albuterol/ Ipratropium (Duoneb) 3 ml Q6R INH 09/28/17 21:00 10/28/17 20:59 09/30/17 07:13 3 ML Albuterol Sulfate (Ventolin 0.083% 2.5MG/3ML Neb) 2.5 mg Q4R PRN INH 09/28/17 20:30 10/28/17 20:29 Doxycycline Hyclate (Vibramycin Cap) 100 mg BID PO 09/29/17 08:00 10/06/17 07:59 09/30/17 08:51 100 MG Oseltamivir Phosphate (Tamiflu Susp) 30 mg WeFr@1800 PO 09/30/17 18:00 10/02/17 18:30 Insulin Aspart (novoLOG ASPART) SLIDING SCALE G... ACHS SC 09/28/17 21:00 10/28/17 20:59 09/30/17 11:43 12 UNITS Glucose (Glucose 40% Gel) 15-30 GRAMS 15 GRAMS... UD PRN PO 09/28/17 21:30 10/28/17 21:29 Glucose (Glucose Chew Tab) 4-8 Tablets 4 Tabl... UD PRN PO 09/28/17 21:30 10/28/17 21:29 Dextrose (Dextrose 50% 50ML Syringe) 25-50ML OF 50% DW IV FOR... UD PRN IV 09/28/17 21:30 10/28/17 21:29 Glucagon (Glucagon Inj) 1 mg UD PRN SQ 09/28/17 21:30 10/28/17 21:29 Miscellaneous Information (Consult Glycemic Management Pharmacy) 1 ea UD PRN N/A 09/29/17 00:45 10/29/17 00:44 Insulin Glargine (Lantus Solostar Pen) 20 units BID SC 09/29/17 10:15 10/29/17 10:14 Future hold 09/30/17 08:19 20 UNITS Methylprednisolone Sodium Succinate 40 mg/Syringe 0.64 ml @ 1.5 mls/min BID IV 09/29/17 21:00 10/29/17 01:59 09/30/17 08:52 1.5 MLS/MIN Pantoprazole Sodium (Protonix Tab) 40 mg QAM PO 09/29/17 19:00 10/02/17 09:01 09/30/17 08:52 40 MG Calcium Carbonate (Tums Chew Tab) 500 mg UD PRN PO 09/29/17 17:00 10/29/17 16:59 09/30/17 08:54 500 MG Mometasone Furoate/ Formoterol Fumar (Dulera) 2 ea BID INH 09/30/17 09:00 10/30/17 08:59 09/30/17 08:53 2 EA Benzonatate (Tessalon Perles Cap) 100 mg TID PRN PO 09/30/17 10:45 10/30/17 10:44 (Apple Gomez, PA-C) Objective Vital Signs Date Time Temp Pulse Resp B/P (MAP) Pulse Ox O2 Delivery O2 Flow Rate FiO2 09/30/17 10:49 36.6 64 20 137/74 (95) 89 Room Air 09/30/17 09:42 Nasal Cannula 3.0 09/30/17 09:00 36.5 68 17 134/74 (94) 97 09/30/17 08:00 Nasal Cannula 2.0 09/30/17 07:13 74 18 95 Nasal Cannula 2.0 09/30/17 07:07 36.6 75 20 135/73 (93) 94 Nasal Cannula 2.0 09/30/17 04:41 Nasal Cannula 2.0 09/30/17 04:19 36.6 74 19 127/76 (93) 90 Nasal Cannula 2.0 09/30/17 00:00 Nasal Cannula 2.0 09/29/17 23:31 36.9 69 18 121/76 (91) 95 Nasal Cannula 2.0 09/29/17 21:05 Nasal Cannula 2.0 09/29/17 20:07 79 16 96 Nasal Cannula 2.0 09/29/17 19:28 36.8 77 18 144/84 (104) 95 Room Air 09/29/17 16:00 Nasal Cannula 3.0 09/29/17 15:13 36.7 74 18 133/77 (95) 97 Nasal Cannula 2.0 09/29/17 15:03 75 16 96 Nasal Cannula 2.0 (Apple Gomez, PA-C) Physical Exam General Appearance: no apparent distress, + obese, + pertinent finding (O2 NC ) Eyes: normal inspection, PERRL ENT: hearing grossly normal Neck: supple Respiratory/Chest: lungs clear, no respiratory distress, no accessory muscle use, + decreased breath sounds (throughout) Cardiovascular: regular rate, rhythm Abdomen: normal bowel sounds, non tender, soft Extremities: no pedal edema, no calf tenderness Neurologic/Psychiatric: alert, normal mood/affect, oriented x 3 Skin: normal color, warm/dry, no rash (Apple Gomez ., PA-C) Laboratory Results Last 24 Hours Test 09/29/17 15:59 09/29/17 20:31 09/29/17 23:34 09/30/17 04:13 Bedside Glucose 270 mg/dl 280 mg/dl 190 mg/dl 203 mg/dl Test 09/30/17 06:52 09/30/17 10:46 White Blood Count 5.97 K/uL Red Blood Count 3.83 M/uL Hemoglobin 12.2 g/dL Hematocrit 37.4 % Mean Corpuscular Volume 97.7 fL Mean Corpuscular Hemoglobin 31.9 pg Mean Corpuscular Hemoglobin Concent 32.6 g/dl RDW Standard Deviation 56.0 fL RDW Coefficient of Variation 15.6 % Platelet Count 212 K/uL Mean Platelet Volume 10.1 fL Sodium Level 133 mmol/L Potassium Level 4.5 mmol/L Chloride Level 94 mmol/L Carbon Dioxide Level 28 mmol/L Anion Gap 11.0 mmol/L Blood Urea Nitrogen 71 mg/dl Creatinine 3.39 mg/dl Est Creatinine Clear Calc Drug Dose 16.0 ml/min Estimated GFR () 15.2 Estimated GFR (Non- 13.1 BUN/Creatinine Ratio 20.9 Random Glucose 197 mg/dl Estimated Average Glucose 194 mg/dl Hemoglobin A1c 8.4 % Calcium Level 8.3 mg/dl Bedside Glucose 313 mg/dl (Apple Gomez ., PA-C) Assessment and Plan 66 y/o F Hx ESRD, COPD, Diastolic CHF, DMII, HTN, HPL. Presents with SOB x 3 days. States she had a fever 1 or 2 days prior. The pt was evaluated in the ER 2 days prior and discharged at her own request with treatment for a presumed COPD exacerbation. She returns to the hospital as her SOB has not improved. She is hypoxic on arrival. A rapid flu is (+) for influenza A. The pt admits to a productive cough. She denies CP, N/V, diarrhea or dysuria. She is able to urinate a small amount daily despite requiring dialysis and a UA from her previous visit proved (+) for E Coli. Acute on chronic COPD exacerbation, h/o asthma, + influenza A: - O2 protocol, wean as tolerated with O2 sat 89% or greater on RA- has PRN O2 supplement at home - DuoNeb QID and PRN for SOB/wheezing - Continue Dulera; Hold Spiriva while receiving DuoNebs - Doxycycline 100 mg BID - IV Solu Medrol 40 mg BID- start Prednisone 40 mg tomorrow - Tessalon perles PRN for cough - Droplet precautions - Tamiflu x5 days QT is prolonged on EKG: - Monitor on tele- no acute events - Follow EKGs - Mag ARITA - Lexii d/c'ed at admission ESRD on HD MWF: - Continue Nephrocaps and PhosLo - Consult nephrology for dialysis management T2DM- last hgbA1c 7.3% in 06/2017: - Home regimen of Lantus 13 u BID + NovoLog TID - Recheck hgbA1c - Pharmacy consulted for glycemic management- currently on Lantus 20 u BID + BSG ACHS and ISS Diastolic CHF- STABLE: - Continue Coreg 25 mg BID - ECHO 10/2015- preserved EF, grade II diastolic dysfunction, LVH Abnormal UA- past records show E.coli UTI: - Doxycycline as above - UCx never sent prior to starting antibiotic- UCx pending GERD: Protonix daily + Tums PRN DVT prophylaxis: Heparin TID Code status: LEVEL I, FULL Dispo: Likely discharge to home once medically stable- hopefully tomorrow- CM and PT/OT consulted (Apple Gomez, ANTHONY) Supervising Note Dr. Westfall I performed a history and physical examination on the patient. I reviewed above note and agree with it. I discussed plan with APC and patient. During my face to face encounter with the patient, I answered all of the patient's questions. (Tony Westfall M.D.)
--- NOTE | 2017-09-30 13:16 | Pharmacy Progress Note ---
Pharmacy Glycemic Short Note 2 Date of Service Sep 30, 2017. OUTPATIENT ANTIDIABETIC REGIMEN: * Lantus 13 units SQ BID * NovoLog 10 units SQ TIDM + SSI ASSESSMENT: * 67yo T2DM female well known to pharmacy from previous admissions/glycemic consults * Pt typically requires ~ 60 units of insulin per day while admitted, however, pt is ordered RTC high dose IV solumedrol but dose tapered from Q8hrs to Q12hrs. Since total daily dose is still above 80mg/dl high stress insulin dosing needed. * An additional ~ 0.4 units/kg/day (34 units) will be needed to for this severe steroid induced hyperglycemia. Will add this to outpatient regimen and titrate based on BSG trends. * Will change from 60 units/day to ~ 90-100 units/day for steroid induced hyperglycemia * Pt has received 91 units of insulin over the past 24hrs * 50 units basal insulin with Lantus * 41 units of prandial/correctional insulin with NovoLog * BSGs 09/29: 92, 143, 325, 270, 280, 190 * BSgs 09/30: 203, 197, 313 * AM fasting BSG is elevated, however hesitant to increase basal insulin since steroid dose decreased today * Post-prandial BSGs are elevated, will tighten CR PLAN FOR INPATIENT GLYCEMIC CONTROL: * Basal insulin: no change * Lantus 20 units SQ BID * Bolus insulin: tighten CR and slightly lower goal range * NovoLog per scale ACHS or Q6hrs while NPO * Goal Range: Low 120 mg/dL - High 150 mg/dL * Correction Factor: 20 mg/dL/unit * Nutritional / Prandial insulin per carb ratio of 1 unit per 5 grams CHO consumed
[2017-09-30] MEDS ORDERED: OSELTAMIVIR PHOSPHATE 6 MG/ML SUSP PO SCH (18:00)
[2017-09-30] MEDS: BENZONATATE 100MG CAP PO PRN (22:30)
[2017-10-01] MEDS: INSULIN ASPART 100 UNITS/ML 3 ML PEN SC SCH ×4 (00:11→12:45)
[2017-10-01] MEDS: ALBUT/IPRATROP 3MG/0.5MG NEB 3 ML VIAL INH SCH ×3 (01:48→14:27)
[2017-10-01 03:10] VITALS: BP 136/71; PULSE 67; TEMP 36.5; O2SAT 98
[2017-10-01] MEDS: HEPARIN SOD 5000 UNIT/0.5 ML CARP SQ SCH ×2 (05:55→14:00)
[2017-10-01 05:58] LABS: HEMATOCRIT 35.5 % (37-47); HEMOGLOBIN 11.6 g/dL (12.0-16.0); MEAN CORPUSCULAR HEMOGLOBIN 31.7 pg (25-34); MEAN CORPUSCULAR HGB CONC 32.7 g/dl (32-36); PLATELET COUNT 172 K/uL (130-400); RED CELL DISTRIBUTION WIDTH CV 15.8 % (11.5-14.5); RED CELL DISTRIBUTION WIDTH SD 55.7 fL (36.4-46.3); WHITE BLOOD COUNT 5.39 K/uL (4.8-10.8)
[2017-10-01 06:31] LABS: CREATININE 2.54 mg/dl (0.60-1.20)
[2017-10-01 06:32] LABS: CALCIUM 7.7 mg/dl (8.5-10.1); POTASSIUM 4.3 mmol/L (3.5-5.1)
[2017-10-01 06:55] VITALS: PULSE 65; O2SAT 100
[2017-10-01 07:14] VITALS: BP 137/69; PULSE 64; TEMP 36.4; O2SAT 94
[2017-10-01] MEDS: CALCIUM ACETATE 667MG GELCAP PO SCH (09:38)
[2017-10-01] MEDS: MOMETASONE FUROATE-FORMOTEROL (DULERA) 200mcg/5mcg per inh INH SCH (09:38)
[2017-10-01] MEDS: BENZONATATE 100MG CAP PO PRN (09:38)
[2017-10-01] MEDS: CARVEDILOL 25 MG TAB PO SCH (09:38)
[2017-10-01] MEDS: PANTOprazole SOD 40 MG TAB PO SCH (09:39)
[2017-10-01] MEDS: NEPHROCAPS PO SCH (09:39)
[2017-10-01] MEDS: CALCIUM CARBONATE 500 MG CHEWABLE PO PRN (09:44)
[2017-10-01] MEDS: INSULIN GLARGINE SOLOSTAR 100 UNITS/ML 3 ML PEN SC SCH (09:44)
[2017-10-01] MEDS: DOXYCYCLINE HYCLATE 100 MG CAP PO SCH (09:44)
[2017-10-01] MEDS ORDERED: PRED10TA PO (11:04)
[2017-10-01] MEDS ORDERED: DXY100 PO (11:04)
[2017-10-01] MEDS ORDERED: TMFS PO (11:04)
--- NOTE | 2017-10-01 11:09 | Discharge Instructions ---
Discharge Instructions Date of Service Oct 01, 2017. Admission Reason for Admission: Copd Exacerbation, Influenza A Discharge Discharge Diagnosis / Problem: Influenza A Discharge Goals Goal(s): Decrease discomfort, Increase independence, Improve disease control, Learn about illness, Diagnostic testing, Therapeutic intervention, Prevent Disease Progression Activity Recommendations Activity Limitations: resume your previous activity . Instructions / Follow-Up Instructions / Follow-Up Influenza A ("The flu"): Tamiflu 30 mg on Thursday (10/02) after dialysis COPD exacerbation: Prednisone 40 mg daily on 10/02 and 10/03, 20 mg daily on 10/04, 10/05, 10/06, and 10 mg daily on 10/07 and 10/08 Continue home O2 supplement as needed Doxycycline 100 mg twice daily until prescription is completed For acid reflux symptoms: You may take [id number] Prilosec 20 mg daily You may use Tums as needed for additional relief Resume all other regular home medication as prescribed FOLLOW-UPS: Please follow-up with your PCP within 5-7 days Please follow-up/keep all of your subspecialty appointments Continue dialysis schedule on Thursday, Thursday, Thursday Current Hospital Diet Patient's current hospital diet: AHA Diet (Heart Healthy), Renal Diet, Diabetes Type 2 Diet Discharge Diet Recommended Diet: AHA Diet (Heart Healthy), Diabetes Type 2 Diet, Renal Diet Pending Studies Studies pending at discharge: no Laboratory Results Hemoglobin A1c Test 09/30/17 06:52 Range/Units Estimated Average Glucose 194 mg/dl Hemoglobin A1c 8.4 H 4.5-5.6 % Medical Emergencies . Who to Call and When: Medical Emergencies: If at any time you feel your situation is an emergency, please call 911 immediately. . Non-Emergent Contact Non-Emergency issues call your: Primary Care Provider, Car Chaser Call Non-Emergent contact if: you have a fever, you have any medication questions . . "Provider Documentation" section prepared by Apple Gomez. . VTE Core Measure Inpt VTE Proph given/why not?: Unfractionated heparin SQ
--- NOTE | 2017-10-01 11:16 | Discharge Summary ---
Discharge Summary Date of Service Oct 01, 2017. Discharge Summary Admission Date: Sep 28, 2017 at 19:57 Discharge Date: Oct 01, 2017 Discharge Disposition: Home Principal Diagnosis: Influenza A Problems/Secondary Diagnoses: Acute on chronic COPD exacerbation h/o asthma + influenza A QT is prolonged on EKG ESRD on HD MWF T2DM- last hgbA1c 8.4% Diastolic CHF Abnormal UA GERD Immunizations: Have You Had Influenza Vaccine: Yes Influenza Vaccine Date: Jul 08, 2011 History of Tetanus Vaccine?: No History of Pneumococcal: No Pneumococcal Date: Mar 07, 2010 History of Hepatitis B Vaccine: No Procedures: CHEST ONE VIEW PORTABLE HISTORY: 67 years-old Female cough acute cough COMPARISON: Chest radiograph 09/26/2017 TECHNIQUE: Portable AP view of the chest FINDINGS: Cardiac silhouette remains enlarged which is unchanged. There is pulmonary vascular congestion without overt pulmonary edema. No pneumothorax. Blunting of the bilateral costophrenic angles suggests trace effusions with linear subsegmental left basilar opacities which appear unchanged. Linear subsegmental atelectasis or scarring redemonstrated within the lateral left midlung. Bones of the chest appear grossly intact. IMPRESSION: 1. Cardiomegaly and pulmonary vascular congestion without overt pulmonary edema. 2. Trace bilateral pleural effusions with subsegmental left basilar and lateral left midlung atelectasis/scarring. The above report was generated using voice recognition software. It may contain grammatical, syntax or spelling errors. Electronically signed by: Solo Roberts M.D. 09/28/2017 6:45 PM Dictated Date/Time: 09/28/2017 6:43 PM The status of this report is Signed. Draft = Not yet reviewed or approved by Radiologist. Signed = Reviewed and approved by Radiologist. Consultations: Nephrology- Dr. Pillai Medication Reconciliation New Medications: Oseltamivir Phosphate (Tamiflu) 30 Mg Cap 1 CAP PO DAILY for 1 Day, #1 CAP On Thursday (10/02) after dialysis Prednisone Tab (Prednisone) 10 Mg Tab 10 MG PO UD for 7 Days, #16 TAB 40 mg x2 days, 20 mg x3 days, 10 mg x2 days Benzonatate (Benzonatate) 100 Mg Cap 100 MG PO TID PRN for Cough for 3 Days, #9 CAP Doxycycline Hyclate (Doxycycline Hyclate) 100 Mg Cap 100 MG PO BID, #8 CAP Take fri dose 10/01 evening Continued Medications: Calcium Acetate (Phosphate Bin (Phoslo 667 Mg) 667 Mg Cap 667 MG PO BID Carvedilol (Carvedilol) 25 Mg Tab 25 MG PO BID for 30 Days Home O2 Therapy (Oxygen) Gas 2 LITERS NA PRN, BTL Insulin Aspart (Novolog Flexpen) 100 Units/Ml Inj 1 DOSE SC TID 10 units plus COVERAGE DIRECTED BY SLIDING SCALE Insulin Glargine (Lantus Solostar) 100 Unit/Ml Inj 13 UNITS SC AMPM, PEN Mometasone Furoate-Formoterol (Dulera 200/5 Mcg) 1 Aer Aer 2 PUFFS INH BID Tiotropium [place] (Spiriva Handihaler) 30 Puff/540 Mcg Aerp 1 CAP INH DAILY, INHALER Vitamin B Cmplx/Vitc/Folic Ac (Nephrocaps) Cap 1 CAP PO QAM, CAP Discontinued Medications: Levofloxacin (Levaquin) 500 Mg Tab 500 MG PO q48, #2 TAB Prednisone (Prednisone) 20 Mg Tab 0 PO DAILY, #9 TAB 3 TABS DAILY FOR 1 DAYS, THEN 2 TABS DAILY FOR 2 DAYS, THEN 1 TAB DAILY FOR 2 DAYS. Discharge Exam Review of Systems: Constitutional: No fever, No chills, No sweats, No weakness, No fatigue ENT: No hearing loss Respiratory: + cough, No shortness of breath, No hemoptysis Cardiovascular: No chest pain, No edema, No palpitations Abdomen: No pain, No nausea, No vomiting, No diarrhea, No constipation Musculoskeletal: No joint pain, No muscle pain, No swelling, No calf pain Genitourinary - Female: No dysuria, No hematuria Neurologic: No weakness, No numbness/tingling Psychiatric: No depression symptoms, No anxiety Endocrine: No fatigue Hematologic / Lymphatic: No abnormal bleeding/bruising Integumentary: No rash, No itch, No new/changing skin lesions Physical Exam: General Appearance: no apparent distress, + obese Eyes: normal inspection, PERRL ENT: hearing grossly normal Neck: supple Respiratory/Chest: lungs clear, no respiratory distress, no accessory muscle use, + decreased breath sounds (throughout ) Cardiovascular: regular rate, rhythm Abdomen / GI: normal bowel sounds, non tender, soft Extremities: no calf tenderness, no pedal edema Neurologic/Psychiatric: alert, normal mood/affect, oriented x 3 Skin: normal color, warm/dry, no rash Hospital Course 66 y/o F Hx ESRD, COPD, Diastolic CHF, DMII, HTN, HPL. Presents with SOB x 3 days. States she had a fever 1 or 2 days prior. The pt was evaluated in the ER 2 days prior and discharged at her own request with treatment for a presumed COPD exacerbation. She returns to the hospital as her SOB has not improved. She is hypoxic on arrival. A rapid flu is (+) for influenza A. The pt admits to a productive cough. She denies CP, N/V, diarrhea or dysuria. She is able to urinate a small amount daily despite requiring dialysis and a UA from her previous visit proved (+) for E Coli. Acute on chronic COPD exacerbation, h/o asthma, + influenza A: - O2 protocol, wean as tolerated with O2 sat 89% or greater on RA- has PRN O2 supplement at home - DuoNeb QID and PRN for SOB/wheezing - Continue Dulera; Hold Spiriva while receiving DuoNebs- resume home inhalers at discharge - Doxycycline 100 mg BID x7 days - IV Solu Medrol 40 mg BID- Prednisone 40 mg taper x7 days at discharge - Tessalon perles PRN for cough - Droplet precautions - Tamiflu x5 days- last day of treatment on 10/02 QT is prolonged on EKG: - Monitor on tele- no acute events - Follow EKGs - [facility] WNL - Lexii d/c'ed at admission ESRD on HD MWF: - Continue Nephrocaps and PhosLo - Consult nephrology for dialysis management T2DM- hgbA1c 8.4%: - Home regimen of Lantus 13 u BID + NovoLog TID- resume home regimen at discharge - Pharmacy consulted for glycemic management - f/u w/ PCP for continued glycemic management Diastolic CHF- STABLE: - Continue Coreg 25 mg BID - ECHO 10/2015- preserved EF, grade II diastolic dysfunction, LVH Abnormal UA- past records show E.coli UTI: - Doxycycline as above - UCx never sent prior to starting antibiotic- UCx w/ Lactobacillus species GERD: Protonix daily + Tums PRN- intrusted patient to take Prilosec and Tums PRN at discharge DVT prophylaxis: Heparin TID Code status: LEVEL I, FULL Dispo: Discharge to home Supervising Note Dr. Westfall I performed a history and physical examination on the patient. I reviewed above note and agree with it. I discussed plan with APC and patient. During my face to face encounter with the patient, I answered all of the patient's questions. Total Time Spent: Greater than 30 minutes This includes examination of the patient, discharge planning, medication reconciliation, and communication with other providers. Discharge Instructions Please refer to the electronic Patient Visit Report (Discharge Instructions) for additional information. Follow-Up Please follow-up with your PCP within 5-7 days Please follow-up/keep all of your subspecialty appointments Continue dialysis MWF Additional Copies To Karla Todd M.D.
--- NOTE | 2017-10-01 11:57 | Pharmacy Progress Note ---
Pharmacy Glycemic Short Note 2 Date of Service Oct 01, 2017. OUTPATIENT ANTIDIABETIC REGIMEN: * Lantus 13 units SQ BID * NovoLog 10 units SQ TIDM + SSI ASSESSMENT: 09/30/17 * 67yo T2DM female well known to pharmacy from previous admissions/glycemic consults * Pt typically requires ~ 60 units of insulin per day while admitted, however, pt is ordered RTC high dose IV solumedrol but dose tapered from Q8hrs to Q12hrs. Since total daily dose is still above 80mg/dl high stress insulin dosing needed. * An additional ~ 0.4 units/kg/day (34 units) will be needed to for this severe steroid induced hyperglycemia. Will add this to outpatient regimen and titrate based on BSG trends. * Will change from 60 units/day to ~ 90-100 units/day for steroid induced hyperglycemia * Pt has received 91 units of insulin over the past 24hrs * 50 units basal insulin with Lantus * 41 units of prandial/correctional insulin with NovoLog * BSGs 09/29: 92, 143, 325, 270, 280, 190 * BSgs 09/30: 203, 197, 313 * AM fasting BSG is elevated, however hesitant to increase basal insulin since steroid dose decreased today * Post-prandial BSGs are elevated, will tighten CR 10/01/17 * Patient received 63 units of insulin yesterday with BSGs ranging from 142-313 mg/dL * Steroids reduced today to prednisone 40 mg daily (she did still receive 40 mg of Solu-medrol last night) * Fasting BSG is improved this AM but will need to decrease PM dose of Lantus now that she's on just once daily steroids. Will continue with higher dose in the AM. * CF/CR may need loosened tomorrow but with postprandial BSGs still elevated yesterday, I do not want to make changes today PLAN FOR INPATIENT GLYCEMIC CONTROL: * Basal insulin: * Continue Lantus 20 units qAM * Decrease Lantus to 15 units qPM * Bolus insulin: continue * NovoLog per scale ACHS or Q6hrs while NPO * Goal Range: Low 120 mg/dL - High 150 mg/dL * Correction Factor: 20 mg/dL/unit * Nutritional / Prandial insulin per carb ratio of 1 unit per 5 grams CHO consumed DISCHARGE RECOMMENDATIONS: * Continue outpatient regimen on discharge * If patient to be discharged on steroids, will need higher doses of insulin. Consider calling glycemic pharmacist for recommendations.
[2017-10-01 12:05] VITALS: BP 127/91; PULSE 73; TEMP 36.4; O2SAT 89
--- NOTE | 2017-10-01 12:11 | Nephrology Progress Note ---
Nephrology Progress Note Date of Service Oct 01, 2017. Chief Complaint f/u for ESRD on HD Subjective Gemma was seen and examined in her room this am. Overall feeling better, still has cough, but SOB resolved. No fever or chills, BP stable. Tolerated dialysis well yesterday. Review of Systems A complete review of systems was performed. Pertinent positives are noted above. All other systems are negative. Vital Signs Last 8 Hrs Date Time Temp Pulse Resp B/P (MAP) Pulse Ox O2 Delivery O2 Flow Rate FiO2 10/01/17 08:00 Nasal Cannula 2.0 10/01/17 07:14 36.4 64 20 137/69 (91) 94 Nasal Cannula 2.0 10/01/17 06:55 65 18 100 Nasal Cannula 2.0 10/01/17 04:05 Nasal Cannula 2.0 10/01/17 03:10 36.5 67 23 136/71 (92) 98 Nasal Cannula 2.0 Last Recorded Weight Weight (Kilograms): 83.600 Physical Exam GENERAL: elderly female, AAA x 3, pleasant, healthy-appearing, not in any distress. NECK: Supple, no JVD. RESPIRATORY: Normal breathing efforts, no accessory muscle use, clear to auscultation bilaterally, no rales has occasional wheezes bilaterally. CARDIOVASCULAR: S1, S2 normal, rate rhythm regular. EXTREMITY: No lower extremity edema NEURO: speech fluent. PSYCHIATRY: Normal mood and judgment Family History FH: HTN (hypertension) Social History Smoking Status: Never smoker Drug Use: none Marital Status: Housing Status: lives with family Occupation: retired Laboratory Results Past 24 Hours 10/01/17 05:32 10/01/17 05:32 Test 09/30/17 10:46 09/30/17 20:24 10/01/17 00:00 10/01/17 04:03 Bedside Glucose 313 mg/dl (70-90) 164 mg/dl (70-90) 224 mg/dl (70-90) 142 mg/dl (70-90) Test 10/01/17 05:32 10/01/17 06:42 Red Blood Count 3.66 M/uL (4.2-5.4) Mean Corpuscular Volume 97.0 fL (80-100) Mean Corpuscular Hemoglobin 31.7 pg (25-34) Mean Corpuscular Hemoglobin Concent 32.7 g/dl (32-36) RDW Standard Deviation 55.7 fL (36.4-46.3) RDW Coefficient of Variation 15.8 % (11.5-14.5) Mean Platelet Volume 10.0 fL (7.4-10.4) Anion Gap 8.0 mmol/L (3-11) Est Creatinine Clear Calc Drug Dose 20.9 ml/min Estimated GFR () 21.6 Estimated GFR (Non- 18.6 BUN/Creatinine Ratio 17.0 (10-20) Calcium Level 7.7 mg/dl (8.5-10.1) Bedside Glucose 179 mg/dl (70-90) Allergies Coded Allergies: Hydralazine (Verified Allergy, Intermediate, rash, 09/28/17) Isosorbide Nitrate (Verified Allergy, Unknown, ITCHING, 09/28/17) EZE Inhibitors (Verified Adverse Reaction, Unknown, DUE TO CKD, 09/28/17) Medications Current Inpatient Medications Medications (Trade) Dose Ordered Sig/Tu Route Start Time Stop Time Status Last Admin Dose Admin Calcium Acetate (Phoslo Cap) 667 mg BIDM PO 09/29/17 07:30 10/29/17 07:59 09/30/17 08:51 667 MG Carvedilol (Coreg Tab) 25 mg BID PO 09/28/17 21:00 10/28/17 20:59 09/30/17 21:59 25 MG Vitamin B Complex/ Vit C/Folic Acid (Nephrocaps) 1 cap QAM PO 09/29/17 09:00 10/29/17 08:59 09/30/17 08:52 1 CAP Heparin Sodium (Porcine) (Heparin Sq 5000 Unit/0.5ml) 5,000 unit Q8 SQ 09/28/17 22:00 10/28/17 21:59 10/01/17 05:55 5,000 UNIT Acetaminophen (Tylenol Tab) 650 mg Q4H PRN PO 09/28/17 20:00 10/28/17 19:59 09/28/17 22:17 650 MG Ondansetron HCl (Zofran Inj) 4 mg Q6H PRN IV 09/28/17 20:00 10/28/17 19:59 Morphine Sulfate (MoRPHine SULFATE INJ) 2 mg Q30M PRN IV 09/28/17 20:00 10/12/17 19:59 Polyethylene (Miralax Powder Packet) 17 gm DAILY PRN PO 09/28/17 20:00 10/28/17 19:59 Albuterol/ Ipratropium (Duoneb) 3 ml Q6R INH 09/28/17 21:00 10/28/17 20:59 10/01/17 06:55 3 ML Albuterol Sulfate (Ventolin 0.083% 2.5MG/3ML Neb) 2.5 mg Q4R PRN INH 09/28/17 20:30 10/28/17 20:29 Doxycycline Hyclate (Vibramycin Cap) 100 mg BID PO 09/29/17 08:00 10/06/17 07:59 09/30/17 21:59 100 MG Oseltamivir Phosphate (Tamiflu Susp) 30 mg WeFr@1800 PO 09/30/17 18:00 10/02/17 18:30 09/30/17 18:00 30 MG Insulin Aspart (novoLOG ASPART) SLIDING SCALE G... ACHS SC 09/28/17 21:00 10/28/17 20:59 09/30/17 22:03 1 UNITS Glucose (Glucose 40% Gel) 15-30 GRAMS 15 GRAMS... UD PRN PO 09/28/17 21:30 10/28/17 21:29 Glucose (Glucose Chew Tab) 4-8 Tablets 4 Tabl... UD PRN PO 09/28/17 21:30 10/28/17 21:29 Dextrose (Dextrose 50% 50ML Syringe) 25-50ML OF 50% DW IV FOR... UD PRN IV 09/28/17 21:30 10/28/17 21:29 Glucagon (Glucagon Inj) 1 mg UD PRN SQ 09/28/17 21:30 10/28/17 21:29 Miscellaneous Information (Consult Glycemic Management Pharmacy) 1 ea UD PRN N/A 09/29/17 00:45 10/29/17 00:44 Insulin Glargine (Lantus Solostar Pen) 20 units BID SC 09/29/17 10:15 10/29/17 10:14 Future hold 09/30/17 22:04 20 UNITS Pantoprazole Sodium (Protonix Tab) 40 mg QAM PO 09/29/17 19:00 10/02/17 09:01 09/30/17 08:52 40 MG Calcium Carbonate (Tums Chew Tab) 500 mg UD PRN PO 09/29/17 17:00 10/29/17 16:59 09/30/17 08:54 500 MG Mometasone Furoate/ Formoterol Fumar (Dulera) 2 ea BID INH 09/30/17 09:00 10/30/17 08:59 09/30/17 23:54 2 EA Benzonatate (Tessalon Perles Cap) 100 mg TID PRN PO 09/30/17 10:45 10/30/17 10:44 09/30/17 22:30 100 MG Prednisone (PredniSONE TAB) 40 mg QAM PO 10/01/17 09:00 10/31/17 08:59 Impression (1) ESRD (end stage renal disease) on dialysis (2) Secondary hyperparathyroidism of renal origin (3) Influenza A (4) COPD exacerbation (5) HYPERTENSION NOS (6) Anemia 67 year female with end-stage renal disease on hemodialysis Thursday, Thursday, Thursday at a.m. continue on frozen his kidney care admitted to the hospital with COPD exacerbation and influenza. Started Tamiflu and cover with empiric antibiotic. Current dose line was seems slightly volume overloaded, electrolyte and blood pressure acceptable. Had dialysis Thursday had full treatment. Has history of hypertension, diabetes, anemia and secondary hyperparathyroidism. Spell Recommendations --had dialysis yesterday, currently volume status, electrolyte and blood pressure acceptable --limit fluid intake, avoid IV fluid, low-salt and low-potassium diet --dose meds for GFR less than 10 --hemoglobin stable --continue on phosphate binder with meal and Nephrocaps --omeprazole 20 mg p.o. daily for acid reflux and Tums p.r.n. --if she was discharged, she will go to outpatient unit for dialysis tomorrow morning. will follow
[2017-10-01] MEDS ORDERED: OSEL30CA PO (13:04)
[2017-10-01 14:23] VITALS: BP 127/91; PULSE 73; TEMP 36.4; O2SAT 89
[2017-10-01] MEDS ORDERED: BENZ100C7 PO (14:57)
[2017-10-01] MEDS ORDERED: INSULIN GLARGINE SOLOSTAR 100 UNITS/ML 3 ML PEN SC SCH (21:00)
[2017-10-02] MEDS ORDERED: INSULIN GLARGINE SOLOSTAR 100 UNITS/ML 3 ML PEN SC SCH (09:00)
== END 2017-10-01 14:50 | disposition home or self-care (01) | DRG 193 ==
LOC: C.EDB 16:52 → C.2T 19:57 → ENRESERV 20:08
PROVIDERS: ADMIT Internal Medicine; ATTEND Internal Medicine
DX: J10.1 Influenza due to other identified influenza virus with other respiratory manifestations (principal); N18.6 End stage renal disease; J44.1 Chronic obstructive pulmonary disease with (acute) exacerbation; J44.0 Chronic obstructive pulmonary disease with (acute) lower respiratory infection; I13.2 Hypertensive heart and chronic kidney disease with heart failure and with stage 5 chronic kidney disease, or end stage renal disease; I50.32 Chronic diastolic (congestive) heart failure; N25.81 Secondary hyperparathyroidism of renal origin; N39.0 Urinary tract infection, site not specified; B96.89 Other specified bacterial agents as the cause of diseases classified elsewhere; E11.22 Type 2 diabetes mellitus with diabetic chronic kidney disease; I45.81 Long QT syndrome; R09.02 Hypoxemia; E87.70 Fluid overload, unspecified; E11.65 Type 2 diabetes mellitus with hyperglycemia; T38.0X5A Adverse effect of glucocorticoids and synthetic analogues, initial encounter; D64.9 Anemia, unspecified; K21.9 Gastro-esophageal reflux disease without esophagitis; E78.5 Hyperlipidemia, unspecified; Z99.2 Dependence on renal dialysis; Z99.81 Dependence on supplemental oxygen; Z77.22 Contact with and (suspected) exposure to environmental tobacco smoke (acute) (chronic); Z86.14 Personal history of Methicillin resistant Staphylococcus aureus infection; Z79.4 Long term (current) use of insulin; Z79.51 Long term (current) use of inhaled steroids; Z79.52 Long term (current) use of systemic steroids; Z79.899 Other long term (current) drug therapy; Z88.8 Allergy status to other drugs, medicaments and biological substances

== ENCOUNTER 2017-10-04 17:10 | Observation (INO) | payer OTHER ==
[~2017-10-04] VITALS: Ht 157.5 cm; Wt 87.0 kg
[~2017-10-04 17:10] MED LIST changes: +BENZ100C7 PO; +DXY100 PO; -LEVO-366 PO; +PRED10TA PO; -PRED20TA PO
[2017-10-04] MEDS ORDERED: ALBUT/IPRATROP 3MG/0.5MG NEB 3 ML VIAL INH STA ×2 (17:43→20:38)
--- NOTE | 2017-10-04 17:46 | EMERGENCY ROOM VISIT NOTE ---
History Report prepared by Dennis: Pedro Luis Llamas Under the Supervision of: Dr. Susana Cano D.O. First contact with patient: 17:29 Chief Complaint: RESPIRATORY PROBLEMS Stated Complaint: Respiratory problems Nursing Triage Summary: RECENT ADMISSION FOR FLU, NOW PAIN IN BACK AND COUGH. History of Present Illness The patient is a 67 year old female who presents to the Emergency Room with complaints of worsening cough and shortness of breath. Patient with a history of recent admission for COPD exacerbation, complicated by influenza A. Patient is a chronic kidney disease patient on dialysis. Patient was recently discharged on a steroid taper, Tessalon Perles, doxycycline for a urinary tract infection that was also found, nebulizer treatments, and instructed to use her home oxygen which had previously been when necessary, all the time now at 2 L/ m. Patient states she has felt more short of breath despite doing all of this, and turned her oxygen up at home today. She feels that she is not on steroids given her prior experience with COPD exacerbations. She also states she is having significant nausea and reflux that she feels is related to her antibiotic. Patient also complains of increased mid back pain which she feels is related to her kidneys. Patient denies any vomiting or diarrhea, denies fevers chills. States her cough feels congested but has not been productive. Denies rashes or sores, denies swelling in her lower extremity. Patient states she did go to her dialysis treatment on Thursday. Source of History: patient Onset: recently Position: other (Respiratory System) Symptom Intensity: moderate Quality: other (Shortness of breath) Timing: worsening Associated Symptoms: + cough, + nausea, + back pain (mid), No fevers, No chills, No vomiting, No diarrhea, No rash Note: She denies any lower extremity swelling. Review of Systems See HPI for pertinent positives & negatives. A total of 10 systems reviewed and were otherwise negative. 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 (9) Congestive heart failure (CHF) (10) Congestive heart failure (CHF) (11) Congestive heart failure with left ventricular systolic dysfunction (12) COPD (chronic obstructive pulmonary disease) (13) COPD exacerbation (14) DIAB MANJIT WO COMPL, TYPE II OR UNSPEC TYPE, NOT UNCNTRLD (15) Diabetes (16) Diabetic foot infection (17) Diabetic ulcer of right foot (18) Elevated troponin (19) ESRD (end stage renal disease) on dialysis (20) Hypercholesterolemia (21) Hyperkalemia, diminished renal excretion (22) Hypertension (23) HYPERTENSION NOS (24) Hypoxemia (25) Influenza A (26) Kidney disease (27) Metabolic acidosis with normal anion gap and failure of bicarbonate regeneration (28) Obesity (29) Obstructive sleep apnea (30) Osteomyelitis (31) Osteomyelitis of left foot (32) Peripheral neuropathy (33) PNEUMONIA, ORGANISM NOS (34) Proteinuria (35) Pulmonary edema (36) Secondary hyperparathyroidism of renal origin (37) SOB (shortness of breath) (38) Vitamin D deficiency, unspecified (39) Volume overload Family History FH: HTN (hypertension) Social History Smoking Status: Never Smoker Drug Use: none Marital Status: Housing Status: lives with family Occupation Status: retired Current/Historical Medications Scheduled Calcium Acetate (Phosphate Bin (Phoslo 667 Mg), 667 MG PO BID Carvedilol (Coreg), 25 MG PO BID Doxycycline Hyclate (Doxycycline Hyclate), 100 MG PO BID Home O2 Therapy (Oxygen), 2 LITERS NA PRN Insulin Aspart (Novolog Flexpen), 1 DOSE SC TID Insulin Glargine (Lantus Solostar), 13 UNITS SC AMPM Mometasone Furoate-Formoterol (Dulera 200/5 Mcg), 2 PUFFS INH BID Prednisone Tab (Prednisone), 10 MG PO UD Prednisone Tab (Prednisone), 10 MG PO DIRECTED Tiotropium [place] (Spiriva Handihaler), 1 CAP INH DAILY Vitamin B Cmplx/Vitc/Folic Ac (Nephrocaps), 1 CAP PO QAM Scheduled PRN Benzonatate (Tessalon Perles), 100 MG PO TID PRN for Cough Allergies Coded Allergies: Hydralazine (Verified Allergy, Intermediate, rash, 10/04/17) Isosorbide Nitrate (Verified Allergy, Unknown, ITCHING, 10/04/17) EZE Inhibitors (Verified Adverse Reaction, Unknown, DUE TO CKD, 10/04/17) Physical Exam Vital Signs Date Time Temp Pulse Resp B/P (MAP) Pulse Ox O2 Delivery O2 Flow Rate FiO2 10/04/17 21:10 99 Nebulizer 8.0 10/04/17 21:06 77 18 96 10/04/17 21:01 164/76 10/04/17 20:55 79 20 96 Nasal Cannula 3.0 10/04/17 20:35 77 10/04/17 20:31 152/63 10/04/17 20:25 77 20 95 10/04/17 20:10 76 19 95 10/04/17 20:01 149/63 10/04/17 19:55 82 27 96 10/04/17 19:40 78 23 95 10/04/17 19:35 77 20 95 10/04/17 19:31 152/65 10/04/17 19:20 80 29 96 10/04/17 19:05 79 28 95 10/04/17 19:00 79 22 135/95 95 Nasal Cannula 3.0 10/04/17 18:55 84 23 10/04/17 17:28 36.6 90 18 167/87 93 Nasal Cannula 3.0 10/04/17 17:26 85 10/04/17 17:21 93 Nasal Cannula 3.0 Physical Exam GENERAL: alert, ill appearing, well nourished, no distress, non-toxic EYE EXAM: normal conjunctiva, PERRL and EOM's grossly intact OROPHARYNX: no exudate, no erythema, lips, buccal mucosa, and tongue normal and mucous membranes are mildly dry NECK: supple, no nuchal rigidity, no adenopathy, non-tender LUNGS: Coarse breath sounds bilaterally with a productive cough noted to exam. Normal chest wall mechanics. No wheezes. HEART: no murmurs, S1 normal and S2 normal ABDOMEN: Obese, abdomen soft, non-tender, normo-active bowel sounds, no masses, no rebound or guarding. BACK: Back is symmetrical on inspection and there is no deformity, no midline tenderness, no CVA tenderness. SKIN: no rashes and no bruising UPPER EXTREMITIES: upper extremities are grossly normal. LOWER EXTREMITIES: No pitting edema. Well healed surgical scars to the right ankle at both medial and lateral malleoli. NEURO EXAM: Normal sensorium, cranial nerves II-XII grossly intact, normal speech, no gross weakness of arms, no gross weakness of legs. Medical Decision & Procedures ER Provider Diagnostic Interpretation: Radiology results have been interpreted by the radiologist and reviewed by me. CHEST 2 VIEWS ROUTINE HISTORY: Cough. Short of breath. COMPARISON: Chest 09/28/2017. FINDINGS: The heart remains enlarged. There is mild central pulmonary vascular congestion without overt edema. Trace left pleural effusion has improved. Left basilar densities persist. No pneumothorax. No new focal lung consolidations. IMPRESSION: 1. Stable cardiac megaly and mild pulmonary basilar congestion. 2. Trace left pleural effusion is improved. 3. Left basilar densities persist. This may represent atelectasis or scarring given the long-standing stability. Electronically signed by: Wayne Pham M.D. 10/04/2017 7:01 PM Dictated Date/Time: 10/04/2017 6:58 PM Laboratory Results Test 10/04/17 17:35 10/04/17 18:05 10/04/17 20:40 Prothrombin Time 11.1 SECONDS (9.0-12.0) Prothromb Time International Ratio 1.1 (0.9-1.1) Phosphorus Level 3.8 mg/dl (2.5-4.9) Magnesium Level 2.1 mg/dl (1.8-2.4) Total Bilirubin 0.5 mg/dl (0.2-1) Aspartate Amino Transf (AST/SGOT) 20 U/L (15-37) Alanine Aminotransferase (ALT/SGPT) 27 U/L (12-78) Alkaline Phosphatase 118 U/L (45-117) Total Protein 7.0 gm/dl (6.4-8.2) Albumin 3.0 gm/dl (3.4-5.0) Globulin 4.0 gm/dl (2.5-4.0) Albumin/Globulin Ratio 0.8 (0.9-2) Beta-Hydroxybutyric Acid 1.42 mg/dL (0.2-2.81) Bedside Lactic Acid Venous 1.03 mmol/L (0.90-1.70) Urine Color YELLOW Urine Appearance CLOUDY (CLEAR) Urine pH 5.0 (4.5-7.5) Urine Specific [place] 1.016 (1.000-1.030) Urine Protein 2+ (NEG) Urine Glucose (UA) 2+ (NEG) Urine Ketones NEG (NEG) Urine Occult Blood NEG (NEG) Urine Nitrite NEG (NEG) Urine Bilirubin NEG (NEG) Urine Urobilinogen NEG (NEG) Urine Leukocyte Esterase TRACE (NEG) Urine WBC (Auto) 1-5 /hpf (0-5) Urine RBC (Auto) 0-4 /hpf (0-4) Urine Hyaline Casts (Auto) 1-5 /lpf (0-5) Urine Epithelial Cells (Auto) >30 /lpf (0-5) Urine Bacteria (Auto) NEG (NEG) Urine Yeast (Auto) BUDDING (NONE PRSENT) Laboratory results per my review. Medications Administered Medications (Trade) Dose Ordered Sig/Tu Route Start Time Stop Time Status Last Admin Dose Admin Albuterol/ Ipratropium (Duoneb) 3 ml NOW STAT INH 10/04/17 17:43 10/04/17 17:45 DC 10/04/17 18:04 3 ML Al Hydroxide/Mg Hydroxide (Maalox Susp) 15 ml NOW STAT PO 10/04/17 17:47 10/04/17 17:48 DC 10/04/17 18:05 15 ML Albuterol/ Ipratropium (Duoneb) 3 ml NOW STAT INH 10/04/17 20:38 10/04/17 20:39 DC 10/04/17 21:07 3 ML ECG Per My Interpretation Indication: SOB/dyspnea Rate (beats per minute): 78 Rhythm: normal sinus Findings: T-wave inversion (aVL and V6), left axis deviation, no ectopy, other (Mildly prolonged QT interval) Comparison ECG Date: 01 Oct 2017 Change: no significant change ED Course 1728: The patient was evaluated in room B11. A complete history and physical exam was performed. 1742: Ordered DuoNeb 3 ml INH 1746: Ordered Maalox Susp 15 ml PO 1957: Upon reevaluation, the patient is still feeling unwell. 2021: Upon reevaluation, the patient is resting. I discussed the findings and the treatment plan with the patient. She expresses agreement and understanding. I spoke with Dr. Velazquez of the [place] [facility]. She will be evaluated for further management. Medical Decision Differential diagnosis: Etiologies such as infections, influenza, reactive airway disease, pneumonia, pneumothorax, COPD, CHF, cardiac ischemia, pulmonary embolism, musculoskeletal, gastrointestinal, as well as others were entertained. Patient with stable vital signs here, however did require additional oxygen compared to what she was originally discharged on at home. On 3-4 L by nasal cannula patient's sats were in the mid 90s. Patient given neb treatment here. Patient given additional GI meds due to her increased reflux likely secondary to her doxycycline. No evidence of GI bleed. Discussed with hospitalist for additional evaluation and treatment. I do not suspect PE, no evidence of pneumonia or effusion on chest x-ray, doubt additional cardiac etiology, doubt bacteremia/sepsis. Medication Reconcilliation Current Medication List: was personally reviewed by me Blood Pressure Screening Patient's blood pressure: Elevated blood pressure Referred to the hospitalist Consults Time Called: 2017 Consulting Physician: Dr. Marcus LYN Returned Call: 2021 I reviewed the patient's case with him. He will evaluate the patient for further management. Impression Primary Impression: Dyspnea Additional Impressions: COPD exacerbation Influenza Chronic kidney disease on chronic dialysis Scribe Attestation The scribe's documentation has been prepared under my direction and personally reviewed by me in its entirety. I confirm that the note above accurately reflects all work, treatment, procedures, and medical decision making performed by me. Departure Information Dispostion Being Evaluated By Hospitalist Prescriptions Prednisone Tab (PREDNISONE) 10 Mg Tab 10 MG PO DIRECTED for 18 Days, #63 TAB Take 6 tabs x 3 days, 5 tabs x 3 days, 4 tabs x 3 days, 3 tabs x 3 days, 2 tabs x 3 days, and 1 tab x 3 days Prov: Castro Encarnacion MD 10/05/17 Referrals Karla Todd M.D. (PCP) Patient Instructions My [facility] Problem Qualifiers Primary Impression: Dyspnea Dyspnea type: shortness of breath Qualified Codes: R06.02 - Shortness of breath
[2017-10-04] MEDS ORDERED: ALUMINUM/MAGNESIUM SUSP 30 ML UDC PO STA (17:47)
[2017-10-04 17:52] LABS: BASO % 0.2 %; BASO ABS # 0.02 K/uL (0-0.2); EOS % 0.1 %; EOS ABS # 0.01 K/uL (0-0.5); HEMATOCRIT 38.1 % (37-47); HEMOGLOBIN 12.5 g/dL (12.0-16.0); IG# 0.21 K/uL (0.00-0.02); LYMPH % 4.2 %; LYMPH ABS # 0.48 K/uL (1.2-3.4); MEAN CELL VOLUME 97.9 fL (80-100); MEAN CORPUSCULAR HEMOGLOBIN 32.1 pg (25-34); MEAN CORPUSCULAR HGB CONC 32.8 g/dl (32-36); MEAN PLATELET VOLUME 9.3 fL (7.4-10.4); MONO % 2.8 %; MONO ABS # 0.32 K/uL (0.11-0.59); NEUT % 90.9 %; NEUT ABS # 10.35 K/uL (1.4-6.5); PLATELET COUNT 213 K/uL (130-400); RED CELL DISTRIBUTION WIDTH CV 16.1 % (11.5-14.5); RED CELL DISTRIBUTION WIDTH SD 56.6 fL (36.4-46.3); WHITE BLOOD COUNT 11.39 K/uL (4.8-10.8)
[2017-10-04] MEDS ORDERED: CARV25TA2 PO (17:55)
[2017-10-04] MEDS ORDERED: BENZ100C84 PO (17:56)
[2017-10-04 17:59] LABS: INR 1.1 (0.9-1.1)
[2017-10-04 18:10] LABS: CALCIUM 8.1 mg/dl (8.5-10.1); CREATININE 3.2 mg/dl (0.60-1.20); POTASSIUM 4.6 mmol/L (3.5-5.1)
[2017-10-04 18:13] LABS: PHOSPHORUS 3.8 mg/dl (2.5-4.9)
--- NOTE | 2017-10-04 19:03 | DIAGNOSTIC IMAGING REPORT ---
CHEST 2 VIEWS ROUTINE HISTORY: Cough. Short of breath. COMPARISON: Chest 09/28/2017. FINDINGS: The heart remains enlarged. There is mild central pulmonary vascular congestion without overt edema. Trace left pleural effusion has improved. Left basilar densities persist. No pneumothorax. No new focal lung consolidations. IMPRESSION: 1. Stable cardiac megaly and mild pulmonary basilar congestion. 2. Trace left pleural effusion is improved. 3. Left basilar densities persist. This may represent atelectasis or scarring given the long-standing stability. Electronically signed by: Wayne Pham M.D. 10/04/2017 7:01 PM Dictated Date/Time: 10/04/2017 6:58 PM
[2017-10-04] MEDS ORDERED: MAGNESIUM HYDROXIDE SUSP 30 ML UDC PO PRN (21:15)
[2017-10-04] MEDS ORDERED: ONDANSETRON INJ 2 MG/ML 2 ML VIAL IV PRN (21:15)
[2017-10-04] MEDS ORDERED: ACETAMINOPHEN 325 MG TAB PO PRN (21:15)
[2017-10-04] MEDS ORDERED: POLYETHYLENE (MIRALAX) 17 GM PACK PO PRN (21:15)
[2017-10-04] MEDS ORDERED: IV FLUIDS COMPLETED PRN (21:30)
[2017-10-04 22:00] VITALS: BP 144/78; PULSE 83; TEMP 36.8; O2SAT 91; BMI 35.3
[2017-10-04] MEDS: DULERA~ORDER AWAITING ACTION SCH (22:15)
[2017-10-04] MEDS ORDERED: PHARMACY GLYCEMIC MGMT CONSULT PRN (22:15)
--- NOTE | 2017-10-04 22:29 | History and Physical ---
History & Physical Date & Time of Service: Oct 04, 2017 at 21:14 Chief Complaint: Respiratory problems Primary Care Physician: Karla Todd M.D. History of Present Illness Source: patient, hospital records 76 yo F with DM, CKD Stage IV , COPD on home O2 at 2 L, CHF presenting with SOB Cough Patient was recently admitted Sep 28 for COPD exacerbation in setting of [facility]. She had been seen in the ED two days prior to that ans discharged at her own request for COPD exacerbation. Upoin returning after no improvement in symptoms , she was found to have positive flu swab on arriva. She waseventually sent home with PO steroid taper 40 mg taper x 7 days, doxycycline x 7 days , Tamiflu x 5 days ( completed). Since discharge , she has felt she has not improved. Currently she reports worsening SOB , cough today. She increased her Oxygen to 3L today, and she had nebulizer treament at home withotu significant improvement and subsequently called for ambulance. NO chest pain, fever, chills , calf pain or swelling. She does report chronic back pain she attributes to kidney. + nausea, no fever, + upset stomch, no diarrhea. She follows with PCP, Dr Todd and [facility]ado Operator Dr Coley. She is on [facility] schedule for dialysis. In the ED, she arrived afebrile, 93-96 % sat on 3L. She had [address] of 11.36, Cr 3.2 within baseline range. Past Medical/Surgical History 1. ESRD - dialysis 2. COPD 3. Diastolic CHF 4. HTN 5. T2DM 6. Chronic Osteomyelitis 7. S/P R 3rd Toe Amputation Family History FH: HTN (hypertension) HTN Social History Smoking Status: Never Smoker Drug Use: none Marital Status: Housing status: lives with family Occupational Status: retired Immunizations History of Influenza Vaccine: Yes Influenza Vaccine Date: Jul 08, 2011 History of Tetanus Vaccine?: No History of Pneumococcal: No Pneumococcal Date: Mar 07, 2010 History of Hepatitis B Vaccine: No Multi-Drug Resistant Organisms History of MDRO: Yes Type of MDRO: MRSA Allergies Coded Allergies: Hydralazine (Verified Allergy, Intermediate, rash, 10/04/17) Isosorbide Nitrate (Verified Allergy, Unknown, ITCHING, 10/04/17) EZE Inhibitors (Verified Adverse Reaction, Unknown, DUE TO CKD, 10/04/17) Home Medications Scheduled Calcium Acetate (Phosphate Bin (Phoslo 667 Mg), 667 MG PO BID Carvedilol (Coreg), 25 MG PO BID Doxycycline Hyclate (Doxycycline Hyclate), 100 MG PO BID Home O2 Therapy (Oxygen), 2 LITERS NA PRN Insulin Aspart (Novolog Flexpen), 1 DOSE SC TID Insulin Glargine (Lantus Solostar), 13 UNITS SC AMPM Mometasone Furoate-Formoterol (Dulera 200/5 Mcg), 2 PUFFS INH BID Prednisone Tab (Prednisone), 10 MG PO UD Tiotropium [place] (Spiriva Handihaler), 1 CAP INH DAILY Vitamin B Cmplx/Vitc/Folic Ac (Nephrocaps), 1 CAP PO QAM Scheduled PRN Benzonatate (Tessalon Perles), 100 MG PO TID PRN for Cough Review of Systems Constitutional: No fever, No chills Respiratory: + cough, + sputum, + shortness of breath, No hemoptysis Cardiovascular: No chest pain, No edema, No palpitations Abdomen: + nausea, No pain, No vomiting, No diarrhea Genitourinary - Female: No urinary frequency, No urinary urgency, No hematuria Integumentary: No rash, No itch Physical Exam Vital Signs Date Time Temp Pulse Resp B/P (MAP) Pulse Ox O2 Delivery O2 Flow Rate FiO2 10/04/17 21:10 99 Nebulizer 8.0 10/04/17 21:01 164/76 10/04/17 20:55 79 20 96 Nasal Cannula 3.0 10/04/17 20:35 77 10/04/17 20:31 152/63 10/04/17 20:25 77 20 95 10/04/17 20:10 76 19 95 10/04/17 20:01 149/63 10/04/17 19:55 82 27 96 10/04/17 19:40 78 23 95 10/04/17 19:35 77 20 95 10/04/17 19:31 152/65 10/04/17 19:20 80 29 96 10/04/17 19:05 79 28 95 10/04/17 19:00 79 22 135/95 95 Nasal Cannula 3.0 10/04/17 18:55 84 23 10/04/17 17:28 36.6 90 18 167/87 93 Nasal Cannula 3.0 10/04/17 17:26 85 10/04/17 17:21 93 Nasal Cannula 3.0 GENERAL: alert, obese , no distress EYE EXAM: normal conjunctiva, PERRL and EOM's grossly intact OROPHARYNX: no exudate, no erythema, lips, buccal mucosa, and tongue normal and mucous membranes are moist NECK: supple, no nuchal rigidity, no adenopathy, non-tender LUNGS bilateral wheeze, scattered rhonchi HEART: systolic murmur, S1 normal and S2 normal ABDOMEN: abdomen soft, non-tender, normo-active bowel sounds, no masses, no rebound or guarding. BACK: Back is symmetrical on inspection and there is no deformity SKIN: no rashes and no bruising UPPER EXTREMITIES: upper extremities are grossly normal. LOWER EXTREMITIES: No pitting edema. NEURO EXAM: Normal sensorium, cranial nerves II-XII grossly intact, normal speech Diagnostics Laboratory Results Results Past 24 Hours Test 10/04/17 17:35 10/04/17 18:05 10/04/17 20:40 Range/Units White Blood Count 11.39 4.8-10.8 K/uL Red Blood Count 3.89 4.2-5.4 M/uL Hemoglobin 12.5 12.0-16.0 g/dL Hematocrit 38.1 37-47 % Mean Corpuscular Volume 97.9 80-100 fL Mean Corpuscular Hemoglobin 32.1 25-34 pg Mean Corpuscular Hemoglobin Concent 32.8 32-36 g/dl Platelet Count 213 130-400 K/uL Mean Platelet Volume 9.3 7.4-10.4 fL Neutrophils (%) (Auto) 90.9 % Lymphocytes (%) (Auto) 4.2 % Monocytes (%) (Auto) 2.8 % Eosinophils (%) (Auto) 0.1 % Basophils (%) (Auto) 0.2 % Neutrophils # (Auto) 10.35 1.4-6.5 K/uL Lymphocytes # (Auto) 0.48 1.2-3.4 K/uL Monocytes # (Auto) 0.32 0.11-0.59 K/uL Eosinophils # (Auto) 0.01 0-0.5 K/uL Basophils # (Auto) 0.02 0-0.2 K/uL RDW Standard Deviation 56.6 36.4-46.3 fL RDW Coefficient of Variation 16.1 11.5-14.5 % Immature Granulocyte % (Auto) 1.8 % Immature Granulocyte # (Auto) 0.21 0.00-0.02 K/uL Prothrombin Time 11.1 9.0-12.0 SECONDS Prothromb Time International Ratio 1.1 0.9-1.1 Sodium Level 135 136-145 mmol/L Potassium Level 4.6 3.5-5.1 mmol/L Chloride Level 96 98-107 mmol/L Carbon Dioxide Level 32 21-32 mmol/L Anion Gap 7.0 3-11 mmol/L Blood Urea Nitrogen 73 7-18 mg/dl Creatinine 3.20 0.60-1.20 mg/dl Est Creatinine Clear Calc Drug Dose 16.4 ml/min Estimated GFR () 16.3 Estimated GFR (Non- 14.1 BUN/Creatinine Ratio 22.9 10-20 Random Glucose 311 70-99 mg/dl Calcium Level 8.1 8.5-10.1 mg/dl Phosphorus Level 3.8 2.5-4.9 mg/dl Magnesium Level 2.1 1.8-2.4 mg/dl Total Bilirubin 0.5 0.2-1 mg/dl Aspartate Amino Transf (AST/SGOT) 20 15-37 U/L Alanine Aminotransferase (ALT/SGPT) 27 12-78 U/L Alkaline Phosphatase 118 45-117 U/L Total Protein 7.0 6.4-8.2 gm/dl Albumin 3.0 3.4-5.0 gm/dl Globulin 4.0 2.5-4.0 gm/dl Albumin/Globulin Ratio 0.8 0.9-2 Beta-Hydroxybutyric Acid 1.42 0.2-2.81 mg/dL Bedside Lactic Acid Venous 1.03 0.90-1.70 mmol/L Urine Color YELLOW Urine Appearance CLOUDY CLEAR Urine pH 5.0 4.5-7.5 Urine Specific [place] 1.016 1.000-1.030 Urine Protein 2+ NEG Urine Glucose (UA) 2+ NEG Urine Ketones NEG NEG Urine Occult Blood NEG NEG Urine Nitrite NEG NEG Urine Bilirubin NEG NEG Urine Urobilinogen NEG NEG Urine Leukocyte Esterase TRACE NEG Microbiology Results 10/04/17 Urine Culture, Received Pending Diagnostic Radiology CHEST 2 VIEWS ROUTINE HISTORY: Cough. Short of breath. COMPARISON: Chest 09/28/2017. FINDINGS: The heart remains enlarged. There is mild central pulmonary vascular congestion without overt edema. Trace left pleural effusion has improved. Left basilar densities persist. No pneumothorax. No new focal lung consolidations. IMPRESSION: 1. Stable cardiac megaly and mild pulmonary basilar congestion. 2. Trace left pleural effusion is improved. 3. Left basilar densities persist. This may represent atelectasis or scarring given the long-standing stability. Impression Assessment and Plan 67 yo F with COPD on Home Oxygen 2 L , diastolic CHF, HTN, ESRD on Dialysis, recently discharged Sep 15 for COPD exacerbation in the setting of Influenza, discharged on Tamiflu, 40 mg prednisone taper, Doxycycline, presenting for inadequately improved symptoms following last discharge and worsening SOB, Cough as of today. SOB, cough : likely secondary to COPD exacerbation -previously discharged for COPD 3 days ago on 40 mg Prednisone taper x 7days , Doxycycline, Tamiflu ( complete) -CXR unchanged from previous admission -Pneumonia unlikely given limites change in CXR, lack of fever, unremarkable CBC -Start Solumedrol 40 q 6 -Duonebs -Continue Spiriva, -Chest physiotherapy -Mucinex, Tessalon -Complete previously prescribed course of Doxycycline ( Day 6/7) HTN - Restart Home Coreg ESRD - Dialysis scheduled MWF - Consult Nephrology for recommendations DM - Hyperglycemic, likely secondary to Steroids - glycemic consult DVT -SCD Code status: Full Resuscitation Disposition: Admit to Med/Surg for observation Resident Physician Supervision Note: Pt evaluated independently. I discussed the case with the resident and agree with the findings and plan as documented in the note. Any exceptions or clarifications are listed here: 67 y/o F CHF , HTN , ESRD, COPD - had been recently hospitalized with influ and COPD exacerbation - clinically worsened after DC OE AAO x 3 S1,2 R Crackles in L base NT, ND No CCE P: Nebs, steroids 02 - pt is completing PNM and influ treatment - may need pulmonary input if she does not improce ESRD - Nephrology consulted for dialysis Cont Coreg Documented By: Jean Carlos Velazquez Level of Care Med/Surg VTE Prophylaxis VTE Risk Assessment Done? Y/N: Yes Risk Level: High Given or contraindicated: SCD's Note Total Time: Critical Care 30 - 74 minutes Resident Tracking Resident Involvement: Resident Care Provided Care Provided: Adult Hospital Medicine
[2017-10-04] MEDS ORDERED: INSULIN GLARGINE SOLOSTAR 100 UNITS/ML 3 ML PEN SC STA (22:55)
[2017-10-04] MEDS ORDERED: GLUCAGON FOR INJ 1 MG VIAL SQ PRN (23:00)
[2017-10-04] MEDS ORDERED: DEXTROSE 50% 50 ML SYR IV PRN (23:00)
[2017-10-04] MEDS ORDERED: GLUCOSE 10 TABS/TUBE PO PRN (23:00)
[2017-10-04] MEDS ORDERED: GLUCOSE 40% GEL 15 GM TUBE PO PRN (23:00)
[2017-10-04] MEDS ORDERED: SODIUM CHLORIDE 0.9% 1000ML 1,000 ML IV SCH (23:15)
[2017-10-05] VITALS (20 sets, daily range): BP systolic 127–160; BP diastolic 63–77; PULSE 67–83; TEMP 36.5–36.6; O2SAT 97–98; Ht 157.5 cm; Wt 87.0 kg
--- NOTE | 2017-10-05 00:11 | Pharmacy Progress Note ---
Glycemic Control Intl Consult Date of Service Oct 04, 2017. Scope Glycemic Pharmacist consulted by Dr Montes on 10/04/17 for glycemic control and to write orders per [facility] inpatient glycemic control protocol Objective Weight (Kilograms): 81.600 Accuchecks BSG (last 24hrs): Test 10/04/17 17:35 Random Glucose 311 mg/dl (70-99) Laboratory Data (last 24hrs) Test 10/04/17 17:35 Anion Gap 7.0 mmol/L BUN/Creatinine Ratio 22.9 Blood Urea Nitrogen 73 mg/dl Creatinine 3.20 mg/dl Potassium Level 4.6 mmol/L Sodium Level 135 mmol/L White Blood Count 11.39 K/uL Red Blood Count 3.89 M/uL Hemoglobin 12.5 g/dL Hematocrit 38.1 % Mean Corpuscular Volume 97.9 fL Mean Corpuscular Hemoglobin 32.1 pg Mean Corpuscular Hemoglobin Concent 32.8 g/dl Platelet Count 213 K/uL Mean Platelet Volume 9.3 fL Neutrophils (%) (Auto) 90.9 % Lymphocytes (%) (Auto) 4.2 % Monocytes (%) (Auto) 2.8 % Eosinophils (%) (Auto) 0.1 % Basophils (%) (Auto) 0.2 % Neutrophils # (Auto) 10.35 K/uL Lymphocytes # (Auto) 0.48 K/uL Monocytes # (Auto) 0.32 K/uL Eosinophils # (Auto) 0.01 K/uL Basophils # (Auto) 0.02 K/uL HbA1c None ordered due to pt being on HD -M/W/F Recent Pertinent Medications Outpatient Anti-diabetic Regimen: * Lantus 13u BID * Novolog 10u TIDM + SSI Risk Factors for Insulin Resistance: * Steroids Assessment & Plan ASSESSMENT: * Ms. Santiago is a 67yo F known to the pharmacy glycemic service via previous admissions. She typically requires 60u of insulin/D while admitted. However, at this juncture she is ordered high dose IV solumedrol 40mg q6 for COPD exacerbation. I surmise she will require more insulin during this stay. I have chosen wt/stress of 3 for her correctional/prandial insulin. I have spoken with the admitting RN, they have confirmed that Ms. Santiago has not taken any insulin today (both lantus and prandial/correctional). Ergo, will double up on the outpatient lantus dose to cover her metabolically. PLAN FOR INPATIENT GLYCEMIC CONTROL: * Holding outpatient oral diabetes medications * Basal insulin with LANTUS 30u x1 NOW, STA * Correctional Insulin with NOVOLOG per scale ACHS * Goal Range: Low 120 mg/dL - High 160 mg/dL * Correction Factor: 20 mg/dL/unit * Nutritional / Prandial insulin per carb ratio of 1 unit per 7 grams CHO consumed * Please note that the plan above was derived based on current level of insulin resistance and hospital stress. These recommendations are appropriate for inpatient admission only. Plan of care upon discharge will need to be reassessed to avoid potential outpatient hypo/hyperglycemia. Thank you.
[2017-10-05] MEDS: METHYLPREDNISOLONE IV 40 MG in SYRINGE 0 ML IV SCH ×4 (00:24→18:00)
[2017-10-05] MEDS: INSULIN ASPART 100 UNITS/ML 3 ML PEN SC SCH ×5 (00:26→18:48)
[2017-10-05] MEDS: BENZONATATE 100MG CAP PO PRN ×3 (04:40→18:55)
[2017-10-05] MEDS ORDERED: COUGH DROP (SUGAR FREE) LOZ 24 LOZ/1 BOX LOZ PRN (05:00)
[2017-10-05] MEDS: ALBUT/IPRATROP 3MG/0.5MG NEB 3 ML VIAL INH SCH ×4 (05:10→16:00)
[2017-10-05 07:30] LABS: BASO % 0.1 %; BASO ABS # 0.01 K/uL (0-0.2); HEMATOCRIT 36.8 % (37-47); HEMOGLOBIN 11.8 g/dL (12.0-16.0); IG# 0.14 K/uL (0.00-0.02); LYMPH % 4.9 %; LYMPH ABS # 0.41 K/uL (1.2-3.4); MEAN CELL VOLUME 98.7 fL (80-100); MEAN CORPUSCULAR HEMOGLOBIN 31.6 pg (25-34); MEAN CORPUSCULAR HGB CONC 32.1 g/dl (32-36); MEAN PLATELET VOLUME 9.7 fL (7.4-10.4); MONO % 1.9 %; MONO ABS # 0.16 K/uL (0.11-0.59); NEUT % 91.4 %; NEUT ABS # 7.65 K/uL (1.4-6.5); PLATELET COUNT 181 K/uL (130-400); RED CELL DISTRIBUTION WIDTH CV 16.2 % (11.5-14.5); RED CELL DISTRIBUTION WIDTH SD 57.2 fL (36.4-46.3); WHITE BLOOD COUNT 8.37 K/uL (4.8-10.8)
[2017-10-05 07:46] LABS: CALCIUM 8.3 mg/dl (8.5-10.1); CREATININE 3.33 mg/dl (0.60-1.20); POTASSIUM 4.6 mmol/L (3.5-5.1)
[2017-10-05] MEDS ORDERED: DOXYCYCLINE HYCLATE 100 MG CAP PO SCH (08:00)
[2017-10-05] MEDS ORDERED: CALCIUM ACETATE 667MG GELCAP PO SCH (08:00)
[2017-10-05] MEDS: DULERA~ORDER AWAITING ACTION SCH ×3 (08:00→16:00)
[2017-10-05] MEDS ORDERED: CARVEDILOL 25 MG TAB PO SCH (08:00)
[2017-10-05] MEDS ORDERED: TIOTROPIUM BROMIDE 5 PUFF/90 MCG INH INH SCH (08:00)
[2017-10-05] MEDS ORDERED: HEPARIN SOD (PORCINE) 1000 UNIT/ML 10 ML VIAL IV SCH (08:15)
[2017-10-05] MEDS ORDERED: INSULIN GLARGINE SOLOSTAR 100 UNITS/ML 3 ML PEN SC SCH (09:00)
[2017-10-05] MEDS ORDERED: GUAIFENESIN 600 MG TABCR PO SCH (09:00)
[2017-10-05] MEDS: ALUMINUM/MAGNESIUM/SIMETH (MAALOX MAX) 30 ML UDC PO PRN ×2 (09:44→13:09)
--- NOTE | 2017-10-05 10:37 | Pharmacy Progress Note ---
Pharmacy Glycemic Short Note 2 Date of Service Oct 05, 2017. OUTPATIENT ANTIDIABETIC REGIMEN: * Lantus 13u BID per patient, Lantus recently increased to 15 units BID * Novolog 10u TIDM + SSI ASSESSMENT: 10/05/17 * Patient was admitted overnight and given full dose of Lantus (since she did not receive any yesterday) as well as correctional overnight * Her BSG is MUCH improved today but will need to continue with aggressive insulin coverage due to the high dose steroids * From her most recent admission, she required Lantus 20 units BID as well as Novolog with CF 20, CR 5. Will adjust to this regimen and follow daily to make changes. PLAN FOR INPATIENT GLYCEMIC CONTROL: * Basal insulin * Lantus 20 units SQ BID * Bolus insulin * NovoLog per scale ACHS or Q6hrs while NPO, remove overnight coverage since BSGs improved * TIGHTEN Goal Range: Low 120 mg/dL - High 150 mg/dL * TIGHTEN Correction Factor: 20 mg/dL/unit * TIGHTEN Nutritional / Prandial insulin per carb ratio of 1 unit per 5 grams CHO consumed PLAN FOR DISCHARGE: * Difficult to assess A1c as it is unreliable in ESRD * Will need to confirm if her Lantus was recently increased and update this on her med list if that is correct
--- NOTE | 2017-10-05 10:54 | Nephrology Consultation ---
Nephrology Consultation Date & Providers Date of Consultation: Oct 05, 2017. Primary Care Provider: Karla Todd M.D. Referring Provider: Reason for Consultation ESRD History of Present Illness Mrs. Santiago was seen and examined in her hospital room this evening. Medical records in the hospital EMR were reviewed and are summarized as follows: Mrs. Santiago has ESRD due to diabetic nephropathy. She has been on HD since 07/02 and dialyzes NMWF at [facility] (4 hr, 2K 2Ca, F-180NR, Qb 400 Qd A1.5, EDW 83.5 kg). Her medical history is significant for COPD, DM, HTN, ASCVD s/p NSTEMI, anemia, COPD, STEPHEN, osteomyelitis s/p amputation of 3rd right toe, hypercholesterolemia, BMI > 35. In 05/03 Mrs. Santiago fractured her right ankle and required casting. Unfortunately she developed a pressure ulcer on her R 5th toe related to the cast. This progressed to osteomyelitis. Mrs. Santiago was evaluated by Orthopedic surgery. They recommended amputation of the R 5th toe. She completed a 6 week course of Invanz therapy 06/29/17. 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 She recovered well. Gemma was unfortunately recently admitted Sep 28- for COPD exacerbation in setting of influenza. She was treated with a steroid taper (40 mg taper x 7 days , doxycycline x 7 days, Tamiflu x 5 days). Unfortunately, symptoms have not improved. Currently reports persistent SOB, CORREA and cough. She increased her Oxygen to 3L today. No chest pain or palpitations, fever, chills, calf pain or swelling. Past Medical/Surgical History Medical: ESRD on HD MWF COPD DMII HTN ASCVD s/p NSTEMI ICM w/ LVEF 35% and moderate MR Anemia STEPHEN Osteomyelitis s/p amputation of 3rd right toe Hypercholesterolemia BMI > 35 Surgical: Left upper arm AV fistula created 10/10/[address] Cobb Third right toe amputation due to osteomyelitis Allergies Coded Allergies: Hydralazine (Verified Allergy, Intermediate, rash, 10/04/17) Isosorbide Nitrate (Verified Allergy, Unknown, ITCHING, 10/04/17) EZE Inhibitors (Verified Adverse Reaction, Unknown, DUE TO CKD, 10/04/17) Inpatient Medications Current Inpatient Medications Medications (Trade) Dose Ordered Sig/Tu Route Start Time Stop Time Status Last Admin Dose Admin Acetaminophen (Tylenol Tab) 650 mg Q4H PRN PO 10/04/17 21:15 11/03/17 21:14 Al Hydrox/Mg Hydrox/Simethicone (Maalox Max Susp) 15 ml Q4H PRN PO 10/04/17 21:15 11/03/17 21:14 10/05/17 09:44 15 ML Magnesium Hydroxide (Milk Of Magnesia Susp) 30 ml Q6H PRN PO 10/04/17 21:15 11/03/17 21:14 Polyethylene (Miralax Powder Packet) 17 gm DAILY PRN PO 10/04/17 21:15 11/03/17 21:14 Ondansetron HCl (Zofran Inj) 4 mg Q6H PRN IV 10/04/17 21:15 11/03/17 21:14 Methylprednisolone Sodium Succinate 40 mg/Syringe 0.64 ml @ 1.5 mls/min Q6 IV 10/05/17 00:00 11/04/17 00:00 10/05/17 06:04 1.5 MLS/MIN Guaifenesin (Mucinex Contr Rel Tab) 600 mg Q12 PO 10/05/17 09:00 11/04/17 08:59 10/05/17 09:43 600 MG Miscellaneous (Iv Fluids Completed) 1 ea PRN PRN N/A 10/04/17 21:30 10/04/18 21:29 Miscellaneous Information (Consult Glycemic Management Pharmacy) 1 ea UD PRN N/A 10/04/17 22:15 11/03/17 22:14 Benzonatate (Tessalon Perles Cap) 100 mg TID PRN PO 10/04/17 22:00 11/03/17 21:59 10/05/17 10:33 100 MG Calcium Acetate (Phoslo Cap) 667 mg BID PO 10/05/17 08:00 11/04/17 08:59 10/05/17 08:15 667 MG Carvedilol (Coreg Tab) 25 mg BID PO 10/05/17 08:00 11/04/17 08:59 Tiotropium Clarion (Spiriva Handihaler Inhaler) 1 puff DAILY INH 10/05/17 08:00 11/04/17 08:59 10/05/17 08:16 1 PUFF Miscellaneous Information (Order Awaiting Action) 1 ea QS N/A 10/04/17 22:15 11/03/17 22:14 Doxycycline Hyclate (Vibramycin Cap) 100 mg BID PO 10/05/17 08:00 10/05/17 20:01 10/05/17 09:43 100 MG Insulin Aspart (novoLOG ASPART) SLIDING SCALE ACHS SC 10/05/17 06:30 11/04/17 06:29 10/05/17 08:23 10 UNITS Glucose (Glucose 40% Gel) 15-30 GRAMS 15 GRAMS... UD PRN PO 10/04/17 23:00 11/03/17 22:59 Glucose (Glucose Chew Tab) 4-8 Tablets 4 Tabl... UD PRN PO 10/04/17 23:00 11/03/17 22:59 Dextrose (Dextrose 50% 50ML Syringe) 25-50ML OF 50% DW IV FOR... UD PRN IV 10/04/17 23:00 11/03/17 22:59 Glucagon (Glucagon Inj) 1 mg UD PRN SQ 10/04/17 23:00 11/03/17 22:59 Menthol (Nice Keila) 1 keila PRN PRN KEILA 10/05/17 05:00 11/04/17 04:59 10/05/17 05:11 1 KEILA Albuterol/ Ipratropium (Duoneb) 3 ml QIDR INH 10/05/17 08:00 11/04/17 07:59 10/05/17 07:23 3 ML Insulin Glargine (Lantus Solostar Pen) 20 units BID SC 10/05/17 09:00 11/04/17 08:59 10/05/17 08:24 20 UNITS Heparin Sodium (Porcine) (Heparin Iv Bolus) 2,000 unit TODAY@0815 IV 10/05/17 08:15 10/05/17 18:00 Family History FH: HTN (hypertension) Social History Smoking Status: Never Smoker Drug Use: none Marital Status: Housing Status: lives with family Occupation: retired Review of Systems A complete review of systems was performed. Pertinent positives are noted above. All other systems are negative. Physical Exam Date Time Temp Pulse Resp B/P (MAP) Pulse Ox O2 Delivery O2 Flow Rate FiO2 10/05/17 08:00 Nasal Cannula 3.0 10/05/17 07:23 71 20 98 Nasal Cannula 3.0 10/05/17 07:07 36.5 67 16 148/68 (94) 98 3.0 10/05/17 05:10 78 20 97 Nasal Cannula 3.0 10/05/17 00:45 Nasal Cannula 3.0 10/04/17 22:00 36.8 83 20 144/78 91 Nasal Cannula 3.0 10/04/17 21:51 76 19 93 10/04/17 21:36 75 25 94 Nasal Cannula 3.0 10/04/17 21:31 154/67 10/04/17 21:21 77 29 100 10/04/17 21:10 99 Nebulizer 8.0 10/04/17 21:06 77 18 96 10/04/17 21:01 164/76 10/04/17 20:55 79 20 96 Nasal Cannula 3.0 10/04/17 20:35 77 10/04/17 20:31 152/63 18 20:25 77 20 95 10/04/17 20:10 76 19 95 18 20:01 149/63 18 19:55 82 27 96 10/04/17 19:40 78 23 95 10/04/17 19:35 77 20 95 10/04/17 19:31 152/65 18 19:20 80 29 96 18 19:05 79 28 95 10/04/17 19:00 79 22 135/95 95 Nasal Cannula 3.0 10/04/17 18:55 84 23 10/04/17 17:28 36.6 90 18 167/87 93 Nasal Cannula 3.0 10/04/17 17:26 85 18 17:21 93 Nasal Cannula 3.0 General Appearance: WD/WN, no apparent distress Head: normocephalic, atraumatic Eyes: normal inspection, sclerae normal ENT: normal ENT inspection, pharynx normal Neck: supple, no JVD Respiratory/Chest: no respiratory distress, no accessory muscle use, + wheezing Cardiovascular: regular rate, rhythm, no murmur Abdomen/GI: non tender, soft Back: no CVA tenderness Extremities/Musculoskelatal: normal inspection, no pedal edema Neurologic/Psych: alert, normal mood/affect Skin: normal color Laboratory Results Last 24 Hours Test 10/04/17 17:35 10/04/17 18:05 10/04/17 20:40 10/05/17 00:20 White Blood Count 11.39 K/uL Red Blood Count 3.89 M/uL Hemoglobin 12.5 g/dL Hematocrit 38.1 % Mean Corpuscular Volume 97.9 fL Mean Corpuscular Hemoglobin 32.1 pg Mean Corpuscular Hemoglobin Concent 32.8 g/dl Platelet Count 213 K/uL Mean Platelet Volume 9.3 fL Neutrophils (%) (Auto) 90.9 % Lymphocytes (%) (Auto) 4.2 % Monocytes (%) (Auto) 2.8 % Eosinophils (%) (Auto) 0.1 % Basophils (%) (Auto) 0.2 % Neutrophils # (Auto) 10.35 K/uL Lymphocytes # (Auto) 0.48 K/uL Monocytes # (Auto) 0.32 K/uL Eosinophils # (Auto) 0.01 K/uL Basophils # (Auto) 0.02 K/uL RDW Standard Deviation 56.6 fL RDW Coefficient of Variation 16.1 % Immature Granulocyte % (Auto) 1.8 % Immature Granulocyte # (Auto) 0.21 K/uL Prothrombin Time 11.1 SECONDS Prothromb Time International Ratio 1.1 Sodium Level 135 mmol/L Potassium Level 4.6 mmol/L Chloride Level 96 mmol/L Carbon Dioxide Level 32 mmol/L Anion Gap 7.0 mmol/L Blood Urea Nitrogen 73 mg/dl Creatinine 3.20 mg/dl Est Creatinine Clear Calc Drug Dose 16.4 ml/min Estimated GFR () 16.3 Estimated GFR (Non- 14.1 BUN/Creatinine Ratio 22.9 Random Glucose 311 mg/dl Calcium Level 8.1 mg/dl Phosphorus Level 3.8 mg/dl Magnesium Level 2.1 mg/dl Total Bilirubin 0.5 mg/dl Aspartate Amino Transf (AST/SGOT) 20 U/L Alanine Aminotransferase (ALT/SGPT) 27 U/L Alkaline Phosphatase 118 U/L Total Protein 7.0 gm/dl Albumin 3.0 gm/dl Globulin 4.0 gm/dl Albumin/Globulin Ratio 0.8 Beta-Hydroxybutyric Acid 1.42 mg/dL Bedside Lactic Acid Venous 1.03 mmol/L Urine Color YELLOW Urine Appearance CLOUDY Urine pH 5.0 Urine Specific Bruno 1.016 Urine Protein 2+ Urine Glucose (UA) 2+ Urine Ketones NEG Urine Occult Blood NEG Urine Nitrite NEG Urine Bilirubin NEG Urine Urobilinogen NEG Urine Leukocyte Esterase TRACE Urine WBC (Auto) 1-5 /hpf Urine RBC (Auto) 0-4 /hpf Urine Hyaline Casts (Auto) 1-5 /lpf Urine Epithelial Cells (Auto) >30 /lpf Urine Bacteria (Auto) NEG Urine Yeast (Auto) BUDDING Bedside Glucose 309 mg/dl Test 10/05/17 03:52 10/05/17 06:50 10/05/17 07:56 Bedside Glucose 171 mg/dl 128 mg/dl White Blood Count 8.37 K/uL Red Blood Count 3.73 M/uL Hemoglobin 11.8 g/dL Hematocrit 36.8 % Mean Corpuscular Volume 98.7 fL Mean Corpuscular Hemoglobin 31.6 pg Mean Corpuscular Hemoglobin Concent 32.1 g/dl Platelet Count 181 K/uL Mean Platelet Volume 9.7 fL Neutrophils (%) (Auto) 91.4 % Lymphocytes (%) (Auto) 4.9 % Monocytes (%) (Auto) 1.9 % Eosinophils (%) (Auto) 0.0 % Basophils (%) (Auto) 0.1 % Neutrophils # (Auto) 7.65 K/uL Lymphocytes # (Auto) 0.41 K/uL Monocytes # (Auto) 0.16 K/uL Eosinophils # (Auto) 0.00 K/uL Basophils # (Auto) 0.01 K/uL RDW Standard Deviation 57.2 fL RDW Coefficient of Variation 16.2 % Immature Granulocyte % (Auto) 1.7 % Immature Granulocyte # (Auto) 0.14 K/uL Sodium Level 135 mmol/L Potassium Level 4.6 mmol/L Chloride Level 99 mmol/L Carbon Dioxide Level 28 mmol/L Anion Gap 8.0 mmol/L Blood Urea Nitrogen 85 mg/dl Creatinine 3.33 mg/dl Est Creatinine Clear Calc Drug Dose 16.4 ml/min Estimated GFR () 15.5 Estimated GFR (Non- 13.4 BUN/Creatinine Ratio 25.4 Random Glucose 134 mg/dl Calcium Level 8.3 mg/dl Impression (1) ESRD (end stage renal disease) on dialysis (2) PNEUMONIA, ORGANISM NOS (3) Dyspnea (4) COPD exacerbation (5) Dyspnea (6) Hypertension Recommendations END STAGE RENAL DISEASE: -- HD today per MWF schedule. Orders have been entered into EMR and discussed with HD nurse.' -- UF goal 3 kg to challenge EDW -- Protect L arm AVF -- Heplock IVF -- Renal diet HYPERTENSION: -- Blood pressure is well controlled. Continue Carvedilol ANEMIA: -- Stable. Appropriate. on VITALY as outpatient Dyspnea: -- Supportive care with bronchodilators and steroids -- CXR reviewed -- Consider CT chest if not responding to therapy
[2017-10-05] MEDS ORDERED: NURSING VERBAL MED ORDER ONE (13:15)
[2017-10-05] MEDS ORDERED: PRED10TA PO (13:32)
[2017-10-05] MEDS ORDERED: CALCIUM CARBONATE 500 MG CHEWABLE PO PRN (13:45)
[2017-10-05] MEDS ORDERED: CALCIUM CARBONATE 500 MG CHEWABLE PO ONE (13:45)
--- NOTE | 2017-10-05 13:50 | Discharge Instructions ---
Discharge Instructions Date of Service Oct 05, 2017. Admission Reason for Admission: Copd Exacerbation Discharge Discharge Diagnosis / Problem: COPD exacerbation Discharge Goals Goal(s): Improve function, Improve disease control, Therapeutic intervention Activity Recommendations Activity Limitations: per Instructions/Follow-up section Lifting Limitations: gradually increase as tolerated Shower/Bathe: no limitations . Instructions / Follow-Up Instructions / Follow-Up You were seen in the hospital for continued shortness of breath and fatigue after your previous admission for Flu with COPD exacerbation. After admission to the hospital we continued to treat you with antibiotics in addition to steroids, oxygen, and inhalers. Our workup found that there were no concerns for pneumonias or worsening infections and we are continuing to treat you as a COPD exacerbation from the flu. At this time we feel that you are stable to leave the hospital on a new course of steroids. Medications: - Prednisone 10mg Tab: Take 6 tablets every morning for the next 3 days, take 5 tablets every morning for the following 3 days, take 4 tablets every morning for the following 3 days, take 3 tablets every morning for the following 3 days , take 2 tablets every morning for the following 3 days, and take 1 tablet every morning for the following 3 days (Total 18 days of steroids) - Doxycycline: Take your last dose of antibiotics tonight - Resume all other home medications as prescribed - Oxygen: If your shortness of breath appears worse at home, you can increase your level of oxygen by 1 litre Follow Up: - Follow up with your primary care provider in the next week If you have any worsening fevers, chills, sweats, shortness of breath, cough, chest pain, headache, confusion, or any other acute complaints please contact your primary care provider or in the case of an emergency come to the emergency department for further evaluation Current Hospital Diet Patient's current hospital diet: Diabetes Type 2 Diet, Renal Diet Discharge Diet Recommended Diet: AHA Diet (Heart Healthy), Diabetes Type 2 Diet, Renal Diet Pending Studies Studies pending at discharge: no Laboratory Results Hemoglobin A1c Test 09/30/17 06:52 Range/Units Estimated Average Glucose 194 mg/dl Hemoglobin A1c 8.4 H 4.5-5.6 % Medical Emergencies . Who to Call and When: Medical Emergencies: If at any time you feel your situation is an emergency, please call 911 immediately. . Non-Emergent Contact Non-Emergency issues call your: Primary Care Provider . . "Provider Documentation" section prepared by Castro Encarnacion. . VTE Core Measure Inpt VTE Proph given/why not?: SCD's
[2017-10-05] MEDS: HEPARIN SOD (PORCINE) 1000 UNIT/ML 10 ML VIAL IV SCH ×3 (16:15→18:48)
--- NOTE | 2017-10-05 17:11 | Dialysis Progress Note ---
Hemodialysis Note Date of Service Oct 05, 2017. Chief Complaint ESRD Subjective Gemma was seen and evaluated during hemodialysis. She is tolerating the treatment well. Qb and BP are appropriate. Review of Systems A complete review of systems was performed. Pertinent positives are noted above. All other systems are negative. Vital Signs Last 8 Hrs Date Time Temp Pulse Resp B/P (MAP) Pulse Ox O2 Delivery O2 Flow Rate FiO2 10/05/17 14:49 36.6 82 160/67 (98) 10/05/17 14:38 36.5 71 18 97 Room Air 10/05/17 11:33 71 18 97 Nasal Cannula 3.0 10/05/17 10:59 98 I & O 24-Hour Column 10/06/17 08:00 Intake Total 275 ml Balance 275 ml Last Recorded Weight Weight (Kilograms): 90.000 Physical Exam General Appearance: WD/WN, no apparent distress Head: normocephalic, atraumatic Eyes: normal inspection, sclerae normal ENT: normal ENT inspection, pharynx normal Neck: supple, no JVD Respiratory/Chest: no respiratory distress, no accessory muscle use, + wheezing Cardiovascular: regular rate, rhythm, no gallop Neurologic/Psych: alert, normal mood/affect Social History Smoking Status: Never smoker Drug Use: none Marital Status: Housing Status: lives with family Occupation: retired Laboratory Results Past 24 Hours 10/04/17 17:35 Red Blood Count 3.89, Mean Corpuscular Volume 97.9, Mean Corpuscular Hemoglobin 32.1, Mean Corpuscular Hemoglobin Concent 32.8, Mean Platelet Volume 9.3, Neutrophils (%) (Auto) 90.9, Lymphocytes (%) (Auto) 4.2, Monocytes (%) (Auto) 2.8, Eosinophils (%) (Auto) 0.1, Basophils (%) (Auto) 0.2, Neutrophils # (Auto) 10.35, Lymphocytes # (Auto) 0.48, Monocytes # (Auto) 0.32, Eosinophils # (Auto) 0.01, Basophils # (Auto) 0.02 10/05/17 06:50 Red Blood Count 3.73, Mean Corpuscular Volume 98.7, Mean Corpuscular Hemoglobin 31.6, Mean Corpuscular Hemoglobin Concent 32.1, Mean Platelet Volume 9.7, Neutrophils (%) (Auto) 91.4, Lymphocytes (%) (Auto) 4.9, Monocytes (%) (Auto) 1.9, Eosinophils (%) (Auto) 0.0, Basophils (%) (Auto) 0.1, Neutrophils # (Auto) 7.65, Lymphocytes # (Auto) 0.41, Monocytes # (Auto) 0.16, Eosinophils # (Auto) 0.00, Basophils # (Auto) 0.01 10/04/17 17:35 10/05/17 06:50 Test 10/04/17 17:35 10/04/17 18:05 10/04/17 20:40 10/05/17 00:20 White Blood Count 11.39 K/uL (4.8-10.8) Red Blood Count 3.89 M/uL (4.2-5.4) Hemoglobin 12.5 g/dL (12.0-16.0) Hematocrit 38.1 % (37-47) Mean Corpuscular Volume 97.9 fL (80-100) Mean Corpuscular Hemoglobin 32.1 pg (25-34) Mean Corpuscular Hemoglobin Concent 32.8 g/dl (32-36) Platelet Count 213 K/uL (130-400) Mean Platelet Volume 9.3 fL (7.4-10.4) Neutrophils (%) (Auto) 90.9 % Lymphocytes (%) (Auto) 4.2 % Monocytes (%) (Auto) 2.8 % Eosinophils (%) (Auto) 0.1 % Basophils (%) (Auto) 0.2 % Neutrophils # (Auto) 10.35 K/uL (1.4-6.5) Lymphocytes # (Auto) 0.48 K/uL (1.2-3.4) Monocytes # (Auto) 0.32 K/uL (0.11-0.59) Eosinophils # (Auto) 0.01 K/uL (0-0.5) Basophils # (Auto) 0.02 K/uL (0-0.2) RDW Standard Deviation 56.6 fL (36.4-46.3) RDW Coefficient of Variation 16.1 % (11.5-14.5) Immature Granulocyte % (Auto) 1.8 % Immature Granulocyte # (Auto) 0.21 K/uL (0.00-0.02) Prothrombin Time 11.1 SECONDS (9.0-12.0) Prothromb Time International Ratio 1.1 (0.9-1.1) Anion Gap 7.0 mmol/L (3-11) Est Creatinine Clear Calc Drug Dose 16.4 ml/min Estimated GFR () 16.3 Estimated GFR (Non- 14.1 BUN/Creatinine Ratio 22.9 (10-20) Calcium Level 8.1 mg/dl (8.5-10.1) Phosphorus Level 3.8 mg/dl (2.5-4.9) Magnesium Level 2.1 mg/dl (1.8-2.4) Total Bilirubin 0.5 mg/dl (0.2-1) Aspartate Amino Transf (AST/SGOT) 20 U/L (15-37) Alanine Aminotransferase (ALT/SGPT) 27 U/L (12-78) Alkaline Phosphatase 118 U/L (45-117) Total Protein 7.0 gm/dl (6.4-8.2) Albumin 3.0 gm/dl (3.4-5.0) Globulin 4.0 gm/dl (2.5-4.0) Albumin/Globulin Ratio 0.8 (0.9-2) Beta-Hydroxybutyric Acid 1.42 mg/dL (0.2-2.81) Bedside Lactic Acid Venous 1.03 mmol/L (0.90-1.70) Urine Color YELLOW Urine Appearance CLOUDY (CLEAR) Urine pH 5.0 (4.5-7.5) Urine Specific [place] 1.016 (1.000-1.030) Urine Protein 2+ (NEG) Urine Glucose (UA) 2+ (NEG) Urine Ketones NEG (NEG) Urine Occult Blood NEG (NEG) Urine Nitrite NEG (NEG) Urine Bilirubin NEG (NEG) Urine Urobilinogen NEG (NEG) Urine Leukocyte Esterase TRACE (NEG) Urine WBC (Auto) 1-5 /hpf (0-5) Urine RBC (Auto) 0-4 /hpf (0-4) Urine Hyaline Casts (Auto) 1-5 /lpf (0-5) Urine Epithelial Cells (Auto) >30 /lpf (0-5) Urine Bacteria (Auto) NEG (NEG) Urine Yeast (Auto) BUDDING (NONE PRSENT) Bedside Glucose 309 mg/dl (70-90) Test 10/05/17 03:52 10/05/17 06:50 10/05/17 07:56 10/05/17 11:09 Bedside Glucose 171 mg/dl (70-90) 128 mg/dl (70-90) 194 mg/dl (70-90) White Blood Count 8.37 K/uL (4.8-10.8) Red Blood Count 3.73 M/uL (4.2-5.4) Hemoglobin 11.8 g/dL (12.0-16.0) Hematocrit 36.8 % (37-47) Mean Corpuscular Volume 98.7 fL (80-100) Mean Corpuscular Hemoglobin 31.6 pg (25-34) Mean Corpuscular Hemoglobin Concent 32.1 g/dl (32-36) Platelet Count 181 K/uL (130-400) Mean Platelet Volume 9.7 fL (7.4-10.4) Neutrophils (%) (Auto) 91.4 % Lymphocytes (%) (Auto) 4.9 % Monocytes (%) (Auto) 1.9 % Eosinophils (%) (Auto) 0.0 % Basophils (%) (Auto) 0.1 % Neutrophils # (Auto) 7.65 K/uL (1.4-6.5) Lymphocytes # (Auto) 0.41 K/uL (1.2-3.4) Monocytes # (Auto) 0.16 K/uL (0.11-0.59) Eosinophils # (Auto) 0.00 K/uL (0-0.5) Basophils # (Auto) 0.01 K/uL (0-0.2) RDW Standard Deviation 57.2 fL (36.4-46.3) RDW Coefficient of Variation 16.2 % (11.5-14.5) Immature Granulocyte % (Auto) 1.7 % Immature Granulocyte # (Auto) 0.14 K/uL (0.00-0.02) Anion Gap 8.0 mmol/L (3-11) Est Creatinine Clear Calc Drug Dose 16.4 ml/min Estimated GFR () 15.5 Estimated GFR (Non- 13.4 BUN/Creatinine Ratio 25.4 (10-20) Calcium Level 8.3 mg/dl (8.5-10.1) Test 10/05/17 15:51 Bedside Glucose 183 mg/dl (70-90) Allergies Coded Allergies: Hydralazine (Verified Allergy, Intermediate, rash, 10/04/17) Isosorbide Nitrate (Verified Allergy, Unknown, ITCHING, 10/04/17) EZE Inhibitors (Verified Adverse Reaction, Unknown, DUE TO CKD, 10/04/17) Medications Current Inpatient Medications Medications (Trade) Dose Ordered Sig/Tu Route Start Time Stop Time Status Last Admin Dose Admin Acetaminophen (Tylenol Tab) 650 mg Q4H PRN PO 10/04/17 21:15 11/03/17 21:14 Al Hydrox/Mg Hydrox/Simethicone (Maalox Max Susp) 15 ml Q4H PRN PO 10/04/17 21:15 11/03/17 21:14 10/05/17 13:09 15 ML Magnesium Hydroxide (Milk Of Magnesia Susp) 30 ml Q6H PRN PO 10/04/17 21:15 11/03/17 21:14 Polyethylene (Miralax Powder Packet) 17 gm DAILY PRN PO 10/04/17 21:15 11/03/17 21:14 Ondansetron HCl (Zofran Inj) 4 mg Q6H PRN IV 10/04/17 21:15 11/03/17 21:14 Methylprednisolone Sodium Succinate 40 mg/Syringe 0.64 ml @ 1.5 mls/min Q6 IV 10/05/17 00:00 11/04/17 00:00 10/05/17 12:28 1.5 MLS/MIN Guaifenesin (Mucinex Contr Rel Tab) 600 mg Q12 PO 10/05/17 09:00 11/04/17 08:59 10/05/17 09:43 600 MG Miscellaneous (Iv Fluids Completed) 1 ea PRN PRN N/A 10/04/17 21:30 10/04/18 21:29 Miscellaneous Information (Consult Glycemic Management Pharmacy) 1 ea UD PRN N/A 10/04/17 22:15 11/03/17 22:14 Benzonatate (Tessalon Perles Cap) 100 mg TID PRN PO 10/04/17 22:00 11/03/17 21:59 10/05/17 10:33 100 MG Calcium Acetate (Phoslo Cap) 667 mg BID PO 10/05/17 08:00 11/04/17 08:59 10/05/17 08:15 667 MG Carvedilol (Coreg Tab) 25 mg BID PO 10/05/17 08:00 11/04/17 08:59 Tiotropium [place] (Spiriva Handihaler Inhaler) 1 puff DAILY INH 10/05/17 08:00 11/04/17 08:59 10/05/17 08:16 1 PUFF Miscellaneous Information (Order Awaiting Action) 1 ea QS N/A 10/04/17 22:15 11/03/17 22:14 Doxycycline Hyclate (Vibramycin Cap) 100 mg BID PO 10/05/17 08:00 10/05/17 20:01 10/05/17 09:43 100 MG Insulin Aspart (novoLOG ASPART) SLIDING SCALE ACHS SC 10/05/17 06:30 11/04/17 06:29 10/05/17 12:27 15 UNITS Glucose (Glucose 40% Gel) 15-30 GRAMS 15 GRAMS... UD PRN PO 10/04/17 23:00 11/03/17 22:59 Glucose (Glucose Chew Tab) 4-8 Tablets 4 Tabl... UD PRN PO 10/04/17 23:00 11/03/17 22:59 Dextrose (Dextrose 50% 50ML Syringe) 25-50ML OF 50% DW IV FOR... UD PRN IV 10/04/17 23:00 11/03/17 22:59 Glucagon (Glucagon Inj) 1 mg UD PRN SQ 10/04/17 23:00 11/03/17 22:59 Menthol (Nice Keila) 1 keila PRN PRN KEILA 10/05/17 05:00 11/04/17 04:59 10/05/17 05:11 1 KEILA Albuterol/ Ipratropium (Duoneb) 3 ml QIDR INH 10/05/17 08:00 11/04/17 07:59 10/05/17 11:33 3 ML Insulin Glargine (Lantus Solostar Pen) 20 units BID SC 10/05/17 09:00 11/04/17 08:59 10/05/17 08:24 20 UNITS Heparin Sodium (Porcine) (Heparin Iv Bolus) 2,000 unit TODAY@0815 IV 10/05/17 08:15 10/05/17 18:00 Calcium Carbonate (Tums Chew Tab) 500 mg QID PRN PO 10/05/17 13:45 11/04/17 13:44 Impression (1) ESRD (end stage renal disease) on dialysis (2) PNEUMONIA, ORGANISM NOS (3) Dyspnea (4) COPD exacerbation (5) Dyspnea (6) Hypertension Recommendations Gemma has requested to shorter her treatment. Dyspnea has improved. She continues to have a cough. Activity tolerance is limited. No fevers or chills. She is looking forward to being discharged and feels comfortable with the plan of care.
--- NOTE | 2017-10-05 22:01 | Discharge Summary ---
Discharge Summary Date of Service Oct 05, 2017. Discharge Summary Admission Date: Oct 04, 2017 at 21:14 Discharge Date: Oct 05, 2017 Discharge Disposition: Home Principal Diagnosis: COPD Exacerbation Problems/Secondary Diagnoses: ESRD, Diabetes, HTN Immunizations: Have You Had Influenza Vaccine: Yes Influenza Vaccine Date: Jul 08, 2011 History of Tetanus Vaccine?: No History of Pneumococcal: No Pneumococcal Date: Mar 07, 2010 History of Hepatitis B Vaccine: No Medication Reconciliation New Medications: Prednisone Tab (Prednisone) 10 Mg Tab 10 MG PO DIRECTED for 18 Days, #63 TAB Take 6 tabs x 3 days, 5 tabs x 3 days, 4 tabs x 3 days, 3 tabs x 3 days, 2 tabs x 3 days, and 1 tab x 3 days Continued Medications: Benzonatate (Tessalon Perles) 100 Mg Cap 100 MG PO TID PRN for Cough, CAP Calcium Acetate (Phosphate Bin (Phoslo 667 Mg) 667 Mg Cap 667 MG PO BID Carvedilol (Coreg) 25 Mg Tab 25 MG PO BID, TAB Doxycycline Hyclate (Doxycycline Hyclate) 100 Mg Cap 100 MG PO BID, #8 CAP Take frist dose 2/15 evening Home O2 Therapy (Oxygen) Gas 2 LITERS NA PRN, BTL Insulin Aspart (Novolog Flexpen) 100 Units/Ml Inj 1 DOSE SC TID 10 units plus COVERAGE DIRECTED BY SLIDING SCALE Insulin Glargine (Lantus Solostar) 100 Unit/Ml Inj 13 UNITS SC AMPM, PEN Mometasone Furoate-Formoterol (Dulera 200/5 Mcg) 1 Aer Aer 2 PUFFS INH BID Prednisone Tab (Prednisone) 10 Mg Tab 10 MG PO UD for 7 Days, #16 TAB 40 mg x2 days, 20 mg x3 days, 10 mg x2 days Tiotropium Challenge (Spiriva Handihaler) 30 Puff/540 Mcg Aerp 1 CAP INH DAILY, INHALER Vitamin B Cmplx/Vitc/Folic Ac (Nephrocaps) Cap 1 CAP PO QAM, CAP Discharge Exam Review of Systems: Constitutional: + fatigue, No fever, No chills, No weight loss Respiratory: + cough, + shortness of breath, No sputum, No wheezing Cardiovascular: + edema, No chest pain, No palpitations Abdomen: No pain, No nausea, No vomiting, No diarrhea, No constipation Genitourinary - Female: No dysuria Physical Exam: General Appearance: WD/WN, + obese Eyes: normal inspection, sclerae normal Respiratory/Chest: chest non-tender, + decreased breath sounds Cardiovascular: regular rate, rhythm, no gallop, no murmur Abdomen / GI: normal bowel sounds, non tender, soft Extremities: no calf tenderness Neurologic/Psychiatric: alert, oriented x 3 Hospital Course 67 yo F with COPD on Home Oxygen 2 L , diastolic CHF, HTN, ESRD on Dialysis, recently discharged Sep 15 for COPD exacerbation in the setting of Influenza, discharged on Tamiflu, 40 mg prednisone taper, Doxycycline, presenting for inadequately improved symptoms following last discharge and worsening SOB, Cough as of today. SOB, cough : likely secondary to COPD exacerbation -Patient symptoms unchanged from time of discharge most likely due to prolonged recovery due to her previous poor respiratory function -Discharged patient home on Prednisone taper starting with 60mg and tapering by 10mg q3d -No further intervention at this time -Previously discharged for COPD 3 days ago on 40 mg Prednisone taper x 7days , Doxycycline, Tamiflu ( complete) -CXR unchanged from previous admission -Pneumonia unlikely given limites change in CXR, lack of fever, unremarkable CBC -Duonebs -Continue Spiriva, -Chest physiotherapy -Mucinex, Tessalon -Complete previously prescribed course of Doxycycline ( Day 6) HTN - Restart Home Coreg ESRD - Dialysis scheduled MWF --> Completed Thursday dialysis DM - Hyperglycemic, likely secondary to Steroids DVT -SCD Code status: Full Resuscitation Resident Physician Supervision Note: I interviewed and examined the patient. Discussed with Dr. Encarnacion and agree with findings and plan as documented in the note. Any exceptions or clarifications are listed here: None Documented By: Omer Trevizo feeling about the same. reviewed normal expectations for recovery from flu, and anticipated expectations for recovery given her baseline level of illness. she agrees that she's feeling ok to go home and we all are in agreement that staying in hospital longer would present more risk for nosocomial infection than benefit COPD / flu - safe for home - chronic respiratory failure - retreat w steroids longer taper, otherwise appears to have been appropriately treated at last discharge and mostly just was unaware to anticipate that recovery would be quite prolonged Total Time Spent: Greater than 30 minutes This includes examination of the patient, discharge planning, medication reconciliation, and communication with other providers. Discharge Instructions Please refer to the electronic Patient Visit Report (Discharge Instructions) for additional information. Additional Copies To Karla Todd M.D. Resident Tracking Resident Involvement: Resident Care Provided Care Provided: Adult [facility]
== END 2017-10-05 20:15 | disposition home or self-care (01) ==
LOC: EDBD 17:10 → C.EDB 17:11 → C.MS4W 21:14 → ENRESERV 21:26
PROVIDERS: ADMIT Internal Medicine; ATTEND Family Medicine
DX: J44.1 Chronic obstructive pulmonary disease with (acute) exacerbation (principal); N18.6 End stage renal disease; E11.65 Type 2 diabetes mellitus with hyperglycemia; I12.0 Hypertensive chronic kidney disease with stage 5 chronic kidney disease or end stage renal disease; R06.02 Shortness of breath; R05 Cough; E78.00 Pure hypercholesterolemia, unspecified; E66.9 Obesity, unspecified; G47.33 Obstructive sleep apnea (adult) (pediatric); N25.81 Secondary hyperparathyroidism of renal origin; Z99.2 Dependence on renal dialysis; Z87.81 Personal history of (healed) traumatic fracture; Z87.01 Personal history of pneumonia (recurrent); Z82.49 Family history of ischemic heart disease and other diseases of the circulatory system

== ENCOUNTER 2017-10-14 08:11 | Emergency (ER) | payer OTHER ==
[~2017-10-14 08:11] MED LIST changes: -BENZ100C7 PO; +BENZ100C84 PO; +CARV25TA2 PO; -CRG25 PO
[2017-10-14 08:13] VITALS: TEMP 36.9; Ht 157.5 cm
[2017-10-14] MEDS ORDERED: NYSS/ (08:18)
[2017-10-14] MEDS ORDERED: ALBUT/IPRATROP 3MG/0.5MG NEB 3 ML VIAL INH STA (08:31)
[2017-10-14 08:55] VITALS: O2SAT 96
[2017-10-14 09:24] LABS: EOS % 0.6 %; EOS ABS # 0.04 K/uL (0-0.5); HEMATOCRIT 36.6 % (37-47); HEMOGLOBIN 11.4 g/dL (12.0-16.0); IG# 0.03 K/uL (0.00-0.02); LYMPH % 7.5 %; LYMPH ABS # 0.49 K/uL (1.2-3.4); MEAN CELL VOLUME 101.4 fL (80-100); MEAN CORPUSCULAR HEMOGLOBIN 31.6 pg (25-34); MEAN CORPUSCULAR HGB CONC 31.1 g/dl (32-36); MEAN PLATELET VOLUME 9.7 fL (7.4-10.4); MONO % 3.8 %; MONO ABS # 0.25 K/uL (0.11-0.59); NEUT % 87.6 %; NEUT ABS # 5.75 K/uL (1.4-6.5); PLATELET COUNT 134 K/uL (130-400); RED CELL DISTRIBUTION WIDTH CV 17.7 % (11.5-14.5); WHITE BLOOD COUNT 6.56 K/uL (4.8-10.8)
[2017-10-14 09:34] LABS: PTT PATIENT 24.3 SECONDS (21.0-31.0)
--- NOTE | 2017-10-14 09:36 | DIAGNOSTIC IMAGING REPORT ---
(CHEST) THORAX WITHOUT CT DOSE: 690.78 mGy.cm CLINICAL HISTORY: 67 years-old Female with sob, hx kidney disease . Acute shortness of breath with history of left pleural effusion. TECHNIQUE: Multiaxial CT images of the chest were performed without contrast. A dose lowering technique was utilized adhering to the principles of ALARA. COMPARISON: Chest radiographs 10/04/2017, CT chest 10/08/2008. FINDINGS: No dominant thyroid nodule identified. There are several mildly prominent nonenlarged mediastinal lymph nodes including 8 mm right paratracheal lymph node. Moderate multichamber cardiac enlargement with coronary arterial disease. Trace pericardial effusion. No thoracic aortic aneurysm identified. There is dilation of the main pulmonary artery measuring 3.7 cm transversely suggesting pulmonary arterial hypertension. There is a trace left pleural effusion. No pneumothorax identified. There are multiple subsegmental bronchovascular distribution of groundglass and consolidative opacities within all lobes bilaterally with superimposed linear consolidative opacities of the lung bases. There is a focal round consolidation with central air bronchogram demonstrating lobular margins and peripheral groundglass attenuation, 2.5 x 2.2 cm within the lingula on image 105 series 4. The central airways are patent. There is mild bronchial wall thickening bilaterally suggesting associated bronchitis. No significant intralobular septal thickening to suggest pulmonary edema. No acute abnormality of the imaged upper abdomen. The soft tissues are unremarkable. Multilevel intervertebral disc space narrowing with endplate spurring and facet arthropathy. IMPRESSION: 1. Multiple subsegmental bronchovascular distribution of groundglass and consolidative opacities within a multisegmental and multilobar distribution bilaterally suggests bronchopneumonia. Additionally, there is a focal round consolidative opacity with ill-defined margins and central air bronchograms measuring 2.5 cm in diameter, likely also related to infectious or inflammatory cause however a follow-up CT after treatment is needed to document resolution and exclude neoplastic etiology. 2. Trace left pleural effusion. 3. Cardiomegaly with trace pericardial effusion. 4. Dilation of the main pulmonary artery suggests pulmonary arterial hypertension. Electronically signed by: Solo Roberts M.D. 10/14/2017 9:35 AM Dictated Date/Time: 10/14/2017 9:18 AM
[2017-10-14 09:44] LABS: ALBUMIN 2.7 gm/dl (3.4-5.0); ALT/SGPT 37 U/L (12-78); AST/SGOT 23 U/L (15-37); BLOOD UREA NITROGEN 68 mg/dl (7-18); CALCIUM 8.2 mg/dl (8.5-10.1); CARBON DIOXIDE 31 mmol/L (21-32); CREATININE 2.72 mg/dl (0.60-1.20); GLUCOSE 308 mg/dl (70-99); POTASSIUM 5.3 mmol/L (3.5-5.1); SODIUM 135 mmol/L (136-145)
[2017-10-14 09:48] LABS: ALKALINE PHOSPHATASE 106 U/L (45-117); TOTAL PROTEIN 6.6 gm/dl (6.4-8.2)
[2017-10-14 10:03] LABS: CKMB 4.8 ng/ml (0.5-3.6)
[2017-10-14] MEDS ORDERED: AMOX500T3 PO (10:52)
[2017-10-14] MEDS ORDERED: DOXY100C76 PO (10:52)
--- NOTE | 2017-10-14 10:52 | EMERGENCY ROOM VISIT NOTE ---
History Report prepared by Dennis: Lor Hernandez Under the Supervision of: Dr. Zac Dasilva D.O. First contact with patient: 08:20 Chief Complaint: SHORTNESS OF BREATH Stated Complaint: TROUBLE BREATHING Nursing Triage Summary: Pt arrived to triage in WC, c/o SOB x 1 month, "I had the flu and never got better and now I can't breath at all" CT of Chest ordered outpatient today 1500. Was to have Dialysis today but wanted to come to ER. Pt also c/o ear pain and sore throat. History of Present Illness The patient is a 67 year old female who presents to the Emergency Room with complaints of constant shortness of breath for the past month. The patient was sick with the flu about 3.5 weeks ago and states that she has not recovered. Her shortness of breath has persisted. She has inhalers, oxygen, and nebulizers at home to use PRN. The patient saw her PCP yesterday for these symptoms. Her PCP was concerned that she had fluid in her lungs. They scheduled a CT scan for 1500 today. The patient goes to dialysis M//. She was supposed to have dialysis today at 8am but did not go. The patient came to the ED for further evaluation of her symptoms. She reports a sore throat and bilateral ear pain. Source of History: patient Onset: 1 month ago Position: chest (respiratory) Quality: other (shortness of breath) Timing: constant Associated Symptoms: + sorethroat Review of Systems See HPI for pertinent positives & negatives. A total of 10 systems reviewed and were otherwise negative. 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 (9) Congestive heart failure (CHF) (10) Congestive heart failure (CHF) (11) Congestive heart failure with left ventricular systolic dysfunction (12) COPD (chronic obstructive pulmonary disease) (13) COPD exacerbation (14) DIAB MANJIT WO COMPL, TYPE II OR UNSPEC TYPE, NOT UNCNTRLD (15) Diabetes (16) Diabetic foot infection (17) Diabetic ulcer of right foot (18) Elevated troponin (19) ESRD (end stage renal disease) on dialysis (20) Hypercholesterolemia (21) Hyperkalemia, diminished renal excretion (22) Hypertension (23) HYPERTENSION NOS (24) Hypoxemia (25) Influenza A (26) Kidney disease (27) Metabolic acidosis with normal anion gap and failure of bicarbonate regeneration (28) Obesity (29) Obstructive sleep apnea (30) Osteomyelitis (31) Osteomyelitis of left foot (32) Peripheral neuropathy (33) PNEUMONIA, ORGANISM NOS (34) Proteinuria (35) Pulmonary edema (36) Secondary hyperparathyroidism of renal origin (37) SOB (shortness of breath) (38) Vitamin D deficiency, unspecified (39) Volume overload Family History FH: HTN (hypertension) Social History Smoking Status: Never Smoker Drug Use: none Marital Status: Housing Status: lives with family Occupation Status: retired Current/Historical Medications Scheduled Amoxicillin (Amoxil), 1 TAB PO QD Calcium Acetate (Phosphate Bin (Phoslo 667 Mg), 667 MG PO BID Carvedilol (Coreg), 25 MG PO BID Doxycycline Monohydrate (Monodox), 100 MG PO BID Home O2 Therapy (Oxygen), 2 LITERS NA PRN Insulin Aspart (Novolog Flexpen), 1 DOSE SC TID Insulin Glargine (Lantus Solostar), 13 UNITS SC AMPM Mometasone Furoate-Formoterol (Dulera 200/5 Mcg), 2 PUFFS INH BID Nystatin (Nystatin Suspension), 1 DOSE UD Prednisone (Prednisone), 10 MG PO UD Tiotropium [place] (Spiriva Handihaler), 1 CAP INH DAILY Vitamin B Cmplx/Vitc/Folic Ac (Nephrocaps), 1 CAP PO QAM Scheduled PRN Benzonatate (Tessalon Perles), 100 MG PO TID PRN for Cough Allergies Coded Allergies: Hydralazine (Verified Allergy, Intermediate, rash, 10/14/17) Isosorbide Nitrate (Verified Allergy, Unknown, ITCHING, 10/14/17) EZE Inhibitors (Verified Adverse Reaction, Unknown, DUE TO CKD, 10/14/17) Physical Exam Vital Signs Date Time Temp Pulse Resp B/P (MAP) Pulse Ox O2 Delivery O2 Flow Rate FiO2 10/14/17 10:13 92 16 159/72 97 Nasal Cannula 2.0 10/14/17 09:38 97 10/14/17 08:55 96 Nasal Cannula 2.0 10/14/17 08:13 96 Nasal Cannula 2.0 10/14/17 08:13 36.9 97 20 169/80 96 Nasal Cannula 2.0 Physical Exam CONSTITUTIONAL/VITAL SIGNS: Reviewed / noted above. GENERAL: Non-toxic in appearance. INTEGUMENTARY: Warm, dry, and [place]. HEAD: Normocephalic. EYES: without scleral icterus or trauma. ENT/OROPHARYNX: clear and moist. LYMPHADENOPATHY/NECK: Is supple without lymphadenopathy or meningismus. RESPIRATORY: Lungs clear and equal. CARDIOVASCULAR: Regular rate and rhythm. GI/ABDOMEN: Soft and nontender. No organomegaly or pulsatile mass. No rebound or guarding. Normal bowel sounds. EXTREMITIES: Warm and well perfused. BACK: No CVA tenderness. NEUROLOGICAL: Intact without focal deficits. PSYCHIATRIC: normal affect. MUSCULOSKELETAL: Normally developed with good muscle tone. Medical Decision & Procedures ER Provider Diagnostic Interpretation: Radiology results as stated below per my review and radiologist interpretation: (CHEST) THORAX WITHOUT CT DOSE: 690.78 mGy.cm CLINICAL HISTORY: 67 years-old Female with sob, hx kidney disease . Acute shortness of breath with history of left pleural effusion. TECHNIQUE: Multiaxial CT images of the chest were performed without contrast. A dose lowering technique was utilized adhering to the principles of ALARA. COMPARISON: Chest radiographs 10/04/2017, CT chest 10/08/2008. FINDINGS: No dominant thyroid nodule identified. There are several mildly prominent nonenlarged mediastinal lymph nodes including 8 mm right paratracheal lymph node. Moderate multichamber cardiac enlargement with coronary arterial disease. Trace pericardial effusion. No thoracic aortic aneurysm identified. There is dilation of the main pulmonary artery measuring 3.7 cm transversely suggesting pulmonary arterial hypertension. There is a trace left pleural effusion. No pneumothorax identified. There are multiple subsegmental bronchovascular distribution of groundglass and consolidative opacities within all lobes bilaterally with superimposed linear consolidative opacities of the lung bases. There is a focal round consolidation with central air bronchogram demonstrating lobular margins and peripheral groundglass attenuation, 2.5 x 2.2 cm within the lingula on image 105 series 4. The central airways are patent. There is mild bronchial wall thickening bilaterally suggesting associated bronchitis. No significant intralobular septal thickening to suggest pulmonary edema. No acute abnormality of the imaged upper abdomen. The soft tissues are unremarkable. Multilevel intervertebral disc space narrowing with endplate spurring and facet arthropathy. IMPRESSION: 1. Multiple subsegmental bronchovascular distribution of groundglass and consolidative opacities within a multisegmental and multilobar distribution bilaterally suggests bronchopneumonia. Additionally, there is a focal round consolidative opacity with ill-defined margins and central air bronchograms measuring 2.5 cm in diameter, likely also related to infectious or inflammatory cause however a follow-up CT after treatment is needed to document resolution and exclude neoplastic etiology. 2. Trace left pleural effusion. 3. Cardiomegaly with trace pericardial effusion. 4. Dilation of the main pulmonary artery suggests pulmonary arterial hypertension. Electronically signed by: Solo Roberts M.D. 10/14/2017 9:35 AM Dictated Date/Time: 10/14/2017 9:18 AM Laboratory Results 10/14/17 08:55 Red Blood Count 3.61, Mean Corpuscular Volume 101.4, Mean Corpuscular Hemoglobin 31.6, Mean Corpuscular Hemoglobin Concent 31.1, Mean Platelet Volume 9.7, Neutrophils (%) (Auto) 87.6, Lymphocytes (%) (Auto) 7.5, Monocytes (%) ( Auto) 3.8, Eosinophils (%) (Auto) 0.6, Basophils (%) (Auto) 0.0, Neutrophils # ( Auto) 5.75, Lymphocytes # (Auto) 0.49, Monocytes # (Auto) 0.25, Eosinophils # ( Auto) 0.04, Basophils # (Auto) 0.00 10/14/17 08:55 Test 10/14/17 08:55 White Blood Count 6.56 K/uL (4.8-10.8) Red Blood Count 3.61 M/uL (4.2-5.4) Hemoglobin 11.4 g/dL (12.0-16.0) Hematocrit 36.6 % (37-47) Mean Corpuscular Volume 101.4 fL (80-100) Mean Corpuscular Hemoglobin 31.6 pg (25-34) Mean Corpuscular Hemoglobin Concent 31.1 g/dl (32-36) Platelet Count 134 K/uL (130-400) Mean Platelet Volume 9.7 fL (7.4-10.4) Neutrophils (%) (Auto) 87.6 % Lymphocytes (%) (Auto) 7.5 % Monocytes (%) (Auto) 3.8 % Eosinophils (%) (Auto) 0.6 % Basophils (%) (Auto) 0.0 % Neutrophils # (Auto) 5.75 K/uL (1.4-6.5) Lymphocytes # (Auto) 0.49 K/uL (1.2-3.4) Monocytes # (Auto) 0.25 K/uL (0.11-0.59) Eosinophils # (Auto) 0.04 K/uL (0-0.5) Basophils # (Auto) 0.00 K/uL (0-0.2) RDW Standard Deviation 65.0 fL (36.4-46.3) RDW Coefficient of Variation 17.7 % (11.5-14.5) Immature Granulocyte % (Auto) 0.5 % Immature Granulocyte # (Auto) 0.03 K/uL (0.00-0.02) Prothrombin Time 10.3 SECONDS (9.0-12.0) Prothromb Time International Ratio 1.0 (0.9-1.1) Activated Partial Thromboplast Time 24.3 SECONDS (21.0-31.0) Partial Thromboplastin Ratio 0.9 Anion Gap 6.0 mmol/L (3-11) Estimated GFR () 19.9 Estimated GFR (Non- 17.1 BUN/Creatinine Ratio 25.1 (10-20) Calcium Level 8.2 mg/dl (8.5-10.1) Total Bilirubin 0.4 mg/dl (0.2-1) Aspartate Amino Transf (AST/SGOT) 23 U/L (15-37) Alanine Aminotransferase (ALT/SGPT) 37 U/L (12-78) Alkaline Phosphatase 106 U/L (45-117) Total Creatine Kinase 53 U/L (26-192) Creatine Kinase MB 4.8 ng/ml (0.5-3.6) Creatine Kinase MB Ratio 9.1 (0-3.0) Troponin I 0.420 ng/ml (0-0.045) Total Protein 6.6 gm/dl (6.4-8.2) Albumin 2.7 gm/dl (3.4-5.0) Globulin 3.9 gm/dl (2.5-4.0) Albumin/Globulin Ratio 0.7 (0.9-2) Beta-Hydroxybutyric Acid 1.11 mg/dL (0.2-2.81) Laboratory results as stated above per my review. Medications Administered Medications (Trade) Dose Ordered Sig/Tu Route Start Time Stop Time Status Last Admin Dose Admin Albuterol/ Ipratropium (Duoneb) 3 ml NOW STAT INH 10/14/17 08:31 10/14/17 08:34 DC 10/14/17 08:46 3 ML ECG Per My Interpretation Indication: SOB/dyspnea Rate (beats per minute): 95 Rhythm: normal sinus Findings: no ectopy, other (no ST elevations) ED Course 0821: Previous medical records were reviewed. The patient was evaluated in room A3. A complete history and physical examination was performed. 0831: DuoNeb 3 ml INH 1100: Vibramycin 100 mg PO 1101: I reassessed the patient at this time. She is feeling better and resting comfortably. I discussed the results and treatment plan with the patient. I answered all pertaining questions that she had. She expressed understanding and verbalized agreement. The patient will be discharged home. Medical Decision Differentials considered include acute myocardial infarction, acute coronary syndrome, myocarditis, pericarditis, pericardial effusions /tamponade, esophageal perforation, pulmonary embolism, pneumonia, pneumothorax, cardiomyopathy, congestive heart, anemia, and COPD/asthma exacerbation. This is a 67-year-old female who presents to the ED with a chief complaint of shortness of breath. She states that she has had trouble breathing for the past month. The patient reports that she was due for a CT scan of the chest today at 3:00. The patient also had dialysis this morning that she skipped because of her breathing. The patient's vital signs reveal some hypertension with a blood pressure from 169/80. Her heart rate was normal and her oxygen saturations were 92% on room air. The patient does have oxygen at home that she uses. The patient's physical exam revealed some scattered wheezes. She was given a DuoNeb treatment for this. The patient had a normal white blood cell count. Hemoglobin is 11.4. BUN 16 creatinine is 2.7. She is due for dialysis today. Her troponin is slightly elevated at 0.42. Chemistry panel was otherwise unremarkable. A CT scan of the chest reveals multilobar bronchopneumonia as well as a 2.5 cm ill-defined bronchogram. Follow-up CT scan was recommended after treatment. Reviewing the patient's charts, she has had troponin elevation the past that was felt to be related to her renal function. The patient's last cardiac catheterization revealed single-vessel disease that was nonobstructive according to Dr. Burgos's note from June 2016. The patient has not experienced any chest discomfort. Based on the patient's symptoms, and CT scan, she will be started on doxycycline and amoxicillin. She was felt to be stable for discharge and outpatient follow-up. Medication Reconcilliation Current Medication List: was personally reviewed by me Blood Pressure Screening Patient's blood pressure: Elevated blood pressure Blood pressure disposition: Referred to PCP Impression Primary Impression: Bronchopneumonia Scribe Attestation The scribe's documentation has been prepared under my direction and personally reviewed by me in its entirety. I confirm that the note above accurately reflects all work, treatment, procedures, and medical decision making performed by me. Departure Information Dispostion Home / Self-Care Prescriptions Amoxicillin (AMOXIL) 500 Mg Tab 1 TAB PO QD for 10 Days, #10 TAB Prov: Zac Dasilva D.O. 10/14/17 Doxycycline Monohydrate (Monodox) 100 Mg Cap 100 MG PO BID for 10 Days, #20 CAP Prov: Zac Dasilva D.O. 10/14/17 Referrals Karla Todd M.D. (PCP) Patient Instructions My [facility], Pneumonia Additional Instructions Doxycycline and amoxicillin as prescribed. Take the amoxicillin in the evenings on all days and after dialysis, not before. Follow-up with your dialysis Center after being discharged from here for dialysis. Follow-up with your doctors. Continue your inhalers.
[2017-10-14] MEDS ORDERED: DOXYCYCLINE HYCLATE 100 MG CAP PO ONE (11:00)
[2017-10-14 11:36] VITALS: BP 163/75; PULSE 82; O2SAT 96
--- NOTE | 2017-10-14 11:41 | Pharmacy Progress Note ---
ED Pharmacist Progress Note Date of Service: Oct 14, 2017. Rx's for Doxycycline and Amoxicillin called to [facility] [place] ([phone]) per patient's request. Rx's that were e-prescribed to [facility] pharmacy in [place] were cancelled.
== END 2017-10-14 11:40 | disposition home or self-care (01) ==
LOC: C.EDB 08:12 → C.EDA 11:40
DX: J18.0 Bronchopneumonia, unspecified organism (principal); Z99.2 Dependence on renal dialysis; N18.6 End stage renal disease; E11.22 Type 2 diabetes mellitus with diabetic chronic kidney disease; M86.60 Other chronic osteomyelitis, unspecified site; J44.9 Chronic obstructive pulmonary disease, unspecified; I50.9 Heart failure, unspecified; I13.2 Hypertensive heart and chronic kidney disease with heart failure and with stage 5 chronic kidney disease, or end stage renal disease; E78.00 Pure hypercholesterolemia, unspecified; E87.5 Hyperkalemia; E11.40 Type 2 diabetes mellitus with diabetic neuropathy, unspecified; N25.81 Secondary hyperparathyroidism of renal origin; E55.9 Vitamin D deficiency, unspecified; Z82.49 Family history of ischemic heart disease and other diseases of the circulatory system; Z79.4 Long term (current) use of insulin; Z88.8 Allergy status to other drugs, medicaments and biological substances

== ENCOUNTER → 2017-10-20 | Outpatient (CLI) | payer OTHER ==
[~2017-10-20] MED LIST changes: +AMOX500T3 PO; +DOXY100C76 PO; -DXY100 PO; +NYSS/
[2017-10-20 14:48] LABS: EOS % 1.4 %; EOS ABS # 0.08 K/uL (0-0.5); HEMATOCRIT 31.9 % (37-47); HEMOGLOBIN 10.4 g/dL (12.0-16.0); IG# 0.03 K/uL (0.00-0.02); LYMPH % 21.8 %; LYMPH ABS # 1.23 K/uL (1.2-3.4); MEAN CELL VOLUME 97.6 fL (80-100); MEAN CORPUSCULAR HEMOGLOBIN 31.8 pg (25-34); MEAN CORPUSCULAR HGB CONC 32.6 g/dl (32-36); MEAN PLATELET VOLUME 9.2 fL (7.4-10.4); MONO % 7.3 %; MONO ABS # 0.41 K/uL (0.11-0.59); PLATELET COUNT 176 K/uL (130-400); RED CELL DISTRIBUTION WIDTH CV 16.7 % (11.5-14.5); RED CELL DISTRIBUTION WIDTH SD 59.4 fL (36.4-46.3); WHITE BLOOD COUNT 5.65 K/uL (4.8-10.8)
[2017-10-20 15:07] LABS: BLOOD UREA NITROGEN 56 mg/dl (7-18); CALCIUM 7.8 mg/dl (8.5-10.1); CARBON DIOXIDE 31 mmol/L (21-32); CREATININE 2.41 mg/dl (0.60-1.20); GLUCOSE 185 mg/dl (70-99); POTASSIUM 4.2 mmol/L (3.5-5.1); SODIUM 134 mmol/L (136-145)
[2017-10-22 14:43] LABS: QUANTIF MITOGEN-NIL 9.94 IU/ML; QUANTIFERON NEGATIVE (NEGATIVE); QUANTIFERON NIL 0.05 IU/ML
== END | disposition home or self-care (01) ==
LOC: C.LAB1850 12:53
PROVIDERS: ATTEND Physician Assistant
DX: R05 Cough (principal)

== ENCOUNTER 2017-10-30 01:18 | Emergency (ER) | payer OTHER ==
[~2017-10-30] VITALS: Ht 157.5 cm; Wt 86.3 kg
[~2017-10-30 01:18] MED LIST changes: -DOXY100C76 PO
[2017-10-30 01:27] VITALS: TEMP 37.2; Ht 157.5 cm; Wt 86.3 kg
--- NOTE | 2017-10-30 01:57 | EMERGENCY ROOM VISIT NOTE ---
History Report prepared by Dennis: Nette Arriaga Under the Supervision of: Dr. Hellen Florian M.D. First contact with patient: 01:29 Chief Complaint: SHORTNESS OF BREATH Stated Complaint: SHORT OF BREATH History of Present Illness The patient is a 67 year old female who presents to the Emergency Room with complaints of shortness of breath beginning this morning. She reports that she went to bed around 2300 last night, was sleeping for about an hour, and then suddenly woke up because she was unable to breathe. The patient states that she used a nebulizer to try to alleviate her symptoms. She reports that she has had respiratory issues for the last 8-9 weeks, and states that she has been seen for her respiratory problems. The patient states that she uses inhalers and nebulizers at home. She denies having fevers, but does report having a cough and a sore throat. The patient states that she had the flu and now developed pneumonia. She also reports that she has COPD and that she is now on 2L of oxygen at home. Source of History: patient Onset: this morning Position: other (global) Quality: other (shortness of breath ) Associated Symptoms: + sorethroat, + cough, No fevers Review of Systems See HPI for pertinent positives & negatives. A total of 10 systems reviewed and were otherwise negative. 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 (9) Congestive heart failure (CHF) (10) Congestive heart failure (CHF) (11) Congestive heart failure with left ventricular systolic dysfunction (12) COPD (chronic obstructive pulmonary disease) (13) COPD exacerbation (14) DIAB MANJIT WO COMPL, TYPE II OR UNSPEC TYPE, NOT UNCNTRLD (15) Diabetes (16) Diabetic foot infection (17) Diabetic ulcer of right foot (18) Elevated troponin (19) ESRD (end stage renal disease) on dialysis (20) Hypercholesterolemia (21) Hyperkalemia, diminished renal excretion (22) Hypertension (23) HYPERTENSION NOS (24) Hypoxemia (25) Influenza A (26) Kidney disease (27) Metabolic acidosis with normal anion gap and failure of bicarbonate regeneration (28) Obesity (29) Obstructive sleep apnea (30) Osteomyelitis (31) Osteomyelitis of left foot (32) Peripheral neuropathy (33) PNEUMONIA, ORGANISM NOS (34) Proteinuria (35) Pulmonary edema (36) Secondary hyperparathyroidism of renal origin (37) SOB (shortness of breath) (38) Vitamin D deficiency, unspecified (39) Volume overload Family History FH: HTN (hypertension) Social History Smoking Status: Never Smoker Drug Use: none Marital Status: Housing Status: lives with family Occupation Status: retired Current/Historical Medications Scheduled Calcium Acetate (Phosphate Bin (Phoslo 667 Mg), 667 MG PO BID Carvedilol (Coreg), 25 MG PO BID Home O2 Therapy (Oxygen), 2 LITERS NA PRN Insulin Aspart (Novolog Flexpen), 1 DOSE SC TID Insulin Glargine (Lantus Solostar), 13 UNITS SC AMPM Mometasone Furoate-Formoterol (Dulera 200/5 Mcg), 2 PUFFS INH BID Tiotropium [place] (Spiriva Handihaler), 1 CAP INH DAILY Vitamin B Cmplx/Vitc/Folic Ac (Nephrocaps), 1 CAP PO QAM Scheduled PRN Benzonatate (Tessalon Perles), 100 MG PO TID PRN for Cough Hydrocodone W/ Homatropine (Hycodan 5/1.5MG 5 Ml), 5-10 ML PO Qhs PRN for Cough Allergies Coded Allergies: Hydralazine (Verified Allergy, Intermediate, rash, 10/30/17) Isosorbide Nitrate (Verified Allergy, Unknown, ITCHING, 10/30/17) EZE Inhibitors (Verified Adverse Reaction, Unknown, DUE TO CKD, 10/30/17) Physical Exam Vital Signs Date Time Temp Pulse Resp B/P (MAP) Pulse Ox O2 Delivery O2 Flow Rate FiO2 10/30/17 08:40 84 18 141/76 93 10/30/17 06:15 100 130/72 100 Nasal Cannula 2.0 10/30/17 05:50 96 10/30/17 04:30 97 20 149/72 96 Nasal Cannula 2.0 10/30/17 03:30 100 21 150/76 97 Room Air 10/30/17 02:30 107 20 137/88 100 Nebulizer 10/30/17 01:29 110 10/30/17 01:27 37.2 113 22 158/67 97 Nasal Cannula 2.0 10/30/17 01:27 97 Nasal Cannula Physical Exam Vital signs reviewed. General: Overall Cushingoid appearance, chronically-ill appearing female, in no significant distress. HEENT: No scleral icterus, PERRLA, neck supple. Atraumatic. Cardiovascular: Regular rate and rhythm, no extra sounds. Pulmonary: Dry cough with scattered wheezes bilaterally. Normal WOB, on nasal cannula oxygen. Abdomen: Soft, obese, nontender, nondistended, positive bowel sounds. Musculoskeletal: Atraumatic, no peripheral edema. Neurologic: Patient awake alert and oriented x 3, full strength in all 4 extremities. Cranial nerves 2 through 12 grossly intact. Skin: Warm, dry, no rash Medical Decision & Procedures ER Provider Diagnostic Interpretation: Radiology results as stated below per my review and radiologist interpretation: Chest X-Ray: Cardiomegaly. Blunting on the left diaphragm. No focal lung consolidation. No failure. No evidence of pneumonia. Laboratory Results 10/30/17 02:20 Red Blood Count 3.17, Mean Corpuscular Volume 97.5, Mean Corpuscular Hemoglobin 31.2, Mean Corpuscular Hemoglobin Concent 32.0, Mean Platelet Volume 9.4, Neutrophils (%) (Auto) 67.4, Lymphocytes (%) (Auto) 18.3, Monocytes (%) (Auto) 11.9, Eosinophils (%) (Auto) 2.0, Basophils (%) (Auto) 0.2, Neutrophils # (Auto ) 2.73, Lymphocytes # (Auto) 0.74, Monocytes # (Auto) 0.48, Eosinophils # (Auto ) 0.08, Basophils # (Auto) 0.01 10/30/17 02:20 Test 10/30/17 02:20 White Blood Count 4.05 K/uL (4.8-10.8) Red Blood Count 3.17 M/uL (4.2-5.4) Hemoglobin 9.9 g/dL (12.0-16.0) Hematocrit 30.9 % (37-47) Mean Corpuscular Volume 97.5 fL (80-100) Mean Corpuscular Hemoglobin 31.2 pg (25-34) Mean Corpuscular Hemoglobin Concent 32.0 g/dl (32-36) Platelet Count 129 K/uL (130-400) Mean Platelet Volume 9.4 fL (7.4-10.4) Neutrophils (%) (Auto) 67.4 % Lymphocytes (%) (Auto) 18.3 % Monocytes (%) (Auto) 11.9 % Eosinophils (%) (Auto) 2.0 % Basophils (%) (Auto) 0.2 % Neutrophils # (Auto) 2.73 K/uL (1.4-6.5) Lymphocytes # (Auto) 0.74 K/uL (1.2-3.4) Monocytes # (Auto) 0.48 K/uL (0.11-0.59) Eosinophils # (Auto) 0.08 K/uL (0-0.5) Basophils # (Auto) 0.01 K/uL (0-0.2) RDW Standard Deviation 61.6 fL (36.4-46.3) RDW Coefficient of Variation 17.1 % (11.5-14.5) Immature Granulocyte % (Auto) 0.2 % Immature Granulocyte # (Auto) 0.01 K/uL (0.00-0.02) Anion Gap 4.0 mmol/L (3-11) Est Creatinine Clear Calc Drug Dose 17.1 ml/min Estimated GFR () 16.6 Estimated GFR (Non- 14.3 BUN/Creatinine Ratio 11.4 (10-20) Calcium Level 8.7 mg/dl (8.5-10.1) Magnesium Level 2.1 mg/dl (1.8-2.4) Total Bilirubin 0.6 mg/dl (0.2-1) Direct Bilirubin 0.2 mg/dl (0-0.2) Aspartate Amino Transf (AST/SGOT) 20 U/L (15-37) Alanine Aminotransferase (ALT/SGPT) 29 U/L (12-78) Alkaline Phosphatase 108 U/L (45-117) Total Creatine Kinase 79 U/L (26-192) Creatine Kinase MB 3.5 ng/ml (0.5-3.6) Creatine Kinase MB Ratio 4.4 (0-3.0) Troponin I 0.568 ng/ml (0-0.045) Total Protein 7.0 gm/dl (6.4-8.2) Albumin 3.0 gm/dl (3.4-5.0) Laboratory results per my review. Medications Administered Medications (Trade) Dose Ordered Sig/Tu Route Start Time Stop Time Status Last Admin Dose Admin Miscellaneous (Xopenex/ Atrovent Neb) 1 ea NOW STAT INH 10/30/17 02:00 10/30/17 02:04 DC 10/30/17 02:55 1 EA Hydrocodone Bit/ Homatropine Methylb (Hycodan Syrup) 10 ml NOW STAT PO 10/30/17 03:45 10/30/17 03:46 DC 10/30/17 03:55 10 ML ECG Per My Interpretation Indication: SOB/dyspnea Rate (beats per minute): 100 Rhythm: normal sinus Findings: LBBB (incomplete), prolonged QT, other (left ventricular hypertrophy , T-wave flattening laterally, QTC is 521, no PVC's, no acute ST segment change ) ED Course 0151: Past medical records reviewed. The patient was evaluated in room B6. A complete history and physical examination was performed. 0200: Ordered Xopenex/Atrovent Neb 1 ea INH. 0320: I reevaluated the patient. 0345: Ordered Hycodan Syrup 10 ml PO. 0349: I updated the patient and discussed findings with her. I ordered cough syrup and contacted case management to help arrange discharge transport. Upon reevaluation, the patient appeared to have improvement of her symptoms. She was discharged home and is awaiting transport. Medical Decision Differential diagnosis: Etiologies such as infections, reactive airway disease, pneumonia, pneumothorax , COPD, CHF, cardiac ischemia, pulmonary embolism, musculoskeletal, gastrointestinal, as well as others were entertained. This pt was evaluated and appeared to be in no distress. Pt was given a xopenex /atrovent neb with improvement in symptoms. CXR is negative for acute process. She is breathing comfortably on n/c O2, home dose. Pt is due for dialysis this morning. Lab work is significant for elevated troponin and creatinine which is her baseline. Pt was observed in the ED for an extended period of time , awaiting transport from [facility] by her son. She was d/c to go to dialysis [facility]. She will fu with PCP and return to the ED for worsening of symptoms or any medical concerns. Medication Reconcilliation Current Medication List: was personally reviewed by me Blood Pressure Screening Patient's blood pressure: Elevated blood pressure Blood pressure disposition: Elevated BP felt to be situational Impression Primary Impression: COPD (chronic obstructive pulmonary disease) Additional Impressions: Elevated troponin ESRD (end stage renal disease) on dialysis Chronic cough Scribe Attestation The scribe's documentation has been prepared under my direction and personally reviewed by me in its entirety. I confirm that the note above accurately reflects all work, treatment, procedures, and medical decision making performed by me. Departure Information Dispostion Home / Self-Care Prescriptions Hydrocodone W/ Homatropine (HYCODAN 5/1.5MG 5 ML) 1 Syp Syp 5-10 ML PO Qhs Y for Cough, #100 ML Prov: Hellen Florian M.D. 10/30/17 Referrals Karla Todd M.D. (PCP) Shawn Marie MD Forms HOME CARE DOCUMENTATION FORM, IMPORTANT VISIT INFORMATION Patient Instructions My [facility] Additional Instructions Diagnosis: COPD, chronic cough, end-stage renal disease, chronically elevated troponin Continue your nebulizer treatments as prescribed. Contact Dr. Marie's office tomorrow to double check on bronchoscopy scheduling. Hycodan syrup 5-10 mL before bed as needed for cough. Do not drive after taking this medication. Return to the emergency department for worsening of symptoms or any medical concerns. Problem Qualifiers
[2017-10-30] MEDS ORDERED: LEVALBUTEROL/IPRATROPIUM NEB INH STA (02:00)
[2017-10-30 02:42] LABS: BASO % 0.2 %; BASO ABS # 0.01 K/uL (0-0.2); EOS ABS # 0.08 K/uL (0-0.5); HEMATOCRIT 30.9 % (37-47); HEMOGLOBIN 9.9 g/dL (12.0-16.0); IG# 0.01 K/uL (0.00-0.02); LYMPH % 18.3 %; LYMPH ABS # 0.74 K/uL (1.2-3.4); MEAN CELL VOLUME 97.5 fL (80-100); MEAN CORPUSCULAR HEMOGLOBIN 31.2 pg (25-34); MEAN PLATELET VOLUME 9.4 fL (7.4-10.4); MONO % 11.9 %; MONO ABS # 0.48 K/uL (0.11-0.59); NEUT % 67.4 %; NEUT ABS # 2.73 K/uL (1.4-6.5); PLATELET COUNT 129 K/uL (130-400); RED CELL DISTRIBUTION WIDTH CV 17.1 % (11.5-14.5); RED CELL DISTRIBUTION WIDTH SD 61.6 fL (36.4-46.3); WHITE BLOOD COUNT 4.05 K/uL (4.8-10.8)
[2017-10-30 03:09] LABS: CALCIUM 8.7 mg/dl (8.5-10.1); CREATININE 3.16 mg/dl (0.60-1.20); POTASSIUM 4.2 mmol/L (3.5-5.1)
[2017-10-30 03:24] LABS: CKMB 3.5 ng/ml (0.5-3.6)
[2017-10-30] MEDS ORDERED: HYDROCODONE/HOMATROPINE SYRUP 5MG/1.5MG 5ML UDP PO STA (03:45)
[2017-10-30] MEDS ORDERED: HYDR5SYP11 PO (04:11)
--- NOTE | 2017-10-30 06:48 | DIAGNOSTIC IMAGING REPORT ---
CHEST ONE VIEW PORTABLE CLINICAL HISTORY: SOB, COPD COMPARISON STUDY: Chest CT October 14, 2017. FINDINGS: There is no pneumothorax. Blunting of left costophrenic angle is unchanged. There is moderate cardiomegaly without evidence for pulmonary edema. There is a suspected trace left pleural effusion. The left mid lung airspace opacity shown on CT of October 14, 2017 has likely decreased in size since previous exam. IMPRESSION: 1. Interval decrease in size of the left upper lobe airspace opacity shown on CT of October 14, 2017. This suggests a resolving pneumonia. Continued radiographic follow up to ensure resolution is recommended. 2. Trace left pleural effusion which is unchanged. 3. Moderate cardiomegaly without evidence for pulmonary edema. Electronically signed by: Roger Gorman M.D. 10/30/2017 6:46 AM Dictated Date/Time: 10/30/2017 6:44 AM
[2017-10-30 08:40] VITALS: BP 141/76; PULSE 84; O2SAT 93
== END 2017-10-30 08:40 | disposition home or self-care (01) ==
LOC: EDBD 01:18 → C.EDB 01:20
DX: J44.9 Chronic obstructive pulmonary disease, unspecified (principal); R79.89 Other specified abnormal findings of blood chemistry; N18.4 Chronic kidney disease, stage 4 (severe); Z99.2 Dependence on renal dialysis; I13.0 Hypertensive heart and chronic kidney disease with heart failure and stage 1 through stage 4 chronic kidney disease, or unspecified chronic kidney disease; I50.9 Heart failure, unspecified; E11.22 Type 2 diabetes mellitus with diabetic chronic kidney disease; E78.5 Hyperlipidemia, unspecified; Z99.81 Dependence on supplemental oxygen; Z79.4 Long term (current) use of insulin; Z88.8 Allergy status to other drugs, medicaments and biological substances; Z82.49 Family history of ischemic heart disease and other diseases of the circulatory system

== ENCOUNTER 2017-11-03 09:22 | Inpatient (IN) | payer OTHER ==
[~2017-11-03] VITALS: Ht 157.5 cm; Wt 86.5 kg
[2017-11-03] VITALS (9 sets, daily range): BP systolic 106–151; BP diastolic 58–69; PULSE 74–103; TEMP 36.4–36.9; O2SAT 90–95; BMI 33.9
[~2017-11-03 09:22] MED LIST changes: -AMOX500T3 PO; +HYDR5SYP11 PO; -NYSS/; -PRED10TA PO
[2017-11-03] MEDS ORDERED: ACETAMINOPHEN 325 MG TAB PO PRN (10:15)
[2017-11-03 10:45] LABS: BASO % 0.2 %; BASO ABS # 0.01 K/uL (0-0.2); EOS % 0.2 %; EOS ABS # 0.01 K/uL (0-0.5); HEMATOCRIT 28.7 % (37-47); HEMOGLOBIN 9.4 g/dL (12.0-16.0); IG# 0.03 K/uL (0.00-0.02); LYMPH % 22.4 %; LYMPH ABS # 1.16 K/uL (1.2-3.4); MEAN CORPUSCULAR HEMOGLOBIN 31.8 pg (25-34); MEAN CORPUSCULAR HGB CONC 32.8 g/dl (32-36); MEAN PLATELET VOLUME 9.5 fL (7.4-10.4); MONO % 9.3 %; MONO ABS # 0.48 K/uL (0.11-0.59); NEUT % 67.3 %; NEUT ABS # 3.48 K/uL (1.4-6.5); PLATELET COUNT 152 K/uL (130-400); RED CELL DISTRIBUTION WIDTH CV 18.4 % (11.5-14.5); RED CELL DISTRIBUTION WIDTH SD 65.2 fL (36.4-46.3); WHITE BLOOD COUNT 5.17 K/uL (4.8-10.8)
[2017-11-03] MEDS ORDERED: INSULIN ASPART 100 UNITS/ML 3 ML PEN SC SCH (11:00)
[2017-11-03] MEDS ORDERED: ALBUT/IPRATROP 3MG/0.5MG NEB 3 ML VIAL INH PRN (11:00)
[2017-11-03 11:11] LABS: BLOOD UREA NITROGEN 31 mg/dl (7-18); CALCIUM 8.3 mg/dl (8.5-10.1); CARBON DIOXIDE 32 mmol/L (21-32); CREATININE 4.04 mg/dl (0.60-1.20); GLUCOSE 168 mg/dl (70-99); POTASSIUM 4.5 mmol/L (3.5-5.1); SODIUM 131 mmol/L (136-145)
--- NOTE | 2017-11-03 11:14 | Pulmonary Consultation ---
History General Date of Service: Nov 03, 2017. Chief Complaint: Progressive shortness of breath Stated Complaint: Bilateral Pneumonia, Copd Exacerbation HPI The patient is a 67 year old female who presents to [facility] with complaints of Bilateral Pneumonia, Copd Exacerbation. The patient's primary care provider is Karla Todd M.D.. PMH includes: DMII with recent HgB A1c 8.4 in 09/2017 ESRD with last episode of dialysis yesterday at which time she had fever There is a 67-year-old female that has had multiple admissions over the last year for shortness of breath. Her last admission she was found to have influenza type a. She was treated supportively and received Tamiflu in addition. She was discharged home and has since continued to have progressive shortness of breath. She was seen by Dr. escobar in the office today and he referred her for direct admission and evaluation for possible bronchoscopy. Concern is for a developing viral pneumonia versus secondary bacterial infection. She is on home O2 but states that she has not generally used until her influenza. She is currently in her room resting comfortably and appears in no acute distress and has no use of accessory muscles but does have cough which is nonproductive. The patient denies chest pain or tightness. She has no significant back pain or flank pain. She denies pleuritic pain, hemoptysis, lower leg edema, calf pain, fever, chills, rigors. The patient denies any history of tobacco abuse. The patient states that her respiratory difficulty began at approximately age 23. The father was a heavy smoker and she has secondhand exposure. Otherwise, she denies any other acute complaints other than malaise. Previous workups: Cardiac catheterization: 09/26/13 HEMODYNAMICS: o Aortic blood pressure is 136/67 mmHg with a mean of 95 mmHg. o Left ventricular pressure is 133/19 mmHg with an left ventricular o end-diastolic pressure of 37 mmHg. o Transaortic valve gradient is 3 mmHg. borderline nonocclusive disease in the proximal LAD. significantly elevated left ventricular and diastolic pressure o likely etiology of her congestive heart failure and shortness of breath. This may be attributed to mitral regurgitation. 6 minute walk test : 08/27/15 Minute heart rate O2 sat 1 87 96 2 94 90 3 96 90 4 98 90 5 97 91 6 94 92 Recovery: Heart rate 79/respiratory rate 20/sat 99(RA)/dyspnea scale 5 Pulmonary function test 03/09/15 (moderately severe obstructive ventilatory disease/no signs of significant reversibility) Spirometry Pre post percent change FEV1/FVC: 68 71 4 FEV1: 1.16/55% 1.20/57% 4 FVC: 1.70/63% 1.71/63% 0 SVC: 1.80/66% T.25/89% RV: 2.45/122% DLCO: 20% DL/VA: 63% Family History FH: HTN (hypertension) Social History Hx Tobacco Use In Past Year?: No Smoking Status: Never Smoker Marital status: Housing status: lives with family Occupational Status: retired Immunizations History of Influenza Vaccine: Yes Influenza Vaccine Date: Jul 08, 2011 History of Tetanus Vaccine?: No History of Pneumococcal: No Pneumococcal Date: Mar 07, 2010 History of Hepatitis B Vaccine: No History of MDRO History of MDRO: Yes Type of MDRO: MRSA Allergies Coded Allergies: Hydralazine (Verified Allergy, Intermediate, rash, 10/30/17) Isosorbide Nitrate (Verified Allergy, Unknown, ITCHING, 10/30/17) EZE Inhibitors (Verified Adverse Reaction, Unknown, DUE TO CKD, 10/30/17) Current Medications Reported Home Medications Medications Dose Route/Sig Max Daily Dose Days Date Category Dose Instructions Hycodan 5/1.5MG 5 Ml (Hydrocodone W/ Homatropine) 1 Syp Syp 5-10 Ml PO QHS PRN 10/30/17 Rx Tessalon Perles (Benzonatate) 100 Mg Cap 100 Mg PO TID PRN 10/04/17 Reported Coreg (Carvedilol) 25 Mg Tab 25 Mg PO BID 10/04/17 Reported Oxygen Gas 2 Liters NA PRN 06/29/17 Reported Nephrocaps (Vitamin B Complex/Vit C/Folic Acid) Cap 1 Cap PO QAM 06/29/17 Reported Phoslo 667 Mg (Calcium Acetate (Phosphate Bin) 667 Mg Cap 667 Mg PO BID 06/25/17 Reported Lantus Solostar (Insulin Glargine) 100 Unit/Ml Inj 13 Units SC AMPM 06/25/17 Reported Novolog Flexpen (Insulin Aspart) 100 Units/Ml Inj 1 Dose SC TID 06/25/17 Reported 10 units plus COVERAGE DIRECTED BY SLIDING SCALE Dulera 200/5 Mcg (Mometasone Furoate-Formoterol) 1 Aer Aer 2 Puffs INH BID 05/12/17 Reported Spiriva Handihaler (Tiotropium [place]) 30 Puff/540 Mcg Aerp 1 Cap INH DAILY 03/17/17 Reported Physical Physical Exam Vital Signs: Date Time Temp Pulse Resp B/P (MAP) Pulse Ox O2 Delivery O2 Flow Rate FiO2 11/03/17 10:10 36.9 102 20 106/58 (74) 93 Nasal Cannula 2.0 Physical Exam: General - NAD. No use of accessory muscles Eyes - No icterus, gaze conjugate ENT - Mucosa moist, no lesions or candidiasis Neck - Supple, No JVD Lungs - Diffuse wheezes. Coarse rhonchi at the bilateral bases. Heart - Regular, rate controlled. No appreciation of ectopy Abdomen - Soft, NT, ND, BS present Extremities - No edema, pedal pulses intact Neuro - A&OX3 Diagnostics Labs Results Past 24 Hours Test 11/03/17 10:33 Range/Units White Blood Count 5.17 4.8-10.8 K/uL Red Blood Count 2.96 4.2-5.4 M/uL Hemoglobin 9.4 12.0-16.0 g/dL Hematocrit 28.7 37-47 % Mean Corpuscular Volume 97.0 80-100 fL Mean Corpuscular Hemoglobin 31.8 25-34 pg Mean Corpuscular Hemoglobin Concent 32.8 32-36 g/dl Platelet Count 152 130-400 K/uL Mean Platelet Volume 9.5 7.4-10.4 fL Neutrophils (%) (Auto) 67.3 % Lymphocytes (%) (Auto) 22.4 % Monocytes (%) (Auto) 9.3 % Eosinophils (%) (Auto) 0.2 % Basophils (%) (Auto) 0.2 % Neutrophils # (Auto) 3.48 1.4-6.5 K/uL Lymphocytes # (Auto) 1.16 1.2-3.4 K/uL Monocytes # (Auto) 0.48 0.11-0.59 K/uL Eosinophils # (Auto) 0.01 0-0.5 K/uL Basophils # (Auto) 0.01 0-0.2 K/uL RDW Standard Deviation 65.2 36.4-46.3 fL RDW Coefficient of Variation 18.4 11.5-14.5 % Immature Granulocyte % (Auto) 0.6 % Immature Granulocyte # (Auto) 0.03 0.00-0.02 K/uL Diagnostic Radiology (CHEST) THORAX WITHOUT CT DOSE: 690.78 mGy.cm CLINICAL HISTORY: 67 years-old Female with sob, hx kidney disease . Acute shortness of breath with history of left pleural effusion. TECHNIQUE: Multiaxial CT images of the chest were performed without contrast. A dose lowering technique was utilized adhering to the principles of ALARA. COMPARISON: Chest radiographs 10/04/2017, CT chest 10/08/2008. FINDINGS: No dominant thyroid nodule identified. There are several mildly prominent nonenlarged mediastinal lymph nodes including 8 mm right paratracheal lymph node. Moderate multichamber cardiac enlargement with coronary arterial disease. Trace pericardial effusion. No thoracic aortic aneurysm identified. There is dilation of the main pulmonary artery measuring 3.7 cm transversely suggesting pulmonary arterial hypertension. There is a trace left pleural effusion. No pneumothorax identified. There are multiple subsegmental bronchovascular distribution of groundglass and consolidative opacities within all lobes bilaterally with superimposed linear consolidative opacities of the lung bases. There is a focal round consolidation with central air bronchogram demonstrating lobular margins and peripheral groundglass attenuation, 2.5 x 2.2 cm within the lingula on image 105 series 4. The central airways are patent. There is mild bronchial wall thickening bilaterally suggesting associated bronchitis. No significant intralobular septal thickening to suggest pulmonary edema. No acute abnormality of the imaged upper abdomen. The soft tissues are unremarkable. Multilevel intervertebral disc space narrowing with endplate spurring and facet arthropathy. IMPRESSION: 1. Multiple subsegmental bronchovascular distribution of groundglass and consolidative opacities within a multisegmental and multilobar distribution bilaterally suggests bronchopneumonia. Additionally, there is a focal round consolidative opacity with ill-defined margins and central air bronchograms measuring 2.5 cm in diameter, likely also related to infectious or inflammatory cause however a follow-up CT after treatment is needed to document resolution and exclude neoplastic etiology. 2. Trace left pleural effusion. 3. Cardiomegaly with trace pericardial effusion. 4. Dilation of the main pulmonary artery suggests pulmonary arterial hypertension. Electronically signed by: Solo Roberts M.D. 10/14/2017 9:35 AM Impression Assessment and Plan POST INFLUENZA A SYNDROME * Concern for secondary bacterial infection * Direct admit from Dr. Escobar's office * Started on levofloxacin inpatient as patient was on doxycycline prior * Patient currently is afebrile but did have fever yesterday after dialysis * Will discuss with Dr. Marie regarding possible bronchoscopy * Hold off on bronch for now per Dr. Marie * Will start Dornase nebs and vest physiotherapy COPD history * Patient reports secondhand smoke exposure from her father while growing up * No prior history of tobacco abuse by patient * Patient has nebulizers at home * Will continue with bronchodilators and flutter valve * Most recent PFTs listed above Patient seen and evaluated. I don't feel this patient has a pna if if so we would have to change her abx coverage for HCAP but I will d/c the Levaquin. also after reviewing her chart I believe she warrants a RHC and oximetry study. HYPOXIA * Continue with supplemental oxygen to maintain saturations at 90% * Continue supportive measures as listed above * Most likely multifactorial to COPD, secondary bacterial infection, post influenza sequela * Ambulate as tolerated * Incentive spirometry, flutter valve * Will start Dornase nebs and vest physiotherapy DVT PROPHYLAXIS * Possible bronchoscopy tomorrow with Dr. Marie * TEDs/SCDs Thank you for including us in the care of this patient. Please refer to Dr. Marie's addendum for further recommendations
[2017-11-03] MEDS: ALBUT/IPRATROP 3MG/0.5MG NEB 3 ML VIAL INH SCH ×3 (11:22→20:00)
--- NOTE | 2017-11-03 11:26 | History and Physical ---
History & Physical Date & Time of Service: Nov 03, 2017 at 11:15 Chief Complaint: Bilateral Pneumonia, Copd Exacerbation Primary Care Physician: Karla Todd M.D. History of Present Illness 67-year-old female with chronic respiratory failure with hypoxia home oxygen who presents as a direct admission from pulmonary medical office due to increased dyspnea wheezing and poor air movement on exam. Patient was recently discharged from [facility] on 05 October that was her second admission in September 17 being September 28 where she was diagnosed with influenza A with a lateral left lung infiltrate versus atelectasis but confirmed to be likely an infectious etiology on CT scan of her chest. Patient was discharged on the on tapering doses of prednisone inhaled medications and with pulmonary follow-up is failed to improve and has worsened necessitating admission to the hospital today. There is concern with lack of clearing of her infiltrate that she may have an atypical process although she has been on outpatient doxycycline without much help. Patient relates to me that she had a fever during her dialysis treatment on she has no other focal complaints of illness other than a nonproductive cough. Although being on dialysis she still does make urine and has had no dysuria hematuria or changes in her urine. 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 (31) DIAB MANJIT WO COMPL, TYPE II OR UNSPEC TYPE, NOT UNCNTRLD (42) Hypercholesterolemia (47) Hypertension (54) Influenza A (59) Obesity (60) Obstructive sleep apnea (64) Peripheral neuropathy (66) Proteinuria (71) Secondary hyperparathyroidism of renal origin (75) Vitamin D deficiency, unspecified Family History FH: HTN (hypertension) Social History Smoking Status: Never Smoker Drug Use: none Marital Status: Housing status: lives with family Occupational Status: retired Immunizations History of Influenza Vaccine: Yes Influenza Vaccine Date: Jul 08, 2011 History of Tetanus Vaccine?: No History of Pneumococcal: No Pneumococcal Date: Mar 07, 2010 History of Hepatitis B Vaccine: No Allergies Coded Allergies: Hydralazine (Verified Allergy, Intermediate, rash, 10/30/17) Isosorbide Nitrate (Verified Allergy, Unknown, ITCHING, 10/30/17) EZE Inhibitors (Verified Adverse Reaction, Unknown, DUE TO CKD, 10/30/17) Home Medications Scheduled Calcium Acetate (Phosphate Bin (Phoslo 667 Mg), 667 MG PO BID Carvedilol (Coreg), 25 MG PO BID Home O2 Therapy (Oxygen), 2 LITERS NA PRN Insulin Aspart (Novolog Flexpen), 1 DOSE SC TID Insulin Glargine (Lantus Solostar), 13 UNITS SC AMPM Mometasone Furoate-Formoterol (Dulera 200/5 Mcg), 2 PUFFS INH BID Tiotropium [employer] (Spiriva Handihaler), 1 CAP INH DAILY Vitamin B Cmplx/Vitc/Folic Ac (Nephrocaps), 1 CAP PO QAM Scheduled PRN Benzonatate (Tessalon Perles), 100 MG PO TID PRN for Cough Hydrocodone W/ Homatropine (Hycodan 5/1.5MG 5 Ml), 5-10 ML PO Qhs PRN for Cough Review of Systems ROS: well nourished well developed. Has a loose cough No double vision blurry vision No problems with speech or swallowing No palpitations, chest pain or pressure Diffuse wheezing marked dyspnea not able to speak in full sentences pursed lip breathing during exam No abdominal pain nausea vomiting diarrhea changes in appetite or weight No burning urine urine frequency or changes in color No focal joint pain or muscle pain No skin rashes or oral lesions No unusual bruising or bleeding No focused back pain or numbness or loss of strength No changes in memory or confusion Physical Exam Vital Signs Date Time Temp Pulse Resp B/P (MAP) Pulse Ox O2 Delivery O2 Flow Rate FiO2 11/03/17 10:10 36.9 102 20 106/58 (74) 93 Nasal Cannula 2.0 General Appearance: WD/WN, + mild distress Head: normocephalic, atraumatic Eyes: normal inspection, sclerae normal ENT: hearing grossly normal, pharynx normal Neck: supple, thyroid normal, trachea midline Respiratory/Chest: + respiratory distress, + decreased breath sounds, + accessory muscle use, + wheezing Cardiovascular: regular rate, rhythm, no murmur Abdomen/GI: normal bowel sounds, non tender, soft Back: no CVA tenderness, normal range of motion Extremities/Musculoskelatal: normal inspection, no pedal edema Neurologic/Psych: alert, oriented x 3 Skin: normal color, warm/dry, no rash Diagnostics Laboratory Results Results Past 24 Hours Test 11/03/17 10:33 Range/Units White Blood Count 5.17 4.8-10.8 K/uL Red Blood Count 2.96 4.2-5.4 M/uL Hemoglobin 9.4 12.0-16.0 g/dL Hematocrit 28.7 37-47 % Mean Corpuscular Volume 97.0 80-100 fL Mean Corpuscular Hemoglobin 31.8 25-34 pg Mean Corpuscular Hemoglobin Concent 32.8 32-36 g/dl Platelet Count 152 130-400 K/uL Mean Platelet Volume 9.5 7.4-10.4 fL Neutrophils (%) (Auto) 67.3 % Lymphocytes (%) (Auto) 22.4 % Monocytes (%) (Auto) 9.3 % Eosinophils (%) (Auto) 0.2 % Basophils (%) (Auto) 0.2 % Neutrophils # (Auto) 3.48 1.4-6.5 K/uL Lymphocytes # (Auto) 1.16 1.2-3.4 K/uL Monocytes # (Auto) 0.48 0.11-0.59 K/uL Eosinophils # (Auto) 0.01 0-0.5 K/uL Basophils # (Auto) 0.01 0-0.2 K/uL RDW Standard Deviation 65.2 36.4-46.3 fL RDW Coefficient of Variation 18.4 11.5-14.5 % Immature Granulocyte % (Auto) 0.6 % Immature Granulocyte # (Auto) 0.03 0.00-0.02 K/uL Sodium Level 131 136-145 mmol/L Potassium Level 4.5 3.5-5.1 mmol/L Chloride Level 92 98-107 mmol/L Carbon Dioxide Level 32 21-32 mmol/L Anion Gap 7.0 3-11 mmol/L Blood Urea Nitrogen 31 7-18 mg/dl Creatinine 4.04 0.60-1.20 mg/dl Estimated GFR () 12.3 Estimated GFR (Non- 10.6 BUN/Creatinine Ratio 7.8 10-20 Random Glucose 168 70-99 mg/dl Calcium Level 8.3 8.5-10.1 mg/dl other (left lateral lung infiltate seen on most recent CXR) Impression Assessment and Plan 67-year-old female with chronic respiratory failure with hypoxia was failed outpatient treatment and has concern for persistent infectious process in her lung/pneumonia Infectious pneumonia, question gram negative or atypical infection. Patient put on Levaquin dosed appropriately for hemodialysis will attempt to expectorate mucus with the mucolytic and flutter valve. If the patient has a fever we will repeat blood cultures, she has no suspicion of urinary tract infection present on admission. We will repeat influenza and nasal MRSA swabs Respiratory failure with hypoxia patient has not done well as an outpatient setting she will return to intravenous Solu-Medrol dosing frequent nebulized medications for motor all and pulmonary evaluation for consideration of bronchoscopy. Also consideration of repeat CT scan last performed 10/14 End-stage renal disease secondary hyperparathyroidism of renal failure patient be maintain on Thursday dialysis with PhosLo Insulin requiring diabetes with end organ neuropathy and likely renal disease, the patient will be maintained on Lantus 13 units twice daily and sliding scale insulin with carb counting and carb coverage as she may be n.p.o. for a bronchoscopy on 11/04 will give her half of her morning dose on the day of her Lantus Patient history of Chronic diastolic heart failure which is stable at this time and hypertension maintained on Coreg 25 mg twice daily Patient be on heparin for DVT prevention based upon her renal dysfunction Resuscitation Status VTE Prophylaxis Will order VTE Prophylaxis: Yes
[2017-11-03] MEDS ORDERED: DEXTROSE 50% 50 ML SYR IV PRN (11:30)
[2017-11-03] MEDS ORDERED: GLUCOSE 40% GEL 15 GM TUBE PO PRN (11:30)
[2017-11-03] MEDS ORDERED: LEVOFLOXACIN CONSULT ACTIVE PRN (11:30)
[2017-11-03] MEDS ORDERED: GLUCAGON FOR INJ 1 MG VIAL SQ PRN (11:30)
[2017-11-03] MEDS ORDERED: GLUCOSE 10 TABS/TUBE PO PRN (11:30)
[2017-11-03] MEDS ORDERED: LEVOFLOXACIN / D5W 750 MG in PREMIXED IN D5W 150 ML IV ONE (12:00)
[2017-11-03] MEDS ORDERED: DORNASE ALFA 2.5 ML AMP INH ONE (12:15)
[2017-11-03 12:58] LABS: INR 1.1 (0.9-1.1); PTT PATIENT 26.1 SECONDS (21.0-31.0)
--- NOTE | 2017-11-03 13:01 | DIAGNOSTIC IMAGING REPORT ---
CHEST ONE VIEW PORTABLE CLINICAL HISTORY: 67 years-old Female presenting with Hypoxia, sequela from influenza A. TECHNIQUE: Portable upright AP view of the chest was obtained. COMPARISON: 10/30/2017. FINDINGS: Moderate cardiac silhouette enlargement. Essential resolution of focal opacity in the periphery of the left upper lobe. No new focal opacity. No large effusion or pneumothorax. Osseous structures normal. Upper abdomen normal. IMPRESSION: 1. Essential resolution of the previously noted focal consolidation in the left upper lobe. No acute cardiopulmonary disease. 2. Cardiomegaly. Electronically signed by: Jim Redmond M.D. 11/03/2017 12:59 PM Dictated Date/Time: 11/03/2017 12:58 PM
[2017-11-03] MEDS: METHYLPREDNISOLONE IV 40 MG in SYRINGE 0 ML IV SCH ×2 (13:30→21:01)
[2017-11-03] MEDS: INSULIN ASPART 100 UNITS/ML 3 ML PEN SC SCH ×3 (13:33→21:14)
[2017-11-03 15:11] LABS: INFLUENZA B ANTIGEN Neg for Influ B (NEG)
--- NOTE | 2017-11-03 16:48 | Nephrology Consultation ---
Nephrology Consultation Date & Providers Date of Consultation: Nov 03, 2017. Primary Care Provider: Karla Todd M.D. Referring Provider: Reason for Consultation ESRD History of Present Illness Mrs. Santiago was seen and examined at the request of Dr. Crowe to provide inpatient HD. Medical records in the hospital EMR were reviewed and are summarized as follows: Mrs. Santiago has ESRD due to diabetic nephropathy. She has been on HD since 07/02 and dialyzes MWF at [facility] (4 hr, 2K 2Ca, F- 180NR, Qb 400 Qd A1.5, EDW 83.5 kg). Her medical history is significant for COPD, DM, HTN, ASCVD s/p NSTEMI, anemia, COPD, STEPHEN, osteomyelitis s/p amputation of 3rd right toe, hypercholesterolemia, BMI > 35. Ms. Santiago was hospitalized 09/28 - 10/01 due to Influenza. Unfortunately this was complicated by a COPD exacerbation and she required readmission 10/04 - 10/05. Since discharge from the hospital Mrs. Santiago has had a persistent cough. This has progressively worsened and she was seen by Pulmonology. Chest CT revealed patchy bilateral infiltrates and a possible 2.5 cm lesion near the L lingula concerning for infection or mass. Mrs. Santiago is now admitted for antibiotic therapy. She is scheduled for bronchoscopy in the am. Nephrology consultation has been requested to provide inpatient HD. Past Medical/Surgical History Medical: # ESRD on HD MWF # COPD # AODM # HTN # ASCVD s/p NSTEMI # ICM w/ LVEF 35% and moderate MR # Anemia # STEPHEN # Osteomyelitis s/p amputation of 3rd right toe # Hypercholesterolemia # BMI > 35 Surgical: # Left upper arm AV fistula created 10/10/[address] Cobb # Third right toe amputation due to osteomyelitis Allergies Coded Allergies: Hydralazine (Verified Allergy, Intermediate, rash, 10/30/17) Isosorbide Nitrate (Verified Allergy, Unknown, ITCHING, 10/30/17) EZE Inhibitors (Verified Adverse Reaction, Unknown, DUE TO CKD, 10/30/17) Inpatient Medications Current Inpatient Medications Medications (Trade) Dose Ordered Sig/Tu Route Start Time Stop Time Status Last Admin Dose Admin Acetaminophen (Tylenol Tab) 650 mg Q4H PRN PO 11/03/17 10:15 12/03/17 10:14 Polyethylene (Miralax Powder Packet) 17 gm DAILY PRN PO 3/20/18 10:15 12/03/17 10:14 Ondansetron HCl (Zofran Inj) 4 mg Q6H PRN IV 11/03/17 10:15 12/03/17 10:14 Calcium Acetate (Phoslo Cap) 667 mg BIDM PO 11/03/17 17:00 12/03/17 16:59 Carvedilol (Coreg Tab) 25 mg BID PO 11/03/17 21:00 12/03/17 20:59 Insulin Glargine (Lantus Solostar Pen) 13 units BID SC 11/03/17 21:00 12/03/17 20:59 Tiotropium [place] (Spiriva Handihaler Inhaler) 1 puff DAILY INH 11/04/17 09:00 12/04/17 08:59 Miscellaneous Information (Order Awaiting Action) 1 ea QS N/A 11/03/17 16:00 12/03/17 15:59 Albuterol/ Ipratropium (Duoneb) 3 ml QIDR INH 11/03/17 12:00 12/03/17 11:59 11/03/17 15:33 3 ML Methylprednisolone Sodium Succinate 40 mg/Syringe 0.64 ml @ 1.5 mls/min Q8H IV 11/03/17 12:00 12/03/17 11:59 11/03/17 13:30 1.5 MLS/MIN Formoterol Fumarate (Perforomist 20MCG/2ML Neb Soln) 20 mcg BIDR INH 11/03/17 20:00 12/03/17 19:59 Albuterol/ Ipratropium (Duoneb) 3 ml Q2H PRN INH 11/03/17 11:00 12/03/17 10:59 Insulin Aspart (novoLOG ASPART) SLIDING SCALE PARAMETER ACHS SC 11/03/17 11:30 12/03/17 11:29 11/03/17 13:33 5 UNITS Guaifenesin (Mucinex Contr Rel Tab) 1,200 mg Q12 PO 11/03/17 21:00 12/03/17 20:59 Glucose (Glucose 40% Gel) 15-30 GRAMS 15 GRAMS... UD PRN PO 11/03/17 11:30 12/03/17 11:29 Glucose (Glucose Chew Tab) 4-8 Tablets 4 Tabl... UD PRN PO 11/03/17 11:30 12/03/17 11:29 Dextrose (Dextrose 50% 50ML Syringe) 25-50ML OF 50% DW IV FOR... UD PRN IV 11/03/17 11:30 12/03/17 11:29 Glucagon (Glucagon Inj) 1 mg UD PRN SQ 11/03/17 11:30 12/03/17 11:29 Levofloxacin (Consult) 1 ea UD PRN N/A 11/03/17 11:30 12/03/17 11:29 Heparin Sodium (Porcine) (Heparin Sq 5000 Unit/0.5ml) 5,000 unit Q12 SQ 11/03/17 21:00 12/03/17 20:59 Levofloxacin 500 mg/Prmx 100 ml @ 100 mls/hr Q48H IV 11/05/17 12:00 11/10/17 11:59 Dornase Conor (Pulmozyme Inhalation Soln 2.5ml Amp) 2.5 ml BIDR INH 11/03/17 20:00 12/03/17 19:59 Family History FH: HTN (hypertension) Hypertension Social History Smoking Status: Never Smoker Drug Use: none Marital Status: Housing Status: lives with family Occupation: retired . Retired. Never a smoker Review of Systems Constitutional: No fever Respiratory: + cough, + dyspnea on exertion Cardiovascular: No chest pain Abdomen: No nausea, No vomiting A complete review of systems was performed. Pertinent positives are noted above. All other systems are negative. Physical Exam Date Time Temp Pulse Resp B/P (MAP) Pulse Ox O2 Delivery O2 Flow Rate FiO2 11/03/17 15:52 36.9 90 20 119/62 (81) 93 11/03/17 15:39 36.9 102 16 106/58 11/03/17 11:22 96 16 91 Nasal Cannula 2.0 11/03/17 10:10 36.9 102 20 106/58 (74) 93 Nasal Cannula 2.0 General Appearance: no apparent distress Head: normocephalic, atraumatic Eyes: PERRL, EOMI Neck: no adenopathy Respiratory/Chest: + rhonchi Cardiovascular: regular rate, rhythm Abdomen/GI: normal bowel sounds, non tender, soft Extremities/Musculoskelatal: no pedal edema, + pertinent finding (AVF + bruit) Neurologic/Psych: alert, oriented x 3 Skin: no rash Laboratory Results Last 24 Hours Test 11/03/17 10:33 11/03/17 11:29 11/03/17 12:31 11/03/17 14:29 White Blood Count 5.17 K/uL Red Blood Count 2.96 M/uL Hemoglobin 9.4 g/dL Hematocrit 28.7 % Mean Corpuscular Volume 97.0 fL Mean Corpuscular Hemoglobin 31.8 pg Mean Corpuscular Hemoglobin Concent 32.8 g/dl Platelet Count 152 K/uL Mean Platelet Volume 9.5 fL Neutrophils (%) (Auto) 67.3 % Lymphocytes (%) (Auto) 22.4 % Monocytes (%) (Auto) 9.3 % Eosinophils (%) (Auto) 0.2 % Basophils (%) (Auto) 0.2 % Neutrophils # (Auto) 3.48 K/uL Lymphocytes # (Auto) 1.16 K/uL Monocytes # (Auto) 0.48 K/uL Eosinophils # (Auto) 0.01 K/uL Basophils # (Auto) 0.01 K/uL RDW Standard Deviation 65.2 fL RDW Coefficient of Variation 18.4 % Immature Granulocyte % (Auto) 0.6 % Immature Granulocyte # (Auto) 0.03 K/uL Sodium Level 131 mmol/L Potassium Level 4.5 mmol/L Chloride Level 92 mmol/L Carbon Dioxide Level 32 mmol/L Anion Gap 7.0 mmol/L Blood Urea Nitrogen 31 mg/dl Creatinine 4.04 mg/dl Estimated GFR () 12.3 Estimated GFR (Non- 10.6 BUN/Creatinine Ratio 7.8 Random Glucose 168 mg/dl Calcium Level 8.3 mg/dl Bedside Glucose 173 mg/dl Prothrombin Time 11.4 SECONDS Prothromb Time International Ratio 1.1 Activated Partial Thromboplast Time 26.1 SECONDS Partial Thromboplastin Ratio 1.0 Influenza Type A Antigen Neg for Influ A Influenza Type B Antigen Neg for Influ B Impression (1) ESRD (end stage renal disease) on dialysis (2) Bilateral pneumonia (3) COPD (chronic obstructive pulmonary disease) (4) Lung mass Recommendations END STAGE RENAL DISEASE: -- Volume status and electrolyte balance are acceptable. No acute indication for HD at this time -- Will plan on HD tomorrow and coordinate schedule w/ Pulmonology -- Protect L arm AVF -- Renal diet HYPERTENSION: -- Blood pressure is well controlled. Continue Carvedilol ANEMIA: -- Stable. Appropriate. on VITALY as outpatient PULMONARY: -- Await bronchoscopy results and Pulmonology recommendations
[2017-11-03] MEDS: CALCIUM ACETATE 667MG GELCAP PO SCH (17:53)
[2017-11-03] MEDS: FORMOTEROL FUMA NEBULIZER SOLN 20 MCG/2 ML VIAL INH SCH (20:00)
[2017-11-03] MEDS: DORNASE ALFA 2.5 ML AMP INH SCH (20:00)
[2017-11-03] MEDS: GUAIFENESIN 600 MG TABCR PO SCH (21:00)
[2017-11-03] MEDS: CARVEDILOL 25 MG TAB PO SCH (21:06)
[2017-11-03] MEDS: INSULIN GLARGINE SOLOSTAR 100 UNITS/ML 3 ML PEN SC SCH (21:15)
[2017-11-03] MEDS: HEPARIN SOD 5000 UNIT/0.5 ML CARP SQ SCH (21:15)
[2017-11-03] MEDS ORDERED: NURSING DECISION MEDICATION ORDER SCH (21:45)
[2017-11-03] MEDS ORDERED: COUGH DROP (SUGAR FREE) LOZ 24 LOZ/1 BOX LOZ PRN (21:45)
[2017-11-03] MEDS: DEXTROMETHORPHAN POLYMR COMPLX 30 MG/5 ML UDP PO PRN (21:50)
[2017-11-04] VITALS (24 sets, daily range): BP systolic 93–122; BP diastolic 51–74; PULSE 65–97; TEMP 36.5–37; O2SAT 90–96; Ht 157.5 cm; Wt 86.5 kg
[2017-11-04] MEDS: METHYLPREDNISOLONE IV 40 MG in SYRINGE 0 ML IV SCH ×3 (03:31→21:24)
[2017-11-04] MEDS ORDERED: EPOETIN ALFA 10,000 UNITS/ML VIAL IV. ONE (06:00)
[2017-11-04] MEDS: ALBUT/IPRATROP 3MG/0.5MG NEB 3 ML VIAL INH SCH ×4 (07:01→20:00)
[2017-11-04] MEDS: FORMOTEROL FUMA NEBULIZER SOLN 20 MCG/2 ML VIAL INH SCH ×2 (07:01→20:20)
[2017-11-04] MEDS: DORNASE ALFA 2.5 ML AMP INH SCH ×2 (07:01→20:20)
[2017-11-04 07:30] LABS: EOS % 0.4 %; EOS ABS # 0.02 K/uL (0-0.5); HEMATOCRIT 28.7 % (37-47); HEMOGLOBIN 9.5 g/dL (12.0-16.0); IG# 0.01 K/uL (0.00-0.02); LYMPH % 8.5 %; LYMPH ABS # 0.48 K/uL (1.2-3.4); MEAN CELL VOLUME 95.3 fL (80-100); MEAN CORPUSCULAR HEMOGLOBIN 31.6 pg (25-34); MEAN CORPUSCULAR HGB CONC 33.1 g/dl (32-36); MEAN PLATELET VOLUME 9.8 fL (7.4-10.4); MONO ABS # 0.17 K/uL (0.11-0.59); NEUT % 87.9 %; NEUT ABS # 4.96 K/uL (1.4-6.5); PLATELET COUNT 151 K/uL (130-400); RED CELL DISTRIBUTION WIDTH CV 18.1 % (11.5-14.5); RED CELL DISTRIBUTION WIDTH SD 62.2 fL (36.4-46.3); WHITE BLOOD COUNT 5.64 K/uL (4.8-10.8)
[2017-11-04] MEDS: CALCIUM ACETATE 667MG GELCAP PO SCH ×2 (07:43→19:57)
[2017-11-04] MEDS: GUAIFENESIN 600 MG TABCR PO SCH ×2 (07:44→21:00)
[2017-11-04] MEDS: CARVEDILOL 25 MG TAB PO SCH ×2 (07:44→21:25)
[2017-11-04] MEDS: TIOTROPIUM BROMIDE 5 PUFF/90 MCG INH INH SCH (07:45)
--- NOTE | 2017-11-04 08:19 | Pulmonology Progress Note ---
Pulmonary Progress Note Date of Service Nov 04, 2017. Attending Dr. Marie Subjective Patient still notes to have dyspnea at rest and not at her baseline: Objective patient was tachypnea during our conversation VS: stable on 2L RESP: crackles bilaterally with some exp wheezing CARD: S1S2, RRR with distant heart sounds ABD: distended but soft non-tender no rebound EXT: no c/c/e US: few bilateral B-lines 2/3 of the josephine-thorax with no pleural effusions noted Pulmonary function study 08/20/2016: FEV1: 47%, no significant reversibility, DLCO 58% (severe COPD) Echocardiogram 10/30/2015 LV: EF=50-55%, concentric mild LVH RV: TAPSE >1.5cm LA: mildly dilated RA: mildly dilated IVC: normal collapsibility with sniff Labs WBC: 5K Cr: 4.04 Influenza a and B antigen: Negative CXR: Cardiomegaly with hilar fullness, cephalization timbo-bronchial cuffing and slowly resolving infiltrative patterns CT chest 10/14/2017 compared to 10/06: New left upper lobe 2.5 cm nodule Continued but increase bilateral upper lobe tree-in-bud infiltrative pattern Right middle lobe infiltrate versus bronchiectasis Oximetry Study 60% of the time with SaO2 80-87% Maximum Continuous period <89% (43.7mins) Current treatment 1. Levofloxacin 500 mg Q 48 2. Spiriva 1 puff daily 3. Dextromethorphan 30 mg q.8 hours p.r.n. 4. Guaifenesin 1200 mg Q 12 5. Dornase nebulized b.i.d. 6. Duo nebs q.i.d., Q 2 p.r.n. 7. Methylprednisolone 40 mg q.8 hours Assessment & Plan 67y/o female admitted for SOB with multiple recent admissions: 1) ID: This patient's presentation is not consistent with an active infection so I will d/c her Levaquin at this time. Continue to monitor and if she starts to present with signs and symptoms consistent with infection treat for HCAP. 2) Hypoxemia: Most likely a combination of sever COPD, STEPHEN vs. OHV and volume overload with diastolic dysfunction and renal insufiency. I will order an ABG at this time and ask Dr. Igor Estrada for a RHC. Data Medications: Current Inpatient Medications Medications (Trade) Dose Ordered Sig/Tu Route Start Time Stop Time Status Last Admin Dose Admin Acetaminophen (Tylenol Tab) 650 mg Q4H PRN PO 11/03/17 10:15 12/03/17 10:14 Polyethylene (Miralax Powder Packet) 17 gm DAILY PRN PO 11/03/17 10:15 12/03/17 10:14 Ondansetron HCl (Zofran Inj) 4 mg Q6H PRN IV 11/03/17 10:15 12/03/17 10:14 Calcium Acetate (Phoslo Cap) 667 mg BIDM PO 11/03/17 17:00 12/03/17 16:59 11/03/17 17:53 667 MG Carvedilol (Coreg Tab) 25 mg BID PO 11/03/17 21:00 12/03/17 20:59 11/03/17 21:06 25 MG Insulin Glargine (Lantus Solostar Pen) 13 units BID SC 11/03/17 21:00 12/03/17 20:59 11/03/17 21:15 13 UNITS Tiotropium [place] (Spiriva Handihaler Inhaler) 1 puff DAILY INH 11/04/17 09:00 12/04/17 08:59 Miscellaneous Information (Order Awaiting Action) 1 ea QS N/A 11/03/17 16:00 12/03/17 15:59 Albuterol/ Ipratropium (Duoneb) 3 ml QIDR INH 11/03/17 12:00 12/03/17 11:59 11/03/17 20:00 3 ML Methylprednisolone Sodium Succinate 40 mg/Syringe 0.64 ml @ 1.5 mls/min Q8H IV 11/03/17 12:00 12/03/17 11:59 11/04/17 03:31 1.5 MLS/MIN Formoterol Fumarate (Perforomist 20MCG/2ML Neb Soln) 20 mcg BIDR INH 11/03/17 20:00 12/03/17 19:59 11/04/17 07:01 20 MCG Albuterol/ Ipratropium (Duoneb) 3 ml Q2H PRN INH 11/03/17 11:00 12/03/17 10:59 11/03/17 23:06 3 ML Insulin Aspart (novoLOG ASPART) SLIDING SCALE PARAMETER ACHS SC 11/03/17 11:30 12/03/17 11:29 11/03/17 21:14 7 UNITS Guaifenesin (Mucinex Contr Rel Tab) 1,200 mg Q12 PO 11/03/17 21:00 12/03/17 20:59 Glucose (Glucose 40% Gel) 15-30 GRAMS 15 GRAMS... UD PRN PO 11/03/17 11:30 12/03/17 11:29 Glucose (Glucose Chew Tab) 4-8 Tablets 4 Tabl... UD PRN PO 11/03/17 11:30 12/03/17 11:29 Dextrose (Dextrose 50% 50ML Syringe) 25-50ML OF 50% DW IV FOR... UD PRN IV 11/03/17 11:30 12/03/17 11:29 Glucagon (Glucagon Inj) 1 mg UD PRN SQ 11/03/17 11:30 12/03/17 11:29 Levofloxacin (Consult) 1 ea UD PRN N/A 11/03/17 11:30 12/03/17 11:29 Heparin Sodium (Porcine) (Heparin Sq 5000 Unit/0.5ml) 5,000 unit Q12 SQ 11/03/17 21:00 12/03/17 20:59 11/03/17 21:15 5,000 UNIT Levofloxacin 500 mg/Prmx 100 ml @ 100 mls/hr Q48H IV 11/05/17 12:00 11/10/17 11:59 Dornase [place] (Pulmozyme Inhalation Soln 2.5ml Amp) 2.5 ml BIDR INH 11/03/17 20:00 12/03/17 19:59 Dextromethorphan Polymer Complex (Delsym Susp) 30 mg Q8H PRN PO 11/03/17 21:30 12/03/17 21:29 11/03/17 21:50 30 MG Menthol (Nice Keila) 1 keila PRN PRN KEILA 11/03/17 21:45 12/03/17 21:44 11/03/17 21:49 1 KEILA Vital Signs: Date Time Temp Pulse Resp B/P (MAP) Pulse Ox O2 Delivery O2 Flow Rate FiO2 11/04/17 07:13 36.6 70 18 110/67 (81) 96 11/04/17 07:01 74 20 92 Nasal Cannula 2.0 11/04/17 00:00 90 Nasal Cannula 2.0 11/03/17 23:08 74 22 90 Nasal Cannula 2.0 11/03/17 23:07 36.4 94 20 119/58 (78) 90 2.0 11/03/17 21:03 103 151/69 (96) 11/03/17 20:05 98 18 92 Nasal Cannula 2.0 11/03/17 16:00 Nasal Cannula 2.0 11/03/17 15:52 36.9 90 20 119/62 (81) 93 11/03/17 15:39 36.9 102 16 106/58 93 Nasal Cannula 2.0 11/03/17 15:33 90 16 95 Nasal Cannula 2.0 11/03/17 11:22 96 16 91 Nasal Cannula 2.0 11/03/17 10:10 36.9 102 20 106/58 (74) 93 Nasal Cannula 2.0 Laboratory Results: Last 24 Hours Test 11/03/17 10:33 11/03/17 11:29 11/03/17 12:31 11/03/17 14:29 White Blood Count 5.17 K/uL Red Blood Count 2.96 M/uL Hemoglobin 9.4 g/dL Hematocrit 28.7 % Mean Corpuscular Volume 97.0 fL Mean Corpuscular Hemoglobin 31.8 pg Mean Corpuscular Hemoglobin Concent 32.8 g/dl Platelet Count 152 K/uL Mean Platelet Volume 9.5 fL Neutrophils (%) (Auto) 67.3 % Lymphocytes (%) (Auto) 22.4 % Monocytes (%) (Auto) 9.3 % Eosinophils (%) (Auto) 0.2 % Basophils (%) (Auto) 0.2 % Neutrophils # (Auto) 3.48 K/uL Lymphocytes # (Auto) 1.16 K/uL Monocytes # (Auto) 0.48 K/uL Eosinophils # (Auto) 0.01 K/uL Basophils # (Auto) 0.01 K/uL RDW Standard Deviation 65.2 fL RDW Coefficient of Variation 18.4 % Immature Granulocyte % (Auto) 0.6 % Immature Granulocyte # (Auto) 0.03 K/uL Sodium Level 131 mmol/L Potassium Level 4.5 mmol/L Chloride Level 92 mmol/L Carbon Dioxide Level 32 mmol/L Anion Gap 7.0 mmol/L Blood Urea Nitrogen 31 mg/dl Creatinine 4.04 mg/dl Estimated GFR () 12.3 Estimated GFR (Non- 10.6 BUN/Creatinine Ratio 7.8 Random Glucose 168 mg/dl Calcium Level 8.3 mg/dl Bedside Glucose 173 mg/dl Prothrombin Time 11.4 SECONDS Prothromb Time International Ratio 1.1 Activated Partial Thromboplast Time 26.1 SECONDS Partial Thromboplastin Ratio 1.0 Influenza Type A Antigen Neg for Influ A Influenza Type B Antigen Neg for Influ B Test 11/03/17 16:55 11/03/17 20:29 11/04/17 07:09 11/04/17 07:36 Bedside Glucose 162 mg/dl 324 mg/dl 298 mg/dl White Blood Count 5.64 K/uL Red Blood Count 3.01 M/uL Hemoglobin 9.5 g/dL Hematocrit 28.7 % Mean Corpuscular Volume 95.3 fL Mean Corpuscular Hemoglobin 31.6 pg Mean Corpuscular Hemoglobin Concent 33.1 g/dl Platelet Count 151 K/uL Mean Platelet Volume 9.8 fL Neutrophils (%) (Auto) 87.9 % Lymphocytes (%) (Auto) 8.5 % Monocytes (%) (Auto) 3.0 % Eosinophils (%) (Auto) 0.4 % Basophils (%) (Auto) 0.0 % Neutrophils # (Auto) 4.96 K/uL Lymphocytes # (Auto) 0.48 K/uL Monocytes # (Auto) 0.17 K/uL Eosinophils # (Auto) 0.02 K/uL Basophils # (Auto) 0.00 K/uL RDW Standard Deviation 62.2 fL RDW Coefficient of Variation 18.1 % Immature Granulocyte % (Auto) 0.2 % Immature Granulocyte # (Auto) 0.01 K/uL
[2017-11-04 08:20] LABS: CALCIUM 8.6 mg/dl (8.5-10.1); CREATININE 4.99 mg/dl (0.60-1.20); POTASSIUM 5.5 mmol/L (3.5-5.1)
[2017-11-04] MEDS: INSULIN ASPART 100 UNITS/ML 3 ML PEN SC SCH ×4 (08:21→21:28)
[2017-11-04] MEDS: HEPARIN SOD 5000 UNIT/0.5 ML CARP SQ SCH ×2 (08:22→21:29)
[2017-11-04] MEDS: INSULIN GLARGINE SOLOSTAR 100 UNITS/ML 3 ML PEN SC SCH ×2 (08:22→21:29)
--- NOTE | 2017-11-04 11:28 | Nephrology Progress Note ---
Nephrology Progress Note Date of Service Nov 04, 2017. Chief Complaint ESRD Subjective Mrs. Santigao was seen and examined in her hospital room this morning. She continues to experience CORREA and has a nonproductive cough. She reports that her bronchoscopy this morning has been cancelled. Review of Systems Constitutional: No fever Cardiovascular: No chest pain Respiratory: + dyspnea on exertion Abdomen: No pain, No nausea, No vomiting Extremities: No leg edema A complete review of systems was performed. Pertinent positives are noted above. All other systems are negative. Vital Signs Last 8 Hrs Date Time Temp Pulse Resp B/P (MAP) Pulse Ox O2 Delivery O2 Flow Rate FiO2 11/04/17 11:11 81 18 96 Nasal Cannula 2.0 11/04/17 08:00 96 Nasal Cannula 2.0 11/04/17 07:13 36.6 70 18 110/67 (81) 96 11/04/17 07:01 74 20 92 Nasal Cannula 2.0 Last Recorded Weight Weight (Kilograms): 83.500 Physical Exam General Appearance: + mild distress (significant CORREA) Head: normocephalic, atraumatic Eyes: PERRL, EOMI Neck: no adenopathy Respiratory/Chest: + rhonchi, + wheezing Cardiovascular: regular rate, rhythm Abdomen/GI: normal bowel sounds, non tender, soft Extremities/Musculoskelatal: no pedal edema, + pertinent finding (AVF + bruit) Neurologic/Psych: alert, oriented x 3 Family History FH: HTN (hypertension) Hypertension Social History Smoking Status: Never smoker Drug Use: none Marital Status: Housing Status: lives with family Occupation: retired . Retired. Never a smoker Laboratory Results Past 24 Hours 11/04/17 07:09 Red Blood Count 3.01, Mean Corpuscular Volume 95.3, Mean Corpuscular Hemoglobin 31.6, Mean Corpuscular Hemoglobin Concent 33.1, Mean Platelet Volume 9.8, Neutrophils (%) (Auto) 87.9, Lymphocytes (%) (Auto) 8.5, Monocytes (%) (Auto) 3.0, Eosinophils (%) (Auto) 0.4, Basophils (%) (Auto) 0.0, Neutrophils # (Auto) 4.96, Lymphocytes # (Auto) 0.48, Monocytes # (Auto) 0.17, Eosinophils # (Auto) 0.02, Basophils # (Auto) 0.00 11/04/17 07:09 Test 11/03/17 11:29 11/03/17 12:31 11/03/17 14:29 11/03/17 16:55 Bedside Glucose 173 mg/dl (70-90) 162 mg/dl (70-90) Prothrombin Time 11.4 SECONDS (9.0-12.0) Prothromb Time International Ratio 1.1 (0.9-1.1) Activated Partial Thromboplast Time 26.1 SECONDS (21.0-31.0) Partial Thromboplastin Ratio 1.0 Influenza Type A Antigen Neg for Influ A (NEG) Influenza Type B Antigen Neg for Influ B (NEG) Test 11/03/17 20:29 11/04/17 07:09 11/04/17 07:36 11/04/17 08:27 Bedside Glucose 324 mg/dl (70-90) 298 mg/dl (70-90) White Blood Count 5.64 K/uL (4.8-10.8) Red Blood Count 3.01 M/uL (4.2-5.4) Hemoglobin 9.5 g/dL (12.0-16.0) Hematocrit 28.7 % (37-47) Mean Corpuscular Volume 95.3 fL (80-100) Mean Corpuscular Hemoglobin 31.6 pg (25-34) Mean Corpuscular Hemoglobin Concent 33.1 g/dl (32-36) Platelet Count 151 K/uL (130-400) Mean Platelet Volume 9.8 fL (7.4-10.4) Neutrophils (%) (Auto) 87.9 % Lymphocytes (%) (Auto) 8.5 % Monocytes (%) (Auto) 3.0 % Eosinophils (%) (Auto) 0.4 % Basophils (%) (Auto) 0.0 % Neutrophils # (Auto) 4.96 K/uL (1.4-6.5) Lymphocytes # (Auto) 0.48 K/uL (1.2-3.4) Monocytes # (Auto) 0.17 K/uL (0.11-0.59) Eosinophils # (Auto) 0.02 K/uL (0-0.5) Basophils # (Auto) 0.00 K/uL (0-0.2) RDW Standard Deviation 62.2 fL (36.4-46.3) RDW Coefficient of Variation 18.1 % (11.5-14.5) Immature Granulocyte % (Auto) 0.2 % Immature Granulocyte # (Auto) 0.01 K/uL (0.00-0.02) Anion Gap 10.0 mmol/L (3-11) Est Creatinine Clear Calc Drug Dose 10.7 ml/min Estimated GFR () 9.5 Estimated GFR (Non- 8.2 BUN/Creatinine Ratio 11.6 (10-20) Calcium Level 8.6 mg/dl (8.5-10.1) Magnesium Level 2.4 mg/dl (1.8-2.4) Arterial Blood pH 7.37 (7.35-7.45) Arterial Blood Partial Pressure CO2 46 mmHg (35-46) Arterial Blood Partial Pressure O2 69 mm/Hg (80-95) Arterial Blood HCO3 26 mmol/L (19-24) Arterial Blood Oxygen Saturation 90.9 % (90-95) Arterial Blood Base Excess 0.6 mEq/L (-9-1.8) Arterial Blood Gas Delivery 2 L Jose Test POS (POS) Date/Time Source Procedure Growth Status 11/03/17 14:29 Nasal MRSA DNA Surveillance Screen - Final Specimen Negative for MRSA by DNA Probe Complete Allergies Coded Allergies: Hydralazine (Verified Allergy, Intermediate, rash, 10/30/17) Isosorbide Nitrate (Verified Allergy, Unknown, ITCHING, 10/30/17) EZE Inhibitors (Verified Adverse Reaction, Unknown, DUE TO CKD, 10/30/17) Medications Current Inpatient Medications Medications (Trade) Dose Ordered Sig/Tu Route Start Time Stop Time Status Last Admin Dose Admin Acetaminophen (Tylenol Tab) 650 mg Q4H PRN PO 11/03/17 10:15 12/03/17 10:14 Polyethylene (Miralax Powder Packet) 17 gm DAILY PRN PO 11/03/17 10:15 12/03/17 10:14 Ondansetron HCl (Zofran Inj) 4 mg Q6H PRN IV 11/03/17 10:15 12/03/17 10:14 Calcium Acetate (Phoslo Cap) 667 mg BIDM PO 11/03/17 17:00 12/03/17 16:59 11/04/17 07:43 667 MG Carvedilol (Coreg Tab) 25 mg BID PO 11/03/17 21:00 12/03/17 20:59 11/04/17 07:44 25 MG Insulin Glargine (Lantus Solostar Pen) 13 units BID SC 11/03/17 21:00 12/03/17 20:59 11/04/17 08:22 13 UNITS Tiotropium [place] (Spiriva Handihaler Inhaler) 1 puff DAILY INH 11/04/17 09:00 12/04/17 08:59 11/04/17 07:45 1 PUFF Miscellaneous Information (Order Awaiting Action) 1 ea QS N/A 11/03/17 16:00 12/03/17 15:59 Albuterol/ Ipratropium (Duoneb) 3 ml QIDR INH 11/03/17 12:00 12/03/17 11:59 11/04/17 11:11 3 ML Methylprednisolone Sodium Succinate 40 mg/Syringe 0.64 ml @ 1.5 mls/min Q8H IV 11/03/17 12:00 12/03/17 11:59 11/04/17 03:31 1.5 MLS/MIN Formoterol Fumarate (Perforomist 20MCG/2ML Neb Soln) 20 mcg BIDR INH 11/03/17 20:00 12/03/17 19:59 11/04/17 07:01 20 MCG Albuterol/ Ipratropium (Duoneb) 3 ml Q2H PRN INH 11/03/17 11:00 12/03/17 10:59 11/03/17 23:06 3 ML Insulin Aspart (novoLOG ASPART) SLIDING SCALE PARAMETER ACHS SC 11/03/17 11:30 12/03/17 11:29 11/04/17 08:21 6 UNITS Guaifenesin (Mucinex Contr Rel Tab) 1,200 mg Q12 PO 11/03/17 21:00 12/03/17 20:59 11/04/17 07:44 1,200 MG Glucose (Glucose 40% Gel) 15-30 GRAMS 15 GRAMS... UD PRN PO 11/03/17 11:30 12/03/17 11:29 Glucose (Glucose Chew Tab) 4-8 Tablets 4 Tabl... UD PRN PO 11/03/17 11:30 12/03/17 11:29 Dextrose (Dextrose 50% 50ML Syringe) 25-50ML OF 50% DW IV FOR... UD PRN IV 11/03/17 11:30 12/03/17 11:29 Glucagon (Glucagon Inj) 1 mg UD PRN SQ 11/03/17 11:30 12/03/17 11:29 Levofloxacin (Consult) 1 ea UD PRN N/A 11/03/17 11:30 12/03/17 11:29 Heparin Sodium (Porcine) (Heparin Sq 5000 Unit/0.5ml) 5,000 unit Q12 SQ 11/03/17 21:00 12/03/17 20:59 11/04/17 08:22 5,000 UNIT Levofloxacin 500 mg/Prmx 100 ml @ 100 mls/hr Q48H IV 11/05/17 12:00 11/10/17 11:59 Dornase Conor (Pulmozyme Inhalation Soln 2.5ml Amp) 2.5 ml BIDR INH 11/03/17 20:00 12/03/17 19:59 Dextromethorphan Polymer Complex (Delsym Susp) 30 mg Q8H PRN PO 11/03/17 21:30 12/03/17 21:29 11/03/17 21:50 30 MG Menthol (Nice Keila) 1 keila PRN PRN KEILA 11/03/17 21:45 12/03/17 21:44 11/03/17 21:49 1 KEILA Impression (1) ESRD (end stage renal disease) on dialysis (2) Bilateral pneumonia (3) COPD (chronic obstructive pulmonary disease) (4) Lung mass Recommendations END STAGE RENAL DISEASE: -- HD today. Orders have been entered into the EMR and HD RN notified. -- Protect L arm AVF -- Renal diet HYPERTENSION: -- Blood pressure is well controlled. Continue Carvedilol ANEMIA: -- Stable. Appropriate. on VITALY as outpatient PULMONARY: -- Bilateral pulmonary infiltrates and 2.5 cm ERICH lesion. Await bronchoscopy results and Pulmonology recommendations
--- NOTE | 2017-11-04 11:37 | CARDIOLOGY CONSULTATION ---
DATE OF CONSULTATION: 11/04/2017 REFERRING PHYSICIAN: Dr. Crowe, Dr. Marie. INDICATIONS: Obstructive lung disease, dyspnea. HISTORY OF PRESENT ILLNESS: The patient is a complex 67-year-old female whose past history has been reviewed and is notable for: 1. History of past nonischemic cardiomyopathy, EF as low as 35% on past echocardiograms with improved LV function by most recent study of 2016. 2. Nonobstructive coronary artery disease by cardiac catheterization in 2013 with 70% distal LAD stenosis and no other high-grade obstruction. 3. Chronic obstructive lung disease with obstructive sleep apnea. 4. Chronic kidney disease, dialysis dependent. 5. Hypertension. 6. History of peripheral neuropathy. The patient seen now in referral. Her clinical history is notable for hospitalization in 09/2017 with an acute respiratory decline secondary to influenza and associated COPD exacerbation. Symptoms have not specifically resolved since hospitalization and she was referred for inpatient management with antibiotic therapies and corticosteroids. She notes clinical improvement over the past 24 hours since admission. Notes no fevers or chills. Cough is still present but slightly more productive and improved since admission. She continues to be faithful to dialysis 3 days per week, Thursday, Thursday, Thursday, feels "dry" with overall weight recently trending downward. She has been using oxygen consistently at home, though order is for as needed. She notes no chest pains, notes no tachypalpitations, notes no syncope, notes no bleeding difficulties, notes no melena or hematochezia that she has been aware of. Does have multiple skin excoriations which she attributes to anxiety, nerves and possible medication issues. Does note specifically difficulty with lying down for procedures. She is referred for consideration of right heart catheterization as well as ongoing cardiac management. She is reluctant to consider any invasive procedures for the time being. ALLERGIES: EZE INHIBITORS, HYDRALAZINE AND ISOSORBIDE NITRATE. MEDICATIONS: Prior to hospitalization were Tessalon Perles, calcium acetate, carvedilol 25 mg twice per day, home O2 two liters p.r.n., hydrocodone p.r.n. pain, insulin aspartame and glargine, Dulera, Spiriva and vitamin B complex. PAST SURGICAL HISTORY: Notable for right 3rd toe amputation for osteomyelitis, history of AV fistula formation. FAMILY HISTORY: Positive for hypertension. SOCIAL HISTORY: The patient is a nonsmoker, nondrinker. PHYSICAL EXAMINATION: VITAL SIGNS: Heart rate 70, blood pressure is 110/67, O2 saturation is 96% on 2 liters nasal cannula. HEENT: Normocephalic and atraumatic. NECK: Thick. There is no distinct jugular venous distention. LUNGS: Reveal coarse wheezes and rhonchi at the bases. CARDIOVASCULAR: Regular with normal S1 and S2 and distant heart sounds. There is no audible murmur. PMI is nondisplaced. ABDOMEN: Soft with mild distention. EXTREMITIES: Without cyanosis or clubbing. There is a functioning fistula in the left arm. NEUROLOGIC: The patient is alert and answering questions appropriately. DATA: Reviewed. White cell count is 5.6, hemoglobin is 9.5, hematocrit is 28.7. Sodium is 126, potassium is 5.5, chloride is 89, bicarb is 27, BUN is 57, creatinine is 4.9. EKG on 09/30/2017 demonstrates sinus rhythm with left ventricular hypertrophy and strain pattern. IMPRESSION: A 67-year-old female whose history is complex, includes a history of nonischemic cardiomyopathy with improved left ventricular systolic function, past diastolic heart failure, obstructive lung disease, O2 dependent, with severe obstruction by pulmonary function testing, presents now with exacerbation of pulmonary issues possibly incited by influenza infection in September. She is referred for ongoing cardiac management and to consider right heart catheterization. Current examination does not suggest significant volume overload and management of volume status has been maintained through our chronic dialysis program, the patient is anticipating dialysis today. PLAN: We will review echocardiogram. Keep the patient n.p.o. after midnight for consideration of right heart catheterization, though the patient currently does not wish to undergo procedure and notes it would be difficult to lie flat if indicated. We will discuss with pulmonology management. Continue current cardiac medications, predominantly carvedilol 25 mg twice per day. The patient appears to be improving with the combination of corticosteroids and antibiotic therapies.
[2017-11-04] MEDS ORDERED: NURSING VERBAL MED ORDER ONE (12:15)
[2017-11-04] MEDS ORDERED: INSULIN GLARGINE SOLOSTAR 100 UNITS/ML 3 ML PEN SC ONE (12:15)
--- NOTE | 2017-11-04 12:33 | Hospitalist Progress Note ---
Hospitalist Progress Note Date of Service Nov 04, 2017. Subjective Pt evaluation today including: conversation w/ patient, physical exam, lab review, review of studies, review of inpatient medication list Voiding: no voiding problems Patient resting in bed. Feeling well this AM. +non-productive cough. States she has been here 5 times since influenza in June due to SOB. Eating and drinking OK. Patient denies any fever, chills, sweats, lightheadedness, dizziness, vision changes, CP, palpitations, edema, wheezing, abdominal pain, nausea, vomiting, diarrhea, urinary symptoms, melena, numbness/tingling, weakness, muscle/joint pain, anxiety/depression, active bleeding, or new skin discoloration/changes. Medications Current Inpatient Medications Medications (Trade) Dose Ordered Sig/Tu Route Start Time Stop Time Status Last Admin Dose Admin Acetaminophen (Tylenol Tab) 650 mg Q4H PRN PO 11/03/17 10:15 12/03/17 10:14 Polyethylene (Miralax Powder Packet) 17 gm DAILY PRN PO 11/03/17 10:15 12/03/17 10:14 Ondansetron HCl (Zofran Inj) 4 mg Q6H PRN IV 11/03/17 10:15 12/03/17 10:14 Calcium Acetate (Phoslo Cap) 667 mg BIDM PO 11/03/17 17:00 12/03/17 16:59 11/04/17 07:43 667 MG Carvedilol (Coreg Tab) 25 mg BID PO 11/03/17 21:00 12/03/17 20:59 11/04/17 07:44 25 MG Insulin Glargine (Lantus Solostar Pen) 13 units BID SC 11/03/17 21:00 12/03/17 20:59 11/04/17 08:22 13 UNITS Tiotropium [place] (Spiriva Handihaler Inhaler) 1 puff DAILY INH 11/04/17 09:00 12/04/17 08:59 11/04/17 07:45 1 PUFF Miscellaneous Information (Order Awaiting Action) 1 ea QS N/A 11/03/17 16:00 12/03/17 15:59 Albuterol/ Ipratropium (Duoneb) 3 ml QIDR INH 11/03/17 12:00 12/03/17 11:59 3/21/18 11:11 3 ML Methylprednisolone Sodium Succinate 40 mg/Syringe 0.64 ml @ 1.5 mls/min Q8H IV 11/03/17 12:00 12/03/17 11:59 11/04/17 11:57 1.5 MLS/MIN Formoterol Fumarate (Perforomist 20MCG/2ML Neb Soln) 20 mcg BIDR INH 11/03/17 20:00 12/03/17 19:59 11/04/17 07:01 20 MCG Albuterol/ Ipratropium (Duoneb) 3 ml Q2H PRN INH 11/03/17 11:00 12/03/17 10:59 11/03/17 23:06 3 ML Insulin Aspart (novoLOG ASPART) SLIDING SCALE PARAMETER ACHS SC 11/03/17 11:30 12/03/17 11:29 11/04/17 11:56 13 UNITS Guaifenesin (Mucinex Contr Rel Tab) 1,200 mg Q12 PO 11/03/17 21:00 12/03/17 20:59 11/04/17 07:44 1,200 MG Glucose (Glucose 40% Gel) 15-30 GRAMS 15 GRAMS... UD PRN PO 11/03/17 11:30 12/03/17 11:29 Glucose (Glucose Chew Tab) 4-8 Tablets 4 Tabl... UD PRN PO 11/03/17 11:30 12/03/17 11:29 Dextrose (Dextrose 50% 50ML Syringe) 25-50ML OF 50% DW IV FOR... UD PRN IV 11/03/17 11:30 12/03/17 11:29 Glucagon (Glucagon Inj) 1 mg UD PRN SQ 11/03/17 11:30 12/03/17 11:29 Levofloxacin (Consult) 1 ea UD PRN N/A 11/03/17 11:30 12/03/17 11:29 Heparin Sodium (Porcine) (Heparin Sq 5000 Unit/0.5ml) 5,000 unit Q12 SQ 11/03/17 21:00 12/03/17 20:59 11/04/17 08:22 5,000 UNIT Levofloxacin 500 mg/Prmx 100 ml @ 100 mls/hr Q48H IV 11/05/17 12:00 11/10/17 11:59 Dornase Conor (Pulmozyme Inhalation Soln 2.5ml Amp) 2.5 ml BIDR INH 11/03/17 20:00 12/03/17 19:59 Dextromethorphan Polymer Complex (Delsym Susp) 30 mg Q8H PRN PO 11/03/17 21:30 12/03/17 21:29 11/03/17 21:50 30 MG Menthol (Nice Keila) 1 kiela PRN PRN KEILA 11/03/17 21:45 12/03/17 21:44 11/03/17 21:49 1 KEILA Insulin Glargine (Lantus Solostar Pen) 6 units TODAY@1215 ONCE SC 11/04/17 12:15 11/04/17 12:16 Objective Vital Signs Date Time Temp Pulse Resp B/P (MAP) Pulse Ox O2 Delivery O2 Flow Rate FiO2 11/04/17 11:11 81 18 96 Nasal Cannula 2.0 11/04/17 08:00 96 Nasal Cannula 2.0 11/04/17 07:13 36.6 70 18 110/67 (81) 96 11/04/17 07:01 74 20 92 Nasal Cannula 2.0 11/04/17 00:00 90 Nasal Cannula 2.0 11/03/17 23:08 74 22 90 Nasal Cannula 2.0 11/03/17 23:07 36.4 94 20 119/58 (78) 90 2.0 11/03/17 21:03 103 151/69 (96) 11/03/17 20:05 98 18 92 Nasal Cannula 2.0 11/03/17 16:00 Nasal Cannula 2.0 11/03/17 15:52 36.9 90 20 119/62 (81) 93 11/03/17 15:39 36.9 102 16 106/58 93 Nasal Cannula 2.0 11/03/17 15:33 90 16 95 Nasal Cannula 2.0 Physical Exam General Appearance: no apparent distress, + obese, + pertinent finding (O2 NC) Eyes: normal inspection, PERRL ENT: hearing grossly normal Neck: supple Respiratory/Chest: lungs clear, no respiratory distress, no accessory muscle use, + decreased breath sounds (throughout, poor inspiratory effort due to coughing fit) Cardiovascular: regular rate, rhythm Abdomen: normal bowel sounds, non tender, soft Extremities: no pedal edema, no calf tenderness Neurologic/Psychiatric: alert, normal mood/affect, oriented x 3 Skin: normal color, warm/dry, no rash Laboratory Results Last 24 Hours Test 11/03/17 12:31 11/03/17 14:29 11/03/17 16:55 11/03/17 20:29 Prothrombin Time 11.4 SECONDS Prothromb Time International Ratio 1.1 Activated Partial Thromboplast Time 26.1 SECONDS Partial Thromboplastin Ratio 1.0 Influenza Type A Antigen Neg for Influ A Influenza Type B Antigen Neg for Influ B Bedside Glucose 162 mg/dl 324 mg/dl Test 11/04/17 07:09 11/04/17 07:36 11/04/17 08:27 11/04/17 11:23 White Blood Count 5.64 K/uL Red Blood Count 3.01 M/uL Hemoglobin 9.5 g/dL Hematocrit 28.7 % Mean Corpuscular Volume 95.3 fL Mean Corpuscular Hemoglobin 31.6 pg Mean Corpuscular Hemoglobin Concent 33.1 g/dl Platelet Count 151 K/uL Mean Platelet Volume 9.8 fL Neutrophils (%) (Auto) 87.9 % Lymphocytes (%) (Auto) 8.5 % Monocytes (%) (Auto) 3.0 % Eosinophils (%) (Auto) 0.4 % Basophils (%) (Auto) 0.0 % Neutrophils # (Auto) 4.96 K/uL Lymphocytes # (Auto) 0.48 K/uL Monocytes # (Auto) 0.17 K/uL Eosinophils # (Auto) 0.02 K/uL Basophils # (Auto) 0.00 K/uL RDW Standard Deviation 62.2 fL RDW Coefficient of Variation 18.1 % Immature Granulocyte % (Auto) 0.2 % Immature Granulocyte # (Auto) 0.01 K/uL Sodium Level 126 mmol/L Potassium Level 5.5 mmol/L Chloride Level 89 mmol/L Carbon Dioxide Level 27 mmol/L Anion Gap 10.0 mmol/L Blood Urea Nitrogen 57 mg/dl Creatinine 4.99 mg/dl Est Creatinine Clear Calc Drug Dose 10.7 ml/min Estimated GFR () 9.5 Estimated GFR (Non- 8.2 BUN/Creatinine Ratio 11.6 Random Glucose 297 mg/dl Calcium Level 8.6 mg/dl Magnesium Level 2.4 mg/dl Bedside Glucose 298 mg/dl 398 mg/dl Arterial Blood pH 7.37 Arterial Blood Partial Pressure CO2 46 mmHg Arterial Blood Partial Pressure O2 69 mm/Hg Arterial Blood HCO3 26 mmol/L Arterial Blood Oxygen Saturation 90.9 % Arterial Blood Base Excess 0.6 mEq/L Arterial Blood Gas Delivery 2 L Jose Test POS Assessment and Plan 67-year-old female with chronic respiratory failure with hypoxia was failed outpatient treatment and has concern for persistent infectious process in her lung/pneumonia. Dyspnea, chronic respiratory failure w/ hypoxemia, h/o COPD, h/o asthma, ?STEPHEN vs OHV: - Admitted to med/surg - Levaquin 750 mg daily- pulmonary does not think infectious, discontinue - IV Solu Medrol 40 mg TID - DuoNebs QID and PRN for SOB/wheezing - Delsym PRN for cough, Mucinex BID - Continue home inhalers- Dulera and Spiriva - Overnight pulse ox ordered - Influenza negative; MRSA swab negative - Pulmonary consulted- believe RHC indicated - Cardiology consulted- RHC possibly tomorrow, ECHO pending, continue current management ESRD on HD MWF: - Continue PhosLo and Nephrocaps - Consult nephrology for dialysis management T2DM- hgbA1c 8.4% w/ hyperglycemia secondary to IV Solu Medrol: - Increase Lantus 13 u BID to 18 u BID while receiving steroids- NPO after midnight, will give half dose tomorrow AM - BSG ACHS and ISS- adjust sliding scale to CF 20, CHO ratio 1:6 (pharmacy recommendations based off last inpatient stay) Diastolic CHF- STABLE: - Continue Coreg 25 mg BID - ECHO 10/2015- preserved EF, grade II diastolic dysfunction, LVH- repeat ECHO pending GI prophylaxis: Protonix daily DVT prophylaxis: Heparin BID Code status: LEVEL I, FULL Dispo: From home. lives w/ son- PT/OT and CM consulted
[2017-11-04] MEDS: DEXTROMETHORPHAN POLYMR COMPLX 30 MG/5 ML UDP PO PRN (21:31)
[2017-11-05] VITALS (10 sets, daily range): BP systolic 102–121; BP diastolic 61–81; PULSE 62–88; TEMP 36.3–36.6; O2SAT 84–98
[2017-11-05] MEDS: METHYLPREDNISOLONE IV 40 MG in SYRINGE 0 ML IV SCH ×3 (03:21→21:04)
[2017-11-05] MEDS: ONDANSETRON INJ 2 MG/ML 2 ML VIAL IV PRN (04:17)
[2017-11-05] MEDS: DORNASE ALFA 2.5 ML AMP INH SCH ×2 (07:15→19:38)
[2017-11-05] MEDS: ALBUT/IPRATROP 3MG/0.5MG NEB 3 ML VIAL INH SCH ×5 (07:15→23:50)
[2017-11-05] MEDS: FORMOTEROL FUMA NEBULIZER SOLN 20 MCG/2 ML VIAL INH SCH ×2 (07:15→19:38)
[2017-11-05] MEDS ORDERED: PERFLUTREN LIPID MICROSPHERE (DEFINITY) IV ONE (08:27)
[2017-11-05 08:29] LABS: CALCIUM 8.2 mg/dl (8.5-10.1); CREATININE 2.93 mg/dl (0.60-1.20); POTASSIUM 4.5 mmol/L (3.5-5.1)
[2017-11-05] MEDS: GUAIFENESIN 600 MG TABCR PO SCH ×2 (08:41→21:00)
[2017-11-05] MEDS: CARVEDILOL 25 MG TAB PO SCH (08:42)
[2017-11-05] MEDS: CALCIUM ACETATE 667MG GELCAP PO SCH ×2 (08:42→17:10)
[2017-11-05] MEDS: TIOTROPIUM BROMIDE 5 PUFF/90 MCG INH INH SCH (08:42)
[2017-11-05] MEDS: PANTOprazole SOD 40 MG TAB PO SCH (08:43)
[2017-11-05] MEDS: HEPARIN SOD 5000 UNIT/0.5 ML CARP SQ SCH ×2 (08:44→21:00)
[2017-11-05] MEDS: INSULIN GLARGINE SOLOSTAR 100 UNITS/ML 3 ML PEN SC SCH ×2 (08:47→21:16)
[2017-11-05] MEDS: INSULIN ASPART 100 UNITS/ML 3 ML PEN SC SCH ×4 (08:48→21:15)
--- NOTE | 2017-11-05 11:15 | Nephrology Progress Note ---
Nephrology Progress Note Date of Service Nov 05, 2017. Chief Complaint ESRD Subjective Mrs. Santiago was seen & examined in her hospital room this morning. She complains of persistent cough and CORREA. Echocardiogram was completed this am. Mrs. Santiago was dialyzed yesterday for 3 hours 30 min (refused last 15 min tx) w / 2 L UF. Review of Systems Constitutional: No fever Cardiovascular: No chest pain Respiratory: + dyspnea on exertion, No dyspnea at rest Abdomen: No pain, No nausea, No vomiting Extremities: No leg edema A complete review of systems was performed. Pertinent positives are noted above. All other systems are negative. Vital Signs Last 8 Hrs Date Time Temp Pulse Resp B/P (MAP) Pulse Ox O2 Delivery O2 Flow Rate FiO2 11/05/17 08:00 Nasal Cannula 2.0 11/05/17 07:17 82 18 95 Nasal Cannula 2.0 11/05/17 07:06 36.5 67 18 103/62 (76) 98 2.0 11/05/17 05:47 88 18 84 Room Air Last Recorded Weight Weight (Kilograms): 83.200 Physical Exam General Appearance: no apparent distress Head: normocephalic, atraumatic Eyes: PERRL, EOMI Neck: no adenopathy Respiratory/Chest: + rales, + wheezing Cardiovascular: regular rate, rhythm Abdomen/GI: normal bowel sounds, non tender, soft Extremities/Musculoskelatal: + pertinent finding (trace pretibial edema. AVF + bruit) Neurologic/Psych: alert, oriented x 3 Family History FH: HTN (hypertension) Hypertension Social History Smoking Status: Never smoker Drug Use: none Marital Status: Housing Status: lives with family Occupation: retired . Retired. Never a smoker Laboratory Results Past 24 Hours 11/05/17 07:30 Test 11/04/17 11:23 11/04/17 19:49 11/05/17 04:10 11/05/17 07:28 Bedside Glucose 398 mg/dl (70-90) 135 mg/dl (70-90) 246 mg/dl (70-90) 263 mg/dl (70-90) Test 11/05/17 07:30 Anion Gap 9.0 mmol/L (3-11) Est Creatinine Clear Calc Drug Dose 18.1 ml/min Estimated GFR () 18.1 Estimated GFR (Non- 15.7 BUN/Creatinine Ratio 12.3 (10-20) Calcium Level 8.2 mg/dl (8.5-10.1) Hepatitis B Surface Antigen NEG (NEG) Hepatitis B Surface Antibody POS Allergies Coded Allergies: Hydralazine (Verified Allergy, Intermediate, rash, 10/30/17) Isosorbide Nitrate (Verified Allergy, Unknown, ITCHING, 10/30/17) EZE Inhibitors (Verified Adverse Reaction, Unknown, DUE TO CKD, 10/30/17) Medications Current Inpatient Medications Medications (Trade) Dose Ordered Sig/Tu Route Start Time Stop Time Status Last Admin Dose Admin Acetaminophen (Tylenol Tab) 650 mg Q4H PRN PO 11/03/17 10:15 12/03/17 10:14 Polyethylene (Miralax Powder Packet) 17 gm DAILY PRN PO 11/03/17 10:15 12/03/17 10:14 Ondansetron HCl (Zofran Inj) 4 mg Q6H PRN IV 11/03/17 10:15 12/03/17 10:14 11/05/17 04:17 4 MG Calcium Acetate (Phoslo Cap) 667 mg BIDM PO 11/03/17 17:00 12/03/17 16:59 11/05/17 08:42 667 MG Tiotropium [place] (Spiriva Handihaler Inhaler) 1 puff DAILY INH 11/04/17 09:00 12/04/17 08:59 11/05/17 08:42 1 PUFF Miscellaneous Information (Order Awaiting Action) 1 ea QS N/A 11/03/17 16:00 12/03/17 15:59 Albuterol/ Ipratropium (Duoneb) 3 ml QIDR INH 11/03/17 12:00 12/03/17 11:59 11/05/17 07:15 3 ML Methylprednisolone Sodium Succinate 40 mg/Syringe 0.64 ml @ 1.5 mls/min Q8H IV 11/03/17 12:00 12/03/17 11:59 11/05/17 03:21 1.5 MLS/MIN Formoterol Fumarate (Perforomist 20MCG/2ML Neb Soln) 20 mcg BIDR INH 11/03/17 20:00 12/03/17 19:59 11/05/17 07:15 20 MCG Albuterol/ Ipratropium (Duoneb) 3 ml Q2H PRN INH 11/03/17 11:00 12/03/17 10:59 11/03/17 23:06 3 ML Insulin Aspart (novoLOG ASPART) SLIDING SCALE PARAMETER ACHS SC 11/03/17 11:30 12/03/17 11:29 11/05/17 08:48 6 UNITS Guaifenesin (Mucinex Contr Rel Tab) 1,200 mg Q12 PO 11/03/17 21:00 12/03/17 20:59 11/04/17 07:44 1,200 MG Glucose (Glucose 40% Gel) 15-30 GRAMS 15 GRAMS... UD PRN PO 11/03/17 11:30 12/03/17 11:29 Glucose (Glucose Chew Tab) 4-8 Tablets 4 Tabl... UD PRN PO 11/03/17 11:30 12/03/17 11:29 Dextrose (Dextrose 50% 50ML Syringe) 25-50ML OF 50% DW IV FOR... UD PRN IV 11/03/17 11:30 12/03/17 11:29 Glucagon (Glucagon Inj) 1 mg UD PRN SQ 11/03/17 11:30 12/03/17 11:29 Heparin Sodium (Porcine) (Heparin Sq 5000 Unit/0.5ml) 5,000 unit Q12 SQ 11/03/17 21:00 12/03/17 20:59 11/04/17 21:29 5,000 UNIT Dornase Conor (Pulmozyme Inhalation Soln 2.5ml Amp) 2.5 ml BIDR INH 11/03/17 20:00 12/03/17 19:59 11/05/17 07:15 2.5 ML Dextromethorphan Polymer Complex (Delsym Susp) 30 mg Q8H PRN PO 11/03/17 21:30 12/03/17 21:29 11/04/17 21:31 30 MG Menthol (Nice Keila) 1 keila PRN PRN KEILA 11/03/17 21:45 12/03/17 21:44 11/03/17 21:49 1 KEILA Insulin Glargine (Lantus Solostar Pen) 18 units BID SC 11/04/17 21:00 12/03/17 20:59 11/05/17 08:47 9 UNITS Pantoprazole Sodium (Protonix Tab) 40 mg QAM PO 11/05/17 09:00 11/08/17 09:01 11/05/17 08:43 40 MG Carvedilol (Coreg Tab) 12.5 mg BID PO 11/05/17 21:00 12/03/17 20:59 Impression (1) ESRD (end stage renal disease) on dialysis (2) Bilateral pneumonia (3) COPD (chronic obstructive pulmonary disease) (4) Lung mass Recommendations END STAGE RENAL DISEASE: -- Spoke w/ Dr. Burgos this am. Patient has significant drop in LVEF on echocardiogram. R & L heart cath scheduled for Thursday. requested w/ HD tomorrow to ensure patient can lie flat for procedure Thursday. -- Protect L arm AVF -- Renal diet HYPERTENSION: -- Blood pressure is well controlled. Continue Carvedilol ANEMIA: -- Stable. Appropriate. on VITALY as outpatient PULMONARY: -- Bilateral pulmonary infiltrates and 2.5 cm ERICH lesion. Await bronchoscopy results and Pulmonology recommendations
--- NOTE | 2017-11-05 11:32 | CARDIOLOGY PROGRESS NOTE ---
DATE: 11/05/2017 CARDIOLOGY CONSULTATION FOLLOWUP NOTE The patient was seen and examined. Chart, medications, and telemetry were reviewed. SUBJECTIVE: The patient feels more breathless today, she attributes at least in part due to indigestion and heartburn when lying flat. Notes no productive cough. Notes no chest pain. Notes no dizziness or lightheadedness. Weights have been stable. OBJECTIVE: VITAL SIGNS: Heart rate is 67, blood pressure is 103/62, and O2 saturation is 95% on 2 liters nasal cannula. HEENT: Normocephalic and atraumatic. NECK: Thick. There is no distinct jugular venous distention. LUNGS: Reveal diminished breath sounds diffusely, scattered crackles basilar. CARDIOVASCULAR: Regular with apical heave. There is no diastolic murmur. There is no S3 gallop. ABDOMEN: Soft and nontender. EXTREMITIES: Without cyanosis or clubbing. There is mild 1+ lower extremity edema. LABORATORY DATA: Today, sodium is 131, potassium is 4.5, chloride is 97, bicarbonate is 25, BUN is 36, and creatinine is 2.9. Blood gas yesterday morning pH of 7.37, pCO2 of 46, and pO2 of 69 on 2 liters nasal cannula. Nocturnal oximetry demonstrated small areas of desaturation throughout the night. Echocardiogram done this morning demonstrates some diffuse left ventricular dysfunction without distinct segmental feature, EF 20%, moderate mitral and tricuspid insufficiency. Tricuspid valve regurgitant velocity of 2.7 m/sec, not reflective of severe pulmonary hypertension. IMPRESSION: A 67-year-old female with progressive difficulties with respiratory distress and shortness of breath since June of 2016, underlying history of past nonischemic cardiomyopathy, presents now with as described increasing dyspnea, referred for consideration of right heart catheterization. Echocardiogram today demonstrates a substantial decline in overall LV function. Etiology uncertain. Suspect a component of congestive failure as a possible cause of the patient's complaints. Currently, the patient is unable to lie flat for cardiac procedures. Relatively stable hemodynamically. EKG reflects no acute findings. RECOMMENDATIONS: We will discuss with nephrology. I increased dialysis output. Attempt to optimize pulmonary status. If pulmonary status improves, we will refer her for right and left heart catheterization. The patient will be allowed to eat today and likely consider a procedure on Thursday depending on fluid status. We will reduce carvedilol slightly in the evenings to allow for higher blood pressures. Discussed in detail with the patient. She is agreeable and notes specifically that she would be unable to lie flat for the procedure. At this time, we would not consider doing it until she is more comfortable with respiratory status.
[2017-11-05] MEDS ORDERED: LEVOFLOXACIN 500MG / D5W IV SCH (12:00)
--- NOTE | 2017-11-05 12:01 | ECHOCARDIOGRAM REPORT ---
*NOTICE TO RECEIVING CONSTITUTION PARTY AGENCY This information is strictly Confidential and protected under [place] law. [place] law prohibits you from making any further disclosure of this information unless further disclosure is expressly permitted by the written consent of the person to whom it pertains or is authorized by law. A general authorization for the release of medical or other information is not sufficient for this purpose. Hospital accepts no responsibility if the information is made available to any other person, INCLUDING THE PATIENT. Interpretation Summary * Name: RYNE DONIS Study Date: 11/05/2017 07:55 AM BP: 122/72 mmHg * Patient Location: .[id number]\1 HR: 76 * : 1950 (M/d/yyyy) Gender: Female Height: 62 in * Age: 67 yrs Ethnicity: CA Weight: 184 lb * Ordering Physician: Shawn Marie * Referring Physician: Med Escobar * Performed By: Betsey Perez RDCS * * Reason For Study: Pulmonary hypertension * BSA: 1.8 m2 * -- Conclusions -- * The left ventricle is mildly dilated. * There is borderline concentric left ventricular hypertrophy. * There is severe global hypokinesis of the left ventricle. * Ejection Fraction = 20-25%. * Diastolic dysfunction, Grade III (restrictive pattern), consistent with markedly increased left atrial pressure. * There is moderate mitral regurgitation. * There is moderate tricuspid regurgitation. * Doppler findings do not suggest pulmonary hypertension. Procedure Details * A complete two-dimensional transthoracic echocardiogram was performed (2D, M-mode, Doppler and color flow Doppler). * A contrast injection of Definity was performed to improve assessment of LV function. * Contrast was injected into an intravenous site in the right arm. * One vial of Definity ultrasound contrast was diluted in normal saline to a total volume of 10 ml. A total of '2' ml of solution was administered during imaging. * Lot # [id number] of Definity utilized for procedure. * Expiration date 1 OCT 05. * The attending nurse who injected the contrast agent was Miky Sterling RN. Left Ventricle * The left ventricle is mildly dilated. * There is borderline concentric left ventricular hypertrophy. * Ejection Fraction = 20-25%. * There is severe global hypokinesis of the left ventricle. Right Ventricle * The right ventricle is normal in size and function. Atria * The left atrium is mildly dilated. * Right atrial size is normal. * No ASD detected; PFO is not assessed. Mitral Valve * There is mild mitral annular calcification. * Mitral valve leaflets are moderately thickened * There is no mitral valve stenosis. * There is moderate mitral regurgitation. Tricuspid Valve * The tricuspid valve anatomy is normal. * There is no tricuspid stenosis. * There is moderate tricuspid regurgitation. * Doppler findings do not suggest pulmonary hypertension. Aortic Valve * The aortic valve is trileaflet. * Aortic valve sclerosis moderate, without significant aortic valvular stenosis. * No hemodynamically significant valvular aortic stenosis. * No aortic regurgitation is present. Pulmonic Valve * The pulmonic valve is not well visualized. * Trace pulmonic valvular regurgitation. Great Vessels * The aortic root is normal size. Pericardium/Pleural * There is a trivial posterior pericardial effusion Great Vessels * Normal inferior vena cava diameter and respiratory variation suggests normal central venous pressure. Left Ventricular Diastolic Function * Diastolic dysfunction, Grade III (restrictive pattern), consistent with markedly increased left atrial pressure. MMode 2D Measurements and Calculations IVSd 0.98 cm LVIDd 6.2 cm LVIDs 5.2 cm LVPWd 1.2 cm IVS/LVPW 0.79 FS 14.9 % EDV(Teich) 191.0 ml ESV(Teich) 132.0 ml EF(Teich) 30.9 % EDV(cubed) 233.5 ml ESV(cubed) 144.1 ml EF(cubed) 38.3 % LV mass(C)d 296.3 grams LV mass(C)dI 160.6 grams/m\S\2 SV(Teich) 59.0 ml SI(Teich) 32.0 ml/m\S\2 SV(cubed) 89.4 ml SI(cubed) 48.4 ml/m\S\2 Ao root diam 2.1 cm Ao root area 3.4 cm\S\2 ACS 1.8 cm LA dimension 3.8 cm asc Aorta Diam 3.2 cm LA/Ao 1.8 LVOT diam 2.0 cm LVOT area 3.0 cm\S\2 LVAd ap4 44.9 cm\S\2 LVLd ap4 9.6 cm EDV(MOD-sp4) 170.7 ml EDV(sp4-el) 177.9 ml LVAs ap4 36.9 cm\S\2 LVLs ap4 9.4 cm ESV(MOD-sp4) 116.6 ml ESV(sp4-el) 123.1 ml EF(MOD-sp4) 31.7 % EF(sp4-el) 30.8 % LVAd ap2 47.6 cm\S\2 LVLd ap2 9.6 cm EDV(MOD-sp2) 192.5 ml EDV(sp2-el) 199.0 ml LVAs ap2 38.9 cm\S\2 LVLs ap2 9.2 cm ESV(MOD-sp2) 134.3 ml ESV(sp2-el) 139.4 ml EF(MOD-sp2) 30.2 % EF(sp2-el) 30.0 % LVLd %diff 0.43 % EDV(MOD-bp) 182.5 ml LVLs %diff -2.13 % ESV(MOD-bp) 124.1 ml EF(MOD-bp) 32.0 % SV(MOD-sp4) 54.1 ml SI(MOD-sp4) 29.3 ml/m\S\2 SV(MOD-sp2) 58.2 ml SI(MOD-sp2) 31.5 ml/m\S\2 SV(MOD-bp) 58.4 ml SI(MOD-bp) 31.7 ml/m\S\2 SV(sp4-el) 54.8 ml SI(sp4-el) 29.7 ml/m\S\2 SV(sp2-el) 59.7 ml SI(sp2-el) 32.3 ml/m\S\2 Doppler Measurements and Calculations MV E max pam 123.2 cm/sec MV A max pam 107.2 cm/sec MV E/A 1.1 MV dec time 0.19 sec Ao V2 max 129.0 cm/sec Ao max PG 6.7 mmHg Ao max PG (full) 4.7 mmHg RIVER(V,A) 1.6 cm\S\2 RIVER(V,D) 1.6 cm\S\2 LV V1 max PG 2.0 mmHg LV V1 max 69.8 cm/sec MR max pam 438.9 cm/sec MR max PG 77.0 mmHg MR mean pam 340.6 cm/sec MR mean PG 52.5 mmHg MR VTI 176.3 cm PA V2 max 97.7 cm/sec PA max PG 3.8 mmHg PA acc slope 504.0 cm/sec\S\2 PA acc time 0.14 sec PI max pam 196.8 cm/sec PI max PG 15.5 mmHg PI dec slope 154.9 cm/sec\S\2 PI P1/2t 372.1 msec TR max pam 260.7 cm/sec PA pr(Accel) 14.0 mmHg
--- NOTE | 2017-11-05 13:08 | Hospitalist Progress Note ---
Hospitalist Progress Note Date of Service Nov 05, 2017. Subjective Pt evaluation today including: conversation w/ patient, conversation w/ family (at bedside ), physical exam, lab review, review of studies, review of inpatient medication list Voiding: no voiding problems Patient sitting up in bed. Feeling well currently. Had any episode of nausea and indigestion last night. Has not had anything to eat yet today due to NPO status for ?cath today. No cath today- diet advanced. Planning to proceed w/ heart cath hopefully on Thursday if breathing improves. Feels her breathing is improving on IV steroids. +dry cough. Patient denies any fever, chills, sweats, lightheadedness, dizziness, vision changes, CP, palpitations, edema, wheezing, abdominal pain, vomiting, diarrhea, urinary symptoms, melena, numbness/tingling, weakness, muscle/joint pain, anxiety/depression, active bleeding, or new skin discoloration/changes. Medications Current Inpatient Medications Medications (Trade) Dose Ordered Sig/Tu Route Start Time Stop Time Status Last Admin Dose Admin Acetaminophen (Tylenol Tab) 650 mg Q4H PRN PO 11/03/17 10:15 12/03/17 10:14 Polyethylene (Miralax Powder Packet) 17 gm DAILY PRN PO 11/03/17 10:15 12/03/17 10:14 Ondansetron HCl (Zofran Inj) 4 mg Q6H PRN IV 11/03/17 10:15 12/03/17 10:14 11/05/17 04:17 4 MG Calcium Acetate (Phoslo Cap) 667 mg BIDM PO 11/03/17 17:00 12/03/17 16:59 11/05/17 08:42 667 MG Tiotropium [place] (Spiriva Handihaler Inhaler) 1 puff DAILY INH 11/04/17 09:00 12/04/17 08:59 11/05/17 08:42 1 PUFF Miscellaneous Information (Order Awaiting Action) 1 ea QS N/A 11/03/17 16:00 12/03/17 15:59 Albuterol/ Ipratropium (Duoneb) 3 ml QIDR INH 11/03/17 12:00 12/03/17 11:59 11/05/17 07:15 3 ML Methylprednisolone Sodium Succinate 40 mg/Syringe 0.64 ml @ 1.5 mls/min Q8H IV 11/03/17 12:00 12/03/17 11:59 11/05/17 03:21 1.5 MLS/MIN Formoterol Fumarate (Perforomist 20MCG/2ML Neb Soln) 20 mcg BIDR INH 11/03/17 20:00 12/03/17 19:59 11/05/17 07:15 20 MCG Albuterol/ Ipratropium (Duoneb) 3 ml Q2H PRN INH 11/03/17 11:00 12/03/17 10:59 11/03/17 23:06 3 ML Insulin Aspart (novoLOG ASPART) SLIDING SCALE PARAMETER ACHS SC 11/03/17 11:30 12/03/17 11:29 11/05/17 08:48 6 UNITS Guaifenesin (Mucinex Contr Rel Tab) 1,200 mg Q12 PO 11/03/17 21:00 12/03/17 20:59 11/04/17 07:44 1,200 MG Glucose (Glucose 40% Gel) 15-30 GRAMS 15 GRAMS... UD PRN PO 11/03/17 11:30 12/03/17 11:29 Glucose (Glucose Chew Tab) 4-8 Tablets 4 Tabl... UD PRN PO 11/03/17 11:30 12/03/17 11:29 Dextrose (Dextrose 50% 50ML Syringe) 25-50ML OF 50% DW IV FOR... UD PRN IV 11/03/17 11:30 12/03/17 11:29 Glucagon (Glucagon Inj) 1 mg UD PRN SQ 11/03/17 11:30 12/03/17 11:29 Heparin Sodium (Porcine) (Heparin Sq 5000 Unit/0.5ml) 5,000 unit Q12 SQ 11/03/17 21:00 12/03/17 20:59 11/04/17 21:29 5,000 UNIT Dornase Conor (Pulmozyme Inhalation Soln 2.5ml Amp) 2.5 ml BIDR INH 11/03/17 20:00 12/03/17 19:59 11/05/17 07:15 2.5 ML Dextromethorphan Polymer Complex (Delsym Susp) 30 mg Q8H PRN PO 11/03/17 21:30 12/03/17 21:29 11/04/17 21:31 30 MG Menthol (Nice Keila) 1 keila PRN PRN KEILA 11/03/17 21:45 12/03/17 21:44 11/03/17 21:49 1 KEILA Insulin Glargine (Lantus Solostar Pen) 18 units BID SC 11/04/17 21:00 12/03/17 20:59 11/05/17 08:47 9 UNITS Pantoprazole Sodium (Protonix Tab) 40 mg QAM PO 11/05/17 09:00 11/08/17 09:01 11/05/17 08:43 40 MG Carvedilol (Coreg Tab) 12.5 mg BID PO 11/05/17 21:00 12/03/17 20:59 Calcium Carbonate (Tums Chew Tab) 500 mg Q6 PRN PO 11/05/17 11:15 12/05/17 11:14 Heparin Sodium (Porcine) (Heparin Iv Bolus) 2,000 unit ONE IV 11/06/17 06:00 11/06/17 06:01 Heparin Sodium (Porcine) (Heparin Iv Bolus) 500 unit Q1H IV 11/06/17 06:00 11/06/17 07:01 Epoetin Conor (Procrit Inj) 10,000 units ONE ONCE IV. 11/06/17 06:00 11/06/17 06:01 Objective Vital Signs Date Time Temp Pulse Resp B/P (MAP) Pulse Ox O2 Delivery O2 Flow Rate FiO2 11/05/17 08:00 Nasal Cannula 2.0 11/05/17 07:17 82 18 95 Nasal Cannula 2.0 11/05/17 07:06 36.5 67 18 103/62 (76) 98 2.0 11/05/17 05:47 88 18 84 Room Air 11/05/17 00:02 36.6 78 19 112/62 (79) 93 Nasal Cannula 2.0 11/05/17 00:00 Nasal Cannula 2.0 11/04/17 20:09 82 18 94 Nasal Cannula 2.0 11/04/17 19:47 36.5 77 116/58 (77) 11/04/17 19:00 67 109/56 11/04/17 18:45 69 115/57 11/04/17 18:30 72 110/54 11/04/17 18:15 67 110/56 11/04/17 18:00 69 101/58 11/04/17 17:45 65 116/74 11/04/17 17:30 71 115/56 11/04/17 17:18 Nasal Cannula 2.0 11/04/17 17:15 71 116/51 11/04/17 17:00 72 106/55 11/04/17 16:45 73 99/59 11/04/17 16:30 73 98/54 11/04/17 16:15 76 93/54 11/04/17 16:00 76 107/56 11/04/17 15:45 76 114/63 11/04/17 15:32 77 106/59 11/04/17 15:00 37.0 79 119/64 (82) 11/04/17 14:25 36.8 76 18 122/72 (89) 92 2.0 Physical Exam General Appearance: no apparent distress, + obese, + pertinent finding (O2 NC ) Eyes: normal inspection, PERRL ENT: hearing grossly normal Neck: supple Respiratory/Chest: lungs clear, no respiratory distress, no accessory muscle use, + decreased breath sounds (throughout ) Cardiovascular: regular rate, rhythm Abdomen: normal bowel sounds, non tender, soft Extremities: no pedal edema, no calf tenderness Neurologic/Psychiatric: alert, normal mood/affect, oriented x 3 Skin: normal color, warm/dry, no rash Laboratory Results Last 24 Hours Test 11/04/17 19:49 11/05/17 04:10 11/05/17 07:28 11/05/17 07:30 Bedside Glucose 135 mg/dl 246 mg/dl 263 mg/dl Sodium Level 131 mmol/L Potassium Level 4.5 mmol/L Chloride Level 97 mmol/L Carbon Dioxide Level 25 mmol/L Anion Gap 9.0 mmol/L Blood Urea Nitrogen 36 mg/dl Creatinine 2.93 mg/dl Est Creatinine Clear Calc Drug Dose 18.1 ml/min Estimated GFR () 18.1 Estimated GFR (Non- 15.7 BUN/Creatinine Ratio 12.3 Random Glucose 246 mg/dl Calcium Level 8.2 mg/dl Hepatitis B Surface Antigen NEG Hepatitis B Surface Antibody POS Test 11/05/17 11:36 Bedside Glucose 200 mg/dl Assessment and Plan 67-year-old female with chronic respiratory failure with hypoxia was failed outpatient treatment and has concern for persistent infectious process in her lung/pneumonia. Dyspnea, chronic respiratory failure w/ hypoxemia, h/o COPD, h/o asthma, ?STEPHEN vs OHV: - Admitted to med/surg - Levaquin 750 mg daily- pulmonary does not think infectious, discontinued - IV Solu Medrol 40 mg TID- slowly taper, will decrease to BID tomorrow - DuoNebs QID and PRN for SOB/wheezing - Delsym PRN for cough, Mucinex BID - Continue home inhalers- Dulera and Spiriva - Overnight pulse ox w/ sats < 88% - Influenza negative; MRSA swab negative - ECHO w/ EF 20-25%, grade II diastolic dysfunction, LVH - Pulmonary consulted- believe RHC indicated - Cardiology consulted- new systolic dysfunction--> R/L HC possibly on 11/09 ESRD on HD MWF: - Continue PhosLo and Nephrocaps - Consult nephrology for dialysis management T2DM- hgbA1c 8.4% w/ hyperglycemia secondary to IV Solu Medrol- STABLE: - Increase Lantus 13 u BID to 18 u BID while receiving steroids - BSG ACHS and ISS- adjusted sliding scale to CF 20, CHO ratio 1:6 (pharmacy recommendations based off last inpatient stay) Chronic diastolic CHF w/ new systolic dysfunction: - Coreg 25 mg BID- decreased to 12.5 mg BID to allow for high BPs per cardiology - ECHO w/ EF 20-25%, grade II diastolic dysfunction, LVH - Cardiology following R 4th/5th toe ulceration: Wound care consulted, appreciate recommendations GI prophylaxis: Protonix daily + Tums PRN DVT prophylaxis: Heparin BID Code status: LEVEL I, FULL Dispo: From home. lives w/ son- PT/OT and CM consulted
[2017-11-05] MEDS ORDERED: NURSING VERBAL MED ORDER ONE (13:15)
[2017-11-05] MEDS: CALCIUM CARBONATE 500 MG CHEWABLE PO PRN ×2 (13:19→19:06)
[2017-11-05] MEDS ORDERED: INSULIN GLARGINE SOLOSTAR 100 UNITS/ML 3 ML PEN SC SCH (13:30)
--- NOTE | 2017-11-05 18:17 | Pulmonology Progress Note ---
Pulmonary Progress Note Date of Service Nov 05, 2017. Attending Dr. Montenegro Subjective Pulmonary consult 11/03/2017 with follow-up 11/04/[address] Marie. Patient seen and examined at bedside today and seems to be doing better from a pulmonary standpoint. She is resting comfortably with no evidence of respiratory distress. She has a minimal cough with no sputum production today. She is undergoing hemodialysis on a scheduled basis for end-stage renal disease. I spoke with Dr. Burgos who indicates that he will be working with nephrology to diurese the patient over the next 3 days before entertaining consideration for cardiac catheterization of the right and left heart. In discussion with the patient yesterday, she is aware that her ejection fraction has dropped to approximately 20% and was not interested at that time in a right heart cath. Patient will be followed over the next few days for diuresis with decision regarding catheterization Patient states today that she has improved aeration and minimal sputum. She has no chest pain or tightness. She has no hemoptysis. She denies fever or chills. Objective GENERAL : No acute distress EYES: No icterus, gaze conjugate NOSE: No evidence of epistaxis MOUTH: No lesions or candidiasis NECK: Supple LUNGS: CTA B/L, no wheezes, rales or rhonchi HEART: Regular, rate controlled ABDOMEN: Soft, NT, ND, BS Present EXTREMITIES: No LE edema, pedal pulses intact NEURO: A&OX3 Assessment & Plan Shortness of breath * Direct admit from Dr. henry's office for evaluation for possible bronchoscopy due to multiple admissions over the last few months * Patient seen by Dr. Marie for evaluation for procedures who felt that this is most likely a combination of COPD, STEPHEN, OHP, ESRD * Antibiotics were stopped and patient was started on Pulmozyme nebulizer treatments as well as formoterol and Spiriva * Patient continues on methylprednisolone 40 mg every 12 hours * Continue to undergo scheduled hemodialysis * Consider right heart catheterization if no improvement by Thursday -appreciate Dr. Burgos's input from cardiology DVT prophylaxis * Heparin 5000 units subcutaneously every 12 hours Thank you for including us in the care of this patient. We will follow along with you Data Medications: Current Inpatient Medications Medications (Trade) Dose Ordered Sig/Tu Route Start Time Stop Time Status Last Admin Dose Admin Acetaminophen (Tylenol Tab) 650 mg Q4H PRN PO 11/03/17 10:15 12/03/17 10:14 Polyethylene (Miralax Powder Packet) 17 gm DAILY PRN PO 11/03/17 10:15 12/03/17 10:14 Ondansetron HCl (Zofran Inj) 4 mg Q6H PRN IV 11/03/17 10:15 12/03/17 10:14 11/05/17 04:17 4 MG Calcium Acetate (Phoslo Cap) 667 mg BIDM PO 11/03/17 17:00 12/03/17 16:59 11/05/17 17:10 667 MG Tiotropium [place] (Spiriva Handihaler Inhaler) 1 puff DAILY INH 11/04/17 09:00 12/04/17 08:59 11/05/17 08:42 1 PUFF Miscellaneous Information (Order Awaiting Action) 1 ea QS N/A 11/03/17 16:00 12/03/17 15:59 Albuterol/ Ipratropium (Duoneb) 3 ml QIDR INH 11/03/17 12:00 12/03/17 11:59 11/05/17 15:33 3 ML Methylprednisolone Sodium Succinate 40 mg/Syringe 0.64 ml @ 1.5 mls/min Q8H IV 11/03/17 12:00 11/05/17 22:00 11/05/17 13:23 1.5 MLS/MIN Formoterol Fumarate (Perforomist 20MCG/2ML Neb Soln) 20 mcg BIDR INH 11/03/17 20:00 12/03/17 19:59 11/05/17 07:15 20 MCG Albuterol/ Ipratropium (Duoneb) 3 ml Q2H PRN INH 11/03/17 11:00 12/03/17 10:59 11/03/17 23:06 3 ML Insulin Aspart (novoLOG ASPART) SLIDING SCALE PARAMETER ACHS SC 11/03/17 11:30 12/03/17 11:29 11/05/17 17:18 11 UNITS Guaifenesin (Mucinex Contr Rel Tab) 1,200 mg Q12 PO 11/03/17 21:00 12/03/17 20:59 11/04/17 07:44 1,200 MG Glucose (Glucose 40% Gel) 15-30 GRAMS 15 GRAMS... UD PRN PO 11/03/17 11:30 12/03/17 11:29 Glucose (Glucose Chew Tab) 4-8 Tablets 4 Tabl... UD PRN PO 11/03/17 11:30 12/03/17 11:29 Dextrose (Dextrose 50% 50ML Syringe) 25-50ML OF 50% DW IV FOR... UD PRN IV 11/03/17 11:30 12/03/17 11:29 Glucagon (Glucagon Inj) 1 mg UD PRN SQ 11/03/17 11:30 12/03/17 11:29 Heparin Sodium (Porcine) (Heparin Sq 5000 Unit/0.5ml) 5,000 unit Q12 SQ 11/03/17 21:00 12/03/17 20:59 11/04/17 21:29 5,000 UNIT Dornase Conor (Pulmozyme Inhalation Soln 2.5ml Amp) 2.5 ml BIDR INH 11/03/17 20:00 12/03/17 19:59 11/05/17 07:15 2.5 ML Dextromethorphan Polymer Complex (Delsym Susp) 30 mg Q8H PRN PO 11/03/17 21:30 12/03/17 21:29 11/04/17 21:31 30 MG Menthol (Nice Keila) 1 keila PRN PRN KEILA 11/03/17 21:45 12/03/17 21:44 11/03/17 21:49 1 KEILA Insulin Glargine (Lantus Solostar Pen) 18 units BID SC 11/04/17 21:00 12/03/17 20:59 11/05/17 08:47 9 UNITS Pantoprazole Sodium (Protonix Tab) 40 mg QAM PO 11/05/17 09:00 11/08/17 09:01 11/05/17 08:43 40 MG Carvedilol (Coreg Tab) 12.5 mg BID PO 11/05/17 21:00 12/03/17 20:59 Calcium Carbonate (Tums Chew Tab) 500 mg Q6 PRN PO 11/05/17 11:15 12/05/17 11:14 11/05/17 13:19 500 MG Heparin Sodium (Porcine) (Heparin Iv Bolus) 2,000 unit ONE IV 11/06/17 06:00 11/06/17 06:01 Heparin Sodium (Porcine) (Heparin Iv Bolus) 500 unit Q1H IV 11/06/17 06:00 11/06/17 07:01 Epoetin Conor (Procrit Inj) 10,000 units ONE ONCE IV. 11/06/17 06:00 11/06/17 06:01 Methylprednisolone Sodium Succinate 40 mg/Syringe 0.64 ml @ 1.5 mls/min Q12H IV 11/06/17 09:00 12/06/17 08:59 I & O: 24-Hour Column 11/06/17 07:59 Intake Total 350 ml Balance 350 ml Vital Signs: Date Time Temp Pulse Resp B/P (MAP) Pulse Ox O2 Delivery O2 Flow Rate FiO2 11/05/17 15:33 67 18 98 Nasal Cannula 2.0 11/05/17 15:25 36.6 62 20 111/64 (80) 92 Nasal Cannula 2.0 11/05/17 08:00 Nasal Cannula 2.0 11/05/17 07:17 82 18 95 Nasal Cannula 2.0 11/05/17 07:06 36.5 67 18 103/62 (76) 98 2.0 11/05/17 05:47 88 18 84 Room Air 11/05/17 00:02 36.6 78 19 112/62 (79) 93 Nasal Cannula 2.0 11/05/17 00:00 Nasal Cannula 2.0 11/04/17 20:09 82 18 94 Nasal Cannula 2.0 11/04/17 19:47 36.5 77 116/58 (77) 11/04/17 19:00 67 109/56 11/04/17 18:45 69 115/57 11/04/17 18:30 72 110/54 11/04/17 18:15 67 110/56 Laboratory Results: Last 24 Hours Test 11/04/17 19:49 11/05/17 04:10 11/05/17 07:28 11/05/17 07:30 Bedside Glucose 135 mg/dl 246 mg/dl 263 mg/dl Sodium Level 131 mmol/L Potassium Level 4.5 mmol/L Chloride Level 97 mmol/L Carbon Dioxide Level 25 mmol/L Anion Gap 9.0 mmol/L Blood Urea Nitrogen 36 mg/dl Creatinine 2.93 mg/dl Est Creatinine Clear Calc Drug Dose 18.1 ml/min Estimated GFR () 18.1 Estimated GFR (Non- 15.7 BUN/Creatinine Ratio 12.3 Random Glucose 246 mg/dl Calcium Level 8.2 mg/dl Hepatitis B Surface Antigen NEG Hepatitis B Surface Antibody POS Test 11/05/17 11:36 11/05/17 16:37 Bedside Glucose 200 mg/dl 233 mg/dl
[2017-11-05] MEDS ORDERED: CARVEDILOL 12.5 MG TAB PO SCH (21:00)
[2017-11-06] VITALS (25 sets, daily range): BP systolic 86–148; BP diastolic 40–89; PULSE 54–82; TEMP 36.3–36.7; O2SAT 95–98
[2017-11-06] MEDS ORDERED: HEPARIN SOD (PORCINE) 1000 UNIT/ML 10 ML VIAL IV SCH (06:00)
[2017-11-06] MEDS ORDERED: EPOETIN ALFA 10,000 UNITS/ML VIAL IV. ONE (06:00)
[2017-11-06] MEDS: DORNASE ALFA 2.5 ML AMP INH SCH ×2 (07:12→20:37)
[2017-11-06] MEDS: FORMOTEROL FUMA NEBULIZER SOLN 20 MCG/2 ML VIAL INH SCH ×2 (07:12→20:36)
[2017-11-06] MEDS: ALBUT/IPRATROP 3MG/0.5MG NEB 3 ML VIAL INH SCH ×3 (07:12→20:00)
[2017-11-06] MEDS: HEPARIN SOD 5000 UNIT/0.5 ML CARP SQ SCH ×2 (08:00→21:00)
[2017-11-06] MEDS: CALCIUM ACETATE 667MG GELCAP PO SCH ×2 (08:05→17:25)
[2017-11-06] MEDS: GUAIFENESIN 600 MG TABCR PO SCH ×2 (08:06→21:00)
[2017-11-06] MEDS: TIOTROPIUM BROMIDE 5 PUFF/90 MCG INH INH SCH (08:06)
[2017-11-06] MEDS: PANTOprazole SOD 40 MG TAB PO SCH (08:06)
[2017-11-06] MEDS: INSULIN ASPART 100 UNITS/ML 3 ML PEN SC SCH ×4 (08:07→21:09)
[2017-11-06] MEDS: INSULIN GLARGINE SOLOSTAR 100 UNITS/ML 3 ML PEN SC SCH ×2 (08:08→21:10)
[2017-11-06] MEDS: METHYLPREDNISOLONE IV 40 MG in SYRINGE 0 ML IV SCH ×2 (08:09→21:04)
[2017-11-06 08:17] LABS: HEMOGLOBIN 9.8 g/dL (12.0-16.0); MEAN CELL VOLUME 97.1 fL (80-100); MEAN CORPUSCULAR HEMOGLOBIN 31.7 pg (25-34); MEAN CORPUSCULAR HGB CONC 32.7 g/dl (32-36); MEAN PLATELET VOLUME 10.2 fL (7.4-10.4); NUCLEATED RED BLOOD CELL ABS 0.05 K/uL (0-0); PLATELET COUNT 174 K/uL (130-400); RED CELL DISTRIBUTION WIDTH CV 18.5 % (11.5-14.5); RED CELL DISTRIBUTION WIDTH SD 63.9 fL (36.4-46.3); WHITE BLOOD COUNT 6.44 K/uL (4.8-10.8)
[2017-11-06 08:59] LABS: CALCIUM 8.4 mg/dl (8.5-10.1); CREATININE 4.29 mg/dl (0.60-1.20)
[2017-11-06] MEDS: HEPARIN SOD (PORCINE) 1000 UNIT/ML 10 ML VIAL IV SCH ×2 (09:41→11:34)
--- NOTE | 2017-11-06 10:30 | CARDIOLOGY PROGRESS NOTE ---
DATE: 11/06/2017 CARDIOLOGY CONSULTATION FOLLOWUP NOTE The patient was seen and examined. Chart, medications, and laboratory studies were reviewed. SUBJECTIVE: The patient continues to have intermittent coughing. Notes no chest pains. Notes no dizziness or lightheadedness. Notes no orthopnea. OBJECTIVE: VITAL SIGNS: Heart rate is 56 and blood pressure is 103/54. NECK: Thick. There is no distinct jugular venous distention. LUNGS: Reveal coarse wheezes and crackles, basilar. CARDIOVASCULAR: Regular. There is no S3 gallop. ABDOMEN: Soft and nontender. EXTREMITIES: No cyanosis or clubbing. There is no peripheral edema. LABORATORY DATA: Today, sodium is 132, potassium is 5.0, chloride is 99, bicarbonate is 23, BUN is 72, creatinine is 4.2, and glucose is 140. IMPRESSION: A 67-year-old female admitted with mixed respiratory distress with echocardiogram demonstrating newly noted significant decline in overall systolic function, EF 20%-25%. Suspect respiratory issues remain pulmonary currently with cough, though component of underlying congestive heart failure possible. PLAN: As previously outlined will be more aggressive dialysis with reduction in carvedilol to aid in blood pressure response. Consider addition of afterload reduction in the future as well as possible diagnostic cardiac catheterization depending on clinical course. She remains reluctant.
--- NOTE | 2017-11-06 11:38 | Hospitalist Progress Note ---
Hospitalist Progress Note Date of Service Nov 06, 2017. Subjective Pt evaluation today including: conversation w/ patient, physical exam, lab review, review of inpatient medication list Voiding: no voiding problems Patient in room receiving dialysis. Still has little UOP. Tolerating dialysis well. Eating and drinking OK. Breathing and cough seems to be improving. Hesitant about getting cath on Thursday because she does not think she can lay flat for that long. Patient denies any fever, chills, sweats, lightheadedness, dizziness, vision changes, CP, palpitations, edema, wheezing, abdominal pain, nausea, vomiting, diarrhea, urinary symptoms, melena, numbness/tingling, weakness, muscle/joint pain, anxiety/depression, active bleeding, or new skin discoloration/changes. Medications Current Inpatient Medications Medications (Trade) Dose Ordered Sig/Tu Route Start Time Stop Time Status Last Admin Dose Admin Acetaminophen (Tylenol Tab) 650 mg Q4H PRN PO 11/03/17 10:15 12/03/17 10:14 Polyethylene (Miralax Powder Packet) 17 gm DAILY PRN PO 11/03/17 10:15 12/03/17 10:14 Ondansetron HCl (Zofran Inj) 4 mg Q6H PRN IV 11/03/17 10:15 12/03/17 10:14 11/05/17 04:17 4 MG Calcium Acetate (Phoslo Cap) 667 mg BIDM PO 11/03/17 17:00 12/03/17 16:59 11/06/17 08:05 667 MG Tiotropium [place] (Spiriva Handihaler Inhaler) 1 puff DAILY INH 11/04/17 09:00 12/04/17 08:59 11/06/17 08:06 1 PUFF Miscellaneous Information (Order Awaiting Action) 1 ea QS N/A 11/03/17 16:00 12/03/17 15:59 Albuterol/ Ipratropium (Duoneb) 3 ml QIDR INH 11/03/17 12:00 12/03/17 11:59 11/06/17 07:12 3 ML Formoterol Fumarate (Perforomist 20MCG/2ML Neb Soln) 20 mcg BIDR INH 11/03/17 20:00 12/03/17 19:59 11/06/17 07:12 20 MCG Albuterol/ Ipratropium (Duoneb) 3 ml Q2H PRN INH 11/03/17 11:00 12/03/17 10:59 11/03/17 23:06 3 ML Insulin Aspart (novoLOG ASPART) SLIDING SCALE PARAMETER ACHS SC 11/03/17 11:30 12/03/17 11:29 11/06/17 08:07 8 UNITS Guaifenesin (Mucinex Contr Rel Tab) 1,200 mg Q12 PO 11/03/17 21:00 12/03/17 20:59 11/06/17 08:06 1,200 MG Glucose (Glucose 40% Gel) 15-30 GRAMS 15 GRAMS... UD PRN PO 11/03/17 11:30 12/03/17 11:29 Glucose (Glucose Chew Tab) 4-8 Tablets 4 Tabl... UD PRN PO 11/03/17 11:30 12/03/17 11:29 Dextrose (Dextrose 50% 50ML Syringe) 25-50ML OF 50% DW IV FOR... UD PRN IV 11/03/17 11:30 12/03/17 11:29 Glucagon (Glucagon Inj) 1 mg UD PRN SQ 11/03/17 11:30 12/03/17 11:29 Heparin Sodium (Porcine) (Heparin Sq 5000 Unit/0.5ml) 5,000 unit Q12 SQ 11/03/17 21:00 12/03/17 20:59 11/04/17 21:29 5,000 UNIT Dornase [place] (Pulmozyme Inhalation Soln 2.5ml Amp) 2.5 ml BIDR INH 11/03/17 20:00 12/03/17 19:59 11/06/17 07:12 2.5 ML Dextromethorphan Polymer Complex (Delsym Susp) 30 mg Q8H PRN PO 11/03/17 21:30 12/03/17 21:29 11/04/17 21:31 30 MG Menthol (Nice Keila) 1 keila PRN PRN KEILA 11/03/17 21:45 12/03/17 21:44 11/03/17 21:49 1 KEILA Insulin Glargine (Lantus Solostar Pen) 18 units BID SC 11/04/17 21:00 12/03/17 20:59 11/06/17 08:08 18 UNITS Pantoprazole Sodium (Protonix Tab) 40 mg QAM PO 11/05/17 09:00 11/08/17 09:01 11/06/17 08:06 40 MG Calcium Carbonate (Tums Chew Tab) 500 mg Q6 PRN PO 11/05/17 11:15 12/05/17 11:14 11/05/17 19:06 500 MG Methylprednisolone Sodium Succinate 40 mg/Syringe 0.64 ml @ 1.5 mls/min Q12H IV 11/06/17 09:00 12/06/17 08:59 11/06/17 08:09 1.5 MLS/MIN Carvedilol (Coreg Tab) 6.25 mg BID PO 11/06/17 21:00 12/03/17 20:59 Objective Vital Signs Date Time Temp Pulse Resp B/P (MAP) Pulse Ox O2 Delivery O2 Flow Rate FiO2 11/06/17 11:15 63 92/54 11/06/17 11:00 64 86/50 11/06/17 10:53 55 102/47 11/06/17 10:45 54 90/40 11/06/17 10:30 54 92/42 11/06/17 10:15 56 97/52 11/06/17 10:00 55 99/49 11/06/17 09:45 56 103/54 11/06/17 09:30 61 123/45 11/06/17 09:15 64 130/62 11/06/17 09:00 59 105/53 11/06/17 08:45 59 107/56 11/06/17 08:42 58 111/54 11/06/17 08:36 36.3 59 108/47 (67) 11/06/17 08:00 Nasal Cannula 2.0 11/06/17 07:39 36.5 56 18 108/67 (81) 98 Nasal Cannula 2.0 11/06/17 07:14 80 18 98 Nasal Cannula 2.0 11/06/17 00:00 Nasal Cannula 2.0 11/05/17 23:56 36.3 67 20 102/61 (75) 98 2.0 11/05/17 23:50 80 18 98 Nasal Cannula 2.0 11/05/17 21:05 67 121/81 (94) 11/05/17 19:39 76 18 98 Nasal Cannula 2.0 11/05/17 16:00 Nasal Cannula 2.0 11/05/17 15:33 67 18 98 Nasal Cannula 2.0 11/05/17 15:25 36.6 62 20 111/64 (80) 92 Nasal Cannula 2.0 Physical Exam General Appearance: no apparent distress, + obese, + pertinent finding (O2 NC ) Eyes: normal inspection, PERRL ENT: hearing grossly normal Neck: supple Respiratory/Chest: lungs clear, no respiratory distress, no accessory muscle use, + decreased breath sounds (throughout ) Cardiovascular: regular rate, rhythm Abdomen: normal bowel sounds, non tender, soft Extremities: no pedal edema, no calf tenderness Neurologic/Psychiatric: alert, normal mood/affect, oriented x 3 Skin: normal color, warm/dry, no rash Laboratory Results Last 24 Hours Test 11/05/17 11:36 11/05/17 16:37 11/05/17 21:00 11/06/17 07:41 Bedside Glucose 200 mg/dl 233 mg/dl 211 mg/dl White Blood Count 6.44 K/uL Red Blood Count 3.09 M/uL Hemoglobin 9.8 g/dL Hematocrit 30.0 % Mean Corpuscular Volume 97.1 fL Mean Corpuscular Hemoglobin 31.7 pg Mean Corpuscular Hemoglobin Concent 32.7 g/dl RDW Standard Deviation 63.9 fL RDW Coefficient of Variation 18.5 % Platelet Count 174 K/uL Mean Platelet Volume 10.2 fL Nucleated RBC Absolute Count (auto) 0.05 K/uL Nucleated Red Blood Cells % 0.8 % Sodium Level 132 mmol/L Potassium Level 5.0 mmol/L Chloride Level 99 mmol/L Carbon Dioxide Level 23 mmol/L Anion Gap 9.0 mmol/L Blood Urea Nitrogen 72 mg/dl Creatinine 4.29 mg/dl Est Creatinine Clear Calc Drug Dose 12.4 ml/min Estimated GFR () 11.4 Estimated GFR (Non- 9.9 BUN/Creatinine Ratio 16.9 Random Glucose 128 mg/dl Calcium Level 8.4 mg/dl Test 11/06/17 07:51 Bedside Glucose 140 mg/dl Assessment and Plan 67-year-old female with chronic respiratory failure with hypoxia was failed outpatient treatment and has concern for persistent infectious process in her lung/pneumonia. Dyspnea, chronic respiratory failure w/ hypoxemia, h/o COPD, h/o asthma, ?STEPHEN vs OHV: - Admitted to med/surg - Levaquin 750 mg daily- pulmonary does not think infectious, discontinued - IV Solu Medrol- currently at 40 mg BID - DuoNebs QID and PRN for SOB/wheezing - Delsym PRN for cough, Mucinex BID - Continue home inhalers- Dulera and Spiriva - Overnight pulse ox w/ sats < 88% - Influenza negative; MRSA swab negative - ECHO w/ EF 20-25%, grade II diastolic dysfunction, LVH - Pulmonary consulted- believe RHC indicated - Cardiology consulted- new systolic dysfunction--> R/L HC possibly on 11/09 ESRD on HD MWF: - Continue PhosLo and Nephrocaps - Consult nephrology for dialysis management T2DM- hgbA1c 8.4% w/ hyperglycemia secondary to IV Solu Medrol- STABLE: - Increase Lantus 13 u BID to 18 u BID while receiving steroids - BSG ACHS and ISS- adjusted sliding scale to CF 20, CHO ratio 1:6 (pharmacy recommendations based off last inpatient stay) Chronic diastolic CHF w/ new systolic dysfunction: - Coreg 25 mg BID- decreased to 6.25 mg BID to allow for high BPs per cardiology - ECHO w/ EF 20-25%, grade II diastolic dysfunction, LVH - Cardiology following R 4th/5th toe ulceration: Wound care consulted, appreciate recommendations GI prophylaxis: Protonix daily + Tums PRN DVT prophylaxis: Heparin BID Code status: LEVEL I, FULL Dispo: From home. lives w/ son- PT/OT and CM consulted
[2017-11-06] MEDS: DEXTROMETHORPHAN POLYMR COMPLX 30 MG/5 ML UDP PO PRN ×2 (14:50→23:47)
--- NOTE | 2017-11-06 16:10 | Pulmonology Progress Note ---
Pulmonary Progress Note Date of Service Nov 06, 2017. Attending Dr. Montenegro Subjective Dialysis today. Feels worn out. Increased cough since dialysis. She feels as though they took too much fluid off. No fever chills. No chest pain. Cough overall has improved until after dialysis Objective GENERAL : No acute distress. Positive cough with no sputum production EYES: No icterus, gaze conjugate NOSE: No evidence of epistaxis MOUTH: No lesions or candidiasis NECK: Supple LUNGS: CTA B/L, no wheezes, rales or rhonchi HEART: Regular, rate controlled ABDOMEN: Soft, NT, ND, BS Present EXTREMITIES: No LE edema, pedal pulses intact NEURO: A&OX3 Assessment & Plan Shortness of breath * Direct admit from Dr. henry's office for evaluation for possible bronchoscopy due to multiple admissions over the last few months * Patient seen by Dr. Marie for evaluation for procedures who felt that this is most likely a combination of COPD, STEPHEN, OHP, ESRD * No bronchoscopy was performed * Antibiotics were stopped and patient was started on Pulmozyme nebulizer treatments as well as formoterol and Spiriva * Patient continues on methylprednisolone -begin to taper * Continue to undergo scheduled hemodialysis * Consider right heart catheterization if no improvement by Thursday -appreciate Dr. Burgos's input from cardiology DVT prophylaxis * Heparin 5000 units subcutaneously every 12 hours Thank you for including us in the care of this patient. We will follow along with you regarding the right heart cath. At this point patient appears to be at baseline. Will orange picker on Thursday with Dr. henry. Data Medications: Current Inpatient Medications Medications (Trade) Dose Ordered Sig/Tu Route Start Time Stop Time Status Last Admin Dose Admin Acetaminophen (Tylenol Tab) 650 mg Q4H PRN PO 11/03/17 10:15 12/03/17 10:14 Polyethylene (Miralax Powder Packet) 17 gm DAILY PRN PO 11/03/17 10:15 12/03/17 10:14 Ondansetron HCl (Zofran Inj) 4 mg Q6H PRN IV 11/03/17 10:15 12/03/17 10:14 11/05/17 04:17 4 MG Calcium Acetate (Phoslo Cap) 667 mg BIDM PO 11/03/17 17:00 12/03/17 16:59 11/06/17 08:05 667 MG Tiotropium [place] (Spiriva Handihaler Inhaler) 1 puff DAILY INH 11/04/17 09:00 12/04/17 08:59 11/06/17 08:06 1 PUFF Miscellaneous Information (Order Awaiting Action) 1 ea QS N/A 11/03/17 16:00 12/03/17 15:59 Albuterol/ Ipratropium (Duoneb) 3 ml QIDR INH 11/03/17 12:00 12/03/17 11:59 11/06/17 07:12 3 ML Formoterol Fumarate (Perforomist 20MCG/2ML Neb Soln) 20 mcg BIDR INH 11/03/17 20:00 12/03/17 19:59 11/06/17 07:12 20 MCG Albuterol/ Ipratropium (Duoneb) 3 ml Q2H PRN INH 11/03/17 11:00 12/03/17 10:59 11/03/17 23:06 3 ML Insulin Aspart (novoLOG ASPART) SLIDING SCALE PARAMETER ACHS SC 11/03/17 11:30 12/03/17 11:29 11/06/17 12:58 17 UNITS Guaifenesin (Mucinex Contr Rel Tab) 1,200 mg Q12 PO 11/03/17 21:00 12/03/17 20:59 11/06/17 08:06 1,200 MG Glucose (Glucose 40% Gel) 15-30 GRAMS 15 GRAMS... UD PRN PO 11/03/17 11:30 12/03/17 11:29 Glucose (Glucose Chew Tab) 4-8 Tablets 4 Tabl... UD PRN PO 11/03/17 11:30 12/03/17 11:29 Dextrose (Dextrose 50% 50ML Syringe) 25-50ML OF 50% DW IV FOR... UD PRN IV 11/03/17 11:30 12/03/17 11:29 Glucagon (Glucagon Inj) 1 mg UD PRN SQ 11/03/17 11:30 12/03/17 11:29 Heparin Sodium (Porcine) (Heparin Sq 5000 Unit/0.5ml) 5,000 unit Q12 SQ 11/03/17 21:00 12/03/17 20:59 11/04/17 21:29 5,000 UNIT Dornase Conor (Pulmozyme Inhalation Soln 2.5ml Amp) 2.5 ml BIDR INH 11/03/17 20:00 12/03/17 19:59 11/06/17 07:12 2.5 ML Dextromethorphan Polymer Complex (Delsym Susp) 30 mg Q8H PRN PO 11/03/17 21:30 12/03/17 21:29 11/06/17 14:50 30 MG Menthol (Nice Keila) 1 keila PRN PRN KEILA 11/03/17 21:45 12/03/17 21:44 11/03/17 21:49 1 KEILA Insulin Glargine (Lantus Solostar Pen) 18 units BID SC 11/04/17 21:00 12/03/17 20:59 11/06/17 08:08 18 UNITS Pantoprazole Sodium (Protonix Tab) 40 mg QAM PO 11/05/17 09:00 11/08/17 09:01 11/06/17 08:06 40 MG Calcium Carbonate (Tums Chew Tab) 500 mg Q6 PRN PO 11/05/17 11:15 12/05/17 11:14 11/05/17 19:06 500 MG Methylprednisolone Sodium Succinate 40 mg/Syringe 0.64 ml @ 1.5 mls/min Q12H IV 11/06/17 09:00 12/06/17 08:59 11/06/17 08:09 1.5 MLS/MIN Carvedilol (Coreg Tab) 6.25 mg BID PO 11/06/17 21:00 12/03/17 20:59 Fluticasone Propionate (Flonase Nasal [place]) 2 sprays BID NA 11/06/17 21:00 12/06/17 20:59 UNV I & O: 24-Hour Column 11/07/17 08:00 Intake Total 400 ml Output Total 1500 ml Balance -1100 ml Vital Signs: Date Time Temp Pulse Resp B/P (MAP) Pulse Ox O2 Delivery O2 Flow Rate FiO2 11/06/17 15:38 36.7 70 20 123/75 (91) 95 Nasal Cannula 2.0 11/06/17 13:23 82 18 97 Nasal Cannula 2.0 11/06/17 13:22 82 18 97 Nasal Cannula 2.0 11/06/17 12:11 36.3 72 129/62 (84) 11/06/17 11:45 65 107/55 11/06/17 11:30 64 100/42 11/06/17 11:15 63 92/54 11/06/17 11:00 64 86/50 11/06/17 10:53 55 102/47 11/06/17 10:45 54 90/40 11/06/17 10:30 54 92/42 11/06/17 10:15 56 97/52 11/06/17 10:00 55 99/49 11/06/17 09:45 56 103/54 11/06/17 09:30 61 123/45 11/06/17 09:15 64 130/62 11/06/17 09:00 59 105/53 11/06/17 08:45 59 107/56 11/06/17 08:42 58 111/54 11/06/17 08:36 36.3 59 108/47 (67) 11/06/17 08:00 Nasal Cannula 2.0 11/06/17 07:39 36.5 56 18 108/67 (81) 98 Nasal Cannula 2.0 11/06/17 07:14 80 18 98 Nasal Cannula 2.0 11/06/17 00:00 Nasal Cannula 2.0 11/05/17 23:56 36.3 67 20 102/61 (75) 98 2.0 11/05/17 23:50 80 18 98 Nasal Cannula 2.0 11/05/17 21:05 67 121/81 (94) 11/05/17 19:39 76 18 98 Nasal Cannula 2.0 Laboratory Results: Last 24 Hours Test 11/05/17 16:37 11/05/17 21:00 11/06/17 07:41 11/06/17 07:51 Bedside Glucose 233 mg/dl 211 mg/dl 140 mg/dl White Blood Count 6.44 K/uL Red Blood Count 3.09 M/uL Hemoglobin 9.8 g/dL Hematocrit 30.0 % Mean Corpuscular Volume 97.1 fL Mean Corpuscular Hemoglobin 31.7 pg Mean Corpuscular Hemoglobin Concent 32.7 g/dl RDW Standard Deviation 63.9 fL RDW Coefficient of Variation 18.5 % Platelet Count 174 K/uL Mean Platelet Volume 10.2 fL Nucleated RBC Absolute Count (auto) 0.05 K/uL Nucleated Red Blood Cells % 0.8 % Sodium Level 132 mmol/L Potassium Level 5.0 mmol/L Chloride Level 99 mmol/L Carbon Dioxide Level 23 mmol/L Anion Gap 9.0 mmol/L Blood Urea Nitrogen 72 mg/dl Creatinine 4.29 mg/dl Est Creatinine Clear Calc Drug Dose 12.4 ml/min Estimated GFR () 11.4 Estimated GFR (Non- 9.9 BUN/Creatinine Ratio 16.9 Random Glucose 128 mg/dl Calcium Level 8.4 mg/dl Test 11/06/17 11:56 Bedside Glucose 142 mg/dl
--- NOTE | 2017-11-06 17:21 | Nephrology Progress Note ---
Nephrology Progress Note Date of Service Nov 06, 2017. Chief Complaint ESRD Subjective LATE ENTRY: Mrs. Santiago was seen & examined in her hospital room in preparation for HD this am. She remains mildly dyspneic and c/o a nonproductive cough. She denies angina Review of Systems Constitutional: No fever Cardiovascular: No chest pain Respiratory: No dyspnea at rest Abdomen: No pain, No nausea, No vomiting Extremities: No leg edema A complete review of systems was performed. Pertinent positives are noted above. All other systems are negative. Vital Signs Last 8 Hrs Date Time Temp Pulse Resp B/P (MAP) Pulse Ox O2 Delivery O2 Flow Rate FiO2 11/06/17 15:38 36.7 70 20 123/75 (91) 95 Nasal Cannula 2.0 11/06/17 13:23 82 18 97 Nasal Cannula 2.0 11/06/17 13:22 82 18 97 Nasal Cannula 2.0 11/06/17 12:11 36.3 72 129/62 (84) 11/06/17 11:45 65 107/55 11/06/17 11:30 64 100/42 11/06/17 11:15 63 92/54 11/06/17 11:00 64 86/50 11/06/17 10:53 55 102/47 11/06/17 10:45 54 90/40 11/06/17 10:30 54 92/42 11/06/17 10:15 56 97/52 11/06/17 10:00 55 99/49 11/06/17 09:45 56 103/54 11/06/17 09:30 61 123/45 I & O 24-Hour Column 11/07/17 08:00 Intake Total 400 ml Output Total 1500 ml Balance -1100 ml Last Recorded Weight Weight (Kilograms): 81.600 Physical Exam General Appearance: no apparent distress Head: normocephalic, atraumatic Eyes: PERRL Neck: no adenopathy Respiratory/Chest: + rales, + wheezing Cardiovascular: regular rate, rhythm Abdomen/GI: normal bowel sounds, non tender, soft Extremities/Musculoskelatal: no calf tenderness, no pedal edema Neurologic/Psych: alert Family History FH: HTN (hypertension) Hypertension Social History Smoking Status: Never smoker Drug Use: none Marital Status: Housing Status: lives with family Occupation: retired . Retired. Never a smoker Laboratory Results Past 24 Hours 11/06/17 07:41 11/06/17 07:41 Test 11/05/17 21:00 11/06/17 07:41 11/06/17 07:51 11/06/17 11:56 Bedside Glucose 211 mg/dl (70-90) 140 mg/dl (70-90) 142 mg/dl (70-90) Red Blood Count 3.09 M/uL (4.2-5.4) Mean Corpuscular Volume 97.1 fL (80-100) Mean Corpuscular Hemoglobin 31.7 pg (25-34) Mean Corpuscular Hemoglobin Concent 32.7 g/dl (32-36) RDW Standard Deviation 63.9 fL (36.4-46.3) RDW Coefficient of Variation 18.5 % (11.5-14.5) Mean Platelet Volume 10.2 fL (7.4-10.4) Nucleated RBC Absolute Count (auto) 0.05 K/uL (0-0) Nucleated Red Blood Cells % 0.8 % Anion Gap 9.0 mmol/L (3-11) Est Creatinine Clear Calc Drug Dose 12.4 ml/min Estimated GFR () 11.4 Estimated GFR (Non- 9.9 BUN/Creatinine Ratio 16.9 (10-20) Calcium Level 8.4 mg/dl (8.5-10.1) Test 11/06/17 16:23 Bedside Glucose 183 mg/dl (70-90) Allergies Coded Allergies: Hydralazine (Verified Allergy, Intermediate, rash, 10/30/17) Isosorbide Nitrate (Verified Allergy, Unknown, ITCHING, 10/30/17) EZE Inhibitors (Verified Adverse Reaction, Unknown, DUE TO CKD, 10/30/17) Medications Current Inpatient Medications Medications (Trade) Dose Ordered Sig/Tu Route Start Time Stop Time Status Last Admin Dose Admin Acetaminophen (Tylenol Tab) 650 mg Q4H PRN PO 11/03/17 10:15 12/03/17 10:14 Polyethylene (Miralax Powder Packet) 17 gm DAILY PRN PO 11/03/17 10:15 12/03/17 10:14 Ondansetron HCl (Zofran Inj) 4 mg Q6H PRN IV 11/03/17 10:15 12/03/17 10:14 11/05/17 04:17 4 MG Calcium Acetate (Phoslo Cap) 667 mg BIDM PO 11/03/17 17:00 12/03/17 16:59 11/06/17 08:05 667 MG Tiotropium [place] (Spiriva Handihaler Inhaler) 1 puff DAILY INH 11/04/17 09:00 12/04/17 08:59 11/06/17 08:06 1 PUFF Miscellaneous Information (Order Awaiting Action) 1 ea QS N/A 11/03/17 16:00 12/03/17 15:59 Albuterol/ Ipratropium (Duoneb) 3 ml QIDR INH 11/03/17 12:00 12/03/17 11:59 11/06/17 07:12 3 ML Formoterol Fumarate (Perforomist 20MCG/2ML Neb Soln) 20 mcg BIDR INH 11/03/17 20:00 12/03/17 19:59 11/06/17 07:12 20 MCG Albuterol/ Ipratropium (Duoneb) 3 ml Q2H PRN INH 11/03/17 11:00 12/03/17 10:59 11/03/17 23:06 3 ML Insulin Aspart (novoLOG ASPART) SLIDING SCALE PARAMETER ACHS SC 11/03/17 11:30 12/03/17 11:29 11/06/17 12:58 17 UNITS Guaifenesin (Mucinex Contr Rel Tab) 1,200 mg Q12 PO 11/03/17 21:00 12/03/17 20:59 11/06/17 08:06 1,200 MG Glucose (Glucose 40% Gel) 15-30 GRAMS 15 GRAMS... UD PRN PO 11/03/17 11:30 12/03/17 11:29 Glucose (Glucose Chew Tab) 4-8 Tablets 4 Tabl... UD PRN PO 11/03/17 11:30 12/03/17 11:29 Dextrose (Dextrose 50% 50ML Syringe) 25-50ML OF 50% DW IV FOR... UD PRN IV 11/03/17 11:30 12/03/17 11:29 Glucagon (Glucagon Inj) 1 mg UD PRN SQ 11/03/17 11:30 12/03/17 11:29 Heparin Sodium (Porcine) (Heparin Sq 5000 Unit/0.5ml) 5,000 unit Q12 SQ 11/03/17 21:00 12/03/17 20:59 11/04/17 21:29 5,000 UNIT Dornase Conor (Pulmozyme Inhalation Soln 2.5ml Amp) 2.5 ml BIDR INH 11/03/17 20:00 12/03/17 19:59 11/06/17 07:12 2.5 ML Dextromethorphan Polymer Complex (Delsym Susp) 30 mg Q8H PRN PO 11/03/17 21:30 12/03/17 21:29 11/06/17 14:50 30 MG Menthol (Nice Keila) 1 keila PRN PRN KEILA 11/03/17 21:45 12/03/17 21:44 11/03/17 21:49 1 KEILA Insulin Glargine (Lantus Solostar Pen) 18 units BID SC 11/04/17 21:00 12/03/17 20:59 11/06/17 08:08 18 UNITS Pantoprazole Sodium (Protonix Tab) 40 mg QAM PO 11/05/17 09:00 11/08/17 09:01 11/06/17 08:06 40 MG Calcium Carbonate (Tums Chew Tab) 500 mg Q6 PRN PO 11/05/17 11:15 12/05/17 11:14 11/05/17 19:06 500 MG Methylprednisolone Sodium Succinate 40 mg/Syringe 0.64 ml @ 1.5 mls/min Q12H IV 11/06/17 09:00 12/06/17 08:59 11/06/17 08:09 1.5 MLS/MIN Carvedilol (Coreg Tab) 6.25 mg BID PO 11/06/17 21:00 12/03/17 20:59 Fluticasone Propionate (Flonase Nasal [place]) 2 sprays BID NA 11/06/17 21:00 12/06/17 20:59 Impression (1) ESRD (end stage renal disease) on dialysis (2) Bilateral pneumonia (3) COPD (chronic obstructive pulmonary disease) (4) Lung mass Recommendations END STAGE RENAL DISEASE: -- Spoke w/ Dr. Burgos am. Patient has significant drop in LVEF on echocardiogram. R & L heart cath scheduled for Thursday. Will challenge EDW on HD today to allow her to lie flat for the procedure on Thursday -- Protect L arm AVF -- Renal diet HYPERTENSION: -- Blood pressure is well controlled. Continue Carvedilol ANEMIA: -- Stable. Appropriate. on VITALY as outpatient PULMONARY: -- Bilateral pulmonary infiltrates and 2.5 cm ERICH lesion. Await bronchoscopy results and Pulmonology recommendations
[2017-11-06] MEDS: FLUTICASONE PROPIONATE NA SPR 16 GM BTL SCH (21:03)
[2017-11-06] MEDS: CARVEDILOL 12.5 MG TAB PO SCH (21:06)
[2017-11-07] VITALS (8 sets, daily range): BP systolic 117–159; BP diastolic 62–75; PULSE 67–76; TEMP 36.4–36.6; O2SAT 91–97
--- NOTE | 2017-11-07 07:14 | DIAGNOSTIC IMAGING REPORT ---
CHEST ONE VIEW PORTABLE CLINICAL HISTORY: cardiomyopathy, respiratory failure dyspnea COMPARISON STUDY: 11/11/2017 FINDINGS: Stable cardiomegaly. Prominence of pulmonary vasculature. Diaphragms are smooth. Lungs are considered clear. IMPRESSION: Stable cardiomegaly. Lungs are clear. The above report was generated using voice recognition software. It may contain grammatical, syntax or spelling errors. Electronically signed by: Cristiano Hernández M.D. 11/07/2017 7:13 AM Dictated Date/Time: 11/07/2017 7:11 AM
[2017-11-07 07:28] LABS: CALCIUM 8.2 mg/dl (8.5-10.1); CREATININE 3.41 mg/dl (0.60-1.20); POTASSIUM 4.5 mmol/L (3.5-5.1)
[2017-11-07] MEDS: DORNASE ALFA 2.5 ML AMP INH SCH ×2 (07:39→19:25)
[2017-11-07] MEDS: ALBUT/IPRATROP 3MG/0.5MG NEB 3 ML VIAL INH SCH ×4 (07:40→19:23)
[2017-11-07] MEDS: FORMOTEROL FUMA NEBULIZER SOLN 20 MCG/2 ML VIAL INH SCH ×2 (07:40→19:24)
[2017-11-07] MEDS: METHYLPREDNISOLONE IV 40 MG in SYRINGE 0 ML IV SCH ×2 (08:10→20:49)
[2017-11-07] MEDS: PANTOprazole SOD 40 MG TAB PO SCH (08:11)
[2017-11-07] MEDS: GUAIFENESIN 600 MG TABCR PO SCH ×2 (08:11→20:45)
[2017-11-07] MEDS: DEXTROMETHORPHAN POLYMR COMPLX 30 MG/5 ML UDP PO PRN ×2 (08:11→15:40)
[2017-11-07] MEDS: HEPARIN SOD 5000 UNIT/0.5 ML CARP SQ SCH ×2 (08:11→20:40)
[2017-11-07] MEDS: TIOTROPIUM BROMIDE 5 PUFF/90 MCG INH INH SCH (08:11)
[2017-11-07] MEDS: FLUTICASONE PROPIONATE NA SPR 16 GM BTL SCH ×2 (08:11→20:48)
[2017-11-07] MEDS: CALCIUM ACETATE 667MG GELCAP PO SCH ×2 (08:11→17:47)
[2017-11-07] MEDS: CARVEDILOL 12.5 MG TAB PO SCH ×2 (08:24→20:45)
[2017-11-07] MEDS: INSULIN ASPART 100 UNITS/ML 3 ML PEN SC SCH ×4 (08:25→20:39)
[2017-11-07] MEDS: INSULIN GLARGINE SOLOSTAR 100 UNITS/ML 3 ML PEN SC SCH ×2 (08:26→20:44)
--- NOTE | 2017-11-07 12:08 | PROGRESS NOTE ---
DATE: 11/07/2017 CARDIOLOGY CONSULTATION FOLLOWUP NOTE The patient seen and examined. Chart, medications, telemetry reviewed. SUBJECTIVE: The patient this morning continues to have persistent cough. Denies any chest pains. Notes no dizziness or lightheadedness. Notes no tachypalpitations. Denies worsening lower extremity edema, underwent dialysis yesterday. OBJECTIVE: VITAL SIGNS: Heart rate is 72, blood pressure is 129/62, blood pressure is low after dialysis yesterday but increasing today. NECK: Thin. There is no jugular venous distension with patient examined mostly upright. LUNGS: Reveal coarse rhonchorous cough but clear at the bases. CARDIOVASCULAR: Regular. There is no S3 gallop. ABDOMEN: Soft, nontender. EXTREMITIES: Without cyanosis or clubbing. There is no peripheral edema. LABORATORY STUDIES: Sodium is 132, potassium is 4.5, chloride is 97, bicarbonate is 23, BUN is 51, and creatinine is 3.4. Weight is stable at usual dry weight. IMAGING DATA: Chest x-ray today demonstrates cardiomegaly with lungs clear. IMPRESSION: A 67-year-old female admitted with acute respiratory distress, mixed etiology, now improving predominantly with use of corticosteroids. Echocardiogram done and evaluation both cardiac and pulmonary status demonstrated significant decline in overall left ventricular function in the setting of patient with past had nonischemic cardiomyopathy. RECOMMENDATIONS: The patient is gradually improving though still limited by persistent cough and inability to lie flat, by her own description. Will continue for pulmonary treatments as ordered. The patient is on a reduced dose of carvedilol to aid in blood pressure and bronchospastic complaints. Will add low dose losartan to regimen for afterload reduction. Depending on clinical course progression, will plan on the right and left heart catheterization on Thursday. The patient will need to be able to lie flat for procedure. Discussed with her in detail, will reassess in a.m. MTDD
[2017-11-07] MEDS ORDERED: LOSARTAN POTASSIUM 25 MG TAB PO ONE (12:12)
--- NOTE | 2017-11-07 12:54 | Nephrology Progress Note ---
Nephrology Progress Note Date of Service Nov 07, 2017. Chief Complaint Follow-up for end-stage renal disease on hemodialysis. Maricarmen Menendez was seen and examined in her room this morning. She still has baseline shortness of breath, denies any other symptoms. Blood pressure stable. Had dialysis yesterday, had 1800 mL of UF only as her blood pressure dropped. Review of Systems A complete review of systems was performed. Pertinent positives are noted above. All other systems are negative. Vital Signs Last 8 Hrs Date Time Temp Pulse Resp B/P (MAP) Pulse Ox O2 Delivery O2 Flow Rate FiO2 11/07/17 11:00 71 18 94 Room Air 11/07/17 08:00 Nasal Cannula 2.0 11/07/17 07:44 76 18 93 Room Air 11/07/17 06:22 36.6 75 18 117/62 (80) 91 Room Air Last Recorded Weight Weight (Kilograms): 83.500 Physical Exam GENERAL: Middle-aged female, AAA x 3, pleasant, face puffy, not in any distress. NECK: Supple, no JVD. RESPIRATORY: Normal breathing efforts, no accessory muscle use, clear to auscultation bilaterally, no wheezes or rales. CARDIOVASCULAR: S1, S2 normal, rate rhythm regular. EXTREMITY: No lower extremity edema NEURO: speech fluent. PSYCHIATRY: Normal mood and judgment Family History FH: HTN (hypertension) Hypertension Social History Smoking Status: Never smoker Drug Use: none Marital Status: Housing Status: lives with family Occupation: retired . Retired. Never a smoker Laboratory Results Past 24 Hours 11/07/17 06:24 Test 11/06/17 16:23 11/06/17 20:00 11/07/17 06:24 11/07/17 07:34 Bedside Glucose 183 mg/dl (70-90) 182 mg/dl (70-90) 217 mg/dl (70-90) Anion Gap 12.0 mmol/L (3-11) Est Creatinine Clear Calc Drug Dose 15.6 ml/min Estimated GFR () 15.1 Estimated GFR (Non- 13.0 BUN/Creatinine Ratio 14.9 (10-20) Calcium Level 8.2 mg/dl (8.5-10.1) Test 11/07/17 11:40 Bedside Glucose 101 mg/dl (70-90) Allergies Coded Allergies: Hydralazine (Verified Allergy, Intermediate, rash, 10/30/17) Isosorbide Nitrate (Verified Allergy, Unknown, ITCHING, 10/30/17) EZE Inhibitors (Verified Adverse Reaction, Unknown, DUE TO CKD, 10/30/17) Medications Current Inpatient Medications Medications (Trade) Dose Ordered Sig/Tu Route Start Time Stop Time Status Last Admin Dose Admin Acetaminophen (Tylenol Tab) 650 mg Q4H PRN PO 11/03/17 10:15 12/03/17 10:14 Polyethylene (Miralax Powder Packet) 17 gm DAILY PRN PO 11/03/17 10:15 12/03/17 10:14 Ondansetron HCl (Zofran Inj) 4 mg Q6H PRN IV 11/03/17 10:15 12/03/17 10:14 11/05/17 04:17 4 MG Calcium Acetate (Phoslo Cap) 667 mg BIDM PO 11/03/17 17:00 12/03/17 16:59 11/07/17 08:11 667 MG Tiotropium [place] (Spiriva Handihaler Inhaler) 1 puff DAILY INH 11/04/17 09:00 12/04/17 08:59 11/07/17 08:11 1 PUFF Miscellaneous Information (Order Awaiting Action) 1 ea QS N/A 11/03/17 16:00 12/03/17 15:59 Albuterol/ Ipratropium (Duoneb) 3 ml QIDR INH 11/03/17 12:00 12/03/17 11:59 11/07/17 10:59 3 ML Formoterol Fumarate (Perforomist 20MCG/2ML Neb Soln) 20 mcg BIDR INH 11/03/17 20:00 12/03/17 19:59 11/07/17 07:40 20 MCG Albuterol/ Ipratropium (Duoneb) 3 ml Q2H PRN INH 11/03/17 11:00 12/03/17 10:59 11/03/17 23:06 3 ML Insulin Aspart (novoLOG ASPART) SLIDING SCALE PARAMETER ACHS SC 11/03/17 11:30 12/03/17 11:29 11/07/17 08:25 15 UNITS Guaifenesin (Mucinex Contr Rel Tab) 1,200 mg Q12 PO 11/03/17 21:00 12/03/17 20:59 11/07/17 08:11 1,200 MG Glucose (Glucose 40% Gel) 15-30 GRAMS 15 GRAMS... UD PRN PO 11/03/17 11:30 12/03/17 11:29 Glucose (Glucose Chew Tab) 4-8 Tablets 4 Tabl... UD PRN PO 11/03/17 11:30 12/03/17 11:29 Dextrose (Dextrose 50% 50ML Syringe) 25-50ML OF 50% DW IV FOR... UD PRN IV 11/03/17 11:30 12/03/17 11:29 Glucagon (Glucagon Inj) 1 mg UD PRN SQ 11/03/17 11:30 12/03/17 11:29 Heparin Sodium (Porcine) (Heparin Sq 5000 Unit/0.5ml) 5,000 unit Q12 SQ 11/03/17 21:00 12/03/17 20:59 11/04/17 21:29 5,000 UNIT Dornase Conor (Pulmozyme Inhalation Soln 2.5ml Amp) 2.5 ml BIDR INH 11/03/17 20:00 12/03/17 19:59 11/07/17 07:39 2.5 ML Dextromethorphan Polymer Complex (Delsym Susp) 30 mg Q8H PRN PO 11/03/17 21:30 12/03/17 21:29 11/07/17 08:11 30 MG Menthol (Nice Russ) 1 russ PRN PRN RUSS 11/03/17 21:45 12/03/17 21:44 11/03/17 21:49 1 RUSS Insulin Glargine (Lantus Solostar Pen) 18 units BID SC 11/04/17 21:00 12/03/17 20:59 11/07/17 08:26 18 UNITS Pantoprazole Sodium (Protonix Tab) 40 mg QAM PO 11/05/17 09:00 11/08/17 09:01 11/07/17 08:11 40 MG Calcium Carbonate (Tums Chew Tab) 500 mg Q6 PRN PO 11/05/17 11:15 12/05/17 11:14 11/05/17 19:06 500 MG Methylprednisolone Sodium Succinate 40 mg/Syringe 0.64 ml @ 1.5 mls/min Q12H IV 11/06/17 09:00 12/06/17 08:59 11/07/17 08:10 1.5 MLS/MIN Carvedilol (Coreg Tab) 6.25 mg BID PO 11/06/17 21:00 12/03/17 20:59 11/07/17 08:24 6.25 MG Fluticasone Propionate (Flonase Nasal [place]) 2 sprays BID NA 11/06/17 21:00 12/06/17 20:59 11/07/17 08:11 2 SPRAYS Losartan Potassium (coZAAR TAB) 25 mg QAM PO 11/08/17 09:00 12/08/17 08:59 Impression (1) ESRD (end stage renal disease) on dialysis (2) Bilateral pneumonia (3) COPD (chronic obstructive pulmonary disease) (4) Lung mass Recommendations --monitor electrolyte and volume status over the weekend, she is scheduled for cardiac catheterization Thursday morning and dialysis in the afternoon -- Blood pressure is well controlled. Continue Carvedilol -- Stable. Appropriate. on VITALY as outpatient -- Bilateral pulmonary infiltrates and 2.5 cm ERICH lesion. Await bronchoscopy results and Pulmonology recommendations, once cardiac catheterization is done. Will follow
--- NOTE | 2017-11-07 15:22 | Progress Note ---
Subjective Date of Service: Nov 07, 2017. Subjective Pt evaluation today including: conversation w/ patient, physical exam, lab review, review of inpatient medication list Pain: no pain PO Intake: adequate Voiding: no voiding problems patient doing okay, says she has a hard time breathing today, blames it on increased dialysis she still does not feel that she can lay flat for testing on Thursday reviewed labs eating okay, minimal cough, no chest pain or pressure Problem List Medical Problems: (1) Acute bronchitis Status: Acute (2) Bronchitis Status: Acute (3) Bronchopneumonia Status: Acute (4) CHF (congestive heart failure) Status: Acute (5) CHF exacerbation Status: Acute (6) Chronic cough Status: Acute (7) Chronic kidney disease on chronic dialysis Status: Acute (8) Chronic obstructive pulmonary disease Status: Acute (9) Chronic obstructive pulmonary disease Status: Acute (10) COPD exacerbation Status: Acute (11) COPD exacerbation Status: Acute (12) Elevated troponin level Status: Acute (13) End stage renal disease Status: Acute (14) Hyperkalemia Status: Acute (15) Hypoxia Status: Acute (16) Hypoxia Status: Acute (17) Hypoxia Status: Acute (18) Influenza Status: Acute (19) Osteomyelitis Status: Acute (20) Pulmonary edema Status: Acute (21) Renal failure Status: Acute (22) URI (upper respiratory infection) Status: Acute Review of Systems Constitutional: + weakness, + fatigue Respiratory: + shortness of breath, + dyspnea on exertion All Other Systems: Reviewed and Negative Medications Current Inpatient Medications Medications (Trade) Dose Ordered Sig/Tu Route Start Time Stop Time Status Last Admin Dose Admin Acetaminophen (Tylenol Tab) 650 mg Q4H PRN PO 11/03/17 10:15 12/03/17 10:14 Polyethylene (Miralax Powder Packet) 17 gm DAILY PRN PO 11/03/17 10:15 12/03/17 10:14 Ondansetron HCl (Zofran Inj) 4 mg Q6H PRN IV 11/03/17 10:15 12/03/17 10:14 11/05/17 04:17 4 MG Calcium Acetate (Phoslo Cap) 667 mg BIDM PO 11/03/17 17:00 12/03/17 16:59 11/07/17 08:11 667 MG Tiotropium [place] (Spiriva Handihaler Inhaler) 1 puff DAILY INH 11/04/17 09:00 12/04/17 08:59 11/07/17 08:11 1 PUFF Miscellaneous Information (Order Awaiting Action) 1 ea QS N/A 11/03/17 16:00 12/03/17 15:59 Albuterol/ Ipratropium (Duoneb) 3 ml QIDR INH 11/03/17 12:00 12/03/17 11:59 11/07/17 10:59 3 ML Formoterol Fumarate (Perforomist 20MCG/2ML Neb Soln) 20 mcg BIDR INH 11/03/17 20:00 12/03/17 19:59 11/07/17 07:40 20 MCG Albuterol/ Ipratropium (Duoneb) 3 ml Q2H PRN INH 11/03/17 11:00 12/03/17 10:59 11/03/17 23:06 3 ML Insulin Aspart (novoLOG ASPART) SLIDING SCALE PARAMETER ACHS SC 11/03/17 11:30 12/03/17 11:29 11/07/17 13:23 12 UNITS Guaifenesin (Mucinex Contr Rel Tab) 1,200 mg Q12 PO 11/03/17 21:00 12/03/17 20:59 11/07/17 08:11 1,200 MG Glucose (Glucose 40% Gel) 15-30 GRAMS 15 GRAMS... UD PRN PO 11/03/17 11:30 12/03/17 11:29 Glucose (Glucose Chew Tab) 4-8 Tablets 4 Tabl... UD PRN PO 11/03/17 11:30 12/03/17 11:29 Dextrose (Dextrose 50% 50ML Syringe) 25-50ML OF 50% DW IV FOR... UD PRN IV 11/03/17 11:30 12/03/17 11:29 Glucagon (Glucagon Inj) 1 mg UD PRN SQ 11/03/17 11:30 12/03/17 11:29 Heparin Sodium (Porcine) (Heparin Sq 5000 Unit/0.5ml) 5,000 unit Q12 SQ 11/03/17 21:00 12/03/17 20:59 11/04/17 21:29 5,000 UNIT Dornase [place] (Pulmozyme Inhalation Soln 2.5ml Amp) 2.5 ml BIDR INH 11/03/17 20:00 12/03/17 19:59 11/07/17 07:39 2.5 ML Dextromethorphan Polymer Complex (Delsym Susp) 30 mg Q8H PRN PO 11/03/17 21:30 12/03/17 21:29 11/07/17 08:11 30 MG Menthol (Nice Keila) 1 keila PRN PRN KEILA 11/03/17 21:45 12/03/17 21:44 11/03/17 21:49 1 KEILA Insulin Glargine (Lantus Solostar Pen) 18 units BID SC 11/04/17 21:00 12/03/17 20:59 11/07/17 08:26 18 UNITS Pantoprazole Sodium (Protonix Tab) 40 mg QAM PO 11/05/17 09:00 11/08/17 09:01 11/07/17 08:11 40 MG Calcium Carbonate (Tums Chew Tab) 500 mg Q6 PRN PO 11/05/17 11:15 12/05/17 11:14 11/05/17 19:06 500 MG Methylprednisolone Sodium Succinate 40 mg/Syringe 0.64 ml @ 1.5 mls/min Q12H IV 11/06/17 09:00 12/06/17 08:59 11/07/17 08:10 1.5 MLS/MIN Carvedilol (Coreg Tab) 6.25 mg BID PO 11/06/17 21:00 12/03/17 20:59 11/07/17 08:24 6.25 MG Fluticasone Propionate (Flonase Nasal [place]) 2 sprays BID NA 11/06/17 21:00 12/06/17 20:59 11/07/17 08:11 2 SPRAYS Losartan Potassium (coZAAR TAB) 25 mg QAM PO 11/08/17 09:00 12/08/17 08:59 Objective Vital Signs Date Time Temp Pulse Resp B/P (MAP) Pulse Ox O2 Delivery O2 Flow Rate FiO2 11/07/17 11:00 71 18 94 Room Air 11/07/17 08:00 Nasal Cannula 2.0 11/07/17 07:44 76 18 93 Room Air 11/07/17 06:22 36.6 75 18 117/62 (80) 91 Room Air 11/07/17 00:00 Nasal Cannula 2.0 11/06/17 22:47 36.6 74 20 133/67 (89) 95 Nasal Cannula 2.0 11/06/17 21:05 74 148/89 (108) 11/06/17 20:37 74 18 96 Nasal Cannula 2.0 11/06/17 16:00 Nasal Cannula 2.0 11/06/17 15:38 36.7 70 20 123/75 (91) 95 Nasal Cannula 2.0 Physical Exam General Appearance: WD/WN, no apparent distress Eyes: normal inspection, EOMI, sclerae normal Neck: supple, no adenopathy, no JVD, trachea midline Respiratory/Chest: chest non-tender, lungs clear, normal breath sounds, no respiratory distress, no accessory muscle use Cardiovascular: regular rate, rhythm, no edema, no gallop, no JVD, no murmur Abdomen: normal bowel sounds, non tender, soft, no organomegaly Extremities: normal range of motion, non-tender, normal inspection, no pedal edema, no calf tenderness Neurologic/Psychiatric: 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-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 nml as tested, alert, normal mood/affect, oriented x 3, + motor weakness Skin: normal color, warm/dry, no rash Lymphatic: no adenopathy Laboratory Results Last 24 Hours Test 11/06/17 16:23 11/06/17 20:00 11/07/17 06:24 11/07/17 07:34 Bedside Glucose 183 mg/dl 182 mg/dl 217 mg/dl Sodium Level 132 mmol/L Potassium Level 4.5 mmol/L Chloride Level 97 mmol/L Carbon Dioxide Level 23 mmol/L Anion Gap 12.0 mmol/L Blood Urea Nitrogen 51 mg/dl Creatinine 3.41 mg/dl Est Creatinine Clear Calc Drug Dose 15.6 ml/min Estimated GFR () 15.1 Estimated GFR (Non- 13.0 BUN/Creatinine Ratio 14.9 Random Glucose 141 mg/dl Calcium Level 8.2 mg/dl Test 11/07/17 11:40 Bedside Glucose 101 mg/dl Assessment and Plan 67-year-old female with chronic respiratory failure with hypoxia was failed outpatient treatment and has concern for persistent infectious process in her lung/pneumonia. Dyspnea, chronic respiratory failure w/ hypoxemia, h/o COPD, h/o asthma, ?STEPHEN vs OHV: - Admitted to med/surg - Levaquin 750 mg daily- pulmonary does not think infectious, discontinued - IV Solu Medrol- currently at 40 mg BID, will continue this dose for now since she feels better on Solu Medrol - DuoNebs QID and PRN for SOB/wheezing - Delsym PRN for cough, Mucinex BID - Continue home inhalers- Dulera and Spiriva - Influenza negative; MRSA swab negative - ECHO w/ EF 20-25%, grade II diastolic dysfunction, LVH - Pulmonary consulted- believe RHC indicated - Cardiology consulted- new systolic dysfunction--> R/L HC possibly on 11/09, need patient to be able to lay flat ESRD on HD MWF: - Continue PhosLo and Nephrocaps - Consult nephrology for dialysis management - dialyzing more aggressively to try to allow her to lay flat T2DM- hgbA1c 8.4% w/ hyperglycemia secondary to IV Solu Medrol- STABLE: - Increase Lantus 13 u BID to 18 u BID while receiving steroids - BSG ACHS and ISS- adjusted sliding scale to CF 20, CHO ratio 1:6 (pharmacy recommendations based off last inpatient stay) - monitor for hypoglycemia Chronic diastolic CHF w/ new systolic dysfunction: - Coreg 25 mg BID- decreased to 6.25 mg BID to allow for high BPs per cardiology - ECHO w/ EF 20-25%, grade II diastolic dysfunction, LVH - Cardiology following - will consider adding EZE if BP allows after procedures on Thursday R / toe ulceration: Wound care consulted, appreciate recommendations GI prophylaxis: Protonix daily + Tums PRN DVT prophylaxis: Heparin BID Code status: LEVEL I, FULL Dispo: From home. lives w/ son- PT/OT and CM consulted
[2017-11-07] MEDS: POLYETHYLENE (MIRALAX) 17 GM PACK PO PRN (15:52)
[2017-11-08] VITALS (10 sets, daily range): BP systolic 137–145; BP diastolic 64–81; PULSE 64–75; TEMP 36.4; O2SAT 93–97
[2017-11-08 06:32] LABS: CALCIUM 8.5 mg/dl (8.5-10.1); CREATININE 4.51 mg/dl (0.60-1.20); POTASSIUM 4.8 mmol/L (3.5-5.1)
[2017-11-08] MEDS: TIOTROPIUM BROMIDE 5 PUFF/90 MCG INH INH SCH (07:36)
[2017-11-08] MEDS: DEXTROMETHORPHAN POLYMR COMPLX 30 MG/5 ML UDP PO PRN (07:36)
[2017-11-08] MEDS: CALCIUM ACETATE 667MG GELCAP PO SCH ×2 (07:37→17:41)
[2017-11-08] MEDS: HEPARIN SOD 5000 UNIT/0.5 ML CARP SQ SCH ×3 (07:38→21:00)
[2017-11-08] MEDS: INSULIN GLARGINE SOLOSTAR 100 UNITS/ML 3 ML PEN SC SCH ×2 (07:38→21:09)
[2017-11-08] MEDS: GUAIFENESIN 600 MG TABCR PO SCH ×2 (07:39→20:55)
[2017-11-08] MEDS: CARVEDILOL 12.5 MG TAB PO SCH ×2 (07:40→21:07)
[2017-11-08] MEDS: CALCIUM CARBONATE 500 MG CHEWABLE PO PRN (07:41)
[2017-11-08] MEDS: PANTOprazole SOD 40 MG TAB PO SCH (07:41)
[2017-11-08] MEDS: LOSARTAN POTASSIUM 25 MG TAB PO SCH (07:41)
[2017-11-08] MEDS: FLUTICASONE PROPIONATE NA SPR 16 GM BTL SCH ×2 (07:42→21:00)
[2017-11-08] MEDS: METHYLPREDNISOLONE IV 40 MG in SYRINGE 0 ML IV SCH ×2 (07:47→21:03)
[2017-11-08] MEDS: FORMOTEROL FUMA NEBULIZER SOLN 20 MCG/2 ML VIAL INH SCH ×2 (07:48→19:47)
[2017-11-08] MEDS: ALBUT/IPRATROP 3MG/0.5MG NEB 3 ML VIAL INH SCH ×5 (07:48→19:56)
[2017-11-08] MEDS: DORNASE ALFA 2.5 ML AMP INH SCH ×2 (07:48→19:47)
[2017-11-08] MEDS: INSULIN ASPART 100 UNITS/ML 3 ML PEN SC SCH ×4 (08:01→21:09)
[2017-11-08] MEDS ORDERED: DC ALL ANTICOAGULANTS ONE (09:45)
--- NOTE | 2017-11-08 11:13 | PROGRESS NOTE ---
DATE: 11/08/2017 CARDIOLOGY CONSULTATION FOLLOWUP NOTE The patient seen and examined. Chart, laboratory studies reviewed. SUBJECTIVE: The patient feels improved, ambulatory in the hallway this morning. Notes no dizziness or lightheadedness. Notes no chest pain or discomfort. Cough is diminished. Notes no significant sputum production. OBJECTIVE: VITAL SIGNS: Heart rate is 65, blood pressure is 138/64. NECK: Thick. There is no distinct jugular venous distention. LUNGS: Reveal few scattered wheezes and rhonchi with forced cough but improved from past examinations. CARDIOVASCULAR: Regular. There is no S3 gallop. ABDOMEN: Soft. EXTREMITIES: Without cyanosis or clubbing. There is no peripheral edema. IMPRESSION: A 67-year-old female with issues as follows: 1. Acute on chronic mixed respiratory failure. 2. Newly diagnosed diffuse cardiomyopathy. 3. End-stage renal disease on chronic dialysis therapy. RECOMMENDATIONS: The patient appears to be tolerated medication as well with reduction of carvedilol and addition of losartan. Will anticipate planned right and left heart catheterization in a.m. The patient appears agreeable at this time. [facility]
[2017-11-08] MEDS ORDERED: NURSING VERBAL MED ORDER ONE (11:15)
--- NOTE | 2017-11-08 12:45 | Nephrology Progress Note ---
Nephrology Progress Note Date of Service Nov 08, 2017. Chief Complaint Follow-up for end-stage renal disease on hemodialysis. Maricarmen Menendez was seen and examined in her room this morning. No overnight events. Blood pressure has been stable. Has baseline shortness of breath without further worsening. Appetite has been decent. Review of Systems A complete review of systems was performed. Pertinent positives are noted above. All other systems are negative. Vital Signs Last 8 Hrs Date Time Temp Pulse Resp B/P (MAP) Pulse Ox O2 Delivery O2 Flow Rate FiO2 11/08/17 08:08 36.4 65 16 138/64 (88) 96 Nasal Cannula 2.0 11/08/17 08:00 Nasal Cannula 2.0 Humidified Oxygen 11/08/17 07:48 72 18 97 Room Air Last Recorded Weight Weight (Kilograms): 85.300 Physical Exam GENERAL: Middle-aged female, AAA x 3, pleasant, face puffy, not in any distress. NECK: Supple, no JVD. RESPIRATORY: Normal breathing efforts, no accessory muscle use, clear to auscultation bilaterally, no wheezes or rales. CARDIOVASCULAR: S1, S2 normal, rate rhythm regular. EXTREMITY: No lower extremity edema NEURO: speech fluent. PSYCHIATRY: Normal mood and judgment Family History FH: HTN (hypertension) Hypertension Social History Smoking Status: Never smoker Drug Use: none Marital Status: Housing Status: lives with family Occupation: retired . Retired. Never a smoker Laboratory Results Past 24 Hours 11/08/17 05:38 Test 11/07/17 11:40 11/07/17 17:05 11/07/17 20:39 11/08/17 05:38 Bedside Glucose 101 mg/dl (70-90) 142 mg/dl (70-90) 137 mg/dl (70-90) Anion Gap 12.0 mmol/L (3-11) Est Creatinine Clear Calc Drug Dose 11.8 ml/min Estimated GFR () 10.8 Estimated GFR (Non- 9.3 BUN/Creatinine Ratio 17.9 (10-20) Calcium Level 8.5 mg/dl (8.5-10.1) Test 11/08/17 07:32 Bedside Glucose 168 mg/dl (70-90) Allergies Coded Allergies: Hydralazine (Verified Allergy, Intermediate, rash, 10/30/17) Isosorbide Nitrate (Verified Allergy, Unknown, ITCHING, 10/30/17) EZE Inhibitors (Verified Adverse Reaction, Unknown, DUE TO CKD, 10/30/17) Medications Current Inpatient Medications Medications (Trade) Dose Ordered Sig/Tu Route Start Time Stop Time Status Last Admin Dose Admin Acetaminophen (Tylenol Tab) 650 mg Q4H PRN PO 11/03/17 10:15 12/03/17 10:14 Polyethylene (Miralax Powder Packet) 17 gm DAILY PRN PO 11/03/17 10:15 12/03/17 10:14 11/07/17 15:52 17 GM Ondansetron HCl (Zofran Inj) 4 mg Q6H PRN IV 11/03/17 10:15 12/03/17 10:14 11/05/17 04:17 4 MG Calcium Acetate (Phoslo Cap) 667 mg BIDM PO 11/03/17 17:00 12/03/17 16:59 11/08/17 07:37 667 MG Tiotropium [place] (Spiriva Handihaler Inhaler) 1 puff DAILY INH 11/04/17 09:00 12/04/17 08:59 11/08/17 07:36 1 PUFF Miscellaneous Information (Order Awaiting Action) 1 ea QS N/A 11/03/17 16:00 12/03/17 15:59 Albuterol/ Ipratropium (Duoneb) 3 ml QIDR INH 11/03/17 12:00 12/03/17 11:59 11/08/17 07:48 3 ML Formoterol Fumarate (Perforomist 20MCG/2ML Neb Soln) 20 mcg BIDR INH 11/03/17 20:00 12/03/17 19:59 11/08/17 07:48 20 MCG Albuterol/ Ipratropium (Duoneb) 3 ml Q2H PRN INH 11/03/17 11:00 12/03/17 10:59 11/03/17 23:06 3 ML Insulin Aspart (novoLOG ASPART) SLIDING SCALE PARAMETER ACHS SC 11/03/17 11:30 12/03/17 11:29 11/08/17 08:01 10 UNITS Guaifenesin (Mucinex Contr Rel Tab) 1,200 mg Q12 PO 11/03/17 21:00 12/03/17 20:59 11/07/17 20:45 1,200 MG Glucose (Glucose 40% Gel) 15-30 GRAMS 15 GRAMS... UD PRN PO 11/03/17 11:30 12/03/17 11:29 Glucose (Glucose Chew Tab) 4-8 Tablets 4 Tabl... UD PRN PO 11/03/17 11:30 12/03/17 11:29 Dextrose (Dextrose 50% 50ML Syringe) 25-50ML OF 50% DW IV FOR... UD PRN IV 11/03/17 11:30 12/03/17 11:29 Glucagon (Glucagon Inj) 1 mg UD PRN SQ 11/03/17 11:30 12/03/17 11:29 Heparin Sodium (Porcine) (Heparin Sq 5000 Unit/0.5ml) 5,000 unit Q12 SQ 11/03/17 21:00 11/09/17 00:00 11/08/17 07:38 5,000 UNIT Dornase Conor (Pulmozyme Inhalation Soln 2.5ml Amp) 2.5 ml BIDR INH 11/03/17 20:00 12/03/17 19:59 11/08/17 07:48 2.5 ML Dextromethorphan Polymer Complex (Delsym Susp) 30 mg Q8H PRN PO 11/03/17 21:30 12/03/17 21:29 11/07/17 15:40 30 MG Menthol (Nice Russ) 1 russ PRN PRN RUSS 11/03/17 21:45 12/03/17 21:44 11/03/17 21:49 1 RUSS Insulin Glargine (Lantus Solostar Pen) 18 units BID SC 11/04/17 21:00 12/03/17 20:59 11/08/17 07:38 18 UNITS Calcium Carbonate (Tums Chew Tab) 500 mg Q6 PRN PO 11/05/17 11:15 12/05/17 11:14 11/08/17 07:41 500 MG Methylprednisolone Sodium Succinate 40 mg/Syringe 0.64 ml @ 1.5 mls/min Q12H IV 11/06/17 09:00 12/06/17 08:59 11/08/17 07:47 1.5 MLS/MIN Carvedilol (Coreg Tab) 6.25 mg BID PO 11/06/17 21:00 12/03/17 20:59 11/08/17 07:40 6.25 MG Fluticasone Propionate (Flonase Nasal [place]) 2 sprays BID NA 11/06/17 21:00 12/06/17 20:59 11/08/17 07:42 2 SPRAYS Losartan Potassium (coZAAR TAB) 25 mg QAM PO 11/08/17 09:00 12/08/17 08:59 11/08/17 07:41 25 MG Impression (1) ESRD (end stage renal disease) on dialysis (2) Bilateral pneumonia (3) COPD (chronic obstructive pulmonary disease) (4) Lung mass Recommendations --plan for dialysis tomorrow morning, try to to UF as tolerated to improve volume status and help with lying down with cardiac catheterization after -- Blood pressure is well controlled. Continue Carvedilol -- Stable. Appropriate. on VITALY as outpatient -- Bilateral pulmonary infiltrates and 2.5 cm ERICH lesion. Await bronchoscopy results and Pulmonology recommendations, once cardiac catheterization is done. Will follow
[2017-11-08] MEDS: POLYETHYLENE (MIRALAX) 17 GM PACK PO PRN (13:39)
--- NOTE | 2017-11-08 22:02 | Progress Note ---
Subjective Date of Service: Nov 08, 2017. Subjective Pt evaluation today including: conversation w/ patient, physical exam, lab review, review of inpatient medication list Pain: no pain PO Intake: adequate Voiding: no voiding problems patient breathing the same, minimal cough, poor sleep last night eating well reviewed labs, Cr is 4.5, Na [address] Pillai, plan for HD in the morning, ultrafiltration to try to allow patient to lay flat for catheterization Problem List Medical Problems: (1) Acute bronchitis Status: Acute (2) Bronchitis Status: Acute (3) Bronchopneumonia Status: Acute (4) CHF (congestive heart failure) Status: Acute (5) CHF exacerbation Status: Acute (6) Chronic cough Status: Acute (7) Chronic kidney disease on chronic dialysis Status: Acute (8) Chronic obstructive pulmonary disease Status: Acute (9) Chronic obstructive pulmonary disease Status: Acute (10) COPD exacerbation Status: Acute (11) COPD exacerbation Status: Acute (12) Elevated troponin level Status: Acute (13) End stage renal disease Status: Acute (14) Hyperkalemia Status: Acute (15) Hypoxia Status: Acute (16) Hypoxia Status: Acute (17) Hypoxia Status: Acute (18) Influenza Status: Acute (19) Osteomyelitis Status: Acute (20) Pulmonary edema Status: Acute (21) Renal failure Status: Acute (22) URI (upper respiratory infection) Status: Acute Review of Systems Constitutional: + weakness Respiratory: + cough, + shortness of breath, + dyspnea on exertion Psychiatric: + insomnia All Other Systems: Reviewed and Negative Medications Current Inpatient Medications Medications (Trade) Dose Ordered Sig/Tu Route Start Time Stop Time Status Last Admin Dose Admin Acetaminophen (Tylenol Tab) 650 mg Q4H PRN PO 11/03/17 10:15 12/03/17 10:14 Polyethylene (Miralax Powder Packet) 17 gm DAILY PRN PO 11/03/17 10:15 12/03/17 10:14 11/08/17 13:39 17 GM Ondansetron HCl (Zofran Inj) 4 mg Q6H PRN IV 11/03/17 10:15 12/03/17 10:14 11/05/17 04:17 4 MG Calcium Acetate (Phoslo Cap) 667 mg BIDM PO 11/03/17 17:00 12/03/17 16:59 3/25/18 17:41 667 MG Tiotropium [place] (Spiriva Handihaler Inhaler) 1 puff DAILY INH 11/04/17 09:00 12/04/17 08:59 11/08/17 07:36 1 PUFF Miscellaneous Information (Order Awaiting Action) 1 ea QS N/A 11/03/17 16:00 12/03/17 15:59 Albuterol/ Ipratropium (Duoneb) 3 ml QIDR INH 11/03/17 12:00 12/03/17 11:59 11/08/17 15:09 3 ML Formoterol Fumarate (Perforomist 20MCG/2ML Neb Soln) 20 mcg BIDR INH 11/03/17 20:00 12/03/17 19:59 11/08/17 19:47 20 MCG Albuterol/ Ipratropium (Duoneb) 3 ml Q2H PRN INH 11/03/17 11:00 12/03/17 10:59 11/03/17 23:06 3 ML Insulin Aspart (novoLOG ASPART) SLIDING SCALE PARAMETER ACHS SC 11/03/17 11:30 12/03/17 11:29 11/08/17 21:09 2 UNITS Guaifenesin (Mucinex Contr Rel Tab) 1,200 mg Q12 PO 11/03/17 21:00 12/03/17 20:59 11/07/17 20:45 1,200 MG Glucose (Glucose 40% Gel) 15-30 GRAMS 15 GRAMS... UD PRN PO 11/03/17 11:30 12/03/17 11:29 Glucose (Glucose Chew Tab) 4-8 Tablets 4 Tabl... UD PRN PO 11/03/17 11:30 12/03/17 11:29 Dextrose (Dextrose 50% 50ML Syringe) 25-50ML OF 50% DW IV FOR... UD PRN IV 11/03/17 11:30 12/03/17 11:29 Glucagon (Glucagon Inj) 1 mg UD PRN SQ 11/03/17 11:30 12/03/17 11:29 Heparin Sodium (Porcine) (Heparin Sq 5000 Unit/0.5ml) 5,000 unit Q12 SQ 11/03/17 21:00 11/09/17 00:00 11/04/17 21:29 5,000 UNIT Dornase [place] (Pulmozyme Inhalation Soln 2.5ml Amp) 2.5 ml BIDR INH 11/03/17 20:00 12/03/17 19:59 11/08/17 19:47 2.5 ML Dextromethorphan Polymer Complex (Delsym Susp) 30 mg Q8H PRN PO 11/03/17 21:30 12/03/17 21:29 11/07/17 15:40 30 MG Menthol (Nice [place]) 1 keila PRN PRN KEILA 11/03/17 21:45 12/03/17 21:44 11/03/17 21:49 1 KEILA Insulin Glargine (Lantus Solostar Pen) 18 units BID SC 11/04/17 21:00 12/03/17 20:59 11/08/17 21:09 18 UNITS Calcium Carbonate (Tums Chew Tab) 500 mg Q6 PRN PO 11/05/17 11:15 12/05/17 11:14 11/08/17 07:41 500 MG Methylprednisolone Sodium Succinate 40 mg/Syringe 0.64 ml @ 1.5 mls/min Q12H IV 11/06/17 09:00 12/06/17 08:59 11/08/17 21:03 1.5 MLS/MIN Carvedilol (Coreg Tab) 6.25 mg BID PO 11/06/17 21:00 12/03/17 20:59 11/08/17 21:07 6.25 MG Fluticasone Propionate (Flonase Nasal [place]) 2 sprays BID NA 11/06/17 21:00 12/06/17 20:59 11/08/17 07:42 2 SPRAYS Losartan Potassium (coZAAR TAB) 25 mg QAM PO 11/08/17 09:00 12/08/17 08:59 11/08/17 07:41 25 MG Objective Vital Signs Date Time Temp Pulse Resp B/P (MAP) Pulse Ox O2 Delivery O2 Flow Rate FiO2 11/08/17 21:06 75 16 145/72 (96) 95 Room Air 11/08/17 19:48 72 18 96 Room Air 11/08/17 16:19 36.4 67 18 137/79 (98) 95 Room Air 11/08/17 16:00 95 Room Air 11/08/17 15:09 64 18 94 Room Air 11/08/17 11:11 68 18 93 Room Air 11/08/17 08:08 36.4 65 16 138/64 (88) 96 Nasal Cannula 2.0 11/08/17 08:00 Nasal Cannula 2.0 Humidified Oxygen 11/08/17 07:48 72 18 97 Room Air 11/08/17 00:00 95 Nasal Cannula 2.0 Humidified Oxygen 11/07/17 23:57 36.4 70 20 159/75 (103) 97 Nasal Cannula 2.0 Humidified Oxygen Physical Exam General Appearance: no apparent distress, + obese Eyes: normal inspection, EOMI, sclerae normal ENT: normal ENT inspection, hearing grossly normal, pharynx normal Neck: supple, no adenopathy, no JVD, trachea midline Respiratory/Chest: chest non-tender, normal breath sounds, no respiratory distress, no accessory muscle use, + decreased breath sounds, + rhonchi Cardiovascular: regular rate, rhythm, no edema, no gallop, no JVD, no murmur Abdomen: normal bowel sounds, non tender, soft, no organomegaly Extremities: normal range of motion, non-tender, normal inspection, no pedal edema, no calf tenderness, pelvis stable Neurologic/Psychiatric: truck farmer II-XII nml as tested, alert, normal mood/affect, oriented x 3, + motor weakness Skin: normal color, warm/dry, no rash Laboratory Results Last 24 Hours Test 11/08/17 05:38 11/08/17 07:32 11/08/17 11:42 11/08/17 16:52 Sodium Level 129 mmol/L Potassium Level 4.8 mmol/L Chloride Level 96 mmol/L Carbon Dioxide Level 21 mmol/L Anion Gap 12.0 mmol/L Blood Urea Nitrogen 81 mg/dl Creatinine 4.51 mg/dl Est Creatinine Clear Calc Drug Dose 11.8 ml/min Estimated GFR () 10.8 Estimated GFR (Non- 9.3 BUN/Creatinine Ratio 17.9 Random Glucose 173 mg/dl Calcium Level 8.5 mg/dl Bedside Glucose 168 mg/dl 237 mg/dl 228 mg/dl Test 11/08/17 20:18 Bedside Glucose 116 mg/dl Assessment and Plan 67-year-old female with chronic respiratory failure with hypoxia was failed outpatient treatment and has concern for persistent infectious process in her lung/pneumonia. Dyspnea, chronic respiratory failure w/ hypoxemia, h/o COPD, h/o asthma, ?STEPHEN vs OHV: - IV Solu Medrol- currently at 40 mg BID, will continue this dose for now since she feels better on Solu Medrol and want her breathing well enough to lay flat tomorrow - DuoNebs QID and PRN for SOB/wheezing - Delsym PRN for cough, Mucinex BID - Continue home inhalers- Dulera and Spiriva - Influenza negative; MRSA swab negative - ECHO w/ EF 20-25%, grade II diastolic dysfunction, LVH, the reduced EF is a new finding - Pulmonary consulted- believe RHC indicated - Cardiology consulted- new systolic dysfunction--> R/L HC possibly on 11/09, need patient to be able to lay flat plan for left and right heart catheterization tomorrow after HD ESRD on HD MWF: - Continue PhosLo and Nephrocaps - Consult nephrology for dialysis management - dialyzing more aggressively to try to allow her to lay flat - plan for HD tomorrow AM prior to catheterization T2DM- hgbA1c 8.4% w/ hyperglycemia secondary to IV Solu Medrol- STABLE: - Increase Lantus 13 u BID to 18 u BID while receiving steroids - BSG ACHS and ISS- adjusted sliding scale to CF 20, CHO ratio 1:6 (pharmacy recommendations based off last inpatient stay) - monitor for hypoglycemia, no episodes currently Chronic diastolic CHF w/ new systolic dysfunction: - Coreg 25 mg BID- decreased to 6.25 mg BID to allow for high BPs per cardiology - ECHO w/ EF 20-25%, grade II diastolic dysfunction, LVH - Cardiology following - will consider adding EZE if BP allows after procedures on Thursday R / toe ulceration: Wound care consulted, appreciate recommendations GI prophylaxis: Protonix daily + Tums PRN DVT prophylaxis: Heparin BID Code status: LEVEL I, FULL Dispo: From home. lives w/ son- PT/OT and CM consulted
[2017-11-09] VITALS (28 sets, daily range): BP systolic 110–164; BP diastolic 59–82; PULSE 64–81; TEMP 36.2–36.8; O2SAT 91–97
[2017-11-09] MEDS: INSULIN ASPART 100 UNITS/ML 3 ML PEN SC SCH ×5 (06:17→20:50)
[2017-11-09] MEDS: FORMOTEROL FUMA NEBULIZER SOLN 20 MCG/2 ML VIAL INH SCH ×2 (06:57→20:28)
[2017-11-09] MEDS: DORNASE ALFA 2.5 ML AMP INH SCH ×2 (06:57→20:28)
[2017-11-09] MEDS: ALBUT/IPRATROP 3MG/0.5MG NEB 3 ML VIAL INH SCH ×4 (06:57→20:29)
[2017-11-09 07:27] LABS: HEMATOCRIT 35.1 % (37-47); HEMOGLOBIN 11.5 g/dL (12.0-16.0); MEAN CELL VOLUME 96.4 fL (80-100); MEAN CORPUSCULAR HEMOGLOBIN 31.6 pg (25-34); MEAN CORPUSCULAR HGB CONC 32.8 g/dl (32-36); MEAN PLATELET VOLUME 9.3 fL (7.4-10.4); NUCLEATED RED BLOOD CELL ABS 0.09 K/uL (0-0); PLATELET COUNT 243 K/uL (130-400); RED CELL DISTRIBUTION WIDTH SD 63.5 fL (36.4-46.3); WHITE BLOOD COUNT 11.97 K/uL (4.8-10.8)
[2017-11-09] MEDS: METHYLPREDNISOLONE IV 40 MG in SYRINGE 0 ML IV SCH (07:39)
[2017-11-09] MEDS: ONDANSETRON INJ 2 MG/ML 2 ML VIAL IV PRN (07:39)
[2017-11-09] MEDS: CALCIUM ACETATE 667MG GELCAP PO SCH ×3 (08:00→17:11)
[2017-11-09] MEDS: FLUTICASONE PROPIONATE NA SPR 16 GM BTL SCH ×2 (08:00→20:51)
[2017-11-09] MEDS: LOSARTAN POTASSIUM 25 MG TAB PO SCH ×2 (08:00→12:36)
[2017-11-09] MEDS: GUAIFENESIN 600 MG TABCR PO SCH ×4 (08:00→20:51)
[2017-11-09] MEDS: CARVEDILOL 12.5 MG TAB PO SCH ×3 (08:00→20:56)
[2017-11-09 08:13] LABS: CALCIUM 8.2 mg/dl (8.5-10.1); CREATININE 6.03 mg/dl (0.60-1.20); POTASSIUM 5.3 mmol/L (3.5-5.1)
[2017-11-09] MEDS ORDERED: NURSING VERBAL MED ORDER ONE ×2 (08:15→16:45)
[2017-11-09] MEDS: INSULIN GLARGINE SOLOSTAR 100 UNITS/ML 3 ML PEN SC SCH ×2 (08:52→21:06)
[2017-11-09] MEDS: TIOTROPIUM BROMIDE 5 PUFF/90 MCG INH INH SCH ×2 (09:00→12:35)
--- NOTE | 2017-11-09 12:24 | Dialysis Progress Note ---
Hemodialysis Note Date of Service Nov 09, 2017. Chief Complaint Follow-up for end-stage renal disease on hemodialysis. Maricarmen Menendez was seen and examined during hemodialysis in her room this morning. No overnight events. Blood pressure has been stable. Has baseline shortness of breath without further worsening. Appetite has been decent. Review of Systems A complete review of systems was performed. Pertinent positives are noted above. All other systems are negative. Vital Signs Last 8 Hrs Date Time Temp Pulse Resp B/P (MAP) Pulse Ox O2 Delivery O2 Flow Rate FiO2 11/09/17 11:37 36.7 72 118/67 (84) 11/09/17 11:30 75 110/68 11/09/17 11:28 71 16 93 Room Air 11/09/17 11:15 73 124/71 11/09/17 11:00 71 119/65 11/09/17 10:45 69 118/67 11/09/17 10:30 74 125/71 11/09/17 10:15 80 128/73 11/09/17 10:00 75 135/71 11/09/17 09:45 71 143/69 11/09/17 09:30 69 146/74 11/09/17 09:15 68 144/69 11/09/17 09:01 64 143/73 11/09/17 08:45 76 146/75 11/09/17 08:30 71 152/64 11/09/17 08:15 76 164/71 11/09/17 08:00 68 138/59 11/09/17 07:45 72 149/67 11/09/17 07:30 36.4 72 154/67 (96) 11/09/17 07:15 95 Room Air 11/09/17 07:00 77 18 95 Room Air 11/09/17 06:55 36.8 75 18 164/82 (109) 95 Room Air I & O 24-Hour Column 11/10/17 07:59 Output Total 3000 ml Balance -3000 ml Last Recorded Weight Weight (Kilograms): 86.800 Physical Exam GENERAL: elderly female, AAA x 3, pleasant, healthy-appearing, face puffy, not in any distress. NECK: Supple, no JVD. RESPIRATORY: Normal breathing efforts, no accessory muscle use, clear to auscultation bilaterally, no wheezes or rales. CARDIOVASCULAR: S1, S2 normal, rate rhythm regular. EXTREMITY: No lower extremity edema NEURO: speech fluent. PSYCHIATRY: Normal mood and judgment Family History Hypertension Social History Smoking Status: Never smoker Drug Use: none Marital Status: Housing Status: lives with family Occupation: retired . Retired. Never a smoker Laboratory Results Past 24 Hours 11/09/17 07:15 11/09/17 07:15 Test 11/08/17 16:52 11/08/17 20:18 11/09/17 06:09 11/09/17 07:15 Bedside Glucose 228 mg/dl (70-90) 116 mg/dl (70-90) 155 mg/dl (70-90) Red Blood Count 3.64 M/uL (4.2-5.4) Mean Corpuscular Volume 96.4 fL (80-100) Mean Corpuscular Hemoglobin 31.6 pg (25-34) Mean Corpuscular Hemoglobin Concent 32.8 g/dl (32-36) RDW Standard Deviation 63.5 fL (36.4-46.3) RDW Coefficient of Variation 19.0 % (11.5-14.5) Mean Platelet Volume 9.3 fL (7.4-10.4) Nucleated RBC Absolute Count (auto) 0.09 K/uL (0-0) Nucleated Red Blood Cells % 0.8 % Anion Gap 11.0 mmol/L (3-11) Est Creatinine Clear Calc Drug Dose 9.0 ml/min Estimated GFR () 7.6 Estimated GFR (Non- 6.5 BUN/Creatinine Ratio 18.4 (10-20) Calcium Level 8.2 mg/dl (8.5-10.1) Test 11/09/17 07:34 11/09/17 11:22 Bedside Glucose 169 mg/dl (70-90) 141 mg/dl (70-90) Allergies Coded Allergies: Hydralazine (Verified Allergy, Intermediate, rash, 10/30/17) Isosorbide Nitrate (Verified Allergy, Unknown, ITCHING, 10/30/17) EZE Inhibitors (Verified Adverse Reaction, Unknown, DUE TO CKD, 10/30/17) Medications Current Inpatient Medications Medications (Trade) Dose Ordered Sig/Tu Route Start Time Stop Time Status Last Admin Dose Admin Acetaminophen (Tylenol Tab) 650 mg Q4H PRN PO 11/03/17 10:15 12/03/17 10:14 Polyethylene (Miralax Powder Packet) 17 gm DAILY PRN PO 11/03/17 10:15 12/03/17 10:14 11/08/17 13:39 17 GM Ondansetron HCl (Zofran Inj) 4 mg Q6H PRN IV 11/03/17 10:15 12/03/17 10:14 11/09/17 07:39 4 MG Calcium Acetate (Phoslo Cap) 667 mg BIDM PO 11/03/17 17:00 12/03/17 16:59 11/08/17 17:41 667 MG Tiotropium [place] (Spiriva Handihaler Inhaler) 1 puff DAILY INH 11/04/17 09:00 12/04/17 08:59 11/08/17 07:36 1 PUFF Miscellaneous Information (Order Awaiting Action) 1 ea QS N/A 11/03/17 16:00 12/03/17 15:59 Albuterol/ Ipratropium (Duoneb) 3 ml QIDR INH 11/03/17 12:00 12/03/17 11:59 11/09/17 11:28 3 ML Formoterol Fumarate (Perforomist 20MCG/2ML Neb Soln) 20 mcg BIDR INH 11/03/17 20:00 12/03/17 19:59 11/09/17 06:57 20 MCG Albuterol/ Ipratropium (Duoneb) 3 ml Q2H PRN INH 11/03/17 11:00 12/03/17 10:59 11/03/17 23:06 3 ML Insulin Aspart (novoLOG ASPART) SLIDING SCALE PARAMETER ACHS SC 11/03/17 11:30 12/03/17 11:29 11/09/17 06:17 1 UNITS Guaifenesin (Mucinex Contr Rel Tab) 1,200 mg Q12 PO 11/03/17 21:00 12/03/17 20:59 11/07/17 20:45 1,200 MG Glucose (Glucose 40% Gel) 15-30 GRAMS 15 GRAMS... UD PRN PO 11/03/17 11:30 12/03/17 11:29 Glucose (Glucose Chew Tab) 4-8 Tablets 4 Tabl... UD PRN PO 11/03/17 11:30 12/03/17 11:29 Dextrose (Dextrose 50% 50ML Syringe) 25-50ML OF 50% DW IV FOR... UD PRN IV 11/03/17 11:30 12/03/17 11:29 Glucagon (Glucagon Inj) 1 mg UD PRN SQ 11/03/17 11:30 12/03/17 11:29 Dornase Conor (Pulmozyme Inhalation Soln 2.5ml Amp) 2.5 ml BIDR INH 11/03/17 20:00 12/03/17 19:59 11/09/17 06:57 2.5 ML Dextromethorphan Polymer Complex (Delsym Susp) 30 mg Q8H PRN PO 11/03/17 21:30 12/03/17 21:29 11/07/17 15:40 30 MG Menthol (Nice Russ) 1 russ PRN PRN RUSS 11/03/17 21:45 12/03/17 21:44 11/03/17 21:49 1 RUSS Insulin Glargine (Lantus Solostar Pen) 18 units BID SC 11/04/17 21:00 12/03/17 20:59 11/09/17 08:52 9 UNITS Calcium Carbonate (Tums Chew Tab) 500 mg Q6 PRN PO 11/05/17 11:15 12/05/17 11:14 11/08/17 07:41 500 MG Methylprednisolone Sodium Succinate 40 mg/Syringe 0.64 ml @ 1.5 mls/min Q12H IV 11/06/17 09:00 12/06/17 08:59 11/09/17 07:39 1.5 MLS/MIN Carvedilol (Coreg Tab) 6.25 mg BID PO 11/06/17 21:00 12/03/17 20:59 11/08/17 21:07 6.25 MG Fluticasone Propionate (Flonase Nasal [place]) 2 sprays BID NA 11/06/17 21:00 12/06/17 20:59 11/08/17 07:42 2 SPRAYS Losartan Potassium (coZAAR TAB) 25 mg QAM PO 11/08/17 09:00 12/08/17 08:59 11/08/17 07:41 25 MG Impression (1) ESRD (end stage renal disease) on dialysis (2) Bilateral pneumonia (3) COPD (chronic obstructive pulmonary disease) (4) Lung mass Recommendations --tolerating hemodialysis, will try to to UF as tolerated to improve volume status and help with lying down with cardiac catheterization after -- Blood pressure is well controlled. Continue Carvedilol -- Stable. Appropriate. on VITALY as outpatient -- Bilateral pulmonary infiltrates and 2.5 cm ERICH lesion. Await bronchoscopy results and Pulmonology recommendations, once cardiac catheterization is done. Will follow
--- NOTE | 2017-11-09 13:47 | PROGRESS NOTE ---
DATE: 11/09/2017 CARDIOLOGY CONSULTATION AND FOLLOWUP NOTE The patient seen and examined. Chart, medications, telemetry reviewed. SUBJECTIVE: The patient notes cough improved. She has been ambulatory in the hallway. She is "worn out" after dialysis, but otherwise notes no chest pain or discomfort. Notes no dizziness or lightheadedness. OBJECTIVE: VITAL SIGNS: Heart rate is 72, blood pressure is 118/67. NECK: Thick. There is no jugular venous distention. There are no carotid bruits. LUNGS: Clear to auscultation. CARDIOVASCULAR: Regular. There is no S3 gallop. ABDOMEN: Soft, nontender. EXTREMITIES: Without cyanosis or clubbing. There is no peripheral edema. IMPRESSION AND PLAN: A 67-year-old female admitted with mixed respiratory failure with newly observed worsening of underlying history of cardiomyopathy. She has been tentatively planned for both right and left heart catheterization to assess pulmonary pressures and left heart pressures. The patient declines both today. She notes that she is worried about complications to procedure and feels she would rather be managed medically if at all possible. She notes she would decline any surgical interventions for cardiac issues if indicated. After discussion with the patient as well as her family, we will plan on proceeding with medical management appropriately as per her request. In the interim, we will continue current medications with adjustments downward and carvedilol at current dosing of 6.25 twice per day and initiation of losartan 25 mg per day with room to increase it further if blood pressure allows. We will continue to follow the patient. The patient is clinically progressing. MTDD
--- NOTE | 2017-11-09 14:16 | Progress Note ---
Subjective Date of Service: Nov 09, 2017. Subjective Pt evaluation today including: conversation w/ patient, conversation w/ family , physical exam, chart review, lab review, review of studies, conversation w/ system consultant, review of inpatient medication list Seen patient when she was on dialysis, look tired, generalized weakness, however patient no special complaint Problem List Medical Problems: (1) Acute bronchitis Status: Acute (2) Bronchitis Status: Acute (3) Bronchopneumonia Status: Acute (4) CHF (congestive heart failure) Status: Acute (5) CHF exacerbation Status: Acute (6) Chronic cough Status: Acute (7) Chronic kidney disease on chronic dialysis Status: Acute (8) Chronic obstructive pulmonary disease Status: Acute (9) Chronic obstructive pulmonary disease Status: Acute (10) COPD exacerbation Status: Acute (11) COPD exacerbation Status: Acute (12) Elevated troponin level Status: Acute (13) End stage renal disease Status: Acute (14) Hyperkalemia Status: Acute (15) Hypoxia Status: Acute (16) Hypoxia Status: Acute (17) Hypoxia Status: Acute (18) Influenza Status: Acute (19) Osteomyelitis Status: Acute (20) Pulmonary edema Status: Acute (21) Renal failure Status: Acute (22) URI (upper respiratory infection) Status: Acute Review of Systems Constitutional: No fever, No chills, No sweats, No weight loss, No weakness, No fatigue, No problem reported Eyes: No worsening of vision, No eye pain, No redness, No discharge, No diplopia ENT: No hearing loss, No unusual epistaxis, No nasal symptoms, No sore throat, No tinnitus, No dental problems, No trouble swallowing Respiratory: No cough, No sputum, No wheezing, No shortness of breath, No dyspnea on exertion, No dyspnea at rest, No hemoptysis Cardiac: + edema (Trace edema), No chest pain, No orthopnea, No PND, No claudication, No palpitations Abdomen: No pain, No nausea, No vomiting, No diarrhea, No constipation Musculoskeletal: No joint pain, No muscle pain, No swelling, No calf pain Female : No dysuria, No urinary frequency, No hematuria, No incontinence, No abnormal vaginal bleeding, No vaginal discharge Neurologic: No memory loss, No paralysis, No weakness, No numbness/tingling, No vertigo, No balance problems Psychiatric: No depression symptoms, No anhedonism, No anxiety, No insomnia, No substance abuse Heme: No abnormal bleeding/bruising, No clotting problems, No swollen lymph nodes, No night sweats Endo: No fatigue, No excessive thirst, No excessive urination Skin: No rash, No itch, No new/changing skin lesions, No color change, No bleeding Objective Vital Signs Date Time Temp Pulse Resp B/P (MAP) Pulse Ox O2 Delivery O2 Flow Rate FiO2 11/09/17 11:37 36.7 72 118/67 (84) 11/09/17 11:30 75 110/68 11/09/17 11:28 71 16 93 Room Air 11/09/17 11:15 73 124/71 11/09/17 11:00 71 119/65 11/09/17 10:45 69 118/67 11/09/17 10:30 74 125/71 11/09/17 10:15 80 128/73 11/09/17 10:00 75 135/71 11/09/17 09:45 71 143/69 11/09/17 09:30 69 146/74 11/09/17 09:15 68 144/69 11/09/17 09:01 64 143/73 11/09/17 08:45 76 146/75 11/09/17 08:30 71 152/64 11/09/17 08:15 76 164/71 11/09/17 08:00 68 138/59 11/09/17 07:45 72 149/67 11/09/17 07:30 36.4 72 154/67 (96) 11/09/17 07:15 95 Room Air 11/09/17 07:00 77 18 95 Room Air 11/09/17 06:55 36.8 75 18 164/82 (109) 95 Room Air 11/09/17 00:00 Room Air 11/08/17 23:47 36.4 68 20 145/81 (102) 95 Room Air 11/08/17 21:06 75 16 145/72 (96) 95 Room Air 11/08/17 19:48 72 18 96 Room Air 11/08/17 16:19 36.4 67 18 137/79 (98) 95 Room Air 11/08/17 16:00 95 Room Air 11/08/17 15:09 64 18 94 Room Air Physical Exam General Appearance: + obese, + pertinent finding (Dialysis nurse reported facial swelling is better after the dialysis compared to before dialysis) Eyes: normal inspection, PERRL ENT: normal ENT inspection, hearing grossly normal Neck: supple Respiratory/Chest: normal breath sounds, + decreased breath sounds Cardiovascular: regular rate, rhythm, no gallop, no JVD, + pertinent finding ( Trace edema) Abdomen: normal bowel sounds, non tender, soft Extremities: normal range of motion, + swelling (Trace edema) Neurologic/Psychiatric: naphthalene operator helper II-XII nml as tested, no motor/sensory deficits, alert, normal mood/affect, oriented x 3 Laboratory Results Last 24 Hours Test 11/08/17 16:52 11/08/17 20:18 11/09/17 06:09 11/09/17 07:15 Bedside Glucose 228 mg/dl 116 mg/dl 155 mg/dl White Blood Count 11.97 K/uL Red Blood Count 3.64 M/uL Hemoglobin 11.5 g/dL Hematocrit 35.1 % Mean Corpuscular Volume 96.4 fL Mean Corpuscular Hemoglobin 31.6 pg Mean Corpuscular Hemoglobin Concent 32.8 g/dl RDW Standard Deviation 63.5 fL RDW Coefficient of Variation 19.0 % Platelet Count 243 K/uL Mean Platelet Volume 9.3 fL Nucleated RBC Absolute Count (auto) 0.09 K/uL Nucleated Red Blood Cells % 0.8 % Sodium Level 130 mmol/L Potassium Level 5.3 mmol/L Chloride Level 98 mmol/L Carbon Dioxide Level 22 mmol/L Anion Gap 11.0 mmol/L Blood Urea Nitrogen 111 mg/dl Creatinine 6.03 mg/dl Est Creatinine Clear Calc Drug Dose 9.0 ml/min Estimated GFR () 7.6 Estimated GFR (Non- 6.5 BUN/Creatinine Ratio 18.4 Random Glucose 169 mg/dl Calcium Level 8.2 mg/dl Test 11/09/17 07:34 11/09/17 11:22 Bedside Glucose 169 mg/dl 141 mg/dl Assessment and Plan 67-year-old female with chronic respiratory failure with hypoxia was failed outpatient treatment was admitted on November 03, 2017 because of possible pneumonia Dyspnea, chronic respiratory failure w/ hypoxemia upon admit, h/o COPD, h/o asthma, ?STEPHEN vs OHV: ESRD on HD MWF: Uncontrolled T2DM- hgbA1c 8.4% w/ hyperglycemia secondary to IV Solu Medrol- STABLE Chronic diastolic CHF w/ new systolic dysfunction, Was planning left heart cath , but was canceled because patient do not want to do it and cardiology agreed R /5th toe ulceration: Wound care consulted, appreciate recommendations Change IV Solu Medrol oral prednisone, continue DuoNebs QID and PRN for SOB/ wheezing, continue Delsym PRN for cough, Mucinex BID , continue home inhalers- Dulera and Spiriva Polyp - Influenza negative; MRSA swab negative - ECHO w/ EF 20-25%, grade II diastolic dysfunction, LVH, the reduced EF is a new finding - Pulmonary consulted- believe RHC indicated - Cardiology consulted, was planning to have r/L HC possibly today, need patient to be able to lay flat plan for left and right heart catheterization today after HD, however it was canceled because patient don't wanted to do it and cardiology feel is okay to follow-up with outpatient Continue dialysis, nephrology follow-up, continue PhosLo and Nephrocaps Continue to adjust Lantus while receiving steroids GI prophylaxis: Protonix daily + Tums PRN DVT prophylaxis: Heparin BID Code status: LEVEL I, FULL Dispo: From home. lives w/ son- PT/OT and CM consulted, increase activity possible discharge home tomorrow Continued [facility] stay due to: multiple IV medications needed Discharge planning: home
--- NOTE | 2017-11-09 14:56 | PULMONARY PROGRESS NOTE ---
DATE: 11/09/2017 TIME: 2:30 p.m. SUBJECTIVE: The patient is feeling much better. She has numerous family members with her at present. She had dialysis today. The patient declined to undergo cardiac catheterization. Her breathing is much better than it was at the time of admission. Her oxygenation has dramatically improved. Her saturations were in the mid 80s on oxygen at the time of admission and now she is 94% on room air. She still has some cough but it is less. The patient continues to be overall quite anxious. She states she has not coughed up much phlegm since admission. She states that some medicines we gave her tightened her up. She thought it may have been Delsym and/or Mucinex. OBJECTIVE: GENERAL: The patient appears comfortable. She was coughing periodically. VITAL SIGNS: Temperature is 36.7. HEENT: The patient's face is a bit puffy. NECK: Palpation of the neck reveals no lymph nodes. HEART: Rate is 72 per minute. Blood pressure 118/67. Rhythm was regular. LUNGS: Lung m[place] revealed just a few scattered rhonchi. These are much improved compared with the time of admission. Respiratory rate was 18. Saturation on room air 94%. EXTREMITIES: Showed no cyanosis, clubbing or edema. LABORATORY DATA: White count today is 11.97. This reflects an increase compared with November 06 when it was 6.44. Electrolytes show sodium 130, potassium 5.3, chloride 98, bicarbonate 22. BUN was 111 and creatinine 6.03. IMAGING DATA: She has had 2 x-rays since being here and they were clear except for cardiomegaly. It should be noted the patient had a CAT scan of the chest done October 14 that showed a rounded ground-glass density in the left mid lung field and an infiltrate in the right mid to upper lung field as well. These were likely not able to be seen so clearly on plain chest x-ray. IMPRESSIONS: 1. Chronic obstructive pulmonary disease exacerbation. 2. Pulmonary hypertension. COMMENTS AND RECOMMENDATIONS: The patient seems to be improved. Although she has not coughed out a lot of phlegm, she feels dramatically better and oxygenation has improved. She may well be able to go home soon. She already has oxygen at home. She should continue wearing it at night, even if her daytime saturations are good. Would send her home with prednisone at 40 mg daily with a very slow taper. She will need to follow up with pulmonary. I would not prescribe the dornase for her upon discharge. I think it is exceedingly expensive and likely would not be approved. She should go home with nebulizer treatments. She should have a followup CAT scan in about another month or two to be sure that the lung infiltrates have cleared.
[2017-11-09] MEDS ORDERED: BISACODYL 5 MG TABEC PO ONE (17:00)
[2017-11-09] MEDS ORDERED: BISACODYL 10 MG SUPP PR PRN (17:00)
[2017-11-09] MEDS ORDERED: SOD PHOSPHATE/SOD BIPHOSPHATE ENEMA 132 ML BTL PR PRN (17:00)
[2017-11-09] MEDS ORDERED: BISACODYL 5 MG TABEC PO PRN (17:00)
[2017-11-10 00:42] VITALS: BP 127/62; PULSE 80; TEMP 36.6; O2SAT 92
[2017-11-10 06:20] VITALS: PULSE 80; O2SAT 92
[2017-11-10] MEDS: ALBUT/IPRATROP 3MG/0.5MG NEB 3 ML VIAL INH SCH ×2 (06:20→11:03)
[2017-11-10 06:57] VITALS: BP 130/73; PULSE 71; TEMP 36.6; O2SAT 94
[2017-11-10] MEDS: FORMOTEROL FUMA NEBULIZER SOLN 20 MCG/2 ML VIAL INH SCH (07:12)
[2017-11-10] MEDS: DORNASE ALFA 2.5 ML AMP INH SCH (07:12)
[2017-11-10 07:22] VITALS: O2SAT 94
[2017-11-10 07:54] LABS: CALCIUM 7.9 mg/dl (8.5-10.1); CREATININE 4.97 mg/dl (0.60-1.20); POTASSIUM 5.2 mmol/L (3.5-5.1)
[2017-11-10] MEDS: TIOTROPIUM BROMIDE 5 PUFF/90 MCG INH INH SCH (07:54)
[2017-11-10] MEDS: CALCIUM ACETATE 667MG GELCAP PO SCH (07:54)
[2017-11-10] MEDS: FLUTICASONE PROPIONATE NA SPR 16 GM BTL SCH (07:54)
[2017-11-10] MEDS: LOSARTAN POTASSIUM 25 MG TAB PO SCH (07:54)
[2017-11-10] MEDS: CARVEDILOL 12.5 MG TAB PO SCH (07:54)
[2017-11-10] MEDS: GUAIFENESIN 600 MG TABCR PO SCH (07:55)
[2017-11-10] MEDS: INSULIN ASPART 100 UNITS/ML 3 ML PEN SC SCH ×2 (08:00→11:58)
[2017-11-10] MEDS: INSULIN GLARGINE SOLOSTAR 100 UNITS/ML 3 ML PEN SC SCH (08:01)
[2017-11-10] MEDS ORDERED: SODIUM POLYST. SULF SUSP 15G/60ML PO STA (08:10)
[2017-11-10 08:43] VITALS: BP 130/73; TEMP 36.6; O2SAT 94
[2017-11-10] MEDS ORDERED: CZR25 PO (08:58)
[2017-11-10] MEDS ORDERED: CRG125 PO (08:58)
[2017-11-10] MEDS ORDERED: PRD20 PO (08:58)
[2017-11-10] MEDS ORDERED: PRFINS INH (08:58)
--- NOTE | 2017-11-10 10:16 | Nephrology Progress Note ---
Nephrology Progress Note Date of Service Nov 10, 2017. Chief Complaint Follow-up for end-stage renal disease on hemodialysis. Maricarmen Menendez was seen and examined in her room this morning. She is overall feeling well. She was scheduled for cardiac catheterization yesterday but she refused and just wanted to follow with medical management as she feels like overall she is doing better. Had dialysis yesterday almost 3 L UF, tolerated well, currently blood pressure and electrolyte acceptable. Review of Systems A complete review of systems was performed. Pertinent positives are noted above. All other systems are negative. Vital Signs Last 8 Hrs Date Time Temp Pulse Resp B/P (MAP) Pulse Ox O2 Delivery O2 Flow Rate FiO2 11/10/17 07:22 94 Room Air 11/10/17 06:57 36.6 71 18 130/73 (92) 94 Room Air 11/10/17 06:20 80 20 92 Room Air 11/10/17 00:42 36.6 80 20 127/62 (83) 92 Room Air Last Recorded Weight Weight (Kilograms): 86.500 Physical Exam GENERAL: Middle-aged female, AAA x 3, pleasant, face puffy, not in any distress. NECK: Supple, no JVD. RESPIRATORY: Normal breathing efforts, no accessory muscle use, clear to auscultation bilaterally, no wheezes or rales. CARDIOVASCULAR: S1, S2 normal, rate rhythm regular. EXTREMITY: No lower extremity edema NEURO: speech fluent. PSYCHIATRY: Normal mood and judgment Family History FH: HTN (hypertension) Hypertension Social History Smoking Status: Never smoker Drug Use: none Marital Status: Housing Status: lives with family Occupation: retired . Retired. Never a smoker Laboratory Results Past 24 Hours 11/10/17 06:56 Test 11/09/17 11:22 11/09/17 16:19 11/09/17 20:49 11/10/17 06:56 Bedside Glucose 141 mg/dl (70-90) 232 mg/dl (70-90) 140 mg/dl (70-90) Anion Gap 10.0 mmol/L (3-11) Est Creatinine Clear Calc Drug Dose 10.9 ml/min Estimated GFR () 9.6 Estimated GFR (Non- 8.3 BUN/Creatinine Ratio 18.5 (10-20) Calcium Level 7.9 mg/dl (8.5-10.1) Magnesium Level 2.2 mg/dl (1.8-2.4) Test 11/10/17 07:28 Bedside Glucose 195 mg/dl (70-90) Allergies Coded Allergies: Hydralazine (Verified Allergy, Intermediate, rash, 10/30/17) Isosorbide Nitrate (Verified Allergy, Unknown, ITCHING, 10/30/17) EZE Inhibitors (Verified Adverse Reaction, Unknown, DUE TO CKD, 10/30/17) Medications Current Inpatient Medications Medications (Trade) Dose Ordered Sig/Tu Route Start Time Stop Time Status Last Admin Dose Admin Acetaminophen (Tylenol Tab) 650 mg Q4H PRN PO 11/03/17 10:15 12/03/17 10:14 Polyethylene (Miralax Powder Packet) 17 gm DAILY PRN PO 11/03/17 10:15 12/03/17 10:14 11/08/17 13:39 17 GM Ondansetron HCl (Zofran Inj) 4 mg Q6H PRN IV 11/03/17 10:15 12/03/17 10:14 11/09/17 07:39 4 MG Calcium Acetate (Phoslo Cap) 667 mg BIDM PO 11/03/17 17:00 12/03/17 16:59 11/10/17 07:54 667 MG Tiotropium [place] (Spiriva Handihaler Inhaler) 1 puff DAILY INH 11/04/17 09:00 12/04/17 08:59 11/10/17 07:54 1 PUFF Miscellaneous Information (Order Awaiting Action) 1 ea QS N/A 11/03/17 16:00 12/03/17 15:59 Albuterol/ Ipratropium (Duoneb) 3 ml QIDR INH 11/03/17 12:00 12/03/17 11:59 11/10/17 06:20 3 ML Formoterol Fumarate (Perforomist 20MCG/2ML Neb Soln) 20 mcg BIDR INH 11/03/17 20:00 12/03/17 19:59 11/10/17 07:12 20 MCG Albuterol/ Ipratropium (Duoneb) 3 ml Q2H PRN INH 11/03/17 11:00 12/03/17 10:59 11/03/17 23:06 3 ML Insulin Aspart (novoLOG ASPART) SLIDING SCALE PARAMETER ACHS SC 11/03/17 11:30 12/03/17 11:29 11/10/17 08:00 13 UNITS Guaifenesin (Mucinex Contr Rel Tab) 1,200 mg Q12 PO 11/03/17 21:00 12/03/17 20:59 11/07/17 20:45 1,200 MG Glucose (Glucose 40% Gel) 15-30 GRAMS 15 GRAMS... UD PRN PO 11/03/17 11:30 12/03/17 11:29 Glucose (Glucose Chew Tab) 4-8 Tablets 4 Tabl... UD PRN PO 11/03/17 11:30 12/03/17 11:29 Dextrose (Dextrose 50% 50ML Syringe) 25-50ML OF 50% DW IV FOR... UD PRN IV 11/03/17 11:30 12/03/17 11:29 Glucagon (Glucagon Inj) 1 mg UD PRN SQ 11/03/17 11:30 12/03/17 11:29 Dornase Conor (Pulmozyme Inhalation Soln 2.5ml Amp) 2.5 ml BIDR INH 11/03/17 20:00 12/03/17 19:59 11/10/17 07:12 2.5 ML Dextromethorphan Polymer Complex (Delsym Susp) 30 mg Q8H PRN PO 11/03/17 21:30 12/03/17 21:29 11/07/17 15:40 30 MG Menthol (Nice Russ) 1 russ PRN PRN RUSS 11/03/17 21:45 12/03/17 21:44 11/03/17 21:49 1 RUSS Insulin Glargine (Lantus Solostar Pen) 18 units BID SC 11/04/17 21:00 12/03/17 20:59 11/10/17 08:01 18 UNITS Calcium Carbonate (Tums Chew Tab) 500 mg Q6 PRN PO 11/05/17 11:15 12/05/17 11:14 11/08/17 07:41 500 MG Carvedilol (Coreg Tab) 6.25 mg BID PO 11/06/17 21:00 12/03/17 20:59 11/10/17 07:54 6.25 MG Fluticasone Propionate (Flonase Nasal [place]) 2 sprays BID NA 3/23/18 21:00 12/06/17 20:59 11/08/17 07:42 2 SPRAYS Losartan Potassium (coZAAR TAB) 25 mg QAM PO 11/08/17 09:00 12/08/17 08:59 11/10/17 07:54 25 MG Prednisone (PredniSONE TAB) 20 mg BID PO 11/09/17 21:00 12/09/17 20:59 11/10/17 07:54 20 MG Bisacodyl (Dulcolax Tab) 10 mg DAILY PRN PO 11/09/17 17:00 12/09/17 16:59 Bisacodyl (Dulcolax Supp) 10 mg DAILY PRN UT 11/09/17 17:00 12/09/17 16:59 Sodium Biphosphate/ Sodium Phosphate (Fleet Enema) 132 ml DAILY PRN UT 11/09/17 17:00 12/09/17 16:59 Impression (1) ESRD (end stage renal disease) on dialysis (2) Bilateral pneumonia (3) COPD (chronic obstructive pulmonary disease) (4) Lung mass Recommendations -- next dialysis tomorrow, can be done as an outpatient if plan to discharge today as otherwise she seems to be clinically stable -- Blood pressure is well controlled. Continue Carvedilol -- Stable. Appropriate. on VITALY as outpatient -- Bilateral pulmonary infiltrates and 2.5 cm ERICH lesion. Plan for follow-up CT imaging in a month Will follow
--- NOTE | 2017-11-10 10:25 | Discharge Instructions ---
Discharge Instructions Date of Service Nov 10, 2017. Admission Reason for Admission: Bilateral Pneumonia, Copd Exacerbation Discharge Discharge Diagnosis / Problem: copd, pulm HTN Discharge Goals Goal(s): Decrease discomfort, Improve function, Increase independence, Improve disease control, Improve nutritional status, Learn about illness, Diagnostic testing, Therapeutic intervention, Prevent Disease Progression, Specific goals Activity Recommendations Activity Limitations: resume your previous activity . Instructions / Follow-Up Instructions / Follow-Up you have COPD and pneumonia, need to have Prednisone at 40 mg, and tapering I am giving you Rx of Nebulizer machine for you neb treatment, you need to followup with Pulmonary for CAT scan for pneumonia and 2.5 cm left upper lung lesion. you have ESRD on HD MWF , please follow up electroplating sales representative as instructed you have Chronic diastolic CHF w/ new systolic dysfunction, need to follow up with audio production instructor as instructed - you need to follow up with your primary care physician in 1 week, - take medication as instructed, never overdose or any misuse, or take with alcohol, because misuse of medicine may cause organ damage or , call your primary care physician if have questions of medicaitons. - call your primary care physician OR go to local emergency room if has any fever/chill, chest pain, shortness of breathing, nausea/vomiting/abdominal pain , facial droop/slurry speech/local weakness, or if has any questions. - fall precaution - diet as instructed - you need to follow up with your subspecialists Current Hospital Diet Patient's current hospital diet: Diabetes Type 2 Diet, AHA Diet (Heart Healthy) Discharge Diet Recommended Diet: AHA Diet (Heart Healthy), Diabetes Type 2 Diet Pending Studies Studies pending at discharge: no Laboratory Results Hemoglobin A1c Test 09/30/17 06:52 Range/Units Estimated Average Glucose 194 mg/dl Hemoglobin A1c 8.4 H 4.5-5.6 % Medical Emergencies . Who to Call and When: Medical Emergencies: If at any time you feel your situation is an emergency, please call 911 immediately. . Non-Emergent Contact Non-Emergency issues call your: Primary Care Provider, Sharepoint Developer, Switching Operator, Director Of Program Management . . "Provider Documentation" section prepared by Ritesh Arellano. .
[2017-11-10] MEDS ORDERED: ALBU1.257 NEB (10:30)
[2017-11-10 11:03] VITALS: PULSE 80; O2SAT 95
--- NOTE | 2017-11-10 15:15 | Discharge Summary ---
Discharge Summary Date of Service Nov 10, 2017. Discharge Summary Admission Date: Nov 03, 2017 at 09:48 Discharge Date: Nov 10, 2017 Discharge Disposition: Home Principal Diagnosis: COPD and pneumonia, Problems/Secondary Diagnoses: 2.5 cm left upper lung lesion. ESRD on HD MWF Chronic diastolic CHF w/ new systolic dysfunction Immunizations: Have You Had Influenza Vaccine: Yes Influenza Vaccine Date: Jul 08, 2011 History of Tetanus Vaccine?: No History of Pneumococcal: No Pneumococcal Date: Mar 07, 2010 History of Hepatitis B Vaccine: No Procedures: No Consultations: Cardiology, nephrology, security researcher Medication Reconciliation New Medications: Albuterol Sulfate (Albuterol Sulfate) 1.25 Mg/3 Ml Neb 1 VIAL NEB Q6 for 15 Days, #150 ML Carvedilol (Carvedilol) 12.5 Mg Tab 6.25 MG PO BID for 30 Days, #30 TAB Formoterol Fumarate (Perforomist) 20 Mcg/2 Ml Nebu 20 MCG INH BIDR for 14 Days Losartan Potassium (Losartan Potassium) 25 Mg Tab 25 MG PO QAM for 30 Days, #30 TAB Prednisone (Prednisone) 20 Mg Tab 20 MG PO BID for 8 Days, #15 TAB 2 tabs po bid for 2 days, then 1 tab po bid for 2 days, then 1 tab po daily for 2 days, then half tab po bid for 2 days, then stop Continued Medications: Benzonatate (Tessalon Perles) 100 Mg Cap 100 MG PO TID PRN for Cough, CAP Calcium Acetate (Phosphate Bin (Phoslo 667 Mg) 667 Mg Cap 667 MG PO BID Home O2 Therapy (Oxygen) Gas 2 LITERS NA PRN, BTL Insulin Aspart (Novolog Flexpen) 100 Units/Ml Inj 1 DOSE SC TID 10 units plus COVERAGE DIRECTED BY SLIDING SCALE Insulin Glargine (Lantus Solostar) 100 Unit/Ml Inj 13 UNITS SC AMPM, PEN Mometasone Furoate-Formoterol (Dulera 200/5 Mcg) 1 Aer Aer 2 PUFFS INH BID Tiotropium [place] (Spiriva Handihaler) 30 Puff/540 Mcg Aerp 1 CAP INH DAILY, INHALER Vitamin B Cmplx/Vitc/Folic Ac (Nephrocaps) Cap 1 CAP PO QAM, CAP Discontinued Medications: Carvedilol (Coreg) 25 Mg Tab 25 MG PO BID, TAB Discharge Exam Sitting in chair, pleasant, conversational, no complaint Review of Systems: Constitutional: No fever, No chills, No sweats, No weight loss, No weakness , No fatigue, No problem reported Eyes: No worsening of vision, No eye pain, No redness, No discharge, No diplopia, No problem reported ENT: No hearing loss, No unusual epistaxis, No nasal symptoms, No sore throat, No tinnitus, No dental problems, No trouble swallowing, No problem reported Respiratory: + cough Cardiovascular: No chest pain, No orthopnea, No PND, No edema, No claudication, No palpitations, No problem reported Abdomen: No pain, No nausea, No vomiting, No diarrhea, No constipation, No GI bleeding, No problem reported Musculoskeletal: No joint pain, No muscle pain, No swelling, No calf pain, No problem reported Genitourinary - Female: No dysuria, No urinary frequency, No urinary urgency , No urinary incontinence, No urinary retention, No hematuria, No dysmenorrhea, No menorrhagia, No metrorrhagia, No rash, No vaginal bleeding, No vaginal discharge, No vaginal itching, No vulvodynia, No , No problem reported Neurologic: No memory loss, No paralysis, No weakness, No numbness/tingling , No vertigo, No balance problems, No problem reported Psychiatric: No depression symptoms, No anhedonism, No anxiety, No insomnia , No substance abuse, No problem reported Endocrine: No fatigue, No excessive thirst, No excessive urination, No problem reported Hematologic / Lymphatic: No abnormal bleeding/bruising, No clotting problems , No swollen lymph nodes, No night sweats, No problem reported Integumentary: No rash, No itch, No new/changing skin lesions, No color change, No bleeding, No problem reported Physical Exam: General Appearance: WD/WN, no apparent distress Eyes: normal inspection ENT: normal ENT inspection, hearing grossly normal Neck: supple Respiratory/Chest: chest non-tender, lungs clear, + decreased breath sounds Cardiovascular: regular rate, rhythm, no edema, no gallop Abdomen / GI: normal bowel sounds, non tender Extremities: normal inspection, no calf tenderness, normal capillary refill , no pedal edema Neurologic/Psychiatric: perinatal director II-XII nml as tested, no motor/sensory deficits , alert, normal mood/affect, normal reflexes, oriented x 3 Skin: normal color, warm/dry Hospital Course 67-year-old female with chronic respiratory failure with hypoxia was failed outpatient treatment was admitted on November 03, 2017 because of possible pneumonia Dyspnea, chronic respiratory failure w/ hypoxemia upon admit, h/o COPD, h/o asthma, ?[facility] vs [facility]: ESRD on HD MWF: Uncontrolled T2DM- hgbA1c 8.4% w/ hyperglycemia, later is partially secondary to IV Solu Medrol- STABLE Chronic diastolic CHF w/ new systolic dysfunction, Was planning left heart cath , but was canceled because patient do not want to do it and cardiology agreed R / toe ulceration: Wound care consulted, appreciate recommendations Changed IV Solu Medrol oral prednisone, slowly tapering Has been on continue DuoNebs QID and PRN for SOB/wheezing, continue Delsym PRN for cough, Mucinex BID , continue home inhalers- Dulera and Spiriva We will continue Spiriva, has give medicine of albuterol for nebulizer treatment to home - Influenza negative; MRSA swab negative - ECHO w/ EF 20-25%, grade II diastolic dysfunction, LVH, the reduced EF is a new finding - Pulmonary consulted, feel RHC indicated - Cardiology consulted, was planning to have r/L HC possibly today, need patient to be able to lay flat plan for left and right heart catheterization today after HD, however it was canceled on November 09, 2017 because patient don't wanted to do it , and cardiology feel is okay to follow-up with outpatient Continue dialysis, nephrology follow-up, continue PhosLo and Nephrocaps Continue to adjust Lantus while receiving steroids GI prophylaxis: Protonix daily + Tums PRN DVT prophylaxis: Heparin BID Code status: LEVEL I, FULL Dispo: From home. lives w/ son- Has been doing PT/OT and CM consulted, increase activity Instructions / Follow-Up you have COPD and pneumonia, need to have Prednisone at 40 mg, and tapering I am giving you Rx of Nebulizer machine for you neb treatment, you need to followup with Pulmonary for CAT scan for pneumonia and 2.5 cm left upper lung lesion. you have ESRD on HD MWF , please follow up automotive dismantler as instructed you have Chronic diastolic CHF w/ new systolic dysfunction, need to follow up with gun examiner as instructed - you need to follow up with your primary care physician in 1 week, - take medication as instructed, never overdose or any misuse, or take with alcohol, because misuse of medicine may cause organ damage or , call your primary care physician if have questions of medicaitons. - call your primary care physician OR go to local emergency room if has any fever/chill, chest pain, shortness of breathing, nausea/vomiting/abdominal pain , facial droop/slurry speech/local weakness, or if has any questions. - fall precaution - diet as instructed - you need to follow up with your subspecialists Total Time Spent: Greater than 30 minutes This includes examination of the patient, discharge planning, medication reconciliation, and communication with other providers. Discharge Instructions Please refer to the electronic Patient Visit Report (Discharge Instructions) for additional information. Additional Copies To Med Escobar DO; Delio Villareal M.D.; Karla Todd M.D.
--- NOTE | 2017-11-11 09:24 | EDITING REQUIRED CODING QUERY ---
CODING QUERY To promote full compliance with coding requirements relating to patient care, provider participation is requested in all cases of engineering lab technician uncertainty. Please assist us with the question(s) below: Coding Question(s): There is documentation of Chronic Diastolic CHF w/ new Systolic Dysfunction and documentation of Systolic Heart Failure. Please clarify below, in your clinical opinion, regarding the Systolic CHF. (x ) Acute on Chronic Systolic CHF ( ) Acute Systolic CHF ( ) Chronic Systolic CHF Physician's Response(s): Thank you Ana Paula Mclaughlin Principal Diagnosis: "_that condition established after study, to be chiefly responsible for occasioning the admission of the patient to the hospital for care." Co-Existing Principal Diagnosis: "_when two or more diagnoses equally meet the criteria for principal diagnosis as determined by the circumstances of admission, diagnostic work up, and/or therapy provided, and the Alphabetic Index, Tabular List, or another coding guideline does not provide sequencing direction, any one of the diagnoses may be sequenced first." "When the physician has documented what appears to be a current diagnosis in the body of the record, but has not included the diagnosis in the final diagnostic statement, the physician should be asked whether the diagnosis should be added." ([facility] 2 QTR90. p3-4)
--- NOTE | 2017-11-11 09:29 | EDITING REQUIRED CODING QUERY ---
CODING QUERY To promote full compliance with coding requirements relating to patient care, provider participation is requested in all cases of retail customer service specialist uncertainty. Please assist us with the question(s) below: Coding Question(s): There is documentation of Chronic Respiratory Failure throughout the record, however, the Cardiology Progress Note on 11/08 documents Acute on Chronic Respiratory Failure. Please specify below, in your clinical opinion, regarding the Respiratory Failure. ( ) Chronic Respiratory Failure ( x ) possible Acute on Chronic Respiratory Failure upon admission Acute on Chronic Systolic CHF Physician's Response(s): Thank you Ana Paula Mclaughlin Principal Diagnosis: "_that condition established after study, to be chiefly responsible for occasioning the admission of the patient to the hospital for care." Co-Existing Principal Diagnosis: "_when two or more diagnoses equally meet the criteria for principal diagnosis as determined by the circumstances of admission, diagnostic work up, and/or therapy provided, and the Alphabetic Index, Tabular List, or another coding guideline does not provide sequencing direction, any one of the diagnoses may be sequenced first." "When the physician has documented what appears to be a current diagnosis in the body of the record, but has not included the diagnosis in the final diagnostic statement, the physician should be asked whether the diagnosis should be added." ([facility] 2 QTR90. p3-4)
[2017-11-11] MEDS ORDERED: AMOX500C3 PO (12:29)
[2017-11-11] MEDS ORDERED: GABA-112 PO (12:29)
[2017-11-11] MEDS ORDERED: PRED10TA PO (12:29)
[2017-11-11] MEDS ORDERED: CARV25TA PO (12:29)
[2017-11-11] MEDS ORDERED: DOXY100C76 PO (12:29)
== END 2017-11-10 12:00 | disposition home or self-care (01) | DRG 291 ==
LOC: C.MS2W 09:48
PROVIDERS: ADMIT Internal Medicine; ATTEND Hospitalist
DX: I13.2 Hypertensive heart and chronic kidney disease with heart failure and with stage 5 chronic kidney disease, or end stage renal disease (principal); J18.9 Pneumonia, unspecified organism; I50.23 Acute on chronic systolic (congestive) heart failure; J96.21 Acute and chronic respiratory failure with hypoxia; N18.6 End stage renal disease; J44.0 Chronic obstructive pulmonary disease with (acute) lower respiratory infection; J44.1 Chronic obstructive pulmonary disease with (acute) exacerbation; I50.32 Chronic diastolic (congestive) heart failure; N25.81 Secondary hyperparathyroidism of renal origin; I42.9 Cardiomyopathy, unspecified; R91.1 Solitary pulmonary nodule; E11.621 Type 2 diabetes mellitus with foot ulcer; L97.519 Non-pressure chronic ulcer of other part of right foot with unspecified severity; E11.65 Type 2 diabetes mellitus with hyperglycemia; T49.0X5A Adverse effect of local antifungal, anti-infective and anti-inflammatory drugs, initial encounter; J45.909 Unspecified asthma, uncomplicated; E11.22 Type 2 diabetes mellitus with diabetic chronic kidney disease; E11.42 Type 2 diabetes mellitus with diabetic polyneuropathy; I25.10 Atherosclerotic heart disease of native coronary artery without angina pectoris; I25.2 Old myocardial infarction; I27.20 Pulmonary hypertension, unspecified; D64.9 Anemia, unspecified; E66.9 Obesity, unspecified; Z51.81 Encounter for therapeutic drug level monitoring; Z79.899 Other long term (current) drug therapy; Z79.4 Long term (current) use of insulin; Z99.81 Dependence on supplemental oxygen; Z99.2 Dependence on renal dialysis; Z87.09 Personal history of other diseases of the respiratory system; Z89.421 Acquired absence of other right toe(s); Z68.34 Body mass index [BMI] 34.0-34.9, adult; Z77.22 Contact with and (suspected) exposure to environmental tobacco smoke (acute) (chronic); Z88.8 Allergy status to other drugs, medicaments and biological substances; Z82.49 Family history of ischemic heart disease and other diseases of the circulatory system

== ENCOUNTER 2017-11-11 11:47 | Inpatient (IN) | payer OTHER ==
[~2017-11-11] VITALS: Ht 157.5 cm; Wt 89.8 kg
[2017-11-11] VITALS (17 sets, daily range): BP systolic 80–123; BP diastolic 43–62; PULSE 80–90; TEMP 36.4; O2SAT 89–100; Ht 157.5 cm; Wt 89.8 kg
[~2017-11-11 11:47] MED LIST changes: +ALBU1.257 NEB; -CARV25TA2 PO; +CRG125 PO; +CZR25 PO; -HYDR5SYP11 PO; +PRD20 PO; +PRFINS INH
[2017-11-11] MEDS ORDERED: SODIUM CHLORIDE 0.9% 1000ML 250 ML IV STA (12:22)
[2017-11-11] MEDS ORDERED: MoRPHine SULFATE 2 MG/ML CARP IV STA (12:22)
[2017-11-11] MEDS ORDERED: ONDANSETRON INJ 2 MG/ML 2 ML VIAL IV STA (12:22)
[2017-11-11] MEDS ORDERED: DOXY100C76 PO (12:29)
[2017-11-11] MEDS ORDERED: GABA-112 PO (12:29)
[2017-11-11] MEDS ORDERED: PRED10TA PO (12:29)
[2017-11-11] MEDS ORDERED: CARV25TA PO (12:29)
[2017-11-11] MEDS ORDERED: AMOX500C3 PO (12:29)
[2017-11-11] MEDS ORDERED: MoRPHine SULFATE 2 MG/ML CARP IV PRN (12:30)
--- NOTE | 2017-11-11 12:34 | EMERGENCY ROOM VISIT NOTE ---
History Report prepared by Dennis: Taapn Felix Under the Supervision of: Dr. Henok Ludwig M.D. First contact with patient: 12:17 Chief Complaint: ABDOMINAL PAIN Stated Complaint: ABDOMINAL PAIN Nursing Triage Summary: patient to ED via ALS from dialysis, recently discharged from [facility] for pneumonia, COPD exacerbation, reports no bowel movement for "a few days", c/o 10/10 abdominal pain History of Present Illness The patient is a 67 year old female who presents to the Emergency Room with complaints of constant lower abdominal pain that she has been experiencing for the past couple of days. She is bloated as well. She rates the pain as a 10/10 in severity, and nothing seems to improve/worsen this intensity. She is nauseous as well. The patient also complains of difficulty having a bowel movement, she has not had a BM since her inpatient stay a couple of days ago. She does feel the need to go, but is unable. The patient was brought to the ED today immediately after finishing her dialysis treatment, where she was complaining about her abdomen. The patient was just discharged from the hospital yesterday after an inpatient stay for COPD and pneumonia. She also is complaining that she currently "cannot breathe," and mentioned that she recently started wearing 2L of oxygen. She has not had any fevers. Source of History: patient Onset: past couple of days Position: abdomen (lower) Symptom Intensity: 10/10 Timing: constant Modifying Factors (Worsening): other (N/a) Modifying Factors (Relieving): other (N/a) Associated Symptoms: + SOB, + nausea, No fevers Note: Unable to produce bowel movement. Review of Systems See HPI for pertinent positives & negatives. A total of 10 systems reviewed and were otherwise negative. Past Medical & Surgical Medical Problems: (1) Acute kidney injury (2) Acute respiratory distress (3) Ankle fracture, right (4) Bilateral pneumonia (5) Cardiac arrest (6) Chronic kidney disease (CKD) stage G4/A1, severely decreased glomerular filtration rate (GFR) between 15-29 mL/min/1.73 square meter and albuminuria creatinine ratio less than 30 mg/g (7) Chronic kidney disease, stage 4 (severe) (8) Chronic kidney disease, stage III (moderate) (9) Chronic osteomyelitis (10) Closed fracture of medial malleolus of right ankle with nonunion (11) Congestive heart failure (CHF) (12) Congestive heart failure (CHF) (13) Congestive heart failure with left ventricular systolic dysfunction (14) COPD (chronic obstructive pulmonary disease) (15) COPD exacerbation (16) COPD exacerbation (17) DIAB MANJIT WO COMPL, TYPE II OR UNSPEC TYPE, NOT UNCNTRLD (18) Diabetes (19) Diabetic foot infection (20) Diabetic ulcer of right foot (21) Elevated troponin (22) ESRD (end stage renal disease) on dialysis (23) Hypercholesterolemia (24) Hyperkalemia, diminished renal excretion (25) Hypertension (26) HYPERTENSION NOS (27) Hypoxemia (28) Influenza A (29) Kidney disease (30) Lung mass (31) Metabolic acidosis with normal anion gap and failure of bicarbonate regeneration (32) Obesity (33) Obstructive sleep apnea (34) Osteomyelitis (35) Osteomyelitis of left foot (36) Peripheral neuropathy (37) PNEUMONIA, ORGANISM NOS (38) Proteinuria (39) Pulmonary edema (40) Secondary hyperparathyroidism of renal origin (41) SOB (shortness of breath) (42) Vitamin D deficiency, unspecified (43) Volume overload Family History FH: HTN (hypertension) Social History Smoking Status: Never Smoker Drug Use: none Marital Status: Housing Status: lives with family Occupation Status: retired Current/Historical Medications Scheduled Albuterol Sulfate (Albuterol Sulfate), 1 VIAL NEB Q6 Amoxicillin (Amoxil), 500 MG PO DAILY Calcium Acetate (Phosphate Bin (Phoslo 667 Mg), 667 MG PO BID Carvedilol (Coreg), 25 MG PO BID Doxycycline Monohydrate (Monodox), 100 MG PO BID Gabapentin (Neurontin), 200 MG PO TID Home O2 Therapy (Oxygen), 2 LITERS NA PRN Insulin Aspart (Novolog Flexpen), 1 DOSE SC TID Insulin Glargine (Lantus Solostar), 15 UNITS SC AMPM Mometasone Furoate-Formoterol (Dulera 200/5 Mcg), 2 PUFFS INH BID Prednisone (Prednisone), 10 MG PO DAILY Tiotropium Tilden (Spiriva Handihaler), 1 CAP INH DAILY Vitamin B Cmplx/Vitc/Folic Ac (Nephrocaps), 1 CAP PO QAM Scheduled PRN Benzonatate (Tessalon Perles), 100 MG PO TID PRN for Cough Allergies Coded Allergies: Hydralazine (Verified Allergy, Intermediate, rash, 3/28/18) Isosorbide Nitrate (Verified Allergy, Unknown, ITCHING, 11/11/17) EZE Inhibitors (Verified Adverse Reaction, Unknown, DUE TO CKD, 11/11/17) Physical Exam Vital Signs Date Time Temp Pulse Resp B/P (MAP) Pulse Ox O2 Delivery O2 Flow Rate FiO2 11/11/17 17:16 89 97/64 99 11/11/17 17:10 88 98/62 96 11/11/17 17:04 88 18 132/66 99 11/11/17 17:01 88 140/69 98 11/11/17 16:55 86 148/71 98 11/11/17 16:50 86 118/65 98 11/11/17 16:48 85 78/51 96 11/11/17 16:45 83 84/50 94 11/11/17 16:43 83 86/53 96 11/11/17 16:34 117 11/11/17 16:32 84 218/92 94 11/11/17 16:28 112 11/11/17 16:21 50 11/11/17 16:08 78 11/11/17 13:50 75 24 110/76 96 Nasal Cannula 2.0 11/11/17 12:12 96 11/11/17 12:03 99 Room Air 11/11/17 12:03 99 Room Air 11/11/17 12:00 111 29 101/60 99 Room Air Physical Exam GENERAL: Patient is in mild distress from pain. HEENT: No acute trauma, normocephalic atraumatic, mucous membranes moist, no nasal congestion, no scleral icterus. NECK: No stridor, no adenopathy, no meningismus, trachea is midline. LUNGS: There is scattered wheezing, breath sounds are equal bilaterally. Increased respiratory rate appreciated. No crackles. HEART: Distant heart sounds noted. Tachycardia, no murmurs. Normal rhythm ABDOMEN: Distention present. Abdomen is diffusely tender, no peritonitis. There is tympany with percussion, no obvious hernia. EXTREMITIES: No cyanosis or edema, full range of motion of all the joints without pain or difficulty, no signs for acute trauma. NEUROLOGIC: Oriented x 3, no acute motor or sensory deficits, no focal weakness. SKIN: No rash, no jaundice, no diaphoresis. Skin is pale. RECTAL: Rectal exam reveals a large amount of hard stool present. Medical Decision & Procedures ER Provider Diagnostic Interpretation: Radiology results as stated below per my review and radiologist interpretation: CHEST ONE VIEW PORTABLE CLINICAL HISTORY: 67 years-old Female presenting with sob, abd pain. TECHNIQUE: Portable upright AP view of the chest was obtained. COMPARISON: 10/10/2017. FINDINGS: Atherosclerosis of aortic arch. Cardiac silhouette enlarged though slightly decreased in prominence in comparison to prior. Bandlike opacity at the left lung base. Mildly low lung volumes with hypoventilatory changes. No large effusion or pneumothorax. Osseous structures normal. Upper abdomen normal. IMPRESSION: 1. Cardiomegaly. No volume overload or pulmonary edema. 2. Left basilar atelectasis or scarring. Electronically signed by: Jim Redmond M.D. 11/11/2017 12:53 PM Dictated Date/Time: 11/11/2017 12:52 PM Laboratory Results Test 11/11/17 00:00 11/11/17 13:44 11/11/17 16:57 Influenza Type A (RT-PCR) Neg for Influ A (NEG) Influenza Type B (RT-PCR) Neg for Influ B (NEG) Lipase 115 U/L (73-393) Immature Granulocyte % (Auto) 2.1 % White Blood Count 21.26 K/uL (4.8-10.8) Red Blood Count 3.84 M/uL (4.2-5.4) Hemoglobin 12.4 g/dL (12.0-16.0) Hematocrit 37.7 % (37-47) Mean Corpuscular Volume 98.2 fL (80-100) Mean Corpuscular Hemoglobin 32.3 pg (25-34) Mean Corpuscular Hemoglobin Concent 32.9 g/dl (32-36) Platelet Count 127 K/uL (130-400) Mean Platelet Volume 9.5 fL (7.4-10.4) Neutrophils (%) (Auto) 85.2 % Lymphocytes (%) (Auto) 8.7 % Monocytes (%) (Auto) 3.7 % Eosinophils (%) (Auto) 0.0 % Basophils (%) (Auto) 0.3 % Neutrophils # (Auto) 18.12 K/uL (1.4-6.5) Lymphocytes # (Auto) 1.84 K/uL (1.2-3.4) Monocytes # (Auto) 0.78 K/uL (0.11-0.59) Eosinophils # (Auto) 0.01 K/uL (0-0.5) Basophils # (Auto) 0.06 K/uL (0-0.2) Immature Granulocyte # (Auto) 0.45 K/uL (0.00-0.02) Anisocytosis PRESENT Arterial Blood pH 7.31 (7.35-7.45) Arterial Blood Partial Pressure CO2 48 mmHg (35-46) Arterial Blood Partial Pressure O2 377 mm/Hg (80-95) Arterial Blood HCO3 23 mmol/L (19-24) Arterial Blood Oxygen Saturation 99.8 % (90-95) Arterial Blood Base Excess -3.2 mEq/L (-9-1.8) Arterial Blood Gas Delivery 100% Jose Test POS (POS) Laboratory results reviewed by me. Medications Administered Medications (Trade) Dose Ordered Sig/Tu Route Start Time Stop Time Status Last Admin Dose Admin Ondansetron HCl (Zofran Inj) 4 mg NOW STAT IV 11/11/17 12:22 11/11/17 12:28 DC 11/11/17 13:24 4 MG Morphine Sulfate (MoRPHine SULFATE INJ) 2 mg NOW STAT IV 11/11/17 12:22 11/11/17 12:28 DC 11/11/17 13:25 2 MG Norepinephrine Bitartrate 4 mg/ Dextrose 254 ml @ 0 mls/hr Q0M PRN IV 11/11/17 17:00 11/11/17 22:29 DC 11/11/17 20:10 169 MLS/HR Procedure Intubation: Patient received 20 mg of etomidate IV, 50 mg of rocuronium IV. The patient was hyper oxygenated. Using rapid technique, the patient was intubated with a Lubin two blade. Some suction was required. No complication. The endotracheal tube was placed at 23 centimeters at the the lips. Good O2 saturation noted afterwards. Good CO2 color change. Breath sounds equal bilaterally. Post intubation chest x-ray demonstrated the tube to be in good position. Of note, the patient required 2 rounds of the above IV medications as the IV infiltrated and stopped functioning just as the medications were pushed. After an IO was placed in the right proximal tibia, the medications were re-given with good effect. ECG Per My Interpretation Indication: other (STATUS POST CODE) Rate (beats per minute): 102 Rhythm: sinus tachycardia Findings: RBBB, other (LVH is present, No SREEKANTH) Change: ABOVE ECG STATUS POST CODE ED Course 1221: The patient was evaluated in room C6. A complete history and physical exam was performed. 1222: Ordered Morphine Sulfate 2 mg IV, Zofran 4 mg IV, Sodium Chloride 250 mL @ 999 mL/hr IV. 1230: Ordered Morphine Sulfate 2 mg IV. 1501: I performed a rectal exam on the patient at this time. See the physical exam for further findings. 1536: The patient's nurse called me at this time. The patient does not look well. 1541: I evaluated the patient, she will be moved to room B1. 1552: The patient personally consented for intubation at this time. 1555: Etomidate was pushed 20 mg. 1556: Rocuronium was pushed 50 mg. 1601: The patient is still awake and fighting at mask. The IV was blown, the above two medications were not successfully delivered. 1609: The IV-team is here. They set an IO site in the right leg/proximal tibia. 1612: 20 mg Etomidate pushed through IO. 1614: Rocuronium 50 mg pushed through IO. 1615: Intubation tube has been set. Breath sounds are good. 1621: Lost pulse in the patient at this time. Code Blue called. 1623: Pushed Epinephrine. 1625: Bicarbonate was pushed. Active CPR 1626: Epinephrine pushed, pulse has returned. 1647: I discussed the case with the patient's son and [id number]. They are aware of the situation at this time. Dr. Harmon from the intensive care unit has arrived, he is assessing the patient. He will place central lines as indicated. The patient will be transferred to the intensive care unit. Discussed the patient's grave condition with the family. They had arrived and were present in the patient's room. Medical Decision Differential diagnosis includes; bowel obstruction, volvulus, constipation, diverticulitis, bowel rupture, hernia, UTI, bowel ischemia. The patient's renal panel returned showing a high creatinine, consistent with her need for dialysis. There was no evidence for hyperkalemia. LFTs were elevated and higher than her last set of LFT values. There was no evidence for pancreatitis. Chest x-ray did not show significant CHF, pneumonia or free air. There was cardiomegaly. Abdominal and pelvis CT showed significant constipation with inflammation of the colon consistent with severe constipation. No evidence for bowel obstruction or for bowel perforation. Urinalysis showed what appears to be contamination, no signs of infection. The lactic acid level ordered could not be obtained successfully. The CBC results were initially unavailable. On exam, the patient did have a large mass of hard stool in the rectal vault. She had abdominal distention with some diffuse tenderness, no peritonitis. I discussed administering an enema with the patient, she did consent. Before the enema was administered, the nursing staff called and felt the patient looked unwell. I did immediately reassess the patient and she was slightly diaphoretic and pale. Her blood pressure was quite low at around 60 systolic. This was a marked change in her condition. She seemed to be having a much harder time breathing. I discussed CODE STATUS with her. She did want to be a full code and desired intubation and CPR if needed. I did feel intubation would be beneficial as she seemed to be having a more more difficult time breathing. Patient was moved to a trauma bay. We were preparing for intubation, respiratory was present. She was being hyper oxygenated. The medications for intubation were given but there was no change in her condition. She did not become sedated or paralyzed. The IV was found to be nonfunctional. An IO line was inserted in her right proximal tibia by the IV team. I did provide lidocaine anesthesia before the IV insertion. This IV functioned well and the patient was then intubated using this site for medication administration. Patient received IV saline for the lower blood pressure. As I was attempting to find central line access, the patient lost her pulse. On the monitor, she had a sinus rhythm, there was no pulse noted. She was in PEA. CPR was initiated, the patient received 2 rounds of IV epinephrine and 1 round of IV bicarbonate. Within a few minutes, she regained a palpable pulse and CPR was discontinued. The ICU attending arrived at the bedside and began to assess the patient. We discussed the case. He is assuming care and will be obtaining central line access. I had a discussion with the family via phone and then at bedside. They are aware of the seriousness of the patient's condition. At this point, I cannot explain her sudden decline. Certainly, bowel ischemia, KS, even sepsis are considerations. Sepsis seems less likely though as she has not been febrile and just left the hospital yesterday after antibiotic therapy. I did speak with case management, the on-call hospitalist was consulted and we did discuss the case. Medication Reconcilliation Current Medication List: was personally reviewed by me Blood Pressure Screening Patient's blood pressure: Low blood pressure Impression Primary Impression: Cardiac arrest Additional Impressions: Diffuse abdominal pain Constipation Respiratory failure Critical Care I have personally spent greater than 30 minutes of critical care time in the direct management of this patient. This includes bedside care, interpretation of diagnostic studies and testing, discussion with consultants, the patient, and family members, and other required patient management activities. This 30 minutes is in excess of all separately billable procedures. Scribe Attestation The scribe's documentation has been prepared under my direction and personally reviewed by me in its entirety. I confirm that the note above accurately reflects all work, treatment, procedures, and medical decision making performed by me. Departure Information Dispostion Being Evaluated By Hospitalist Referrals Karla Todd M.D. (PCP) Patient Instructions My [facility] Problem Qualifiers
--- NOTE | 2017-11-11 12:54 | DIAGNOSTIC IMAGING REPORT ---
CHEST ONE VIEW PORTABLE CLINICAL HISTORY: 67 years-old Female presenting with sob, abd pain. TECHNIQUE: Portable upright AP view of the chest was obtained. COMPARISON: 10/10/2017. FINDINGS: Atherosclerosis of aortic arch. Cardiac silhouette enlarged though slightly decreased in prominence in comparison to prior. Bandlike opacity at the left lung base. Mildly low lung volumes with hypoventilatory changes. No large effusion or pneumothorax. Osseous structures normal. Upper abdomen normal. IMPRESSION: 1. Cardiomegaly. No volume overload or pulmonary edema. 2. Left basilar atelectasis or scarring. Electronically signed by: Jim Redmond M.D. 11/11/2017 12:53 PM Dictated Date/Time: 11/11/2017 12:52 PM
[2017-11-11 14:10] LABS: INR 1.1 (0.9-1.1); PTT PATIENT 23.1 SECONDS (21.0-31.0)
--- NOTE | 2017-11-11 14:31 | DIAGNOSTIC IMAGING REPORT ---
CT SCAN OF THE ABDOMEN AND PELVIS WITHOUT IV CONTRAST CLINICAL HISTORY: Generalized abdominal pain. COMPARISON STUDY: KUB dated 09/26/2017. TECHNIQUE: CT scan of the abdomen and pelvis is performed from the lung bases to the proximal femora. Images are reviewed in the axial, sagittal, and coronal planes. IV contrast was not administered for this examination as per the referring clinician. Note that the examination was performed in significantly suboptimal fashion without oral and IV contrast. A dose lowering technique was utilized adhering to the principles of ALARA. CT DOSE: 1188.00 mGycm FINDINGS: Lung bases: The heart is enlarged and there is trace pericardial effusion. There are coronary artery calcifications. A tiny hiatal hernia is identified. The lung bases are clear noting bibasilar scarring/atelectasis. Liver: The unenhanced liver is mildly enlarged, measuring 18.4 cm in length. The liver is otherwise normal in contour and attenuation. There is no intrahepatic biliary ductal dilatation. Gallbladder: Surgically absent noting clips in the gallbladder fossa. Spleen: Normal in size and attenuation. Pancreas: The unenhanced pancreas is atrophic and grossly unremarkable. Adrenal glands: Unremarkable. Kidneys: The unenhanced kidneys are atrophic and without hydronephrosis. There are no renal calculi identified. There are renovascular calcifications. There is no evidence of contour deforming renal mass lesion. Abdominal vasculature: The abdominal aorta is normal in course and caliber noting mild to moderate atherosclerotic calcification. Bowel: There is rectosigmoid fecal impaction as well as moderate to severe constipation. The colon is distended and filled with stool. The right colon measures up to 6.5 cm in diameter. There is mild colonic diverticulosis without CT evidence of acute diverticulitis. Mild pericolonic infiltration is observed. The small bowel loops are normal in caliber. The appendix is not visualized. Peritoneum: There is trace perihepatic and perisplenic ascites. Trace free fluid is seen in the pelvis. No intraperitoneal free air is identified. There is a fat-containing supraumbilical hernia seen on image #291. Lymphadenopathy: None. Pelvic viscera: The bladder is mildly distended and otherwise normal in appearance. A fibroid uterus is observed. No adnexal lesion is seen. There is a large fat-containing right inguinal hernia. Skeletal structures: The skeletal structures are osteopenic. There is mild lumbosacral spondylosis. Sclerotic change is noted in the left sacroiliac joint. No lytic or blastic lesions are seen. IMPRESSION: 1. Suboptimal examination without oral and IV contrast 2. There is rectosigmoid fecal impaction as well as moderate to severe constipation. The colon is distended and filled with stool. 3. There is pericolonic inflammatory stranding and trace fluid. The appearance is consistent with a nonspecific pancolitis. This could be on an infectious/inflammatory basis or could possibly represent stercoral colitis. Clinical correlation will be required. 4. The small bowel loops are normal in caliber. No bowel obstruction is identified. 5. Trace abdominopelvic ascites is likely on a reactive basis. No intraperitoneal free air is seen. 6. Cardiomegaly. 7. Fibroid uterus. 8. Additional findings as above. Electronically signed by: Henok Barr M.D. 11/11/2017 2:30 PM Dictated Date/Time: 11/11/2017 2:20 PM
[2017-11-11 15:14] LABS: CREATININE 3.07 mg/dl (0.60-1.20)
[2017-11-11 15:15] LABS: POTASSIUM 4.8 mmol/L (3.5-5.1)
[2017-11-11 15:16] LABS: ALBUMIN 2.4 gm/dl (3.4-5.0); CALCIUM 7.7 mg/dl (8.5-10.1); TOTAL PROTEIN 5.7 gm/dl (6.4-8.2)
[2017-11-11] MEDS ORDERED: RAPID SEQUENCE INDUCTION BAG ONE (15:45)
[2017-11-11] MEDS ORDERED: ETOMIDATE 2 MG/ML 20 ML VIAL IV ONE (16:04)
[2017-11-11] MEDS ORDERED: ROCURONIUM BROMIDE 10 MG/ML 10 ML VIAL IV ONE (16:04)
[2017-11-11] MEDS ORDERED: LIDOCAINE HCL 1% 20 ML VIAL ONE (16:08)
[2017-11-11] MEDS ORDERED: SODIUM CHLORIDE 0.9% 500ML 500 ML IV STA (16:37)
[2017-11-11] MEDS ORDERED: NOREPINEPHRINE BIT INJ 8 MG in DEXTROSE 5% 500ML 500 ML IV PRN (16:45)
--- NOTE | 2017-11-11 16:49 | DIAGNOSTIC IMAGING REPORT ---
CHEST ONE VIEW PORTABLE CLINICAL HISTORY: post intubation tube position COMPARISON STUDY: 11/11/2017 12:41 PM FINDINGS: Endotracheal tube 4.5 cm above the hollis. Mild stable cardia megaly. Chronic pleural and parenchymal change left base. Prominent pulmonary vasculature can ingestion. IMPRESSION: Endotracheal tube 4.5 cm above the hollis. Developing pulmonary vascular congestion The above report was generated using voice recognition software. It may contain grammatical, syntax or spelling errors. Electronically signed by: Cristiano Hernández M.D. 11/11/2017 4:47 PM Dictated Date/Time: 11/11/2017 4:45 PM
[2017-11-11] MEDS ORDERED: NOREPINEPHRINE BIT INJ 4 MG in DEXTROSE 5% 250ML 250 ML IV PRN (17:00)
--- NOTE | 2017-11-11 17:19 | Procedure Note ---
Procedure Note Procedure Date Nov 11, 2017. Procedure Description Procedure Name: Right femoral arterial line Procedure time out: side/site verified, patient ID confirmed, correct procedure Consent obtained: emergent consent implied Time of procedure: 17:00 Performed by: attending Indications: diagnostic Contraindications: none Description: The right groin was prepped with ChloraPrep and draped in a sterile fashion. Utilizing full sterile protection, sterile glove sterile gown, had mask, the right femoral artery was visualized utilizing dynamic ultrasound guidance and I witnessed the program admin needle entered the blood vessel. Upon pulsatile return is able to place a guidewire and Via Seldinger technique and placed a 12 cm Arrow catheter into the right common femoral artery. There was trace of blood loss and patient tolerated the procedure well. The arterial line was secured with a StatLock device. Complications: none Patient tolerated procedure: well Post-procedure vital signs: reviewed and stable Central Line Procedure time out: side/site verified, patient ID confirmed, sterile procedure used Consent obtained: emergent consent implied Time of procedure: 16:45 Performed by: attending Indications: central drug admin., CVP monitoring Prep: chlorhexadine prep, sterile drape, sterile procedures used Central line lumen: triple Central line location: internal jugular (R) Additional details: ultrasound guidance, Selinger technique used, line sutured , good blood return CXR: other (Pending, positive lung sliding on the affected side) Complications: none Patient tolerated procedure: well Post-procedure vital signs: reviewed and stable
[2017-11-11 17:23] LABS: HEMATOCRIT 37.7 % (37-47); HEMOGLOBIN 12.4 g/dL (12.0-16.0); MEAN CELL VOLUME 98.2 fL (80-100); MEAN CORPUSCULAR HEMOGLOBIN 32.3 pg (25-34); MEAN CORPUSCULAR HGB CONC 32.9 g/dl (32-36); MEAN PLATELET VOLUME 9.5 fL (7.4-10.4); NUCLEATED RED BLOOD CELL ABS 0.36 K/uL (0-0); PLATELET COUNT 127 K/uL (130-400); RED CELL DISTRIBUTION WIDTH CV 20.5 % (11.5-14.5); RED CELL DISTRIBUTION WIDTH SD 67.1 fL (36.4-46.3); WHITE BLOOD COUNT 21.26 K/uL (4.8-10.8)
[2017-11-11 17:49] LABS: BASO % 0.3 %; BASO ABS # 0.06 K/uL (0-0.2); EOS ABS # 0.01 K/uL (0-0.5); IG# 0.45 K/uL (0.00-0.02); LYMPH % 8.7 %; LYMPH ABS # 1.84 K/uL (1.2-3.4); MONO % 3.7 %; MONO ABS # 0.78 K/uL (0.11-0.59); NEUT % 85.2 %; NEUT ABS # 18.12 K/uL (1.4-6.5)
[2017-11-11] MEDS ORDERED: LORAZEPAM 2 MG/ML 1 ML VIAL ONE (18:02)
[2017-11-11] MEDS ORDERED: MIDAZOLAM HCL 1 MG/ML 2ML VIAL ONE ×2 (19:58→23:37)
--- NOTE | 2017-11-11 20:44 | HISTORY & PHYSICAL EXAMINATION ---
DATE OF ADMISSION: 11/11/2017 At the time of dictation, [employer] was completely down, therefore, information at the time of dictation is limited. CHIEF COMPLAINT: Abdominal pain. HISTORY OF PRESENT ILLNESS: Ms. Gemma Santiago is a 67-year-old woman with significant history of end-stage renal disease, on hemodialysis, recent diagnosis of pneumonia, chronic osteomyelitis, COPD, obstructive sleep apnea, hypovitaminosis D, hyperlipidemia, hypertension, congestive heart failure, systolic dysfunction, diabetes mellitus type 2 with peripheral neuropathy. The patient was in her usual state of health until 4 days ago when she started having some mild abdominal pain and has not had any bowel movement since. Otherwise, the patient denied any fevers, chills, chest pain or shortness of breath. No recent sick contacts or recent travel. Earlier today, the patient had her normal session of hemodialysis and tolerated very well. However, abdominal pain was very significant, all generalized, and decided to come to Emergency Department for further evaluation. The patient was seen and evaluated. However, at one point, the patient was having some significant distress and complaining of shortness of breath. ED physician reevaluated the patient at bedside and the patient was moved to one of the resuscitation bases. Because of her respiratory distress, she actually consented to be intubated. She received etomidate and rocuronium. After successful intubation, however, the patient lost pulse and code blue was initiated at 1621. The patient was found to be in PEA. She received 2 doses of epinephrine and 1 amp of bicarbonate and had a return of ROSC. Due to low blood pressures, the patient was also started on Levophed drip and is currently running at 0.4. Ticket Manager was paged and came to bedside and evaluated the patient. She now has an interosseous access on her right lower extremity femoral art line and a triple lumen catheter placed in her right IJ. She remained on mechanical ventilation and will be moved up to the medical ICU. PAST MEDICAL HISTORY: End-stage renal disease, on hemodialysis Thursday, Thursday, Thursday, recent diagnosis of pneumonia, chronic osteomyelitis, COPD, CHF, systolic dysfunction, EF currently unknown, diabetes mellitus with peripheral neuropathy, hyperlipidemia, hypertension, obstructive sleep apnea and hypovitaminosis D. PAST SURGICAL HISTORY: Currently unknown due to computer problems. At the time of dictation, [employer] was down. SOCIAL HISTORY: Negative for alcohol, tobacco and drugs. ALLERGIES: HYDRALAZINE, NITRATES AND EZE INHIBITORS. REVIEW OF SYSTEMS: Unable to obtain due to current clinical condition. PHYSICAL EXAMINATION: VITAL SIGNS: Afebrile. Blood pressure manual cuff 95/53, blood pressure from femoral art line 100/37 with a MAP of 51, heart rate 90, respirations 20, currently on assist control, 100% O2 sats. GENERAL: Obese woman in mild distress, currently on mechanical ventilation. HEENT: Pupils equal, reactive to light. Extraocular muscles intact. Normal conjunctivae, nonicteric sclerae. NECK: Supple. No cervical lymphadenopathy. Trachea midline. CARDIOVASCULAR: Normal S1, S2. Regular rate and rhythm. No murmurs or gallops. No chest wall tenderness. PULMONARY: Mechanical ventilation assist control, tidal volume 500, rate 18, PEEP of 5, FiO2 100. Symmetrical chest wall expansion. No crackles, wheezing or rales. GASTROINTESTINAL: Abdomen is soft, tender to palpation. No distention or rebound. Hypoactive bowel sounds. MUSCULOSKELETAL: Normal range of motion. EXTREMITIES: No myalgias or arthralgias. Symmetrical muscle bulk. NEUROLOGIC: No neurological deficits appreciated. Moves all extremities. LABORATORY DATA: Sodium 132, potassium 4.8, chloride 97, CO2 of 23, BUN 55, creatinine 3.07, glucose 91, AST 51, ALT 81, alkaline phosphatase 967, total bilirubin 1.1, total protein 5.7, albumin 2.4, lipase 115. INR 1.1. CBC unavailable at this time. IMAGING: Chest x-ray portable, left basilar atelectasis and cardiomegaly. ASSESSMENT AND PLAN: Ms. Gemma Santiago is a 67-year-old woman who initially presented with abdominal pain. As per the patient, she has not had bowel movements for the last 4 days; however, she was found to be in respiratory distress and was intubated in the Emergency Department. Despite successful intubation, the patient had a pulseless electrical activity arrest and was given 2 doses of epinephrine and bicarb and had a return of spontaneous circulation. It is unknown cause of cardiac arrest at present time. Ticket Manager was consulted and evaluated the patient. The patient will be admitted to the medical ICU. Blood pressures are still a bit soft and she is requiring Levophed drip n the meantime. The patient is to be maintained on PAP ventilation in the meantime. Once again, some of this information is limited due to current EMR down.
[2017-11-11] MEDS ORDERED: NOREPINEPHRINE BIT IV PRN (21:00)
[2017-11-11] MEDS ORDERED: DEXTROSE 5% IV PRN (21:00)
[2017-11-11] MEDS ORDERED: FENTANYL CITRATE INJ 50 MCG/1 ML 2 ML VIAL ONE (21:35)
[2017-11-11 22:36] LABS: HEMATOCRIT 39.7 % (37-47); HEMOGLOBIN 13.1 g/dL (12.0-16.0); MEAN CELL VOLUME 96.8 fL (80-100); MEAN PLATELET VOLUME 9.8 fL (7.4-10.4); NUCLEATED RED BLOOD CELL ABS 0.29 K/uL (0-0); PLATELET COUNT 114 K/uL (130-400); RED CELL DISTRIBUTION WIDTH CV 20.6 % (11.5-14.5); RED CELL DISTRIBUTION WIDTH SD 67.7 fL (36.4-46.3); WHITE BLOOD COUNT 22.28 K/uL (4.8-10.8)
[2017-11-11 22:46] LABS: CALCIUM 5.8 mg/dl (8.5-10.1)
[2017-11-11 22:47] LABS: POTASSIUM 4.6 mmol/L (3.5-5.1)
--- NOTE | 2017-11-11 22:47 | Procedure Note ---
Procedure Note Procedure Date Nov 11, 2017. Central Line Procedure time out: side/site verified, patient ID confirmed, sterile procedure used Consent obtained: emergent consent implied Time of procedure: 20:30 Performed by: physician table games floor supervisor Indications: poor venous access, central drug admin. Prep: chlorhexadine prep, sterile drape, sterile procedures used Anesthesia: local injection, lidocaine 1% without epi Volume anesthetic (ml's): 5 Central line lumen: triple Central line location: internal jugular (R) Additional details: percutaneous placement, ultrasound guidance, Selinger technique used, line sutured, good blood return CXR: appropriate position, no pneumothorax Complications: none Patient tolerated procedure: well Post-procedure vital signs: reviewed and stable Comments: Critical Care Medicine Point of Care Bedside Ultrasound Procedure: Procedural Ultrasound Procedure Date: 11/11/2017 Indication: Hypotension, Poor Venous Access Attending: Nidhi Bonds DO Resident/Physician Inspection And Testing Supervisor: Kendra Patel PA-C If for central venous access Artery AND Vein visualized: Y Compressible Vein: Y Guidewire or Short Catheter seen in vein prior to dilation: Y Line confirmed in Vein with ultrasound: Y If no lung sliding or not obtained has CXR been ordered: Y Impression: Proper Placement without Pneumothorax Plan: * Line may be used. * Transfer levophed to CVL. * Goal Map > 65 * Discontinue IO Access Images obtained are saved for permanent record __ Consent was obtained prior to procedure. Indication, risks, and benefits were explained at length. Procedure: Procedure was performed under strict sterile field in O.R. fashion. The right neck and chest were cleaned with chloroprep scrub and the pt was draped in sterile fashion. The internal jugular vein was identified using ultrasound. After anesthetizing the area with 5cc of lidocaine, venous blood was withdrawn after accessing the vein under ultrasound guidance. The syringe was removed and a guide wire was advanced into the introducer needle.The dilator was advanced after being exchanged for the introducer needle. After appropriate dilation was obtained, the dilator was removed and the central catheter was placed over the guide wire using Seldinger technique. The wire was removed intact and the catheter was sutured at 16cm. A surgical dressing was placed over the catheter with a biofilm shield in place. At the time of the procedure each port was aspirated and then flushed properly. Pt tolerated the procedure well with no complications. Post procedure x-ray was completed, placement was appropriate and no pneumothorax was noted.
[2017-11-11 22:48] LABS: ALBUMIN 1.7 gm/dl (3.4-5.0); CREATININE 2.66 mg/dl (0.60-1.20)
[2017-11-11 22:49] LABS: TOTAL PROTEIN 4.2 gm/dl (6.4-8.2)
[2017-11-11] MEDS ORDERED: CALCIUM GLUCONATE 10% 1,000 MG in SODIUM CHLORIDE 0.9% 50ML 50 ML IV STA (22:58)
[2017-11-11] MEDS ORDERED: GABAPENTIN 100 MG CAP PO ONE (23:06)
[2017-11-11] MEDS ORDERED: CALCIUM ACETATE 667MG GELCAP PO ONE (23:06)
[2017-11-11] MEDS ORDERED: MIDAZOLAM HCL 1 MG/ML 2ML VIAL IV PRN (23:45)
[2017-11-11] MEDS ORDERED: GLUCOSE 40% GEL 15 GM TUBE PO PRN (23:45)
[2017-11-11] MEDS ORDERED: GLUCOSE 10 TABS/TUBE PO PRN (23:45)
[2017-11-11] MEDS ORDERED: GLUCAGON FOR INJ 1 MG VIAL SQ PRN (23:45)
[2017-11-11] MEDS ORDERED: FENTANYL CITRATE INJ 50 MCG/1 ML 2 ML VIAL IV PRN (23:45)
[2017-11-11] MEDS ORDERED: DEXTROSE 50% 50 ML SYR IV PRN (23:45)
[2017-11-11] MEDS: DEXTROSE 5% IV PRN (23:45)
[2017-11-11] MEDS: NOREPINEPHRINE BIT IV PRN (23:45)
[2017-11-12] VITALS (103 sets, daily range): BP systolic 22–300; BP diastolic -50–300; PULSE 31–92; TEMP 37.2–38.1; O2SAT 77–100
[2017-11-12 00:16] LABS: INFLUENZA A PCR Neg for Influ A (NEG); INFLUENZA B PCR Neg for Influ B (NEG)
[2017-11-12] MEDS: INSULIN ASPART 100 UNITS/ML 3 ML PEN SC SCH ×2 (00:25→06:00)
[2017-11-12 00:54] LABS: PHOSPHORUS 5.7 mg/dl (2.5-4.9)
[2017-11-12] MEDS ORDERED: HEPARIN SOD 5000 UNIT/0.5 ML CARP SQ ONE (01:43)
[2017-11-12] MEDS: DEXTROSE 5% IV PRN ×5 (02:24→12:53)
[2017-11-12] MEDS: NOREPINEPHRINE BIT IV PRN ×5 (02:24→12:53)
[2017-11-12 04:13] LABS: MEAN CORPUSCULAR HGB CONC 33.7 g/dl (32-36)
[2017-11-12 04:43] LABS: CREATININE 3.55 mg/dl (0.60-1.20); PHOSPHORUS 7.7 mg/dl (2.5-4.9); POTASSIUM 6.6 mmol/L (3.5-5.1)
[2017-11-12] MEDS ORDERED: DEXTROSE 50% 50 ML SYR IV STA (04:43)
[2017-11-12 04:45] LABS: CALCIUM 7.1 mg/dl (8.5-10.1)
[2017-11-12 04:50] LABS: HEMATOCRIT 42.7 % (37-47); HEMOGLOBIN 14.4 g/dL (12.0-16.0); MEAN CORPUSCULAR HEMOGLOBIN 32.7 pg (25-34); NUCLEATED RED BLOOD CELL ABS 0.55 K/uL (0-0); RED CELL DISTRIBUTION WIDTH CV 20.6 % (11.5-14.5); RED CELL DISTRIBUTION WIDTH SD 67.7 fL (36.4-46.3); WHITE BLOOD COUNT 21.99 K/uL (4.8-10.8)
[2017-11-12 04:52] LABS: PLATELET COUNT 89 K/uL (130-400)
[2017-11-12] MEDS ORDERED: CALCIUM GLUCONATE 10% 1,000 MG in SODIUM CHLORIDE 0.9% 50ML 50 ML IV STA (04:58)
[2017-11-12] MEDS ORDERED: INSULIN HUMAN REGULAR PER UNIT 10 UNITS in SYRINGE 9.9 ML IV STA (04:59)
[2017-11-12] MEDS ORDERED: SODIUM BICARB 8.4% INJ 50 MEQ/50 ML SYR IV STA (05:07)
[2017-11-12] MEDS ORDERED: DOBUTamine / D5W 500 MG IV PRN (05:45)
--- NOTE | 2017-11-12 06:07 | Critical Care Progress Note ---
Critical Care Progress Note Date of Service Nov 12, 2017. Critical Care Progress Note Pt initially responding to Levophed then required increasing amounts to maintain pressure by 0445. Pt was found to have a Ca of 5.8 the evening before and did received 1g Ca Gluc to which her pressures greatly responded. Labs at 0400 demonstrated Cr 3.55, K 6.6 increasing Mg and Phos. Pt was treated for Hyperkalemia with 1g Ca Gluc, 10u Insulin and 50mL of 50 Dextrose. Abg was checked for possible acidosis, however, demonstrated 7.332/33.4/70/17.6. 1 Amp of BiCarb was given in addition for hyperkalemia. Dobutamine was added to Levophed as pt is known to have an EF of 15-20% with a mixed systolic/diastolic heart failure. Pts bsg has been had large swings from 58 to 300. Repeat iStat is currently 138. Pt initially responded but again has a systolic of mid 80's. Repeat EKG does not demonstrate acute ischemia, though her troponin post CPR for PEA has increased from 2.36 to 3.58. Pts lactic acid has risen from 2.6- 5.9. Blood cultures have been pulled at this time. In addition, pts O2 saturation has been difficult to follow as her pulse ox demonstrates desaturations but recent abg show 92% with pO2 of 70. I have spoken with Dr. Bonds via phone and per his direction ordered D10 at 50mL/hr, Insulin infusion at 0.05u/kg, standard heparin infusion with bolus, and repeat limited echo. Dr. Bonds has arrived and will continue to monitor. CCT. 60 minutes
--- NOTE | 2017-11-12 06:52 | DIAGNOSTIC IMAGING REPORT ---
CHEST ONE VIEW PORTABLE CLINICAL HISTORY: TUBE PLACEMENT ALREADY DONE COMPARISON STUDY: 11/11/2017 FINDINGS: Endotracheal tube 5 cm above the hollis. Central catheters. Vena cava. No evidence of pneumothorax. Nasogastric tube within the stomach. Interval volume loss and/or consolidation left base. Unchanging nodular density left midlung peripherally. IMPRESSION: Endotracheal tube 5 cm above the hollis Central catheters. Vena cava. No evidence for pneumothorax. Nasogastric tube within the stomach. Interval consolidation left base The above report was generated using voice recognition software. It may contain grammatical, syntax or spelling errors. Electronically signed by: Cristiano Hernández M.D. 11/12/2017 6:50 AM Dictated Date/Time: 11/12/2017 6:48 AM
[2017-11-12 06:54] LABS: INR 1.7 (0.9-1.1); PTT PATIENT 41.1 SECONDS (21.0-31.0)
[2017-11-12 07:00] LABS: CALCIUM 6.8 mg/dl (8.5-10.1); CREATININE 3.68 mg/dl (0.60-1.20); POTASSIUM 5.8 mmol/L (3.5-5.1)
[2017-11-12] MEDS ORDERED: PIPERACILL/TAZOBAC IV 4.5 GM in DEXTROSE 5% 100ML 100 ML IV SCH (07:00)
[2017-11-12] MEDS ORDERED: DEXTROSE 10% 1,000 ML IV SCH (07:00)
[2017-11-12] MEDS ORDERED: PIPERACILL/TAZOBAC CONSULT ACTIVE PRN (07:00)
[2017-11-12] MEDS ORDERED: HEPARIN IV BOLUS 5,000 UNIT in SYRINGE 0 ML IV SCH (07:00)
[2017-11-12] MEDS ORDERED: INSULIN REGULAR 250 UNITS in SODIUM CHLORIDE 0.9% 250ML 250 ML IV SCH (07:00)
[2017-11-12] MEDS ORDERED: VANCOMYCIN CONSULT ACTIVE PRN (07:00)
[2017-11-12] MEDS ORDERED: HEPARIN 25,000 UNIT/500ML D5W 500 ML IV SCH (07:00)
[2017-11-12] MEDS ORDERED: VANCOMYCIN IV 1,500 MG in SODIUM CHLORIDE 0.9% 500ML 500 ML IV ONE (07:15)
[2017-11-12] MEDS ORDERED: PIPERACILL/TAZOBAC IV 3.375 GM in DEXTROSE 5% 100ML IV ONE (07:15)
[2017-11-12] MEDS ORDERED: CALCIUM ACETATE 667MG GELCAP PO SCH (07:15)
[2017-11-12] MEDS: ALBUMIN HUMAN 5% 12.5 GM/250 ML VIAL IV SCH ×2 (07:25→07:43)
[2017-11-12] MEDS ORDERED: DOXYCYCLINE IV 100 MG in DEXTROSE 5% 100ML 100 ML IV SCH (07:30)
--- NOTE | 2017-11-12 07:52 | Critical Care Consultation ---
Critical Care Consultation Date of Consultation: Nov 11, 2017. Attending Physician: Oziel Reason for Consultation: CODE BLUE, cardiac arrest History of Present Illness History is obtained from prior records in the emergency department physician. Patient was recently admitted to [facility] on November 03 until November 10 with the diagnosis of end-stage renal disease on hemodialysis Thursday, chronic diastolic heart failure with new systolic dysfunction. She was also diagnosed with COPD and bilateral pneumonia. She also had consultations by cardiology, nephrology, pulmonary. During her hospital course there was a plan for left heart cath but reportedly this was canceled because the patient did not want undergo invasive testing. She is being slowly weaned from her steroids secondary to COPD exacerbation. A echo was obtained with an EF of 20-25%, this was obtained November 05, 2017 Per the emergency department physician she had went to dialysis today and under gone routine dialysis and presented to the emergency department with lower abdominal pain rating 10 out of 10, she had not had a bowel movement in several days was found to have significant constipation on rectal exam. She became acutely dyspneic, was felt to require intubation, a IV was lost necessitating IO placement into the right tibia and intubation was completed. Shortly after the intubation there were setting up for central venous access, the patient lost pulse at that time she was noted to be in pulseless electrical activity and a CODE BLUE was called. She received a total one milligram epinephrine 1 amp of bicarb, she had return of spontaneous circulation at that time. In the emergency setting I have placed a right internal jugular triple-lumen catheter as well as a right femoral arterial line for hemodynamic monitoring. 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 (31) DIAB MANJIT WO COMPL, TYPE II OR UNSPEC TYPE, NOT UNCNTRLD (42) Hypercholesterolemia (47) Hypertension (54) Influenza A (59) Obesity (60) Obstructive sleep apnea (64) Peripheral neuropathy (66) Proteinuria (71) Secondary hyperparathyroidism of renal origin (75) Vitamin D deficiency, unspecified Family History FH: HTN (hypertension) Social History Smoking Status: Never Smoker Drug Use: none Marital Status: Housing Status: lives with family Occupation Status: retired Allergies Coded Allergies: Hydralazine (Verified Allergy, Intermediate, rash, 11/11/17) Isosorbide Nitrate (Verified Allergy, Unknown, ITCHING, 11/11/17) EZE Inhibitors (Verified Adverse Reaction, Unknown, DUE TO CKD, 11/11/17) Home Medications Scheduled Albuterol Sulfate (Albuterol Sulfate), 1 VIAL NEB Q6 Amoxicillin (Amoxil), 500 MG PO DAILY Calcium Acetate (Phosphate Bin (Phoslo 667 Mg), 667 MG PO BID Carvedilol (Coreg), 25 MG PO BID Doxycycline Monohydrate (Monodox), 100 MG PO BID Gabapentin (Neurontin), 200 MG PO TID Home O2 Therapy (Oxygen), 2 LITERS NA PRN Insulin Aspart (Novolog Flexpen), 1 DOSE SC TID Insulin Glargine (Lantus Solostar), 15 UNITS SC AMPM Mometasone Furoate-Formoterol (Dulera 200/5 Mcg), 2 PUFFS INH BID Prednisone (Prednisone), 10 MG PO DAILY Tiotropium [place] (Spiriva Handihaler), 1 CAP INH DAILY Vitamin B Cmplx/Vitc/Folic Ac (Nephrocaps), 1 CAP PO QAM Scheduled PRN Benzonatate (Tessalon Perles), 100 MG PO TID PRN for Cough Current Inpatient Medications Current Inpatient Medications Medications (Trade) Dose Ordered Sig/Tu Route Start Time Stop Time Status Last Admin Dose Admin Morphine Sulfate (MoRPHine SULFATE INJ) 2 mg Q30M PRN IV 11/11/17 12:30 11/25/17 12:29 Norepinephrine Bitartrate 8 mg/ Dextrose 508 ml @ 0 mls/hr Q0M PRN IV 11/11/17 16:45 12/11/17 16:44 Sodium Chloride 500 ml @ 999 mls/hr Q31M STAT IV 11/11/17 16:37 11/11/17 17:07 Review of Systems Unable to obtain secondary to patient being intubated Physical Exam Date Time Temp Pulse Resp B/P (MAP) Pulse Ox O2 Delivery O2 Flow Rate FiO2 11/11/17 17:04 88 18 132/66 99 11/11/17 17:01 88 140/69 98 11/11/17 16:55 86 148/71 98 11/11/17 16:50 86 118/65 98 11/11/17 16:48 85 78/51 96 11/11/17 16:45 83 84/50 94 11/11/17 16:43 83 86/53 96 11/11/17 16:34 117 11/11/17 16:32 84 218/92 94 11/11/17 16:28 112 11/11/17 16:21 50 11/11/17 16:08 78 11/11/17 13:50 75 24 110/76 96 Nasal Cannula 2.0 11/11/17 12:12 96 11/11/17 12:03 99 Room Air 11/11/17 12:03 99 Room Air 11/11/17 12:00 111 29 101/60 99 Room Air General Appearance: obese, other (Appears older than stated age) Head: normocephalic, atraumatic ENT: other (Endotracheal tube present) Neck: trachea midline, no thyromegaly Respiratory: breath sounds normal, clear to auscultation Cardiovasular: normal S1S2, no M/G/R Abdomen: other (Nondistended) Genitourinary - Female: external genitalia normal Upper Extremities: no edema Lower Extremities: no edema Neuro: other (Recent administration of neuromuscular blockade) Psychiatric: other (Unable to evaluate secondary to condition and intubation) Laboratory Results Last 24 Hours Test 11/11/17 12:26 11/11/17 13:44 11/11/17 16:57 Urine Color YELLOW Urine Appearance CLOUDY Urine pH 5.0 Urine Specific [place] 1.015 Urine Protein 1+ Urine Glucose (UA) NEG Urine Ketones NEG Urine Occult Blood NEG Urine Nitrite NEG Urine Bilirubin NEG Urine Urobilinogen NEG Urine Leukocyte Esterase MODERATE Urine WBC (Auto) 10-30 /hpf Urine RBC (Auto) 0-4 /hpf Urine Hyaline Casts (Auto) 1-5 /lpf Urine Epithelial Cells (Auto) >30 /lpf Urine Bacteria (Auto) NEG Urine Yeast (Auto) BUDDING Prothrombin Time 11.9 SECONDS Prothromb Time International Ratio 1.1 Activated Partial Thromboplast Time 23.1 SECONDS Partial Thromboplastin Ratio 0.9 Sodium Level 132 mmol/L Potassium Level 4.8 mmol/L Chloride Level 97 mmol/L Carbon Dioxide Level 23 mmol/L Anion Gap 12.0 mmol/L Blood Urea Nitrogen 55 mg/dl Creatinine 3.07 mg/dl Est Creatinine Clear Calc Drug Dose 18.0 ml/min Estimated GFR () 17.2 Estimated GFR (Non- 14.8 BUN/Creatinine Ratio 17.9 Random Glucose 91 mg/dl Calcium Level 7.7 mg/dl Total Bilirubin 1.1 mg/dl Aspartate Amino Transf (AST/SGOT) 51 U/L Alanine Aminotransferase (ALT/SGPT) 81 U/L Alkaline Phosphatase 969 U/L Total Protein 5.7 gm/dl Albumin 2.4 gm/dl Globulin 3.3 gm/dl Albumin/Globulin Ratio 0.7 Lipase 115 U/L Diagnostic Results I reviewed the initial chest x-ray subsequent to intubation Assessment & Plan Reason Critically Ill: 67-year-old female with PEA cardiac arrest with return of spontaneous circulation PLAN: Neuro: Pain and sedation protocol -CT head rule out ICH Resp: Acute respiratory failure secondary to cardiac arrest -Wean ventilator as tolerated COPD -Restart steroids at previous taper CV: PEA cardiac arrest -Repeat limited echo -Consult cardiology -Trend troponins Fluids/Renal: End-stage renal disease -Consult nephrology -Patient underwent hemodialysis today -Mild volume expansion secondary to underfilled right ventricle noted on limited bedside ultrasound and emergency department ID: Afebrile -Recently treated pneumonia -The history upon her presentation in the emergency department does not appear to be consistent with infectious process -Holding antibiotics at this time GI/Nutrition: N.p.o. -Reported history of constipation -Check LFTs -No pain on repeat examination, no history of paroxysmal A. fib consider mesenteric ischemia low on the differential Heme: Anemia -Heparin infusion secondary to possible cardiac etiologies Endocrine: Blood sugars per ICU protocol Code Status: Full I have personally spent 40 minutes of critical care time in the direct management of this patient. This is a life/limb threatening event. This includes time spent evaluating patient, direct bedside care, chart review, placing orders, interpretation of diagnostic studies, discussion with consultants, patient, and/or family members regarding treatment decisions, as well as other required patient management activities. This time is exclusive of all separately billable procedures, and teaching time and separate from and in addition to any other critical care service time. This note reflects a date of service of November 11, 2017, delay of note filing into chart secondary to [employer] downtime
--- NOTE | 2017-11-12 08:00 | DIAGNOSTIC IMAGING REPORT ---
CT ANGIOGRAM OF THE CHEST CLINICAL HISTORY: Cardiac arrest. COMPARISON STUDY: Chest x-ray dated 11/11/2017. Chest CT scans dated 10/14/2017 and 10/08/2008. TECHNIQUE: Following the IV administration of 116 cc of Optiray 320, CT angiogram of the chest was performed from the upper abdomen to the thoracic inlet utilizing the pulmonary embolus protocol. Images are reviewed in the axial, sagittal, and coronal planes. 3-D MIPS images are created and assessed. IV contrast was administered without complication. A dose lowering technique was utilized adhering to the principles of ALARA. The examination is degraded by streak artifact from the patient's arms which could not be elevated above the chest as well as by motion artifact. CT DOSE: 678.35 mGycm FINDINGS: Thyroid: Imaged portions of the thyroid gland are normal in size and attenuation. Thoracic aorta: The thoracic aorta is normal in caliber and demonstrates standard 3-vessel arch anatomy. No dissection is seen. Pulmonary vasculature: The pulmonary trunk is dilated, measuring 3.4 cm in diameter. This suggests pulmonary artery hypertension. There are no filling defects identified in main, lobar, or segmental pulmonary branches to suggest pulmonary embolus. Heart: The heart is enlarged and without pericardial effusion. Lungs and pleural spaces: An endotracheal tube terminates above the hollis. The trachea appears clear. Evaluation of the lung parenchyma is degraded by motion artifact. No pneumothorax is identified. There is segmental atelectasis at the left lung base. There is a 1.6 cm nodular opacity in the left upper lobe seen on image #184. This has decreased in size from 10/14/2017 when it measured up to 2.5 cm. Dependent atelectasis is seen at the right lung base. No pleural effusion is identified. Mediastinum: There is no mediastinal lymphadenopathy. Susana: Clear. Axillae: There is no axillary lymphadenopathy. Upper abdomen: There is a tiny hiatal hernia. The partially visualized kidneys demonstrate cortical atrophy. There is a small volume of perihepatic and perisplenic ascites. Skeletal structures: The skeletal structures are osteopenic. No lytic or blastic bony lesions are seen. There are acute right anterior 2nd through 7th rib fractures as well as acute left anterior 2nd through 8th rib fractures. Several these are mildly distracted. IMPRESSION: 1. Streak and motion compromised examination. 2. There is no evidence of central pulmonary embolus in the main, lobar, or proximal segmental pulmonary arteries. 3. There are numerous acute anterior rib fractures seen bilaterally. 4. There is no pneumothorax. 5. Segmental atelectasis is seen at the right lung base. 6. There is a 1.6 cm nodular density in the left upper lobe. This has decreased in size from 10/14/2017 when it measured 2.5 cm. This is likely on an infectious/inflammatory basis, and follow-up chest CT in 3 months time is recommended to document complete resolution. 7. Cardiomegaly with evidence of pulmonary artery hypertension. 8. A small volume of upper abdominal ascites is noted. 9. Additional findings as above. Electronically signed by: Henok Barr M.D. 11/12/2017 7:27 AM Dictated Date/Time: 11/12/2017 7:18 AM
--- NOTE | 2017-11-12 08:00 | DIAGNOSTIC IMAGING REPORT ---
CT OF THE HEAD WITHOUT CONTRAST CLINICAL HISTORY: arrest COMPARISON STUDY: No previous studies for comparison. CT DOSE: 823.94 mGycm TECHNIQUE: Helical axial images of the head were obtained without IV contrast. Automated exposure control was utilized for the study. A dose lowering technique was utilized adhering to the principles of ALARA. FINDINGS: No acute intracranial hemorrhage, midline shift or mass effect is present. Basilar cisterns are patent. There are no extra axial collections. Ventricular system is unremarkable. Rosen-white differentiation is preserved. There are no findings to suggest acute dural sinus thrombosis or acute territorial infarct. There are mild secretions and mucosal thickening within the sinuses with bilateral maxillary sinus and left sphenoid sinus air-fluid levels. There are no significant calvarial abnormalities. IMPRESSION: 1. No acute intracranial findings. 2. Sinus mucosal thickening and air-fluid levels, as described above. Electronically signed by: Roger Gorman M.D. 11/11/2017 10:48 PM Dictated Date/Time: 11/11/2017 10:47 PM
--- NOTE | 2017-11-12 08:12 | DIAGNOSTIC IMAGING REPORT ---
SINGLE VIEW CHEST CLINICAL HISTORY: Respiratory failure. Status post cardiac arrest. FINDINGS: An AP, portable, upright chest radiograph is compared to chest x-ray and chest CT dated 11/11/2017. The examination is significantly degraded by portable technique and patient rotation. Endotracheal tube, and enteric tube, and the right internal jugular central venous catheter are unchanged in position. The heart is enlarged. The pulmonary vasculature is noncongested. Atelectasis is again seen at the left lung base. The right lung appears clear. No large pleural effusion or pneumothorax is seen. The skeletal structures are osteopenic. The rib fractures seen by CT are not apparent by x-ray. IMPRESSION: 1. Cardiomegaly without radiographic evidence of congestive failure. 2. Left basilar atelectasis is unchanged. 3. Stable lines and tubes. Electronically signed by: Henok Barr M.D. 11/12/2017 8:10 AM Dictated Date/Time: 11/12/2017 8:09 AM
[2017-11-12] MEDS ORDERED: EPINEPHRINE HCL 4 MG in DEXTROSE 5% 250ML IV PRN (08:15)
[2017-11-12] MEDS ORDERED: NURSING VERBAL MED ORDER ONE (08:15)
[2017-11-12] MEDS ORDERED: DEXTROSE 50% 50 ML SYR IV ONE (08:30)
--- NOTE | 2017-11-12 08:40 | Clinical Documentation Query ---
CLINICAL DOCUMENTATION QUERY 67-year-old woman who initially presented with abdominal pain. She ultimately suffered cardiac arrest with development of PEA. She did regain a perfusing rhythm but since that time has required the use of pressors and arterial pressure monitoring In your clinical opinion is this patient being managed for: ( ) Severe sepsis with septic shock in setting of stercoral colitis ( ) Cardiogenic Shock in setting of cardiac arrest. ( ) Not Agree ( ) Other explanation of clinical findings (Please Explain) ( ) Unable to determine (Please Define) ( ) Need to Discuss The medical record reflects the following clinical findings, treatment, and risk factors. Clinical Indicators: PEA arrest, Art BP 79/31 (MAP 47), WBC's 22.28, ABG 7.31/48/377/23, Lactic acid 5.9, Troponin 2.360, Procalcitonin 43.34, Treatment: IVF boluses, Norepinephrine, Dopamine, Arterial line, CVC Risk Factors: Age, ?colitis, ESRD, cardiac arrest Please clarify and document your clinical opinion in the progress notes and discharge summary. Terms such as "probable", "suspected", "likely", "questionable", "possible", or "still to be ruled out" are acceptable. IF IN AGREEMENT, YOU MUST DOCUMENT ABOVE DIAGNOSTIC STATEMENT IN DAILY PROGRESS NOTES AND DISCHARGE SUMMARY. This document is not part of the patient's record. Thank You, Pedro Deras, YRN [phone]
[2017-11-12] MEDS ORDERED: VANCOMYCIN IV 1,000 MG in SODIUM CHLORIDE 0.9% 250ML 250 ML IV SCH (09:00)
[2017-11-12] MEDS ORDERED: FORMOTEROL SCH (09:00)
[2017-11-12] MEDS ORDERED: MOMETASONE SCH (09:00)
[2017-11-12] MEDS ORDERED: TIOTROPIUM BROMIDE 5 PUFF/90 MCG INH INH SCH (09:00)
[2017-11-12] MEDS ORDERED: NEPHROCAPS PO SCH (09:00)
[2017-11-12] MEDS ORDERED: INSULIN GLARGINE SOLOSTAR 100 UNITS/ML 3 ML PEN SC SCH (09:00)
[2017-11-12] MEDS: GABAPENTIN 100 MG CAP PO SCH ×2 (09:05→13:31)
[2017-11-12] MEDS: DEXTROSE 50% 50 ML SYR IV SCH ×7 (09:36→15:00)
[2017-11-12] MEDS ORDERED: PANTOprazole INJ 40 MG in SYRINGE 0 ML IV SCH (11:00)
--- NOTE | 2017-11-12 11:26 | Critical Care Progress Note ---
Critical Care Progress Note Date of Service Nov 12, 2017. ICU Day ICU Day Number: [address] Bonds Subjective Overnight patient continued to decompensate. Potassium continued to climb had to start insulin and dextrose infusion for medical management, attempting to limit fluid as possible. Repeat EKGs do not demonstrate ST elevation [place]. We have contacted the family and readdress CODE STATUS and advised patient appears to be decompensating Objective General: GCS 3 T. Skin: Cool, pale, Head: Atraumatic Ears, nose, mouth and throat: Endotracheal tube present Cardiovascular: Poor perfusion, increased capillary refill time Respiratory: Rhonchi bilaterally Gastrointestinal: Non distended, no evidence of grimace with deep palpation Musculoskeletal: Missing toe on right lower extremity Assessment & Plan PLAN: Neuro: Acute encephalopathy -Likely secondary to shock state -No evidence of retention on waveform analysis Resp: COPD -Restart steroids at previous taper -No evidence of retention on ABG Hypoxic respiratory failure -Increasing oxygen requirements this morning CV: PEA cardiac arrest -Repeat limited echo -Discussed limited echo with Dr. Burgos of cardiology, globally decreased EF of 15% -Dr. Burgos had an extensive discussion with the patient on the last admission, she did not want aggressive treatment, would not undergo revascularization therapy if that was recommended, patient did not feel risks of cardiac cath were worth the benefit. 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 Known constipation -Possible stercoral colitis Heme: -Heparin infusion secondary to possible cardiac etiologies Endocrine: Blood sugars per ICU protocol I contacted the patient's son, Henok at approximately 730 this morning. Updated him on the clinical status and was in agreement that patient would not want heroic measures should she suffer another cardiac arrest. I have updated patient's CODE STATUS to DO NOT RESUSCITATE in event of cardiac arrest. I discussed with the entire family, 3 sons and 1 via telephone of the grave nature of her disease process and that I do believe she is actively dying. The patient has previously expressed her desire to not undergo heroic measures. Family on agreement that she would not want to continue in current state. They are leaning towards withdrawal of care at this time however they are waiting for additional family members to be present at the bedside. I have updated Dr. Burgos of this. I believe the patient is in an end-stage terminal condition without chance of meaningful recovery. I have personally spent 55 minutes of critical care time in the direct management of this patient. This is a life/limb threatening event. This includes time spent evaluating patient, direct bedside care, chart review, placing orders, interpretation of diagnostic studies, discussion with consultants, patient, and/or family members regarding treatment decisions, as well as other required patient management activities. This time is exclusive of all separately billable procedures, and teaching time and separate from and in addition to any other critical care service time. Data Medications: Current Inpatient Medications Medications (Trade) Dose Ordered Sig/Tu Route Start Time Stop Time Status Last Admin Dose Admin Norepinephrine Bitartrate 8 mg/ Dextrose 258 ml @ 0 mls/hr Q0M PRN IV 11/11/17 22:36 12/11/17 22:35 11/12/17 07:24 0 MLS/HR Calcium Acetate (Phoslo Cap) 667 mg BIDM PO 11/12/17 07:15 12/12/17 07:14 11/12/17 09:05 667 MG Gabapentin (Neurontin Cap) 200 mg TID PO 11/12/17 09:00 12/12/17 08:59 11/12/17 09:05 200 MG Prednisone (PredniSONE TAB) 10 mg DAILY PO 11/12/17 09:00 12/12/17 08:59 11/12/17 09:05 10 MG Tiotropium Kenefic (Spiriva Handihaler Inhaler) 1 puff DAILY INH 11/12/17 09:00 12/12/17 08:59 Miscellaneous Information (Order Awaiting Action) 1 ea BID N/A 11/12/17 09:00 12/12/17 08:59 Midazolam HCl (Versed Inj) 1 mg Q1H PRN IV 11/11/17 23:45 12/11/17 23:44 Fentanyl Citrate (Fentanyl Inj) 50 mcg Q2H PRN IV 11/11/17 23:45 11/25/17 23:44 11/12/17 04:37 50 MCG Glucose (Glucose 40% Gel) 15-30 GRAMS 15 GRAMS... UD PRN PO 11/11/17 23:45 12/11/17 23:44 Glucose (Glucose Chew Tab) 4-8 Tablets 4 Tabl... UD PRN PO 11/11/17 23:45 12/11/17 23:44 Dextrose (Dextrose 50% 50ML Syringe) 25-50ML OF 50% DW IV FOR... UD PRN IV 11/11/17 23:45 12/11/17 23:44 11/12/17 03:21 50 ML Glucagon (Glucagon Inj) 1 mg UD PRN SQ 11/11/17 23:45 12/11/17 23:44 Heparin Sodium (Porcine) (Heparin Sq 5000 Unit/0.5ml) 5,000 unit Q12H SQ 11/12/17 18:00 12/12/17 17:59 Dobutamine HCl 0 ml @ 0 mls/hr Q0M PRN IV 11/12/17 05:45 12/12/17 05:44 11/12/17 05:55 6.8 MLS/HR Insulin Human Regular 250 units/ Sodium Chloride 252.5 ml @ 4.5 mls/hr Q24H IV 11/12/17 07:00 12/12/17 06:59 11/12/17 08:08 4.5 MLS/HR Heparin Sodium/ Dextrose 500 ml @ 24 mls/hr [id number] IV 11/12/17 07:00 12/12/17 06:59 11/12/17 07:00 24 MLS/HR Miscellaneous Information (Consult) 1 ea UD PRN N/A 11/12/17 07:00 12/12/17 06:59 Miscellaneous Information (Consult) 1 ea UD PRN N/A 11/12/17 07:00 12/12/17 06:59 Doxycycline Hyclate 100 mg/ Dextrose 110 ml @ 50 mls/hr BID IV 11/12/17 07:30 11/14/17 07:29 11/12/17 08:08 50 MLS/HR Piperacillin Sod/ Tazobactam Sod 3.375 gm/Dextrose 115 ml @ 28.75 mls/ hr Q12@0400,1600 IV 11/12/17 16:00 11/14/17 15:59 Epinephrine HCl 4 mg/Dextrose 254 ml @ 0 mls/hr Q0M PRN IV 11/12/17 08:15 12/12/17 08:14 Pantoprazole Sodium 40 mg/ Syringe 10 ml @ 5 mls/min DAILY@11 IV 11/12/17 11:00 12/12/17 10:59 11/12/17 10:46 5 MLS/MIN Dextrose (Dextrose 50% 50ML Syringe) 50 ml Q1H IV 11/12/17 09:00 11/12/17 13:59 11/12/17 09:36 50 ML Dextrose (Dextrose 50% 50ML Syringe) 50 ml Q1H IV 11/12/17 14:00 12/12/17 13:59 Vital Signs: Date Time Temp Pulse Resp B/P (MAP) Pulse Ox O2 Delivery O2 Flow Rate FiO2 11/12/17 10:20 87 29 (134) 93 143/127 11/12/17 10:15 86 24 77/40 (52) 92 94/41 11/12/17 10:05 86 32 (52) 94 92/41 11/12/17 10:01 87 31 62/36 (52) 95 91/40 11/12/17 09:50 86 24 (54) 98 108/42 11/12/17 09:45 86 26 91/36 (55) 98 111/41 11/12/17 09:35 85 31 (55) 96 111/41 11/12/17 09:30 84 30 77/32 (51) 95 94/40 11/12/17 09:20 85 30 (51) 94 90/41 11/12/17 09:15 86 29 64/38 (51) 94 92/40 11/12/17 09:05 85 29 (51) 95 94/40 11/12/17 09:00 85 29 79/34 (51) 96 92/39 11/12/17 08:50 86 26 (52) 96 97/40 11/12/17 08:45 85 30 77/37 (57) 95 99/41 11/12/17 08:35 88 19 (55) 95 107/41 11/12/17 08:30 87 26 95/37 (54) 95 105/41 11/12/17 08:20 86 19 (-50) 94 78/-50 11/12/17 08:15 85 17 64/36 (52) 92 97/41 11/12/17 08:05 85 17 (49) 87 89/38 11/12/17 08:05 85 17 (49) 87 89/38 11/12/17 08:01 86 24 76/43 (49) 85 89/38 11/12/17 08:00 100 11/12/17 08:00 Mechanical Ventilator 11/12/17 07:57 84 14 73/36 (49) 81 89/39 11/12/17 07:50 85 18 (48) 77 84/39 11/12/17 07:46 83 17 71/40 (146) 274/8 11/12/17 07:35 91 22 (45) 88 83/34 11/12/17 07:31 50 11/12/17 07:30 88 25 88/42 (49) 96 97/37 11/12/17 07:24 84 18 70/39 (44) 89 74/28 11/12/17 07:20 76 22 (35) 57/25 11/12/17 07:16 73 22 51/29 (35) 54/30 11/12/17 07:05 90 30 (49) 86/37 11/12/17 07:01 31 29 60/37 (48) 83 83/36 11/12/17 06:50 90 30 (49) 85/39 11/12/17 06:46 91 24 68/41 (48) 89/36 11/12/17 06:35 87 33 (44) 90 83/33 11/12/17 06:31 91 30 70/38 (47) 91 90/35 11/12/17 06:20 90 23 (44) 87 85/33 11/12/17 06:19 90 26 80/38 (46) 86 90/35 11/12/17 06:05 88 33 (48) 90 88/37 11/12/17 06:01 86 32 62/40 (48) 87 86/37 11/12/17 06:00 86 32 (45) 89 79/31 11/12/17 05:45 89 31 (40) 94 83/29 11/12/17 05:31 91 29 77/48 (48) 91 111/34 11/12/17 05:30 91 27 (45) 89 99/32 11/12/17 05:26 91 26 110/46 (300) 95 300/34 11/12/17 05:15 86 22 (48) 85 90/36 11/12/17 05:01 85 21 73/46 (47) 88 86/36 11/12/17 05:00 40 11/12/17 05:00 86 25 (48) 90 91/36 11/12/17 04:53 85 25 70/37 (36) 73/26 11/12/17 04:33 87 28 88/48 (49) 98/37 11/12/17 04:31 82 30 31/24 (44) 77 79/30 11/12/17 04:27 87 30 61/47 (46) 87/33 11/12/17 04:22 86 31 /45 (44) 84/32 11/12/17 04:01 89 30 106/54 (47) 91 89/32 11/12/17 04:00 88 32 (48) 100 90/34 11/12/17 04:00 40 11/12/17 04:00 37.4 11/12/17 04:00 Mechanical Ventilator 11/12/17 03:31 89 30 82/42 (43) 93 85/33 11/12/17 03:21 85 22 119/45 (53) 92 135/37 11/12/17 03:14 89 24 83/42 (47) 95 93/36 11/12/17 03:12 89 24 /29 (46) 98 93/35 11/12/17 03:03 85 30 44/31 (46) 91 90/36 11/12/17 03:01 90 27 49/40 (48) 95 98/37 11/12/17 03:00 89 26 (47) 95 96/36 11/12/17 02:31 91 24 97/18 (50) 96 98/38 11/12/17 02:18 40 11/12/17 02:02 90 22 84/34 (47) 98 93/37 11/12/17 02:01 90 26 22/ (50) 99 98/39 11/12/17 02:00 90 23 (49) 98 96/38 11/12/17 01:07 90 28 88/32 (54) 96 108/42 11/12/17 01:05 91 26 72/43 (51) 98 102/39 11/12/17 01:04 90 29 74/36 (52) 97 106/40 11/12/17 01:01 90 29 78/49 (53) 98 109/41 11/12/17 01:00 92 29 (50) 95 99/38 11/12/17 00:47 91 28 96/42 (52) 96 107/40 11/12/17 00:33 91 27 84/55 (55) 91 102/44 11/12/17 00:31 92 25 72/48 (55) 94 103/44 11/12/17 00:15 92 24 104/62 (69) 94 124/54 11/12/17 00:00 100 11/12/17 00:00 Mechanical Ventilator 11/12/17 00:00 37.2 11/12/17 00:00 89 26 96/50 (73) 95 88/64 11/11/17 23:46 87 22 88/51 (55) 93 99/43 11/11/17 23:30 88 25 106/52 (79) 96 119/50 11/11/17 23:16 90 26 89/55 (64) 96 120/51 11/11/17 23:01 88 25 101/51 (65) 95 112/51 11/11/17 23:00 86 23 (62) 95 107/50 11/11/17 22:32 50 11/11/17 22:00 84 18 115/53 (73) 96 Mechanical Ventilator 50.0 11/11/17 21:55 84 18 115/53 (73) 96 11/11/17 21:45 83 18 98/49 (65) 95 11/11/17 21:25 87 20 121/62 (81) 93 11/11/17 21:06 84 23 109/58 (75) 96 11/11/17 20:55 84 21 80/43 (55) 97 11/11/17 20:46 84 20 117/54 (75) 95 11/11/17 20:25 81 21 123/55 (77) 95 11/11/17 20:16 83 20 101/47 (65) 89 11/11/17 20:01 82 21 101/45 (63) 97 Mechanical Ventilator 50.0 11/11/17 19:25 36.4 80 21 107/48 (67) 100 Mechanical Ventilator 100.0 11/11/17 19:25 100 11/11/17 17:16 89 97/64 99 11/11/17 17:10 88 98/62 96 11/11/17 17:04 88 18 132/66 99 11/11/17 17:01 88 140/69 98 11/11/17 16:55 86 148/71 98 11/11/17 16:50 86 118/65 98 11/11/17 16:48 85 78/51 96 11/11/17 16:45 83 84/50 94 11/11/17 16:43 83 86/53 96 11/11/17 16:34 117 11/11/17 16:32 84 218/92 94 11/11/17 16:28 112 11/11/17 16:21 50 11/11/17 16:08 78 11/11/17 13:50 75 24 110/76 96 Nasal Cannula 2.0 11/11/17 12:12 96 11/11/17 12:03 99 Room Air 11/11/17 12:03 99 Room Air 11/11/17 12:00 111 29 101/60 99 Room Air Laboratory Results: Last 24 Hours Test 11/11/17 12:26 11/11/17 13:44 11/11/17 16:57 11/11/17 19:51 Urine Color YELLOW Urine Appearance CLOUDY Urine pH 5.0 Urine Specific [place]rae [place] 1.015 Urine Protein 1+ Urine Glucose (UA) NEG Urine Ketones NEG Urine Occult Blood NEG Urine Nitrite NEG Urine Bilirubin NEG Urine Urobilinogen NEG Urine Leukocyte Esterase MODERATE Urine WBC (Auto) 10-30 /hpf Urine RBC (Auto) 0-4 /hpf Urine Hyaline Casts (Auto) 1-5 /lpf Urine Epithelial Cells (Auto) >30 /lpf Urine Bacteria (Auto) NEG Urine Yeast (Auto) BUDDING Prothrombin Time 11.9 SECONDS Prothromb Time International Ratio 1.1 Activated Partial Thromboplast Time 23.1 SECONDS Partial Thromboplastin Ratio 0.9 Sodium Level 132 mmol/L Potassium Level 4.8 mmol/L Chloride Level 97 mmol/L Carbon Dioxide Level 23 mmol/L Anion Gap 12.0 mmol/L Blood Urea Nitrogen 55 mg/dl Creatinine 3.07 mg/dl Est Creatinine Clear Calc Drug Dose 18.0 ml/min Estimated GFR () 17.2 Estimated GFR (Non- 14.8 BUN/Creatinine Ratio 17.9 Random Glucose 91 mg/dl Calcium Level 7.7 mg/dl Total Bilirubin 1.1 mg/dl Aspartate Amino Transf (AST/SGOT) 51 U/L Alanine Aminotransferase (ALT/SGPT) 81 U/L Alkaline Phosphatase 969 U/L Total Protein 5.7 gm/dl Albumin 2.4 gm/dl Globulin 3.3 gm/dl Albumin/Globulin Ratio 0.7 Lipase 115 U/L White Blood Count 21.26 K/uL Red Blood Count 3.84 M/uL Hemoglobin 12.4 g/dL Hematocrit 37.7 % Mean Corpuscular Volume 98.2 fL Mean Corpuscular Hemoglobin 32.3 pg Mean Corpuscular Hemoglobin Concent 32.9 g/dl Platelet Count 127 K/uL Mean Platelet Volume 9.5 fL Neutrophils (%) (Auto) 85.2 % Lymphocytes (%) (Auto) 8.7 % Monocytes (%) (Auto) 3.7 % Eosinophils (%) (Auto) 0.0 % Basophils (%) (Auto) 0.3 % Neutrophils # (Auto) 18.12 K/uL Lymphocytes # (Auto) 1.84 K/uL Monocytes # (Auto) 0.78 K/uL Eosinophils # (Auto) 0.01 K/uL Basophils # (Auto) 0.06 K/uL RDW Standard Deviation 67.1 fL RDW Coefficient of Variation 20.5 % Immature Granulocyte % (Auto) 2.1 % Immature Granulocyte # (Auto) 0.45 K/uL Nucleated RBC Absolute Count (auto) 0.36 K/uL Nucleated Red Blood Cells % 1.7 % Anisocytosis PRESENT Arterial Blood pH 7.31 Arterial Blood Partial Pressure CO2 48 mmHg Arterial Blood Partial Pressure O2 377 mm/Hg Arterial Blood HCO3 23 mmol/L Arterial Blood Oxygen Saturation 99.8 % Arterial Blood Base Excess -3.2 mEq/L Arterial Blood Gas Delivery 100% Jose Test POS NA Blood Gas Sample Site Art Line Bedside Blood Gas pH (LAB) 7.38 Bedside Blood Gas pCO2 (LAB) 44 mmHg Bedside Blood Gas pO2 (LAB) 319 mmHg Bedside Blood Gas HCO3 (LAB) 26 meq/L Bedside Blood Gas Total CO2 28 mEq/l Bedside Blood Gas Base Excess (LAB) 1.0 meq/L Bedside Blood Gas O2 Saturation 100.0 % Oxygen Delivery Device Ventilator Bedside Oxygen Rate (breaths/min) 18 Blood Gas Minute Ventilation 10.1 Bedside FiO2 100 % Blood Gas Tidal Volume 500 Blood Gas PEEP 5 Test 11/11/17 21:45 11/11/17 23:08 11/12/17 00:07 11/12/17 00:24 White Blood Count 22.28 K/uL Red Blood Count 4.10 M/uL Hemoglobin 13.1 g/dL Hematocrit 39.7 % Mean Corpuscular Volume 96.8 fL Mean Corpuscular Hemoglobin 32.0 pg Mean Corpuscular Hemoglobin Concent 33.0 g/dl RDW Standard Deviation 67.7 fL RDW Coefficient of Variation 20.6 % Platelet Count 114 K/uL Mean Platelet Volume 9.8 fL Nucleated RBC Absolute Count (auto) 0.29 K/uL Nucleated Red Blood Cells % 1.3 % Sodium Level 137 mmol/L Potassium Level 4.6 mmol/L Chloride Level 106 mmol/L Carbon Dioxide Level 21 mmol/L Anion Gap 10.0 mmol/L Blood Urea Nitrogen 60 mg/dl Creatinine 2.66 mg/dl Est Creatinine Clear Calc Drug Dose 20.8 ml/min Estimated GFR () 20.4 Estimated GFR (Non- 17.6 BUN/Creatinine Ratio 22.5 Random Glucose 92 mg/dl Lactic Acid Level 2.6 mmol/L Calcium Level 5.8 mg/dl Phosphorus Level 5.7 mg/dl Magnesium Level 2.0 mg/dl Total Bilirubin 0.8 mg/dl Aspartate Amino Transf (AST/SGOT) 193 U/L Alanine Aminotransferase (ALT/SGPT) 162 U/L Alkaline Phosphatase 1138 U/L Troponin I 2.360 ng/ml Total Protein 4.2 gm/dl Albumin 1.7 gm/dl Globulin 2.5 gm/dl Albumin/Globulin Ratio 0.7 Procalcitonin 43.34 ng/ml Thyroid Stimulating Hormone (TSH) 1.620 uIu/ml Random Cortisol 41.78 mcg/dl Ionized Calcium 0.91 mmol/l Blood Gas Sample Site Art Line Bedside Blood Gas pH (LAB) 7.43 Bedside Blood Gas pCO2 (LAB) 35 mmHg Bedside Blood Gas pO2 (LAB) 86 mmHg Bedside Blood Gas HCO3 (LAB) 23 meq/L Bedside Blood Gas Total CO2 24 mEq/l Bedside Blood Gas Base Excess (LAB) -1.0 meq/L Bedside Blood Gas O2 Saturation 97.0 % Joes Test NA Oxygen Delivery Device Ventilator Bedside Oxygen Rate (breaths/min) 18 Blood Gas Minute Ventilation 12.1 Bedside FiO2 50 % Blood Gas Tidal Volume 500 Blood Gas PEEP 5 Bedside Glucose (other) 103 mg/dl Test 11/12/17 03:14 11/12/17 03:38 11/12/17 03:57 11/12/17 04:41 Bedside Glucose 58 mg/dl 116 mg/dl 88 mg/dl White Blood Count 21.99 K/uL Red Blood Count 4.40 M/uL Hemoglobin 14.4 g/dL Hematocrit 42.7 % Mean Corpuscular Volume 97.0 fL Mean Corpuscular Hemoglobin 32.7 pg Mean Corpuscular Hemoglobin Concent 33.7 g/dl RDW Standard Deviation 67.7 fL RDW Coefficient of Variation 20.6 % Platelet Count 89 K/uL Mean Platelet Volume 12.0 fL Nucleated RBC Absolute Count (auto) 0.55 K/uL Nucleated Red Blood Cells % 2.5 % Platelet Estimate DECREASED Sodium Level 129 mmol/L Potassium Level 6.6 mmol/L Chloride Level 97 mmol/L Carbon Dioxide Level 17 mmol/L Anion Gap 15.0 mmol/L Blood Urea Nitrogen 76 mg/dl Creatinine 3.55 mg/dl Est Creatinine Clear Calc Drug Dose 15.6 ml/min Estimated GFR () 14.4 Estimated GFR (Non- 12.4 BUN/Creatinine Ratio 21.5 Random Glucose 174 mg/dl Lactic Acid Level 5.9 mmol/L Calcium Level 7.1 mg/dl Phosphorus Level 7.7 mg/dl Magnesium Level 2.5 mg/dl Troponin I 3.580 ng/ml Test 11/12/17 04:54 11/12/17 05:31 11/12/17 06:10 11/12/17 06:19 Blood Gas Sample Site Art Line Bedside Blood Gas pH (LAB) 7.33 Bedside Blood Gas pCO2 (LAB) 33 mmHg Bedside Blood Gas pO2 (LAB) 70 mmHg Bedside Blood Gas HCO3 (LAB) 18 meq/L Bedside Blood Gas Total CO2 19 mEq/l Bedside Blood Gas Base Excess (LAB) -8.0 meq/L Bedside Blood Gas O2 Saturation 92.0 % Jose Test NA Oxygen Delivery Device Ventilator Bedside Oxygen Rate (breaths/min) 18 Blood Gas Minute Ventilation 12.5 Bedside FiO2 40 % Blood Gas Tidal Volume 500 Blood Gas PEEP 5 Bedside Glucose (other) 304 mg/dl Sodium Level 132 mmol/L Potassium Level 5.8 mmol/L Chloride Level 98 mmol/L Carbon Dioxide Level 19 mmol/L Anion Gap 15.0 mmol/L Blood Urea Nitrogen 75 mg/dl Creatinine 3.68 mg/dl Est Creatinine Clear Calc Drug Dose 15.0 ml/min Estimated GFR () 13.8 Estimated GFR (Non- 11.9 BUN/Creatinine Ratio 20.5 Random Glucose 142 mg/dl Calcium Level 6.8 mg/dl Phosphorus Level 7.0 mg/dl Magnesium Level 2.3 mg/dl Prothrombin Time 17.2 SECONDS Prothromb Time International Ratio 1.7 Activated Partial Thromboplast Time 41.1 SECONDS Partial Thromboplastin Ratio 1.6 Test 11/12/17 06:25 11/12/17 07:52 11/12/17 07:56 11/12/17 08:23 Bedside Glucose (other) 138 mg/dl 116 mg/dl Blood Gas Sample Site Art Line Bedside Blood Gas pH (LAB) 7.27 Bedside Blood Gas pCO2 (LAB) 43 mmHg Bedside Blood Gas pO2 (LAB) 50 mmHg Bedside Blood Gas HCO3 (LAB) 19 meq/L Bedside Blood Gas Total CO2 21 mEq/l Bedside Blood Gas Base Excess (LAB) -8.0 meq/L Bedside Blood Gas O2 Saturation 79.0 % Jose Test NA Oxygen Delivery Device Ventilator Bedside Oxygen Rate (breaths/min) 18 Blood Gas Minute Ventilation 12.9 Bedside FiO2 70 % Blood Gas Tidal Volume 500 Blood Gas PEEP 5 Bedside Glucose 124 mg/dl Test 11/12/17 08:26 11/12/17 09:25 11/12/17 09:57 11/12/17 10:00 Lactic Acid Level 6.8 mmol/L Ionized Calcium 0.90 mmol/l Bedside Glucose (other) 155 mg/dl 241 mg/dl Urine Color YELLOW Urine Appearance TURBID Urine pH 5.0 Urine Specific [place] 1.019 Urine Protein 4+ Urine Glucose (UA) NEG Urine Ketones NEG Urine Occult Blood NEG Urine Nitrite NEG Urine Bilirubin NEG Urine Urobilinogen NEG Urine Leukocyte Esterase SMALL Urine WBC (Auto) 10-30 /hpf Urine RBC (Auto) 0-4 /hpf Urine Hyaline Casts (Auto) 1-5 /lpf Urine Epithelial Cells (Auto) >30 /lpf Urine Bacteria (Auto) NEG Urine Renal Epithelial Cells /lpf Urine Crystals AMORPHOUS SEDIMENT Urine Yeast (Auto) BUD W/ HYPHAE Test 11/12/17 10:26 11/12/17 10:54 Bedside Glucose (other) 209 mg/dl 191 mg/dl
--- NOTE | 2017-11-12 11:34 | Nephrology Consultation ---
Nephrology Consultation Date & Providers Date of Consultation: Nov 12, 2017. Primary Care Provider: Karla Todd M.D. Referring Provider: Reason for Consultation End-stage renal disease on hemodialysis. History of Present Illness Gemma is a 67-year-old female with past medical history significant for end- stage renal disease on hemodialysis, hypertension, diabetes and COPD admitted to the hospital with cardiac arrest. Nephrologic consult was requested to manage hemodialysis. Electronic medical records including labs and imaging were reviewed in detail during patient's visit. Her son Vitaly was at bedside during the visit. Gemma has end-stage renal disease on hemodialysis for last more than 1 year, has been on dialysis at [facility], on dialysis Thursday, Thursday, Thursday. She had dialysis on Thursday completed full treatment and after dialysis she came to the emergency room with abdominal pain. She recently had repeated hospital admission over last 2 months started with flu and then developed pneumonia and multiple admission after that for respiratory distress. Her last admission was from November 05 to . During that hospital admission CT scan of chest was concerning for left lung nodule. Pulmonary was consulted and was planning to do bronchoscopy however she was found to have low ejection fraction on echo and Cardiology was consulted. Eventually there was plan to do cardiac catheterization on 11/09/2017. However on the day of the planned cardiac catheterization patient decided not to have the cath done as she was feeling better. She was discharged home on slow taper steroid dose for possible COPD exacerbation. After discharge she was feeling well and she went for her regular dialysis treatment yesterday and completed the treatment. However at the end of the treatment she was having abdominal pain and since she did not have any bowel movement since the discharge and presented to the emergency room. While in ED she was becoming hypoxic with respiratory distress requiring intubation. Right after intubation she went into pulseless electrical activity and she was resuscitated with return of spontaneous circulation and moved to the intensive care unit. CTA was negative for any significant pulmonary embolism. Currently she is on max dose of 3 pressor and blood pressure running low. Lab this morning showed hyperkalemia potassium 6.6, improved to 5.8. Currently remained unresponsive. Allergies Coded Allergies: Hydralazine (Verified Allergy, Intermediate, rash, 11/11/17) Isosorbide Nitrate (Verified Allergy, Unknown, ITCHING, 11/11/17) EZE Inhibitors (Verified Adverse Reaction, Unknown, DUE TO CKD, 11/11/17) Inpatient Medications Current Inpatient Medications Medications (Trade) Dose Ordered Sig/Tu Route Start Time Stop Time Status Last Admin Dose Admin Norepinephrine Bitartrate 8 mg/ Dextrose 258 ml @ 0 mls/hr Q0M PRN IV 11/11/17 22:36 12/11/17 22:35 11/12/17 07:24 0 MLS/HR Calcium Acetate (Phoslo Cap) 667 mg BIDM PO 11/12/17 07:15 12/12/17 07:14 Gabapentin (Neurontin Cap) 200 mg TID PO 11/12/17 09:00 12/12/17 08:59 Insulin Aspart (novoLOG ASPART) Q6H SC 11/12/17 00:00 12/12/17 00:00 Insulin Glargine (Lantus Solostar Pen) 15 units BID SC 11/12/17 09:00 12/12/17 08:59 Prednisone (PredniSONE TAB) 10 mg DAILY PO 11/12/17 09:00 12/12/17 08:59 Tiotropium [place] (Spiriva Handihaler Inhaler) 1 puff DAILY INH 11/12/17 09:00 12/12/17 08:59 Vitamin B Complex/ Vit C/Folic Acid (Nephrocaps) 1 cap QAM PO 11/12/17 09:00 12/12/17 08:59 Miscellaneous Information (Order Awaiting Action) 1 ea BID N/A 11/12/17 09:00 12/12/17 08:59 Midazolam HCl (Versed Inj) 1 mg Q1H PRN IV 11/11/17 23:45 12/11/17 23:44 Fentanyl Citrate (Fentanyl Inj) 50 mcg Q2H PRN IV 11/11/17 23:45 11/25/17 23:44 11/12/17 04:37 50 MCG Glucose (Glucose 40% Gel) 15-30 GRAMS 15 GRAMS... UD PRN PO 11/11/17 23:45 12/11/17 23:44 Glucose (Glucose Chew Tab) 4-8 Tablets 4 Tabl... UD PRN PO 11/11/17 23:45 12/11/17 23:44 Dextrose (Dextrose 50% 50ML Syringe) 25-50ML OF 50% DW IV FOR... UD PRN IV 11/11/17 23:45 12/11/17 23:44 11/12/17 03:21 50 ML Glucagon (Glucagon Inj) 1 mg UD PRN SQ 11/11/17 23:45 12/11/17 23:44 Heparin Sodium (Porcine) (Heparin Sq 5000 Unit/0.5ml) 5,000 unit Q12H SQ 11/12/17 18:00 12/12/17 17:59 Dobutamine HCl 0 ml @ 0 mls/hr Q0M PRN IV 11/12/17 05:45 12/12/17 05:44 11/12/17 05:55 6.8 MLS/HR Dextrose 1,000 ml @ 50 mls/hr Q20H IV 11/12/17 07:00 12/12/17 06:59 11/12/17 07:26 50 MLS/HR Insulin Human Regular 250 units/ Sodium Chloride 252.5 ml @ 4.5 mls/hr Q24H IV 11/12/17 07:00 12/12/17 06:59 11/12/17 08:08 4.5 MLS/HR Heparin Sodium/ Dextrose 500 ml @ 24 mls/hr [id number] IV 11/12/17 07:00 12/12/17 06:59 11/12/17 07:00 24 MLS/HR Miscellaneous Information (Consult) 1 ea UD PRN N/A 11/12/17 07:00 12/12/17 06:59 Miscellaneous Information (Consult) 1 ea UD PRN N/A 11/12/17 07:00 12/12/17 06:59 Doxycycline Hyclate 100 mg/ Dextrose 110 ml @ 50 mls/hr BID IV 11/12/17 07:30 11/14/17 07:29 11/12/17 08:08 50 MLS/HR Piperacillin Sod/ Tazobactam Sod 3.375 gm/Dextrose 115 ml @ 28.75 mls/ hr Q12@0400,1600 IV 11/12/17 16:00 11/14/17 15:59 Vancomycin HCl 1500 mg/Sodium Chloride 530 ml @ 200 mls/hr NOW ONCE IV 11/12/17 07:15 11/12/17 09:53 11/12/17 07:31 200 MLS/HR Epinephrine HCl 4 mg/Dextrose 254 ml @ 0 mls/hr Q0M PRN IV 11/12/17 08:15 12/12/17 08:14 Pantoprazole Sodium 40 mg/ Syringe 10 ml @ 5 mls/min DAILY@11 IV 11/12/17 11:00 12/12/17 10:59 Family History FH: HTN (hypertension) Social History Smoking Status: Never Smoker Drug Use: none Marital Status: Housing Status: lives with family Occupation: retired Review of Systems A complete review of systems was performed. Pertinent positives are noted above. All other systems are negative. Physical Exam Date Time Temp Pulse Resp B/P (MAP) Pulse Ox O2 Delivery O2 Flow Rate FiO2 11/12/17 07:31 50 11/12/17 06:01 86 32 62/40 (48) 87 86/37 11/12/17 06:00 86 32 (45) 89 79/31 11/12/17 05:45 89 31 (40) 94 83/29 11/12/17 05:31 91 29 77/48 (48) 91 111/34 11/12/17 05:30 91 27 (45) 89 99/32 11/12/17 05:26 91 26 110/46 (300) 95 300/34 11/12/17 05:15 86 22 (48) 85 90/36 11/12/17 05:01 85 21 73/46 (47) 88 86/36 11/12/17 05:00 40 11/12/17 05:00 86 25 (48) 90 91/36 11/12/17 04:53 85 25 70/37 (36) 73/26 11/12/17 04:33 87 28 88/48 (49) 98/37 11/12/17 04:31 82 30 31/24 (44) 77 79/30 11/12/17 04:27 87 30 61/47 (46) 87/33 11/12/17 04:22 86 31 /45 (44) 84/32 11/12/17 04:01 89 30 106/54 (47) 91 89/32 11/12/17 04:00 88 32 (48) 100 90/34 11/12/17 04:00 40 11/12/17 04:00 37.4 11/12/17 04:00 Mechanical Ventilator 11/12/17 03:31 89 30 82/42 (43) 93 85/33 11/12/17 03:21 85 22 119/45 (53) 92 135/37 11/12/17 03:14 89 24 83/42 (47) 95 93/36 11/12/17 03:12 89 24 /29 (46) 98 93/35 11/12/17 03:03 85 30 44/31 (46) 91 90/36 11/12/17 03:01 90 27 49/40 (48) 95 98/37 11/12/17 03:00 89 26 (47) 95 96/36 11/12/17 02:31 91 24 97/18 (50) 96 98/38 11/12/17 02:18 40 11/12/17 02:02 90 22 84/34 (47) 98 93/37 11/12/17 02:01 90 26 22/ (50) 99 98/39 11/12/17 02:00 90 23 (49) 98 96/38 11/12/17 01:07 90 28 88/32 (54) 96 108/42 11/12/17 01:05 91 26 72/43 (51) 98 102/39 11/12/17 01:04 90 29 74/36 (52) 97 106/40 11/12/17 01:01 90 29 78/49 (53) 98 109/41 11/12/17 01:00 92 29 (50) 95 99/38 11/12/17 00:47 91 28 96/42 (52) 96 107/40 11/12/17 00:33 91 27 84/55 (55) 91 102/44 11/12/17 00:31 92 25 72/48 (55) 94 103/44 11/12/17 00:15 92 24 104/62 (69) 94 124/54 11/12/17 00:00 100 11/12/17 00:00 Mechanical Ventilator 11/12/17 00:00 37.2 11/12/17 00:00 89 26 96/50 (73) 95 88/64 11/11/17 23:46 87 22 88/51 (55) 93 99/43 11/11/17 23:30 88 25 106/52 (79) 96 119/50 11/11/17 23:16 90 26 89/55 (64) 96 120/51 11/11/17 23:01 88 25 101/51 (65) 95 112/51 11/11/17 23:00 86 23 (62) 95 107/50 11/11/17 22:32 50 11/11/17 22:00 84 18 115/53 (73) 96 Mechanical Ventilator 50.0 11/11/17 21:55 84 18 115/53 (73) 96 11/11/17 21:45 83 18 98/49 (65) 95 11/11/17 21:25 87 20 121/62 (81) 93 11/11/17 21:06 84 23 109/58 (75) 96 11/11/17 20:55 84 21 80/43 (55) 97 11/11/17 20:46 84 20 117/54 (75) 95 11/11/17 20:25 81 21 123/55 (77) 95 11/11/17 20:16 83 20 101/47 (65) 89 11/11/17 20:01 82 21 101/45 (63) 97 Mechanical Ventilator 50.0 11/11/17 19:25 36.4 80 21 107/48 (67) 100 Mechanical Ventilator 100.0 11/11/17 19:25 100 11/11/17 17:16 89 97/64 99 11/11/17 17:10 88 98/62 96 11/11/17 17:04 88 18 132/66 99 11/11/17 17:01 88 140/69 98 11/11/17 16:55 86 148/71 98 11/11/17 16:50 86 118/65 98 11/11/17 16:48 85 78/51 96 11/11/17 16:45 83 84/50 94 11/11/17 16:43 83 86/53 96 11/11/17 16:34 117 11/11/17 16:32 84 218/92 94 11/11/17 16:28 112 11/11/17 16:21 50 11/11/17 16:08 78 11/11/17 13:50 75 24 110/76 96 Nasal Cannula 2.0 11/11/17 12:12 96 11/11/17 12:03 99 Room Air 11/11/17 12:03 99 Room Air 11/11/17 12:00 111 29 101/60 99 Room Air GENERAL: elderly female, intubated and sedated HEENT: Atraumatic, normocephalic. NECK: Supple, no JVD, no carotid bruit appreciated. ENT: No sinus tenderness MOUTH and THROAT: Moist oral mucosa, no oral ulcer or pharyngeal erythema RESPIRATORY: Crackles bilaterally CARDIOVASCULAR: S1, S2 normal, rate rhythm regular. ABDOMEN: Soft, nontender, positive bowel sound. MUSCULOSKELETAL: No CVA tenderness. No joint swelling, erythema or tenderness. Normal range of motion. SKIN: No skin rash EXTREMITY: No lower extremity edema NEURO: Intubated and sedated, unresponsive Laboratory Results Last 24 Hours Test 11/11/17 12:26 11/11/17 13:44 11/11/17 16:57 11/11/17 19:51 Urine Color YELLOW Urine Appearance CLOUDY Urine pH 5.0 Urine Specific [place] 1.015 Urine Protein 1+ Urine Glucose (UA) NEG Urine Ketones NEG Urine Occult Blood NEG Urine Nitrite NEG Urine Bilirubin NEG Urine Urobilinogen NEG Urine Leukocyte Esterase MODERATE Urine WBC (Auto) 10-30 /hpf Urine RBC (Auto) 0-4 /hpf Urine Hyaline Casts (Auto) 1-5 /lpf Urine Epithelial Cells (Auto) >30 /lpf Urine Bacteria (Auto) NEG Urine Yeast (Auto) BUDDING Prothrombin Time 11.9 SECONDS Prothromb Time International Ratio 1.1 Activated Partial Thromboplast Time 23.1 SECONDS Partial Thromboplastin Ratio 0.9 Sodium Level 132 mmol/L Potassium Level 4.8 mmol/L Chloride Level 97 mmol/L Carbon Dioxide Level 23 mmol/L Anion Gap 12.0 mmol/L Blood Urea Nitrogen 55 mg/dl Creatinine 3.07 mg/dl Est Creatinine Clear Calc Drug Dose 18.0 ml/min Estimated GFR () 17.2 Estimated GFR (Non- 14.8 BUN/Creatinine Ratio 17.9 Random Glucose 91 mg/dl Calcium Level 7.7 mg/dl Total Bilirubin 1.1 mg/dl Aspartate Amino Transf (AST/SGOT) 51 U/L Alanine Aminotransferase (ALT/SGPT) 81 U/L Alkaline Phosphatase 969 U/L Total Protein 5.7 gm/dl Albumin 2.4 gm/dl Globulin 3.3 gm/dl Albumin/Globulin Ratio 0.7 Lipase 115 U/L White Blood Count 21.26 K/uL Red Blood Count 3.84 M/uL Hemoglobin 12.4 g/dL Hematocrit 37.7 % Mean Corpuscular Volume 98.2 fL Mean Corpuscular Hemoglobin 32.3 pg Mean Corpuscular Hemoglobin Concent 32.9 g/dl Platelet Count 127 K/uL Mean Platelet Volume 9.5 fL Neutrophils (%) (Auto) 85.2 % Lymphocytes (%) (Auto) 8.7 % Monocytes (%) (Auto) 3.7 % Eosinophils (%) (Auto) 0.0 % Basophils (%) (Auto) 0.3 % Neutrophils # (Auto) 18.12 K/uL Lymphocytes # (Auto) 1.84 K/uL Monocytes # (Auto) 0.78 K/uL Eosinophils # (Auto) 0.01 K/uL Basophils # (Auto) 0.06 K/uL RDW Standard Deviation 67.1 fL RDW Coefficient of Variation 20.5 % Immature Granulocyte % (Auto) 2.1 % Immature Granulocyte # (Auto) 0.45 K/uL Nucleated RBC Absolute Count (auto) 0.36 K/uL Nucleated Red Blood Cells % 1.7 % Anisocytosis PRESENT Arterial Blood pH 7.31 Arterial Blood Partial Pressure CO2 48 mmHg Arterial Blood Partial Pressure O2 377 mm/Hg Arterial Blood HCO3 23 mmol/L Arterial Blood Oxygen Saturation 99.8 % Arterial Blood Base Excess -3.2 mEq/L Arterial Blood Gas Delivery 100% Jose Test POS NA Blood Gas Sample Site Art Line Bedside Blood Gas pH (LAB) 7.38 Bedside Blood Gas pCO2 (LAB) 44 mmHg Bedside Blood Gas pO2 (LAB) 319 mmHg Bedside Blood Gas HCO3 (LAB) 26 meq/L Bedside Blood Gas Total CO2 28 mEq/l Bedside Blood Gas Base Excess (LAB) 1.0 meq/L Bedside Blood Gas O2 Saturation 100.0 % Oxygen Delivery Device Ventilator Bedside Oxygen Rate (breaths/min) 18 Blood Gas Minute Ventilation 10.1 Bedside FiO2 100 % Blood Gas Tidal Volume 500 Blood Gas PEEP 5 Test 11/11/17 21:45 11/11/17 23:08 11/12/17 00:07 11/12/17 00:24 White Blood Count 22.28 K/uL Red Blood Count 4.10 M/uL Hemoglobin 13.1 g/dL Hematocrit 39.7 % Mean Corpuscular Volume 96.8 fL Mean Corpuscular Hemoglobin 32.0 pg Mean Corpuscular Hemoglobin Concent 33.0 g/dl RDW Standard Deviation 67.7 fL RDW Coefficient of Variation 20.6 % Platelet Count 114 K/uL Mean Platelet Volume 9.8 fL Nucleated RBC Absolute Count (auto) 0.29 K/uL Nucleated Red Blood Cells % 1.3 % Sodium Level 137 mmol/L Potassium Level 4.6 mmol/L Chloride Level 106 mmol/L Carbon Dioxide Level 21 mmol/L Anion Gap 10.0 mmol/L Blood Urea Nitrogen 60 mg/dl Creatinine 2.66 mg/dl Est Creatinine Clear Calc Drug Dose 20.8 ml/min Estimated GFR () 20.4 Estimated GFR (Non- 17.6 BUN/Creatinine Ratio 22.5 Random Glucose 92 mg/dl Lactic Acid Level 2.6 mmol/L Calcium Level 5.8 mg/dl Phosphorus Level 5.7 mg/dl Magnesium Level 2.0 mg/dl Total Bilirubin 0.8 mg/dl Aspartate Amino Transf (AST/SGOT) 193 U/L Alanine Aminotransferase (ALT/SGPT) 162 U/L Alkaline Phosphatase 1138 U/L Troponin I 2.360 ng/ml Total Protein 4.2 gm/dl Albumin 1.7 gm/dl Globulin 2.5 gm/dl Albumin/Globulin Ratio 0.7 Procalcitonin 43.34 ng/ml Thyroid Stimulating Hormone (TSH) 1.620 uIu/ml Random Cortisol 41.78 mcg/dl Ionized Calcium 0.91 mmol/l Blood Gas Sample Site Art Line Bedside Blood Gas pH (LAB) 7.43 Bedside Blood Gas pCO2 (LAB) 35 mmHg Bedside Blood Gas pO2 (LAB) 86 mmHg Bedside Blood Gas HCO3 (LAB) 23 meq/L Bedside Blood Gas Total CO2 24 mEq/l Bedside Blood Gas Base Excess (LAB) -1.0 meq/L Bedside Blood Gas O2 Saturation 97.0 % Jose Test NA Oxygen Delivery Device Ventilator Bedside Oxygen Rate (breaths/min) 18 Blood Gas Minute Ventilation 12.1 Bedside FiO2 50 % Blood Gas Tidal Volume 500 Blood Gas PEEP 5 Bedside Glucose (other) 103 mg/dl Test 11/12/17 03:14 11/12/17 03:38 11/12/17 03:57 11/12/17 04:41 Bedside Glucose 58 mg/dl 116 mg/dl 88 mg/dl White Blood Count 21.99 K/uL Red Blood Count 4.40 M/uL Hemoglobin 14.4 g/dL Hematocrit 42.7 % Mean Corpuscular Volume 97.0 fL Mean Corpuscular Hemoglobin 32.7 pg Mean Corpuscular Hemoglobin Concent 33.7 g/dl RDW Standard Deviation 67.7 fL RDW Coefficient of Variation 20.6 % Platelet Count 89 K/uL Mean Platelet Volume 12.0 fL Nucleated RBC Absolute Count (auto) 0.55 K/uL Nucleated Red Blood Cells % 2.5 % Platelet Estimate DECREASED Sodium Level 129 mmol/L Potassium Level 6.6 mmol/L Chloride Level 97 mmol/L Carbon Dioxide Level 17 mmol/L Anion Gap 15.0 mmol/L Blood Urea Nitrogen 76 mg/dl Creatinine 3.55 mg/dl Est Creatinine Clear Calc Drug Dose 15.6 ml/min Estimated GFR () 14.4 Estimated GFR (Non- 12.4 BUN/Creatinine Ratio 21.5 Random Glucose 174 mg/dl Lactic Acid Level 5.9 mmol/L Calcium Level 7.1 mg/dl Phosphorus Level 7.7 mg/dl Magnesium Level 2.5 mg/dl Troponin I 3.580 ng/ml Test 11/12/17 04:54 11/12/17 05:31 11/12/17 06:10 11/12/17 06:19 Blood Gas Sample Site Art Line Bedside Blood Gas pH (LAB) 7.33 Bedside Blood Gas pCO2 (LAB) 33 mmHg Bedside Blood Gas pO2 (LAB) 70 mmHg Bedside Blood Gas HCO3 (LAB) 18 meq/L Bedside Blood Gas Total CO2 19 mEq/l Bedside Blood Gas Base Excess (LAB) -8.0 meq/L Bedside Blood Gas O2 Saturation 92.0 % Jose Test NA Oxygen Delivery Device Ventilator Bedside Oxygen Rate (breaths/min) 18 Blood Gas Minute Ventilation 12.5 Bedside FiO2 40 % Blood Gas Tidal Volume 500 Blood Gas PEEP 5 Bedside Glucose (other) 304 mg/dl Sodium Level 132 mmol/L Potassium Level 5.8 mmol/L Chloride Level 98 mmol/L Carbon Dioxide Level 19 mmol/L Anion Gap 15.0 mmol/L Blood Urea Nitrogen 75 mg/dl Creatinine 3.68 mg/dl Est Creatinine Clear Calc Drug Dose 15.0 ml/min Estimated GFR () 13.8 Estimated GFR (Non- 11.9 BUN/Creatinine Ratio 20.5 Random Glucose 142 mg/dl Calcium Level 6.8 mg/dl Phosphorus Level 7.0 mg/dl Magnesium Level 2.3 mg/dl Prothrombin Time 17.2 SECONDS Prothromb Time International Ratio 1.7 Activated Partial Thromboplast Time 41.1 SECONDS Partial Thromboplastin Ratio 1.6 Test 11/12/17 06:25 11/12/17 07:52 11/12/17 07:56 11/12/17 08:26 Bedside Glucose (other) 138 mg/dl 116 mg/dl Blood Gas Sample Site Art Line Bedside Blood Gas pH (LAB) 7.27 Bedside Blood Gas pCO2 (LAB) 43 mmHg Bedside Blood Gas pO2 (LAB) 50 mmHg Bedside Blood Gas HCO3 (LAB) 19 meq/L Bedside Blood Gas Total CO2 21 mEq/l Bedside Blood Gas Base Excess (LAB) -8.0 meq/L Bedside Blood Gas O2 Saturation 79.0 % Jose Test NA Oxygen Delivery Device Ventilator Bedside Oxygen Rate (breaths/min) 18 Blood Gas Minute Ventilation 12.9 Bedside FiO2 70 % Blood Gas Tidal Volume 500 Blood Gas PEEP 5 Ionized Calcium 0.90 mmol/l Impression (1) ESRD (end stage renal disease) on dialysis (2) Cardiac arrest (3) Lung mass 67-year-old female with end-stage renal disease on hemodialysis Thursday, Thursday, Thursday. She had full treatment of dialysis yesterday after dialysis she presented to the emergency room with them abdominal pain. While in the ER she became hypoxic and required intubation. After intubation she became pulseless eventually she was successfully resuscitated and transferred to the ICU. She had repeated hospital admission over last 2 months for flu and pneumonia and eventually repeated admission with hypoxic respiratory failure. Found to have small lung nodule, in order to do a bronch she had 2D echo showing significant drop in ejection fraction. Evaluated by Cardiology and was the plan to have cardiac catheterization however the she refused cardiac catheterization last Thursday as she was otherwise feeling better and she was discharged home on Thursday. After discharge she was feeling fine however after dialysis Thursday she was having abdominal pain and presented to the emergency room. Currently her blood pressure low on maximum dose of 3 pressor, remained unresponsive. Has hyperkalemia. Recommendations --she was given insulin D50, will wait for repeat electrolyte in 4 hours. If potassium remains high, she may need dialysis however it is highly unlikely that she will tolerate dialysis with her current hemodynamics situation. --discussed with her son in detail about her clinical condition and explained that she is critically ill and her chance of meaningful recovery is very slim and suggested that the family make a decision about goals of care. Her son mentioned that knowing her he did not feel like she would want any aggressive intervention including intubation. He is waiting for other family members to come and make a decision possibly toward comfort care only. --discussed with the intensive care team Will follow.
[2017-11-12 12:58] LABS: PTT PATIENT > 300.0 SECONDS (21.0-31.0)
[2017-11-12 14:04] LABS: PTT PATIENT > 300.0 SECONDS (21.0-31.0)
--- NOTE | 2017-11-12 14:22 | Pharmacy Progress Note ---
Pharmacy Antibiotic Consult Date of Service: Nov 12, 2017. Pharmacy Dosing Scope Pharmacy is consulted to initiate vancomycin IV dosing therapy, order appropriate labs and adjust drug dose/frequency. Subjective The patient is a 67 year old female admitted on Nov 11, 2017 at 19:24. Objective Height (Feet): 5 Height (Inches): 2.00 Weight (Kilograms): 89.800 Lab Results (24hrs): Test 11/11/17 16:57 11/11/17 21:45 11/11/17 23:08 11/12/17 03:57 Immature Granulocyte % (Auto) 2.1 % White Blood Count 21.26 K/uL (4.8-10.8) 22.28 K/uL (4.8-10.8) 21.99 K/uL (4.8-10.8) Red Blood Count 3.84 M/uL (4.2-5.4) 4.10 M/uL (4.2-5.4) 4.40 M/uL (4.2-5.4) Hemoglobin 12.4 g/dL (12.0-16.0) 13.1 g/dL (12.0-16.0) 14.4 g/dL (12.0-16.0) Hematocrit 37.7 % (37-47) 39.7 % (37-47) 42.7 % (37-47) Mean Corpuscular Volume 98.2 fL (80-100) 96.8 fL (80-100) 97.0 fL (80-100) Mean Corpuscular Hemoglobin 32.3 pg (25-34) 32.0 pg (25-34) 32.7 pg (25-34) Mean Corpuscular Hemoglobin Concent 32.9 g/dl (32-36) 33.0 g/dl (32-36) 33.7 g/dl (32-36) Platelet Count 127 K/uL (130-400) 114 K/uL (130-400) 89 K/uL (130-400) Mean Platelet Volume 9.5 fL (7.4-10.4) 9.8 fL (7.4-10.4) 12.0 fL (7.4-10.4) Neutrophils (%) (Auto) 85.2 % Lymphocytes (%) (Auto) 8.7 % Monocytes (%) (Auto) 3.7 % Eosinophils (%) (Auto) 0.0 % Basophils (%) (Auto) 0.3 % Neutrophils # (Auto) 18.12 K/uL (1.4-6.5) Lymphocytes # (Auto) 1.84 K/uL (1.2-3.4) Monocytes # (Auto) 0.78 K/uL (0.11-0.59) Eosinophils # (Auto) 0.01 K/uL (0-0.5) Basophils # (Auto) 0.06 K/uL (0-0.2) Immature Granulocyte # (Auto) 0.45 K/uL (0.00-0.02) Anisocytosis PRESENT Arterial Blood pH 7.31 (7.35-7.45) Arterial Blood Partial Pressure CO2 48 mmHg (35-46) Arterial Blood Partial Pressure O2 377 mm/Hg (80-95) Arterial Blood HCO3 23 mmol/L (19-24) Arterial Blood Oxygen Saturation 99.8 % (90-95) Arterial Blood Base Excess -3.2 mEq/L (-9-1.8) Arterial Blood Gas Delivery 100% Jose Test POS (POS) RDW Standard Deviation 67.7 fL (36.4-46.3) 67.7 fL (36.4-46.3) RDW Coefficient of Variation 20.6 % (11.5-14.5) 20.6 % (11.5-14.5) Nucleated RBC Absolute Count (auto) 0.29 K/uL (0-0) 0.55 K/uL (0-0) Nucleated Red Blood Cells % 1.3 % 2.5 % Total Bilirubin 0.8 mg/dl (0.2-1) Aspartate Amino Transf (AST/SGOT) 193 U/L (15-37) Alanine Aminotransferase (ALT/SGPT) 162 U/L (12-78) Alkaline Phosphatase 1138 U/L (45-117) Total Protein 4.2 gm/dl (6.4-8.2) Albumin 1.7 gm/dl (3.4-5.0) Globulin 2.5 gm/dl (2.5-4.0) Albumin/Globulin Ratio 0.7 (0.9-2) Procalcitonin 43.34 ng/ml (0-0.5) Thyroid Stimulating Hormone (TSH) 1.620 uIu/ml (0.300-4.500) Random Cortisol 41.78 mcg/dl Ionized Calcium 0.91 mmol/l (1.12-1.32) Platelet Estimate DECREASED Sodium Level 129 mmol/L (136-145) Potassium Level 6.6 mmol/L (3.5-5.1) Chloride Level 97 mmol/L (98-107) Carbon Dioxide Level 17 mmol/L (21-32) Anion Gap 15.0 mmol/L (3-11) Blood Urea Nitrogen 76 mg/dl (7-18) Creatinine 3.55 mg/dl (0.60-1.20) Est Creatinine Clear Calc Drug Dose 15.6 ml/min Estimated GFR () 14.4 Estimated GFR (Non- 12.4 BUN/Creatinine Ratio 21.5 (10-20) Random Glucose 174 mg/dl (70-99) Lactic Acid Level 5.9 mmol/L (0.4-2.0) Calcium Level 7.1 mg/dl (8.5-10.1) Phosphorus Level 7.7 mg/dl (2.5-4.9) Magnesium Level 2.5 mg/dl (1.8-2.4) Troponin I 3.580 ng/ml (0-0.045) Test 11/12/17 04:41 11/12/17 04:54 11/12/17 06:10 11/12/17 06:19 Bedside Glucose 88 mg/dl (70-90) Blood Gas Sample Site Art Line Bedside Blood Gas pH (LAB) 7.33 (7.35-7.45) Bedside Blood Gas pCO2 (LAB) 33 mmHg (35-46) Bedside Blood Gas pO2 (LAB) 70 mmHg (80-95) Bedside Blood Gas HCO3 (LAB) 18 meq/L (19-24) Bedside Blood Gas Total CO2 19 mEq/l (24-31) Bedside Blood Gas Base Excess (LAB) -8.0 meq/L (-9-1.8) Bedside Blood Gas O2 Saturation 92.0 % (90-95) Jose Test NA Oxygen Delivery Device Ventilator Bedside Oxygen Rate (breaths/min) 18 Blood Gas Minute Ventilation 12.5 Bedside FiO2 40 % Blood Gas Tidal Volume 500 Blood Gas PEEP 5 Sodium Level 132 mmol/L (136-145) Potassium Level 5.8 mmol/L (3.5-5.1) Chloride Level 98 mmol/L (98-107) Carbon Dioxide Level 19 mmol/L (21-32) Anion Gap 15.0 mmol/L (3-11) Blood Urea Nitrogen 75 mg/dl (7-18) Creatinine 3.68 mg/dl (0.60-1.20) Est Creatinine Clear Calc Drug Dose 15.0 ml/min Estimated GFR () 13.8 Estimated GFR (Non- 11.9 BUN/Creatinine Ratio 20.5 (10-20) Random Glucose 142 mg/dl (70-99) Calcium Level 6.8 mg/dl (8.5-10.1) Phosphorus Level 7.0 mg/dl (2.5-4.9) Magnesium Level 2.3 mg/dl (1.8-2.4) Prothrombin Time 17.2 SECONDS (9.0-12.0) Prothromb Time International Ratio 1.7 (0.9-1.1) Test 11/12/17 07:56 11/12/17 08:23 11/12/17 08:26 11/12/17 10:00 Blood Gas Sample Site Art Line Bedside Blood Gas pH (LAB) 7.27 (7.35-7.45) Bedside Blood Gas pCO2 (LAB) 43 mmHg (35-46) Bedside Blood Gas pO2 (LAB) 50 mmHg (80-95) Bedside Blood Gas HCO3 (LAB) 19 meq/L (19-24) Bedside Blood Gas Total CO2 21 mEq/l (24-31) Bedside Blood Gas Base Excess (LAB) -8.0 meq/L (-9-1.8) Bedside Blood Gas O2 Saturation 79.0 % (90-95) Jose Test NA Oxygen Delivery Device Ventilator Bedside Oxygen Rate (breaths/min) 18 Blood Gas Minute Ventilation 12.9 Bedside FiO2 70 % Blood Gas Tidal Volume 500 Blood Gas PEEP 5 Bedside Glucose 124 mg/dl (70-90) Lactic Acid Level 6.8 mmol/L (0.4-2.0) Ionized Calcium 0.90 mmol/l (1.12-1.32) Urine Color YELLOW Urine Appearance TURBID (CLEAR) Urine pH 5.0 (4.5-7.5) Urine Specific [place] 1.019 (1.000-1.030) Urine Protein 4+ (NEG) Urine Glucose (UA) NEG (NEG) Urine Ketones NEG (NEG) Urine Occult Blood NEG (NEG) Urine Nitrite NEG (NEG) Urine Bilirubin NEG (NEG) Urine Urobilinogen NEG (NEG) Urine Leukocyte Esterase SMALL (NEG) Urine WBC (Auto) 10-30 /hpf (0-5) Urine RBC (Auto) 0-4 /hpf (0-4) Urine Hyaline Casts (Auto) 1-5 /lpf (0-5) Urine Epithelial Cells (Auto) >30 /lpf (0-5) Urine Bacteria (Auto) NEG (NEG) Urine Renal Epithelial Cells /lpf (0-5) Urine Crystals AMORPHOUS SEDIMENT (NONE Urine Yeast (Auto) BUD W/ HYPHAE (NONE PRSENT) Test 11/12/17 11:49 11/12/17 12:54 11/12/17 13:14 11/12/17 13:57 Activated Partial Thromboplast Time > 300.0 SECONDS > 300.0 SECONDS Partial Thromboplastin Ratio > 11.0 > 11.0 Troponin I 3.860 ng/ml (0-0.045) Bedside Glucose (other) 161 mg/dl (70-99) 167 mg/dl (70-99) Assessment & Plan Assessment * 67 yo F critically ill in ICU s/p PEA arrest, requiring significant pressure support. Starting empiric antibiotics 2nd acute decompensation * Starting Zosyn, vancomycin, doxycycline * Renal * Baseline SCr 1.7 mg/dL in June 2017, but more recently has not been below 2.4 mg/dL * Acute elevation of SCr to 3.7 mg/dL * Per nephrology, pt not likely able to tolerate HD 2nd hemodynamics Vancomycin * Goal trough 15-20 mcg/mL * Will give smaller loading dose of 17 mg/kg for now as patient is unlikely to be dialyzed and therefore will not likely to clear significant vancomycin 2nd significant renal dysfunction. Therefore would prefer to avoid over-estimate * Will order random level about 12 hours after loading dose Plan * Vancomycin 1500 mg IV x1 now * Random level @ 1900 Pharmacy will continue to follow and will adjust dose/frequency as necessary. Thank you
[2017-11-12 15:04] LABS: PTT PATIENT > 300.0 SECONDS (21.0-31.0)
[2017-11-12] MEDS ORDERED: MoRPHine SULF/NSS 250MG/250ML 250 ML IV PRN (15:45)
[2017-11-12 15:57] LABS: PTT PATIENT > 300.0 SECONDS (21.0-31.0)
--- NOTE | 2017-11-12 15:57 | Critical Care Progress Note ---
Critical Care Progress Note Date of Service Nov 12, 2017. Critical Care Progress Note I had additional discussions with the family regarding her continued clinical deterioration. I was able to discuss with all the sons including Alonso who was available via phone. He was attempting to come to the bedside from a location approximately 3 hours away. We continued with the dextrose and insulin infusion to treat the hyperkalemia. After discussing treatment options with the family the decision was made to stop additional laboratory analysis and continue current treatment in an effort to allow Alonso an opportunity to come to the hospital. Ultimately at approximately 1545 the decision was made to withdraw all life sustaining measures and optimize patient's comfort and terminally extubate. I have personally spent 25 minutes of critical care time in the direct management of this patient. This is a life/limb threatening event. This includes time spent evaluating patient, direct bedside care, chart review, placing orders, interpretation of diagnostic studies, discussion with consultants, patient, and/or family members regarding treatment decisions, as well as other required patient management activities. This time is exclusive of all separately billable procedures, and teaching time and separate from and in addition to any other critical care service time.
[2017-11-12] MEDS ORDERED: PIPERACILL/TAZOBAC IV 3.375 GM in DEXTROSE 5% 100ML IV SCH (16:00)
[2017-11-12] MEDS ORDERED: SODIUM CHLORIDE 0.9% 10ML FLUSH IV ONE (16:04)
[2017-11-12] MEDS ORDERED: SODIUM BICARB 8.4% INJ 50 MEQ/50 ML SYR IV ONE (16:04)
--- NOTE | 2017-11-12 16:13 | Death Pronouncement Note ---
Pronouncement Note Date & Time of Nov 12, 2017. 1605 Pronouncement At time of pronouncement the patients pupils were fixed and dilated, there was no spontaneous respiratory effort, no palpable pulse, no audible heart tones, and no response to pain or voice. Family was present at the bedside grieving.
--- NOTE | 2017-11-12 16:16 | ECHOCARDIOGRAM REPORT ---
*NOTICE TO RECEIVING [employer] This information is strictly Confidential and protected under [place] law. [place] law prohibits you from making any further disclosure of this information unless further disclosure is expressly permitted by the written consent of the person to whom it pertains or is authorized by law. A general authorization for the release of medical or other information is not sufficient for this purpose. Hospital accepts no responsibility if the information is made available to any other person, INCLUDING THE PATIENT. Interpretation Summary * Name: RYNE DONIS Study Date: 11/12/2017 06:48 AM BP: 86/37 mmHg * Patient Location: .MSICU\S\E108\S\1 HR: 88 * : 1950 (M/d/yyyy) Gender: Female Height: 62 in * Age: 67 yrs Ethnicity: [place] Weight: 197 lb * Ordering Physician: Kendra Patel * Referring Physician: Self, Referred * Performed By: Aleja Mack RDCS * * Reason For Study: FOLLOW UP, PERSISTENT HYPOTENSION, CHECK LV * BSA: 1.9 m2 * Patient was supine and intubated * -- Conclusions -- * The left ventricle is normal in size. * There is moderate concentric left ventricular hypertrophy. * There is severe global hypokinesis of the left ventricle. * Septal motion is consistent with conduction abnormality. * Ejection Fraction = 15-20%. * The right ventricle is normal size. * Normal inferior vena cava diameter and respiratory variation suggests normal central venous pressure. * Aortic valve sclerosis moderate, without significant aortic valvular stenosis. Procedure Details * A contrast injection of Definity was performed to improve assessment of LV function. * Contrast was injected into an intravenous site in the central line. * One vial of Definity ultrasound contrast was diluted in normal saline to a total volume of 10 ml. A total of '2' ml of solution was administered during imaging. * Lot # [id number] of Definity utilized for procedure. * Expiration date DEC 03. * The attending nurse who injected the contrast agent was JOCELYN ROSS RN. Left Ventricle * The left ventricle is normal in size. * There is moderate concentric left ventricular hypertrophy. * Ejection Fraction = 15-20%. * There is severe global hypokinesis of the left ventricle. * Septal motion is consistent with conduction abnormality. Right Ventricle * The right ventricle is normal size. Mitral Valve * The mitral valve anatomy is normal. Aortic Valve * Aortic valve sclerosis moderate, without significant aortic valvular stenosis. Great Vessels * Normal inferior vena cava diameter and respiratory variation suggests normal central venous pressure. MMode 2D Measurements and Calculations IVSd 1.6 cm IVSs 1.9 cm LVIDd 4.6 cm LVIDs 3.7 cm LVPWd 2.0 cm LVPWs 2.1 cm IVS/LVPW 0.80 FS 20.8 % EDV(Teich) 98.4 ml ESV(Teich) 56.7 ml EF(Teich) 42.4 % EDV(cubed) 98.7 ml ESV(cubed) 49.1 ml EF(cubed) 50.2 % % IVS thick 14.0 % % LVPW thick 4.6 % LV mass(C)d 395.2 grams LV mass(C)dI 208.1 grams/m\S\2 LV mass(C)s 335.4 grams LV mass(C)sI 176.6 grams/m\S\2 SV(Teich) 41.7 ml SI(Teich) 21.9 ml/m\S\2 SV(cubed) 49.6 ml SI(cubed) 26.1 ml/m\S\2 LVAd ap4 32.8 cm\S\2 LVLd ap4 8.4 cm EDV(MOD-sp4) 105.9 ml EDV(sp4-el) 109.3 ml LVAs ap4 23.8 cm\S\2 LVLs ap4 7.7 cm ESV(MOD-sp4) 60.2 ml ESV(sp4-el) 62.3 ml EF(MOD-sp4) 43.1 % EF(sp4-el) 43.0 % SV(MOD-sp4) 45.7 ml SI(MOD-sp4) 24.1 ml/m\S\2 SV(sp4-el) 47.0 ml SI(sp4-el) 24.7 ml/m\S\2
--- NOTE | 2017-11-12 16:54 | Death Summary ---
Summary of Admission Date Nov 11, 2017 at 19:24 Date & Time of Nov 12, 2017. 1605 Cause of Acute systolic congestive heart failure Secondary Diagnoses Non-ST elevation myocardial infarction Hemodialysis dependent kidney failure Hyperkalemia Diabetes mellitus Hypertension COPD Cardiac arrest: Pulseless electrical activity Obstructive sleep apnea Hypercholesterolemia Hospital Course Patient presented to the hospital on November 11 after undergoing outpatient dialysis. During her ED course she became acutely dyspneic requiring intubation. She unfortunately suffered a cardiac arrest with pulseless electrical activity. Return of spontaneous circulation was achieved and the patient was transferred to the ICU for further evaluation and management. While in the ICU the patient's condition continued to deteriorate requiring administration of 3 vasoactive medications in order to maintain a perfusing pressure. She was seen by cardiology as well as nephrology. She underwent a limited echocardiogram. Family was updated and in accordance with the patient wishes life-prolonging measures were discontinued and the patient peacefully at 1605 with her family present at the bedside. Copy To Karla Todd M.D.
[2017-11-12] MEDS ORDERED: HEPARIN SOD 5000 UNIT/0.5 ML CARP SQ SCH (18:00)
--- NOTE | 2017-11-12 18:47 | CARDIOLOGY CONSULTATION ---
DATE OF CONSULTATION: 11/12/2017 The patient was seen and examined at 8:30 this morning. INDICATIONS: Status post PEA arrest. HISTORY OF PRESENT ILLNESS: The patient is a 67-year-old female known to me from recent admission with underlying history of mixed etiology cardiomyopathy with past noted nonischemic cardiomyopathy, initially diagnosed in 2013 with mild nonobstructive distal coronary vessel disease. Ejection fraction has improved and near normal, but recently declined once again during recent hospitalization with obstructive lung disease exacerbation with ejection fraction noted to be 20-25%. Underlying medical problems include O2 dependent obstructive lung disease and sleep apnea, chronic renal disease, dialysis dependent, history of peripheral neuropathy. During last admission, we had extensive discussion regarding further investigation including diagnostic cardiac catheterization, both right and left heart to assess pulmonary pressures, but also exclude underlying ischemic heart disease. The patient after extensive discussions declined further investigations noting she would not consider revascularization attempts of warranted. Ultimate goals were made from medical management. The patient presented this admission, the evening prior having developed abdominal pain and discomfort post-dialysis as well as complaints of shortness of breath. The patient was referred for intubation; however, after intubation, the patient had pulseless respiratory arrest and PEA. She did recover rhythm with epinephrine, bicarb and pressor support. She was placed in medical intensive care unit. The patient was seen this morning intubated and sedated with marginal blood pressures in the 60s despite pressors. Echocardiogram done at bedside demonstrated severe diffuse LV dysfunction, EF 15-20% without distinct segmental feature. ALLERGIES: EZE INHIBITORS, HYDRALAZINE, AND ISOSORBIDE DINITRATE. MEDICATIONS: Prior to hospitalization were carvedilol 6.25 mg b.i.d., losartan 25 mg p.o. day, prednisone slow taper, oxygen 2 liters nasal cannula, insulin, vitamin B, and calcium acetate. OBJECTIVE: VITAL SIGNS: At the time of examination, heart rate was 80, blood pressure was 72/36. HEENT: Normocephalic and atraumatic. The patient was sedated and intubated. NECK: Thick, distinct jugular venous distention was not determined. LUNGS: Reveal coarse airway sounds. CARDIOVASCULAR: Regular with distant heart sounds. ABDOMEN: Soft. EXTREMITIES: Without cyanosis or clubbing. There is no peripheral edema. LABORATORY AND IMAGING DATA: EKG on initial presentation, per review of records revealed sinus tachycardia with right bundle branch, left intrafascicular block. Repeat EKG later demonstrates sinus rhythm with left voltage criteria with left ventricular hypertrophy with strain pattern, conduction abnormalities resolved. EKG this morning demonstrates similar findings of voltage criteria for left ventricular hypertrophy. No significant changes from prior studies. Laboratory studies on presentation - white cell count was 21,000, hemoglobin 12.4, hematocrit 37.7. Sodium is 132, potassium 4.8, chloride 97, bicarbonate 23, BUN 55, creatinine 3.07. IMPRESSION AND PLAN: A 67-year-old female with history of diffuse cardiomyopathy, uncertain etiology, nonischemic versus ischemic, presented with acute abdominal pain and discomfort in the course of evaluation had respiratory arrest and failure, complicated by pulseless cardiac rhythm. She underwent resuscitation aggressively, but continues to have marginal blood pressures, left ventricular systolic function has declined slightly from baseline, though without segmental features, acute myocardial ischemia not excluded. Discussed findings with the loading unit operator. The patient well known to me from multiple recent evaluations. She is on appropriate medical therapies, though her previous wishes that she would not be considered for aggressive resuscitative efforts for extended mechanical ventilation or life support, per her description. Notes she would not consider further cardiac investigation at time of recent hospitalization. Suspect family who were in agreement with her initially. We will agree to consider reduction in life support.
== END 2017-11-12 16:05 | disposition expired | DRG 208 ==
LOC: EDBD 11:47 → C.EDC 11:49 → C.MSICU 19:24
PROVIDERS: ADMIT Family Medicine; ATTEND Family Medicine
PROC: 5A1945Z Respiratory Ventilation, 24-96 Consecutive Hours (ICD-10-PCS; principal; 2017-11-12)
DX: J96.01 Acute respiratory failure with hypoxia (principal); I50.21 Acute systolic (congestive) heart failure; I21.4 Non-ST elevation (NSTEMI) myocardial infarction; N18.6 End stage renal disease; G93.40 Encephalopathy, unspecified; E87.2 Acidosis; M86.9 Osteomyelitis, unspecified; I13.2 Hypertensive heart and chronic kidney disease with heart failure and with stage 5 chronic kidney disease, or end stage renal disease; J44.9 Chronic obstructive pulmonary disease, unspecified; Z66 Do not resuscitate; R57.0 Cardiogenic shock; E78.00 Pure hypercholesterolemia, unspecified; E66.9 Obesity, unspecified; G47.33 Obstructive sleep apnea (adult) (pediatric); K59.00 Constipation, unspecified; E78.5 Hyperlipidemia, unspecified; E11.49 Type 2 diabetes mellitus with other diabetic neurological complication; E87.5 Hyperkalemia; D64.9 Anemia, unspecified; I95.9 Hypotension, unspecified; R91.8 Other nonspecific abnormal finding of lung field; Z87.01 Personal history of pneumonia (recurrent); Z99.2 Dependence on renal dialysis; Z79.4 Long term (current) use of insulin; Z82.49 Family history of ischemic heart disease and other diseases of the circulatory system; Z99.81 Dependence on supplemental oxygen